=== PATIENT | male | born 1985 | race Caucasian/White ===

== ENCOUNTER 2022-10-31 14:06 | Inpatient (IN) | payer OTHER, MEDICAID, SELFPAY ==
--- NOTE | ~2022-10-31 | CT_ITS ---
EXAMINATION: CT HEAD WITHOUT CONTRAST CLINICAL INFORMATION: Altered mental status. COMPARISON: None. TECHNIQUE: Contiguous axial imaging was performed from the skullbase to vertex without intravenous administration of contrast. This CT examination was performed using dose optimization techniques as appropriate, variously including the following: *Automated exposure control *Adjustment of mA and/or kV according to patient size (this includes techniques or standardized protocols for targeted exams where dose is matched to indication/reason for exam; i.e. extremities or head) *Use of iterative reconstruction technique DLP: 794 mGy-cm. FINDINGS: There is no evidence of acute intracranial hemorrhage or territorial infarction. No abnormal mass effect or midline shift is seen. Resendiz to white matter differentiation is well preserved. No extra-axial fluid collections are identified. The ventricles are normal size. There is no abnormal attenuation within the brain parenchyma. The osseous structures are normal. The mastoid air cells are well aerated. There is trace mucosal thickening dependently in the right maxillary sinus. 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 CT/CT head/brain wo IV con IMPRESSION: No acute intracranial pathology.
[2022-10-31 14:13] VITALS: BP 128/91; PULSE 151; RESP 16; TEMP 36.1; BMI 22.4
--- NOTE | 2022-10-31 14:34 | ED.PSYCH ---
HPI - Psych General Chief Complaint: Psychiatric Symptoms Stated Complaint: SEC 12,DEPRESSED PER EMS Time Seen by Provider: 10/31/22 14:20 Source: patient Mode of arrival: EMS Limitations: no limitations History of Present Illness HPI Narrative: 37-year-old male who presents emergency department on a Section 12 for major depressive disorder, not eating not drinking. The patient states he does have a history intranasal heroin use disorder and has been living in a sober house. States that he recently moved to a new sober house 6 days prior. Since then he has had no appetite and has not been eating or drinking. He was evaluated by [facility] felt that he had major depressive disorder as the cause of his anorexia and he was placed on a Section 12 and sent to the emergency department for a bed search. The patient states he does feel depressed but would not going to details. He denied insomnia. He states that he is not suicidal or homicidal knees never try to injure himself in the past. Review of systems was positive for chills and loss of appetite otherwise was unremarkable. He states that he has not used cocaine since April 2022. He denies any other drug use. Related Data Home Medications Medication Instructions Recorded Confirmed No Known Home Meds 10/31/22 10/31/22 Allergies Allergy/AdvReac Type Severity Reaction Status Date / Time No Known Allergies Allergy Verified 10/31/22 14:47 Review of Systems Review of Systems: Yes all other systems are reviewed and are negative [facility] Past Medical History [facility] Narrative: Past medical history: Major depressive disorder, anxiety, cocaine use disorder. Social history: He has been living in a sober house since April 2022. He states that he last used cocaine April 2022. He denies tobacco and alcohol use. Social History Social History Advance Directives: No Advance Directives Information Provided: Yes Physical Exam Vital Signs: Vital Signs: Last Vital Signs Temp 97.8 F 10/31/22 20:31 Pulse 92 10/31/22 20:31 Resp 18 10/31/22 20:31 BP 123/90 H 10/31/22 20:31 Pulse Ox 98 10/31/22 20:31 O2 Del Method Room Air 10/31/22 20:31 BMI result Body Mass Index 22.4 Awake, alert, male patient, very flat depressed affect, answers all questions appropriately HEENT: Head: Yes normal to inspection, Yes normocephalic and Yes atraumatic Ears: external ears normal General nose exam: Normal external nose present Face and sinus: Yes normal facial exam Mouth: Normal oral and palatal mucosa present Throat: Yes posterior oropharynx normal Eyes: General: appearance normal, both eyes and all related structures Pupils: Equal, round and reactive pupils present Neck: Neck: Yes normal visual inspection, Yes no lymphadenopathy, Yes trachea midline and Yes supple Chest: Chest palpation & inspection: normal inspection of the chest and normal palpation of entire chest wall Resp: Effort & Inspection: normal respiratory effort and able to speak in complete sentences Auscultation: clear to auscultation bilaterally Cardio: Rate: regular rate Rhythm: regular rhythm Heart sounds: S1 normal heart sound present, S2 normal heart sound present and no murmurs GI: Inspection: Yes normal to inspection Palpation (GI): Soft to palpation, nontender and no guarding Auscultation: normal bowel sounds : General: Yes no CVA tenderness Back/Spine/Pelvis: Back: no CVA tenderness Skin: General skin exam: no rashes or lesions noted Neuro: Cranial nerves: Yes CN's II-XII intact bilaterally and Yes Equal, round and reactive pupils present Cognition (Neuro): normal cognition Motor exam (neuro): 5/5 motor strength present throughout Extrem: General: Yes normal to inspection Psych: Appearance: grossly normal Speech and movement: Normal speech and movement present Affect: Indifferent affect present (Flat affect, appears depressed) Attitude: cooperative Thought process: Normal thought process present Thought content: Normal thought content present, suicidality and no homicidality Medications Administered Generic Name Dose Route Start Last Admin Trade Name Freq PRN Reason Stop Dose Admin Dextrose/Sodium Chloride 1,000 mls @ 999 mls/hr 10/31/22 20:00 10/31/22 21:15 D51/2ns IVCONT 999 mls/hr .Q1H1M GABRIEL Administration Dextrose/Sodium Chloride 1,000 mls @ 125 mls/hr 10/31/22 22:00 10/31/22 22:06 D51/2ns IVCONT 125 mls/hr .Q8H GABRIEL Administration Discontinued Medications Generic Name Dose Route Start Last Admin Trade Name Freq PRN Reason Stop Dose Admin Sodium Chloride 1,000 mls @ 999 mls/hr 10/31/22 19:49 10/31/22 20:27 Ns IV 10/31/22 20:49 999 mls/hr .Q1H1M STA Administration Medical Decision Making Medical Decision Making [facility] Narrative: 37-year-old male with a history major depressive disorder, anxiety and cocaine use disorder (has not used cocaine since April 2022) who is living in a sober house and recently moved to a new house 6 days prior. The patient denies suicidal homicide ideation. physical examination was on remarkable except for a flat depressed affect. physical examination was a remarkable. laboratory evaluation was ordered. patient will be kept in the emergency department behavioral health unit until a appropriate disposition can be determined by the care team. 2156: The patient's laboratory evaluation is consistent with severe dehydration as reflected by high sodium of 153 and volume depletion with an elevated BUN of 44. The patient refused to drink any fluid or eat any food while he was in the Behavioral Health Unit. The patient was transferred to the emergency department, an IV was started and he was ordered to get normal saline x1 L and D5 0.5 NS x1 L. Patient continues to refuse oral fluids therefore I ordered D5 0.5 NS at 125 mL/hr. The patient will need to be admitted to the hospitalist service so that we can continue to give him IV fluids until he can be evaluated by Psychiatry to help with his major depressive disorder and anorexia. 2206: I did discuss, over tiger text, the patient's presentation with the covering hospitalist, who will admit the patient for further management. Differential Diagnosis Differential Diagnoses: The differential diagnosis associated with the presentation includes Differential diagnosis includes but is not limited to depression, anxiety, anorexia, electrolyte abnormality, anemia, hypothyroidism. Admission/Observation Consideration of admission/observation: Escalation of care including admission/observation considered Consult Healthcare Provider Management of the patient was discussed with: Hospitalist Lab Data [facility] Lab Attestation statement: I reviewed the patient's lab results. My interpretation patient's laboratory evaluation is as follows: Elevated H&H of 19.759.2-secondary to hemoconcentration. Elevated sodium 153. Elevated BUN 44. Elevated bilirubin 1.3. COVID-19 was negative. Acetaminophen and salicylates negative. ETOH below detectable limits. 10/31/22 17:13 10/31/22 17:13 Labs: Lab Results 10/31/22 10/31/22 10/31/22 Range/Units 14:57 15:28 17:13 WBC 10.9 H (4.8-10.8) X10*3/uL RBC 7.09 H (4.60-5.80) X10*6/uL Hgb 19.7 H (14.0-18.0) g/dl Hct 59.2 H (42.0-52.0) % MCV 83.5 (80.0-98.0) fL MCH 27.8 (27.0-33.0) pg MCHC 33.3 (31.0-36.0) g/dl RDW 11.3 (11.0-16.0) % Plt Count 276 (160-400) X10*3/uL MPV 11.0 (9.4-12.4) fL Immature Gran % (Auto) 0.6 H (0.0-0.4) % Neut % (Auto) 72.6 (45-73) % Lymph % (Auto) 18.8 L (20-40) % [place] % (Auto) 7.1 (2-11) % Eos % (Auto) 0.4 (0-4) % Baso % (Auto) 0.5 (0-2) % Lymph # (Auto) 2.1 (1.2-4.9) X10*3/uL [place] # (Auto) 0.8 (0.1-1.2) X10*3/uL Eos # (Auto) 0.0 (0.0-0.4) X10*3/uL Baso # (Auto) 0.1 (0.0-0.2) X10*3/uL Abs Immat Gran (auto) 0.06 H (0.00-0.03) X10*3/uL Absolute Neuts (auto) 7.9 (2.0-8.3) x10*3/uL Absolute Nucleated RBC 0.000 (0.0-0.012) X10*3/uL Nucleated RBC % (auto) 0.0 (0.0-0.2) /100WBC Sodium (135-145) mmol/L Potassium (3.3-5.1) mmol/L Chloride (96-108) mmol/L Carbon Dioxide (22-29) mmol/L Anion Gap (12-20) BUN (9-16) mg/dL Creatinine (0.5-1.4) mg/dL Estim Creat Clear Calc Estimated GFR Random Glucose (60-115) mg/dL Calcium (8.4-10.2) mg/dL Total Bilirubin (0.0-1.0) mg/dL AST (5-37) U/L ALT (0-40) U/L Alkaline Phosphatase (39-117) U/L Total Protein (6.5-8.0) g/dL Albumin (3.5-5.0) g/dL TSH (0.32-4.0) uIU/mL Salicylates (15-30) mg/dL Urine Opiates Screen Not Detected (Not Detect) Urine Fentanyl Screen Not Detected (Not Detect) Acetaminophen (<30) mcg/mL Ur Barbiturates Screen Not Detected (Not Detect) Ur Phencyclidine Scrn Not Detected (Not Detect) Ur Amphetamines Screen Not Detected (Not Detect) U Benzodiazepines Scrn Not Detected (Not Detect) Urine Cocaine Screen Not Detected (Not Detect) U Marijuana (THC) Screen Not Detected (Not Detect) Ethyl Alcohol mg/dL COVID-19 ([facility]) Negative (Negative) COVID-19 Clin Com See Note 10/31/22 10/31/22 Range/Units 17:13 17:13 WBC (4.8-10.8) X10*3/uL RBC (4.60-5.80) X10*6/uL Hgb (14.0-18.0) g/dl Hct (42.0-52.0) % MCV (80.0-98.0) fL MCH (27.0-33.0) pg MCHC (31.0-36.0) g/dl RDW (11.0-16.0) % Plt Count (160-400) X10*3/uL MPV (9.4-12.4) fL Immature Gran % (Auto) (0.0-0.4) % Neut % (Auto) (45-73) % Lymph % (Auto) (20-40) % [place] % (Auto) (2-11) % Eos % (Auto) (0-4) % Baso % (Auto) (0-2) % Lymph # (Auto) (1.2-4.9) X10*3/uL [place] # (Auto) (0.1-1.2) X10*3/uL Eos # (Auto) (0.0-0.4) X10*3/uL Baso # (Auto) (0.0-0.2) X10*3/uL Abs Immat Gran (auto) (0.00-0.03) X10*3/uL Absolute Neuts (auto) (2.0-8.3) x10*3/uL Absolute Nucleated RBC (0.0-0.012) X10*3/uL Nucleated RBC % (auto) (0.0-0.2) /100WBC Sodium 153 H (135-145) mmol/L Potassium 3.6 (3.3-5.1) mmol/L Chloride 111 H (96-108) mmol/L Carbon Dioxide 25 (22-29) mmol/L Anion Gap 21 H (12-20) BUN 44 H (9-16) mg/dL Creatinine 1.25 (0.5-1.4) mg/dL Estim Creat Clear Calc 86.4 Estimated GFR > 60 Random Glucose 129 H (60-115) mg/dL Calcium 10.5 H (8.4-10.2) mg/dL Total Bilirubin 1.3 H (0.0-1.0) mg/dL AST 22 (5-37) U/L ALT 19 (0-40) U/L Alkaline Phosphatase 84 (39-117) U/L Total Protein 8.9 H (6.5-8.0) g/dL Albumin 4.8 (3.5-5.0) g/dL TSH 0.79 (0.32-4.0) uIU/mL Salicylates < 5.0 L (15-30) mg/dL Urine Opiates Screen (Not Detect) Urine Fentanyl Screen (Not Detect) Acetaminophen < 17 (<30) mcg/mL Ur Barbiturates Screen (Not Detect) Ur Phencyclidine Scrn (Not Detect) Ur Amphetamines Screen (Not Detect) U Benzodiazepines Scrn (Not Detect) Urine Cocaine Screen (Not Detect) U Marijuana (THC) Screen (Not Detect) Ethyl Alcohol < 10 mg/dL COVID-19 ([facility]) (Negative) COVID-19 Clin Com Discharge Plan Discharge Clinical Impression: Depression, Acute hypernatremia, Acute dehydration, Fluid volume depletion, Anorexia Patient Disposition: Admitted As Inpatient Interventions: [place]-Suicide Risk Severity Scale Last Done: 10/31/22 14:16
[2022-10-31 15:24] LABS: Amphetamine Screen Urine Not Detected (Not Detect); Barbiturates, Urine Not Detected (Not Detect); Benzodiazepines Screen Urine Not Detected (Not Detect); Cannabinoid Screen Urine Not Detected (Not Detect); Cocaine Screen Urine Not Detected (Not Detect); Fentanyl, urine Not Detected (Not Detect); Opiate Screen Urine Not Detected (Not Detect); Phencyclidine Screen Urine Not Detected (Not Detect)
[2022-10-31 16:11] LABS: COVID-19 Test Negative (Negative); IDNOW Serial# 9DB6401D
[2022-10-31 17:21] LABS: MANUAL DIFF FLAG NO
[2022-10-31 17:27] LABS: Basophils Absolute Auto 0.1 X10*3/uL (0.0-0.2); Basophils Percent Auto 0.5 % (0-2); Eosinophils Percent Auto 0.4 % (0-4); Hemoglobin 19.7 g/dl (14.0-18.0); Imm Gran Abs Auto 0.06 X10*3/uL (0.00-0.03); Imm Gran Pct Auto 0.6 % (0.0-0.4); Lymphocytes Absolute Auto 2.1 X10*3/uL (1.2-4.9); Lymphocytes Percent Auto 18.8 % (20-40); Mean Corpuscular HGB Conc 33.3 g/dl (31.0-36.0); Mean Corpuscular Hemoglobin 27.8 pg (27.0-33.0); Mean Corpuscular Volume 83.5 fL (80.0-98.0); Monocytes Absolute Auto 0.8 X10*3/uL (0.1-1.2); Monocytes Percent Auto 7.1 % (2-11); Neutrophils Absolute Auto 7.9 x10*3/uL (2.0-8.3); Neutrophils Percent Auto 72.6 % (45-73); Platelet Count 276 X10*3/uL (160-400); Red Blood Count 7.09 X10*6/uL (4.60-5.80); Red Cell Distribution Width 11.3 % (11.0-16.0); White Blood Count 10.9 X10*3/uL (4.8-10.8)
[2022-10-31 17:36] LABS: Hematocrit 59.2 % (42.0-52.0)
[2022-10-31 17:51] LABS: Acetaminophen LAB < 17 mcg/mL (<30); Alanine Aminotransferase 19 U/L (0-40); Albumin Level 4.8 g/dL (3.5-5.0); Alkaline Phosphatase 84 U/L (39-117); Anion Gap 21 (12-20); Aspartate Amino Transferase 22 U/L (5-37); Bilirubin Total 1.3 mg/dL (0.0-1.0); Blood Urea Nitrogen 44 mg/dL (9-16); Calcium 10.5 mg/dL (8.4-10.2); Carbon Dioxide 25 mmol/L (22-29); Chloride 111 mmol/L (96-108); Creatinine Clr Calc Pharmacy 86.4; Estimated Glomerular Filt Rate > 60; Ethanol < 10 mg/dL; Glucose Random 129 mg/dL (60-115); Potassium 3.6 mmol/L (3.3-5.1); Salicylate < 5.0 mg/dL (15-30); Sodium 153 mmol/L (135-145); Total Protein 8.9 g/dL (6.5-8.0)
[2022-10-31 18:07] LABS: TSH reflex Free T4 0.79 uIU/mL (0.32-4.0)
[2022-10-31 19:18] VITALS: BP 103/71; PULSE 128; RESP 16; TEMP 37; O2SAT 93
[2022-10-31] MEDS: 0.9 % Sodium Chloride 1,000 ML 999 ML IV (20:27)
[2022-10-31 20:31] VITALS: BP 123/90; PULSE 92; RESP 18; TEMP 36.6; O2SAT 98
[2022-10-31] MEDS: Dextrose 5 % and 0.45 % NaCl 1,000 ML 999 ML IVCONT (21:15)
[2022-10-31] MEDS: Dextrose 5 % and 0.45 % NaCl 1,000 ML 125 ML IVCONT (22:06)
[2022-10-31 22:12] VITALS: BP 110/79; PULSE 81; RESP 18; TEMP 36.6; O2SAT 99
--- NOTE | 2022-10-31 22:14 | P.HPHOSP_ITS ---
History of Present Illness Date of Service: 10/31/22 Chief Complaint: Depression This is a 37-year-old male with pertinent history of cocaine use disorder who presents from sober home on a Section 12 for not eating and drinking. Patient states he has a history of intranasal heroin use disorder and he last used in April 2022. Over the last 5-6 days, patient states that he has been feeling low and does not have an appetite. Patient was evaluated by [facility] and felt that his mood disorder mainly depression was contributing to his anorexia and he was placed on Section 12 and sent to the ER. Patient denies any complaints. No fever, chills, nausea, vomiting, belly pain. Reports change in interest, energy, appetite, sleep and concentration. No suicidal or homicidal ideations. He denies chest discomfort, palpitations, changes in urinary or bowel habits In the emergency department, sodium was found to be elevated Review of Systems Constitutional: Constitutional: Reports anorexia and Reports lethargy Cardiovascular: Cardiovascular: Reports no additional cardiovascular complaints Respiratory: Respiratory: Reports no additional respiratory complaints Gastrointestinal: Gastrointestinal: Reports no additional gastrointestinal complaints Neurologic: Reports behavioral changes Psychiatric: Psychiatric: Reports behavioral changes, Reports change in mahogany etite, Reports depression and Reports anhedonia PMFSH Medical History Cocaine use disorder Functional capacity: independent ambulation Pertinent family history: Does not know of significant family history in first-degree relatives Social History Advance Directives: No Advance Directives Information Provided: Yes Meds Allergies Allergy/AdvReac Type Severity Reaction Status Date / Time No Known Allergies Allergy Verified 10/31/22 14:47 Active Medications: Current Medications Dextrose/Sodium Chloride (D51/2ns) 1,000 mls @ 125 mls/hr IVCONT .Q8H GABRIEL Last Admin: 10/31/22 22:06 Dose: 125 mls/hr Home Medications Medication Instructions Recorded Confirmed Last Taken Type No Known Home Meds 10/31/22 10/31/22 Unknown History Physical Exam Vital Signs and Narrative: Vital Signs: Last Vital Signs Temp 97.8 F 10/31/22 20:31 Pulse 92 10/31/22 20:31 Resp 18 10/31/22 20:31 BP 123/90 H 10/31/22 20:31 Pulse Ox 98 10/31/22 20:31 O2 Del Method Room Air 10/31/22 20:31 BMI result Body Mass Index 22.4 Middle-aged male lying in bed in no distress Neck supple, no JVD Regular rate and rhythm, S1-S2 heard Regular breath sounds bilaterally, no wheezing or crackles appreciated Abdomen soft nontender, no guarding, no rigidity Patient is awake, alert and oriented to self, place, time and person ; no focal motor deficit Psych: Normal mood No pedal edema Results Labs 10/31/22 17:13 10/31/22 17:13 Labs: Laboratory Results - last 24 hr 10/31/22 10/31/22 10/31/22 14:57 15:28 17:13 MCV 83.5 MCH 27.8 MCHC 33.3 RDW 11.3 Plt Count 276 MPV 11.0 Immature Gran % (Auto) 0.6 H Neut % (Auto) 72.6 Lymph % (Auto) 18.8 L [place] % (Auto) 7.1 Eos % (Auto) 0.4 Baso % (Auto) 0.5 Lymph # (Auto) 2.1 [place] # (Auto) 0.8 Eos # (Auto) 0.0 Baso # (Auto) 0.1 Abs Immat Gran (auto) 0.06 H Absolute Neuts (auto) 7.9 Absolute Nucleated RBC 0.000 Nucleated RBC % (auto) 0.0 Anion Gap Estim Creat Clear Calc Estimated GFR Random Glucose Calcium Total Bilirubin AST ALT Alkaline Phosphatase Total Protein Albumin TSH Salicylates Urine Opiates Screen Not Detected Urine Fentanyl Screen Not Detected Acetaminophen Ur Barbiturates Screen Not Detected Ur Phencyclidine Scrn Not Detected Ur Amphetamines Screen Not Detected U Benzodiazepines Scrn Not Detected Urine Cocaine Screen Not Detected U Marijuana (THC) Screen Not Detected Ethyl Alcohol COVID-19 ([facility]) Negative COVID-19 Clin Com See Note 10/31/22 10/31/22 17:13 17:13 MCV MCH MCHC RDW Plt Count MPV Immature Gran % (Auto) Neut % (Auto) Lymph % (Auto) [place] % (Auto) Eos % (Auto) Baso % (Auto) Lymph # (Auto) [place] # (Auto) Eos # (Auto) Baso # (Auto) Abs Immat Gran (auto) Absolute Neuts (auto) Absolute Nucleated RBC Nucleated RBC % (auto) Anion Gap 21 H Estim Creat Clear Calc 86.4 Estimated GFR > 60 Random Glucose 129 H Calcium 10.5 H Total Bilirubin 1.3 H AST 22 ALT 19 Alkaline Phosphatase 84 Total Protein 8.9 H Albumin 4.8 TSH 0.79 Salicylates < 5.0 L Urine Opiates Screen Urine Fentanyl Screen Acetaminophen < 17 Ur Barbiturates Screen Ur Phencyclidine Scrn Ur Amphetamines Screen U Benzodiazepines Scrn Urine Cocaine Screen U Marijuana (THC) Screen Ethyl Alcohol < 10 COVID-19 ([facility]) COVID-19 Clin Com Assessment and Plan (1) Acute hypernatremia: Status: Acute (2) Acute dehydration: Status: Acute Plan This is a 37-year-old male with pertinent history of cocaine use disorder who presents from sober home on a Section 12 for not eating and drinking. #. Acute hypernatremia due to free water deficit. Resuscitating with isotonic and hypotonic fluids. Monitor sodium #. Relative polycythemia in the setting of intravascular volume depletion #. ?Major depressive disorder contributing to above. Consulting psych and care team #. Cocaine use disorder. Last used in April 2022. UDS negative DVT prophylaxis: Lovenox Full code Regular diet Time Spent With Patient Time: Total time managing care of this patient today ____ minutes. Quality Stroke Does the patient have a stroke diagnosis?: No VTE Prior VTE?: No VTE Risk Level:: Medical - moderate - high VTE Device Contraindication: Treatment Not Indicated VTE Drug Contraindication: N/A - Med Ordered
--- NOTE | 2022-10-31 23:40 | PC.NURSE ---
Report to Tabatha [facility]AND on 3S
[2022-11-01] VITALS (8 sets, daily range): BP systolic 108–130; BP diastolic 68–82; PULSE 68–100; RESP 16–18; TEMP 36–36.7; O2SAT 96–99; BMI 22.4
[2022-11-01 05:46] LABS: MANUAL DIFF FLAG NO
[2022-11-01 05:50] LABS: Basophils Percent Auto 0.5 % (0-2); Eosinophils Absolute Auto 0.1 X10*3/uL (0.0-0.4); Eosinophils Percent Auto 1.4 % (0-4); Hematocrit 46.4 % (42.0-52.0); Hemoglobin 15.7 g/dl (14.0-18.0); Imm Gran Abs Auto 0.02 X10*3/uL (0.00-0.03); Imm Gran Pct Auto 0.2 % (0.0-0.4); Lymphocytes Absolute Auto 2.4 X10*3/uL (1.2-4.9); Mean Corpuscular HGB Conc 33.8 g/dl (31.0-36.0); Mean Corpuscular Hemoglobin 28.5 pg (27.0-33.0); Mean Corpuscular Volume 84.2 fL (80.0-98.0); Mean Platelet Volume 11.1 fL (9.4-12.4); Monocytes Absolute Auto 0.6 X10*3/uL (0.1-1.2); Monocytes Percent Auto 7.1 % (2-11); Neutrophils Absolute Auto 5.3 x10*3/uL (2.0-8.3); Neutrophils Percent Auto 62.8 % (45-73); Platelet Count 197 X10*3/uL (160-400); Red Blood Count 5.51 X10*6/uL (4.60-5.80); Red Cell Distribution Width 11.2 % (11.0-16.0); White Blood Count 8.4 X10*3/uL (4.8-10.8)
[2022-11-01 06:06] LABS: Anion Gap 12 (12-20); Blood Urea Nitrogen 31 mg/dL (9-16); Calcium 9.1 mg/dL (8.4-10.2); Carbon Dioxide 27 mmol/L (22-29); Chloride 110 mmol/L (96-108); Creatinine Clr Calc Pharmacy 125.9; Estimated Glomerular Filt Rate > 60; Glucose Random 145 mg/dL (60-115); Potassium 3.3 mmol/L (3.3-5.1); Sodium 146 mmol/L (135-145)
--- NOTE | 2022-11-01 08:24 | HO.PM.IMPN ---
Subjective Subjective Date of Service: 11/01/22 Interval History: f/u on depression, high sodium depressed but denies SI Physical Exam Vital Signs: Vital Signs: Last Vital Signs Temp 98.1 F 11/01/22 07:30 Pulse 78 11/01/22 07:30 Resp 16 11/01/22 07:30 BP 112/73 11/01/22 07:30 Pulse Ox 98 11/01/22 07:30 O2 Del Method Room Air 11/01/22 07:30 BMI result Body Mass Index 22.4 Const: Other: General: AO X 3, no acute distress Resp: CTA bilateral CVS: S1,S2,RRR GI: +BS, NT, no distention Skin: No rash Neuro: motor grossly intact Psych: appropriate affect, No SI Objective Data Active Medications Acetaminophen (Acetaminophen 325 Mg Tablet) 650 mg PO Q6H PRN PRN Reason: Pain, Mild (Pain Scale 1-3) Enoxaparin Sodium (Enoxaparin Sodium 40 Mg/0.4 Ml Syringe) 40 mg SUBCUT Q24H [facility] Last Admin: 10/31/22 23:01 Dose: Not Given Documented By: LUMA Non-Admin Reason: Patient Refused Dextrose/Sodium Chloride (D51/2ns) 1,000 mls @ 125 mls/hr IVCONT .Q8H [facility] Last Admin: 11/01/22 06:18 Dose: Not Given Documented By: TIFFANIE Non-Admin Reason: IV Running Ondansetron HCl (Ondansetron Hcl 4 Mg/2 Ml Vial) 4 mg IVPUSH Q8H PRN PRN Reason: Nausea and Vomiting Sodium Chloride (0.9 % Sodium Chloride Flush 3 Ml Syringe) 3 ml IVFLUSH QSHIFT [facility] Last Admin: 10/31/22 23:54 Dose: Not Given Documented By: TIFFANIE Non-Admin Reason: IV Running Labs 11/01/22 05:41 11/01/22 05:41 Labs: Laboratory Results - last 24 hr 10/31/22 10/31/22 10/31/22 14:57 15:28 17:13 MCV 83.5 MCH 27.8 MCHC 33.3 RDW 11.3 Plt Count 276 MPV 11.0 Immature Gran % (Auto) 0.6 H Neut % (Auto) 72.6 Lymph % (Auto) 18.8 L [place] % (Auto) 7.1 Eos % (Auto) 0.4 Baso % (Auto) 0.5 Lymph # (Auto) 2.1 [place] # (Auto) 0.8 Eos # (Auto) 0.0 Baso # (Auto) 0.1 Abs Immat Gran (auto) 0.06 H Absolute Neuts (auto) 7.9 Absolute Nucleated RBC 0.000 Nucleated RBC % (auto) 0.0 Anion Gap Estim Creat Clear Calc Estimated GFR Random Glucose Calcium Total Bilirubin AST ALT Alkaline Phosphatase Total Protein Albumin TSH Salicylates Urine Opiates Screen Not Detected Urine Fentanyl Screen Not Detected Acetaminophen Ur Barbiturates Screen Not Detected Ur Phencyclidine Scrn Not Detected Ur Amphetamines Screen Not Detected U Benzodiazepines Scrn Not Detected Urine Cocaine Screen Not Detected U Marijuana (THC) Screen Not Detected Ethyl Alcohol COVID-19 ([facility]) Negative [facility]-[place] Com See Note 10/31/22 10/31/22 11/01/22 17:13 17:13 05:41 MCV 84.2 MCH 28.5 MCHC 33.8 RDW 11.2 Plt Count 197 D MPV 11.1 Immature Gran % (Auto) 0.2 Neut % (Auto) 62.8 Lymph % (Auto) 28.0 [place] % (Auto) 7.1 Eos % (Auto) 1.4 Baso % (Auto) 0.5 Lymph # (Auto) 2.4 [place] # (Auto) 0.6 Eos # (Auto) 0.1 Baso # (Auto) 0.0 Abs Immat Gran (auto) 0.02 Absolute Neuts (auto) 5.3 Absolute Nucleated RBC 0.000 Nucleated RBC % (auto) 0.0 Anion Gap 21 H Estim Creat Clear Calc 86.4 Estimated GFR > 60 Random Glucose 129 H Calcium 10.5 H Total Bilirubin 1.3 H AST 22 ALT 19 Alkaline Phosphatase 84 Total Protein 8.9 H Albumin 4.8 TSH 0.79 Salicylates < 5.0 L Urine Opiates Screen Urine Fentanyl Screen Acetaminophen < 17 Ur Barbiturates Screen Ur Phencyclidine Scrn Ur Amphetamines Screen U Benzodiazepines Scrn Urine Cocaine Screen U Marijuana (THC) Screen Ethyl Alcohol < 10 COVID-19 ([facility]) COVID-19 [employer] Com 11/01/22 05:41 MCV MCH MCHC RDW Plt Count MPV Immature Gran % (Auto) Neut % (Auto) Lymph % (Auto) [place] % (Auto) Eos % (Auto) Baso % (Auto) Lymph # (Auto) [place] # (Auto) Eos # (Auto) Baso # (Auto) Abs Immat Gran (auto) Absolute Neuts (auto) Absolute Nucleated RBC Nucleated RBC % (auto) Anion Gap 12 Estim Creat Clear Calc 125.9 Estimated GFR > 60 Random Glucose 145 H Calcium 9.1 D Total Bilirubin AST ALT Alkaline Phosphatase Total Protein Albumin TSH Salicylates Urine Opiates Screen Urine Fentanyl Screen Acetaminophen Ur Barbiturates Screen Ur Phencyclidine Scrn Ur Amphetamines Screen U Benzodiazepines Scrn Urine Cocaine Screen U Marijuana (THC) Screen Ethyl Alcohol COVID-19 ([facility]) COVID-19 Clin Com Assessment and Plan (1) Depression: Status: Acute (2) Acute hypernatremia: Status: Acute Plan 37-year-old male with pertinent history of cocaine use disorder who presents from sober home on a Section 12 for not eating and drinking. #. Acute hypernatremia due to free water deficit, Na is 146 today after fluid, encourage oral water #. Relative polycythemia in the setting of intravascular volume depletion, resolved #. ?Major depressive disorder contributing to above. Consulting psych and care team pending, medically clear #. Cocaine use disorder. Last used in April 2022. UDS negative DVT prophylaxis: Lovenox Full code Regular diet need for inpatient: hypernatremia, depression SI at risk for self harm Time Spent With Patient Time: Total time managing care of this patient today ____ minutes. Quality Stroke Does the patient have a stroke diagnosis?: No VTE Prior VTE?: No VTE Risk Level:: Medical - moderate - high VTE Device Contraindication: Treatment Not Indicated VTE Drug Contraindication: N/A - Med Ordered
--- NOTE | 2022-11-01 08:30 | P.DS_ITS ---
DS: Providers Provider Date of Service: 11/03/22 Date of admission: 10/31/22 22:13 Primary care physician: Unknown Physician Consults: 10/31/22 22:13 Consult to Care Team Routine Comment: Reason for consultation: MDD Consult to Psychiatry Routine Consulting Provider: Psych Covering Reason for consultation: major depressive disorder DS: Diagnosis Discharge Diagnosis (1) Depression: Status: Acute (2) Acute hypernatremia: Status: Acute DS: Summary Hospital Course Hospital Course: Chief Complaint: Depression This is a 37-year-old male with pertinent history of cocaine use disorder who presents from sober home on a Section 12 for not eating and drinking.? Patient states he has a history of intranasal heroin use disorder and he last used in April 2022.? Over the last 5-6 days, patient states that he has been feeling low and does not have an appetite.? Patient was evaluated by [facility] and felt that his mood disorder mainly depression was contributing to his anorexia and he was placed on Section 12 and sent to the ER.? Patient denies any complaints.? No fever, chills, nausea, vomiting, belly pain.? Reports change in interest, energy, appetite, sleep and concentration.? No suicidal or homicidal ideations.? He denies chest discomfort, palpitations, changes in urinary or bowel habits In the emergency department, sodium was found to be elevated Hospital course: He presented with depression with apathy (not eating or drinking) from a sober home under section 12 and noted to have high sodium of 153 and JAN from not drinking enough water, he was treated with IVF and encouraged to drink plenty of water, sodium level is now 145, and creatinine is normal at 0.76. He continues to refuse to eat or drink or participate in any acivity. He shows sings of catatonia and has been given IV ativan which seems to have improved with him talking more. CT head is normal, ECG is normal. Psychiatry is following him and recommends inpatient Psych treatment. Time Spent with Patient Time attestation: Total time managing care of this patient today ____ minutes. Discharge coordination time: Greater than 30 minutes Quality: Safe Use of Opioids Does Pt have an Active Cancer Diagnosis on the Problem List?: No Quality: Stroke Does the patient have a stroke diagnosis?: No Physical Exam Vital Signs: Vital Signs: Selected Entries 11/03/22 07:25 Temperature 98.0 F Pulse Rate 70 Respiratory Rate 16 Blood Pressure 106/71 Pulse Oximetry 99 Oxygen Delivery Me thod Room Air Const: Other: General: AO X 3, no acute distress Resp: CTA bilateral CVS: S1,S2,RRR GI: +BS, NT, no distention Skin: No rash Neuro: motor grossly intact Psych: flat DS: Data Data Completed and Pending Labs on day of discharge: Laboratory Results - last 24 hr 10/31/22 10/31/22 10/31/22 14:57 15:28 17:13 WBC 10.9 H RBC 7.09 H Hgb 19.7 H Hct 59.2 H MCV 83.5 MCH 27.8 MCHC 33.3 RDW 11.3 Plt Count 276 MPV 11.0 Immature Gran % (Auto) 0.6 H Neut % (Auto) 72.6 Lymph % (Auto) 18.8 L [place] % (Auto) 7.1 Eos % (Auto) 0.4 Baso % (Auto) 0.5 Lymph # (Auto) 2.1 [place] # (Auto) 0.8 Eos # (Auto) 0.0 Baso # (Auto) 0.1 Abs Immat Gran (auto) 0.06 H Absolute Neuts (auto) 7.9 Absolute Nucleated RBC 0.000 Nucleated RBC % (auto) 0.0 Sodium Potassium Chloride Carbon Dioxide Anion Gap BUN Creatinine Estim Creat Clear Calc Estimated GFR Random Glucose Calcium Total Bilirubin AST ALT Alkaline Phosphatase Total Protein Albumin TSH Salicylates Urine Opiates Screen Not Detected Urine Fentanyl Screen Not Detected Acetaminophen Ur Barbiturates Screen Not Detected Ur Phencyclidine Scrn Not Detected Ur Amphetamines Screen Not Detected U Benzodiazepines Scrn Not Detected Urine Cocaine Screen Not Detected U Marijuana (THC) Screen Not Detected Ethyl Alcohol COVID-19 ([facility]) Negative COVID-19 Clin Com See Note 10/31/22 10/31/22 11/01/22 17:13 17:13 05:41 WBC 8.4 RBC 5.51 D Hgb 15.7 D Hct 46.4 D MCV 84.2 MCH 28.5 MCHC 33.8 RDW 11.2 Plt Count 197 D MPV 11.1 Immature Gran % (Auto) 0.2 Neut % (Auto) 62.8 Lymph % (Auto) 28.0 [place] % (Auto) 7.1 Eos % (Auto) 1.4 Baso % (Auto) 0.5 Lymph # (Auto) 2.4 [place] # (Auto) 0.6 Eos # (Auto) 0.1 Baso # (Auto) 0.0 Abs Immat Gran (auto) 0.02 Absolute Neuts (auto) 5.3 Absolute Nucleated RBC 0.000 Nucleated RBC % (auto) 0.0 Sodium 153 H Potassium 3.6 Chloride 111 H Carbon Dioxide 25 Anion Gap 21 H BUN 44 H Creatinine 1.25 Estim Creat Clear Calc 86.4 Estimated GFR > 60 Random Glucose 129 H Calcium 10.5 H Total Bilirubin 1.3 H AST 22 ALT 19 Alkaline Phosphatase 84 Total Protein 8.9 H Albumin 4.8 TSH 0.79 Salicylates < 5.0 L Urine Opiates Screen Urine Fentanyl Screen Acetaminophen < 17 Ur Barbiturates Screen Ur Phencyclidine Scrn Ur Amphetamines Screen U Benzodiazepines Scrn Urine Cocaine Screen U Marijuana (THC) Screen Ethyl Alcohol < 10 COVID-19 ([facility]) COVIDColibrí 11/01/22 05:41 WBC RBC Hgb Hct MCV MCH MCHC RDW Plt Count MPV Immature Gran % (Auto) Neut % (Auto) Lymph % (Auto) [place] % (Auto) Eos % (Auto) Baso % (Auto) Lymph # (Auto) [place] # (Auto) Eos # (Auto) Baso # (Auto) Abs Immat Gran (auto) Absolute Neuts (auto) Absolute Nucleated RBC Nucleated RBC % (auto) Sodium 146 H Potassium 3.3 Chloride 110 H Carbon Dioxide 27 Anion Gap 12 BUN 31 H Creatinine 0.86 Estim Creat Clear Calc 125.9 Estimated GFR > 60 Random Glucose 145 H Calcium 9.1 D Total Bilirubin AST ALT Alkaline Phosphatase Total Protein Albumin TSH Salicylates Urine Opiates Screen Urine Fentanyl Screen Acetaminophen Ur Barbiturates Screen Ur Phencyclidine Scrn Ur Amphetamines Screen U Benzodiazepines Scrn Urine Cocaine Screen U Marijuana (THC) Screen Ethyl Alcohol COVID-19 ([facility]) COVID-Givit Discharge Plan Discharge Anticipated Discharge Date/Time: 11/03/22 08:23 Patient Disposition: Xfer Psychiatric Hosp Discharge Diagnosis: Depression, hypernatremia Referrals: Physician,Unknown J [Primary Care Provider] - 1 Week Discharge Medications: Continued No Known Home Meds Discharge Orders: Discharge Order (Routine); Ordered 11/02/22 Ordered By: Sohail Gravesapah Diet: Advance to usual diet Activity on Discharge: As tolerated Stand Alone Forms: Patient Portal Discharge page Care Plan Goals: Depression treatment Health Concerns: major depression Plan of Treatment: inpatient psychiatric care Assessment: see above
--- NOTE | 2022-11-01 08:48 | MHC.CM.PN ---
PATIENT NOT WAKING TO CASE MANAGEMENT ATTEMPTS. OBSERVER STATES THAT PATIENT HAS BEEN IN AND OUT OF SLEEP. TERRY 11/01 LEFT BEDSIDE. CASE MANAGEMENT NAME WRITTEN ON WHITE BOARD
[2022-11-01] MEDS: 0.9 % Sodium Chloride Flush 3 ML SYRINGE IVFLUSH ×2 (10:18→16:38)
--- NOTE | 2022-11-01 13:02 | PM.PSYCN ---
History of Present Illness Date of Service: 11/01/2022 Chief Complaint: Electrolyte imbalance Reason for Consult: not eating/moving or talking much Requesting physician: Sohail Scott Discussed with referring provider: Yes Sources of Information: patient interviewed, chart reviewed and crisis/core team assessment reviewed HPI Narrative: Mr. Thornton is a 37 year-old male with hx of cocaine in early remission who was assessed by [facility] at request of staff from [facility] where pt has resided since 10/26/2022. Prior to going there, pt was at [facility] from 10/19-10/26. Per [facility] crisis, pt has not showered or had any oral intake since he was admitted to their program. When pt was evaluated by [facility] clinician, pt minimally verbal and only words were I'm fine, I'm tired, I just want to rest. He was sent on sect 12 to [facility] ED. He was found to have hypernatremia (154), BUN 44, Cr 1.25. He received fluids, today BUN 31, Cr 0.86, Na 146. Utox was negative. Pt continues to declined oral food. He is in bed not interacting minimally verbal. Pt declined to answer most questions. He closed his eyes. Then later stated I was asked this questions before. This music writer commented on fact that he also did not provide much information to [facility] clinician nor to [facility]. we discussed concern of pt not having any oral intake and this again causing electrolyte abnormalities and problems with renal function. Pt did not show understanding of this information was mostly staring. Medical Evaluation Reviewed: Yes PENDING SALE TO [facility] Medical History Cocaine use disorder Diagnostics Vital Signs (24Hr): Vital Signs - 24 hr 10/31/22 14:13 10/31/22 19:18 10/31/22 20:31 Temperature 97.0 F 98.6 F 97.8 F Pulse Rate 151 H 128 H 92 Respiratory Rate 16 16 18 Blood Pressure 128/91 H 103/71 123/90 H Pulse Oximetry 93 98 Oxygen Delivery Method Room Air Room Air 10/31/22 22:12 11/01/22 00:00 11/01/22 06:00 Temperature 98 F 96.8 F Pulse Rate 81 100 Respiratory Rate 18 16 16 Blood Pressure 110/79 130/82 Pulse Oximetry 99 98 Oxygen Delivery Method Room Air Room Air 11/01/22 03:58 11/01/22 07:30 11/01/22 11:23 Temperature 97.4 F 98.1 F 97.7 F Pulse Rate 68 78 81 Respiratory Rate 16 16 18 Blood Pressure 114/74 112/73 118/74 Pulse Oximetry 96 98 96 Oxygen Delivery Method Room Air Room Air Room Air BMI result Body Mass Index 22.4 Labs 11/01/22 05:41 11/01/22 05:41 Labs: Laboratory Results - last 48 hr 10/31/22 10/31/22 10/31/22 14:57 15:28 17:13 WBC 10.9 H RBC 7.09 H Hgb 19.7 H Hct 59.2 H MCV 83.5 MCH 27.8 MCHC 33.3 RDW 11.3 Plt Count 276 MPV 11.0 Immature Gran % (Auto) 0.6 H Neut % (Auto) 72.6 Lymph % (Auto) 18.8 L [place] % (Auto) 7.1 Eos % (Auto) 0.4 Baso % (Auto) 0.5 Lymph # (Auto) 2.1 [place] # (Auto) 0.8 Eos # (Auto) 0.0 Baso # (Auto) 0.1 Abs Immat Gran (auto) 0.06 H Absolute Neuts (auto) 7.9 Absolute Nucleated RBC 0.000 Nucleated RBC % (auto) 0.0 Sodium Potassium Chloride Carbon Dioxide Anion Gap BUN Creatinine Estim Creat Clear Calc Estimated GFR Random Glucose Calcium Total Bilirubin AST ALT Alkaline Phosphatase Total Protein Albumin TSH Salicylates Urine Opiates Screen Not Detected Urine Fentanyl Screen Not Detected Acetaminophen Ur Barbiturates Screen Not Detected Ur Phencyclidine Scrn Not Detected Ur Amphetamines Screen Not Detected U Benzodiazepines Scrn Not Detected Urine Cocaine Screen Not Detected U Marijuana (THC) Screen Not Detected Ethyl Alcohol COVID-19 ([facility]) Negative COVID-19 Clin Com See Note 10/31/22 10/31/22 11/01/22 17:13 17:13 05:41 WBC 8.4 RBC 5.51 D Hgb 15.7 D Hct 46.4 D MCV 84.2 MCH 28.5 MCHC 33.8 RDW 11.2 Plt Count 197 D MPV 11.1 Immature Gran % (Auto) 0.2 Neut % (Auto) 62.8 Lymph % (Auto) 28.0 [place] % (Auto) 7.1 Eos % (Auto) 1.4 Baso % (Auto) 0.5 Lymph # (Auto) 2.4 [place] # (Auto) 0.6 Eos # (Auto) 0.1 Baso # (Auto) 0.0 Abs Immat Gran (auto) 0.02 Absolute Neuts (auto) 5.3 Absolute Nucleated RBC 0.000 Nucleated RBC % (auto) 0.0 Sodium 153 H Potassium 3.6 Chloride 111 H Carbon Dioxide 25 Anion Gap 21 H BUN 44 H Creatinine 1.25 Estim Creat Clear Calc 86.4 Estimated GFR > 60 Random Glucose 129 H Calcium 10.5 H Total Bilirubin 1.3 H AST 22 ALT 19 Alkaline Phosphatase 84 Total Protein 8.9 H Albumin 4.8 TSH 0.79 Salicylates < 5.0 L Urine Opiates Screen Urine Fentanyl Screen Acetaminophen < 17 Ur Barbiturates Screen Ur Phencyclidine Scrn Ur Amphetamines Screen U Benzodiazepines Scrn Urine Cocaine Screen U Marijuana (THC) Screen Ethyl Alcohol < 10 COVID-19 ([facility]) COVID-19 Per [facility] 11/01/22 05:41 WBC RBC Hgb Hct MCV MCH MCHC RDW Plt Count MPV Immature Gran % (Auto) Neut % (Auto) Lymph % (Auto) [place] % (Auto) Eos % (Auto) Baso % (Auto) Lymph # (Auto) [place] # (Auto) Eos # (Auto) Baso # (Auto) Abs Immat Gran (auto) Absolute Neuts (auto) Absolute Nucleated RBC Nucleated RBC % (auto) Sodium 146 H Potassium 3.3 Chloride 110 H Carbon Dioxide 27 Anion Gap 12 BUN 31 H Creatinine 0.86 Estim Creat Clear Calc 125.9 Estimated GFR > 60 Random Glucose 145 H Calcium 9.1 D Total Bilirubin AST ALT Alkaline Phosphatase Total Protein Albumin TSH Salicylates Urine Opiates Screen Urine Fentanyl Screen Acetaminophen Ur Barbiturates Screen Ur Phencyclidine Scrn Ur Amphetamines Screen U Benzodiazepines Scrn Urine Cocaine Screen U Marijuana (THC) Screen Ethyl Alcohol COVID-19 ([facility]) COVID-19 Per [facility] Mental Status Exam Mental Status Exam Narrative: Appearance: wearing hospital gown, in NAD Behavior: minimally engaging Speech: minimally spontaneous Psychomotor: retardation noted TP: single word TC: minimally verbal Mood: did not respond Affect: constricted VH/AH: unclear if internally preoccupied Delusions: unable to assess Insight/judgment: impaired x2 Memory/cog: alert, not able to assess orientation as pt does not respond Medications Medications Current Medications Acetaminophen (Acetaminophen 325 Mg Tablet) 650 mg PO Q6H PRN PRN Reason: Pain, Mild (Pain Scale 1-3) Enoxaparin Sodium (Enoxaparin Sodium 40 Mg/0.4 Ml Syringe) 40 mg SUBCUT Q24H [facility] Last Admin: 10/31/22 23:01 Dose: Not Given Dextrose/Sodium Chloride (D51/2ns) 1,000 mls @ 125 mls/hr IVCONT .Q8H [facility] Last Infusion: 11/01/22 09:10 Dose: Infused Ondansetron HCl (Ondansetron Hcl 4 Mg/2 Ml Vial) 4 mg IVPUSH Q8H PRN PRN Reason: Nausea and Vomiting Sodium Chloride (0.9 % Sodium Chloride Flush 3 Ml Syringe) 3 ml IVFLUSH QSHIFT [facility] Last Admin: 11/01/22 10:18 Dose: 3 ml Allergies Allergies Allergy/AdvReac Type Severity Reaction Status Date / Time No Known Allergies Allergy Verified 10/31/22 14:47 Assessment & Plan Assessment & Plan (1) Mood disorder: Status: Acute Code(s): F39 - Unspecified mood [affective] disorder (2) Cocaine use disorder, mild, in early remission: Status: Acute Code(s): F14.11 - Cocaine abuse, in remission Plan Mr. Thornton is a 37 year-old male with hx of cocaine, opioid use in early remission. Pt was transferred to [facility] and since arrival to that facility on 10/26 pt has not talk much, not eating, not showering, in his room. In the ED, utox is neg. found to have hypernatremia, BUN elevation 44, Cr 1.25 in setting of dehydration due to poor oral intake. Labs improved Na 146, BUN 31, 0.86. Pt not talking, eyes close, unclear if underlying psychosis with catatonic features. Pt not showing understanding of consequences if not eating properly. He continues to decline oral intake. PLAN 1. Needs inpatient psych level of care. However, given poor oral intake and need for fluids that may have to be I fluids until mentation improves. 2. Ativan challenge r/o catatonia- given ativan 2mg IV or IM. Total time managing care of this patient today ____ minutes.
[2022-11-01] MEDS: LORazepam 2 MG/ML VIAL IVPUSH (15:04)
[2022-11-01] MEDS: Dextrose 5 % and 0.45 % NaCl 1,000 ML 125 ML IVCONT (18:29)
[2022-11-01] MEDS: Enoxaparin Sodium 40 MG/0.4 ML SYRINGE SUBCUT (22:48)
--- NOTE | 2022-11-02 | ECG_ITS ---
Test Reason : PRE ECT Blood Pressure : / mmHG Vent. Rate : 070 BPM Atrial Rate : 070 BPM P-R Int : 132 ms QRS Dur : 092 ms QT Int : 408 ms P-R-T Axes : 042 061 060 degrees QTc Int : 440 ms Normal sinus rhythm with sinus arrhythmia Normal ECG No previous ECGs available Referred By: Sohail Scott Electronically Signed By:CLARA MOSELEY
[2022-11-02] MEDS: Dextrose 5 % and 0.45 % NaCl 1,000 ML 125 ML IVCONT ×3 (02:45→18:30)
[2022-11-02 04:00] VITALS: BP 109/70; PULSE 73; RESP 18; TEMP 36.7; O2SAT 98
[2022-11-02 07:42] VITALS: BP 111/72; PULSE 71; RESP 18; TEMP 36.7; O2SAT 99
--- NOTE | 2022-11-02 08:39 | HO.PM.IMPN ---
Subjective Subjective Date of Service: 11/02/22 Interval History: f/u on depression, high sodium depressed but denies SI, not eating or drinking on his own Physical Exam Vital Signs: Vital Signs: Last Vital Signs Temp 98.0 F 11/02/22 07:42 Pulse 71 11/02/22 07:42 Resp 18 11/02/22 07:42 BP 111/72 11/02/22 07:42 Pulse Ox 99 11/02/22 07:42 O2 Del Method Room Air 11/02/22 07:42 BMI result Body Mass Index 22.4 Const: Other: General: AO X 3, no acute distress Resp: CTA bilateral CVS: S1,S2,RRR GI: +BS, NT, no distention Skin: No rash Neuro: motor grossly intact Psych: flat , no SI Objective Data Active Medications Acetaminophen (Acetaminophen 325 Mg Tablet) 650 mg PO Q6H PRN PRN Reason: Pain, Mild (Pain Scale 1-3) Enoxaparin Sodium (Enoxaparin Sodium 40 Mg/0.4 Ml Syringe) 40 mg SUBCUT Q24H [facility] Last Admin: 11/01/22 22:48 Dose: 40 mg Documented By: [place] Dextrose/Sodium Chloride (D51/2ns) 1,000 mls @ 125 mls/hr IVCONT .Q8H [facility] Last Admin: 11/02/22 02:45 Dose: 125 mls/hr Documented By: TIFFANIE Ondansetron HCl (Ondansetron Hcl 4 Mg/2 Ml Vial) 4 mg IVPUSH Q8H PRN PRN Reason: Nausea and Vomiting Sodium Chloride (0.9 % Sodium Chloride Flush 3 Ml Syringe) 3 ml IVFLUSH QSHIFT [facility] Last Admin: 11/02/22 07:11 Dose: Not Given Documented By: JUSTIN Non-Admin Reason: IV Running Labs 11/01/22 05:41 11/01/22 05:41 Assessment and Plan (1) Depression: Status: Acute (2) Acute hypernatremia: Status: Acute Plan 37-year-old male with pertinent history of cocaine use disorder who presents from sober home on a Section 12 for not eating and drinking #Major depressive disorder with complete apathy. At this point, he has no acute medical issues and should be considered for Psych admission #. Acute hypernatremia due to free water deficit, resolved with IVF. Is recommended to drink plenty of fluid to avoid recurrence #. Relative polycythemia in the setting of intravascular volume depletion, resolved #. Cocaine use disorder. Last used in April 2022. UDS negative DVT prophylaxis: Lovenox Full code Regular diet need for inpatient: hypernatremia, depression SI at risk for self harm Time Spent With Patient Time: Total time managing care of this patient today ____ minutes. Quality Stroke Does the patient have a stroke diagnosis?: No VTE Prior VTE?: No VTE Risk Level:: Medical - moderate - high VTE Device Contraindication: Treatment Not Indicated VTE Drug Contraindication: N/A - Med Ordered
[2022-11-02 09:32] LABS: Anion Gap 10 (12-20); Blood Urea Nitrogen 24 mg/dL (9-16); Calcium 9.1 mg/dL (8.4-10.2); Carbon Dioxide 28 mmol/L (22-29); Chloride 110 mmol/L (96-108); Creatinine Clr Calc Pharmacy 142.5; Estimated Glomerular Filt Rate > 60; Glucose Random 136 mg/dL (60-115); Potassium 3.3 mmol/L (3.3-5.1); Sodium 145 mmol/L (135-145)
[2022-11-02 11:25] VITALS: BP 106/62; PULSE 69; RESP 20; TEMP 36.7; O2SAT 99
--- NOTE | 2022-11-02 11:28 | PM.PSYCN ---
History of Present Illness Date of Service: 11/02/2022 Chief Complaint: Electrolyte imbalance Requesting physician: Sohail Scott Discussed with referring provider: Yes Sources of Information: patient interviewed, chart reviewed and crisis/core team assessment reviewed HPI Narrative: Interim Hx: pt continues to decline oral intake. He had IV fluids but has declined to eat on his own. Pt presents as mostly mute with minimal spontaneous speech or verbalization. He received ativan 2mg - with minimal improvement last evening but will try again. Pt seen in bed, he had eyes open and staring ceiling but close them when this administrative underwriter asked questions. Review of Systems Review of Systems Yes all other systems are reviewed and are negative Constitutional: Reports anorexia and Reports lethargy Cardiovascular: Reports no additional cardiovascular complaints Respiratory: Reports no additional respiratory complaints Gastrointestinal: Reports no additional gastrointestinal complaints Reports behavioral changes Psychiatric: Reports behavioral changes, Reports change in appetite, Reports depression and Reports anhedonia [facility] Medical History Cocaine use disorder Diagnostics Vital Signs (24Hr): Vital Signs - 24 hr 11/01/22 15:25 11/01/22 19:13 11/01/22 23:27 Temperature 98.1 F 97.8 F 98.0 F Pulse Rate 76 85 75 Respiratory Rate 16 18 18 Blood Pressure 108/68 114/72 Pulse Oximetry 96 99 97 Oxygen Delivery Method Room Air Room Air Room Air 11/02/22 04:00 11/02/22 07:42 11/02/22 11:25 Temperature 98.0 F 98.0 F 98.1 F Pulse Rate 73 71 69 Respiratory Rate 18 18 20 Blood Pressure 109/70 111/72 106/62 Pulse Oximetry 98 99 99 Oxygen Delivery Method Room Air Room Air Room Air BMI result Body Mass Index 22.4 Labs 11/01/22 05:41 11/02/22 09:04 Labs: Laboratory Results - last 48 hr 10/31/22 10/31/22 10/31/22 14:57 15:28 17:13 WBC 10.9 H RBC 7.09 H Hgb 19.7 H Hct 59.2 H MCV 83.5 MCH 27.8 MCHC 33.3 RDW 11.3 Plt Count 276 MPV 11.0 Immature Gran % (Auto) 0.6 H Neut % (Auto) 72.6 Lymph % (Auto) 18.8 L [place] % (Auto) 7.1 Eos % (Auto) 0.4 Baso % (Auto) 0.5 Lymph # (Auto) 2.1 [place] # (Auto) 0.8 Eos # (Auto) 0.0 Baso # (Auto) 0.1 Abs Immat Gran (auto) 0.06 H Absolute Neuts (auto) 7.9 Absolute Nucleated RBC 0.000 Nucleated RBC % (auto) 0.0 Sodium Potassium Chloride Carbon Dioxide Anion Gap BUN Creatinine Estim Creat Clear Calc Estimated GFR Random Glucose Calcium Total Bilirubin AST ALT Alkaline Phosphatase Total Protein Albumin TSH Salicylates Urine Opiates Screen Not Detected Urine Fentanyl Screen Not Detected Acetaminophen Ur Barbiturates Screen Not Detected Ur Phencyclidine Scrn Not Detected Ur Amphetamines Screen Not Detected U Benzodiazepines Scrn Not Detected Urine Cocaine Screen Not Detected U Marijuana (THC) Screen Not Detected Ethyl Alcohol COVID-19 ([facility]) Negative COVID-19 Clin Com See Note 10/31/22 10/31/22 11/01/22 17:13 17:13 05:41 WBC 8.4 RBC 5.51 D Hgb 15.7 D Hct 46.4 D MCV 84.2 MCH 28.5 MCHC 33.8 RDW 11.2 Plt Count 197 D MPV 11.1 Immature Gran % (Auto) 0.2 Neut % (Auto) 62.8 Lymph % (Auto) 28.0 [place] % (Auto) 7.1 Eos % (Auto) 1.4 Baso % (Auto) 0.5 Lymph # (Auto) 2.4 [place] # (Auto) 0.6 Eos # (Auto) 0.1 Baso # (Auto) 0.0 Abs Immat Gran (auto) 0.02 Absolute Neuts (auto) 5.3 Absolute Nucleated RBC 0.000 Nucleated RBC % (auto) 0.0 Sodium 153 H Potassium 3.6 Chloride 111 H Carbon Dioxide 25 Anion Gap 21 H BUN 44 H Creatinine 1.25 Estim Creat Clear Calc 86.4 Estimated GFR > 60 Random Glucose 129 H Calcium 10.5 H Total Bilirubin 1.3 H AST 22 ALT 19 Alkaline Phosphatase 84 Total Protein 8.9 H Albumin 4.8 TSH 0.79 Salicylates < 5.0 L Urine Opiates Screen Urine Fentanyl Screen Acetaminophen < 17 Ur Barbiturates Screen Ur Phencyclidine Scrn Ur Amphetamines Screen U Benzodiazepines Scrn Urine Cocaine Screen U Marijuana (THC) Screen Ethyl Alcohol < 10 COVID-19 ([facility]) COVID-19 [employer] 11/01/22 11/02/22 05:41 09:04 WBC RBC Hgb Hct MCV MCH MCHC RDW Plt Count MPV Immature Gran % (Auto) Neut % (Auto) Lymph % (Auto) [place] % (Auto) Eos % (Auto) Baso % (Auto) Lymph # (Auto) [place] # (Auto) Eos # (Auto) Baso # (Auto) Abs Immat Gran (auto) Absolute Neuts (auto) Absolute Nucleated RBC Nucleated RBC % (auto) Sodium 146 H 145 Potassium 3.3 3.3 Chloride 110 H 110 H Carbon Dioxide 27 28 Anion Gap 12 10 L BUN 31 H 24 H Creatinine 0.86 0.76 Estim Creat Clear Calc 125.9 142.5 Estimated GFR > 60 > 60 Random Glucose 145 H 136 H Calcium 9.1 D 9.1 Total Bilirubin AST ALT Alkaline Phosphatase Total Protein Albumin TSH Salicylates Urine Opiates Screen Urine Fentanyl Screen Acetaminophen Ur Barbiturates Screen Ur Phencyclidine Scrn Ur Amphetamines Screen U Benzodiazepines Scrn Urine Cocaine Screen U Marijuana (THC) Screen Ethyl Alcohol COVID-19 ([facility]) COVID-19 Clin Com Mental Status Exam Mental Status Exam Narrative: Appearance: wearing hospital gown, in NAD Behavior: minimally engaging Speech: minimally spontaneous Psychomotor: retardation noted TP: single word TC: minimally verbal Mood: did not respond Affect: constricted VH/AH: unclear if internally preoccupied Delusions: unable to assess Insight/judgment: impaired x2 Memory/cog: alert, not able to assess orientation as pt does not respond Medications Medications Current Medications Acetaminophen (Acetaminophen 325 Mg Tablet) 650 mg PO Q6H PRN PRN Reason: Pain, Mild (Pain Scale 1-3) Enoxaparin Sodium (Enoxaparin Sodium 40 Mg/0.4 Ml Syringe) 40 mg SUBCUT Q24H [facility] Last Admin: 11/01/22 22:48 Dose: 40 mg Dextrose/Sodium Chloride (D51/2ns) 1,000 mls @ 125 mls/hr IVCONT .Q8H [facility] Last Admin: 11/02/22 11:07 Dose: 125 mls/hr Lorazepam (Lorazepam 2 Mg/Ml Vial) 2 mg IVPUSH TID [facility] Ondansetron HCl (Ondansetron Hcl 4 Mg/2 Ml Vial) 4 mg IVPUSH Q8H PRN PRN Reason: Nausea and Vomiting Sodium Chloride (0.9 % Sodium Chloride Flush 3 Ml Syringe) 3 ml IVFLUSH QSHIFT [facility] Last Admin: 11/02/22 07:11 Dose: Not Given Allergies Allergies Allergy/AdvReac Type Severity Reaction Status Date / Time No Known Allergies Allergy Verified 10/31/22 14:47 Assessment & Plan Assessment & Plan (1) Catatonia: Status: Acute Code(s): F06.1 - Catatonic disorder due to known physiological condition (2) Cocaine use disorder, mild, in early remission: Status: Acute Code(s): F14.11 - Cocaine abuse, in remission (3) Mood disorder: Status: Acute Code(s): F39 - Unspecified mood [affective] disorder Plan 37-year-old male with pertinent history of cocaine use disorder who presents from sober home on a [address] for not eating and drinking 11/01 pt continues to present as gravely disable due to underlying psychiatric symptoms including catatonia, possible underlying psychosis, presentation is beyond mainly depressive disorder. Pt to be transferred to psych unit- will initiate ativan 2mg IV TID. will try to contact family member or emergency contact. Total time managing care of this patient today __20__ minutes.
[2022-11-02] MEDS: LORazepam 2 MG/ML VIAL IVPUSH ×2 (12:06→15:38)
[2022-11-02 15:31] VITALS: BP 110/73; PULSE 74; RESP 16; TEMP 36.1; O2SAT 98
[2022-11-02 19:26] VITALS: BP 114/69; PULSE 70; RESP 18; TEMP 36.4; O2SAT 98
[2022-11-02] MEDS: Enoxaparin Sodium 40 MG/0.4 ML SYRINGE SUBCUT (22:07)
[2022-11-02 23:48] VITALS: BP 99/59; PULSE 70; RESP 18; TEMP 36.4; O2SAT 98
[2022-11-03 04:00] VITALS: BP 120/61; PULSE 65; RESP 18; TEMP 36.6; O2SAT 98
[2022-11-03 07:25] VITALS: BP 106/71; PULSE 70; RESP 16; TEMP 36.7; O2SAT 99
[2022-11-03] MEDS: 0.9 % Sodium Chloride Flush 3 ML SYRINGE IVFLUSH (09:18)
[2022-11-03 11:39] VITALS: BP 108/64; PULSE 72; RESP 16; TEMP 36.4; O2SAT 96
== END 2022-11-03 14:21 | DRG 426 ==
LOC: HO.ED 22:04 → HO.EDOVER 22:26 → HO.S3 22:42
PROVIDERS: Admitting Provider Student in an Organized Health Care Education/Training Program; Emergency Provider Emergency Medicine Emergency Medical Services; Visit Provider Internal Medicine
DX: E87.0 Hyperosmolality and hypernatremia (principal); N17.9 Acute kidney failure, unspecified; F06.1 Catatonic disorder due to known physiological condition; D75.1 Secondary polycythemia; E86.0 Dehydration; F11.11 Opioid abuse, in remission; R63.0 Anorexia; Z68.22 Body mass index [BMI] 22.0-22.9, adult; F14.11 Cocaine abuse, in remission; F32.9 Major depressive disorder, single episode, unspecified; Z20.822 Contact with and (suspected) exposure to COVID-19; Z79.899 Other long term (current) drug therapy
CPT/HCPCS: 36415; 70450; 80048; 80053; 80143; 80179; 80307; 84443; 85025; 87635; 93005; 99285; J1650; J2060; S9485

== ENCOUNTER 2022-11-03 14:55 | Inpatient (IN) | payer OTHER, SELFPAY ==
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
--- NOTE | 2022-11-03 15:49 | PC.ADMIT ---
Augustus is a 37-year-old male admitted from S3 to M3 on a 12b for unspecified psychotic disorder. Pt has a hx of substance use but tox screen was negative. Pt denied SI/HI. Pt was admitted to medical floor after not eating or drinking for several days at his TSS program. Pt was treated for acute hypernatremia and relative polycythemia. Pt received Lovenox 40mg for DVT prophylaxis and Ativan 2mg IVPUSH x2 yesterday for catatonia. Upon arriving to the unit, pt was alert, able to ambulate, and he independently changed his clothes during the skin check. Pt was responsive and maintained eye contact but answered in short responses. Pt refused to participate in admission assessment.
--- NOTE | 2022-11-03 16:31 | PC.NURSE ---
Pt is able to ambulate independently but has remained in bed throughout most of the shift. Per Dr. Fraga, continue with Lovenox order and monitor pt's mobility over the next 24h.
--- NOTE | 2022-11-03 17:06 | PC.NURSE ---
Pt refused Ativan 2mg PO and stated I'm all set, I don't like taking meds.
[2022-11-03 17:28] LABS: Estimated Glomerular Filt Rate > 60
[2022-11-03 18:00] VITALS: BP 116/70; PULSE 74; RESP 18; TEMP 36.5; O2SAT 95
[2022-11-04 06:00] VITALS: BP 116/70; PULSE 60; RESP 18; TEMP 36.6; O2SAT 99
--- NOTE | 2022-11-04 17:03 | PC.NURSE ---
Addendum entered by Celine Patel RN 11/04/22 17:14: Correction: Dr. Fraga was not notified but was in to see PT today so is aware of current condition. Has not taken anything PO since admission to this floor. Original Note: PT refused 5pm Ativan. Spoke very little with this consumer loan underwriter, only responded to questions with one word answers. When asked about Ativan pt stated NO . PT appears visibly dehydrated, lips and tongue appear dry (Dr. Fraga notified via text). Encouraged PO fluids, pt refused. Educated on rationale for Ativan and need to take PO fluids.
--- NOTE | 2022-11-04 17:08 | P.PNPSI_ITS ---
Subjective Subjective Date of Service: 11/04/22 Reason For Visit: unsp phych disorder Interim History: lying in bed. responsive, adequately verbal. no longer grossly catatonic. states he does not wish to take medications. MD encouraged him to take meds and explained why, pt appeared unmoved. reported his mood is not too bad, just tired, today. per staff, denies psych Sx. refusing meds. no PO intake since admission. Mental Status Exam Mental Status Exam Narrative: found supine in bed, apparently awake. more responsive than yesterday, still terse. general PMR, hypomotoric. cooperative. thoughts linear and logical. affect masked. mood not too0 bad, just tired, no SI/HI/AVH expressed. Diagnostics Vital Signs (24Hr): Vital Signs - 24 hr 11/03/22 18:00 11/04/22 06:00 Temperature 97.7 F 97.8 F Pulse Rate 74 60 Respiratory Rate 18 18 Blood Pressure 116/70 116/70 Pulse Oximetry 95 99 Oxygen Delivery Method Room Air Room Air Labs 11/03/22 15:48 Labs: Laboratory Results - last 48 hr 11/03/22 15:48 Creatinine 0.73 Estim Creat Clear Calc TNP Estimated GFR > 60 Medications Medications Current Medications Acetaminophen (Acetaminophen 325 Mg Tablet) 650 mg PO Q6H PRN PRN Reason: Headache/Pain Mild Scale (1-3) Al Hydroxide/Mg Hydroxide (Magnesium Hydrox/Alum Hydrox 30 Ml Oral.Susp) 30 ml PO Q6H PRN PRN Reason: Heartburn/Nausea Enoxaparin Sodium (Enoxaparin Sodium 40 Mg/0.4 Ml Syringe) 40 mg SUBCUT Q24H [facility] Last Admin: 11/04/22 05:21 Dose: Not Given Hydroxyzine HCl (Hydroxyzine Hcl 25 Mg Tablet) 25 mg PO Q6H PRN PRN Reason: Anxiety Lorazepam (Lorazepam 1 Mg Tablet) 2 mg PO QID [facility] Last Admin: 11/04/22 17:00 Dose: Not Given Magnesium Hydroxide (Milk Of Magnesia 30 Ml Oral.Susp) 30 ml PO DAILY PRN PRN Reason: Constipation Olanzapine (Olanzapine 2.5 Mg Tablet) 2.5 mg PO BID [facility] Last Admin: 11/04/22 09:17 Dose: Not Given Trazodone HCl (Trazodone Hcl 50 Mg Tablet) 50 mg PO BEDTIME MRX1 PRN PRN Reason: Insomnia Allergies Allergies Allergy/AdvReac Type Severity Reaction Status Date / Time No Known Allergies Allergy Verified 10/31/22 14:47 Assessment & Plan Assessment & Plan (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 11/04: pt refusing meds and not taking anything PO. nevertheless appears slightly improved from yesterday, more verbal with less latency of response. advised to take meds and fluids. Reason for continued inpatient stay Substantial Risk for: harm to self, inability to function, rapid decompensation and med/psych decompensation Time Spent With Patient Time: Total time managing care of this patient today ____ minutes.
[2022-11-04 20:00] VITALS: BP 118/68; PULSE 63; RESP 16; TEMP 36.7; O2SAT 97
[2022-11-05 08:47] VITALS: BP 112/70; PULSE 88; RESP 16; TEMP 36.8; O2SAT 94
[2022-11-05 13:33] LABS: Anion Gap 12 (12-20); Blood Urea Nitrogen 23 mg/dL (9-16); Calcium 9.1 mg/dL (8.4-10.2); Carbon Dioxide 26 mmol/L (22-29); Chloride 108 mmol/L (96-108); Estimated Glomerular Filt Rate > 60; Glucose Random 97 mg/dL (60-115); Potassium 4.1 mmol/L (3.3-5.1); Sodium 142 mmol/L (135-145)
--- NOTE | 2022-11-05 14:58 | HO.PSYCHPN ---
Subjective Subjective Date of Service: 11/05/22 Reason For Visit: unsp phych disorder Interim History: no change in presentation. not much interested in interacting with MD. i'm OK. per staff, ate and drank overnight. milk juice snacks after 1130. not taking meds. racing thoughts. Mental Status Exam Mental Status Exam Narrative: found supine in bed, apparently awake. more responsive than 11/03, still terse. general PMR, hypomotoric. cooperative. thoughts linear and logical. affect masked. mood I'm OK, no SI/HI/AVH expressed. Diagnostics Vital Signs (24Hr): Vital Signs - 24 hr 11/04/22 20:00 11/05/22 08:47 Temperature 98.1 F 98.2 F Pulse Rate 63 88 Respiratory Rate 16 16 Blood Pressure 118/68 112/70 Pulse Oximetry 97 94 Oxygen Delivery Method Room Air Room Air Labs 11/05/22 12:58 Labs: Laboratory Results - last 48 hr 11/03/22 11/05/22 15:48 12:58 Sodium 142 Potassium 4.1 D Chloride 108 Carbon Dioxide 26 Anion Gap 12 BUN 23 H Creatinine 0.73 0.83 Estim Creat Clear Calc TNP TNP Estimated GFR > 60 > 60 Random Glucose 97 Calcium 9.1 Medications Medications Current Medications Acetaminophen (Acetaminophen 325 Mg Tablet) 650 mg PO Q6H PRN PRN Reason: Headache/Pain Mild Scale (1-3) Al Hydroxide/Mg Hydroxide (Magnesium Hydrox/Alum Hydrox 30 Ml Oral.Susp) 30 ml PO Q6H PRN PRN Reason: Heartburn/Nausea Enoxaparin Sodium (Enoxaparin Sodium 40 Mg/0.4 Ml Syringe) 40 mg SUBCUT Q24H [facility] Last Admin: 11/04/22 23:23 Dose: Not Given Hydroxyzine HCl (Hydroxyzine Hcl 25 Mg Tablet) 25 mg PO Q6H PRN PRN Reason: Anxiety Lorazepam (Lorazepam 1 Mg Tablet) 2 mg PO QID [facility] Last Admin: 11/05/22 08:42 Dose: Not Given Magnesium Hydroxide (Milk Of Magnesia 30 Ml Oral.Susp) 30 ml PO DAILY PRN PRN Reason: Constipation Olanzapine (Olanzapine 2.5 Mg Tablet) 2.5 mg PO BID [facility] Last Admin: 11/05/22 08:42 Dose: Not Given Trazodone HCl (Trazodone Hcl 50 Mg Tablet) 50 mg PO BEDTIME MRX1 PRN PRN Reason: Insomnia Allergies Allergies Allergy/AdvReac Type Severity Reaction Status Date / Time No Known Allergies Allergy Verified 10/31/22 14:47 Assessment & Plan Assessment & Plan (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 11/04: pt refusing meds and not taking anything PO. nevertheless appears slightly improved from yesterday, more verbal with less latency of response. advised to take meds and fluids. 11/05: ate and drank some last night. refusing meds. no longer grossly catatonic. continue current mgmt. Reason for continued inpatient stay Substantial Risk for: inability to function and rapid decompensation Time Spent With Patient Time: Total time managing care of this patient today ____ minutes.
[2022-11-05 18:00] VITALS: BP 95/64; PULSE 57; RESP 18; TEMP 36.9; O2SAT 97
--- NOTE | 2022-11-06 06:34 | PC.NURSE ---
Patient cooperative with vitals, continues to refused all bedtime meds. Fluids encouraged but declined. On bed rest the whole night.
[2022-11-06 09:43] VITALS: BP 100/57; PULSE 53; RESP 16; TEMP 36.1; O2SAT 98
--- NOTE | 2022-11-06 15:04 | PC.NURSE ---
Patient refused AM and 1300 medication. Reports he is doing fine . States he has voided today, unable to recall last BM. Isolative and withdrawn to room. fused breakfast and lunch. Food and fluid encouraged.
--- NOTE | 2022-11-06 15:13 | P.PNPSI_ITS ---
Subjective Subjective Date of Service: 11/06/22 Reason For Visit: unsp phych disorder Subjective Notes: Bowers Warning Interim History: pt found lying in bed, supine, responsive. informed if he were unable to maintain daily PO intake we would be filing for commitment. bowers warning provided. pt voiced his understanding. per staff, no intake ni the past 24H. refusing meds, has not voided. internally preoccupied, thought-blocking. appeared to sleep. Mental Status Exam Mental Status Exam Narrative: found supine in bed, apparently awake. more responsive than 11/03, still terse. general PMR, hypomotoric. cooperative. thoughts linear and logical. affect m asked. mood I'm OK, no SI/HI/AVH expressed. Diagnostics Vital Signs (24Hr): Vital Signs - 24 hr 11/05/22 18:00 11/06/22 09:43 Temperature 98.5 F 96.9 F Pulse Rate 57 53 Respiratory Rate 18 16 Blood Pressure 95/64 100/57 L Pulse Oximetry 97 98 Oxygen Delivery Method Room Air Room Air Labs 11/05/22 12:58 Labs: Laboratory Results - last 48 hr 11/05/22 12:58 Sodium 142 Potassium 4.1 D Chloride 108 Carbon Dioxide 26 Anion Gap 12 BUN 23 H Creatinine 0.83 Estim Creat Clear Calc TNP Estimated GFR > 60 Random Glucose 97 Calcium 9.1 Medications Medications Current Medications Acetaminophen (Acetaminophen 325 Mg Tablet) 650 mg PO Q6H PRN PRN Reason: Headache/Pain Mild Scale (1-3) Al Hydroxide/Mg Hydroxide (Magnesium Hydrox/Alum Hydrox 30 Ml Oral.Susp) 30 ml PO Q6H PRN PRN Reason: Heartburn/Nausea Enoxaparin Sodium (Enoxaparin Sodium 40 Mg/0.4 Ml Syringe) 40 mg SUBCUT Q24H [facility] Last Admin: 11/05/22 22:59 Dose: Not Given Hydroxyzine HCl (Hydroxyzine Hcl 25 Mg Tablet) 25 mg PO Q6H PRN PRN Reason: Anxiety Lorazepam (Lorazepam 1 Mg Tablet) 2 mg PO QID [facility] Last Admin: 11/06/22 14:29 Dose: Not Given Magnesium Hydroxide (Milk Of Magnesia 30 Ml Oral.Susp) 30 ml PO DAILY PRN PRN Reason: Constipation Olanzapine (Olanzapine 2.5 Mg Tablet) 2.5 mg PO BID [facility] Last Admin: 11/06/22 10:06 Dose: Not Given Trazodone HCl (Trazodone Hcl 50 Mg Tablet) 50 mg PO BEDTIME MRX1 PRN PRN Reason: Insomnia Allergies Allergies Allergy/AdvReac Type Severity Reaction Status Date / Time No Known Allergies Allergy Verified 10/31/22 14:47 Assessment & Plan Assessment & Plan (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 11/04: pt refusing meds and not taking anything PO. nevertheless appears slightly improved from yesterday, more verbal with less latency of response. advised to take meds and fluids. 11/05: ate and drank some last night. refusing meds. no longer grossly catatonic. continue current mgmt. 11/06: no PO intake in past 24H. refusing meds. bowers warning, 3-day up weds. Reason for continued inpatient stay Substantial Risk for: harm to self and inability to function Time Spent With Patient Time: Total time managing care of this patient today __25__ minutes.
[2022-11-06 20:30] VITALS: BP 101/56; PULSE 68; RESP 16; TEMP 36.7; O2SAT 96
--- NOTE | 2022-11-07 00:16 | PC.NURSE ---
Augustus up to kitchen at 2300, filled pitcher with ice water and brought back to room.
[2022-11-07 08:24] VITALS: BP 97/61; PULSE 60; RESP 16; TEMP 36.5; O2SAT 96
--- NOTE | 2022-11-07 15:27 | HO.PSYCHPN ---
Subjective Subjective Date of Service: 11/07/22 Reason For Visit: unsp phych disorder Interim History: calm, cooperative. PMR, but responds. states he is not hungry, so he is not eating. reports his mood is not too bad. on being asked if he has a mental illness, he responds, i don't know. denies any safety concerns, despite his behavior. per staff, denies psych Sx. sleeping. refusing food, meds in am. 11 pm last night had some water. Mental Status Exam Mental Status Exam Narrative: found supine in bed, apparently awake. more responsive than 11/03, still terse. general PMR, hypomotoric. cooperative. thoughts linear and logical. affect masked. mood I'm OK, no SI/HI/AVH. Diagnostics Vital Signs (24Hr): Vital Signs - 24 hr 11/06/22 20:30 11/07/22 08:24 Temperature 98.1 F 97.7 F Pulse Rate 68 60 Respiratory Rate 16 16 Blood Pressure 101/56 L 97/61 Pulse Oximetry 96 96 Oxygen Delivery Method Room Air Room Air Labs 11/05/22 12:58 Medications Medications Current Medications Acetaminophen (Acetaminophen 325 Mg Tablet) 650 mg PO Q6H PRN PRN Reason: Headache/Pain Mild Scale (1-3) Al Hydroxide/Mg Hydroxide (Magnesium Hydrox/Alum Hydrox 30 Ml Oral.Susp) 30 ml PO Q6H PRN PRN Reason: Heartburn/Nausea Hydroxyzine HCl (Hydroxyzine Hcl 25 Mg Tablet) 25 mg PO Q6H PRN PRN Reason: Anxiety Lorazepam (Lorazepam 1 Mg Tablet) 2 mg PO QID [facility] Last Admin: 11/07/22 13:15 Dose: Not Given Magnesium Hydroxide (Milk Of Magnesia 30 Ml Oral.Susp) 30 ml PO DAILY PRN PRN Reason: Constipation Olanzapine (Olanzapine 2.5 Mg Tablet) 2.5 mg PO BID [facility] Last Admin: 11/07/22 08:25 Dose: Not Given Trazodone HCl (Trazodone Hcl 50 Mg Tablet) 50 mg PO BEDTIME MRX1 PRN PRN Reason: Insomnia Allergies Allergies Allergy/AdvReac Type Severity Reaction Status Date / Time No Known Allergies Allergy Verified 10/31/22 14:47 Assessment & Plan Assessment & Plan (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 11/04: pt refusing meds and not taking anything PO. nevertheless appears slightly improved from yesterday, more verbal with less latency of response. advised to take meds and fluids. 11/05: ate and drank some last night. refusing meds. no longer grossly catatonic. continue current mgmt. 11/06: no PO intake in past 24H. refusing meds. parnell warning, 3-day up . 11/07: no food, had some water last night. recheck BMP. completed commitment paperwork. refusing meds. Reason for continued inpatient stay Substantial Risk for: harm to self, inability to function and rapid decompensation Time Spent With Patient Time: Total time managing care of this patient today _45___ minutes.
[2022-11-07 18:00] VITALS: BP 112/65; PULSE 66; RESP 16; TEMP 36.3; O2SAT 95
[2022-11-08 08:30] VITALS: BP 106/65; PULSE 55; RESP 18; TEMP 36.4; O2SAT 98
--- NOTE | 2022-11-08 15:44 | P.PNPSI_ITS ---
Subjective Subjective Date of Service: 11/08/22 Reason For Visit: unsp phych disorder Interim History: no change in presentation. PMR, flat, denies Sx. per staff, 12B up today. isolative, withdrawn. no voiding or BMs. yesterday morning's bfast tray was empty, yet pt denies having eaten anything. refusing meds. Mental Status Exam Mental Status Exam Narrative: found supine in bed, apparently awake. more responsive than 11/03, still terse. general PMR, hypomotoric. cooperative. thoughts linear and logical. affect masked. mood fine, no SI/HI/AVH. Diagnostics Vital Signs (24Hr): Vital Signs - 24 hr 11/07/22 18:00 11/08/22 08:30 Temperature 97.4 F 97.6 F Pulse Rate 66 55 Respiratory Rate 16 18 Blood Pressure 112/65 106/65 Pulse Oximetry 95 98 Oxygen Delivery Method Room Air Room Air Labs 11/05/22 12:58 Medications Medications Current Medications Acetaminophen (Acetaminophen 325 Mg Tablet) 650 mg PO Q6H PRN PRN Reason: Headache/Pain Mild Scale (1-3) Al Hydroxide/Mg Hydroxide (Magnesium Hydrox/Alum Hydrox 30 Ml Oral.Susp) 30 ml PO Q6H PRN PRN Reason: Heartburn/Nausea Hydroxyzine HCl (Hydroxyzine Hcl 25 Mg Tablet) 25 mg PO Q6H PRN PRN Reason: Anxiety Lorazepam (Lorazepam 1 Mg Tablet) 2 mg PO QID [facility] Last Admin: 11/08/22 14:49 Dose: Not Given Magnesium Hydroxide (Milk Of Magnesia 30 Ml Oral.Susp) 30 ml PO DAILY PRN PRN Reason: Constipation Olanzapine (Olanzapine 2.5 Mg Tablet) 2.5 mg PO BID [facility] Last Admin: 11/08/22 09:08 Dose: Not Given Trazodone HCl (Trazodone Hcl 50 Mg Tablet) 50 mg PO BEDTIME MRX1 PRN PRN Reason: Insomnia Allergies Allergies Allergy/AdvReac Type Severity Reaction Status Date / Time No Known Allergies Allergy Verified 10/31/22 14:47 Assessment & Plan Assessment & Plan (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 11/04: pt refusing meds and not taking anything PO. nevertheless appears slightly improved from yesterday, more verbal with less latency of response. advised to take meds and fluids. 11/05: ate and drank some last night. refusing meds. no longer grossly catatonic. continue current mgmt. 11/06: no PO intake in past 24H. refusing meds. parnell warning, 3-day up . 11/07: no food, had some water last night. recheck BMP. completed commitment paperwork. refusing meds. 11/08: denies eating or drinking but yesterday's breakfast tray was empty on return. commitment filed. refusing meds. Reason for continued inpatient stay Substantial Risk for: harm to self, inability to function and rapid decomp ensation Time Spent With Patient Time: Total time managing care of this patient today _25___ minutes.
[2022-11-08 15:49] LABS: Anion Gap 11 (12-20); Blood Urea Nitrogen 15 mg/dL (9-16); Calcium 9.7 mg/dL (8.4-10.2); Carbon Dioxide 28 mmol/L (22-29); Chloride 105 mmol/L (96-108); Estimated Glomerular Filt Rate > 60; Glucose Random 95 mg/dL (60-115); Potassium 4.1 mmol/L (3.3-5.1); Sodium 140 mmol/L (135-145)
[2022-11-08 22:20] VITALS: BP 119/75; PULSE 57; TEMP 36.5; O2SAT 96
[2022-11-09 09:26] VITALS: BP 141/94; PULSE 103; RESP 16; TEMP 36.4; O2SAT 95
--- NOTE | 2022-11-09 16:08 | HO.PSYCHPN ---
Subjective Subjective Date of Service: 11/09/22 Reason For Visit: unsp phych disorder Interim History: reports mood not too bad. states he has not eaten because still no appetite. same apple juice containers unopened on bedside table for 3 days. refusing meds. per staff, not eating, refusing meds, not attending to ADLs. Mental Status Exam Mental Status Exam Narrative: found supine in bed, apparently awake. more responsive than 11/03, still terse. general PMR, hypomotoric. cooperative. thoughts linear and logical. affect masked. mood not too bad, no SI/HI/AVH expressed. Diagnostics Vital Signs (24Hr): Vital Signs - 24 hr 11/08/22 22:20 11/09/22 09:26 Temperature 97.7 F 97.6 F Pulse Rate 57 103 H Respiratory Rate 16 Blood Pressure 119/75 141/94 H Pulse Oximetry 96 95 Oxygen Delivery Method Room Air Room Air Labs 11/08/22 15:07 Labs: Laboratory Results - last 48 hr 11/08/22 15:07 Sodium 140 Potassium 4.1 Chloride 105 Carbon Dioxide 28 Anion Gap 11 L BUN 15 Creatinine 0.72 Estim Creat Clear Calc TNP Estimated GFR > 60 Random Glucose 95 Calcium 9.7 D Medications Medications Current Medications Acetaminophen (Acetaminophen 325 Mg Tablet) 650 mg PO Q6H PRN PRN Reason: Headache/Pain Mild Scale (1-3) Al Hydroxide/Mg Hydroxide (Magnesium Hydrox/Alum Hydrox 30 Ml Oral.Susp) 30 ml PO Q6H PRN PRN Reason: Heartburn/Nausea Hydroxyzine HCl (Hydroxyzine Hcl 25 Mg Tablet) 25 mg PO Q6H PRN PRN Reason: Anxiety Magnesium Hydroxide (Milk Of Magnesia 30 Ml Oral.Susp) 30 ml PO DAILY PRN PRN Reason: Constipation Olanzapine (Olanzapine 2.5 Mg Tablet) 2.5 mg PO BID [facility] Last Admin: 11/09/22 08:55 Dose: Not Given Trazodone HCl (Trazodone Hcl 50 Mg Tablet) 50 mg PO BEDTIME MRX1 PRN PRN Reason: Insomnia Allergies Allergies Allergy/AdvReac Type Severity Reaction Status Date / Time No Known Allergies Allergy Verified 10/31/22 14:47 Assessment & Plan Assessment & Plan (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 11/04: pt refusing meds and not taking anything PO. nevertheless appears slightly improved from yesterday, more verbal with less latency of response. advised to take meds and fluids. 11/05: ate and drank some last night. refusing meds. no longer grossly catatonic. continue current mgmt. 11/06: no PO intake in past 24H. refusing meds. parnell warning, 3-day up . 11/07: no food, had some water last night. recheck BMP. completed commitment paperwork. refusing meds. 11/08: denies eating or drinking but yesterday's breakfast tray was empty on return. commitment filed. refusing meds. 11/09: continues without PO intake, not attending to ADLs. refusing meds. hearing scheduled for next . labs from yesterday not indicative of concerning dehydration. Reason for continued inpatient stay Substantial Risk for: harm to self, inability to function and rapid decompensation Time Spent With Patient Time: Total time managing care of this patient today ____ minutes.
[2022-11-09 20:15] VITALS: BP 117/74; PULSE 66; RESP 17; TEMP 36.7; O2SAT 95
[2022-11-10 09:42] VITALS: BP 100/65; PULSE 58; RESP 14; TEMP 36.9; O2SAT 97
--- NOTE | 2022-11-10 16:27 | HO.PSYCHPN ---
Subjective Subjective Date of Service: 11/10/22 Reason For Visit: unsp phych disorder Subjective Notes: Section 7 Interim History: Pt mostly in bed. He denies any concerns. He states he is waiting to be discharged but states he is aware attending has filed. He denies SI/HI. No insight as to how his behavior, mostly in bed, not interacting would be concerning for others or when he came to the hospital. Pt encouraged to get out of bed, to go to some groups or consider medication. Pt declines medication but does not explain rationale. Mental Status Exam Mental Status Exam Narrative: found supine in bed, apparently awake. more responsive than 11/03, still terse. general PMR, hypomotoric. cooperative. thoughts linear and logical. affect masked. mood not too bad, no SI/HI/AVH expressed. Diagnostics Vital Signs (24Hr): Vital Signs - 24 hr 11/09/22 20:15 11/10/22 09:42 Temperature 98.1 F 98.4 F Pulse Rate 66 58 Respiratory Rate 17 14 Blood Pressure 117/74 100/65 Pulse Oximetry 95 97 Oxygen Delivery Method Room Air Room Air Labs 11/08/22 15:07 Medications Medications Current Medications Acetaminophen (Acetaminophen 325 Mg Tablet) 650 mg PO Q6H PRN PRN Reason: Headache/Pain Mild Scale (1-3) Al Hydroxide/Mg Hydroxide (Magnesium Hydrox/Alum Hydrox 30 Ml Oral.Susp) 30 ml PO Q6H PRN PRN Reason: Heartburn/Nausea Hydroxyzine HCl (Hydroxyzine Hcl 25 Mg Tablet) 25 mg PO Q6H PRN PRN Reason: Anxiety Magnesium Hydroxide (Milk Of Magnesia 30 Ml Oral.Susp) 30 ml PO DAILY PRN PRN Reason: Constipation Olanzapine (Olanzapine 2.5 Mg Tablet) 2.5 mg PO BID [facility] Last Admin: 11/10/22 09:17 Dose: Not Given Trazodone HCl (Trazodone Hcl 50 Mg Tablet) 50 mg PO BEDTIME MRX1 PRN PRN Reason: Insomnia Allergies Allergies Allergy/AdvReac Type Severity Reaction Status Date / Time No Known Allergies Allergy Verified 10/31/22 14:47 Assessment & Plan Assessment & Plan (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 11/04: pt refusing meds and not taking anything PO. nevertheless appears slightly improved from yesterday, more verbal with less latency of response. advised to take meds and fluids. 11/05: ate and drank some last night. refusing meds. no longer grossly catatonic. continue current mgmt. 11/06: no PO intake in past 24H. refusing meds. parnell warning, 3-day up . 11/07: no food, had some water last night. recheck BMP. completed commitment paperwork. refusing meds. 11/08: denies eating or drinking but yesterday's breakfast tray was empty on return. commitment filed. refusing meds. 11/09: continues without PO intake, not attending to ADLs. refusing meds. hearing scheduled for next . labs from yesterday not indicative of concerning dehydration. 11/10 continue tx. more talkative, although guarded. No overt delusional content reported. denies SI/HI. Reason for continued inpatient stay Substantial Risk for: inability to function Time Spent With Patient Time: Total time managing care of this patient today ____ minutes.
[2022-11-10 20:00] VITALS: BP 118/63; PULSE 57; RESP 16; TEMP 36.7; O2SAT 95
[2022-11-11 06:00] VITALS: BP 110/63; PULSE 70; RESP 16; TEMP 36.7; O2SAT 96
--- NOTE | 2022-11-11 06:13 | PC.NURSE ---
Patient observed in the kitchen getting 2 puddings and a milk and he took them back to his room and ingested them.
--- NOTE | 2022-11-11 13:10 | PC.NURSE ---
Pt refused scheduled medications this morning. Cooperative with vital signs
--- NOTE | 2022-11-11 14:34 | HO.PSYCHPN ---
Subjective Subjective Date of Service: 11/11/22 Reason For Visit: unsp phych disorder Subjective Notes: Section 7 ( court 11/16/2022) Medical Problems Affecting Mental Status: No Interim History: met with patient. Discussed with Nursing. Chart reviewed. Overall very isolative. As per nursing patient may be eating snacks when nobody is around. 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 Very poor ADLs. Denies eating and drinking anything. Reports not liking medications and does not feel like he needs them. Denies feeling depressed suicidal or experiencing any psychotic symptoms. Medication Compliance: No Side effects from medications: No Attending Groups: No Review of Systems Acute medical concerns: No Review of Systems Review of Systems Yes Unobtainable due to mental status Mental Status Exam Mental Status Exam Narrative: Very poor self-care. found supine in bed, awake, responsive, terse. general PMR. cooperative. thoughts linear and logical. affect masked. mood not too bad, no SI/HI/AVH expressed. Insight and judgment appears limited Diagnostics Vital Signs (24Hr): Vital Signs - 24 hr 11/10/22 20:00 11/11/22 06:00 Temperature 98.1 F 98.1 F Pulse Rate 57 70 Respiratory Rate 16 16 Blood Pressure 118/63 110/63 Pulse Oximetry 95 96 Oxygen Delivery Method Room Air Room Air Labs 11/08/22 15:07 Medications Medications Current Medications Acetaminophen (Acetaminophen 325 Mg Tablet) 650 mg PO Q6H PRN PRN Reason: Headache/Pain Mild Scale (1-3) Al Hydroxide/Mg Hydroxide (Magnesium Hydrox/Alum Hydrox 30 Ml Oral.Susp) 30 ml PO Q6H PRN PRN Reason: Heartburn/Nausea Hydroxyzine HCl (Hydroxyzine Hcl 25 Mg Tablet) 25 mg PO Q6H PRN PRN Reason: Anxiety Magnesium Hydroxide (Milk Of Magnesia 30 Ml Oral.Susp) 30 ml PO DAILY PRN PRN Reason: Constipation Olanzapine (Olanzapine 2.5 Mg Tablet) 2.5 mg PO BID [facility] Last Admin: 11/11/22 09:24 Dose: Not Given Trazodone HCl (Trazodone Hcl 50 Mg Tablet) 50 mg PO BEDTIME MRX1 PRN PRN Reason: Insomnia Allergies Allergies Allergy/AdvReac Type Severity Reaction Status Date / Time No Known Allergies Allergy Verified 10/31/22 14:47 Assessment & Plan Assessment & Plan (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 11/04: pt refusing meds and not taking anything PO. nevertheless appears slightly improved from yesterday, more verbal with less latency of response. advised to take meds and fluids. 11/05: ate and drank some last night. refusing meds. no longer grossly catatonic. continue current mgmt. 11/06: no PO intake in past 24H. refusing meds. parnell warning, 3-day up . 11/07: no food, had some water last night. recheck BMP. completed commitment paperwork. refusing meds. 11/08: denies eating or drinking but yesterday's breakfast tray was empty on return. commitment filed. refusing meds. 11/09: continues without PO intake, not attending to ADLs. refusing meds. hearing scheduled for next . labs from yesterday not indicative of concerning dehydration. 11/10 continue tx. more talkative, although guarded. No overt delusional content reported. denies SI/HI. Reason for continued inpatient stay Substantial Risk for: inability to function Time Spent With Patient Time: Total time managing care of this patient today ____ minutes.
[2022-11-11 20:05] VITALS: RESP 16; TEMP 36.7
[2022-11-12 06:00] VITALS: BP 105/58; PULSE 49; RESP 16; TEMP 36.8; O2SAT 96
[2022-11-12 09:19] VITALS: BP 105/58; PULSE 49; RESP 16; TEMP 36.8; O2SAT 96
--- NOTE | 2022-11-12 10:12 | PC.NURSE ---
Refused scheduled AM medications. Cooperative with vital signs BP 105/58, P 49. Has not been eating or drinking, refused lunch and dinner yesterday, and breakfast this morning. Has not been observed to get out of bed to void. Will continue to monitor.
--- NOTE | 2022-11-12 13:43 | HO.PSYCHPN ---
Subjective Subjective Date of Service: 11/12/22 Reason For Visit: unsp phych disorder Subjective Notes: Section 7 Interim History: met with patient. Discussed with Nursing. Chart reviewed. Overall very isolative. As per nursing unclear if he has eaten- might not have eaten or drank in 3 days. 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 Very poor ADLs. Denies eating and drinking anything I am just not hungry . Denies weakness, dizziness etc.. Reports not liking medications and does not feel like he needs them. Denies feeling depressed suicidal or experiencing any psychotic symptoms. Medication Compliance: No Side effects from medications: No Attending Groups: No Review of Systems Review of Systems Yes Unobtainable due to mental status Mental Status Exam Mental Status Exam Narrative: Very poor self-care. found supine in bed, awake, responsive, terse. general PMR. cooperative. thoughts linear and logical. affect masked. mood not too bad, no SI/HI/AVH expressed. Insight and judgment appears limited Diagnostics Vital Signs (24Hr): Vital Signs - 24 hr 11/11/22 20:05 11/12/22 06:00 11/12/22 09:19 Temperature 98.1 F 98.2 F 98.2 F Pulse Rate 49 L 49 L Respiratory Rate 16 16 16 Blood Pressure 105/58 L 105/58 L Pulse Oximetry 96 96 Oxygen Delivery Method Room Air Room Air Labs 11/08/22 15:07 Medications Medications Current Medications Acetaminophen (Acetaminophen 325 Mg Tablet) 650 mg PO Q6H PRN PRN Reason: Headache/Pain Mild Scale (1-3) Al Hydroxide/Mg Hydroxide (Magnesium Hydrox/Alum Hydrox 30 Ml Oral.Susp) 30 ml PO Q6H PRN PRN Reason: Heartburn/Nausea Hydroxyzine HCl (Hydroxyzine Hcl 25 Mg Tablet) 25 mg PO Q6H PRN PRN Reason: Anxiety Magnesium Hydroxide (Milk Of Magnesia 30 Ml Oral.Susp) 30 ml PO DAILY PRN PRN Reason: Constipation Olanzapine (Olanzapine 2.5 Mg Tablet) 2.5 mg PO BID [facility] Last Admin: 11/12/22 09:20 Dose: Not Given Trazodone HCl (Trazodone Hcl 50 Mg Tablet) 50 mg PO BEDTIME MRX1 PRN PRN Reason: Insomnia Allergies Allergies Allergy/AdvReac Type Severity Reaction Status Date / Time No Known Allergies Allergy Verified 10/31/22 14:47 Assessment & Plan Assessment & Plan (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 11/04: pt refusing meds and not taking anything PO. nevertheless appears slightly improved from yesterday, more verbal with less latency of response. advised to take meds and fluids. 11/05: ate and drank some last night. refusing meds. no longer grossly catatonic. continue current mgmt. 11/06: no PO intake in past 24H. refusing meds. parnell warning, 3-day up . 11/07: no food, had some water last night. recheck BMP. completed commitment paperwork. refusing meds. 11/08: denies eating or drinking but yesterday's breakfast tray was empty on return. commitment filed. refusing meds. 11/09: continues without PO intake, not attending to ADLs. refusing meds. hearing scheduled for next . labs from yesterday not indicative of concerning dehydration. 11/10 continue tx. more talkative, although guarded. No overt delusional content reported. denies SI/HI. 11/12/22: will order CMP for tomorrow morning given uncertainty ref PO intake Reason for continued inpatient stay Substantial Risk for: inability to function Time Spent With Patient Time: Total time managing care of this patient today ____ minutes.
[2022-11-12 19:50] VITALS: BP 109/68; PULSE 56; RESP 18; TEMP 36.8; O2SAT 96
--- NOTE | 2022-11-13 03:31 | PC.NURSE ---
Dangelo Scruggs is noted to be isolating in his room throughout the evening, his affect is flat, mood likely depressed although he denies it. he refused all snacks/food offered, he remained in his bed the entire evening. he refused all offers for medications. patient was informed that he will have lab work in the morning. no behavioral concerns. continue to encourage PO intake, monitor for safety, encourage patient to be out of bed, encourage hygiene, continue Plan of Care
--- NOTE | 2022-11-13 08:54 | HO.PSYCHPN ---
Subjective Subjective Date of Service: 11/13/22 Reason For Visit: unsp phych disorder Subjective Notes: Section 7 Interim History: Pt mostly in bed. Pt reports he had a good weekend.' Pt denies SI/HI. He also denies VH/AH. No overt delusional content noted or reported. Pt has not showered. Pt with limited insight as to why others are concern in terms of his ability to function and care for himself. Medication Compliance: No Review of Systems Review of Systems Yes Unobtainable due to mental status Mental Status Exam Mental Status Exam Narrative: Very poor self-care. found supine in bed, awake, responsive, terse. general PMR. cooperative. thoughts linear and logical. affect masked. mood not too bad, no SI/HI/AVH expressed. Insight and judgment appears limited Diagnostics Vital Signs (24Hr): Vital Signs - 24 hr 11/12/22 09:19 11/12/22 19:50 Temperature 98.2 F 98.2 F Pulse Rate 49 L 56 Respiratory Rate 16 18 Blood Pressure 105/58 L 109/68 Pulse Oximetry 96 96 Oxygen Delivery Method Room Air Room Air Labs 11/13/22 08:00 Labs: Laboratory Results - last 48 hr 11/13/22 08:00 Sodium 140 Potassium 4.8 Chloride 103 Carbon Dioxide 22 Anion Gap 20 BUN 25 H Creatinine 1.07 Estim Creat Clear Calc TNP Estimated GFR > 60 Random Glucose 73 Calcium 10.0 Total Bilirubin 0.9 AST 21 ALT 16 Alkaline Phosphatase 62 Total Protein 7.1 Albumin 4.0 Medications Medications Current Medications Acetaminophen (Acetaminophen 325 Mg Tablet) 650 mg PO Q6H PRN PRN Reason: Headache/Pain Mild Scale (1-3) Al Hydroxide/Mg Hydroxide (Magnesium Hydrox/Alum Hydrox 30 Ml Oral.Susp) 30 ml PO Q6H PRN PRN Reason: Heartburn/Nausea Hydroxyzine HCl (Hydroxyzine Hcl 25 Mg Tablet) 25 mg PO Q6H PRN PRN Reason: Anxiety Magnesium Hydroxide (Milk Of Magnesia 30 Ml Oral.Susp) 30 ml PO DAILY PRN PRN Reason: Constipation Olanzapine (Olanzapine 2.5 Mg Tablet) 2.5 mg PO BID GABRIEL Last Admin: 11/13/22 08:54 Dose: Not Given Trazodone HCl (Trazodone Hcl 50 Mg Tablet) 50 mg PO BEDTIME MRX1 PRN PRN Reason: Insomnia Allergies Allergies Allergy/AdvReac Type Severity Reaction Status Date / Time No Known Allergies Allergy Verified 10/31/22 14:47 Assessment & Plan Assessment & Plan (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 11/04: pt refusing meds and not taking anything PO. nevertheless appears slightly improved from yesterday, more verbal with less latency of response. advised to take meds and fluids. 11/05: ate and drank some last night. refusing meds. no longer grossly catatonic. continue current mgmt. 11/06: no PO intake in past 24H. refusing meds. parnell warning, 3-day up . 11/07: no food, had some water last night. recheck BMP. completed commitment paperwork. refusing meds. 11/08: denies eating or drinking but yesterday's breakfast tray was empty on return. commitment filed. refusing meds. 11/09: continues without PO intake, not attending to ADLs. refusing meds. hearing scheduled for next . labs from yesterday not indicative of concerning dehydration. 11/10 continue tx. more talkative, although guarded. No overt delusional content reported. denies SI/HI. 11/12/22: will order CMP for tomorrow morning given uncertainty ref PO intake 11/13 continue tx. Reason for continued inpatient stay Substantial Risk for: inability to function Time Spent With Patient Time: Total time managing care of this patient today ____ minutes.
[2022-11-13 09:34] VITALS: RESP 18
[2022-11-13 18:00] VITALS: BP 107/64; PULSE 76; RESP 18; TEMP 36.7; O2SAT 95
--- NOTE | 2022-11-13 21:52 | PC.NURSE ---
Augustus is noted to be isolating in his room throughout the evening, he denies pain, anxiety/depression, auditory/visual hallucination and suicidal/homicidal ideation. he is guarded with fair eye contact. patient reports that he had not eaten or had fluids throughout the day however it was reported that he had been observed earlier eating snack, drinking water and he ate his lunch. he did not eat dinner. he states that he is unsure when his last BM was but refused prune juice and Milk of Magnesia. no scheduled HS medications. monitor for safety, continue Plan of Care
[2022-11-14 08:39] VITALS: BP 90/60; PULSE 79; RESP 18; TEMP 36.7; O2SAT 96
--- NOTE | 2022-11-14 11:57 | HO.PSYCHPN ---
Subjective Subjective Date of Service: 11/14/22 Reason For Visit: unsp phych disorder Subjective Notes: Section 7 Interim History: Pt continues mostly in bed. Pt reports he had a good weekend.' Pt denies SI/HI. He also denies VH/AH. No overt delusional content noted or reported. Pt has not showered. Pt with limited insight as to why others are concern in terms of his ability to function and care for himself. No significant change. Medication Compliance: No Review of Systems Review of Systems Yes Unobtainable due to mental status Mental Status Exam Mental Status Exam Narrative: Very poor self-care. found supine in bed, awake, responsive, terse. general PMR. cooperative. thoughts linear and logical. affect masked. mood not too bad, no SI/HI/AVH expressed. Insight and judgment appears limited Diagnostics Vital Signs (24Hr): Vital Signs - 24 hr 11/13/22 18:00 11/14/22 08:39 Temperature 98.1 F 98.1 F Pulse Rate 76 79 Respiratory Rate 18 18 Blood Pressure 107/64 90/60 Pulse Oximetry 95 96 Oxygen Delivery Method Room Air Room Air Labs 11/13/22 08:00 Labs: Laboratory Results - last 48 hr 11/13/22 08:00 Sodium 140 Potassium 4.8 Chloride 103 Carbon Dioxide 22 Anion Gap 20 BUN 25 H Creatinine 1.07 Estim Creat Clear Calc TNP Estimated GFR > 60 Random Glucose 73 Calcium 10.0 Total Bilirubin 0.9 AST 21 ALT 16 Alkaline Phosphatase 62 Total Protein 7.1 Albumin 4.0 Medications Medications Current Medications Acetaminophen (Acetaminophen 325 Mg Tablet) 650 mg PO Q6H PRN PRN Reason: Headache/Pain Mild Scale (1-3) Al Hydroxide/Mg Hydroxide (Magnesium Hydrox/Alum Hydrox 30 Ml Oral.Susp) 30 ml PO Q6H PRN PRN Reason: Heartburn/Nausea Hydroxyzine HCl (Hydroxyzine Hcl 25 Mg Tablet) 25 mg PO Q6H PRN PRN Reason: Anxiety Magnesium Hydroxide (Milk Of Magnesia 30 Ml Oral.Susp) 30 ml PO DAILY PRN PRN Reason: Constipation Olanzapine (Olanzapine 2.5 Mg Tablet) 2.5 mg PO BID GABRIEL Last Admin: 11/14/22 08:49 Dose: Not Given Trazodone HCl (Trazodone Hcl 50 Mg Tablet) 50 mg PO BEDTIME PRN PRN Reason: Insomnia Allergies Allergies Allergy/AdvReac Type Severity Reaction Status Date / Time No Known Allergies Allergy Verified 10/31/22 14:47 Assessment & Plan Assessment & Plan (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 11/04: pt refusing meds and not taking anything PO. nevertheless appears slightly improved from yesterday, more verbal with less latency of response. advised to take meds and fluids. 11/05: ate and drank some last night. refusing meds. no longer grossly catatonic. continue current mgmt. 11/06: no PO intake in past 24H. refusing meds. parnell warning, 3-day up . 11/07: no food, had some water last night. recheck BMP. completed commitment paperwork. refusing meds. 11/08: denies eating or drinking but yesterday's breakfast tray was empty on return. commitment filed. refusing meds. 11/09: continues without PO intake, not attending to ADLs. refusing meds. hearing scheduled for next . labs from yesterday not indicative of concerning dehydration. 11/10 continue tx. more talkative, although guarded. No overt delusional content reported. denies SI/HI. 11/12/22: will order CMP for tomorrow morning given uncertainty ref PO intake 11/13 increase in BUN and Cr due to dehydration 11/14 continue tx. refuses medications but unable to provide explanation as to why not show understanding in terms of effects of decrease oral intake on renal function. Reason for continued inpatient stay Substantial Risk for: inability to function Time Spent With Patient Time: Total time managing care of this patient today ____ minutes.
[2022-11-14 19:16] VITALS: BP 109/62; PULSE 61; RESP 18; TEMP 36.7; O2SAT 97
[2022-11-15 08:00] VITALS: BP 116/71; PULSE 56; RESP 16; TEMP 36.5; O2SAT 97
--- NOTE | 2022-11-15 14:06 | HO.PSYCHPN ---
Subjective Subjective Date of Service: 11/15/22 Reason For Visit: unsp phych disorder Interim History: labs and past 5 days' worth of notes reviewed. pt lying supine in bed, awake and alert. initially says he's not doing too well, then states he is doing fine. reiterates opinion of his depression and need for medication and asks pt to reconsider his choice. per staff, ate lunch yesterday, bit no other food/drink. court tomorrow. Mental Status Exam Mental Status Exam Narrative: Very poor self-care. found supine in bed, awake, responsive, terse. general PMR. cooperative. thoughts linear and logical. affect masked. mood not too good initially, then fine. no SI/HI/AVH expressed. Insight and judgment appears limited Diagnostics Vital Signs (24Hr): Vital Signs - 24 hr 11/14/22 19:16 11/15/22 08:00 Temperature 98.1 F 97.7 F Pulse Rate 61 56 Respiratory Rate 18 16 Blood Pressure 109/62 116/71 Pulse Oximetry 97 97 Oxygen Delivery Method Room Air Room Air Labs 11/13/22 08:00 Medications Medications Current Medications Acetaminophen (Acetaminophen 325 Mg Tablet) 650 mg PO Q6H PRN PRN Reason: Headache/Pain Mild Scale (1-3) Al Hydroxide/Mg Hydroxide (Magnesium Hydrox/Alum Hydrox 30 Ml Oral.Susp) 30 ml PO Q6H PRN PRN Reason: Heartburn/Nausea Hydroxyzine HCl (Hydroxyzine Hcl 25 Mg Tablet) 25 mg PO Q6H PRN PRN Reason: Anxiety Magnesium Hydroxide (Milk Of Magnesia 30 Ml Oral.Susp) 30 ml PO DAILY PRN PRN Reason: Constipation Olanzapine (Olanzapine 2.5 Mg Tablet) 2.5 mg PO BID GABRIEL Last Admin: 11/15/22 08:23 Dose: Not Given Trazodone HCl (Trazodone Hcl 50 Mg Tablet) 50 mg PO BEDTIME PRN PRN Reason: Insomnia Allergies Allergies Allergy/AdvReac Type Severity Reaction Status Date / Time No Known Allergies Allergy Verified 10/31/22 14:47 Assessment & Plan Assessment & Plan (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 11/04: pt refusing meds and not taking anything PO. nevertheless appears slightly improved from yesterday, more verbal with less latency of response. advised to take meds and fluids. 11/05: ate and drank some last night. refusing meds. no longer grossly catatonic. continue current mgmt. 11/06: no PO intake in past 24H. refusing meds. parnell warning, 3-day up . 11/07: no food, had some water last night. recheck BMP. completed commitment paperwork. refusing meds. 11/08: denies eating or drinking but yesterday's breakfast tray was empty on return. commitment filed. refusing meds. 11/09: continues without PO intake, not attending to ADLs. refusing meds. hearing scheduled for next . labs from yesterday not indicative of concerning dehydration. 11/10 continue tx. more talkative, although guarded. No overt delusional content reported. denies SI/HI. 11/11: will order CMP for tomorrow morning given uncertainty ref PO intake 11/13: increase in BUN and Cr due to dehydration 11/14: continue tx. refuses medications but unable to provide explanation as to why not show understanding in terms of effects of decrease oral intake on renal function. 11/15: unchanged from last week. intermittent meals, BUN mildly elevated. court tomorrow. Reason for continued inpatient stay Substantial Risk for: harm to self, inability to function and rapid decompensation Time Spent With Patient Time: Total time managing care of this patient today __25__ minutes.
[2022-11-15 18:00] VITALS: BP 107/61; PULSE 63; TEMP 36.8; O2SAT 95
[2022-11-16 08:00] VITALS: BP 91/54; PULSE 55; RESP 18; TEMP 36.7; O2SAT 97
[2022-11-16 09:38] LABS: Alanine Aminotransferase 15 U/L (0-40); Albumin Level 3.6 g/dL (3.5-5.0); Alkaline Phosphatase 59 U/L (39-117); Anion Gap 15 (12-20); Aspartate Amino Transferase 22 U/L (5-37); Bilirubin Total 0.9 mg/dL (0.0-1.0); Blood Urea Nitrogen 16 mg/dL (9-16); Calcium 9.6 mg/dL (8.4-10.2); Carbon Dioxide 22 mmol/L (22-29); Chloride 106 mmol/L (96-108); Estimated Glomerular Filt Rate > 60; Glucose Random 89 mg/dL (60-115); Potassium 4.9 mmol/L (3.3-5.1); Sodium 138 mmol/L (135-145); Total Protein 6.8 g/dL (6.5-8.0)
--- NOTE | 2022-11-16 15:55 | HO.PSYCHPN ---
Subjective Subjective Date of Service: 11/16/22 Reason For Visit: unsp phych disorder Interim History: no change in presentation. bland responses, vague. thinks maybe he has mental illness. on being asked what that might be he can only answer, i don't know. on being asked what makes him think that he references experiences earlier in his life. on being asked what those experiences are, he replies, ruizn. declines antidepressant. per staff, remains in bed, no PO intake per his report. not attending groups. refusing meals. not attending to ADLs. flat, withdrawn. isolative. hypotensive today. water pitcher was refilled by staff at some point in the past 24H. Mental Status Exam Mental Status Exam Narrative: Very poor self-care. found supine in bed, awake, responsive, terse. general PMR. cooperative. thoughts linear and logical. affect masked. mood ok. no SI/HI/AVH expressed. Insight and judgment appears limited Diagnostics Vital Signs (24Hr): Vital Signs - 24 hr 11/15/22 18:00 11/16/22 08:00 Temperature 98.3 F 98.1 F Pulse Rate 63 55 Respiratory Rate 18 Blood Pressure 107/61 91/54 L Pulse Oximetry 95 97 Oxygen Delivery Method Room Air Room Air Labs 11/16/22 08:11 Labs: Laboratory Results - last 48 hr 11/16/22 08:11 Sodium 138 Potassium 4.9 Chloride 106 Carbon Dioxide 22 Anion Gap 15 BUN 16 Creatinine 0.97 Estim Creat Clear Calc TNP Estimated GFR > 60 Random Glucose 89 Calcium 9.6 Total Bilirubin 0.9 AST 22 ALT 15 Alkaline Phosphatase 59 Total Protein 6.8 Albumin 3.6 Medications Medications Current Medications Acetaminophen (Acetaminophen 325 Mg Tablet) 650 mg PO Q6H PRN PRN Reason: Headache/Pain Mild Scale (1-3) Al Hydroxide/Mg Hydroxide (Magnesium Hydrox/Alum Hydrox 30 Ml Oral.Susp) 30 ml PO Q6H PRN PRN Reason: Heartburn/Nausea Hydroxyzine HCl (Hydroxyzine Hcl 25 Mg Tablet) 25 mg PO Q6H PRN PRN Reason: Anxiety Magnesium Hydroxide (Milk Of Magnesia 30 Ml Oral.Susp) 30 ml PO DAILY PRN PRN Reason: Constipation Olanzapine (Olanzapine 2.5 Mg Tablet) 2.5 mg PO BID GABRIEL Last Admin: 11/16/22 08:22 Dose: Not Given Trazodone HCl (Trazodone Hcl 50 Mg Tablet) 50 mg PO BEDTIME PRN PRN Reason: Insomnia Allergies Allergies Allergy/AdvReac Type Severity Reaction Status Date / Time No Known Allergies Allergy Verified 10/31/22 14:47 Assessment & Plan Assessment & Plan (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 11/04: pt refusing meds and not taking anything PO. nevertheless appears slightly improved from yesterday, more verbal with less latency of response. advised to take meds and fluids. 11/05: ate and drank some last night. refusing meds. no longer grossly catatonic. continue current mgmt. 11/06: no PO intake in past 24H. refusing meds. parnell warning, 3-day up . 11/07: no food, had some water last night. recheck BMP. completed commitment paperwork. refusing meds. 11/08: denies eating or drinking but yesterday's breakfast tray was empty on return. commitment filed. refusing meds. 11/09: continues without PO intake, not attending to ADLs. refusing meds. hearing scheduled for next . labs from yesterday not indicative of concerning dehydration. 11/10 continue tx. more talkative, although guarded. No overt delusional content reported. denies SI/HI. 11/11: will order CMP for tomorrow morning given uncertainty ref PO intake 11/13: increase in BUN and Cr due to dehydration 11/14: continue tx. refuses medications but unable to provide explanation as to why not show understanding in terms of effects of decrease oral intake on renal function. 11/15: unchanged from last week. intermittent meals, BUN mildly elevated. court tomorrow. 11/16: court deferred for BEHZAD. no change in presentation. place on 1:1 for observation of PO intake. lying all day in bed, PMR, with shades drawn, for a darkened room. refusing medications. Reason for continued inpatient stay Substantial Risk for: harm to self Time Spent With Patient Time: Total time managing care of this patient today ____ minutes.
[2022-11-16 19:50] VITALS: BP 107/61; PULSE 86; RESP 17; TEMP 36.4; O2SAT 95
[2022-11-17 08:00] VITALS: BP 102/64; PULSE 58; RESP 16; TEMP 36.7; O2SAT 96
--- NOTE | 2022-11-17 13:23 | HO.PSYCHPN ---
Subjective Subjective Date of Service: 11/17/22 Reason For Visit: unsp phych disorder Interim History: calm, cooperative. observed ambulating on the unit with food tray. informed pt of switch to anti-depressant medication Rx and DC of neuroleptics. MD described reasoning for 1:1. lights have been turned on in pt's room, sitter at bedside. per staff report, pt has had demonstrable PO intake today. no change in behaviors, refused meds and meals yesterday. did not change position at all overnight. Mental Status Exam Mental Status Exam Narrative: Very poor self-care. found supine in bed, awake, responsive, terse. general PMR. cooperative. thoughts linear and logical. affect masked. mood ok. no SI/HI/AVH expressed. Insight and judgment appears limited Diagnostics Vital Signs (24Hr): Vital Signs - 24 hr 11/16/22 19:50 11/17/22 08:00 Temperature 97.5 F 98.1 F Pulse Rate 86 58 Respiratory Rate 17 16 Blood Pressure 107/61 102/64 Pulse Oximetry 95 96 Oxygen Delivery Method Room Air Room Air Labs 11/16/22 08:11 Labs: Laboratory Results - last 48 hr 11/16/22 08:11 Sodium 138 Potassium 4.9 Chloride 106 Carbon Dioxide 22 Anion Gap 15 BUN 16 Creatinine 0.97 Estim Creat Clear Calc TNP Estimated GFR > 60 Random Glucose 89 Calcium 9.6 Total Bilirubin 0.9 AST 22 ALT 15 Alkaline Phosphatase 59 Total Protein 6.8 Albumin 3.6 Medications Medications Current Medications Acetaminophen (Acetaminophen 325 Mg Tablet) 650 mg PO Q6H PRN PRN Reason: Headache/Pain Mild Scale (1-3) Al Hydroxide/Mg Hydroxide (Magnesium Hydrox/Alum Hydrox 30 Ml Oral.Susp) 30 ml PO Q6H PRN PRN Reason: Heartburn/Nausea Hydroxyzine HCl (Hydroxyzine Hcl 25 Mg Tablet) 25 mg PO Q6H PRN PRN Reason: Anxiety Magnesium Hydroxide (Milk Of Magnesia 30 Ml Oral.Susp) 30 ml PO DAILY PRN PRN Reason: Constipation Olanzapine (Olanzapine 2.5 Mg Tablet) 2.5 mg PO BID GABRIEL Last Admin: 11/17/22 08:19 Dose: Not Given Trazodone HCl (Trazodone Hcl 50 Mg Tablet) 50 mg PO BEDTIME PRN PRN Reason: Insomnia Allergies Allergies Allergy/AdvReac Type Severity Reaction Status Date / Time No Known Allergies Allergy Verified 10/31/22 14:47 Assessment & Plan Assessment & Plan (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 11/04: pt refusing meds and not taking anything PO. nevertheless appears slightly improved from yesterday, more verbal with less latency of response. advised to take meds and fluids. 11/05: ate and drank some last night. refusing meds. no longer grossly catatonic. continue current mgmt. 11/06: no PO intake in past 24H. refusing meds. parnell warning, 3-day up . 11/07: no food, had some water last night. recheck BMP. completed commitment paperwork. refusing meds. 11/08: denies eating or drinking but yesterday's breakfast tray was empty on return. commitment filed. refusing meds. 11/09: continues without PO intake, not attending to ADLs. refusing meds. hearing scheduled for next . labs from yesterday not indicative of concerning dehydration. 11/10 continue tx. more talkative, although guarded. No overt delusional content reported. denies SI/HI. 11/11: will order CMP for tomorrow morning given uncertainty ref PO intake 11/13: increase in BUN and Cr due to dehydration 11/14: continue tx. refuses medications but unable to provide explanation as to why not show understanding in terms of effects of decrease oral intake on renal function. 11/15: unchanged from last week. intermittent meals, BUN mildly elevated. court tomorrow. 11/16: court deferred for BEHZAD. no change in presentation. place on 1:1 for observation of PO intake. lying all day in bed, PMR, with shades drawn, for a darkened room. refusing medications. 11/17: DC olanzapine. offer SSRI. eating and drinking this morning, after having been put on 1:1. continue current mgmt. commitment hearing likely next . Reason for continued inpatient stay Substantial Risk for: harm to self, inability to function and rapid decompensation Time Spent With Patient Time: Total time managing care of this patient today _25___ minutes.
[2022-11-17 21:30] VITALS: BP 100/65; PULSE 69; RESP 16; TEMP 36.8; O2SAT 99
[2022-11-18 09:39] VITALS: BP 105/57; PULSE 58; RESP 15; TEMP 36.7; O2SAT 97
--- NOTE | 2022-11-18 16:17 | HO.PSYCHPN ---
Subjective Subjective Date of Service: 11/18/22 Reason For Visit: unsp phych disorder Interim History: pt in darkened room with shades drawn, 1:1 at bedside. looking away from MD, does not respond to MD's attempts to speak with him, does not turn head to acknowledge MD. per staff, on 1:1. refusing meetings with staff. not responding to questions. ate 90% or breakfast, chips, 30 oz water. up more. slept overnight. refusing meds. Mental Status Exam Mental Status Exam Narrative: Very poor self-care. found supine in bed, awake with eyes open, head turned away from MD, not responsive to verbal prompts and questions. general PMR. cooperative. thoughts linear and logical. affect masked. no SI/HI/AVH expressed. Insight and judgment appears limited Diagnostics Vital Signs (24Hr): Vital Signs - 24 hr 11/17/22 21:30 11/18/22 09:39 Temperature 98.3 F 98.0 F Pulse Rate 69 58 Respiratory Rate 16 15 Blood Pressure 100/65 105/57 L Pulse Oximetry 99 97 Oxygen Delivery Method Room Air Room Air Labs 11/16/22 08:11 Medications Medications Current Medications Acetaminophen (Acetaminophen 325 Mg Tablet) 650 mg PO Q6H PRN PRN Reason: Headache/Pain Mild Scale (1-3) Al Hydroxide/Mg Hydroxide (Magnesium Hydrox/Alum Hydrox 30 Ml Oral.Susp) 30 ml PO Q6H PRN PRN Reason: Heartburn/Nausea Hydroxyzine HCl (Hydroxyzine Hcl 25 Mg Tablet) 25 mg PO Q6H PRN PRN Reason: Anxiety Magnesium Hydroxide (Milk Of Magnesia 30 Ml Oral.Susp) 30 ml PO DAILY PRN PRN Reason: Constipation Sertraline HCl (Sertraline Hcl 50 Mg Tablet) 50 mg PO DAILY [facility] Last Admin: 11/18/22 09:44 Dose: Not Given Trazodone HCl (Trazodone Hcl 50 Mg Tablet) 50 mg PO BEDTIME PRN PRN Reason: Insomnia Allergies Allergies Allergy/AdvReac Type Severity Reaction Status Date / Time No Known Allergies Allergy Verified 10/31/22 14:47 Assessment & Plan Assessment & Plan (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 11/04: pt refusing meds and not taking anything PO. nevertheless appears slightly improved from yesterday, more verbal with less latency of response. advised to take meds and fluids. 11/05: ate and drank some last night. refusing meds. no longer grossly catatonic. continue current mgmt. 11/06: no PO intake in past 24H. refusing meds. parnell warning, 3-day up . 11/07: no food, had some water last night. recheck BMP. completed commitment paperwork. refusing meds. 11/08: denies eating or drinking but yesterday's breakfast tray was empty on return. commitment filed. refusing meds. 11/09: continues without PO intake, not attending to ADLs. refusing meds. hearing scheduled for next . labs from yesterday not indicative of concerning dehydration. 11/10 continue tx. more talkative, although guarded. No overt delusional content reported. denies SI/HI. 11/11: will order CMP for tomorrow morning given uncertainty ref PO intake 11/13: increase in BUN and Cr due to dehydration 11/14: continue tx. refuses medications but unable to provide explanation as to why not show understanding in terms of effects of decrease oral intake on renal function. 11/15: unchanged from last week. intermittent meals, BUN mildly elevated. court tomorrow. 11/16: court deferred for BEHZAD. no change in presentation. place on 1:1 for observation of PO intake. lying all day in bed, PMR, with shades drawn, for a darkened room. refusing medications. 11/17: DC olanzapine. offer SSRI. eating and drinking this morning, after having been put on 1:1. continue current mgmt. commitment hearing likely next . 11/18: refusing to look at or speak with MD. clearly ate and drank more yesterday, up and out of room more. nevertheless, spends vast majority of his time lying in bed in the dark. refusing meds. Reason for continued inpatient stay Substantial Risk for: inability to function and rapid decompensation Time Spent With Patient Time: Total time managing care of this patient today ____ minutes.
[2022-11-18 19:45] VITALS: BP 117/70; PULSE 51; RESP 18; TEMP 36.4; O2SAT 97
--- NOTE | 2022-11-18 20:54 | PC.NURSE ---
Augustus Scruggs is noted to be laying in his bed staring at the wall/ceiling he did not respond to this financial writer verbally, nor did he turn his gaze towards this financial writer. he allowed vital signs to be taken however the only interaction he had was to lift his left arm slightly to allow the blood pressure cuff to be applied. will continue to monitor patient for changes in presentation, monitor for safety, continue Plan of Care
[2022-11-19 08:00] VITALS: BP 110/67; PULSE 57; RESP 16; TEMP 36.7; O2SAT 96
--- NOTE | 2022-11-19 14:46 | PC.NURSE ---
Patient isolative to room throughout the shift. Observed to be on back staring at ceiling. Refused to communicate with TW. Did not make eye contact. Patient was on 1:1 for i/o earlier in shift. Spoke several words to sitter. Sat up and ate 100% of breakfast. Refused lunch.
--- NOTE | 2022-11-19 15:02 | HO.PSYCHPN ---
Subjective Subjective Date of Service: 11/19/22 Reason For Visit: unsp phych disorder Interim History: staring straight at ceiling. no responses, no eye blink, no movements. per staff, not participating in 1:1. up at [place] and got food and drink. ate an apple, drank some water. slept perhaps 4 hours, hard to say. Mental Status Exam Mental Status Exam Narrative: Very poor self-care. found supine in bed, awake with eyes open, not responsive to verbal prompts and questions. general PMR, no eye blink. not cooperative. affect masked. no SI/HI/AVH expressed. Insight and judgment appears limited Diagnostics Vital Signs (24Hr): Vital Signs - 24 hr 11/18/22 19:45 11/19/22 08:00 Temperature 97.5 F 98.1 F Pulse Rate 51 57 Respiratory Rate 18 16 Blood Pressure 117/70 110/67 Pulse Oximetry 97 96 Oxygen Delivery Method Room Air Room Air Labs 11/16/22 08:11 Medications Medications Current Medications Acetaminophen (Acetaminophen 325 Mg Tablet) 650 mg PO Q6H PRN PRN Reason: Headache/Pain Mild Scale (1-3) Al Hydroxide/Mg Hydroxide (Magnesium Hydrox/Alum Hydrox 30 Ml Oral.Susp) 30 ml PO Q6H PRN PRN Reason: Heartburn/Nausea Hydroxyzine HCl (Hydroxyzine Hcl 25 Mg Tablet) 25 mg PO Q6H PRN PRN Reason: Anxiety Magnesium Hydroxide (Milk Of Magnesia 30 Ml Oral.Susp) 30 ml PO DAILY PRN PRN Reason: Constipation Sertraline HCl (Sertraline Hcl 50 Mg Tablet) 50 mg PO DAILY [facility] Last Admin: 11/19/22 09:24 Dose: Not Given Trazodone HCl (Trazodone Hcl 50 Mg Tablet) 50 mg PO BEDTIME PRN PRN Reason: Insomnia Allergies Allergies Allergy/AdvReac Type Severity Reaction Status Date / Time No Known Allergies Allergy Verified 10/31/22 14:47 Assessment & Plan Assessment & Plan (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 11/04: pt refusing meds and not taking anything PO. nevertheless appears slightly improved from yesterday, more verbal with less latency of response. advised to take meds and fluids. 11/05: ate and drank some last night. refusing meds. no longer grossly catatonic. continue current mgmt. 11/06: no PO intake in past 24H. refusing meds. parnell warning, 3-day up . 11/07: no food, had some water last night. recheck BMP. completed commitment paperwork. refusing meds. 11/08: denies eating or drinking but yesterday's breakfast tray was empty on return. commitment filed. refusing meds. 11/09: continues without PO intake, not attending to ADLs. refusing meds. hearing scheduled for next . labs from yesterday not indicative of concerning dehydration. 11/10 continue tx. more talkative, although guarded. No overt delusional content reported. denies SI/HI. 11/11: will order CMP for tomorrow morning given uncertainty ref PO intake 11/13: increase in BUN and Cr due to dehydration 11/14: continue tx. refuses medications but unable to provide explanation as to why not show understanding in terms of effects of decrease oral intake on renal function. 11/15: unchanged from last week. intermittent meals, BUN mildly elevated. court tomorrow. 11/16: court deferred for BEHZAD. no change in presentation. place on 1:1 for observation of PO intake. lying all day in bed, PMR, with shades drawn, for a darkened room. refusing medications. 11/17: DC olanzapine. offer SSRI. eating and drinking this morning, after having been put on 1:1. continue current mgmt. commitment hearing likely next . 11/18: refusing to look at or speak with MD. clearly ate and drank more yesterday, up and out of room more. nevertheless, spends vast majority of his time lying in bed in the dark. refusing meds. 11/19: ate more yesterday and last night. DC 1:1. appearing catatonic today, no eye blink staring at ceiling not responding. Reason for continued inpatient stay Substantial Risk for: harm to self and inability to function Time Spent With Patient Time: Total time managing care of this patient today ____ minutes.
[2022-11-19 21:17] VITALS: BP 105/58; PULSE 76; TEMP 36.6; O2SAT 98
--- NOTE | 2022-11-20 10:23 | PC.NURSE ---
Patient refused am vitals and meds. Did not engage with TW in any way.
--- NOTE | 2022-11-20 14:54 | HO.PSYCHPN ---
Subjective Subjective Date of Service: 11/20/22 Reason For Visit: unsp phych disorder Interim History: no change in presentation from yesterday. lying motionless and mute in his bed, supine. per staff, not responding to questions. did raise arm for VS yesterday. ate 100% breakfast, zero lunch, and 25% of dinner. Mental Status Exam Mental Status Exam Narrative: Very poor self-care. found supine in bed, awake with eyes open, not responsive to verbal prompts and questions. general PMR, no eye blink. not cooperative. affect masked. no SI/HI/AVH expressed. Insight and judgment appears limited Diagnostics Vital Signs (24Hr): Vital Signs - 24 hr 11/19/22 21:17 Temperature 97.8 F Pulse Rate 76 Blood Pressure 105/58 L Pulse Oximetry 98 Oxygen Delivery Method Room Air Labs 11/16/22 08:11 Medications Medications Current Medications Acetaminophen (Acetaminophen 325 Mg Tablet) 650 mg PO Q6H PRN PRN Reason: Headache/Pain Mild Scale (1-3) Al Hydroxide/Mg Hydroxide (Magnesium Hydrox/Alum Hydrox 30 Ml Oral.Susp) 30 ml PO Q6H PRN PRN Reason: Heartburn/Nausea Hydroxyzine HCl (Hydroxyzine Hcl 25 Mg Tablet) 25 mg PO Q6H PRN PRN Reason: Anxiety Magnesium Hydroxide (Milk Of Magnesia 30 Ml Oral.Susp) 30 ml PO DAILY PRN PRN Reason: Constipation Sertraline HCl (Sertraline Hcl 50 Mg Tablet) 50 mg PO DAILY [facility] Last Admin: 11/20/22 08:48 Dose: Not Given Trazodone HCl (Trazodone Hcl 50 Mg Tablet) 50 mg PO BEDTIME PRN PRN Reason: Insomnia Allergies Allergies Allergy/AdvReac Type Severity Reaction Status Date / Time No Known Allergies Allergy Verified 10/31/22 14:47 Assessment & Plan Assessment & Plan (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 11/04: pt refusing meds and not taking anything PO. nevertheless appears slightly improved from yesterday, more verbal with less latency of response. advised to take meds and fluids. 11/05: ate and drank some last night. refusing meds. no longer grossly catatonic. continue current mgmt. 11/06: no PO intake in past 24H. refusing meds. parnell warning, 3-day up weds. 11/07: no food, had some water last night. recheck BMP. completed commitment paperwork. refusing meds. 11/08: denies eating or drinking but yesterday's breakfast tray was empty on return. commitment filed. refusing meds. 11/09: continues without PO intake, not attending to ADLs. refusing meds. hearing scheduled for next . labs from yesterday not indicative of concerning dehydration. 11/10 continue tx. more talkative, although guarded. No overt delusional content reported. denies SI/HI. 11/11: will order CMP for tomorrow morning given uncertainty ref PO intake 11/13: increase in BUN and Cr due to dehydration 11/14: continue tx. refuses medications but unable to provide explanation as to why not show understanding in terms of effects of decrease oral intake on renal function. 11/15: unchanged from last week. intermittent meals, BUN mildly elevated. court tomorrow. 11/16: court deferred for BEHZAD. no change in presentation. place on 1:1 for observation of PO intake. lying all day in bed, PMR, with shades drawn, for a darkened room. refusing medications. 11/17: DC olanzapine. offer SSRI. eating and drinking this morning, after having been put on 1:1. continue current mgmt. commitment hearing likely next . 11/18: refusing to look at or speak with MD. clearly ate and drank more yesterday, up and out of room more. nevertheless, spends vast majority of his time lying in bed in the dark. refusing meds. 11/19: ate more yesterday and last night. DC 1:1. appearing catatonic today, no eye blink staring at ceiling not responding. 11/20: moderate PO intake yesterday. appearing more catatonic today. continue to offer meds. Reason for continued inpatient stay Substantial Risk for: harm to self and inability to function Time Spent With Patient Time: Total time managing care of this patient today ____ minutes.
[2022-11-20 18:00] VITALS: RESP 14
--- NOTE | 2022-11-21 12:55 | PC.NURSE ---
0830 received Pt in bed awake but not responding . I asked him if i could take his vitals signs no response. I asked him if he would take am med, no response to marketing copywriter.
--- NOTE | 2022-11-21 15:17 | P.PNPSI_ITS ---
Subjective Subjective Date of Service: 11/21/22 Reason For Visit: unsp phych disorder Interim History: lying supine, mute, staring at ceiling. per staff, not making eye contact, not responding to staff questions. did mutely refuse VS, meds, 1:1. Mental Status Exam Mental Status Exam Narrative: Very poor self-care. found supine in bed, awake with eyes open, not responsive to verbal prompts and questions. general PMR, no eye blink. not cooperative. affect masked. no SI/HI/AVH expressed. Insight and judgment appears limited Diagnostics Vital Signs (24Hr): Vital Signs - 24 hr 11/20/22 18:00 Respiratory Rate 14 Labs 11/16/22 08:11 Medications Medications Current Medications Acetaminophen (Acetaminophen 325 Mg Tablet) 650 mg PO Q6H PRN PRN Reason: Headache/Pain Mild Scale (1-3) Al Hydroxide/Mg Hydroxide (Magnesium Hydrox/Alum Hydrox 30 Ml Oral.Susp) 30 ml PO Q6H PRN PRN Reason: Heartburn/Nausea Hydroxyzine HCl (Hydroxyzine Hcl 25 Mg Tablet) 25 mg PO Q6H PRN PRN Reason: Anxiety Magnesium Hydroxide (Milk Of Magnesia 30 Ml Oral.Susp) 30 ml PO DAILY PRN PRN Reason: Constipation Sertraline HCl (Sertraline Hcl 50 Mg Tablet) 50 mg PO DAILY [facility] Last Admin: 11/21/22 08:37 Dose: Not Given Trazodone HCl (Trazodone Hcl 50 Mg Tablet) 50 mg PO BEDTIME PRN PRN Reason: Insomnia Allergies Allergies Allergy/AdvReac Type Severity Reaction Status Date / Time No Known Allergies Allergy Verified 10/31/22 14:47 Assessment & Plan Assessment & Plan (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 11/04: pt refusing meds and not taking anything PO. nevertheless appears slightly improved from yesterday, more verbal with less latency of response. advised to take meds and fluids. 11/05: ate and drank some last night. refusing meds. no longer grossly john tonic. continue current mgmt. 11/06: no PO intake in past 24H. refusing meds. parnell warning, 3-day up . 11/07: no food, had some water last night. recheck BMP. completed commitment paperwork. refusing meds. 11/08: denies eating or drinking but yesterday's breakfast tray was empty on return. commitment filed. refusing meds. 11/09: continues without PO intake, not attending to ADLs. refusing meds. hearing scheduled for next . labs from yesterday not indicative of concerning dehydration. 11/10 continue tx. more talkative, although guarded. No overt delusional content reported. denies SI/HI. 11/11: will order CMP for tomorrow morning given uncertainty ref PO intake 11/13: increase in BUN and Cr due to dehydration 11/14: continue tx. refuses medications but unable to provide explanation as to why not show understanding in terms of effects of decrease oral intake on renal function. 11/15: unchanged from last week. intermittent meals, BUN mildly elevated. court tomorrow. 11/16: court deferred for BEHZAD. no change in presentation. place on 1:1 for observation of PO intake. lying all day in bed, PMR, with shades drawn, for a darkened room. refusing medications. 11/17: DC olanzapine. offer SSRI. eating and drinking this morning, after having been put on 1:1. continue current mgmt. commitment hearing likely next . 11/18: refusing to look at or speak with MD. clearly ate and drank more yesterday, up and out of room more. nevertheless, spends vast majority of his time lying in bed in the dark. refusing meds. 11/19: ate more yesterday and last night. DC 1:1. appearing catatonic today, no eye blink staring at ceiling not responding. 11/20: moderate PO intake yesterday. appearing more catatonic today. continue to offer meds. 11/21: catatonic. no report on sleep or PO intake as pt is off 1:1. continue to offer meds. Reason for continued inpatient stay Substantial Risk for: harm to self, inability to function and rapid decompensation Time Spent With Patient Time: Total time managing care of this patient today ____ minutes.
[2022-11-21 20:15] VITALS: RESP 18
[2022-11-22 06:00] VITALS: RESP 16
[2022-11-22 12:24] LABS: Anion Gap 11 (12-20); Blood Urea Nitrogen 16 mg/dL (9-16); Calcium 9.9 mg/dL (8.4-10.2); Carbon Dioxide 25 mmol/L (22-29); Chloride 106 mmol/L (96-108); Estimated Glomerular Filt Rate > 60; Glucose Random 93 mg/dL (60-115); Potassium 4.5 mmol/L (3.3-5.1); Sodium 137 mmol/L (135-145)
--- NOTE | 2022-11-22 14:38 | P.PNPSI_ITS ---
Subjective Subjective Date of Service: 11/22/22 Reason For Visit: unsp phych disorder Interim History: no change in presentation. per staff, BEHZAD coming today. occasionally eats some of his meal. not attending groups. doesn't leave room. refusing medications. Mental Status Exam Mental Status Exam Narrative: Very poor self-care. found supine in bed, awake with eyes open, not respo nsive to verbal prompts and questions. general PMR, little eye blink. not cooperative. affect masked. no SI/HI/AVH expressed. Insight and judgment appears limited Diagnostics Vital Signs (24Hr): Vital Signs - 24 hr 11/21/22 20:15 11/22/22 06:00 Respiratory Rate 18 16 Labs 11/22/22 11:55 Labs: Laboratory Results - last 48 hr 11/22/22 11:55 Sodium 137 Potassium 4.5 Chloride 106 Carbon Dioxide 25 Anion Gap 11 L BUN 16 Creatinine 0.86 Estim Creat Clear Calc TNP Estimated GFR > 60 Random Glucose 93 Calcium 9.9 Medications Medications Current Medications Acetaminophen (Acetaminophen 325 Mg Tablet) 650 mg PO Q6H PRN PRN Reason: Headache/Pain Mild Scale (1-3) Al Hydroxide/Mg Hydroxide (Magnesium Hydrox/Alum Hydrox 30 Ml Oral.Susp) 30 ml PO Q6H PRN PRN Reason: Heartburn/Nausea Hydroxyzine HCl (Hydroxyzine Hcl 25 Mg Tablet) 25 mg PO Q6H PRN PRN Reason: Anxiety Magnesium Hydroxide (Milk Of Magnesia 30 Ml Oral.Susp) 30 ml PO DAILY PRN PRN Reason: Constipation Sertraline HCl (Sertraline Hcl 50 Mg Tablet) 50 mg PO DAILY [facility] Last Admin: 11/22/22 09:50 Dose: Not Given Trazodone HCl (Trazodone Hcl 50 Mg Tablet) 50 mg PO BEDTIME PRN PRN Reason: Insomnia Allergies Allergies Allergy/AdvReac Type Severity Reaction Status Date / Time No Known Allergies Allergy Verified 10/31/22 14:47 Assessment & Plan Assessment & Plan (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 11/04: pt refusing meds and not taking anything PO. nevertheless appears slightly improved from yesterday, more verbal with less latency of response. advised to take meds and fluids. 11/05: ate and drank some last night. refusing meds. no longer grossly catatonic. continue current mgmt. 11/06: no PO intake in past 24H. refusing meds. parnell warning, 3-day up . 11/07: no food, had some water last night. recheck BMP. completed commitment paperwork. refusing meds. 11/08: denies eating or drinking but yesterday's breakfast tray was empty on return. commitment filed. refusing meds. 11/09: continues without PO intake, not attending to ADLs. refusing meds. hearing scheduled for next . labs from yesterday not indicative of concerning dehydration. 11/10 continue tx. more talkative, although guarded. No overt delusional content reported. denies SI/HI. 11/11: will order CMP for tomorrow morning given uncertainty ref PO intake 11/13: increase in BUN and Cr due to dehydration 11/14: continue tx. refuses medications but unable to provide explanation as to why not show understanding in terms of effects of decrease oral intake on renal function. 11/15: unchanged from last week. intermittent meals, BUN mildly elevated. court tomorrow. 11/16: court deferred for BEHZAD. no change in presentation. place on 1:1 for observation of PO intake. lying all day in bed, PMR, with shades drawn, for a darkened room. refusing medications. 11/17: DC olanzapine. offer SSRI. eating and drinking this morning, after having been put on 1:1. continue current mgmt. commitment hearing likely next . 11/18: refusing to look at or speak with MD. clearly ate and drank more yester day, up and out of room more. nevertheless, spends vast majority of his time lying in bed in the dark. refusing meds. 11/19: ate more yesterday and last night. DC 1:1. appearing catatonic today, no eye blink staring at ceiling not responding. 11/20: moderate PO intake yesterday. appearing more catatonic today. continue to offer meds. 11/21: catatonic. no report on sleep or PO intake as pt is off 1:1. continue to offer meds. 11/22: catatonic. labs reassuring. court tomorrow. Reason for continued inpatient stay Substantial Risk for: harm to self and inability to function Time Spent With Patient Time: Total time managing care of this patient today __25__ minutes.
[2022-11-22 19:40] VITALS: RESP 18
[2022-11-23 09:10] VITALS: RESP 18
--- NOTE | 2022-11-23 12:34 | HO.PSYCHPN ---
Subjective Subjective Date of Service: 11/23/22 Reason For Visit: unsp phych disorder Interim History: no movement, no responses to prompts for conversation/questions. per staff, poor PO intake. in bed, no responses. Mental Status Exam Mental Status Exam Narrative: Very poor self-care. found supine in bed, eyes closed, not responsive to verbal prompts and questions. general PMR. not cooperative. affect masked. no SI/HI/AVH expressed. Insight and judgment appears limited Diagnostics Vital Signs (24Hr): Vital Signs - 24 hr 11/22/22 19:40 11/23/22 09:10 Respiratory Rate 18 18 Labs 11/22/22 11:55 Labs: Laboratory Results - last 48 hr 11/22/22 11:55 Sodium 137 Potassium 4.5 Chloride 106 Carbon Dioxide 25 Anion Gap 11 L BUN 16 Creatinine 0.86 Estim Creat Clear Calc TNP Estimated GFR > 60 Random Glucose 93 Calcium 9.9 Medications Medications Current Medications Acetaminophen (Acetaminophen 325 Mg Tablet) 650 mg PO Q6H PRN PRN Reason: Headache/Pain Mild Scale (1-3) Al Hydroxide/Mg Hydroxide (Magnesium Hydrox/Alum Hydrox 30 Ml Oral.Susp) 30 ml PO Q6H PRN PRN Reason: Heartburn/Nausea Hydroxyzine HCl (Hydroxyzine Hcl 25 Mg Tablet) 25 mg PO Q6H PRN PRN Reason: Anxiety Magnesium Hydroxide (Milk Of Magnesia 30 Ml Oral.Susp) 30 ml PO DAILY PRN PRN Reason: Constipation Sertraline HCl (Sertraline Hcl 50 Mg Tablet) 50 mg PO DAILY GABRIEL Last Admin: 11/23/22 09:51 Dose: Not Given Trazodone HCl (Trazodone Hcl 50 Mg Tablet) 50 mg PO BEDTIME PRN PRN Reason: Insomnia Allergies Allergies Allergy/AdvReac Type Severity Reaction Status Date / Time No Known Allergies Allergy Verified 10/31/22 14:47 Assessment & Plan Assessment & Plan (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 11/04: pt refusing meds and not taking anything PO. nevertheless appears slightly improved from yesterday, more verbal with less latency of response. advised to take meds and fluids. 11/05: ate and drank some last night. refusing meds. no longer grossly catatonic. continue current mgmt. 11/06: no PO intake in past 24H. refusing meds. parnell warning, 3-day up . 11/07: no food, had some water last night. recheck BMP. completed commitment paperwork. refusing meds. 11/08: denies eating or drinking but yesterday's breakfast tray was empty on return. commitment filed. refusing meds. 11/09: continues without PO intake, not attending to ADLs. refusing meds. hearing scheduled for next . labs from yesterday not indicative of concerning dehydration. 11/10 continue tx. more talkative, although guarded. No overt delusional content reported. denies SI/HI. 11/11: will order CMP for tomorrow morning given uncertainty ref PO intake 11/13: increase in BUN and Cr due to dehydration 11/14: continue tx. refuses medications but unable to provide explanation as to why not show understanding in terms of effects of decrease oral intake on renal function. 11/15: unchanged from last week. intermittent meals, BUN mildly elevated. court tomorrow. 11/16: court deferred for BEHZAD. no change in presentation. place on 1:1 for observation of PO intake. lying all day in bed, PMR, with shades drawn, for a darkened room. refusing medications. 11/17: DC olanzapine. offer SSRI. eating and drinking this morning, after having been put on 1:1. continue current mgmt. commitment hearing likely next . 11/18: refusing to look at or speak with MD. clearly ate and drank more yesterday, up and out of room more. nevertheless, spends vast majority of his time lying in bed in the dark. refusing meds. 11/19: ate more yesterday and last night. DC 1:1. appearing catatonic today, no eye blink staring at ceiling not responding. 11/20: moderate PO intake yesterday. appearing more catatonic today. continue to offer meds. 11/21: catatonic. no report on sleep or PO intake as pt is off 1:1. continue to offer meds. 11/22: catatonic. labs reassuring. court tomorrow. 11/23: catatonic. committed and ordered meds in court. Reason for continued inpatient stay Substantial Risk for: harm to self, inability to function and rapid decompensation Time Spent With Patient Time: Total time managing care of this patient today _140___ minutes.
[2022-11-23 22:20] VITALS: RESP 18
[2022-11-24 06:00] VITALS: RESP 16
--- NOTE | 2022-11-24 11:46 | P.PNPSI_ITS ---
Subjective Subjective Date of Service: 11/24/22 Reason For Visit: unsp phych disorder Interim History: catatonic. lying in bed, no responses. some eye blink is only movement. per staff, same. Mental Status Exam Mental Status Exam Narrative: Very poor self-care. found supine in bed, eyes open, not responsive to verbal prompts and questions. general PMR. not cooperative. affect masked. no SI/HI/AVH expressed. Insight and judgment appears limited Diagnostics Vital Signs (24Hr): Vital Signs - 24 hr 11/23/22 22:20 11/24/22 06:00 Respiratory Rate 18 16 Labs 11/22/22 11:55 Labs: Laboratory Results - last 48 hr 11/22/22 11:55 Sodium 137 Potassium 4.5 Chloride 106 Carbon Dioxide 25 Anion Gap 11 L BUN 16 Creatinine 0.86 Estim Creat Clear Calc TNP Estimated GFR > 60 Random Glucose 93 Calcium 9.9 Medications Medications Current Medications Acetaminophen (Acetaminophen 325 Mg Tablet) 650 mg PO Q6H PRN PRN Reason: Headache/Pain Mild Scale (1-3) Al Hydroxide/Mg Hydroxide (Magnesium Hydrox/Alum Hydrox 30 Ml Oral.Susp) 30 ml PO Q6H PRN PRN Reason: Heartburn/Nausea Hydroxyzine HCl (Hydroxyzine Hcl 25 Mg Tablet) 25 mg PO Q6H PRN PRN Reason: Anxiety Lorazepam (Lorazepam 1 Mg Tablet) 2 mg PO TID GABRIEL Lorazepam (Lorazepam 2 Mg/Ml Vial) 2 mg IM TID PRN PRN Reason: refusal of PO meds, christine jennings Lorazepam (Lorazepam 1 Mg Tablet) 2 mg PO ONCE ONE Stop: 11/24/22 11:45 Magnesium Hydroxide (Milk Of Magnesia 30 Ml Oral.Susp) 30 ml PO DAILY PRN PRN Reason: Constipation Trazodone HCl (Trazodone Hcl 50 Mg Tablet) 50 mg PO BEDTIME PRN PRN Reason: Insomnia Allergies Allergies Allergy/AdvReac Type Severity Reaction Status Date / Time No Known Allergies Allergy Verified 10/31/22 14:47 Assessment & Plan Assessment & Plan (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 11/04: pt refusing meds and not taking anything PO. nevertheless appears slightly improved from yesterday, more verbal with less latency of response. advised to take meds and fluids. 11/05: ate and drank some last night. refusing meds. no longer grossly cat atonic. continue current mgmt. 11/06: no PO intake in past 24H. refusing meds. parnell warning, 3-day up . 11/07: no food, had some water last night. recheck BMP. completed commitment paperwork. refusing meds. 11/08: denies eating or drinking but yesterday's breakfast tray was empty on return. commitment filed. refusing meds. 11/09: continues without PO intake, not attending to ADLs. refusing meds. hearing scheduled for next . labs from yesterday not indicative of concerning dehydration. 11/10 continue tx. more talkative, although guarded. No overt delusional content reported. denies SI/HI. 11/11: will order CMP for tomorrow morning given uncertainty ref PO intake 11/13: increase in BUN and Cr due to dehydration 11/14: continue tx. refuses medications but unable to provide explanation as to why not show understanding in terms of effects of decrease oral intake on renal function. 11/15: unchanged from last week. intermittent meals, BUN mildly elevated. court tomorrow. 11/16: court deferred for BEHZAD. no change in presentation. place on 1:1 for observation of PO intake. lying all day in bed, PMR, with shades drawn, for a darkened room. refusing medications. 11/17: DC olanzapine. offer SSRI. eating and drinking this morning, after having been put on 1:1. continue current mgmt. commitment hearing likely next . 11/18: refusing to look at or speak with MD. clearly ate and drank more yesterday, up and out of room more. nevertheless, spends vast majority of his time lying in bed in the dark. refusing meds. 11/19: ate more yesterday and last night. DC 1:1. appearing catatonic today, no eye blink staring at ceiling not responding. 11/20: moderate PO intake yesterday. appearing more catatonic today. continue to offer meds. 11/21: catatonic. no report on sleep or PO intake as pt is off 1:1. continue to offer meds. 11/22: catatonic. labs reassuring. court tomorrow. 11/23: catatonic. committed and ordered meds in court. 11/24: start ativan 2 mg TID with IM back-up for catatonia. plan to start neuroleptics and anti-depressants once catatonia improved. Reason for continued inpatient stay Substantial Risk for: harm to self and inability to function Time Spent With Patient Time: Total time managing care of this patient today __25__ minutes.
[2022-11-24] MEDS: LORazepam 2 MG/ML VIAL IM ×3 (12:14→22:01)
[2022-11-24 20:00] VITALS: BP 117/76; PULSE 102; RESP 18; TEMP 36.4; O2SAT 99
[2022-11-25 08:00] VITALS: RESP 18
[2022-11-25] MEDS: LORazepam 2 MG/ML VIAL IM (08:51)
--- NOTE | 2022-11-25 11:23 | HO.PSYCHPN ---
Subjective Subjective Date of Service: 11/26/22 Reason For Visit: unsp phych disorder Subjective Notes: Section 7 and Section 8 Medical Problems Affecting Mental Status: No Interim History: Came out of his room last night but is in bed, not moving today. Refused PO Ativan yesterday and did not get IM. Received first dose of IM Ativan this morning about 9 AM. Has not gotten out of bed or eaten anything. Vitals are normal and afebrile Medication Compliance: No Side effects from medications: No Attending Groups: No Review of Systems Acute medical concerns: No Medical Review of Systems: unchanged Mental Status Exam Mental Status Exam Patient Appearance: Disheveled Patient Orientation: Person (mute) Level of Consciousness: Obtunded (unclear if sedated or catatonic behavior. Does not respond to sternal rub) Patient Behavior: Asleep Ability to Follow Directions: Poor Diagnostics Vital Signs (24Hr): Vital Signs - 24 hr 11/24/22 20:00 11/25/22 08:00 Temperature 97.6 F Pulse Rate 102 H Respiratory Rate 18 18 Blood Pressure 117/76 Pulse Oximetry 99 Oxygen Delivery Method Room Air Labs 11/22/22 11:55 Medications Medications Current Medications Acetaminophen (Acetaminophen 325 Mg Tablet) 650 mg PO Q6H PRN PRN Reason: Headache/Pain Mild Scale (1-3) Al Hydroxide/Mg Hydroxide (Magnesium Hydrox/Alum Hydrox 30 Ml Oral.Susp) 30 ml PO Q6H PRN PRN Reason: Heartburn/Nausea Hydroxyzine HCl (Hydroxyzine Hcl 25 Mg Tablet) 25 mg PO Q6H PRN PRN Reason: Anxiety Lorazepam (Lorazepam 1 Mg Tablet) 2 mg PO TID ON LICENSE OF [facility] Last Admin: 11/25/22 09:00 Dose: Not Given Lorazepam (Lorazepam 2 Mg/Ml Vial) 2 mg IM TID PRN PRN Reason: refusal of PO medschristine Last Admin: 11/25/22 08:51 Dose: 2 mg Magnesium Hydroxide (Milk Of Magnesia 30 Ml Oral.Susp) 30 ml PO DAILY PRN PRN Reason: Constipation Trazodone HCl (Trazodone Hcl 50 Mg Tablet) 50 mg PO BEDTIME PRN PRN Reason: Insomnia Allergies Allergies Allergy/AdvReac Type Severity Reaction Status Date / Time No Known Allergies Allergy Verified 10/31/22 14:47 Assessment & Plan Assessment & Plan (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 11/04: pt refusing meds and not taking anything PO. nevertheless appears slightly improved from yesterday, more verbal with less latency of response. advised to take meds and fluids. 11/05: ate and drank some last night. refusing meds. no longer grossly catatonic. continue current mgmt. 11/06: no PO intake in past 24H. refusing meds. parnell warning, 3-day up . 11/07: no food, had some water last night. recheck BMP. completed commitment paperwork. refusing meds. 11/08: denies eating or drinking but yesterday's breakfast tray was empty on return. commitment filed. refusing meds. 11/09: continues without PO intake, not attending to ADLs. refusing meds. hearing scheduled for next . labs from yesterday not indicative of concerning dehydration. 11/10 continue tx. more talkative, although guarded. No overt delusional content reported. denies SI/HI. 11/11: will order CMP for tomorrow morning given uncertainty ref PO intake 11/13: increase in BUN and Cr due to dehydration 11/14: continue tx. refuses medications but unable to provide explanation as to why not show understanding in terms of effects of decrease oral intake on renal function. 11/15: unchanged from last week. intermittent meals, BUN mildly elevated. court tomorrow. 11/16: court deferred for BEHZAD. no change in presentation. place on 1:1 for observation of PO intake. lying all day in bed, PMR, with shades drawn, for a darkened room. refusing medications. 11/17: DC olanzapine. offer SSRI. eating and drinking this morning, after having been put on 1:1. continue current mgmt. commitment hearing likely next . 11/18: refusing to look at or speak with MD. clearly ate and drank more yesterday, up and out of room more. nevertheless, spends vast majority of his time lying in bed in the dark. refusing meds. 11/19: ate more yesterday and last night. DC 1:1. appearing catatonic today, no eye blink staring at ceiling not responding. 11/20: moderate PO intake yesterday. appearing more catatonic today. continue to offer meds. 11/21: catatonic. no report on sleep or PO intake as pt is off 1:1. continue to offer meds. 11/22: catatonic. labs reassuring. court tomorrow. 11/23: catatonic. committed and ordered meds in court. 11/24: start ativan 2 mg TID with IM back-up for catatonia. plan to start neuroleptics and anti-depressants once catatonia improved. 11/25: decrease ativan to 1mg tid as he had no response to 2 mg and might be experiencing sedation from it Reason for continued inpatient stay Substantial Risk for: inability to function Time Spent With Patient Time: Total time managing care of this patient today __20__ minutes.
[2022-11-25 11:26] VITALS: RESP 18; TEMP 37.1
[2022-11-25] MEDS: LORazepam 2 MG/ML VIAL 1 MG IM ×2 (14:43→21:04)
[2022-11-25 19:40] VITALS: BP 103/57; PULSE 66; RESP 18; TEMP 36.4; O2SAT 96
[2022-11-26 08:15] VITALS: RESP 18; TEMP 36.6
[2022-11-26] MEDS: LORazepam 2 MG/ML VIAL 1 MG IM ×3 (08:54→21:59)
--- NOTE | 2022-11-26 08:59 | HO.PSYCHPN ---
Subjective Subjective Date of Service: 11/26/22 Reason For Visit: catatonia Subjective Notes: Section 7 and Section 8 Medical Problems Affecting Mental Status: No Interim History: Sedation improved after decrease from 2 mg to 1 mg Ativan: however, still not responding verbally and remaining in bed. Medication Compliance: No (receiving IM ativan due to refusal of PO) Side effects from medications: No Attending Groups: No Review of Systems Acute medical concerns: No Medical Review of Systems: unchanged Mental Status Exam Mental Status Exam Patient Appearance: Disheveled Level of Consciousness: Alert Patient Behavior: Isolative and Poor Eye Contact Behavior Comments: Lying in bed. Does not respond when addressed. Not following verbal commands Mood Description: Flat Affect Description: Withdrawn Patient Cognition Impaired: No Ability to Follow Directions: Poor Speech Pattern: No Speech Judgement: Poor Diagnostics Vital Signs (24Hr): Vital Signs - 24 hr 11/25/22 11:26 11/25/22 19:40 Temperature 98.7 F 97.5 F Pulse Rate 66 Respiratory Rate 18 18 Blood Pressure 103/57 L Pulse Oximetry 96 Oxygen Delivery Method Room Air Labs 11/22/22 11:55 Medications Medications Current Medications Acetaminophen (Acetaminophen 325 Mg Tablet) 650 mg PO Q6H PRN PRN Reason: Headache/Pain Mild Scale (1-3) Al Hydroxide/Mg Hydroxide (Magnesium Hydrox/Alum Hydrox 30 Ml Oral.Susp) 30 ml PO Q6H PRN PRN Reason: Heartburn/Nausea Hydroxyzine HCl (Hydroxyzine Hcl 25 Mg Tablet) 25 mg PO Q6H PRN PRN Reason: Anxiety Lorazepam (Lorazepam 1 Mg Tablet) 1 mg PO TID [facility] Last Admin: 11/26/22 08:54 Dose: Not Given Lorazepam (Lorazepam 2 Mg/Ml Vial) 1 mg IM TID PRN PRN Reason: if refusing PO Last Admin: 11/26/22 08:54 Dose: 1 mg Magnesium Hydroxide (Milk Of Magnesia 30 Ml Oral.Susp) 30 ml PO DAILY PRN PRN Reason: Constipation Trazodone HCl (Trazodone Hcl 50 Mg Tablet) 50 mg PO BEDTIME PRN PRN Reason: Insomnia Allergies Allergies Allergy/AdvReac Type Severity Reaction Status Date / Time No Known Allergies Allergy Verified 10/31/22 14:47 Assessment & Plan Assessment & Plan (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 11/04: pt refusing meds and not taking anything PO. nevertheless appears slightly improved from yesterday, more verbal with less latency of response. advised to take meds and fluids. 11/05: ate and drank some last night. refusing meds. no longer grossly catatonic. continue current mgmt. 11/06: no PO intake in past 24H. refusing meds. parnell warning, 3-day up . 11/07: no food, had some water last night. recheck BMP. completed commitment paperwork. refusing meds. 11/08: denies eating or drinking but yesterday's breakfast tray was empty on return. commitment filed. refusing meds. 11/09: continues without PO intake, not attending to ADLs. refusing meds. hearing scheduled for next . labs from yesterday not indicative of concerning dehydration. 11/10 continue tx. more talkative, although guarded. No overt delusional content reported. denies SI/HI. 11/11: will order CMP for tomorrow morning given uncertainty ref PO intake 11/13: increase in BUN and Cr due to dehydration 11/14: continue tx. refuses medications but unable to provide explanation as to why not show understanding in terms of effects of decrease oral intake on renal function. 11/15: unchanged from last week. intermittent meals, BUN mildly elevated. court tomorrow. 11/16: court deferred for BEHZAD. no change in presentation. place on 1:1 for observation of PO intake. lying all day in bed, PMR, with shades drawn, for a darkened room. refusing medications. 11/17: DC olanzapine. offer SSRI. eating and drinking this morning, after having been put on 1:1. continue current mgmt. commitment hearing likely next . 11/18: refusing to look at or speak with MD. clearly ate and drank more yesterday, up and out of room more. nevertheless, spends vast majority of his time lying in bed in the dark. refusing meds. 11/19: ate more yesterday and last night. DC 1:1. appearing catatonic today, no eye blink staring at ceiling not responding. 11/20: moderate PO intake yesterday. appearing more catatonic today. continue to offer meds. 11/21: catatonic. no report on sleep or PO intake as pt is off 1:1. continue to offer meds. 11/22: catatonic. labs reassuring. court tomorrow. 11/23: catatonic. committed and ordered meds in court. 11/24: start ativan 2 mg TID with IM back-up for catatonia. plan to start neuroleptics and anti-depressants once catatonia improved. 11/25: decrease ativan to 1mg tid as he had no response to 2 mg and might be experiencing sedation from it 11/26: More alert on lower ativan dose but remains non-verbal and lying in bed Reason for continued inpatient stay Substantial Risk for: inability to function Time Spent With Patient Time: Total time managing care of this patient today ___15_ minutes.
--- NOTE | 2022-11-26 09:45 | PC.NURSE ---
Received Pt in bed, this am. awake and alert , eyes are open, however not responding to expert medical writer. I asked him if he wanted to take med, PO Ativan, no response. Pt was given 1mg Ativan IM per order. Pt tolerated, well. Breakfast meal was not eaten. I left water/ice pitcher filled at bedside with 2 juices and encouraged him to drink, again Pt did not respond to expert medical writer. Respirations 18 unlabored , Temp 97.9, visible skin on face is intact and pink.
--- NOTE | 2022-11-26 14:50 | PC.NURSE ---
Pt did not respond verbally to accepting PO medication Ativan , per court order Ativan 1mg IM it appeared that , Pt tolerated well. Encouraged Dangelo to eat/drink and to take his meds by mouth. Pts eyes are open but he did not respond verbally.
[2022-11-26 20:35] VITALS: BP 115/62; PULSE 78; RESP 18; TEMP 36.3; O2SAT 96
--- NOTE | 2022-11-27 03:59 | PC.NURSE ---
Augustus remained in bed throughout the evening, he continues to have avoident eye contact is will only answer this writers questions with head shakes/nods and shoulder shrug. he declined po medication and received IM Ativan in his left deltoid, monitor for safety, encourage groups, continue Plan of Care
[2022-11-27 08:30] VITALS: BP 105/60; PULSE 63; RESP 18; TEMP 36.6; O2SAT 97
[2022-11-27] MEDS: LORazepam 2 MG/ML VIAL 1 MG IM ×2 (09:09→14:56)
--- NOTE | 2022-11-27 15:10 | PC.NURSE ---
Pt ate 100% of Breakfast but didn't eat lunch. I left juice and a cup of ice at bedside @1510 encouraged Pt to drink, his eyes are open but not responding verbally to this content writer. Ativan given IM @0900 and 1500 IM , offered to give PO Pt did not respond either time but eyes are open.
--- NOTE | 2022-11-27 16:49 | P.PNPSI_ITS ---
Subjective Subjective Date of Service: 11/27/22 Reason For Visit: catatonia Subjective Notes: Section 8 Interim History: Pt in bed, non verbal, eyes close, difficult to wake up. Per nursing, pt mostly in bed, declines oral medications but receiving IM ativan. No change in ability to care for himself. Ativan decrease from 2mg po TID to 1mg po TID- pt continues catatonic and minimally engaging. Medication Compliance: Yes Side effects from medications: No Mental Status Exam Mental Status Exam Patient Appearance: Disheveled Level of Consciousness: Alert Patient Behavior: Isolative and Poor Eye Contact Behavior Comments: Lying in bed. Does not respond when addressed. Not following verbal commands Mood Description: Flat Affect Description: Withdrawn Patient Cognition Impaired: No Ability to Follow Directions: Poor Speech Pattern: No Speech Judgement: Poor Diagnostics Vital Signs (24Hr): Vital Signs - 24 hr 11/26/22 20:35 11/27/22 08:30 Temperature 97.4 F 97.9 F Pulse Rate 78 63 Respiratory Rate 18 18 Blood Pressure 115/62 105/60 Pulse Oximetry 96 97 Oxygen Delivery Method Room Air Room Air Labs 11/22/22 11:55 Medications Medications Current Medications Acetaminophen (Acetaminophen 325 Mg Tablet) 650 mg PO Q6H PRN PRN Reason: Headache/Pain Mild Scale (1-3) Al Hydroxide/Mg Hydroxide (Magnesium Hydrox/Alum Hydrox 30 Ml Oral.Susp) 30 ml PO Q6H PRN PRN Reason: Heartburn/Nausea Hydroxyzine HCl (Hydroxyzine Hcl 25 Mg Tablet) 25 mg PO Q6H PRN PRN Reason: Anxiety Lorazepam (Lorazepam 1 Mg Tablet) 2 mg PO TID GABRIEL Lorazepam (Lorazepam 2 Mg/Ml Vial) 2 mg IM TID PRN PRN Reason: if refusing PO Magnesium Hydroxide (Milk Of Magnesia 30 Ml Oral.Susp) 30 ml PO DAILY PRN PRN Reason: Constipation Trazodone HCl (Trazodone Hcl 50 Mg Tablet) 50 mg PO BEDTIME PRN PRN Reason: Insomnia Allergies Allergies Allergy/AdvReac Type Severity Reaction Status Date / Time No Known Allergies Allergy Verified 10/31/22 14:47 Assessment & Plan Assessment & Plan (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 11/04: pt refusing meds and not taking anything PO. nevertheless appears slightly improved from yesterday, more verbal with less latency of response. advised to take meds and fluids. 11/05: ate and drank some last night. refusing meds. no longer grossly catatonic. continue current mgmt. 11/06: no PO intake in past 24H. refusing meds. parnell warning, 3-day up . 11/07: no food, had some water last night. recheck BMP. completed commitment paperwork. refusing meds. 11/08: denies eating or drinking but yesterday's breakfast tray was empty on return. commitment filed. refusing meds. 11/09: continues without PO intake, not attending to ADLs. refusing meds. hearing scheduled for next . labs from yesterday not indicative of c oncerning dehydration. 11/10 continue tx. more talkative, although guarded. No overt delusional content reported. denies SI/HI. 11/11: will order CMP for tomorrow morning given uncertainty ref PO intake 11/13: increase in BUN and Cr due to dehydration 11/14: continue tx. refuses medications but unable to provide explanation as to why not show understanding in terms of effects of decrease oral intake on renal function. 11/15: unchanged from last week. intermittent meals, BUN mildly elevated. court tomorrow. 11/16: court deferred for BEHZAD. no change in presentation. place on 1:1 for observation of PO intake. lying all day in bed, PMR, with shades drawn, for a darkened room. refusing medications. 11/17: DC olanzapine. offer SSRI. eating and drinking this morning, after having been put on 1:1. continue current mgmt. commitment hearing likely next . 11/18: refusing to look at or speak with MD. clearly ate and drank more yesterday, up and out of room more. nevertheless, spends vast majority of his time lying in bed in the dark. refusing meds. 11/19: ate more yesterday and last night. DC 1:1. appearing catatonic today, no eye blink staring at ceiling not responding. 11/20: moderate PO intake yesterday. appearing more catatonic today. continue to offer meds. 11/21: catatonic. no report on sleep or PO intake as pt is off 1:1. continue to offer meds. 11/22: catatonic. labs reassuring. court tomorrow. 11/23: catatonic. committed and ordered meds in court. 11/24: start ativan 2 mg TID with IM back-up for catatonia. plan to start neuroleptics and anti-depressants once catatonia improved. 11/25: decrease ativan to 1mg tid as he had no response to 2 mg and might be experiencing sedation from it 11/26: More alert on lower ativan dose but remains non-verbal and lying in bed 11/27 increase ativan back to 2mg po TID back up IM. Reason for continued inpatient stay Substantial Risk for: inability to function Time Spent With Patient Time: Total time managing care of this patient today ____ minutes.
[2022-11-27 21:40] VITALS: RESP 16
[2022-11-27] MEDS: LORazepam 2 MG/ML VIAL IM (21:53)
[2022-11-28 08:20] VITALS: BP 106/63; PULSE 63; RESP 18; TEMP 36.6; O2SAT 98
[2022-11-28] MEDS: LORazepam 2 MG/ML VIAL IM ×4 (09:04→21:24)
--- NOTE | 2022-11-28 15:19 | HO.PSYCHPN ---
Subjective Subjective Date of Service: 11/28/22 Reason For Visit: catatonia Interim History: no change in presentation from last week. per staff, refusing PO meds. ativan at 1 mg TID and also at 2 mg TID has not broken the catatonia. ate 100% breakfast yesterday, however. did not have lunch or dinner. all day in bed. Mental Status Exam Mental Status Exam Narrative: Very poor self-care. found supine in bed, eyes open, not responsive to verbal prompts and questions. general PMR. not cooperative. affect masked. no SI/HI/AVH expressed. Insight and judgment appears limited Diagnostics Vital Signs (24Hr): Vital Signs - 24 hr 11/27/22 21:40 11/28/22 08:20 Temperature 97.8 F Pulse Rate 63 Respiratory Rate 16 18 Blood Pressure 106/63 Pulse Oximetry 98 Oxygen Delivery Method Room Air Labs 11/22/22 11:55 Medications Medications Current Medications Acetaminophen (Acetaminophen 325 Mg Tablet) 650 mg PO Q6H PRN PRN Reason: Headache/Pain Mild Scale (1-3) Al Hydroxide/Mg Hydroxide (Magnesium Hydrox/Alum Hydrox 30 Ml Oral.Susp) 30 ml PO Q6H PRN PRN Reason: Heartburn/Nausea Hydroxyzine HCl (Hydroxyzine Hcl 25 Mg Tablet) 25 mg PO Q6H PRN PRN Reason: Anxiety Lorazepam (Lorazepam 1 Mg Tablet) 2 mg PO TID [facility] Last Admin: 11/28/22 14:42 Dose: Not Given Lorazepam (Lorazepam 2 Mg/Ml Vial) 2 mg IM TID PRN PRN Reason: if refusing PO Last Admin: 11/28/22 14:39 Dose: 2 mg Magnesium Hydroxide (Milk Of Magnesia 30 Ml Oral.Susp) 30 ml PO DAILY PRN PRN Reason: Constipation Trazodone HCl (Trazodone Hcl 50 Mg Tablet) 50 mg PO BEDTIME PRN PRN Reason: Insomnia Allergies Allergies Allergy/AdvReac Type Severity Reaction Status Date / Time No Known Allergies Allergy Verified 10/31/22 14:47 Assessment & Plan Assessment & Plan (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 11/04: pt refusing meds and not taking anything PO. nevertheless appears slightly improved from yesterday, more verbal with less latency of response. advised to take meds and fluids. 11/05: ate and drank some last night. refusing meds. no longer grossly catatonic. continue current mgmt. 11/06: no PO intake in past 24H. refusing meds. parnell warning, 3-day up . 11/07: no food, had some water last night. recheck BMP. completed commitment paperwork. refusing meds. 11/08: denies eating or drinking but yesterday's breakfast tray was empty on return. commitment filed. refusing meds. 11/09: continues without PO intake, not attending to ADLs. refusing meds. hearing scheduled for next . labs from yesterday not indicative of concerning dehydration. 11/10 continue tx. more talkative, although guarded. No overt delusional content reported. denies SI/HI. 11/11: will order CMP for tomorrow morning given uncertainty ref PO intake 11/13: increase in BUN and Cr due to dehydration 11/14: continue tx. refuses medications but unable to provide explanation as to why not show understanding in terms of effects of decrease oral intake on renal function. 11/15: unchanged from last week. intermittent meals, BUN mildly elevated. court tomorrow. 11/16: court deferred for BEHZAD. no change in presentation. place on 1:1 for observation of PO intake. lying all day in bed, PMR, with shades drawn, for a darkened room. refusing medications. 11/17: DC olanzapine. offer SSRI. eating and drinking this morning, after having been put on 1:1. continue current mgmt. commitment hearing likely next . 11/18: refusing to look at or speak with MD. clearly ate and drank more yesterday, up and out of room more. nevertheless, spends vast majority of his time lying in bed in the dark. refusing meds. 11/19: ate more yesterday and last night. DC 1:1. appearing catatonic today, no eye blink staring at ceiling not responding. 11/20: moderate PO intake yesterday. appearing more catatonic today. continue to offer meds. 11/21: catatonic. no report on sleep or PO intake as pt is off 1:1. continue to offer meds. 11/22: catatonic. labs reassuring. court tomorrow. 11/23: catatonic. committed and ordered meds in court. 11/24: start ativan 2 mg TID with IM back-up for catatonia. plan to start neuroleptics and anti-depressants once catatonia improved. 11/25: decrease ativan to 1mg tid as he had no response to 2 mg and might be experiencing sedation from it 11/26: More alert on lower ativan dose but remains non-verbal and lying in bed 11/27 increase ativan back to 2mg po TID back up IM. 11/28: T/C gaining IV access to facilitate delivery of ativan; plan to increase to QID dosing. remains catatonic. case d/w nursing administration and medical and health services managerdirector pharmacovigilance. Reason for continued inpatient stay Substantial Risk for: harm to self and inability to function Time Spent With Patient Time: Total time managing care of this patient today __35__ minutes.
[2022-11-28 21:28] VITALS: PULSE 66; RESP 16
[2022-11-29 06:00] VITALS: BP 106/55; PULSE 62; RESP 16; TEMP 36.7; O2SAT 98
[2022-11-29] MEDS: LORazepam 2 MG/ML VIAL IM (08:22)
[2022-11-29] MEDS: LORazepam 2 MG/ML VIAL IVPUSH ×3 (12:59→21:41)
--- NOTE | 2022-11-29 14:46 | P.PNPSI_ITS ---
Subjective Subjective Date of Service: 11/29/22 Reason For Visit: catatonia Interim History: no change in presentation. catatonic. per staff, no bfast or lunch yesterday. however, came out of his room twice hill shift, denied SI. spoke about how hungry he was. Mental Status Exam Mental Status Exam Narrative: Very poor self-care. found supine in bed, eyes open, not responsive to verbal prompts and questions. general PMR. not cooperative. affect masked. no SI/HI/AVH expressed. Insight and judgment appears limited Diagnostics Vital Signs (24Hr): Vital Signs - 24 hr 11/28/22 21:28 11/29/22 06:00 Temperature 98.1 F Pulse Rate 66 62 Respiratory Rate 16 16 Blood Pressure 106/55 L Pulse Oximetry 98 Labs 11/22/22 11:55 Medications Medications Current Medications Acetaminophen (Acetaminophen 325 Mg Tablet) 650 mg PO Q6H PRN PRN Reason: Headache/Pain Mild Scale (1-3) Al Hydroxide/Mg Hydroxide (Magnesium Hydrox/Alum Hydrox 30 Ml Oral.Susp) 30 ml PO Q6H PRN PRN Reason: Heartburn/Nausea Hydroxyzine HCl (Hydroxyzine Hcl 25 Mg Tablet) 25 mg PO Q6H PRN PRN Reason: Anxiety Lorazepam (Lorazepam 2 Mg/Ml Vial) 2 mg IVPUSH QID GABRIEL Last Admin: 11/29/22 12:59 Dose: 2 mg Magnesium Hydroxide (Milk Of Magnesia 30 Ml Oral.Susp) 30 ml PO DAILY PRN PRN Reason: Constipation Trazodone HCl (Trazodone Hcl 50 Mg Tablet) 50 mg PO BEDTIME PRN PRN Reason: Insomnia Allergies Allergies Allergy/AdvReac Type Severity Reaction Status Date / Time No Known Allergies Allergy Verified 10/31/22 14:47 Assessment & Plan Assessment & Plan (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 11/04: pt refusing meds and not taking anything PO. nevertheless appears sligh tly improved from yesterday, more verbal with less latency of response. advised to take meds and fluids. 11/05: ate and drank some last night. refusing meds. no longer grossly catatonic. continue current mgmt. 11/06: no PO intake in past 24H. refusing meds. parnell warning, 3-day up . 11/07: no food, had some water last night. recheck BMP. completed commitment paperwork. refusing meds. 11/08: denies eating or drinking but yesterday's breakfast tray was empty on return. commitment filed. refusing meds. 11/09: continues without PO intake, not attending to ADLs. refusing meds. hearing scheduled for next . labs from yesterday not indicative of concerning dehydration. 11/10 continue tx. more talkative, although guarded. No overt delusional content reported. denies SI/HI. 11/11: will order CMP for tomorrow morning given uncertainty ref PO intake 11/13: increase in BUN and Cr due to dehydration 11/14: continue tx. refuses medications but unable to provide explanation as to wh y not show understanding in terms of effects of decrease oral intake on renal function. 11/15: unchanged from last week. intermittent meals, BUN mildly elevated. court tomorrow. 11/16: court deferred for BEHZAD. no change in presentation. place on 1:1 for observation of PO intake. lying all day in bed, PMR, with shades drawn, for a darkened room. refusing medications. 11/17: DC olanzapine. offer SSRI. eating and drinking this morning, after having been put on 1:1. continue current mgmt. commitment hearing likely next . 11/18: refusing to look at or speak with MD. clearly ate and drank more yesterday, up and out of room more. nevertheless, spends vast majority of his time lying in bed in the dark. refusing meds. 11/19: ate more yesterday and last night. DC 1:1. appearing catatonic today, no eye blink staring at ceiling not responding. 11/20: moderate PO intake yesterday. appearing more catatonic today. continue to offer meds. 11/21: catatonic. no report on sleep or PO intake as pt is off 1:1. continue to offer meds. 11/22: catatonic. labs reassuring. court tomorrow. 11/23: catatonic. committed and ordered meds in court. 11/24: start ativan 2 mg TID with IM back-up for catatonia. plan to start neuroleptics and anti-depressants once catatonia improved. 11/25: decrease ativan to 1mg tid as he had no response to 2 mg and might be experiencing sedation from it 11/26: More alert on lower ativan dose but remains non-verbal and lying in bed 11/27 increase ativan back to 2mg po TID back up IM. 11/28: T/C gaining IV access to facilitate delivery of ativan; plan to increase to QID dosing. remains catatonic. case d/w nursing administration and medical staff directordisplay director. 11/29: gain IV access today, start ativan 2 mg IV QID. was out of bed, eating and speaking yesterday evening. Reason for continued inpatient stay Substantial Risk for: inability to function and rapid decompensation Time Spent With Patient Time: Total time managing care of this patient today _25___ minutes.
[2022-11-29 20:43] VITALS: BP 102/55; PULSE 59; RESP 16; TEMP 36.6; O2SAT 97
--- NOTE | 2022-11-30 10:23 | PC.NURSE ---
When doing am assessment T/W noted a moderate sized inupiat of blood on opts blanket. The blanket was lifted to assess IV site and it was noted that the IV and dressing were removed with dried blood on Yuri and arm. Pt had no further bleeding. Pt was asked if he took IV out and only nodded NO x1. Pt wouldn't respond to any further questions only starred at the ceiling. MD and Clinical Coordinator notified. Pt to be placed on 1:1 for IV supervision. Clinical coordinator to attempt IV placement. Pt refusing po Ativan.
[2022-11-30 10:29] VITALS: BP 101/56; PULSE 74; RESP 16; TEMP 36.7; O2SAT 96
[2022-11-30] MEDS: LORazepam 2 MG/ML VIAL IVPUSH ×4 (11:30→21:59)
--- NOTE | 2022-11-30 16:17 | HO.PSYCHPN ---
Subjective Subjective Date of Service: 11/30/22 Reason For Visit: catatonia Interim History: no change in presentation. per staff, was up at 21:45 in the kitchen asking for food. awake several times overnight. apparently pulled out his IV access. Mental Status Exam Mental Status Exam Narrative: Very poor self-care. found supine in bed, eyes open, not responsive to verbal prompts and questions. general PMR. not cooperative. affect masked. no SI/HI/AVH expressed. Insight and judgment appears limited Diagnostics Vital Signs (24Hr): Vital Signs - 24 hr 11/29/22 20:43 11/30/22 10:29 Temperature 98 F 98.1 F Pulse Rate 59 74 Respiratory Rate 16 16 Blood Pressure 102/55 L 101/56 L Pulse Oximetry 97 96 Oxygen Delivery Method Room Air Room Air Labs 11/22/22 11:55 Medications Medications Current Medications Acetaminophen (Acetaminophen 325 Mg Tablet) 650 mg PO Q6H PRN PRN Reason: Headache/Pain Mild Scale (1-3) Al Hydroxide/Mg Hydroxide (Magnesium Hydrox/Alum Hydrox 30 Ml Oral.Susp) 30 ml PO Q6H PRN PRN Reason: Heartburn/Nausea Hydroxyzine HCl (Hydroxyzine Hcl 25 Mg Tablet) 25 mg PO Q6H PRN PRN Reason: Anxiety Lorazepam (Lorazepam 2 Mg/Ml Vial) 2 mg IVPUSH QID [facility]EL Last Admin: 11/30/22 14:04 Dose: 2 mg Magnesium Hydroxide (Milk Of Magnesia 30 Ml Oral.Susp) 30 ml PO DAILY PRN PRN Reason: Constipation Trazodone HCl (Trazodone Hcl 50 Mg Tablet) 50 mg PO BEDTIME PRN PRN Reason: Insomnia Allergies Allergies Allergy/AdvReac Type Severity Reaction Status Date / Time No Known Allergies Allergy Verified 10/31/22 14:47 Assessment & Plan Assessment & Plan (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 11/04: pt refusing meds and not taking anything PO. nevertheless appears slightly improved from yesterday, more verbal with less latency of response. advised to take meds and fluids. 11/05: ate and drank some last night. refusing meds. no longer grossly catatonic. continue current mgmt. 11/06: no PO intake in past 24H. refusing meds. parnell warning, 3-day up wed. 11/07: no food, had some water last night. recheck BMP. completed commitment paperwork. refusing meds. 11/08: denies eating or drinking but yesterday's breakfast tray was empty on return. commitment filed. refusing meds. 11/09: continues without PO intake, not attending to ADLs. refusing meds. hearing scheduled for next . labs from yesterday not indicative of concerning dehydration. 11/10 continue tx. more talkative, although guarded. No overt delusional content reported. denies SI/HI. 11/11: will order CMP for tomorrow morning given uncertainty ref PO intake 11/13: increase in BUN and Cr due to dehydration 11/14: continue tx. refuses medications but unable to provide explanation as to why not show understanding in terms of effects of decrease oral intake on renal function. 11/15: unchanged from last week. intermittent meals, BUN mildly elevated. court tomorrow. 11/16: court deferred for BEHZAD. no change in presentation. place on 1:1 for observation of PO intake. lying all day in bed, PMR, with shades drawn, for a darkened room. refusing medications. 11/17: DC olanzapine. offer SSRI. eating and drinking this morning, after having been put on 1:1. continue current mgmt. commitment hearing likely next . 11/18: refusing to look at or speak with MD. clearly ate and drank more yesterday, up and out of room more. nevertheless, spends vast majority of his time lying in bed in the dark. refusing meds. 11/19: ate more yesterday and last night. DC 1:1. appearing catatonic today, no eye blink staring at ceiling not responding. 11/20: moderate PO intake yesterday. appearing more catatonic today. continue to offer meds. 11/21: catatonic. no report on sleep or PO intake as pt is off 1:1. continue to offer meds. 11/22: catatonic. labs reassuring. court tomorrow. 11/23: catatonic. committed and ordered meds in court. 11/24: start ativan 2 mg TID with IM back-up for catatonia. plan to start neuroleptics and anti-depressants once catatonia improved. 11/25: decrease ativan to 1mg tid as he had no response to 2 mg and might be experiencing sedation from it 11/26: More alert on lower ativan dose but remains non-verbal and lying in bed 11/27 increase ativan back to 2mg po TID back up IM. 11/28: T/C gaining IV access to facilitate delivery of ativan; plan to increase to QID dosing. remains catatonic. case d/w nursing administration and medical laboratory technical officerdirector on air. 11/29: gain IV access today, start ativan 2 mg IV QID. was out of bed, eating and speaking yesterday evening. 11/30: 1:1 as he removed IV access, apparently. was up in kitchen getting food on evening shift. continue current mgmt. Reason for continued inpatient stay Substantial Risk for: harm to self and inability to function Time Spent With Patient Time: Total time managing care of this patient today __25__ minutes.
[2022-11-30 18:00] VITALS: BP 103/58; PULSE 63
[2022-11-30 22:27] VITALS: BP 105/64; PULSE 70; TEMP 36.4; O2SAT 95
[2022-12-01] MEDS: LORazepam 2 MG/ML VIAL IVPUSH ×4 (08:23→21:13)
[2022-12-01 09:00] VITALS: BP 99/58; PULSE 78; RESP 18; TEMP 36.3; O2SAT 98
[2022-12-01 11:24] VITALS: BP 98/58; PULSE 69
[2022-12-01 14:05] VITALS: BP 101/59; PULSE 68
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
[2022-12-01 21:10] VITALS: BP 108/60; PULSE 68
[2022-12-01 21:30] VITALS: BP 105/59; PULSE 67; RESP 18; TEMP 36.6; O2SAT 94
[2022-12-02 09:45] VITALS: BP 105/57; PULSE 58; RESP 16; TEMP 37; O2SAT 98
[2022-12-02] MEDS: LORazepam 2 MG/ML VIAL IVPUSH ×4 (09:49→21:11)
[2022-12-02 13:15] VITALS: BP 107/61; PULSE 61; RESP 16; O2SAT 96
[2022-12-02] MEDS: Artificial Tears 15 ML DROPS 2 DROP EYE-BOTH (14:19)
--- NOTE | 2022-12-02 14:43 | P.PNPSI_ITS ---
Subjective Subjective Date of Service: 12/03/22 Reason For Visit: catatonia Interim History: No real change in presentation. per staff, 1:1 with IV in. in bed all day shift. Nonverbal although awake. Didn't speak with examiner. Staff report he did go out of his room. Minimal to no PO intake. No tangible change with IV Ativan. Review of Systems Review of Systems Yes Unobtainable due to mental status Mental Status Exam Mental Status Exam Narrative: Very poor self-care. found supine in bed, eyes open, not responsive to verbal prompts and questions. general PMR. not cooperative. affect masked. no SI/HI/AVH expressed. Insight and judgment appears limited Patient Appearance: Disheveled Patient Orientation: Person (mute) Level of Consciousness: Alert Patient Behavior: Isolative and Poor Eye Contact Behavior Comments: Lying in bed. Does not respond when addressed. Not following verbal commands Mood Description: Flat Affect Description: Withdrawn Patient Cognition Impaired: No Ability to Follow Directions: Poor Speech Pattern: No Speech Diagnostics Vital Signs (24Hr): Vital Signs - 24 hr 12/01/22 21:10 12/01/22 21:30 12/02/22 09:45 Temperature 97.9 F 98.6 F Pulse Rate 68 67 58 Respiratory Rate 18 16 Blood Pressure 108/60 105/59 L 105/57 L Pulse Oximetry 94 98 Oxygen Delivery Method Room Air Room Air 12/02/22 13:15 Temperature Pulse Rate 61 Respiratory Rate 16 Blood Pressure 107/61 Pulse Oximetry 96 Oxygen Delivery Method Room Air Labs 11/22/22 11:55 Medications Medications Current Medications Acetaminophen (Acetaminophen 325 Mg Tablet) 650 mg PO Q6H PRN PRN Reason: Headache/Pain Mild Scale (1-3) Al Hydroxide/Mg Hydroxide (Magnesium Hydrox/Alum Hydrox 30 Ml Oral.Susp) 30 ml PO Q6H PRN PRN Reason: Heartburn/Nausea Artificial Tears (Artificial Tears 15 Ml Drops) 2 drop EYE-BOTH Q4H PRN PRN Reason: Dry Eyes Last Admin: 12/02/22 14:19 Dose: 2 drop Hydroxyzine HCl (Hydroxyzine Hcl 25 Mg Tablet) 25 mg PO Q6H PRN PRN Reason: Anxiety Lorazepam (Lorazepam 2 Mg/Ml Vial) 2 mg IVPUSH QID GABRIEL Last Admin: 12/02/22 13:25 Dose: 2 mg Magnesium Hydroxide (Milk Of Magnesia 30 Ml Oral.Susp) 30 ml PO DAILY PRN PRN Reason: Constipation Olanzapine (Olanzapine Odt 10 Mg Tab.Rapdis) 10 mg TRANSLINGU BEDTIME GABRIEL Last Admin: 12/01/22 22:09 Dose: Not Given Olanzapine (Olanzapine 10 Mg Vial) 2.5 mg IM BEDTIME PRN PRN Reason: refusal of PO Trazodone HCl (Trazodone Hcl 50 Mg Tablet) 50 mg PO BEDTIME PRN PRN Reason: Insomnia Allergies Allergies Allergy/AdvReac Type Severity Reaction Status Date / Time No Known Allergies Allergy Verified 10/31/22 14:47 Assessment & Plan Assessment & Plan (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 11/04: pt refusing meds and not taking anything PO. nevertheless appears slightly improved from yesterday, more verbal with less latency of response. advised to take meds and fluids. 11/05: ate and drank some last night. refusing meds. no longer grossly catatonic. continue current mgmt. 11/06: no PO intake in past 24H. refusing meds. parnell warning, 3-day up . 11/07: no food, had some water last night. recheck BMP. completed commitment paperwork. refusing meds. 11/08: denies eating or drinking but yesterday's breakfast tray was empty on return. commitment filed. refusing meds. 11/09: continues without PO intake, not attending to ADLs. refusing meds. hearing scheduled for next . labs from yesterday not indicative of concerning dehydration. 11/10 continue tx. more talkative, although guarded. No overt delusional content reported. denies SI/HI. 11/11: will order CMP for tomorrow morning given uncertainty ref PO intake 11/13: increase in BUN and Cr due to dehydration 11/14: continue tx. refuses medications but unable to provide explanation as to why not show understanding in terms of effects of decrease oral intake on renal function. 11/15: unchanged from last week. intermittent meals, BUN mildly elevated. court tomorrow. 11/16: court deferred for BEHZAD. no change in presentation. place on 1:1 for observation of PO intake. lying all day in bed, PMR, with shades drawn, for a darkened room. refusing medications. 11/17: DC olanzapine. offer SSRI. eating and drinking this morning, after having been put on 1:1. continue current mgmt. commitment hearing likely next . 11/18: refusing to look at or speak with MD. clearly ate and drank more yesterday, up and out of room more. nevertheless, spends vast majority of his time lying in bed in the dark. refusing meds. 11/19: ate more yesterday and last night. DC 1:1. appearing catatonic today, no eye blink staring at ceiling not responding. 11/20: moderate PO intake yesterday. appearing more catatonic today. continue to offer meds. 11/21: catatonic. no report on sleep or PO intake as pt is off 1:1. continue to offer meds. 11/22: catatonic. labs reassuring. court tomorrow. 11/23: catatonic. committed and ordered meds in court. 11/24: start ativan 2 mg TID with IM back-up for catatonia. plan to start neuroleptics and anti-depressants once catatonia improved. 11/25: decrease ativan to 1mg tid as he had no response to 2 mg and might be experiencing sedation from it 11/26: More alert on lower ativan dose but remains non-verbal and lying in bed 11/27 increase ativan back to 2mg po TID back up IM. 11/28: T/C gaining IV access to facilitate delivery of ativan; plan to increase to QID dosing. remains catatonic. case d/w nursing administration and medical receptionistprogram engagement director. 11/29: gain IV access today, start ativan 2 mg IV QID. was out of bed, eating and speaking yesterday evening. 11/30: 1:1 as he removed IV access, apparently. was up in kitchen getting food on evening shift. continue current mgmt. 12/01: up twice in the past 24H, ate some, swore that lights in his room had been turned on. T/C adding valium 2 mg TID IV (per court order, maximum of 8 mg ativan may be given per day) and/or antipsychotic to regimen. case D/W david. 12/02: Check comprehensive metabolic labs in AM. Continue current management. Reason for continued inpatient stay Substantial Risk for: harm to self, inability to function and rapid decompensation Time Spent With Patient Time: Total time managing care of this patient today ____ minutes.
[2022-12-02 16:23] VITALS: BP 108/61; PULSE 67; RESP 18; TEMP 36.6; O2SAT 96
[2022-12-02] MEDS: OLANZapine 10 MG VIAL 2.5 MG IM (21:11)
[2022-12-02 21:18] VITALS: BP 111/58; PULSE 70; RESP 18; TEMP 36.7; O2SAT 94
[2022-12-02 21:50] VITALS: BP 82/52; PULSE 60
[2022-12-03 08:00] VITALS: BP 107/69; PULSE 55; RESP 14; TEMP 36.6; O2SAT 98
[2022-12-03 08:43] LABS: Alanine Aminotransferase 20 U/L (0-40); Albumin Level 3.5 g/dL (3.5-5.0); Alkaline Phosphatase 47 U/L (39-117); Anion Gap 13 (12-20); Aspartate Amino Transferase 25 U/L (5-37); Bilirubin Total 0.5 mg/dL (0.0-1.0); Blood Urea Nitrogen 13 mg/dL (9-16); Calcium 9.3 mg/dL (8.4-10.2); Carbon Dioxide 24 mmol/L (22-29); Chloride 107 mmol/L (96-108); Estimated Glomerular Filt Rate > 60; Glucose Random 103 mg/dL (60-115); Potassium 4.8 mmol/L (3.3-5.1); Sodium 139 mmol/L (135-145); Total Protein 6.4 g/dL (6.5-8.0)
[2022-12-03] MEDS: LORazepam 2 MG/ML VIAL IVPUSH ×4 (08:49→21:47)
--- NOTE | 2022-12-03 10:58 | HO.PSYCHPN ---
Subjective Subjective Date of Service: 12/03/22 Reason For Visit: catatonia Interim History: More responsive today. He had refused his PO Zyprexa last night and received Zyprexa 2.5 mg IM. Today he was up. He was more conversant with 1:1. He ate his breakfast and then he said he is still hungry and asked for more food, even though he didn't eat it. He was seen in his room. He was sitting in bed and said that he feels OK. He was moving around. He was more responsive and communicated, although monosyllabically. Metabolic labs WNL. Review of Systems Review of Systems Yes Unobtainable due to mental status Mental Status Exam Mental Status Exam Narrative: Very poor self-care. found supine in bed, eyes open, not responsive to verbal prompts and questions. general PMR. not cooperative. affect masked. no SI/HI/AVH expressed. Insight and judgment appears limited Patient Appearance: Disheveled Patient Orientation: Person (mute) Level of Consciousness: Alert Patient Behavior: Isolative and Poor Eye Contact Behavior Comments: Lying in bed. Does not respond when addressed. Not following verbal commands Mood Description: Flat Affect Description: Withdrawn Patient Cognition Impaired: No Ability to Follow Directions: Poor Speech Pattern: No Speech Diagnostics Vital Signs (24Hr): Vital Signs - 24 hr 12/02/22 13:15 12/02/22 16:23 12/02/22 21:18 Temperature 97.9 F 98.0 F Pulse Rate 61 67 70 Respiratory Rate 16 18 18 Blood Pressure 107/61 108/61 111/58 L Pulse Oximetry 96 96 94 Oxygen Delivery Method Room Air Room Air Room Air 12/02/22 21:50 12/03/22 08:00 Temperature 97.9 F Pulse Rate 60 55 Respiratory Rate 14 Blood Pressure 82/52 L 107/69 Pulse Oximetry 98 Oxygen Delivery Method Room Air Labs 12/03/22 07:45 Labs: Laboratory Results - last 48 hr 12/03/22 07:45 Sodium 139 Potassium 4.8 Chloride 107 Carbon Dioxide 24 Anion Gap 13 BUN 13 Creatinine 0.73 Estim Creat Clear Calc TNP Estimated GFR > 60 Random Glucose 103 Calcium 9.3 D Total Bilirubin 0.5 AST 25 ALT 20 Alkaline Phosphatase 47 Total Protein 6.4 L Albumin 3.5 Medications Medications Current Medications Acetaminophen (Acetaminophen 325 Mg Tablet) 650 mg PO Q6H PRN PRN Reason: Headache/Pain Mild Scale (1-3) Al Hydroxide/Mg Hydroxide (Magnesium Hydrox/Alum Hydrox 30 Ml Oral.Susp) 30 ml PO Q6H PRN PRN Reason: Heartburn/Nausea Artificial Tears (Artificial Tears 15 Ml Drops) 2 drop EYE-BOTH Q4H PRN PRN Reason: Dry Eyes Last Admin: 12/02/22 14:19 Dose: 2 drop Hydroxyzine HCl (Hydroxyzine Hcl 25 Mg Tablet) 25 mg PO Q6H PRN PRN Reason: Anxiety Lorazepam (Lorazepam 2 Mg/Ml Vial) 2 mg IVPUSH QID GABRIEL Last Admin: 12/03/22 08:49 Dose: 2 mg Magnesium Hydroxide (Milk Of Magnesia 30 Ml Oral.Susp) 30 ml PO DAILY PRN PRN Reason: Constipation Olanzapine (Olanzapine Odt 10 Mg Tab.Rapdis) 10 mg TRANSLINGU BEDTIME [facility] Last Admin: 12/02/22 22:06 Dose: Not Given Olanzapine (Olanzapine 10 Mg Vial) 2.5 mg IM BEDTIME PRN PRN Reason: refusal of PO Last Admin: 12/02/22 21:11 Dose: 2.5 mg Trazodone HCl (Trazodone Hcl 50 Mg Tablet) 50 mg PO BEDTIME PRN PRN Reason: Insomnia Allergies Allergies Allergy/AdvReac Type Severity Reaction Status Date / Time No Known Allergies Allergy Verified 10/31/22 14:47 Assessment & Plan Assessment & Plan (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 11/04: pt refusing meds and not taking anything PO. nevertheless appears slightly improved from yesterday, more verbal with less latency of response. advised to take meds and fluids. 11/05: ate and drank some last night. refusing meds. no longer grossly catatonic. continue current mgmt. 11/06: no PO intake in past 24H. refusing meds. parnell warning, 3-day up . 11/07: no food, had some water last night. recheck BMP. completed commitment paperwork. refusing meds. 11/08: denies eating or drinking but yesterday's breakfast tray was empty on return. commitment filed. refusing meds. 11/09: continues without PO intake, not attending to ADLs. refusing meds. hearing scheduled for next . labs from yesterday not indicative of concerning dehydration. 11/10 continue tx. more talkative, although guarded. No overt delusional content reported. denies SI/HI. 11/11: will order CMP for tomorrow morning given uncertainty ref PO intake 11/13: increase in BUN and Cr due to dehydration 11/14: continue tx. refuses medications but unable to provide explanation as to why not show understanding in terms of effects of decrease oral intake on renal function. 11/15: unchanged from last week. intermittent meals, BUN mildly elevated. court tomorrow. 11/16: court deferred for BEHZAD. no change in presentation. place on 1:1 for observation of PO intake. lying all day in bed, PMR, with shades drawn, for a darkened room. refusing medications. 11/17: DC olanzapine. offer SSRI. eating and drinking this morning, after having been put on 1:1. continue current mgmt. commitment hearing likely next . 11/18: refusing to look at or speak with MD. clearly ate and drank more yesterday, up and out of room more. nevertheless, spends vast majority of his time lying in bed in the dark. refusing meds. 11/19: ate more yesterday and last night. DC 1:1. appearing catatonic today, no eye blink staring at ceiling not responding. 11/20: moderate PO intake yesterday. appearing more catatonic today. continue to offer meds. 11/21: catatonic. no report on sleep or PO intake as pt is off 1:1. continue to offer meds. 11/22: catatonic. labs reassuring. court tomorrow. 11/23: catatonic. committed and ordered meds in court. 11/24: start ativan 2 mg TID with IM back-up for catatonia. plan to start neuroleptics and anti-depressants once catatonia improved. 11/25: decrease ativan to 1mg tid as he had no response to 2 mg and might be experiencing sedation from it 11/26: More alert on lower ativan dose but remains non-verbal and lying in bed 11/27 increase ativan back to 2mg po TID back up IM. 11/28: T/C gaining IV access to facilitate delivery of ativan; plan to increase to QID dosing. remains catatonic. case d/w nursing administration and medical office asstdirector skills. 11/29: gain IV access today, start ativan 2 mg IV QID. was out of bed, eating and speaking yesterday evening. 11/30: 1:1 as he removed IV access, apparently. was up in kitchen getting food on evening shift. continue current mgmt. 12/01: up twice in the past 24H, ate some, swore that lights in his room had been turned on. T/C adding valium 2 mg TID IV (per court order, maximum of 8 mg ativan may be given per day) and/or antipsychotic to regimen. case D/W david. 12/02: Check comprehensive metabolic labs in AM. Continue current management. 12/03: Improved post IM dose of Zyprexa last night. Ate better. More communicative. Continue current plan of care. Reason for continued inpatient stay Substantial Risk for: harm to self, inability to function and rapid decompensation Time Spent With Patient Time: Total time managing care of this patient today ____ minutes.
[2022-12-03 12:20] VITALS: BP 115/62; PULSE 77; RESP 16
[2022-12-03 21:45] VITALS: BP 102/63; PULSE 84; RESP 16; TEMP 36.8; O2SAT 96
[2022-12-03] MEDS: OLANZapine 10 MG VIAL 2.5 MG IM (21:51)
[2022-12-03 22:15] VITALS: BP 98/57; PULSE 83; RESP 14; O2SAT 93
[2022-12-04 09:00] VITALS: BP 103/62; PULSE 64; RESP 18; TEMP 36.5; O2SAT 97
[2022-12-04] MEDS: LORazepam 2 MG/ML VIAL IVPUSH ×4 (10:35→22:07)
--- NOTE | 2022-12-04 14:24 | HO.PSYCHPN ---
Subjective Subjective Date of Service: 12/04/22 Reason For Visit: catatonia Interim History: same presentation days. per staff, sat up for breakfast yesterday and ate it all. some interactions with staff later in the day. ambulating periodically. up and about the unit more. Mental Status Exam Mental Status Exam Narrative: Very poor self-care. found supine in bed, eyes closed, not responsive to verbal prompts and questions. general PMR. not cooperative. affect masked. no SI/HI/AVH expressed. Insight and judgment appears limited Diagnostics Vital Signs (24Hr): Vital Signs - 24 hr 12/03/22 21:45 12/03/22 22:15 12/04/22 09:00 Temperature 98.2 F 97.7 F Pulse Rate 84 83 64 Respiratory Rate 16 14 18 Blood Pressure 102/63 98/57 L 103/62 Pulse Oximetry 96 93 97 Oxygen Delivery Method Room Air Room Air Room Air Labs 12/03/22 07:45 Labs: Laboratory Results - last 48 hr 12/03/22 07:45 Sodium 139 Potassium 4.8 Chloride 107 Carbon Dioxide 24 Anion Gap 13 BUN 13 Creatinine 0.73 Estim Creat Clear Calc TNP Estimated GFR > 60 Random Glucose 103 Calcium 9.3 D Total Bilirubin 0.5 AST 25 ALT 20 Alkaline Phosphatase 47 Total Protein 6.4 L Albumin 3.5 Medications Medications Current Medications Acetaminophen (Acetaminophen 325 Mg Tablet) 650 mg PO Q6H PRN PRN Reason: Headache/Pain Mild Scale (1-3) Al Hydroxide/Mg Hydroxide (Magnesium Hydrox/Alum Hydrox 30 Ml Oral.Susp) 30 ml PO Q6H PRN PRN Reason: Heartburn/Nausea Artificial Tears (Artificial Tears 15 Ml Drops) 2 drop EYE-BOTH Q4H PRN PRN Reason: Dry Eyes Last Admin: 12/02/22 14:19 Dose: 2 drop Hydroxyzine HCl (Hydroxyzine Hcl 25 Mg Tablet) 25 mg PO Q6H PRN PRN Reason: Anxiety Lorazepam (Lorazepam 2 Mg/Ml Vial) 2 mg IVPUSH QID [facility] Magnesium Hydroxide (Milk Of Magnesia 30 Ml Oral.Susp) 30 ml PO DAILY PRN PRN Reason: Constipation Olanzapine (Olanzapine Odt 10 Mg Tab.Rapdis) 10 mg TRANSLINGU BEDTIME [facility] Last Admin: 12/03/22 21:28 Dose: Not Given Olanzapine (Olanzapine 10 Mg Vial) 5 mg IM BEDTIME PRN PRN Reason: refusal of PO Trazodone HCl (Trazodone Hcl 50 Mg Tablet) 50 mg PO BEDTIME PRN PRN Reason: Insomnia Allergies Allergies Allergy/AdvReac Type Severity Reaction Status Date / Time No Known Allergies Allergy Verified 10/31/22 14:47 Assessment & Plan Assessment & Plan (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 11/04: pt refusing meds and not taking anything PO. nevertheless appears slightly improved from yesterday, more verbal with less latency of response. advised to take meds and fluids. 11/05: ate and drank some last night. refusing meds. no longer grossly catatonic. continue current mgmt. 11/06: no PO intake in past 24H. refusing meds. parnell warning, 3-day up . 11/07: no food, had some water last night. recheck BMP. completed commitment paperwork. refusing meds. 11/08: denies eating or drinking but yesterday's breakfast tray was empty on return. commitment filed. refusing meds. 11/09: continues without PO intake, not attending to ADLs. refusing meds. hearing scheduled for next . labs from yesterday not indicative of concerning dehydration. 11/10 continue tx. more talkative, although guarded. No overt delusional content reported. denies SI/HI. 11/11: will order CMP for tomorrow morning given uncertainty ref PO intake 11/13: increase in BUN and Cr due to dehydration 11/14: continue tx. refuses medications but unable to provide explanation as to why not show understanding in terms of effects of decrease oral intake on renal function. 11/15: unchanged from last week. intermittent meals, BUN mildly elevated. court tomorrow. 11/16: court deferred for BEHZAD. no change in presentation. place on 1:1 for observation of PO intake. lying all day in bed, PMR, with shades drawn, for a darkened room. refusing medications. 11/17: DC olanzapine. offer SSRI. eating and drinking this morning, after having been put on 1:1. continue current mgmt. commitment hearing likely next . 11/18: refusing to look at or speak with MD. clearly ate and drank more yesterday, up and out of room more. nevertheless, spends vast majority of his time lying in bed in the dark. refusing meds. 11/19: ate more yesterday and last night. DC 1:1. appearing catatonic today, no eye blink staring at ceiling not responding. 11/20: moderate PO intake yesterday. appearing more catatonic today. continue to offer meds. 11/21: catatonic. no report on sleep or PO intake as pt is off 1:1. continue to offer meds. 11/22: catatonic. labs reassuring. court tomorrow. 11/23: catatonic. committed and ordered meds in court. 11/24: start ativan 2 mg TID with IM back-up for catatonia. plan to start neuroleptics and anti-depressants once catatonia improved. 11/25: decrease ativan to 1mg tid as he had no response to 2 mg and might be experiencing sedation from it 11/26: More alert on lower ativan dose but remains non-verbal and lying in bed 11/27 increase ativan back to 2mg po TID back up IM. 11/28: T/C gaining IV access to facilitate delivery of ativan; plan to increase to QID dosing. remains catatonic. case d/w nursing administration and vice president medical affairsdirector non profit. 11/29: gain IV access today, start ativan 2 mg IV QID. was out of bed, eating and speaking yesterday evening. 11/30: 1:1 as he removed IV access, apparently. was up in kitchen getting food on evening shift. continue current mgmt. 12/01: up twice in the past 24H, ate some, swore that lights in his room had been turned on. T/C adding valium 2 mg TID IV (per court order, maximum of 8 mg ativan may be given per day) and/or antipsychotic to regimen. case D/W david. 12/02: Check comprehensive metabolic labs in AM. Continue current management. 12/03: Improved post IM dose of Zyprexa last night. Ate better. More communicative. Continue current plan of care. 12/04: some improvement over w/e. increase IM zyprexa t HS to 5 mg each. continue current mgmt. Reason for continued inpatient stay Substantial Risk for: harm to self and inability to function Time Spent With Patient Time: Total time managing care of this patient today __25__ minutes.
--- NOTE | 2022-12-04 20:24 | PC.NURSE ---
IV Ativan administered without resistance. Hep lock L hand, line flushed without resistance, no sx of infiltrate, no c/o pain.
[2022-12-04 22:04] VITALS: BP 102/59; PULSE 87; TEMP 37; O2SAT 95
[2022-12-04] MEDS: OLANZapine 10 MG VIAL 5 MG IM (22:08)
[2022-12-05] VITALS (7 sets, daily range): BP systolic 101–119; BP diastolic 55–72; PULSE 73–82; RESP 16–18; TEMP 36.6–36.8; O2SAT 95–97
[2022-12-05] MEDS: LORazepam 2 MG/ML VIAL IVPUSH ×4 (09:20→20:57)
--- NOTE | 2022-12-05 14:36 | PC.NURSE ---
IV port #22 left hand intact, flushed and med given without resistance. Dangelo had his eyes open during 0900 and 1300 dose, however he did not respond to this medical underwriter.
--- NOTE | 2022-12-05 15:22 | HO.PSYCHPN ---
Subjective Subjective Date of Service: 12/05/22 Reason For Visit: catatonia Interim History: no change in presentation. per staff, mostly staring and not responding. was OOB X2 during days yesterday, observed seated on the edge of his bed eating dinner. reza RN reported having a full conversation with him. Mental Status Exam Mental Status Exam Narrative: Very poor self-care. found supine in bed, eyes closed, not responsive to verbal prompts and questions. general PMR. not cooperative. affect masked. no SI/HI/AVH expressed. Insight and judgment appears limited Diagnostics Vital Signs (24Hr): Vital Signs - 24 hr 12/04/22 22:04 12/05/22 09:15 12/05/22 10:00 Temperature 98.6 F 97.9 F 98.0 F Pulse Rate 87 82 73 Respiratory Rate 18 18 Blood Pressure 102/59 L 101/60 108/55 L Pulse Oximetry 95 97 97 Oxygen Delivery Method Room Air Room Air Room Air 12/05/22 13:30 12/05/22 14:00 Temperature 98.1 F 98.3 F Pulse Rate 74 80 Respiratory Rate 18 18 Blood Pressure 115/66 119/72 Pulse Oximetry 97 97 Oxygen Delivery Method Room Air Room Air Labs 12/03/22 07:45 Medications Medications Current Medications Acetaminophen (Acetaminophen 325 Mg Tablet) 650 mg PO Q6H PRN PRN Reason: Headache/Pain Mild Scale (1-3) Al Hydroxide/Mg Hydroxide (Magnesium Hydrox/Alum Hydrox 30 Ml Oral.Susp) 30 ml PO Q6H PRN PRN Reason: Heartburn/Nausea Artificial Tears (Artificial Tears 15 Ml Drops) 2 drop EYE-BOTH Q4H PRN PRN Reason: Dry Eyes Last Admin: 12/02/22 14:19 Dose: 2 drop Hydroxyzine HCl (Hydroxyzine Hcl 25 Mg Tablet) 25 mg PO Q6H PRN PRN Reason: Anxiety Lorazepam (Lorazepam 2 Mg/Ml Vial) 2 mg IVPUSH QID [facility] Last Admin: 12/05/22 13:35 Dose: 2 mg Magnesium Hydroxide (Milk Of Magnesia 30 Ml Oral.Susp) 30 ml PO DAILY PRN PRN Reason: Constipation Olanzapine (Olanzapine Odt 10 Mg Tab.Rapdis) 10 mg TRANSLINGU BEDTIME [facility] Last Admin: 12/04/22 22:09 Dose: Not Given Olanzapine (Olanzapine 10 Mg Vial) 5 mg IM BEDTIME PRN PRN Reason: refusal of PO Last Admin: 12/04/22 22:08 Dose: 5 mg Trazodone HCl (Trazodone Hcl 50 Mg Tablet) 50 mg PO BEDTIME PRN PRN Reason: Insomnia Allergies Allergies Allergy/AdvReac Type Severity Reaction Status Date / Time No Known Allergies Allergy Verified 10/31/22 14:47 Assessment & Plan Assessment & Plan (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 11/04: pt refusing meds and not taking anything PO. nevertheless appears slightly improved from yesterday, more verbal with less latency of response. advised to take meds and fluids. 11/05: ate and drank some last night. refusing meds. no longer grossly catatonic. continue current mgmt. 11/06: no PO intake in past 24H. refusing meds. parnell warning, 3-day up . 11/07: no food, had some water last night. recheck BMP. completed commitment paperwork. refusing meds. 11/08: denies eating or drinking but yesterday's breakfast tray was empty on return. commitment filed. refusing meds. 11/09: continues without PO intake, not attending to ADLs. refusing meds. hearing scheduled for next . labs from yesterday not indicative of concerning dehydration. 11/10 continue tx. more talkative, although guarded. No overt delusional content reported. denies SI/HI. 11/11: will order CMP for tomorrow morning given uncertainty ref PO intake 11/13: increase in BUN and Cr due to dehydration 11/14: continue tx. refuses medications but unable to provide explanation as to why not show understanding in terms of effects of decrease oral intake on renal function. 11/15: unchanged from last week. intermittent meals, BUN mildly elevated. court tomorrow. 11/16: court deferred for BEHZAD. no change in presentation. place on 1:1 for observation of PO intake. lying all day in bed, PMR, with shades drawn, for a darkened room. refusing medications. 11/17: DC olanzapine. offer SSRI. eating and drinking this morning, after having been put on 1:1. continue current mgmt. commitment hearing likely next . 11/18: refusing to look at or speak with MD. clearly ate and drank more yesterday, up and out of room more. nevertheless, spends vast majority of his time lying in bed in the dark. refusing meds. 11/19: ate more yesterday and last night. DC 1:1. appearing catatonic today, no eye blink staring at ceiling not responding. 11/20: moderate PO intake yesterday. appearing more catatonic today. continue to offer meds. 11/21: catatonic. no report on sleep or PO intake as pt is off 1:1. continue to offer meds. 11/22: catatonic. labs reassuring. court tomorrow. 11/23: catatonic. committed and ordered meds in court. 11/24: start ativan 2 mg TID with IM back-up for catatonia. plan to start neuroleptics and anti-depressants once catatonia improved. 11/25: decrease ativan to 1mg tid as he had no response to 2 mg and might be experiencing sedation from it 11/26: More alert on lower ativan dose but remains non-verbal and lying in bed 11/27 increase ativan back to 2mg po TID back up IM. 11/28: T/C gaining IV access to facilitate delivery of ativan; plan to increase to QID dosing. remains catatonic. case d/w nursing administration and medical record librarians teacherdirector payer. 11/29: gain IV access today, start ativan 2 mg IV QID. was out of bed, eating and speaking yesterday evening. 11/30: 1:1 as he removed IV access, apparently. was up in kitchen getting food on evening shift. continue current mgmt. 12/01: up twice in the past 24H, ate some, swore that lights in his room had been turned on. T/C adding valium 2 mg TID IV (per court order, maximum of 8 mg ativan may be given per day) and/or antipsychotic to regimen. case D/W david. 12/02: Check comprehensive metabolic labs in AM. Continue current management. 12/03: Improved post IM dose of Zyprexa last night. Ate better. More communicative. Continue current plan of care. 12/04: some improvement over w/e. increase IM zyprexa t HS to 5 mg each. continue current mgmt. 12/05: continue current mgmt. up several times yesterday, had conversation with reza nurse, observed eating dinner. Reason for continued inpatient stay Substantial Risk for: harm to self, inability to function and rapid decompensation Time Spent With Patient Time: Total time managing care of this patient today ____ minutes.
--- NOTE | 2022-12-06 04:26 | PC.NURSE ---
RN administered IV ativan but did not administer prn IM Zyprexa at the time because it was not due and patient appeared sleepy/lethargic. Patient was non verbal, did not respond to name but appeared to be aware of situation when RN explained he was taking blood pressure and patient held out his arm. Patient also shook his head no when asked if he would take any oral medications. Patient was otherwise staring at the ceiling or appeared to be sleeping.
[2022-12-06 09:21] VITALS: BP 94/55; PULSE 54; RESP 18; TEMP 36.4; O2SAT 97
[2022-12-06] MEDS: LORazepam 2 MG/ML VIAL IVPUSH ×4 (09:23→21:25)
--- NOTE | 2022-12-06 12:41 | HO.PSYCHPN ---
Subjective Subjective Date of Service: 12/06/22 Reason For Visit: catatonia Interim History: no change in presentation; lying in bed eyes open staring at ceiling, not responsive. did not eat breakfast yesterday. in bed, staring. i'm good to staff at one point. not verbal NOC shift. did not receive IM zyprexa last night. Mental Status Exam Mental Status Exam Narrative: Very poor self-care. found supine in bed, eyes open, not responsive to verbal prompts and questions. general PMR. not cooperative. affect masked. no SI/HI/AVH expressed. Insight and judgment appears limited Diagnostics Vital Signs (24Hr): Vital Signs - 24 hr 12/05/22 13:30 12/05/22 14:00 12/05/22 18:00 Temperature 98.1 F 98.3 F Pulse Rate 74 80 75 Respiratory Rate 18 18 Blood Pressure 115/66 119/72 115/57 L Pulse Oximetry 97 97 Oxygen Delivery Method Room Air Room Air 12/05/22 19:35 12/05/22 21:12 12/06/22 09:21 Temperature 98.0 F 97.6 F Pulse Rate 75 76 54 Respiratory Rate 16 18 Blood Pressure 108/55 L 104/55 L 94/55 L Pulse Oximetry 95 97 Oxygen Delivery Method Room Air Room Air Labs 12/03/22 07:45 Medications Medications Current Medications Acetaminophen (Acetaminophen 325 Mg Tablet) 650 mg PO Q6H PRN PRN Reason: Headache/Pain Mild Scale (1-3) Al Hydroxide/Mg Hydroxide (Magnesium Hydrox/Alum Hydrox 30 Ml Oral.Susp) 30 ml PO Q6H PRN PRN Reason: Heartburn/Nausea Artificial Tears (Artificial Tears 15 Ml Drops) 2 drop EYE-BOTH Q4H PRN PRN Reason: Dry Eyes Last Admin: 12/02/22 14:19 Dose: 2 drop Hydroxyzine HCl (Hydroxyzine Hcl 25 Mg Tablet) 25 mg PO Q6H PRN PRN Reason: Anxiety Lorazepam (Lorazepam 2 Mg/Ml Vial) 2 mg IVPUSH QID [facility] Last Admin: 12/06/22 09:23 Dose: 2 mg Magnesium Hydroxide (Milk Of Magnesia 30 Ml Oral.Susp) 30 ml PO DAILY PRN PRN Reason: Constipation Olanzapine (Olanzapine Odt 10 Mg Tab.Rapdis) 10 mg TRANSLINGU BEDTIME [facility] Last Admin: 12/05/22 23:00 Dose: Not Given Olanzapine (Olanzapine 10 Mg Vial) 5 mg IM BEDTIME PRN PRN Reason: refusal of PO Last Admin: 12/04/22 22:08 Dose: 5 mg Trazodone HCl (Trazodone Hcl 50 Mg Tablet) 50 mg PO BEDTIME PRN PRN Reason: Insomnia Allergies Allergies Allergy/AdvReac Type Severity Reaction Status Date / Time No Known Allergies Allergy Verified 10/31/22 14:47 Assessment & Plan Assessment & Plan (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 11/04: pt refusing meds and not taking anything PO. nevertheless appears slightly improved from yesterday, more verbal with less latency of response. advised to take meds and fluids. 11/05: ate and drank some last night. refusing meds. no longer grossly catatonic. continue current mgmt. 11/06: no PO intake in past 24H. refusing meds. parnell warning, 3-day up . 11/07: no food, had some water last night. recheck BMP. completed commitment paperwork. refusing meds. 11/08: denies eating or drinking but yesterday's breakfast tray was empty on return. commitment filed. refusing meds. 11/09: continues without PO intake, not attending to ADLs. refusing meds. hearing scheduled for next . labs from yesterday not indicative of concerning dehydration. 11/10 continue tx. more talkative, although guarded. No overt delusional content reported. denies SI/HI. 11/11: will order CMP for tomorrow morning given uncertainty ref PO intake 11/13: increase in BUN and Cr due to dehydration 11/14: continue tx. refuses medications but unable to provide explanation as to why not show understanding in terms of effects of decrease oral intake on renal function. 11/15: unchanged from last week. intermittent meals, BUN mildly elevated. court tomorrow. 11/16: court deferred for BEHZAD. no change in presentation. place on 1:1 for observation of PO intake. lying all day in bed, PMR, with shades drawn, for a darkened room. refusing medications. 11/17: DC olanzapine. offer SSRI. eating and drinking this morning, after having been put on 1:1. continue current mgmt. commitment hearing likely next . 11/18: refusing to look at or speak with MD. clearly ate and drank more yesterday, up and out of room more. nevertheless, spends vast majority of his time lying in bed in the dark. refusing meds. 11/19: ate more yesterday and last night. DC 1:1. appearing catatonic today, no eye blink staring at ceiling not responding. 11/20: moderate PO intake yesterday. appearing more catatonic today. continue to offer meds. 11/21: catatonic. no report on sleep or PO intake as pt is off 1:1. continue to offer meds. 11/22: catatonic. labs reassuring. court tomorrow. 11/23: catatonic. committed and ordered meds in court. 11/24: start ativan 2 mg TID with IM back-up for catatonia. plan to start neuroleptics and anti-depressants once catatonia improved. 11/25: decrease ativan to 1mg tid as he had no response to 2 mg and might be experiencing sedation from it 11/26: More alert on lower ativan dose but remains non-verbal and lying in bed 11/27 increase ativan back to 2mg po TID back up IM. 11/28: T/C gaining IV access to facilitate delivery of ativan; plan to increase to QID dosing. remains catatonic. case d/w nursing administration and medical device sales consultantdirector of cardiology service line. 11/29: gain IV access today, start ativan 2 mg IV QID. was out of bed, eating and speaking yesterday evening. 11/30: 1:1 as he removed IV access, apparently. was up in kitchen getting food on evening shift. continue current mgmt. 12/01: up twice in the past 24H, ate some, swore that lights in his room had been turned on. T/C adding valium 2 mg TID IV (per court order, maximum of 8 mg ativan may be given per day) and/or antipsychotic to regimen. case D/W david. 12/02: Check comprehensive metabolic labs in AM. Continue current management. 12/03: Improved post IM dose of Zyprexa last night. Ate better. More communicative. Continue current plan of care. 12/04: some improvement over w/e. increase IM zyprexa t HS to 5 mg each. continue current mgmt. 12/05: continue current mgmt. up several times yesterday, had conversation with reza nurse, observed eating dinner. 12/06: less active yesterday. did not receive IM zyprexa last night. continue current mgmt. Reason for continued inpatient stay Substantial Risk for: harm to self, inability to function and rapid decompensation Time Spent With Patient Time: Total time managing care of this patient today ____ minutes.
[2022-12-06 20:35] VITALS: BP 111/61; PULSE 66; RESP 18; TEMP 36.7; O2SAT 95
[2022-12-06] MEDS: OLANZapine 10 MG VIAL 5 MG IM (21:30)
[2022-12-06 21:48] VITALS: BP 109/59; PULSE 62
[2022-12-07] VITALS (8 sets, daily range): BP systolic 100–111; BP diastolic 58–72; PULSE 60–92; RESP 16; TEMP 36.4; O2SAT 93–96
[2022-12-07] MEDS: LORazepam 2 MG/ML VIAL IVPUSH ×4 (09:11→22:54)
--- NOTE | 2022-12-07 13:55 | HO.PSYCHPN ---
Subjective Subjective Date of Service: 12/07/22 Reason For Visit: catatonia Interim History: found seated at his desk eating breakfast. indicated he has a depressed mood and is feeling better because he is out of bed. discussed starting antidepressant, a proposal to which he offered no objection. has no questions, concerns, or complaints. later observed ambulating on the unit. per staff, responded to morning assessment questions yesterday. refused meals, not interacting otherwise yesterday. Mental Status Exam Mental Status Exam Narrative: Very poor self-care. found seated at his desk eating breakfast. general PMR. cooperative. affect masked. mood depressed. no SI/HI/AVH expressed. Insight and judgment appears limited Diagnostics Vital Signs (24Hr): Vital Signs - 24 hr 12/06/22 20:35 12/06/22 21:48 12/07/22 06:00 Temperature 98.0 F Pulse Rate 66 62 60 Respiratory Rate 18 Blood Pressure 111/61 109/59 L 106/66 Pulse Oximetry 95 96 Oxygen Delivery Method Room Air 12/07/22 10:04 12/07/22 12:54 Temperature Pulse Rate 61 Respiratory Rate Blood Pressure 107/63 111/68 Pulse Oximetry 93 Oxygen Delivery Method Room Air Labs 12/03/22 07:45 Medications Medications Current Medications Acetaminophen (Acetaminophen 325 Mg Tablet) 650 mg PO Q6H PRN PRN Reason: Headache/Pain Mild Scale (1-3) Al Hydroxide/Mg Hydroxide (Magnesium Hydrox/Alum Hydrox 30 Ml Oral.Susp) 30 ml PO Q6H PRN PRN Reason: Heartburn/Nausea Artificial Tears (Artificial Tears 15 Ml Drops) 2 drop EYE-BOTH Q4H PRN PRN Reason: Dry Eyes Last Admin: 12/02/22 14:19 Dose: 2 drop Hydroxyzine HCl (Hydroxyzine Hcl 25 Mg Tablet) 25 mg PO Q6H PRN PRN Reason: Anxiety Lorazepam (Lorazepam 2 Mg/Ml Vial) 2 mg IVPUSH QID G[facility] Last Admin: 12/07/22 12:58 Dose: 2 mg Magnesium Hydroxide (Milk Of Magnesia 30 Ml Oral.Susp) 30 ml PO DAILY PRN PRN Reason: Constipation Olanzapine (Olanzapine Odt 10 Mg Tab.Rapdis) 10 mg TRANSLINGU BEDTIME [facility] Last Admin: 12/06/22 22:04 Dose: Not Given Olanzapine (Olanzapine 10 Mg Vial) 5 mg IM BEDTIME PRN PRN Reason: refusal of PO Last Admin: 12/06/22 21:30 Dose: 5 mg Trazodone HCl (Trazodone Hcl 50 Mg Tablet) 50 mg PO BEDTIME PRN PRN Reason: Insomnia Allergies Allergies Allergy/AdvReac Type Severity Reaction Status Date / Time No Known Allergies Allergy Verified 10/31/22 14:47 Assessment & Plan Assessment & Plan (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 11/04: pt refusing meds and not taking anything PO. nevertheless appears slightly improved from yesterday, more verbal with less latency of response. advised to take meds and fluids. 11/05: ate and drank some last night. refusing meds. no longer grossly catatonic. continue current mgmt. 11/06: no PO intake in past 24H. refusing meds. parnell warning, 3-day up . 11/07: no food, had some water last night. recheck BMP. completed commitment paperwork. refusing meds. 11/08: denies eating or drinking but yesterday's breakfast tray was empty on return. commitment filed. refusing meds. 11/09: continues without PO intake, not attending to ADLs. refusing meds. hearing scheduled for next . labs from yesterday not indicative of concerning dehydration. 11/10 continue tx. more talkative, although guarded. No overt delusional content reported. denies SI/HI. 11/11: will order CMP for tomorrow morning given uncertainty ref PO intake 11/13: increase in BUN and Cr due to dehydration 11/14: continue tx. refuses medications but unable to provide explanation as to why not show understanding in terms of effects of decrease oral intake on renal function. 11/15: unchanged from last week. intermittent meals, BUN mildly elevated. court tomorrow. 11/16: court deferred for BEHZAD. no change in presentation. place on 1:1 for observation of PO intake. lying all day in bed, PMR, with shades drawn, for a darkened room. refusing medications. 11/17: DC olanzapine. offer SSRI. eating and drinking this morning, after having been put on 1:1. continue current mgmt. commitment hearing likely next . 11/18: refusing to look at or speak with MD. clearly ate and drank more yesterday, up and out of room more. nevertheless, spends vast majority of his time lying in bed in the dark. refusing meds. 11/19: ate more yesterday and last night. DC 1:1. appearing catatonic today, no eye blink staring at ceiling not responding. 11/20: moderate PO intake yesterday. appearing more catatonic today. continue to offer meds. 11/21: catatonic. no report on sleep or PO intake as pt is off 1:1. continue to offer meds. 11/22: catatonic. labs reassuring. court tomorrow. 11/23: catatonic. committed and ordered meds in court. 11/24: start ativan 2 mg TID with IM back-up for catatonia. plan to start neuroleptics and anti-depressants once catatonia improved. 11/25: decrease ativan to 1mg tid as he had no response to 2 mg and might be experiencing sedation from it 11/26: More alert on lower ativan dose but remains non-verbal and lying in bed 11/27 increase ativan back to 2mg po TID back up IM. 11/28: T/C gaining IV access to facilitate delivery of ativan; plan to increase to QID dosing. remains catatonic. case d/w nursing administration and medical office receptionist assistantmontessori program director. 11/29: gain IV access today, start ativan 2 mg IV QID. was out of bed, eating and speaking yesterday evening. 11/30: 1:1 as he removed IV access, apparently. was up in kitchen getting food on evening shift. continue current mgmt. 12/01: up twice in the past 24H, ate some, swore that lights in his room had been turned on. T/C adding valium 2 mg TID IV (per court order, maximum of 8 mg ativan may be given per day) and/or antipsychotic to regimen. case D/W david. 12/02: Check comprehensive metabolic labs in AM. Continue current management. 12/03: Improved post IM dose of Zyprexa last night. Ate better. More communicative. Continue current plan of care. 12/04: some improvement over w/e. increase IM zyprexa t HS to 5 mg each. continue current mgmt. 12/05: continue current mgmt. up several times yesterday, had conversation with reza nurse, observed eating dinner. 12/06: less active yesterday. did not receive IM zyprexa last night. continue current mgmt. 12/07: received zyprexa IM last night. up for breakfast this morning, exchanged some words with MD for first time in weeks. indicated he has a depressed mood. not opposed to anti-depressant. will start prozac liquid daily. Reason for continued inpatient stay Substantial Risk for: harm to self, inability to function and rapid decompensation Time Spent With Patient Time: Total time managing care of this patient today __25__ minutes.
[2022-12-07] MEDS: OLANZapine 10 MG VIAL 5 MG IM (23:04)
[2022-12-08] VITALS (7 sets, daily range): BP systolic 89–114; BP diastolic 50–63; PULSE 63–74; RESP 14–16; TEMP 36.4–36.7; O2SAT 94–97
[2022-12-08] MEDS: LORazepam 2 MG/ML VIAL IVPUSH ×4 (10:11→23:15)
--- NOTE | 2022-12-08 13:33 | P.PNPSI_ITS ---
Subjective Subjective Date of Service: 12/08/22 Reason For Visit: catatonia Interim History: lying in bed, not responsive. no change in presentation from the usual today. per staff, isolative. extended his arm for VS for the first time. variable ability to engage/respond throughout the day. NOC shift spoke a little. Mental Status Exam Mental Status Exam Narrative: Very poor self-care. found lying in bed motionless. not cooperative. affect masked. mood not assessed. no SI/HI/AVH expressed. Insight and judgment appears limited Diagnostics Vital Signs (24Hr): Vital Signs - 24 hr 12/07/22 14:00 12/07/22 16:03 12/07/22 17:15 Temperature Pulse Rate Respiratory Rate Blood Pressure 108/72 107/60 106/64 Pulse Oximetry 95 Oxygen Delivery Method Room Air 12/07/22 21:44 12/07/22 23:30 12/08/22 06:00 Temperature 97.6 F 98.1 F Pulse Rate 86 92 63 Respiratory Rate 16 16 Blood Pressure 109/58 L 100/58 L 101/62 Pulse Oximetry 95 97 Oxygen Delivery Method Room Air Room Air 12/08/22 10:50 Temperature 97.9 F Pulse Rate 63 Respiratory Rate 16 Blood Pressure 114/59 L Pulse Oximetry 96 Oxygen Delivery Method Room Air Labs 12/03/22 07:45 Medications Medications Current Medications Acetaminophen (Acetaminophen 325 Mg Tablet) 650 mg PO Q6H PRN PRN Reason: Headache/Pain Mild Scale (1-3) Al Hydroxide/Mg Hydroxide (Magnesium Hydrox/Alum Hydrox 30 Ml Oral.Susp) 30 ml PO Q6H PRN PRN Reason: Heartburn/Nausea Artificial Tears (Artificial Tears 15 Ml Drops) 2 drop EYE-BOTH Q4H PRN PRN Reason: Dry Eyes Last Admin: 12/02/22 14:19 Dose: 2 drop Fluoxetine HCl (Fluoxetine Hcl Oral Solution 20 Mg/5 Ml Solution) 20 mg PO DAILY [facility] Last Admin: 12/08/22 09:56 Dose: Not Given Hydroxyzine HCl (Hydroxyzine Hcl 25 Mg Tablet) 25 mg PO Q6H PRN PRN Reason: Anxiety Lorazepam (Lorazepam 2 Mg/Ml Vial) 2 mg IVPUSH QID [facility] Last Admin: 12/08/22 10:11 Dose: 2 mg Magnesium Hydroxide (Milk Of Magnesia 30 Ml Oral.Susp) 30 ml PO DAILY PRN PRN Reason: Constipation Olanzapine (Olanzapine Odt 10 Mg Tab.Rapdis) 10 mg TRANSLINGU BEDTIME [facility] Last Admin: 12/07/22 23:04 Dose: Not Given Olanzapine (Olanzapine 10 Mg Vial) 5 mg IM BEDTIME PRN PRN Reason: refusal of PO Last Admin: 12/07/22 23:04 Dose: 5 mg Trazodone HCl (Trazodone Hcl 50 Mg Tablet) 50 mg PO BEDTIME PRN PRN Reason: Insomnia Allergies Allergies Allergy/AdvReac Type Severity Reaction Status Date / Time No Known Allergies Allergy Verified 10/31/22 14:47 Assessment & Plan Assessment & Plan (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 11/04: pt refusing meds and not taking anything PO. nevertheless appears slightly improved from yesterday, more verbal with less latency of response. advised to take meds and fluids. 11/05: ate and drank some last night. refusing meds. no longer grossly catatonic. continue current mgmt. 11/06: no PO intake in past 24H. refusing meds. parnell warning, 3-day up . 11/07: no food, had some water last night. recheck BMP. completed commitment paperwork. refusing meds. 11/08: denies eating or drinking but yesterday's breakfast tray was empty on return. commitment filed. refusing meds. 11/09: continues without PO intake, not attending to ADLs. refusing meds. hearing scheduled for next . labs from yesterday not indicative of concerning dehydration. 11/10 continue tx. more talkative, although guarded. No overt delusional content reported. denies SI/HI. 11/11: will order CMP for tomorrow morning given uncertainty ref PO intake 11/13: increase in BUN and Cr due to dehydration 11/14: continue tx. refuses medications but unable to provide explanation as to why not show understanding in terms of effects of decrease oral intake on renal function. 11/15: unchanged from last week. intermittent meals, BUN mildly elevated. court tomorrow. 11/16: court deferred for BEHZAD. no change in presentation. place on 1:1 for observation of PO intake. lying all day in bed, PMR, with shades drawn, for a darkened room. refusing medications. 11/17: DC olanzapine. offer SSRI. eating and drinking this morning, after simpson ving been put on 1:1. continue current mgmt. commitment hearing likely next . 11/18: refusing to look at or speak with MD. clearly ate and drank more yesterday, up and out of room more. nevertheless, spends vast majority of his time lying in bed in the dark. refusing meds. 11/19: ate more yesterday and last night. DC 1:1. appearing catatonic today, no eye blink staring at ceiling not responding. 11/20: moderate PO intake yesterday. appearing more catatonic today. continue to offer meds. 11/21: catatonic. no report on sleep or PO intake as pt is off 1:1. continue to offer meds. 11/22: catatonic. labs reassuring. court tomorrow. 11/23: catatonic. committed and ordered meds in court. 11/24: start ativan 2 mg TID with IM back-up for catatonia. plan to start neuroleptics and anti-depressants once catatonia improved. 11/25: decrease ativan to 1mg tid as he had no response to 2 mg and might be experiencing sedation from it 11/26: More alert on lower ativan dose but remains non-verbal and lying in bed 11/27 increase ativan back to 2mg po TID back up IM. 11/28: T/C gaining IV access to facilitate delivery of ativan; plan to increase to QID dosing. remains catatonic. case d/w nursing administration and senior medical transcriptionistdirector of business applications. 11/29: gain IV access today, start ativan 2 mg IV QID. was out of bed, eating and speaking yesterday evening. 11/30: 1:1 as he removed IV access, apparently. was up in kitchen getting food on evening shift. continue current mgmt. 12/01: up twice in the past 24H, ate some, swore that lights in his room had been turned on. T/C adding valium 2 mg TID IV (per court order, maximum of 8 mg ativan may be given per day) and/or antipsychotic to regimen. case D/W david. 12/02: Check comprehensive metabolic labs in AM. Continue current management. 12/03: Improved post IM dose of Zyprexa last night. Ate better. More communicative. Continue current plan of care. 12/04: some improvement over w/e. increase IM zyprexa t HS to 5 mg each. continue current mgmt. 12/05: continue current mgmt. up several times yesterday, had conversation with reza nurse, observed eating dinner. 12/06: less active yesterday. did not receive IM zyprexa last night. continue current mgmt. 12/07: received zyprexa IM last night. up for breakfast this morning, exchanged some words with MD for first time in weeks. indicated he has a depressed mood. not opposed to anti-depressant. will start prozac liquid daily. 12/08: lying in bed, not responsive. several interactions with staff yesterday, limited and often non-verbal. refused PO prozac. continue current mgmt. Reason for continued inpatient stay Substantial Risk for: inability to function and rapid decompensation Time Spent With Patient Time: Total time managing care of this patient today ____ minutes.
[2022-12-08] MEDS: OLANZapine 10 MG VIAL 5 MG IM (22:18)
--- NOTE | 2022-12-08 23:18 | PC.NURSE ---
IV push done my nursing steam fitter supervisor Wendi. Had difficulty logging in to computer system on [employer]. This nurse stood next to her and observed event.
--- NOTE | 2022-12-08 23:24 | PC.NURSE ---
Hep lock placed in right hand.
[2022-12-09] VITALS (8 sets, daily range): BP systolic 81–107; BP diastolic 42–59; PULSE 60–82; RESP 14–16; TEMP 36.2–36.6; O2SAT 93–94
[2022-12-09] MEDS: LORazepam 2 MG/ML VIAL IVPUSH ×4 (08:47→22:14)
--- NOTE | 2022-12-09 11:31 | P.PNPSI_ITS ---
Subjective Subjective Date of Service: 12/09/22 Reason For Visit: catatonia Interim History: The nursing staff reported the patient has been in his room, isolative refusing medications, he has not attend to groups and he has not respond 20 stimuli. His IV line needed to be replaced last night. On interview the patient was despondent, refused to elaborate selectively mute. Mental Status Exam Mental Status Exam Patient Appearance: Inappropriate and Unkempt Patient Orientation: Person Level of Consciousness: Lethargic Patient Behavior: Guarded Mood Description: Withdrawn Affect Description: Blunted Ability to Follow Directions: Good Speech Pattern: Clear Hallucinations: None Delusions: Not Present Thought Process: Illogical Judgement: Fair Diagnostics Vital Signs (24Hr): Vital Signs - 24 hr 12/08/22 13:35 12/08/22 14:30 12/08/22 17:21 Temperature 97.9 F 97.9 F 97.6 F Pulse Rate 74 63 70 Respiratory Rate 16 16 16 Blood Pressure 108/60 114/61 102/58 L Pulse Oximetry 96 95 95 Oxygen Delivery Method Room Air Room Air Room Air 12/08/22 18:18 12/08/22 20:43 12/09/22 09:14 Temperature 97.5 F 98.1 F 97.3 F Pulse Rate 63 65 82 Respiratory Rate 16 14 16 Blood Pressure 112/63 89/50 L 103/57 L Pulse Oximetry 96 94 94 Oxygen Delivery Method Room Air Room Air Room Air Labs 12/03/22 07:45 Medications Medications Current Medications Acetaminophen (Acetaminophen 325 Mg Tablet) 650 mg PO Q6H PRN PRN Reason: Headache/Pain Mild Scale (1-3) Al Hydroxide/Mg Hydroxide (Magnesium Hydrox/Alum Hydrox 30 Ml Oral.Susp) 30 ml PO Q6H PRN PRN Reason: Heartburn/Nausea Artificial Tears (Artificial Tears 15 Ml Drops) 2 drop EYE-BOTH Q4H PRN PRN Reason: Dry Eyes Last Admin: 12/02/22 14:19 Dose: 2 drop Fluoxetine HCl (Fluoxetine Hcl Oral Solution 20 Mg/5 Ml Solution) 20 mg PO DAILY [facility] Last Admin: 12/09/22 08:51 Dose: Not Given Hydroxyzine HCl (Hydroxyzine Hcl 25 Mg Tablet) 25 mg PO Q6H PRN PRN Reason: Anxiety Lorazepam (Lorazepam 2 Mg/Ml Vial) 2 mg IVPUSH QID [facility] Last Admin: 12/09/22 08:47 Dose: 2 mg Magnesium Hydroxide (Milk Of Magnesia 30 Ml Oral.Susp) 30 ml PO DAILY PRN PRN Reason: Constipation Olanzapine (Olanzapine Odt 10 Mg Tab.Rapdis) 10 mg TRANSLINGU BEDTIME [facility] Last Admin: 12/08/22 22:24 Dose: Not Given Olanzapine (Olanzapine 10 Mg Vial) 5 mg IM BEDTIME PRN PRN Reason: refusal of PO Last Admin: 12/08/22 22:18 Dose: 5 mg Trazodone HCl (Trazodone Hcl 50 Mg Tablet) 50 mg PO BEDTIME PRN PRN Reason: Insomnia Allergies Allergies Allergy/AdvReac Type Severity Reaction Status Date / Time No Known Allergies Allergy Verified 10/31/22 14:47 Assessment & Plan Assessment & Plan (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 11/04: pt refusing meds and not taking anything PO. nevertheless appears slightly improved from yesterday, more verbal with less latency of response. advised to take meds and fluids. 11/05: ate and drank some last night. refusing meds. no longer grossly catatonic. continue current mgmt. 11/06: no PO intake in past 24H. refusing meds. parnell warning, 3-day up . 11/07: no food, had some water last night. recheck BMP. completed commitment paperwork. refusing meds. 11/08: denies eating or drinking but yesterday's breakfast tray was empty on return. commitment filed. refusing meds. 11/09: continues without PO intake, not attending to ADLs. refusing meds. hearing scheduled for next . labs from yesterday not indicative of concerning dehydration. 11/10 continue tx. more talkative, although guarded. No overt delusional content reported. denies SI/HI. 11/11: will order CMP for tomorrow morning given uncertainty ref PO intake 11/13: increase in BUN and Cr due to dehydration 11/14: continue tx. refuses medications but unable to provide explanation as to why not show understanding in terms of effects of decrease oral intake on renal function. 11/15: unchanged from last week. intermittent meals, BUN mildly elevated. court tomorrow. 11/16: court deferred for BEHZAD. no change in presentation. place on 1:1 for observation of PO intake. lying all day in bed, PMR, with shades drawn, for a darkened room. refusing medications. 11/17: DC olanzapine. offer SSRI. eating and drinking this morning, after having been put on 1:1. continue current mgmt. commitment hearing likely next . 11/18: refusing to look at or speak with MD. clearly ate and drank more yesterday, up and out of room more. nevertheless, spends vast majority of his time lying in bed in the dark. refusing meds. 11/19: ate more yesterday and last night. DC 1:1. appearing catatonic today, no eye blink staring at ceiling not responding. 11/20: moderate PO intake yesterday. appearing more catatonic today. continue to offer meds. 11/21: catatonic. no report on sleep or PO intake as pt is off 1:1. continue to offer meds. 11/22: catatonic. labs reassuring. court tomorrow. 11/23: catatonic. committed and ordered meds in court. 11/24: start ativan 2 mg TID with IM back-up for catatonia. plan to start neuroleptics and anti-depressants once catatonia improved. 11/25: decrease ativan to 1mg tid as he had no response to 2 mg and might be experiencing sedation from it 11/26: More alert on lower ativan dose but remains non-verbal and lying in bed 11/27 increase ativan back to 2mg po TID back up IM. 11/28: T/C gaining IV access to facilitate delivery of ativan; plan to increase to QID dosing. remains catatonic. case d/w nursing administration and medical lab scientistdirector of corporate marketing. 11/29: gain IV access today, start ativan 2 mg IV QID. was out of bed, eating and speaking yesterday evening. 11/30: 1:1 as he removed IV access, apparently. was up in kitchen getting food on evening shift. continue current mgmt. 12/01: up twice in the past 24H, ate some, swore that lights in his room had been turned on. T/C adding valium 2 mg TID IV (per court order, maximum of 8 mg ativan may be given per day) and/or antipsychotic to regimen. case D/W david. 12/02: Check comprehensive metabolic labs in AM. Continue current management. 12/03: Improved post IM dose of Zyprexa last night. Ate better. More communicative. Continue current plan of care. 12/04: some improvement over w/e. increase IM zyprexa t HS to 5 mg each. continue current mgmt. 12/05: continue current mgmt. up several times yesterday, had conversation with reza nurse, observed eating dinner. 12/06: less active yesterday. did not receive IM zyprexa last night. continue current mgmt. 12/07: received zyprexa IM last night. up for breakfast this morning, exchanged some words with MD for first time in weeks. indicated he has a depressed mood. not opposed to anti-depressant. will start prozac liquid daily. 12/08: lying in bed, not responsive. several interactions with staff yesterday, limited and often non-verbal. refused PO prozac. continue current mgmt. 12/09: still catatonic. Reason for continued inpatient stay Substantial Risk for: inability to function, rapid decompensation and med/psych decompensation Time Spent With Patient Time: Total time managing care of this patient today __20__ minutes.
[2022-12-09] MEDS: OLANZapine 10 MG VIAL 5 MG IM (22:15)
[2022-12-10] MEDS: LORazepam 2 MG/ML VIAL IVPUSH ×4 (08:59→20:59)
[2022-12-10 10:05] VITALS: BP 98/57; PULSE 58; RESP 20; TEMP 36.6; O2SAT 97
--- NOTE | 2022-12-10 10:42 | P.PNPSI_ITS ---
Subjective Subjective Date of Service: 12/10/22 Reason For Visit: catatonia Interim History: The nursing staff reported the patient had been with no changes in his mental status his IV is looking good, permeable on Ativan 2 mg IV push 4 times a day. On interview the patient refused to engage in the conversation. He looks catatonic. Mental Status Exam Mental Status Exam Patient Appearance: Disheveled Patient Orientation: Person Level of Consciousness: Lethargic Patient Behavior: Passive Mood Description: Depressed Affect Description: Blunted Ability to Follow Directions: Poor Speech Pattern: No Speech Judgement: Poor Diagnostics Vital Signs (24Hr): Vital Signs - 24 hr 12/09/22 13:15 12/09/22 13:45 12/09/22 17:15 Temperature Pulse Rate 69 60 66 Respiratory Rate Blood Pressure 97/55 L 100/58 L 101/58 L Pulse Oximetry Oxygen Delivery Method 12/09/22 18:00 12/09/22 23:16 12/09/22 22:00 Temperature 97.8 F 97.2 F Pulse Rate 62 61 67 Respiratory Rate 14 14 Blood Pressure 103/59 L 81/42 L 107/56 L Pulse Oximetry 93 94 Oxygen Delivery Method Room Air Room Air 12/10/22 10:05 Temperature 97.9 F Pulse Rate 58 Respiratory Rate 20 Blood Pressure 98/57 L Pulse Oximetry 97 Oxygen Delivery Method Room Air Labs 12/03/22 07:45 Medications Medications Current Medications Acetaminophen (Acetaminophen 325 Mg Tablet) 650 mg PO Q6H PRN PRN Reason: Headache/Pain Mild Scale (1-3) Al Hydroxide/Mg Hydroxide (Magnesium Hydrox/Alum Hydrox 30 Ml Oral.Susp) 30 ml PO Q6H PRN PRN Reason: Heartburn/Nausea Artificial Tears (Artificial Tears 15 Ml Drops) 2 drop EYE-BOTH Q4H PRN PRN Reason: Dry Eyes Last Admin: 12/02/22 14:19 Dose: 2 drop Fluoxetine HCl (Fluoxetine Hcl Oral Solution 20 Mg/5 Ml Solution) 20 mg PO DAILY [facility] Last Admin: 12/10/22 08:59 Dose: Not Given Hydroxyzine HCl (Hydroxyzine Hcl 25 Mg Tablet) 25 mg PO Q6H PRN PRN Reason: Anxiety Lorazepam (Lorazepam 2 Mg/Ml Vial) 2 mg IVPUSH QID [facility] Last Admin: 12/10/22 08:59 Dose: 2 mg Magnesium Hydroxide (Milk Of Magnesia 30 Ml Oral.Susp) 30 ml PO DAILY PRN PRN Reason: Constipation Olanzapine (Olanzapine Odt 10 Mg Tab.Rapdis) 10 mg TRANSLINGU BEDTIME [facility] Last Admin: 12/09/22 22:15 Dose: Not Given Olanzapine (Olanzapine 10 Mg Vial) 5 mg IM BEDTIME PRN PRN Reason: refusal of PO Last Admin: 12/09/22 22:15 Dose: 5 mg Trazodone HCl (Trazodone Hcl 50 Mg Tablet) 50 mg PO BEDTIME PRN PRN Reason: Insomnia Allergies Allergies Allergy/AdvReac Type Severity Reaction Status Date / Time No Known Allergies Allergy Verified 10/31/22 14:47 Assessment & Plan Assessment & Plan (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 11/04: pt refusing meds and not taking anything PO. nevertheless appears sli ghtly improved from yesterday, more verbal with less latency of response. advised to take meds and fluids. 11/05: ate and drank some last night. refusing meds. no longer grossly catatonic. continue current mgmt. 11/06: no PO intake in past 24H. refusing meds. parnell warning, 3-day up . 11/07: no food, had some water last night. recheck BMP. completed commitment paperwork. refusing meds. 11/08: denies eating or drinking but yesterday's breakfast tray was empty on return. commitment filed. refusing meds. 11/09: continues without PO intake, not attending to ADLs. refusing meds. hea ring scheduled for next . labs from yesterday not indicative of concerning dehydration. 11/10 continue tx. more talkative, although guarded. No overt delusional content reported. denies SI/HI. 11/11: will order CMP for tomorrow morning given uncertainty ref PO intake 11/13: increase in BUN and Cr due to dehydration 11/14: continue tx. refuses medications but unable to provide explanation as to why not show understanding in terms of effects of decrease oral intake on renal function. 11/15: unchanged from last week. intermittent meals, BUN mildly elevated. court tomorrow. 11/16: court deferred for BEHZAD. no change in presentation. place on 1:1 for observation of PO intake. lying all day in bed, PMR, with shades drawn, for a darkened room. refusing medications. 11/17: DC olanzapine. offer SSRI. eating and drinking this morning, after having been put on 1:1. continue current mgmt. commitment hearing likely next . 11/18: refusing to look at or speak with MD. clearly ate and drank more yesterday, up and out of room more. nevertheless, spends vast majority of his time lying in bed in the dark. refusing meds. 11/19: ate more yesterday and last night. DC 1:1. appearing catatonic today, no eye blink staring at ceiling not responding. 11/20: moderate PO intake yesterday. appearing more catatonic today. continue to offer meds. 11/21: catatonic. no report on sleep or PO intake as pt is off 1:1. continue to offer meds. 11/22: catatonic. labs reassuring. court tomorrow. 11/23: catatonic. committed and ordered meds in court. 11/24: start ativan 2 mg TID with IM back-up for catatonia. plan to start neuroleptics and anti-depressants once catatonia improved. 11/25: decrease ativan to 1mg tid as he had no response to 2 mg and might be experiencing sedation from it 11/26: More alert on lower ativan dose but remains non-verbal and lying in bed 11/27 increase ativan back to 2mg po TID back up IM. 11/28: T/C gaining IV access to facilitate delivery of ativan; plan to increase to QID dosing. remains catatonic. case d/w nursing administration and medical office asstdirector biomedical engineering. 11/29: gain IV access today, start ativan 2 mg IV QID. was out of bed, eating and speaking yesterday evening. 11/30: 1:1 as he removed IV access, apparently. was up in kitchen getting food on evening shift. continue current mgmt. 12/01: up twice in the past 24H, ate some, swore that lights in his room had been turned on. T/C adding valium 2 mg TID IV (per court order, maximum of 8 mg ativan may be given per day) and/or antipsychotic to regimen. case D/W david. 12/02: Check comprehensive metabolic labs in AM. Continue current management. 12/03: Improved post IM dose of Zyprexa last night. Ate better. More communicative. Continue current plan of care. 12/04: some improvement over w/e. increase IM zyprexa t HS to 5 mg each. continue current mgmt. 12/05: continue current mgmt. up several times yesterday, had conversation with reza nurse, observed eating dinner. 12/06: less active yesterday. did not receive IM zyprexa last night. continue current mgmt. 12/07: received zyprexa IM last night. up for breakfast this morning, exchanged some words with MD for first time in weeks. indicated he has a depressed mood. not opposed to anti-depressant. will start prozac liquid daily. 12/08: lying in bed, not responsive. several interactions with staff yesterday, limited and often non-verbal. refused PO prozac. continue current mgmt. 12/09: still catatonic. 12/10 still catatonic Reason for continued inpatient stay Substantial Risk for: inability to function, rapid decompensation and med/psych decompensation Time Spent With Patient Time: Total time managing care of this patient today _20___ minutes.
[2022-12-10 13:15] VITALS: BP 98/56; PULSE 81
[2022-12-10 13:50] VITALS: BP 101/60; PULSE 66
[2022-12-10 20:35] VITALS: BP 105/66; PULSE 80; RESP 18; TEMP 36.7; O2SAT 95
[2022-12-10] MEDS: OLANZapine 10 MG VIAL 5 MG IM (20:58)
[2022-12-10 21:20] VITALS: BP 90/52; PULSE 85
[2022-12-11] MEDS: LORazepam 2 MG/ML VIAL IVPUSH ×4 (09:58→23:15)
[2022-12-11 10:39] VITALS: BP 114/74; PULSE 58; RESP 18; TEMP 36.7; O2SAT 97
--- NOTE | 2022-12-11 14:29 | HO.PSYCHPN ---
Subjective Subjective Date of Service: 12/11/22 Reason For Visit: catatonia Subjective Notes: Section 8 Interim History: Patient with intermittent verbalization out of bed at times Medication Compliance: Intermittent Mental Status Exam Mental Status Exam Patient Appearance: Disheveled Patient Orientation: Person Level of Consciousness: Lethargic Patient Behavior: Passive Mood Description: Depressed Affect Description: Blunted Ability to Follow Directions: Poor Speech Pattern: Impoverished and No Speech Abnormal Motor Activity Signs and Symptoms: Psychomotor Retardation Judgement: Poor Diagnostics Vital Signs (24Hr): Vital Signs - 24 hr 12/10/22 20:35 12/10/22 21:20 12/11/22 10:39 Temperature 98.1 F 98.1 F Pulse Rate 80 85 58 Respiratory Rate 18 18 Blood Pressure 105/66 90/52 L 114/74 Pulse Oximetry 95 97 Oxygen Delivery Method Room Air Labs 12/03/22 07:45 Medications Medications Current Medications Acetaminophen (Acetaminophen 325 Mg Tablet) 650 mg PO Q6H PRN PRN Reason: Headache/Pain Mild Scale (1-3) Al Hydroxide/Mg Hydroxide (Magnesium Hydrox/Alum Hydrox 30 Ml Oral.Susp) 30 ml PO Q6H PRN PRN Reason: Heartburn/Nausea Artificial Tears (Artificial Tears 15 Ml Drops) 2 drop EYE-BOTH Q4H PRN PRN Reason: Dry Eyes Last Admin: 12/02/22 14:19 Dose: 2 drop Fluoxetine HCl (Fluoxetine Hcl Oral Solution 20 Mg/5 Ml Solution) 20 mg PO DAILY [facility] Last Admin: 12/10/22 08:59 Dose: Not Given Hydroxyzine HCl (Hydroxyzine Hcl 25 Mg Tablet) 25 mg PO Q6H PRN PRN Reason: Anxiety Lorazepam (Lorazepam 2 Mg/Ml Vial) 2 mg IVPUSH QID [facility] Last Admin: 12/11/22 14:05 Dose: 2 mg Magnesium Hydroxide (Milk Of Magnesia 30 Ml Oral.Susp) 30 ml PO DAILY PRN PRN Reason: Constipation Olanzapine (Olanzapine Odt 10 Mg Tab.Rapdis) 10 mg TRANSLINGU BEDTIME [facility] Last Admin: 12/10/22 21:30 Dose: Not Given Olanzapine (Olanzapine 10 Mg Vial) 5 mg IM BEDTIME PRN PRN Reason: refusal of PO Last Admin: 12/10/22 20:58 Dose: 5 mg Trazodone HCl (Trazodone Hcl 50 Mg Tablet) 50 mg PO BEDTIME PRN PRN Reason: Insomnia Allergies Allergies Allergy/AdvReac Type Severity Reaction Status Date / Time No Known Allergies Allergy Verified 10/31/22 14:47 Assessment & Plan Assessment & Plan (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 11/04: pt refusing meds and not taking anything PO. nevertheless appears slightly improved from yesterday, more verbal with less latency of response. advised to take meds and fluids. 11/05: ate and drank some last night. refusing meds. no longer grossly catatonic. continue current mgmt. 11/06: no PO intake in past 24H. refusing meds. parnell warning, 3-day up . 11/07: no food, had some water last night. recheck BMP. completed commitment paperwork. refusing meds. 11/08: denies eating or drinking but yesterday's breakfast tray was empty on return. commitment filed. refusing meds. 11/09: continues without PO intake, not attending to ADLs. refusing meds. hearing scheduled for next . labs from yesterday not indicative of concerning dehydration. 11/10 continue tx. more talkative, although guarded. No overt delusional content reported. denies SI/HI. 11/11: will order CMP for tomorrow morning given uncertainty ref PO intake 11/13: increase in BUN and Cr due to dehydration 11/14: continue tx. refuses medications but unable to provide explanation as to why not show understanding in terms of effects of decrease oral intake on renal function. 11/15: unchanged from last week. intermittent meals, BUN mildly elevated. court tomorrow. 11/16: court deferred for BEHZAD. no change in presentation. place on 1:1 for observation of PO intake. lying all day in bed, PMR, with shades drawn, for a darkened room. refusing medications. 11/17: DC olanzapine. offer SSRI. eating and drinking this morning, after having been put on 1:1. continue current mgmt. commitment hearing likely next . 11/18: refusing to look at or speak with MD. clearly ate and drank more yesterday, up and out of room more. nevertheless, spends vast majority of his time lying in bed in the dark. refusing meds. 11/19: ate more yesterday and last night. DC 1:1. appearing catatonic today, no eye blink staring at ceiling not responding. 11/20: moderate PO intake yesterday. appearing more catatonic today. continue to offer meds. 11/21: catatonic. no report on sleep or PO intake as pt is off 1:1. continue to offer meds. 11/22: catatonic. labs reassuring. court tomorrow. 11/23: catatonic. committed and ordered meds in court. 11/24: start ativan 2 mg TID with IM back-up for catatonia. plan to start neuroleptics and anti-depressants once catatonia improved. 11/25: decrease ativan to 1mg tid as he had no response to 2 mg and might be experiencing sedation from it 11/26: More alert on lower ativan dose but remains non-verbal and lying in bed 11/27 increase ativan back to 2mg po TID back up IM. 11/28: T/C gaining IV access to facilitate delivery of ativan; plan to increase to QID dosing. remains catatonic. case d/w nursing administration and emergency medical technicianfarm operations technical director. 11/29: gain IV access today, start ativan 2 mg IV QID. was out of bed, eating and speaking yesterday evening. 11/30: 1:1 as he removed IV access, apparently. was up in kitchen getting food on evening shift. continue current mgmt. 12/01: up twice in the past 24H, ate some, swore that lights in his room had been turned on. T/C adding valium 2 mg TID IV (per court order, maximum of 8 mg ativan may be given per day) and/or antipsychotic to regimen. case D/W david. 12/02: Check comprehensive metabolic labs in AM. Continue current management. 12/03: Improved post IM dose of Zyprexa last night. Ate better. More communicative. Continue current plan of care. 12/04: some improvement over w/e. increase IM zyprexa t HS to 5 mg each. continue current mgmt. 12/05: continue current mgmt. up several times yesterday, had conversation with reza nurse, observed eating dinner. 12/06: less active yesterday. did not receive IM zyprexa last night. continue current mgmt. 12/07: received zyprexa IM last night. up for breakfast this morning, exchanged some words with MD for first time in weeks. indicated he has a depressed mood. not opposed to anti-depressant. will start prozac liquid daily. 12/08: lying in bed, not responsive. several interactions with staff yesterday, limited and often non-verbal. refused PO prozac. continue current mgmt. 12/09: still catatonic. 12/10 still catatonic 12/11/22 Patient intermittently responsive often refusing p.o. meds may require ECT Reason for continued inpatient stay Substantial Risk for: inability to function, rapid decompensation and med/psych decompensation Time Spent With Patient Time: Total time managing care of this patient today ____ minutes.
[2022-12-11 22:30] VITALS: BP 114/60; PULSE 66; RESP 16; TEMP 36.3; O2SAT 96
[2022-12-11] MEDS: OLANZapine 10 MG VIAL 5 MG IM (23:15)
[2022-12-11 23:30] VITALS: BP 102/56; PULSE 76
[2022-12-12 09:29] VITALS: BP 103/62; PULSE 73; RESP 14; TEMP 37; O2SAT 96
[2022-12-12] MEDS: LORazepam 2 MG/ML VIAL IVPUSH ×4 (10:42→21:10)
[2022-12-12 21:14] VITALS: BP 99/56; PULSE 55; TEMP 36.1; O2SAT 93
[2022-12-12] MEDS: OLANZapine 10 MG VIAL 5 MG IM (21:36)
--- NOTE | 2022-12-12 23:03 | HO.PSYCHPN ---
Subjective Subjective Date of Service: 12/12/22 Reason For Visit: catatonia Subjective Notes: Section 8 Interim History: The patient is often staring with marked lack of engagement in to surroundings continues to refuse p.o. Prozac Mental Status Exam Mental Status Exam Patient Appearance: Disheveled and Rigid Patient Orientation: Person Level of Consciousness: Lethargic Patient Behavior: Passive Mood Description: Depressed Affect Description: Blunted Ability to Follow Directions: Poor Speech Pattern: Impoverished and No Speech Abnormal Motor Activity Signs and Symptoms: Psychomotor Retardation Judgement: Poor Diagnostics Vital Signs (24Hr): Vital Signs - 24 hr 12/11/22 23:30 12/12/22 09:29 12/12/22 21:14 Temperature 98.6 F 97.0 F Pulse Rate 76 73 55 Respiratory Rate 14 Blood Pressure 102/56 L 103/62 99/56 L Pulse Oximetry 96 93 Oxygen Delivery Method Room Air Room Air Labs 12/03/22 07:45 Medications Medications Current Medications Acetaminophen (Acetaminophen 325 Mg Tablet) 650 mg PO Q6H PRN PRN Reason: Headache/Pain Mild Scale (1-3) Al Hydroxide/Mg Hydroxide (Magnesium Hydrox/Alum Hydrox 30 Ml Oral.Susp) 30 ml PO Q6H PRN PRN Reason: Heartburn/Nausea Artificial Tears (Artificial Tears 15 Ml Drops) 2 drop EYE-BOTH Q4H PRN PRN Reason: Dry Eyes Last Admin: 12/02/22 14:19 Dose: 2 drop Fluoxetine HCl (Fluoxetine Hcl Oral Solution 20 Mg/5 Ml Solution) 20 mg PO DAILY [facility] Last Admin: 12/12/22 17:47 Dose: Not Given Hydroxyzine HCl (Hydroxyzine Hcl 25 Mg Tablet) 25 mg PO Q6H PRN PRN Reason: Anxiety Lorazepam (Lorazepam 2 Mg/Ml Vial) 2 mg IVPUSH QID [facility] Last Admin: 12/12/22 21:10 Dose: 2 mg Magnesium Hydroxide (Milk Of Magnesia 30 Ml Oral.Susp) 30 ml PO DAILY PRN PRN Reason: Constipation Olanzapine (Olanzapine Odt 10 Mg Tab.Rapdis) 10 mg TRANSLINGU BEDTIME [facility] Last Admin: 12/12/22 21:13 Dose: Not Given Olanzapine (Olanzapine 10 Mg Vial) 5 mg IM BEDTIME PRN PRN Reason: refusal of PO Last Admin: 12/12/22 21:36 Dose: 5 mg Trazodone HCl (Trazodone Hcl 50 Mg Tablet) 50 mg PO BEDTIME PRN PRN Reason: Insomnia Allergies Allergies Allergy/AdvReac Type Severity Reaction Status Date / Time No Known Allergies Allergy Verified 10/31/22 14:47 Assessment & Plan Assessment & Plan (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 11/04: pt refusing meds and not taking anything PO. nevertheless appears slightly improved from yesterday, more verbal with less latency of response. advised to take meds and fluids. 11/05: ate and drank some last night. refusing meds. no longer grossly catatonic. continue current mgmt. 11/06: no PO intake in past 24H. refusing meds. parnell warning, 3-day up . 11/07: no food, had some water last night. recheck BMP. completed commitment paperwork. refusing meds. 11/08: denies eating or drinking but yesterday's breakfast tray was empty on return. commitment filed. refusing meds. 11/09: continues without PO intake, not attending to ADLs. refusing meds. hearing scheduled for next . labs from yesterday not indicative of concerning dehydration. 11/10 continue tx. more talkative, although guarded. No overt delusional content reported. denies SI/HI. 11/11: will order CMP for tomorrow morning given uncertainty ref PO intake 11/13: increase in BUN and Cr due to dehydration 11/14: continue tx. refuses medications but unable to provide explanation as to why not show understanding in terms of effects of decrease oral intake on renal function. 11/15: unchanged from last week. intermittent meals, BUN mildly elevated. court tomorrow. 11/16: court deferred for BEHZAD. no change in presentation. place on 1:1 for observation of PO intake. lying all day in bed, PMR, with shades drawn, for a darkened room. refusing medications. 11/17: DC olanzapine. offer SSRI. eating and drinking this morning, after having been put on 1:1. continue current mgmt. commitment hearing likely next . 11/18: refusing to look at or speak with MD. clearly ate and drank more yesterday, up and out of room more. nevertheless, spends vast majority of his time lying in bed in the dark. refusing meds. 11/19: ate more yesterday and last night. DC 1:1. appearing catatonic today, no eye blink staring at ceiling not responding. 11/20: moderate PO intake yesterday. appearing more catatonic today. continue to offer meds. 11/21: catatonic. no report on sleep or PO intake as pt is off 1:1. continue to offer meds. 11/22: catatonic. labs reassuring. court tomorrow. 11/23: catatonic. committed and ordered meds in court. 11/24: start ativan 2 mg TID with IM back-up for catatonia. plan to start neuroleptics and anti-depressants once catatonia improved. 11/25: decrease ativan to 1mg tid as he had no response to 2 mg and might be experiencing sedation from it 11/26: More alert on lower ativan dose but remains non-verbal and lying in bed 11/27 increase ativan back to 2mg po TID back up IM. 11/28: T/C gaining IV access to facilitate delivery of ativan; plan to increase to QID dosing. remains catatonic. case d/w nursing administration and medical stenographerdirector of maternity services. 11/29: gain IV access today, start ativan 2 mg IV QID. was out of bed, eating and speaking yesterday evening. 11/30: 1:1 as he removed IV access, apparently. was up in kitchen getting food on evening shift. continue current mgmt. 12/01: up twice in the past 24H, ate some, swore that lights in his room had been turned on. T/C adding valium 2 mg TID IV (per court order, maximum of 8 mg ativan may be given per day) and/or antipsychotic to regimen. case D/W david. 12/02: Check comprehensive metabolic labs in AM. Continue current management. 12/03: Improved post IM dose of Zyprexa last night. Ate better. More communicative. Continue current plan of care. 12/04: some improvement over w/e. increase IM zyprexa t HS to 5 mg each. continue current mgmt. 12/05: continue current mgmt. up several times yesterday, had conversation with reza nurse, observed eating dinner. 12/06: less active yesterday. did not receive IM zyprexa last night. continue current mgmt. 12/07: received zyprexa IM last night. up for breakfast this morning, exchanged some words with MD for first time in weeks. indicated he has a depressed mood. not opposed to anti-depressant. will start prozac liquid daily. 12/08: lying in bed, not responsive. several interactions with staff yesterday, limited and often non-verbal. refused PO prozac. continue current mgmt. 12/09: still catatonic. 12/10 still catatonic 12/11/22 Patient intermittently responsive often refusing p.o. meds may require ECT 12/12/2022 Patient remains mostly electively mute intermittently catatonic with some periods of verbal discourse Reason for continued inpatient stay Substantial Risk for: inability to function, rapid decompensation and med/psych decompensation Time Spent With Patient Time: Total time managing care of this patient today ____ minutes.
[2022-12-13 09:15] VITALS: BP 100/60; PULSE 57; RESP 18; TEMP 36.4; O2SAT 97
[2022-12-13] MEDS: LORazepam 2 MG/ML VIAL IVPUSH ×4 (09:32→21:12)
[2022-12-13 21:00] VITALS: BP 107/59; PULSE 89; TEMP 36.6; O2SAT 92
[2022-12-13] MEDS: OLANZapine 10 MG VIAL 5 MG IM (21:13)
--- NOTE | 2022-12-13 23:14 | P.PNPSI_ITS ---
Subjective Subjective Date of Service: 12/13/22 Reason For Visit: catatonia Subjective Notes: Section 8 Interim History: Pt somewhat more verbal said he had been tx depression in the past had been on prozac s/o depression no feeling Medication Compliance: Intermittent Attending Groups: No Mental Status Exam Mental Status Exam Patient Appearance: Disheveled and Rigid Patient Orientation: Person Level of Consciousness: Lethargic Patient Behavior: Passive Mood Description: Depressed Affect Description: Blunted Ability to Follow Directions: Poor Speech Pattern: Impoverished and No Speech Abnormal Motor Activity Signs and Symptoms: Psychomotor Retardation Judgement: Poor Diagnostics Vital Signs (24Hr): Vital Signs - 24 hr 12/13/22 09:15 12/13/22 21:00 Temperature 97.5 F 97.9 F Pulse Rate 57 89 Respiratory Rate 18 Blood Pressure 100/60 107/59 L Pulse Oximetry 97 92 Oxygen Delivery Method Room Air Room Air Labs 12/03/22 07:45 Medications Medications Current Medications Acetaminophen (Acetaminophen 325 Mg Tablet) 650 mg PO Q6H PRN PRN Reason: Headache/Pain Mild Scale (1-3) Al Hydroxide/Mg Hydroxide (Magnesium Hydrox/Alum Hydrox 30 Ml Oral.Susp) 30 ml PO Q6H PRN PRN Reason: Heartburn/Nausea Artificial Tears (Artificial Tears 15 Ml Drops) 2 drop EYE-BOTH Q4H PRN PRN Reason: Dry Eyes Last Admin: 12/02/22 14:19 Dose: 2 drop Fluoxetine HCl (Fluoxetine Hcl Oral Solution 20 Mg/5 Ml Solution) 20 mg PO DAILY [facility] Last Admin: 12/13/22 09:46 Dose: Not Given Hydroxyzine HCl (Hydroxyzine Hcl 25 Mg Tablet) 25 mg PO Q6H PRN PRN Reason: Anxiety Lorazepam (Lorazepam 2 Mg/Ml Vial) 2 mg IVPUSH QID [facility] Last Admin: 12/13/22 21:12 Dose: 2 mg Magnesium Hydroxide (Milk Of Magnesia 30 Ml Oral.Susp) 30 ml PO DAILY PRN PRN Reason: Constipation Olanzapine (Olanzapine Odt 10 Mg Tab.Rapdis) 10 mg TRANSLINGU BEDTIME [facility] Last Admin: 12/13/22 20:53 Dose: Not Given Olanzapine (Olanzapine 10 Mg Vial) 5 mg IM BEDTIME PRN PRN Reason: refusal of PO Last Admin: 12/13/22 21:13 Dose: 5 mg Trazodone HCl (Trazodone Hcl 50 Mg Tablet) 50 mg PO BEDTIME PRN PRN Reason: Insomnia Allergies Allergies Allergy/AdvReac Type Severity Reaction Status Date / Time No Known Allergies Allergy Verified 10/31/22 14:47 Assessment & Plan Assessment & Plan (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 11/04: pt refusing meds and not taking anything PO. nevertheless appears slightly improved from yesterday, more verbal with less latency of response. advised to take meds and fluids. 11/05: ate and drank some last night. refusing meds. no longer grossly catatonic. continue current mgmt. 11/06: no PO intake in past 24H. refusing meds. parnell warning, 3-day up . 11/07: no food, had some water last night. recheck BMP. completed commitment paperwork. refusing meds. 11/08: denies eating or drinking but yesterday's breakfast tray was empty on return. commitment filed. refusing meds. 11/09: continues without PO intake, not attending to ADLs. refusing meds. hearing scheduled for next . labs from yesterday not indicative of concerning dehydration. 11/10 continue tx. more talkative, although guarded. No overt delusional content reported. denies SI/HI. 11/11: will order CMP for tomorrow morning given uncertainty ref PO intake 11/13: increase in BUN and Cr due to dehydration 11/14: continue tx. refuses medications but unable to provide explanation as to why not show understanding in terms of effects of decrease oral intake on renal function. 11/15: unchanged from last week. intermittent meals, BUN mildly elevated. court tomorrow. 11/16: court deferred for BEHZAD. no change in presentation. place on 1:1 for observation of PO intake. lying all day in bed, PMR, with shades drawn, for a darkened room. refusing medications. 11/17: DC olanzapine. offer SSRI. eating and drinking this morning, after having been put on 1:1. continue current mgmt. commitment hearing likely next . 11/18: refusing to look at or speak with MD. clearly ate and drank more yesterday, up and out of room more. nevertheless, spends vast majority of his time lying in bed in the dark. refusing meds. 11/19: ate more yesterday and last night. DC 1:1. appearing catatonic today, no eye blink staring at ceiling not responding. 11/20: moderate PO intake yesterday. appearing more catatonic today. continue to offer meds. 11/21: catatonic. no report on sleep or PO intake as pt is off 1:1. continue to offer meds. 11/22: catatonic. labs reassuring. court tomorrow. 11/23: catatonic. committed and ordered meds in court. 11/24: start ativan 2 mg TID with IM back-up for catatonia. plan to start neuroleptics and anti-depressants once catatonia improved. 11/25: decrease ativan to 1mg tid as he had no response to 2 mg and might be expe riencing sedation from it 11/26: More alert on lower ativan dose but remains non-verbal and lying in bed 11/27 increase ativan back to 2mg po TID back up IM. 11/28: T/C gaining IV access to facilitate delivery of ativan; plan to increase to QID dosing. remains catatonic. case d/w nursing administration and regional medical directornon profit director. 11/29: gain IV access today, start ativan 2 mg IV QID. was out of bed, eating and speaking yesterday evening. 11/30: 1:1 as he removed IV access, apparently. was up in kitchen getting food on evening shift. continue current mgmt. 12/01: up twice in the past 24H, ate some, swore that lights in his room had been turned on. T/C adding valium 2 mg TID IV (per court order, maximum of 8 mg ativan may be given per day) and/or antipsychotic to regimen. case D/W david. 12/02: Check comprehensive metabolic labs in AM. Continue current management. 12/03: Improved post IM dose of Zyprexa last night. Ate better. More communicative. Continue current plan of care. 12/04: some improvement over w/e. increase IM zyprexa t HS to 5 mg each. continue current mgmt. 12/05: continue current mgmt. up several times yesterday, had conversation with reza nurse, observed eating dinner. 12/06: less active yesterday. did not receive IM zyprexa last night. continue current mgmt. 12/07: received zyprexa IM last night. up for breakfast this morning, exchanged some words with MD for first time in weeks. indicated he has a depressed mood. not opposed to anti-depressant. will start prozac liquid daily. 12/08: lying in bed, not responsive. several interactions with staff yesterday, limited and often non-verbal. refused PO prozac. continue current mgmt. 12/09: still catatonic. 12/10 still catatonic 12/11/22 Patient intermittently responsive often refusing p.o. meds may require ECT 12/12/2022 Patient remains mostly electively mute intermittently catatonic with some periods of verbal discourse 12/13/22 more verbal hx of recurrent depression still gets iv ativan refuses po meds Reason for continued inpatient stay Substantial Risk for: harm to self, inability to function and med/psych decompensation Time Spent With Patient Time: Total time managing care of this patient today ____ minutes.
[2022-12-14] MEDS: LORazepam 2 MG/ML VIAL IVPUSH ×4 (09:01→21:19)
[2022-12-14 09:23] VITALS: BP 110/60; PULSE 76; RESP 18; TEMP 37.1; O2SAT 95
--- NOTE | 2022-12-14 09:30 | P.PNPSI_ITS ---
Subjective Subjective Date of Service: 12/14/22 Reason For Visit: catatonia Subjective Notes: Section 8 Interim History: Patient continues to be mostly mute lying in bed intermittent for ambulation limited food and fluid intake Continues to refuse p.o. medication for reasons that are not clear Attending Groups: No Mental Status Exam Mental Status Exam Patient Appearance: Disheveled and Rigid Patient Orientation: Person Level of Consciousness: Lethargic Patient Behavior: Passive Mood Description: Depressed Affect Description: Blunted Ability to Follow Directions: Poor Speech Pattern: Impoverished and No Speech Abnormal Motor Activity Signs and Symptoms: Psychomotor Retardation Judgement: Poor Diagnostics Vital Signs (24Hr): Vital Signs - 24 hr 12/13/22 21:00 12/14/22 09:23 Temperature 97.9 F 98.7 F Pulse Rate 89 76 Respiratory Rate 18 Blood Pressure 107/59 L 110/60 Pulse Oximetry 92 95 Oxygen Delivery Method Room Air Room Air Labs 12/03/22 07:45 Medications Medications Current Medications Acetaminophen (Acetaminophen 325 Mg Tablet) 650 mg PO Q6H PRN PRN Reason: Headache/Pain Mild Scale (1-3) Al Hydroxide/Mg Hydroxide (Magnesium Hydrox/Alum Hydrox 30 Ml Oral.Susp) 30 ml PO Q6H PRN PRN Reason: Heartburn/Nausea Artificial Tears (Artificial Tears 15 Ml Drops) 2 drop EYE-BOTH Q4H PRN PRN Reason: Dry Eyes Last Admin: 12/02/22 14:19 Dose: 2 drop Fluoxetine HCl (Fluoxetine Hcl Oral Solution 20 Mg/5 Ml Solution) 20 mg PO DAILY [facility] Last Admin: 12/14/22 09:05 Dose: Not Given Hydroxyzine HCl (Hydroxyzine Hcl 25 Mg Tablet) 25 mg PO Q6H PRN PRN Reason: Anxiety Lorazepam (Lorazepam 2 Mg/Ml Vial) 2 mg IVPUSH QID [facility] Last Admin: 12/14/22 09:01 Dose: 2 mg Magnesium Hydroxide (Milk Of Magnesia 30 Ml Oral.Susp) 30 ml PO DAILY PRN PRN Reason: Constipation Olanzapine (Olanzapine Odt 10 Mg Tab.Rapdis) 10 mg TRANSLINGU BEDTIME [facility] Last Admin: 12/13/22 20:53 Dose: Not Given Olanzapine (Olanzapine 10 Mg Vial) 5 mg IM BEDTIME PRN PRN Reason: refusal of PO Last Admin: 12/13/22 21:13 Dose: 5 mg Trazodone HCl (Trazodone Hcl 50 Mg Tablet) 50 mg PO BEDTIME PRN PRN Reason: Insomnia Allergies Allergies Allergy/AdvReac Type Severity Reaction Status Date / Time No Known Allergies Allergy Verified 10/31/22 14:47 Assessment & Plan Assessment & Plan (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 11/04: pt refusing meds and not taking anything PO. nevertheless appears slightly improved from yesterday, more verbal with less latency of response. advised to take meds and fluids. 11/05: ate and drank some last night. refusing meds. no longer grossly catatonic. continue current mgmt. 11/06: no PO intake in past 24H. refusing meds. parnell warning, 3-day up . 11/07: no food, had some water last night. recheck BMP. completed commitment paperwork. refusing meds. 11/08: denies eating or drinking but yesterday's breakfast tray was empty on return. commitment filed. refusing meds. 11/09: continues without PO intake, not attending to ADLs. refusing meds. hearing scheduled for next . labs from yesterday not indicative of concerning dehydration. 11/10 continue tx. more talkative, although guarded. No overt delusional content reported. denies SI/HI. 11/11: will order CMP for tomorrow morning given uncertainty ref PO intake 11/13: increase in BUN and Cr due to dehydration 11/14: continue tx. refuses medications but unable to provide explanation as to why not show understanding in terms of effects of decrease oral intake on renal function. 11/15: unchanged from last week. intermittent meals, BUN mildly elevated. court tomorrow. 11/16: court deferred for BEHZAD. no change in presentation. place on 1:1 for observation of PO intake. lying all day in bed, PMR, with shades drawn, for a darkened room. refusing medications. 11/17: DC olanzapine. offer SSRI. eating and drinking this morning, after having been put on 1:1. continue current mgmt. commitment hearing likely next . 11/18: refusing to look at or speak with MD. clearly ate and drank more yesterday, up and out of room more. nevertheless, spends vast majority of his time lying in bed in the dark. refusing meds. 11/19: ate more yesterday and last night. DC 1:1. appearing catatonic today, no eye blink staring at ceiling not responding. 11/20: moderate PO intake yesterday. appearing more catatonic today. continue to offer meds. 11/21: catatonic. no report on sleep or PO intake as pt is off 1:1. continue to offer meds. 11/22: catatonic. labs reassuring. court tomorrow. 11/23: catatonic. committed and ordered meds in court. 11/24: start ativan 2 mg TID with IM back-up for catatonia. plan to start neuroleptics and anti-depressants once catatonia improved. 11/25: decrease ativan to 1mg tid as he had no response to 2 mg and might be exp eriencing sedation from it 11/26: More alert on lower ativan dose but remains non-verbal and lying in bed 11/27 increase ativan back to 2mg po TID back up IM. 11/28: T/C gaining IV access to facilitate delivery of ativan; plan to increase to QID dosing. remains catatonic. case d/w nursing administration and esthetician and manager medical spaemergency department director. 11/29: gain IV access today, start ativan 2 mg IV QID. was out of bed, eating and speaking yesterday evening. 11/30: 1:1 as he removed IV access, apparently. was up in kitchen getting food on evening shift. continue current mgmt. 12/01: up twice in the past 24H, ate some, swore that lights in his room had been turned on. T/C adding valium 2 mg TID IV (per court order, maximum of 8 mg ativan may be given per day) and/or antipsychotic to regimen. case D/W david. 12/02: Check comprehensive metabolic labs in AM. Continue current management. 12/03: Improved post IM dose of Zyprexa last night. Ate better. More communicative. Continue current plan of care. 12/04: some improvement over w/e. increase IM zyprexa t HS to 5 mg each. continue current mgmt. 12/05: continue current mgmt. up several times yesterday, had conversation with reza nurse, observed eating dinner. 12/06: less active yesterday. did not receive IM zyprexa last night. continue current mgmt. 12/07: received zyprexa IM last night. up for breakfast this morning, exchanged some words with MD for first time in weeks. indicated he has a depressed mood. not opposed to anti-depressant. will start prozac liquid daily. 12/08: lying in bed, not responsive. several interactions with staff yesterday, limited and often non-verbal. refused PO prozac. continue current mgmt. 12/09: still catatonic. 12/10 still catatonic 12/11/22 Patient intermittently responsive often refusing p.o. meds may require ECT 12/12/2022 Patient remains mostly electively mute intermittently catatonic with some periods of verbal discourse 12/13/22 more verbal hx of recurrent depression still gets iv ativan refuses po meds 12 14 22 Continue Ativan and intravenous is encouraged fluoxetine continue olanzapine 5 mg patient does not appear to be psychotic would encourage ECT Reason for continued inpatient stay Substantial Risk for: harm to self, inability to function and rapid decompensation Time Spent With Patient Time: Total time managing care of this patient today ____ minutes.
[2022-12-14 10:02] VITALS: BP 99/55; PULSE 80
[2022-12-14 18:00] VITALS: BP 107/57; PULSE 64; RESP 16; TEMP 36.8; O2SAT 95
[2022-12-14] MEDS: OLANZapine 10 MG VIAL 5 MG IM (23:11)
[2022-12-15] VITALS (8 sets, daily range): BP systolic 100–113; BP diastolic 56–71; PULSE 60–91; RESP 16–20; TEMP 36.2–36.6; O2SAT 94–98
[2022-12-15] MEDS: LORazepam 2 MG/ML VIAL IVPUSH ×4 (08:46→23:22)
[2022-12-15 10:40] LABS: Alanine Aminotransferase 16 U/L (0-40); Albumin Level 3.6 g/dL (3.5-5.0); Alkaline Phosphatase 55 U/L (39-117); Anion Gap 14 (12-20); Aspartate Amino Transferase 18 U/L (5-37); Bilirubin Total 0.7 mg/dL (0.0-1.0); Blood Urea Nitrogen 11 mg/dL (9-16); Calcium 9.3 mg/dL (8.4-10.2); Carbon Dioxide 23 mmol/L (22-29); Chloride 106 mmol/L (96-108); Estimated Glomerular Filt Rate > 60; Glucose Random 86 mg/dL (60-115); Potassium 4.3 mmol/L (3.3-5.1); Sodium 139 mmol/L (135-145); Total Protein 6.5 g/dL (6.5-8.0)
--- NOTE | 2022-12-15 11:19 | HO.PSYCHPN ---
Subjective Subjective Date of Service: 12/15/22 Reason For Visit: catatonia Interim History: Patient did allow blood work to be drawn continues to not engage intermittent eating and drinking in limited manner spending most of the day in bed continues to refuse p.o. medication Medication Compliance: No Mental Status Exam Mental Status Exam Narrative: Eyes closed off mute Patient Appearance: Disheveled and Rigid Patient Orientation: Person Level of Consciousness: Lethargic Patient Behavior: Passive, Uncooperative and Poor Eye Contact Mood Description: Depressed Affect Description: Blunted Ability to Follow Directions: Poor Speech Pattern: Impoverished and No Speech Hallucinations: None Thought Process: Evasive and Slowed Thinking Abnormal Motor Activity Signs and Symptoms: Psychomotor Retardation Judgement: Poor Judgement and Insight: Poverty of content Diagnostics Vital Signs (24Hr): Vital Signs - 24 hr 12/14/22 18:00 12/15/22 08:40 12/15/22 09:07 Temperature 98.3 F 97.2 F 97.6 F Pulse Rate 64 60 60 Respiratory Rate 16 20 16 Blood Pressure 107/57 L 111/67 100/63 Pulse Oximetry 95 97 97 Oxygen Delivery Method Room Air Room Air Room Air Labs 12/15/22 09:53 Labs: Laboratory Results - last 48 hr 12/15/22 09:53 Sodium 139 Potassium 4.3 Chloride 106 Carbon Dioxide 23 Anion Gap 14 BUN 11 Creatinine 0.74 Estim Creat Clear Calc TNP Estimated GFR > 60 Random Glucose 86 Calcium 9.3 Total Bilirubin 0.7 AST 18 ALT 16 Alkaline Phosphatase 55 Total Protein 6.5 Albumin 3.6 Medications Medications Current Medications Acetaminophen (Acetaminophen 325 Mg Tablet) 650 mg PO Q6H PRN PRN Reason: Headache/Pain Mild Scale (1-3) Al Hydroxide/Mg Hydroxide (Magnesium Hydrox/Alum Hydrox 30 Ml Oral.Susp) 30 ml PO Q6H PRN PRN Reason: Heartburn/Nausea Artificial Tears (Artificial Tears 15 Ml Drops) 2 drop EYE-BOTH Q4H PRN PRN Reason: Dry Eyes Last Admin: 12/02/22 14:19 Dose: 2 drop Fluoxetine HCl (Fluoxetine Hcl Oral Solution 20 Mg/5 Ml Solution) 20 mg PO DAILY [facility] Last Admin: 12/15/22 08:40 Dose: Not Given Hydroxyzine HCl (Hydroxyzine Hcl 25 Mg Tablet) 25 mg PO Q6H PRN PRN Reason: Anxiety Lorazepam (Lorazepam 2 Mg/Ml Vial) 2 mg IVPUSH QID [facility] Last Admin: 12/15/22 08:46 Dose: 2 mg Magnesium Hydroxide (Milk Of Magnesia 30 Ml Oral.Susp) 30 ml PO DAILY PRN PRN Reason: Constipation Olanzapine (Olanzapine Odt 10 Mg Tab.Rapdis) 10 mg TRANSLINGU BEDTIME [facility] Last Admin: 12/14/22 23:11 Dose: Not Given Olanzapine (Olanzapine 10 Mg Vial) 5 mg IM BEDTIME PRN PRN Reason: refusal of PO Last Admin: 12/14/22 23:11 Dose: 5 mg Trazodone HCl (Trazodone Hcl 50 Mg Tablet) 50 mg PO BEDTIME PRN PRN Reason: Insomnia Allergies Allergies Allergy/AdvReac Type Severity Reaction Status Date / Time No Known Allergies Allergy Verified 10/31/22 14:47 Assessment & Plan Assessment & Plan (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 11/04: pt refusing meds and not taking anything PO. nevertheless appears slightly improved from yesterday, more verbal with less latency of response. advised to take meds and fluids. 11/05: ate and drank some last night. refusing meds. no longer grossly catatonic. continue current mgmt. 11/06: no PO intake in past 24H. refusing meds. parnell warning, 3-day up . 11/07: no food, had some water last night. recheck BMP. completed commitment paperwork. refusing meds. 11/08: denies eating or drinking but yesterday's breakfast tray was empty on return. commitment filed. refusing meds. 11/09: continues without PO intake, not attending to ADLs. refusing meds. hearing scheduled for next . labs from yesterday not indicative of concerning dehydration. 11/10 continue tx. more talkative, although guarded. No overt delusional content reported. denies SI/HI. 11/11: will order CMP for tomorrow morning given uncertainty ref PO intake 11/13: increase in BUN and Cr due to dehydration 11/14: continue tx. refuses medications but unable to provide explanation as to why not show understanding in terms of effects of decrease oral intake on renal function. 11/15: unchanged from last week. intermittent meals, BUN mildly elevated. court tomorrow. 11/16: court deferred for BEHZAD. no change in presentation. place on 1:1 for observation of PO intake. lying all day in bed, PMR, with shades drawn, for a darkened room. refusing medications. 11/17: DC olanzapine. offer SSRI. eating and drinking this morning, after having been put on 1:1. continue current mgmt. commitment hearing likely next . 11/18: refusing to look at or speak with MD. clearly ate and drank more yesterday, up and out of room more. nevertheless, spends vast majority of his time lying in bed in the dark. refusing meds. 11/19: ate more yesterday and last night. DC 1:1. appearing catatonic today, no eye blink staring at ceiling not responding. 11/20: moderate PO intake yesterday. appearing more catatonic today. continue to offer meds. 11/21: catatonic. no report on sleep or PO intake as pt is off 1:1. continue to offer meds. 11/22: catatonic. labs reassuring. court tomorrow. 11/23: catatonic. committed and ordered meds in court. 11/24: start ativan 2 mg TID with IM back-up for catatonia. plan to start neuroleptics and anti-depressants once catatonia improved. 11/25: decrease ativan to 1mg tid as he had no response to 2 mg and might be experiencing sedation from it 11/26: More alert on lower ativan dose but remains non-verbal and lying in bed 11/27 increase ativan back to 2mg po TID back up IM. 11/28: T/C gaining IV access to facilitate delivery of ativan; plan to increase to QID dosing. remains catatonic. case d/w nursing administration and medical cash posterdirector of catering. 11/29: gain IV access today, start ativan 2 mg IV QID. was out of bed, eating and speaking yesterday evening. 11/30: 1:1 as he removed IV access, apparently. was up in kitchen getting food on evening shift. continue current mgmt. 12/01: up twice in the past 24H, ate some, swore that lights in his room had been turned on. T/C adding valium 2 mg TID IV (per court order, maximum of 8 mg ativan may be given per day) and/or antipsychotic to regimen. case D/W david. 12/02: Check comprehensive metabolic labs in AM. Continue current management. 12/03: Improved post IM dose of Zyprexa last night. Ate better. More communicative. Continue current plan of care. 12/04: some improvement over w/e. increase IM zyprexa t HS to 5 mg each. continue current mgmt. 12/05: continue current mgmt. up several times yesterday, had conversation with reza nurse, observed eating dinner. 12/06: less active yesterday. did not receive IM zyprexa last night. continue current mgmt. 12/07: received zyprexa IM last night. up for breakfast this morning, exchanged some words with MD for first time in weeks. indicated he has a depressed mood. not opposed to anti-depressant. will start prozac liquid daily. 12/08: lying in bed, not responsive. several interactions with staff yesterday, limited and often non-verbal. refused PO prozac. continue current mgmt. 12/09: still catatonic. 12/10 still catatonic 12/11/22 Patient intermittently responsive often refusing p.o. meds may require ECT 12/12/2022 Patient remains mostly electively mute intermittently catatonic with some periods of verbal discourse 12/13/22 more verbal hx of recurrent depression still gets iv ativan refuses po meds 12 14 22 Continue Ativan and intravenous is encouraged fluoxetine continue olanzapine 5 mg patient does not appear to be psychotic would encourage ECT 12/15/2022 Continue plan of care labs reviewed sodium creatinine within normal limits Informed Consent: does not understand Reason for continued inpatient stay Substantial Risk for: harm to self and inability to function Time Spent With Patient Time: Total time managing care of this patient today ____ minutes.
[2022-12-15] MEDS: OLANZapine 10 MG VIAL 5 MG IM (23:22)
[2022-12-16] VITALS (7 sets, daily range): BP systolic 101–105; BP diastolic 56–61; PULSE 68–78; RESP 16–18; TEMP 36.2–37.1; O2SAT 95–98
[2022-12-16] MEDS: LORazepam 2 MG/ML VIAL IVPUSH ×3 (08:52→16:09)
--- NOTE | 2022-12-16 12:58 | HO.PSYCHPN ---
Subjective Subjective Date of Service: 12/16/22 Reason For Visit: catatonia Subjective Notes: Section 8 Interim History: Patient was seen and discussed in rounds today. Records and plans were reviewed. Laboratory studies were reviewed and within range. He continues to have be in bed a lot. Little response. Refusing a lot of care. He is eating a little better and we will encourage liquids. He continues to be quite depressed. The nurses reported that he made think that the Zyprexa might be interfering with his sleep! I will switch him to a.m. use to see if it makes a difference Review of Systems Review of Systems Yes Unobtainable due to mental status Mental Status Exam Mental Status Exam Narrative: In today's visit he was in bed but unresponsive. Diagnostics Vital Signs (24Hr): Vital Signs - 24 hr 12/15/22 13:08 12/15/22 13:44 12/15/22 16:56 Temperature 97.6 F 97.8 F 97.9 F Pulse Rate 65 62 81 Respiratory Rate 16 18 16 Blood Pressure 100/59 L 101/58 L 112/71 Pulse Oximetry 96 98 96 Oxygen Delivery Method Room Air Room Air Room Air 12/15/22 17:29 12/15/22 22:41 12/15/22 23:34 Temperature 97.5 F 97.4 F Pulse Rate 87 91 81 Respiratory Rate 16 16 Blood Pressure 113/65 100/58 L 103/56 L Pulse Oximetry 96 94 Oxygen Delivery Method Room Air Room Air 12/16/22 08:50 12/16/22 09:20 Temperature 98.1 F Pulse Rate 78 70 Respiratory Rate 18 18 Blood Pressure 105/61 Pulse Oximetry 98 97 Oxygen Delivery Method Room Air Room Air Labs 12/15/22 09:53 Labs: Laboratory Results - last 48 hr 12/15/22 09:53 Sodium 139 Potassium 4.3 Chloride 106 Carbon Dioxide 23 Anion Gap 14 BUN 11 Creatinine 0.74 Estim Creat Clear Calc TNP Estimated GFR > 60 Random Glucose 86 Calcium 9.3 Total Bilirubin 0.7 AST 18 ALT 16 Alkaline Phosphatase 55 Total Protein 6.5 Albumin 3.6 Medications Medications Current Medications Acetaminophen (Acetaminophen 325 Mg Tablet) 650 mg PO Q6H PRN PRN Reason: Headache/Pain Mild Scale (1-3) Al Hydroxide/Mg Hydroxide (Magnesium Hydrox/Alum Hydrox 30 Ml Oral.Susp) 30 ml PO Q6H PRN PRN Reason: Heartburn/Nausea Artificial Tears (Artificial Tears 15 Ml Drops) 2 drop EYE-BOTH Q4H PRN PRN Reason: Dry Eyes Last Admin: 12/02/22 14:19 Dose: 2 drop Fluoxetine HCl (Fluoxetine Hcl Oral Solution 20 Mg/5 Ml Solution) 20 mg PO DAILY [facility] Last Admin: 12/16/22 08:56 Dose: Not Given Hydroxyzine HCl (Hydroxyzine Hcl 25 Mg Tablet) 25 mg PO Q6H PRN PRN Reason: Anxiety Lorazepam (Lorazepam 2 Mg/Ml Vial) 2 mg IVPUSH QID [facility] Last Admin: 12/16/22 08:52 Dose: 2 mg Magnesium Hydroxide (Milk Of Magnesia 30 Ml Oral.Susp) 30 ml PO DAILY PRN PRN Reason: Constipation Olanzapine (Olanzapine Odt 10 Mg Tab.Rapdis) 10 mg TRANSLINGU BEDTIME [facility] Last Admin: 12/15/22 23:22 Dose: Not Given Olanzapine (Olanzapine 10 Mg Vial) 5 mg IM BEDTIME PRN PRN Reason: refusal of PO Last Admin: 12/15/22 23:22 Dose: 5 mg Trazodone HCl (Trazodone Hcl 50 Mg Tablet) 50 mg PO BEDTIME PRN PRN Reason: Insomnia Allergies Allergies Allergy/AdvReac Type Severity Reaction Status Date / Time No Known Allergies Allergy Verified 10/31/22 14:47 Assessment & Plan Assessment & Plan (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 11/04: pt refusing meds and not taking anything PO. nevertheless appears slightly improved from yesterday, more verbal with less latency of response. advised to take meds and fluids. 11/05: ate and drank some last night. refusing meds. no longer grossly catatonic. continue current mgmt. 11/06: no PO intake in past 24H. refusing meds. parnell warning, 3-day up . 11/07: no food, had some water last night. recheck BMP. completed commitment paperwork. refusing meds. 11/08: denies eating or drinking but yesterday's breakfast tray was empty on return. commitment filed. refusing meds. 11/09: continues without PO intake, not attending to ADLs. refusing meds. hearing scheduled for next . labs from yesterday not indicative of concerning dehydration. 11/10 continue tx. more talkative, although guarded. No overt delusional content reported. denies SI/HI. 11/11: will order CMP for tomorrow morning given uncertainty ref PO intake 11/13: increase in BUN and Cr due to dehydration 11/14: continue tx. refuses medications but unable to provide explanation as to why not show understanding in terms of effects of decrease oral intake on renal function. 11/15: unchanged from last week. intermittent meals, BUN mildly elevated. court tomorrow. 11/16: court deferred for BEHZAD. no change in presentation. place on 1:1 for observation of PO intake. lying all day in bed, PMR, with shades drawn, for a darkened room. refusing medications. 11/17: DC olanzapine. offer SSRI. eating and drinking this morning, after having been put on 1:1. continue current mgmt. commitment hearing likely next . 11/18: refusing to look at or speak with MD. clearly ate and drank more yesterday, up and out of room more. nevertheless, spends vast majority of his time lying in bed in the dark. refusing meds. 11/19: ate more yesterday and last night. DC 1:1. appearing catatonic today, no eye blink staring at ceiling not responding. 11/20: moderate PO intake yesterday. appearing more catatonic today. continue to offer meds. 11/21: catatonic. no report on sleep or PO intake as pt is off 1:1. continue to offer meds. 11/22: catatonic. labs reassuring. court tomorrow. 11/23: catatonic. committed and ordered meds in court. 11/24: start ativan 2 mg TID with IM back-up for catatonia. plan to start neuroleptics and anti-depressants once catatonia improved. 11/25: decrease ativan to 1mg tid as he had no response to 2 mg and might be experiencing sedation from it 11/26: More alert on lower ativan dose but remains non-verbal and lying in bed 11/27 increase ativan back to 2mg po TID back up IM. 11/28: T/C gaining IV access to facilitate delivery of ativan; plan to increase to QID dosing. remains catatonic. case d/w nursing administration and medical social workerindustrial engineering director. 11/29: gain IV access today, start ativan 2 mg IV QID. was out of bed, eating and speaking yesterday evening. 11/30: 1:1 as he removed IV access, apparently. was up in kitchen getting food on evening shift. continue current mgmt. 12/01: up twice in the past 24H, ate some, swore that lights in his room had been turned on. T/C adding valium 2 mg TID IV (per court order, maximum of 8 mg ativan may be given per day) and/or antipsychotic to regimen. case D/W david. 12/02: Check comprehensive metabolic labs in AM. Continue current management. 12/03: Improved post IM dose of Zyprexa last night. Ate better. More communicative. Continue current plan of care. 12/04: some improvement over w/e. increase IM zyprexa t HS to 5 mg each. continue current mgmt. 12/05: continue current mgmt. up several times yesterday, had conversation with reza nurse, observed eating dinner. 12/06: less active yesterday. did not receive IM zyprexa last night. continue current mgmt. 12/07: received zyprexa IM last night. up for breakfast this morning, exchanged some words with MD for first time in weeks. indicated he has a depressed mood. not opposed to anti-depressant. will start prozac liquid daily. 12/08: lying in bed, not responsive. several interactions with staff yesterday, limited and often non-verbal. refused PO prozac. continue current mgmt. 12/09: still catatonic. 12/10 still catatonic 12/11/22 Patient intermittently responsive often refusing p.o. meds may require ECT 12/12/2022 Patient remains mostly electively mute intermittently catatonic with some periods of verbal discourse 12/13/22 more verbal hx of recurrent depression still gets iv ativan refuses po meds 12 14 22 Continue Ativan and intravenous is encouraged fluoxetine continue olanzapine 5 mg patient does not appear to be psychotic would encourage ECT 12/15/2022 Continue plan of care labs reviewed sodium creatinine within normal limits 12/16: Continue current regimen and plans. Switch Zyprexa to a.m. use. Reason for continued inpatient stay Substantial Risk for: inability to function and med/psych decompensation Time Spent With Patient Time: Total time managing care of this patient today ____ minutes.
[2022-12-16] MEDS: OLANZapine 10 MG VIAL 5 MG IM (14:44)
--- NOTE | 2022-12-16 14:49 | PC.NURSE ---
pt refused to take zyprexa po was given im per orders
--- NOTE | 2022-12-17 04:03 | PC.NURSE ---
Pt had been laying in bed when TW approached to take vitals prior to administering scheduled IV push ativan. Pt responded to TW entering the room and introducing herself, asking how the pt was doing this evening and trying to make light conversation. Responses were very minimal, mostly 1 word answers, however pt did acknowledge TW and offered his arm to have his blood pressure taken. As pt's blood pressure was being assessed, pt suddenly became agitated and abruptly attempted to remove the blood pressure cuff, stating what the fuck? , TW was unable to understand any more of what the pt had said. TW stopped the blood pressure machine and asked pt if he was ok and what had suddenly upset him, however he did not offer any reason or explanation to TW. Pt stated that he was all set with having his vitals taken and began to remove the blood pressure cuff, and was resistant to any further care or questioning. Provider utility person notified, ativan via IV push held x1 per MD, as pt was resistant to any care, no apparent signs of catatonia noted/observed.
[2022-12-17 08:00] VITALS: BP 102/58; PULSE 70; RESP 18; TEMP 36.6; O2SAT 95
[2022-12-17] MEDS: OLANZapine 10 MG VIAL 5 MG IM ×2 (08:35→21:49)
[2022-12-17] MEDS: LORazepam 2 MG/ML VIAL IVPUSH ×3 (08:35→21:46)
[2022-12-17 09:00] VITALS: BP 106/63; PULSE 70; RESP 18; O2SAT 96
--- NOTE | 2022-12-17 10:39 | HO.PSYCHPN ---
Subjective Subjective Date of Service: 12/17/22 Reason For Visit: catatonia Subjective Notes: Section 8 Interim History: Patient was seen and discussed in rounds today. Records and plans were reviewed. He yesterday he ended up with the Ativan 2 mg less in the evening and this morning he is more alert, eating at his table in his room, more interactive with me and the nurses. It appears that the Zyprexa is helpful. I decreased his Ativan to 2 mg t.i.d. IV push, increase the Zyprexa to 10 mg b.i.d.. No complaints. No side effects. No other changes were made Medication Compliance: Intermittent Review of Systems Review of Systems Yes Unobtainable due to mental status Mental Status Exam Mental Status Exam Narrative: In today's visit he is alert, minimally interactive but comparatively a lot more interactive considering the last day or so more. He denies any side effects. He denies any suicidal ideations.. Cognitively could not be assessed. Judgment could not be assessed. Diagnostics Vital Signs (24Hr): Vital Signs - 24 hr 12/16/22 13:17 12/16/22 13:42 12/16/22 16:08 Temperature 97.2 F 98.8 F Pulse Rate 72 68 68 Respiratory Rate 18 16 16 Blood Pressure 101/56 L 105/59 L 105/58 L Pulse Oximetry 98 95 Oxygen Delivery Method Room Air Room Air Room Air 12/16/22 17:24 12/16/22 22:05 12/17/22 08:00 Temperature 97.9 F Pulse Rate 70 70 Respiratory Rate 16 16 18 Blood Pressure 103/56 L 102/58 L Pulse Oximetry 98 95 Oxygen Delivery Method Room Air Room Air 12/17/22 09:00 Temperature Pulse Rate 70 Respiratory Rate 18 Blood Pressure 106/63 Pulse Oximetry 96 Oxygen Delivery Method Room Air Labs 12/15/22 09:53 Labs: Laboratory Results - last 48 hr 12/15/22 09:53 Sodium 139 Potassium 4.3 Chloride 106 Carbon Dioxide 23 Anion Gap 14 BUN 11 Creatinine 0.74 Estim Creat Clear Calc TNP Estimated GFR > 60 Random Glucose 86 Calcium 9.3 Total Bilirubin 0.7 AST 18 ALT 16 Alkaline Phosphatase 55 Total Protein 6.5 Albumin 3.6 Medications Medications Current Medications Acetaminophen (Acetaminophen 325 Mg Tablet) 650 mg PO Q6H PRN PRN Reason: Headache/Pain Mild Scale (1-3) Al Hydroxide/Mg Hydroxide (Magnesium Hydrox/Alum Hydrox 30 Ml Oral.Susp) 30 ml PO Q6H PRN PRN Reason: Heartburn/Nausea Artificial Tears (Artificial Tears 15 Ml Drops) 2 drop EYE-BOTH Q4H PRN PRN Reason: Dry Eyes Last Admin: 12/02/22 14:19 Dose: 2 drop Fluoxetine HCl (Fluoxetine Hcl Oral Solution 20 Mg/5 Ml Solution) 20 mg PO DAILY [facility] Last Admin: 12/17/22 08:46 Dose: Not Given Hydroxyzine HCl (Hydroxyzine Hcl 25 Mg Tablet) 25 mg PO Q6H PRN PRN Reason: Anxiety Lorazepam (Lorazepam 2 Mg/Ml Vial) 2 mg IVPUSH QID [facility] Last Admin: 12/17/22 08:35 Dose: 2 mg Magnesium Hydroxide (Milk Of Magnesia 30 Ml Oral.Susp) 30 ml PO DAILY PRN PRN Reason: Constipation Olanzapine (Olanzapine Odt 10 Mg Tab.Rapdis) 10 mg TRANSLINGU DAILY [facility] Last Admin: 12/17/22 08:47 Dose: Not Given Olanzapine (Olanzapine 10 Mg Vial) 5 mg IM DAILY PRN PRN Reason: refusal of PO Last Admin: 12/17/22 08:35 Dose: 5 mg Trazodone HCl (Trazodone Hcl 50 Mg Tablet) 50 mg PO BEDTIME PRN PRN Reason: Insomnia Allergies Allergies Allergy/AdvReac Type Severity Reaction Status Date / Time No Known Allergies Allergy Verified 10/31/22 14:47 Assessment & Plan Assessment & Plan (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 11/04: pt refusing meds and not taking anything PO. nevertheless appears slightly improved from yesterday, more verbal with less latency of response. advised to take meds and fluids. 11/05: ate and drank some last night. refusing meds. no longer grossly catatonic. continue current mgmt. 11/06: no PO intake in past 24H. refusing meds. parnell warning, 3-day up . 11/07: no food, had some water last night. recheck BMP. completed commitment paperwork. refusing meds. 11/08: denies eating or drinking but yesterday's breakfast tray was empty on return. commitment filed. refusing meds. 11/09: continues without PO intake, not attending to ADLs. refusing meds. hearing scheduled for next . labs from yesterday not indicative of concerning dehydration. 11/10 continue tx. more talkative, although guarded. No overt delusional content reported. denies SI/HI. 11/11: will order CMP for tomorrow morning given uncertainty ref PO intake 11/13: increase in BUN and Cr due to dehydration 11/14: continue tx. refuses medications but unable to provide explanation as to why not show understanding in terms of effects of decrease oral intake on renal function. 11/15: unchanged from last week. intermittent meals, BUN mildly elevated. court tomorrow. 11/16: court deferred for BEHZAD. no change in presentation. place on 1:1 for observation of PO intake. lying all day in bed, PMR, with shades drawn, for a darkened room. refusing medications. 11/17: DC olanzapine. offer SSRI. eating and drinking this morning, after having been put on 1:1. continue current mgmt. commitment hearing likely next . 11/18: refusing to look at or speak with MD. clearly ate and drank more yesterday, up and out of room more. nevertheless, spends vast majority of his time lying in bed in the dark. refusing meds. 11/19: ate more yesterday and last night. DC 1:1. appearing catatonic today, no eye blink staring at ceiling not responding. 11/20: moderate PO intake yesterday. appearing more catatonic today. continue to offer meds. 11/21: catatonic. no report on sleep or PO intake as pt is off 1:1. continue to offer meds. 11/22: catatonic. labs reassuring. court tomorrow. 11/23: catatonic. committed and ordered meds in court. 11/24: start ativan 2 mg TID with IM back-up for catatonia. plan to start neuroleptics and anti-depressants once catatonia improved. 11/25: decrease ativan to 1mg tid as he had no response to 2 mg and might be experiencing sedation from it 11/26: More alert on lower ativan dose but remains non-verbal and lying in bed 11/27 increase ativan back to 2mg po TID back up IM. 11/28: T/C gaining IV access to facilitate delivery of ativan; plan to increase to QID dosing. remains catatonic. case d/w nursing administration and bio medical techniciandirector of vital statistics. 11/29: gain IV access today, start ativan 2 mg IV QID. was out of bed, eating and speaking yesterday evening. 11/30: 1:1 as he removed IV access, apparently. was up in kitchen getting food on evening shift. continue current mgmt. 12/01: up twice in the past 24H, ate some, swore that lights in his room had been turned on. T/C adding valium 2 mg TID IV (per court order, maximum of 8 mg ativan may be given per day) and/or antipsychotic to regimen. case D/W david. 12/02: Check comprehensive metabolic labs in AM. Continue current management. 12/03: Improved post IM dose of Zyprexa last night. Ate better. More communicative. Continue current plan of care. 12/04: some improvement over w/e. increase IM zyprexa t HS to 5 mg each. continue current mgmt. 12/05: continue current mgmt. up several times yesterday, had conversation with reza nurse, observed eating dinner. 12/06: less active yesterday. did not receive IM zyprexa last night. continue current mgmt. 12/07: received zyprexa IM last night. up for breakfast this morning, exchanged some words with MD for first time in weeks. indicated he has a depressed mood. not opposed to anti-depressant. will start prozac liquid daily. 12/08: lying in bed, not responsive. several interactions with staff yesterday, limited and often non-verbal. refused PO prozac. continue current mgmt. 12/09: still catatonic. 12/10 still catatonic 12/11/22 Patient intermittently responsive often refusing p.o. meds may require ECT 12/12/2022 Patient remains mostly electively mute intermittently catatonic with some periods of verbal discourse 12/13/22 more verbal hx of recurrent depression still gets iv ativan refuses po meds 12 14 22 Continue Ativan and intravenous is encouraged fluoxetine continue olanzapine 5 mg patient does not appear to be psychotic would encourage ECT 12/15/2022 Continue plan of care labs reviewed sodium creatinine within normal limits 12/16: Continue current regimen and plans. Switch Zyprexa to a.m. use. 12/17: Continue current regimen and plans. Decrease Ativan by 2 mg and increase Zyprexa by 10 mg Patient educated on: medication risk/benefits and therapeutic strategies Reason for continued inpatient stay Substantial Risk for: inability to function and med/psych decompensation Time Spent With Patient Time: Total time managing care of this patient today ____ minutes.
[2022-12-17 15:30] VITALS: BP 107/56; PULSE 81; RESP 18; TEMP 37; O2SAT 97
[2022-12-17 21:14] VITALS: BP 102/57; PULSE 84; RESP 16; TEMP 36.8; O2SAT 95
[2022-12-18 08:35] VITALS: BP 119/64; PULSE 79; RESP 16; TEMP 36.8; O2SAT 94
[2022-12-18] MEDS: OLANZapine 10 MG VIAL 5 MG IM ×2 (10:13→23:01)
[2022-12-18] MEDS: LORazepam 2 MG/ML VIAL IVPUSH ×3 (10:15→23:07)
--- NOTE | 2022-12-18 13:10 | P.PNPSI_ITS ---
Subjective Subjective Date of Service: 12/18/22 Reason For Visit: catatonia Interim History: lying in bed in darkened room, eyes closed and motionless, not responding to verbal prompts. per staff, intermittently awake and alert. said he's feeling better. mostly in bed eyes closed or staring at the ceiling. upset at zyprexa dosing increase. awaiting hearing date for ECT. Mental Status Exam Mental Status Exam Narrative: Very poor self-care. found lying in bed motionless. not cooperative. affect masked. mood not assessed. no SI/HI/AVH expressed. Insight and judgment appe ars limited Diagnostics Vital Signs (24Hr): Vital Signs - 24 hr 12/17/22 15:30 12/17/22 21:14 12/18/22 08:35 Temperature 98.6 F 98.3 F 98.3 F Pulse Rate 81 84 79 Respiratory Rate 18 16 16 Blood Pressure 107/56 L 102/57 L 119/64 Pulse Oximetry 97 95 94 Oxygen Delivery Method Room Air Room Air Room Air Labs 12/15/22 09:53 Medications Medications Current Medications Acetaminophen (Acetaminophen 325 Mg Tablet) 650 mg PO Q6H PRN PRN Reason: Headache/Pain Mild Scale (1-3) Al Hydroxide/Mg Hydroxide (Magnesium Hydrox/Alum Hydrox 30 Ml Oral.Susp) 30 ml PO Q6H PRN PRN Reason: Heartburn/Nausea Artificial Tears (Artificial Tears 15 Ml Drops) 2 drop EYE-BOTH Q4H PRN PRN Reason: Dry Eyes Last Admin: 12/02/22 14:19 Dose: 2 drop Fluoxetine HCl (Fluoxetine Hcl Oral Solution 20 Mg/5 Ml Solution) 20 mg PO D AILY [facility] Last Admin: 12/18/22 10:30 Dose: Not Given Hydroxyzine HCl (Hydroxyzine Hcl 25 Mg Tablet) 25 mg PO Q6H PRN PRN Reason: Anxiety Lorazepam (Lorazepam 2 Mg/Ml Vial) 2 mg IVPUSH TID [facility] Last Admin: 12/18/22 10:15 Dose: 2 mg Magnesium Hydroxide (Milk Of Magnesia 30 Ml Oral.Susp) 30 ml PO DAILY PRN PRN Reason: Constipation Olanzapine (Olanzapine Odt 10 Mg Tab.Rapdis) 10 mg TRANSLINGU BID [facility] Last Admin: 12/18/22 10:30 Dose: Not Given Olanzapine (Olanzapine 10 Mg Vial) 5 mg IM BID PRN PRN Reason: refusal of PO Last Admin: 12/18/22 10:13 Dose: 5 mg Trazodone HCl (Trazodone Hcl 50 Mg Tablet) 50 mg PO BEDTIME PRN PRN Reason: Insomnia Allergies Allergies Allergy/AdvReac Type Severity Reaction Status Date / Time No Known Allergies Allergy Verified 10/31/22 14:47 Assessment & Plan Assessment & Plan (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 11/04: pt refusing meds and not taking anything PO. nevertheless appears slightly improved from yesterday, more verbal with less latency of response. advised to take meds and fluids. 11/05: ate and drank some last night. refusing meds. no longer grossly catatonic. continue current mgmt. 11/06: no PO intake in past 24H. refusing meds. parnell warning, 3-day up . 11/07: no food, had some water last night. recheck BMP. completed commitment paperwork. refusing meds. 11/08: denies eating or drinking but yesterday's breakfast tray was empty on return. commitment filed. refusing meds. 11/09: continues without PO intake, not attending to ADLs. refusing meds. hearing scheduled for next . labs from yesterday not indicative of concerning dehydration. 11/10 continue tx. more talkative, although guarded. No overt delusional content reported. denies SI/HI. 11/11: will order CMP for tomorrow morning given uncertainty ref PO intake 11/13: increase in BUN and Cr due to dehydration 11/14: continue tx. refuses medications but unable to provide explanation as to why not show understanding in terms of effects of decrease oral intake on renal function. 11/15: unchanged from last week. intermittent meals, BUN mildly elevated. court tomorrow. 11/16: court deferred for BEHZAD. no change in presentation. place on 1:1 for observation of PO intake. lying all day in bed, PMR, with shades drawn, for a darkened room. refusing medications. 11/17: DC olanzapine. offer SSRI. eating and drinking this morning, after having been put on 1:1. continue current mgmt. commitment hearing likely next . 11/18: refusing to look at or speak with MD. clearly ate and drank more yesterday, up and out of room more. nevertheless, spends vast majority of his time lying in bed in the dark. refusing meds. 11/19: ate more yesterday and last night. DC 1:1. appearing catatonic today, no eye blink staring at ceiling not responding. 11/20: moderate PO intake yesterday. appearing more catatonic today. continue to offer meds. 11/21: catatonic. no report on sleep or PO intake as pt is off 1:1. continue to offer meds. 11/22: catatonic. labs reassuring. court tomorrow. 11/23: catatonic. committed and ordered meds in court. 11/24: start ativan 2 mg TID with IM back-up for catatonia. plan to start neuroleptics and anti-depressants once catatonia improved. 11/25: decrease ativan to 1mg tid as he had no response to 2 mg and might be experiencing sedation from it 11/26: More alert on lower ativan dose but remains non-verbal and lying in bed 11/27 increase ativan back to 2mg po TID back up IM. 11/28: T/C gaining IV access to facilitate delivery of ativan; plan to increase to QID dosing. remains catatonic. case d/w nursing administration and resident medical officerrecycling director. 11/29: gain IV access today, start ativan 2 mg IV QID. was out of bed, eating and speaking yesterday evening. 11/30: 1:1 as he removed IV access, apparently. was up in kitchen getting food on evening shift. continue current mgmt. 12/01: up twice in the past 24H, ate some, swore that lights in his room had been turned on. T/C adding valium 2 mg TID IV (per court order, maximum of 8 mg ativan may be given per day) and/or antipsychotic to regimen. case D/W david. 12/02: Check comprehensive metabolic labs in AM. Continue current management. 12/03: Improved post IM dose of Zyprexa last night. Ate better. More communicative. Continue current plan of care. 12/04: some improvement over w/e. increase IM zyprexa t HS to 5 mg each. continue current mgmt. 12/05: continue current mgmt. up several times yesterday, had conversation with reza nurse, observed eating dinner. 12/06: less active yesterday. did not receive IM zyprexa last night. continue current mgmt. 12/07: received zyprexa IM last night. up for breakfast this morning, exchanged some words with MD for first time in weeks. indicated he has a depressed mood. not opposed to anti-depressant. will start prozac liquid daily. 12/08: lying in bed, not responsive. several interactions with staff yesterday, limited and often non-verbal. refused PO prozac. continue current mgmt. 12/09: still catatonic. 12/10 still catatonic 12/11/22 Patient intermittently responsive often refusing p.o. meds may require ECT 12/12/2022 Patient remains mostly electively mute intermittently catatonic with some periods of verbal discourse 12/13/22 more verbal hx of recurrent depression still gets iv ativan refuses po meds 12 14 22 Continue Ativan and intravenous is encouraged fluoxetine continue olanzapine 5 mg patient does not appear to be psychotic would encourage ECT 12/15/2022 Continue plan of care labs reviewed sodium creatinine within normal limits 12/16: Continue current regimen and plans. Switch Zyprexa to a.m. use. 12/17: Continue current regimen and plans. Decrease Ativan by 2 mg and increase Zyprexa by 10 mg 12/18: continue current regimen. no change in catatonic presentation. Reason for continued inpatient stay Substantial Risk for: inability to function and rapid decompensation Time Spent With Patient Time: Total time managing care of this patient today __25__ minutes.
[2022-12-18 18:00] VITALS: RESP 18
[2022-12-19 08:00] VITALS: BP 101/60; PULSE 60; RESP 16; TEMP 36.2; O2SAT 95
[2022-12-19] MEDS: LORazepam 2 MG/ML VIAL IVPUSH ×4 (08:42→22:37)
[2022-12-19] MEDS: OLANZapine 10 MG VIAL 5 MG IM ×2 (08:44→20:40)
[2022-12-19 09:45] VITALS: BP 104/65; PULSE 62; RESP 16; TEMP 36.7; O2SAT 96
--- NOTE | 2022-12-19 13:42 | HO.PSYCHPN ---
Subjective Subjective Date of Service: 12/19/22 Reason For Visit: catatonia Interim History: lying in bed, covered with blanket. no response to attempts to engage. per staff, appeared to have been in bed all day and NOC yesterday. no response to attempts to engage him. did not appear to have eaten, unclear if sleeping. Mental Status Exam Mental Status Exam Narrative: Very poor self-care. found lying in bed motionless. not cooperative. mood not assessed. no SI/HI/AVH expressed. Insight and judgment appears limited Diagnostics Vital Signs (24Hr): Vital Signs - 24 hr 12/18/22 18:00 12/19/22 08:00 12/19/22 09:45 Temperature 97.1 F 98.1 F Pulse Rate 60 62 Respiratory Rate 18 16 16 Blood Pressure 101/60 104/65 Pulse Oximetry 95 96 Oxygen Delivery Method Room Air Room Air Labs 12/15/22 09:53 Medications Medications Current Medications Acetaminophen (Acetaminophen 325 Mg Tablet) 650 mg PO Q6H PRN PRN Reason: Headache/Pain Mild Scale (1-3) Al Hydroxide/Mg Hydroxide (Magnesium Hydrox/Alum Hydrox 30 Ml Oral.Susp) 30 ml PO Q6H PRN PRN Reason: Heartburn/Nausea Artificial Tears (Artificial Tears 15 Ml Drops) 2 drop EYE-BOTH Q4H PRN PRN Reason: Dry Eyes Last Admin: 12/02/22 14:19 Dose: 2 drop Fluoxetine HCl (Fluoxetine Hcl Oral Solution 20 Mg/5 Ml Solution) 20 mg PO DAILY [facility] Last Admin: 12/19/22 09:50 Dose: Not Given Hydroxyzine HCl (Hydroxyzine Hcl 25 Mg Tablet) 25 mg PO Q6H PRN PRN Reason: Anxiety Magnesium Hydroxide (Milk Of Magnesia 30 Ml Oral.Susp) 30 ml PO DAILY PRN PRN Reason: Constipation Olanzapine (Olanzapine Odt 10 Mg Tab.Rapdis) 10 mg TRANSLINGU BID [facility] Last Admin: 12/19/22 09:50 Dose: Not Given Olanzapine (Olanzapine 10 Mg Vial) 5 mg IM BID PRN PRN Reason: refusal of PO Last Admin: 12/19/22 08:44 Dose: 5 mg Trazodone HCl (Trazodone Hcl 50 Mg Tablet) 50 mg PO BEDTIME PRN PRN Reason: Insomnia Allergies Allergies Allergy/AdvReac Type Severity Reaction Status Date / Time No Known Allergies Allergy Verified 10/31/22 14:47 Assessment & Plan Assessment & Plan (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 11/04: pt refusing meds and not taking anything PO. nevertheless appears slightly improved from yesterday, more verbal with less latency of response. advised to take meds and fluids. 11/05: ate and drank some last night. refusing meds. no longer grossly catatonic. continue current mgmt. 11/06: no PO intake in past 24H. refusing meds. parnell warning, 3-day up . 11/07: no food, had some water last night. recheck BMP. completed commitment paperwork. refusing meds. 11/08: denies eating or drinking but yesterday's breakfast tray was empty on return. commitment filed. refusing meds. 11/09: continues without PO intake, not attending to ADLs. refusing meds. hearing scheduled for next . labs from yesterday not indicative of concerning dehydration. 11/10 continue tx. more talkative, although guarded. No overt delusional content reported. denies SI/HI. 11/11: will order CMP for tomorrow morning given uncertainty ref PO intake 11/13: increase in BUN and Cr due to dehydration 11/14: continue tx. refuses medications but unable to provide explanation as to why not show understanding in terms of effects of decrease oral intake on renal function. 11/15: unchanged from last week. intermittent meals, BUN mildly elevated. court tomorrow. 11/16: court deferred for BEHZAD. no change in presentation. place on 1:1 for observation of PO intake. lying all day in bed, PMR, with shades drawn, for a darkened room. refusing medications. 11/17: DC olanzapine. offer SSRI. eating and drinking this morning, after having been put on 1:1. continue current mgmt. commitment hearing likely next . 11/18: refusing to look at or speak with MD. clearly ate and drank more yesterday, up and out of room more. nevertheless, spends vast majority of his time lying in bed in the dark. refusing meds. 11/19: ate more yesterday and last night. DC 1:1. appearing catatonic today, no eye blink staring at ceiling not responding. 11/20: moderate PO intake yesterday. appearing more catatonic today. continue to offer meds. 11/21: catatonic. no report on sleep or PO intake as pt is off 1:1. continue to offer meds. 11/22: catatonic. labs reassuring. court tomorrow. 11/23: catatonic. committed and ordered meds in court. 11/24: start ativan 2 mg TID with IM back-up for catatonia. plan to start neuroleptics and anti-depressants once catatonia improved. 11/25: decrease ativan to 1mg tid as he had no response to 2 mg and might be experiencing sedation from it 11/26: More alert on lower ativan dose but remains non-verbal and lying in bed 11/27 increase ativan back to 2mg po TID back up IM. 11/28: T/C gaining IV access to facilitate delivery of ativan; plan to increase to QID dosing. remains catatonic. case d/w nursing administration and medical economics consultantonline advertising director. 11/29: gain IV access today, start ativan 2 mg IV QID. was out of bed, eating and speaking yesterday evening. 11/30: 1:1 as he removed IV access, apparently. was up in kitchen getting food on evening shift. continue current mgmt. 12/01: up twice in the past 24H, ate some, swore that lights in his room had been turned on. T/C adding valium 2 mg TID IV (per court order, maximum of 8 mg ativan may be given per day) and/or antipsychotic to regimen. case D/W david. 12/02: Check comprehensive metabolic labs in AM. Continue current management. 12/03: Improved post IM dose of Zyprexa last night. Ate better. More communicative. Continue current plan of care. 12/04: some improvement over w/e. increase IM zyprexa t HS to 5 mg each. continue current mgmt. 12/05: continue current mgmt. up several times yesterday, had conversation with reza nurse, observed eating dinner. 12/06: less active yesterday. did not receive IM zyprexa last night. continue current mgmt. 12/07: received zyprexa IM last night. up for breakfast this morning, exchanged some words with MD for first time in weeks. indicated he has a depressed mood. not opposed to anti-depressant. will start prozac liquid daily. 12/08: lying in bed, not responsive. several interactions with staff yesterday, limited and often non-verbal. refused PO prozac. continue current mgmt. 12/09: still catatonic. 12/10 still catatonic 12/11/22 Patient intermittently responsive often refusing p.o. meds may require ECT 12/12/2022 Patient remains mostly electively mute intermittently catatonic with some periods of verbal discourse 12/13/22 more verbal hx of recurrent depression still gets iv ativan refuses po meds 12 14 22 Continue Ativan and intravenous is encouraged fluoxetine continue olanzapine 5 mg patient does not appear to be psychotic would encourage ECT 12/15/2022 Continue plan of care labs reviewed sodium creatinine within normal limits 12/16: Continue current regimen and plans. Switch Zyprexa to a.m. use. 12/17: Continue current regimen and plans. Decrease Ativan by 2 mg and increase Zyprexa by 10 mg 12/18: continue current regimen. no change in catatonic presentation. 12/19: return ativan to 2 mg QID and zyprexa to 10 mg QHS only. Reason for continued inpatient stay Substantial Risk for: harm to self, inability to function and rapid decompensation Time Spent With Patient Time: Total time managing care of this patient today ____ minutes.
[2022-12-19 14:30] VITALS: BP 103/60; PULSE 64; RESP 16; TEMP 36.4; O2SAT 96
[2022-12-19 20:30] VITALS: BP 111/58; PULSE 88; TEMP 36.7; O2SAT 93
--- NOTE | 2022-12-19 21:24 | PC.NURSE ---
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
[2022-12-20] MEDS: LORazepam 2 MG/ML VIAL IVPUSH ×4 (08:28→21:30)
[2022-12-20 09:19] VITALS: BP 106/63; PULSE 72; RESP 18; TEMP 36.7; O2SAT 96
[2022-12-20 13:34] VITALS: BP 109/62; PULSE 76
--- NOTE | 2022-12-20 13:52 | HO.PSYCHPN ---
Subjective Subjective Date of Service: 12/20/22 Reason For Visit: catatonia Interim History: no change in presentation. lying in bed, eyes closed, not responsive to voice. per staff, staring most of day yesterday. did inform RN last night that tessa was making him restless overnight. Mental Status Exam Mental Status Exam Narrative: Very poor self-care. found lying in bed motionless. not cooperative. mood not assessed. no SI/HI/AVH expressed. Insight and judgment appears limited Diagnostics Vital Signs (24Hr): Vital Signs - 24 hr 12/19/22 14:30 12/19/22 20:30 12/20/22 09:19 Temperature 97.5 F 98.1 F 98.1 F Pulse Rate 64 88 72 Respiratory Rate 16 18 Blood Pressure 103/60 111/58 L 106/63 Pulse Oximetry 96 93 96 Oxygen Delivery Method Room Air Room Air Room Air 12/20/22 13:34 Temperature Pulse Rate 76 Respiratory Rate Blood Pressure 109/62 Pulse Oximetry Oxygen Delivery Method Labs 12/15/22 09:53 Medications Medications Current Medications Acetaminophen (Acetaminophen 325 Mg Tablet) 650 mg PO Q6H PRN PRN Reason: Headache/Pain Mild Scale (1-3) Al Hydroxide/Mg Hydroxide (Magnesium Hydrox/Alum Hydrox 30 Ml Oral.Susp) 30 ml PO Q6H PRN PRN Reason: Heartburn/Nausea Artificial Tears (Artificial Tears 15 Ml Drops) 2 drop EYE-BOTH Q4H PRN PRN Reason: Dry Eyes Last Admin: 12/02/22 14:19 Dose: 2 drop Chlorpromazine HCl (Chlorpromazine Hcl 100 Mg Tablet) 100 mg PO BEDTIME [facility] Fluoxetine HCl (Fluoxetine Hcl Oral Solution 20 Mg/5 Ml Solution) 20 mg PO DAILY [facility] Last Admin: 12/20/22 08:32 Dose: Not Given Hydroxyzine HCl (Hydroxyzine Hcl 25 Mg Tablet) 25 mg PO Q6H PRN PRN Reason: Anxiety Lorazepam (Lorazepam 2 Mg/Ml Vial) 2 mg IVPUSH QID [facility] Last Admin: 12/20/22 13:13 Dose: 2 mg Magnesium Hydroxide (Milk Of Magnesia 30 Ml Oral.Susp) 30 ml PO DAILY PRN PRN Reason: Constipation Trazodone HCl (Trazodone Hcl 50 Mg Tablet) 50 mg PO BEDTIME PRN PRN Reason: Insomnia Allergies Allergies Allergy/AdvReac Type Severity Reaction Status Date / Time No Known Allergies Allergy Verified 10/31/22 14:47 Assessment & Plan Assessment & Plan (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 11/04: pt refusing meds and not taking anything PO. nevertheless appears slightly improved from yesterday, more verbal with less latency of response. advised to take meds and fluids. 11/05: ate and drank some last night. refusing meds. no longer grossly catatonic. continue current mgmt. 11/06: no PO intake in past 24H. refusing meds. parnell warning, 3-day up . 11/07: no food, had some water last night. recheck BMP. completed commitment paperwork. refusing meds. 11/08: denies eating or drinking but yesterday's breakfast tray was empty on return. commitment filed. refusing meds. 11/09: continues without PO intake, not attending to ADLs. refusing meds. hearing scheduled for next . labs from yesterday not indicative of concerning dehydration. 11/10 continue tx. more talkative, although guarded. No overt delusional content reported. denies SI/HI. 11/11: will order CMP for tomorrow morning given uncertainty ref PO intake 11/13: increase in BUN and Cr due to dehydration 11/14: continue tx. refuses medications but unable to provide explanation as to why not show understanding in terms of effects of decrease oral intake on renal function. 11/15: unchanged from last week. intermittent meals, BUN mildly elevated. court tomorrow. 11/16: court deferred for BEHZAD. no change in presentation. place on 1:1 for observation of PO intake. lying all day in bed, PMR, with shades drawn, for a darkened room. refusing medications. 11/17: DC olanzapine. offer SSRI. eating and drinking this morning, after having been put on 1:1. continue current mgmt. commitment hearing likely next . 11/18: refusing to look at or speak with MD. clearly ate and drank more yesterday, up and out of room more. nevertheless, spends vast majority of his time lying in bed in the dark. refusing meds. 11/19: ate more yesterday and last night. DC 1:1. appearing catatonic today, no eye blink staring at ceiling not responding. 11/20: moderate PO intake yesterday. appearing more catatonic today. continue to offer meds. 11/21: catatonic. no report on sleep or PO intake as pt is off 1:1. continue to offer meds. 11/22: catatonic. labs reassuring. court tomorrow. 11/23: catatonic. committed and ordered meds in court. 11/24: start ativan 2 mg TID with IM back-up for catatonia. plan to start neuroleptics and anti-depressants once catatonia improved. 11/25: decrease ativan to 1mg tid as he had no response to 2 mg and might be experiencing sedation from it 11/26: More alert on lower ativan dose but remains non-verbal and lying in bed 11/27 increase ativan back to 2mg po TID back up IM. 11/28: T/C gaining IV access to facilitate delivery of ativan; plan to increase to QID dosing. remains catatonic. case d/w nursing administration and medical staff assistantdirector of customer service. 11/29: gain IV access today, start ativan 2 mg IV QID. was out of bed, eating and speaking yesterday evening. 11/30: 1:1 as he removed IV access, apparently. was up in kitchen getting food on evening shift. continue current mgmt. 12/01: up twice in the past 24H, ate some, swore that lights in his room had been turned on. T/C adding valium 2 mg TID IV (per court order, maximum of 8 mg ativan may be given per day) and/or antipsychotic to regimen. case D/W david. 12/02: Check comprehensive metabolic labs in AM. Continue current management. 12/03: Improved post IM dose of Zyprexa last night. Ate better. More communicative. Continue current plan of care. 12/04: some improvement over w/e. increase IM zyprexa t HS to 5 mg each. continue current mgmt. 12/05: continue current mgmt. up several times yesterday, had conversation with reza hilton, observed eating dinner. 12/06: less active yesterday. did not receive IM zyprexa last night. continue current mgmt. 12/07: received zyprexa IM last night. up for breakfast this morning, exchanged some words with MD for first time in weeks. indicated he has a depressed mood. not opposed to anti-depressant. will start prozac liquid daily. 12/08: lying in bed, not responsive. several interactions with staff yesterday, limited and often non-verbal. refused PO prozac. continue current mgmt. 12/09: still catatonic. 12/10 still catatonic 12/11/22 Patient intermittently responsive often refusing p.o. meds may require ECT 12/12/2022 Patient remains mostly electively mute intermittently catatonic with some periods of verbal discourse 12/13/22 more verbal hx of recurrent depression still gets iv ativan refuses po meds 12 14 22 Continue Ativan and intravenous is encouraged fluoxetine continue olanzapine 5 mg patient does not appear to be psychotic would encourage ECT 12/15/2022 Continue plan of care labs reviewed sodium creatinine within normal limits 12/16: Continue current regimen and plans. Switch Zyprexa to a.m. use. 12/17: Continue current regimen and plans. Decrease Ativan by 2 mg and increase Zyprexa by 10 mg 12/18: continue current regimen. no change in catatonic presentation. 12/19: return ativan to 2 mg QID and zyprexa to 10 mg QHS only. 12/20: due to possibility of akathisia from zyprexa, will try lower potency anti-psychotic, thorazine. DC zyprexa and start thorazine 100 mg PO QHS with 50 mg IM if refuses PO. Reason for continued inpatient stay Substantial Risk for: harm to self, inability to function and rapid decompensation Time Spent With Patient Time: Total time managing care of this patient today __25__ minutes.
[2022-12-20] MEDS: chlorproMAZINE HCl 25 MG/ML AMPUL 50 MG IM (21:42)
[2022-12-20 21:43] VITALS: BP 116/63; PULSE 89; TEMP 36.4; O2SAT 94
[2022-12-21 08:00] VITALS: BP 112/57; PULSE 80; RESP 18; TEMP 36.4; O2SAT 94
[2022-12-21] MEDS: LORazepam 2 MG/ML VIAL IVPUSH ×4 (09:22→20:39)
--- NOTE | 2022-12-21 12:49 | HO.PSYCHPN ---
Subjective Subjective Date of Service: 12/21/22 Reason For Visit: catatonia Interim History: no change in presentation. per staff, did not appear to move or eat during day shift. was apparently more active eves, interacted with RN and ate dinner. was in bed all NOC, appeared to sleep. Mental Status Exam Mental Status Exam Narrative: Very poor self-care. found lying in bed motionless. not cooperative. mood not assessed. no SI/HI/AVH expressed. Insight and judgment appears limited Diagnostics Vital Signs (24Hr): Vital Signs - 24 hr 12/20/22 13:34 12/20/22 21:43 12/21/22 08:00 Temperature 97.6 F 97.6 F Pulse Rate 76 89 80 Respiratory Rate 18 Blood Pressure 109/62 116/63 112/57 L Pulse Oximetry 94 94 Oxygen Delivery Method Room Air Room Air Labs 12/15/22 09:53 Medications Medications Current Medications Acetaminophen (Acetaminophen 325 Mg Tablet) 650 mg PO Q6H PRN PRN Reason: Headache/Pain Mild Scale (1-3) Al Hydroxide/Mg Hydroxide (Magnesium Hydrox/Alum Hydrox 30 Ml Oral.Susp) 30 ml PO Q6H PRN PRN Reason: Heartburn/Nausea Artificial Tears (Artificial Tears 15 Ml Drops) 2 drop EYE-BOTH Q4H PRN PRN Reason: Dry Eyes Last Admin: 12/02/22 14:19 Dose: 2 drop Chlorpromazine HCl (Chlorpromazine Hcl 100 Mg Tablet) 100 mg PO BEDTIME [facility] Last Admin: 12/20/22 21:31 Dose: Not Given Chlorpromazine HCl (Chlorpromazine Hcl 25 Mg/Ml Ampul) 50 mg IM BEDTIME PRN PRN Reason: refusal of PO thorazine Last Admin: 12/20/22 21:42 Dose: 50 mg Fluoxetine HCl (Fluoxetine Hcl Oral Solution 20 Mg/5 Ml Solution) 20 mg PO DAILY [facility] Last Admin: 12/21/22 09:21 Dose: Not Given Hydroxyzine HCl (Hydroxyzine Hcl 25 Mg Tablet) 25 mg PO Q6H PRN PRN Reason: Anxiety Lorazepam (Lorazepam 2 Mg/Ml Vial) 2 mg IVPUSH QID [facility] Last Admin: 12/21/22 09:22 Dose: 2 mg Magnesium Hydroxide (Milk Of Magnesia 30 Ml Oral.Susp) 30 ml PO DAILY PRN PRN Reason: Constipation Trazodone HCl (Trazodone Hcl 50 Mg Tablet) 50 mg PO BEDTIME PRN PRN Reason: Insomnia Allergies Allergies Allergy/AdvReac Type Severity Reaction Status Date / Time No Known Allergies Allergy Verified 10/31/22 14:47 Assessment & Plan Assessment & Plan (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 11/04: pt refusing meds and not taking anything PO. nevertheless appears slightly improved from yesterday, more verbal with less latency of response. advised to take meds and fluids. 11/05: ate and drank some last night. refusing meds. no longer grossly catatonic. continue current mgmt. 11/06: no PO intake in past 24H. refusing meds. parnell warning, 3-day up . 11/07: no food, had some water last night. recheck BMP. completed commitment paperwork. refusing meds. 11/08: denies eating or drinking but yesterday's breakfast tray was empty on return. commitment filed. refusing meds. 11/09: continues without PO intake, not attending to ADLs. refusing meds. hearing scheduled for next . labs from yesterday not indicative of concerning dehydration. 11/10 continue tx. more talkative, although guarded. No overt delusional content reported. denies SI/HI. 11/11: will order CMP for tomorrow morning given uncertainty ref PO intake 11/13: increase in BUN and Cr due to dehydration 11/14: continue tx. refuses medications but unable to provide explanation as to why not show understanding in terms of effects of decrease oral intake on renal function. 11/15: unchanged from last week. intermittent meals, BUN mildly elevated. court tomorrow. 11/16: court deferred for BEHZAD. no change in presentation. place on 1:1 for observation of PO intake. lying all day in bed, PMR, with shades drawn, for a darkened room. refusing medications. 11/17: DC olanzapine. offer SSRI. eating and drinking this morning, after having been put on 1:1. continue current mgmt. commitment hearing likely next . 11/18: refusing to look at or speak with MD. clearly ate and drank more yesterday, up and out of room more. nevertheless, spends vast majority of his time lying in bed in the dark. refusing meds. 11/19: ate more yesterday and last night. DC 1:1. appearing catatonic today, no eye blink staring at ceiling not responding. 11/20: moderate PO intake yesterday. appearing more catatonic today. continue to offer meds. 11/21: catatonic. no report on sleep or PO intake as pt is off 1:1. continue to offer meds. 11/22: catatonic. labs reassuring. court tomorrow. 11/23: catatonic. committed and ordered meds in court. 11/24: start ativan 2 mg TID with IM back-up for catatonia. plan to start neuroleptics and anti-depressants once catatonia improved. 11/25: decrease ativan to 1mg tid as he had no response to 2 mg and might be experiencing sedation from it 11/26: More alert on lower ativan dose but remains non-verbal and lying in bed 11/27 increase ativan back to 2mg po TID back up IM. 11/28: T/C gaining IV access to facilitate delivery of ativan; plan to increase to QID dosing. remains catatonic. case d/w nursing administration and medical videographerwind development director. 11/29: gain IV access today, start ativan 2 mg IV QID. was out of bed, eating and speaking yesterday evening. 11/30: 1:1 as he removed IV access, apparently. was up in kitchen getting food on evening shift. continue current mgmt. 12/01: up twice in the past 24H, ate some, swore that lights in his room had been turned on. T/C adding valium 2 mg TID IV (per court order, maximum of 8 mg ativan may be given per day) and/or antipsychotic to regimen. case D/W david. 12/02: Check comprehensive metabolic labs in AM. Continue current management. 12/03: Improved post IM dose of Zyprexa last night. Ate better. More communicative. Continue current plan of care. 12/04: some improvement over w/e. increase IM zyprexa t HS to 5 mg each. continue current mgmt. 12/05: continue current mgmt. up several times yesterday, had conversation with reza nurse, observed eating dinner. 12/06: less active yesterday. did not receive IM zyprexa last night. continue current mgmt. 12/07: received zyprexa IM last night. up for breakfast this morning, exchanged some words with MD for first time in weeks. indicated he has a depressed mood. not opposed to anti-depressant. will start prozac liquid daily. 12/08: lying in bed, not responsive. several interactions with staff yesterday, limited and often non-verbal. refused PO prozac. continue current mgmt. 12/09: still catatonic. 12/10 still catatonic 12/11/22 Patient intermittently responsive often refusing p.o. meds may require ECT 12/12/2022 Patient remains mostly electively mute intermittently catatonic with some periods of verbal discourse 12/13/22 more verbal hx of recurrent depression still gets iv ativan refuses po meds 12 14 22 Continue Ativan and intravenous is encouraged fluoxetine continue olanzapine 5 mg patient does not appear to be psychotic would encourage ECT 12/15/2022 Continue plan of care labs reviewed sodium creatinine within normal limits 12/16: Continue current regimen and plans. Switch Zyprexa to a.m. use. 12/17: Continue current regimen and plans. Decrease Ativan by 2 mg and increase Zyprexa by 10 mg 12/18: continue current regimen. no change in catatonic presentation. 12/19: return ativan to 2 mg QID and zyprexa to 10 mg QHS only. 12/20: due to possibility of akathisia from zyprexa, will try lower potency anti-psychotic, thorazine. DC zyprexa and start thorazine 100 mg PO QHS with 50 mg IM if refuses PO. 12/21: received thorazine last NOC, IM. ate dinner and spoke with EMERY cobb. generally no improvement, no change in presentation. Reason for continued inpatient stay Substantial Risk for: harm to self, inability to function and rapid decompensation Time Spent With Patient Time: Total time managing care of this patient today ____ minutes.
[2022-12-21 13:31] VITALS: BP 108/58; PULSE 81; RESP 18; O2SAT 95
[2022-12-21 18:00] VITALS: BP 110/68; PULSE 95; RESP 18; TEMP 36.6; O2SAT 97
[2022-12-21] MEDS: chlorproMAZINE HCl 25 MG/ML AMPUL 50 MG IM (20:41)
[2022-12-22 08:50] VITALS: BP 109/62; PULSE 84; RESP 18; TEMP 36.6; O2SAT 97
[2022-12-22] MEDS: LORazepam 2 MG/ML VIAL IVPUSH ×4 (09:05→22:24)
[2022-12-22 09:30] VITALS: BP 112/64; PULSE 82; RESP 18; O2SAT 97
[2022-12-22 12:46] VITALS: BP 109/62; PULSE 94; RESP 18; TEMP 36.6; O2SAT 97
--- NOTE | 2022-12-22 13:38 | P.PNPSI_ITS ---
Subjective Subjective Date of Service: 12/22/22 Reason For Visit: catatonia Interim History: observed stirring today. made some responses. indicated his mood is down, unable to provide a reason for his refusal to take PO thorazine, unable to indicate any preference for or against ECT. per staff, not attending groups. did not eat breakfast. no responses to staff on days. was snacking on eves. irritable 2/2 med change to thorazine. anx/dep 02/20. only slept 1-2 hours overnight. said thorazine injection really hurts. Mental Status Exam Mental Status Exam Narrative: Very poor self-care. malodorous. found lying in bed, some stirring. cooperative. terse, monotone, vague. flat affect. mood down. no SI/HI/AVH expressed. Insight and judgment appears limited Diagnostics Vital Signs (24Hr): Vital Signs - 24 hr 12/21/22 18:00 12/22/22 08:50 12/22/22 09:30 Temperature 97.9 F 97.9 F Pulse Rate 95 84 82 Respiratory Rate 18 18 18 Blood Pressure 110/68 109/62 112/64 Pulse Oximetry 97 97 97 Oxygen Delivery Method Room Air Room Air Room Air 12/22/22 12:46 Temperature 97.9 F Pulse Rate 94 Respiratory Rate 18 Blood Pressure 109/62 Pulse Oximetry 97 Oxygen Delivery Method Room Air Labs 12/15/22 09:53 Medications Medications Current Medications Acetaminophen (Acetaminophen 325 Mg Tablet) 650 mg PO Q6H PRN PRN Reason: Headache/Pain Mild Scale (1-3) Al Hydroxide/Mg Hydroxide (Magnesium Hydrox/Alum Hydrox 30 Ml Oral.Susp) 30 ml PO Q6H PRN PRN Reason: Heartburn/Nausea Artificial Tears (Artificial Tears 15 Ml Drops) 2 drop EYE-BOTH Q4H PRN PRN Reason: Dry Eyes Last Admin: 12/02/22 14:19 Dose: 2 drop Chlorpromazine HCl (Chlorpromazine Hcl 100 Mg Tablet) 100 mg PO BEDTIME [facility] Last Admin: 12/21/22 21:19 Dose: Not Given Chlorpromazine HCl (Chlorpromazine Hcl 25 Mg/Ml Ampul) 50 mg IM BEDTIME PRN PRN Reason: refusal of PO thorazine Last Admin: 12/21/22 20:41 Dose: 50 mg Fluoxetine HCl (Fluoxetine Hcl Oral Solution 20 Mg/5 Ml Solution) 20 mg PO DAILY [facility] Last Admin: 12/22/22 09:08 Dose: Not Given Hydroxyzine HCl (Hydroxyzine Hcl 25 Mg Tablet) 25 mg PO Q6H PRN PRN Reason: Anxiety Lorazepam (Lorazepam 2 Mg/Ml Vial) 2 mg IVPUSH QID [facility] Last Admin: 12/22/22 12:50 Dose: 2 mg Magnesium Hydroxide (Milk Of Magnesia 30 Ml Oral.Susp) 30 ml PO DAILY PRN PRN Reason: Constipation Trazodone HCl (Trazodone Hcl 50 Mg Tablet) 50 mg PO BEDTIME PRN PRN Reason: Insomnia Allergies Allergies Allergy/AdvReac Type Severity Reaction Status Date / Time No Known Allergies Allergy Verified 10/31/22 14:47 Assessment & Plan Assessment & Plan (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 11/04: pt refusing meds and not taking anything PO. nevertheless appears slightly improved from yesterday, more verbal with less latency of response. advised to take meds and fluids. 11/05: ate and drank some last night. refusing meds. no longer grossly catat onic. continue current mgmt. 11/06: no PO intake in past 24H. refusing meds. parnell warning, 3-day up . 11/07: no food, had some water last night. recheck BMP. completed commitment paperwork. refusing meds. 11/08: denies eating or drinking but yesterday's breakfast tray was empty on return. commitment filed. refusing meds. 11/09: continues without PO intake, not attending to ADLs. refusing meds. hearing scheduled for next . labs from yesterday not indicative of concerning dehydration. 11/10 continue tx. more talkative, although guarded. No overt delusional content reported. denies SI/HI. 11/11: will order CMP for tomorrow morning given uncertainty ref PO intake 11/13: increase in BUN and Cr due to dehydration 11/14: continue tx. refuses medications but unable to provide explanation as to why not show understanding in terms of effects of decrease oral intake on renal function. 11/15: unchanged from last week. intermittent meals, BUN mildly elevated. court tomorrow. 11/16: court deferred for BEHZAD. no change in presentation. place on 1:1 for observation of PO intake. lying all day in bed, PMR, with shades drawn, for a darkened room. refusing medications. 11/17: DC olanzapine. offer SSRI. eating and drinking this morning, after having been put on 1:1. continue current mgmt. commitment hearing likely next . 11/18: refusing to look at or speak with MD. clearly ate and drank more yesterday, up and out of room more. nevertheless, spends vast majority of his time lying in bed in the dark. refusing meds. 11/19: ate more yesterday and last night. DC 1:1. appearing catatonic today, no eye blink staring at ceiling not responding. 11/20: moderate PO intake yesterday. appearing more catatonic today. continue to offer meds. 11/21: catatonic. no report on sleep or PO intake as pt is off 1:1. continue to offer meds. 11/22: catatonic. labs reassuring. court tomorrow. 11/23: catatonic. committed and ordered meds in court. 11/24: start ativan 2 mg TID with IM back-up for catatonia. plan to start neuroleptics and anti-depressants once catatonia improved. 11/25: decrease ativan to 1mg tid as he had no response to 2 mg and might be experiencing sedation from it 11/26: More alert on lower ativan dose but remains non-verbal and lying in bed 11/27 increase ativan back to 2mg po TID back up IM. 11/28: T/C gaining IV access to facilitate delivery of ativan; plan to increase to QID dosing. remains catatonic. case d/w nursing administration and medical operations supervisorworkforce development program director. 11/29: gain IV access today, start ativan 2 mg IV QID. was out of bed, eating and speaking yesterday evening. 11/30: 1:1 as he removed IV access, apparently. was up in kitchen getting food on evening shift. continue current mgmt. 12/01: up twice in the past 24H, ate some, swore that lights in his room had been turned on. T/C adding valium 2 mg TID IV (per court order, maximum of 8 mg ativan may be given per day) and/or antipsychotic to regimen. case D/W david. 12/02: Check comprehensive metabolic labs in AM. Continue current management. 12/03: Improved post IM dose of Zyprexa last night. Ate better. More communicative. Continue current plan of care. 12/04: some improvement over w/e. increase IM zyprexa t HS to 5 mg each. continue current mgmt. 12/05: continue current mgmt. up several times yesterday, had conversation with reza nurse, observed eating dinner. 12/06: less active yesterday. did not receive IM zyprexa last night. continue current mgmt. 12/07: received zyprexa IM last night. up for breakfast this morning, exchanged some words with MD for first time in weeks. indicated he has a depressed mood. not opposed to anti-depressant. will start prozac liquid daily. 12/08: lying in bed, not responsive. several interactions with staff yesterday, limited and often non-verbal. refused PO prozac. continue current mgmt. 12/09: still catatonic. 12/10 still catatonic 12/11/22 Patient intermittently responsive often refusing p.o. meds may require ECT 12/12/2022 Patient remains mostly electively mute intermittently catatonic with some sy ods of verbal discourse 12/13/22 more verbal hx of recurrent depression still gets iv ativan refuses po meds 12 14 22 Continue Ativan and intravenous is encouraged fluoxetine continue olanzapine 5 mg patient does not appear to be psychotic would encourage ECT 12/15/2022 Continue plan of care labs reviewed sodium creatinine within normal limits 12/16: Continue current regimen and plans. Switch Zyprexa to a.m. use. 12/17: Continue current regimen and plans. Decrease Ativan by 2 mg and increase Zyprexa by 10 mg 12/18: continue current regimen. no change in catatonic presentation. 12/19: return ativan to 2 mg QID and zyprexa to 10 mg QHS only. 12/20: due to possibility of akathisia from zyprexa, will try lower potency anti- psychotic, thorazine. DC zyprexa and start thorazine 100 mg PO QHS with 50 mg I M if refuses PO. 12/21: received thorazine last NOC, IM. ate dinner and spoke with EMERY cobb. generally no improvement, no change in presentation. 12/22: awake briefly this morning, endorsing depression. vague, unable to state preference for Tx. continue current mgmt. hearing scheduled for next sunday re ECT. Reason for continued inpatient stay Substantial Risk for: harm to self, inability to function and rapid decompensation Time Spent With Patient Time: Total time managing care of this patient today __25__ minutes.
[2022-12-22 17:23] VITALS: BP 109/63; PULSE 75
[2022-12-22 18:14] VITALS: BP 98/55; PULSE 75
[2022-12-22 22:22] VITALS: BP 108/65; PULSE 76; TEMP 36.6; O2SAT 93
[2022-12-22] MEDS: chlorproMAZINE HCl 25 MG/ML AMPUL 50 MG IM (22:24)
[2022-12-23] VITALS (7 sets, daily range): BP systolic 81–114; BP diastolic 52–67; PULSE 62–86; RESP 18; TEMP 36.6–36.7; O2SAT 93–96
[2022-12-23] MEDS: LORazepam 2 MG/ML VIAL IVPUSH ×3 (08:27→22:38)
--- NOTE | 2022-12-23 12:04 | PC.NURSE ---
Pt had peripheral IV removed from left lower forearm r/t . Us Marketing Director attempted 2 IV's without success, new peripheral IV, 20 gauge placed in the left lower forearm by Jeana Callaway RN. Pt tolerated well and clear dsg applied.
--- NOTE | 2022-12-23 15:59 | HO.PSYCHPN ---
Subjective Subjective Date of Service: 12/23/22 Reason For Visit: catatonia Subjective Notes: Section 8 Interim History: PT withdrawn no change mse or behavoir often not eating drinking Medication Compliance: No Review of Systems ? dehydration Mental Status Exam Mental Status Exam Narrative: Very poor self-care. malodorous. lying in bed eyes closed , some stirring. cooperative. terse, monotone, vague. flat affect. mood down. no SI/HI/AVH expressed. Insight and judgment severely impaired Diagnostics Vital Signs (24Hr): Vital Signs - 24 hr 12/22/22 17:23 12/22/22 18:14 12/22/22 22:22 Temperature 97.9 F Pulse Rate 75 75 76 Respiratory Rate Blood Pressure 109/63 98/55 L 108/65 Pulse Oximetry 93 Oxygen Delivery Method Room Air 12/23/22 08:28 Temperature 98.1 F Pulse Rate 78 Respiratory Rate 18 Blood Pressure 103/62 Pulse Oximetry 96 Oxygen Delivery Method Room Air Labs 12/15/22 09:53 Medications Medications Current Medications Acetaminophen (Acetaminophen 325 Mg Tablet) 650 mg PO Q6H PRN PRN Reason: Headache/Pain Mild Scale (1-3) Al Hydroxide/Mg Hydroxide (Magnesium Hydrox/Alum Hydrox 30 Ml Oral.Susp) 30 ml PO Q6H PRN PRN Reason: Heartburn/Nausea Artificial Tears (Artificial Tears 15 Ml Drops) 2 drop EYE-BOTH Q4H PRN PRN Reason: Dry Eyes Last Admin: 12/02/22 14:19 Dose: 2 drop Chlorpromazine HCl (Chlorpromazine Hcl 100 Mg Tablet) 100 mg PO BEDTIME [facility] Last Admin: 12/22/22 22:27 Dose: Not Given Chlorpromazine HCl (Chlorpromazine Hcl 25 Mg/Ml Ampul) 50 mg IM BEDTIME PRN PRN Reason: refusal of PO thorazine Last Admin: 12/22/22 22:24 Dose: 50 mg Fluoxetine HCl (Fluoxetine Hcl Oral Solution 20 Mg/5 Ml Solution) 20 mg PO DAILY [facility] Last Admin: 12/23/22 08:27 Dose: Not Given Hydroxyzine HCl (Hydroxyzine Hcl 25 Mg Tablet) 25 mg PO Q6H PRN PRN Reason: Anxiety Lorazepam (Lorazepam 2 Mg/Ml Vial) 2 mg IVPUSH QID [facility] Last Admin: 12/23/22 13:31 Dose: 2 mg Magnesium Hydroxide (Milk Of Magnesia 30 Ml Oral.Susp) 30 ml PO DAILY PRN PRN Reason: Constipation Trazodone HCl (Trazodone Hcl 50 Mg Tablet) 50 mg PO BEDTIME PRN PRN Reason: Insomnia Allergies Allergies Allergy/AdvReac Type Severity Reaction Status Date / Time No Known Allergies Allergy Verified 10/31/22 14:47 Assessment & Plan Assessment & Plan (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 11/04: pt refusing meds and not taking anything PO. nevertheless appears slightly improved from yesterday, more verbal with less latency of response. advised to take meds and fluids. 11/05: ate and drank some last night. refusing meds. no longer grossly catatonic. continue current mgmt. 11/06: no PO intake in past 24H. refusing meds. parnell warning, 3-day up . 11/07: no food, had some water last night. recheck BMP. completed commitment paperwork. refusing meds. 11/08: denies eating or drinking but yesterday's breakfast tray was empty on return. commitment filed. refusing meds. 11/09: continues without PO intake, not attending to ADLs. refusing meds. hearing scheduled for next . labs from yesterday not indicative of concerning dehydration. 11/10 continue tx. more talkative, although guarded. No overt delusional content reported. denies SI/HI. 11/11: will order CMP for tomorrow morning given uncertainty ref PO intake 11/13: increase in BUN and Cr due to dehydration 11/14: continue tx. refuses medications but unable to provide explanation as to why not show understanding in terms of effects of decrease oral intake on renal function. 11/15: unchanged from last week. intermittent meals, BUN mildly elevated. court tomorrow. 11/16: court deferred for BEHZAD. no change in presentation. place on 1:1 for observation of PO intake. lying all day in bed, PMR, with shades drawn, for a darkened room. refusing medications. 11/17: DC olanzapine. offer SSRI. eating and drinking this morning, after having been put on 1:1. continue current mgmt. commitment hearing likely next . 11/18: refusing to look at or speak with MD. clearly ate and drank more yesterday, up and out of room more. nevertheless, spends vast majority of his time lying in bed in the dark. refusing meds. 11/19: ate more yesterday and last night. DC 1:1. appearing catatonic today, no eye blink staring at ceiling not responding. 11/20: moderate PO intake yesterday. appearing more catatonic today. continue to offer meds. 11/21: catatonic. no report on sleep or PO intake as pt is off 1:1. continue to offer meds. 11/22: catatonic. labs reassuring. court tomorrow. 11/23: catatonic. committed and ordered meds in court. 11/24: start ativan 2 mg TID with IM back-up for catatonia. plan to start neuroleptics and anti-depressants once catatonia improved. 11/25: decrease ativan to 1mg tid as he had no response to 2 mg and might be experiencing sedation from it 11/26: More alert on lower ativan dose but remains non-verbal and lying in bed 11/27 increase ativan back to 2mg po TID back up IM. 11/28: T/C gaining IV access to facilitate delivery of ativan; plan to increase to QID dosing. remains catatonic. case d/w nursing administration and medical care evaluation specialistdirector government. 11/29: gain IV access today, start ativan 2 mg IV QID. was out of bed, eating and speaking yesterday evening. 11/30: 1:1 as he removed IV access, apparently. was up in kitchen getting food on evening shift. continue current mgmt. 12/01: up twice in the past 24H, ate some, swore that lights in his room had been turned on. T/C adding valium 2 mg TID IV (per court order, maximum of 8 mg ativan may be given per day) and/or antipsychotic to regimen. case D/W david. 12/02: Check comprehensive metabolic labs in AM. Continue current management. 12/03: Improved post IM dose of Zyprexa last night. Ate better. More communicative. Continue current plan of care. 12/04: some improvement over w/e. increase IM zyprexa t HS to 5 mg each. continue current mgmt. 12/05: continue current mgmt. up several times yesterday, had conversation with reza hilton, observed eating dinner. 12/06: less active yesterday. did not receive IM zyprexa last night. continue current mgmt. 12/07: received zyprexa IM last night. up for breakfast this morning, exchanged some words with MD for first time in weeks. indicated he has a depressed mood. not opposed to anti-depressant. will start prozac liquid daily. 12/08: lying in bed, not responsive. several interactions with staff yesterday, limited and often non-verbal. refused PO prozac. continue current mgmt. 12/09: still catatonic. 12/10 still catatonic 12/11/22 Patient intermittently responsive often refusing p.o. meds may require ECT 12/12/2022 Patient remains mostly electively mute intermittently catatonic with some periods of verbal discourse 12/13/22 more verbal hx of recurrent depression still gets iv ativan refuses po meds 12 14 22 Continue Ativan and intravenous is encouraged fluoxetine continue olanzapine 5 mg patient does not appear to be psychotic would encourage ECT 12/15/2022 Continue plan of care labs reviewed sodium creatinine within normal limits 12/16: Continue current regimen and plans. Switch Zyprexa to a.m. use. 12/17: Continue current regimen and plans. Decrease Ativan by 2 mg and increase Zyprexa by 10 mg 12/18: continue current regimen. no change in catatonic presentation. 12/19: return ativan to 2 mg QID and zyprexa to 10 mg QHS only. 12/20: due to possibility of akathisia from zyprexa, will try lower potency anti-psychotic, thorazine. DC zyprexa and start thorazine 100 mg PO QHS with 50 mg IM if refuses PO. 12/21: received thorazine last NOC, IM. ate dinner and spoke with RN reza. generally no improvement, no change in presentation. 12/22: awake briefly this morning, endorsing depression. vague, unable to state preference for Tx. continue current mgmt. hearing scheduled for next sunday re ECT. 12/23 ck labs consider iv fluids get med clearance ect Reason for continued inpatient stay Substantial Risk for: harm to self, inability to function, rapid decompensation and med/psych decompensation Time Spent With Patient Time: Total time managing care of this patient today ____ minutes.
--- NOTE | 2022-12-23 19:04 | PC.NURSE ---
Pts BP at 1650 was 81/52 P86. notified and held 1700 Ativan . Md ordered labs and will begin fluid replacement based on lab results. Pt remains catatonic and refuses to answer questions in assessment. Will continue BP/P as ordered
[2022-12-23 22:27] LABS: Alanine Aminotransferase 16 U/L (0-40); Alkaline Phosphatase 68 U/L (39-117); Anion Gap 16 (12-20); Aspartate Amino Transferase 24 U/L (5-37); Bilirubin Total 0.8 mg/dL (0.0-1.0); Blood Urea Nitrogen 11 mg/dL (9-16); Calcium 9.8 mg/dL (8.4-10.2); Carbon Dioxide 23 mmol/L (22-29); Chloride 104 mmol/L (96-108); Estimated Glomerular Filt Rate > 60; Glucose Random 79 mg/dL (60-115); Potassium 4.2 mmol/L (3.3-5.1); Sodium 139 mmol/L (135-145); Total Protein 7.1 g/dL (6.5-8.0)
--- NOTE | 2022-12-23 22:42 | PC.NURSE ---
HAVE BEEN IN DISCUSSION WITH PSYCHIATRIST. TO HOLD im THORAZINE THIS EVENING DESPITE REFUSAL OF ORAL THORAZINE. TOLERATING iv ATIVAN, PATIENT IS AWARE.
[2022-12-24 08:29] VITALS: BP 107/69; PULSE 70; RESP 18; TEMP 37.1; O2SAT 95
[2022-12-24] MEDS: LORazepam 2 MG/ML VIAL IVPUSH ×4 (08:51→22:14)
--- NOTE | 2022-12-24 09:51 | HO.PSYCHPN ---
Subjective Subjective Date of Service: 12/24/22 Reason For Visit: catatonia Subjective Notes: Section 8 Interim History: Patient continues unchanged unremarkable intermittent eating and drinking mostly in bed with eyes closed Review of Systems Continue to monitor for dehydration malnutrition Mental Status Exam Mental Status Exam Narrative: Very poor self-care. malodorous. lying in bed eyes closed , some and brief engagement describes feeling empty. flat affect. mood down. no SI/HI/AVH expressed. Insight and judgment severely impaired Diagnostics Vital Signs (24Hr): Vital Signs - 24 hr 12/23/22 13:30 12/23/22 14:10 12/23/22 16:50 Temperature Pulse Rate 73 70 86 Respiratory Rate Blood Pressure 109/62 102/62 81/52 L Pulse Oximetry Oxygen Delivery Method 12/23/22 19:46 12/23/22 21:54 12/24/22 08:29 Temperature 97.9 F 98.7 F Pulse Rate 72 62 70 Respiratory Rate 18 Blood Pressure 111/60 114/67 107/69 Pulse Oximetry 94 93 95 Oxygen Delivery Method Room Air Room Air Room Air Labs 12/23/22 17:51 Labs: Laboratory Results - last 48 hr 12/23/22 17:51 Sodium 139 Potassium 4.2 Chloride 104 Carbon Dioxide 23 Anion Gap 16 BUN 11 Creatinine 0.77 Estim Creat Clear Calc TNP Estimated GFR > 60 Random Glucose 79 Calcium 9.8 Total Bilirubin 0.8 AST 24 ALT 16 Alkaline Phosphatase 68 Total Protein 7.1 Albumin 4.0 Medications Medications Current Medications Acetaminophen (Acetaminophen 325 Mg Tablet) 650 mg PO Q6H PRN PRN Reason: Headache/Pain Mild Scale (1-3) Al Hydroxide/Mg Hydroxide (Magnesium Hydrox/Alum Hydrox 30 Ml Oral.Susp) 30 ml PO Q6H PRN PRN Reason: Heartburn/Nausea Artificial Tears (Artificial Tears 15 Ml Drops) 2 drop EYE-BOTH Q4H PRN PRN Reason: Dry Eyes Last Admin: 12/02/22 14:19 Dose: 2 drop Chlorpromazine HCl (Chlorpromazine Hcl 100 Mg Tablet) 100 mg PO BEDTIME [facility] Last Admin: 12/23/22 22:38 Dose: Not Given Fluoxetine HCl (Fluoxetine Hcl Oral Solution 20 Mg/5 Ml Solution) 20 mg PO DAILY [facility] Last Admin: 12/23/22 08:27 Dose: Not Given Hydroxyzine HCl (Hydroxyzine Hcl 25 Mg Tablet) 25 mg PO Q6H PRN PRN Reason: Anxiety Lorazepam (Lorazepam 2 Mg/Ml Vial) 2 mg IVPUSH QID [facility] Last Admin: 12/24/22 08:51 Dose: 2 mg Magnesium Hydroxide (Milk Of Magnesia 30 Ml Oral.Susp) 30 ml PO DAILY PRN PRN Reason: Constipation Trazodone HCl (Trazodone Hcl 50 Mg Tablet) 50 mg PO BEDTIME PRN PRN Reason: Insomnia Allergies Allergies Allergy/AdvReac Type Severity Reaction Status Date / Time No Known Allergies Allergy Verified 10/31/22 14:47 Assessment & Plan Assessment & Plan (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 11/04: pt refusing meds and not taking anything PO. nevertheless appears slightly improved from yesterday, more verbal with less latency of response. advised to take meds and fluids. 11/05: ate and drank some last night. refusing meds. no longer grossly catatonic. continue current mgmt. 11/06: no PO intake in past 24H. refusing meds. parnell warning, 3-day up . 11/07: no food, had some water last night. recheck BMP. completed commitment paperwork. refusing meds. 11/08: denies eating or drinking but yesterday's breakfast tray was empty on return. commitment filed. refusing meds. 11/09: continues without PO intake, not attending to ADLs. refusing meds. hearing scheduled for next . labs from yesterday not indicative of concerning dehydration. 11/10 continue tx. more talkative, although guarded. No overt delusional content reported. denies SI/HI. 11/11: will order CMP for tomorrow morning given uncertainty ref PO intake 11/13: increase in BUN and Cr due to dehydration 11/14: continue tx. refuses medications but unable to provide explanation as to why not show understanding in terms of effects of decrease oral intake on renal function. 11/15: unchanged from last week. intermittent meals, BUN mildly elevated. court tomorrow. 11/16: court deferred for BEHZAD. no change in presentation. place on 1:1 for observation of PO intake. lying all day in bed, PMR, with shades drawn, for a darkened room. refusing medications. 11/17: DC olanzapine. offer SSRI. eating and drinking this morning, after having been put on 1:1. continue current mgmt. commitment hearing likely next . 11/18: refusing to look at or speak with MD. clearly ate and drank more yesterday, up and out of room more. nevertheless, spends vast majority of his time lying in bed in the dark. refusing meds. 11/19: ate more yesterday and last night. DC 1:1. appearing catatonic today, no eye blink staring at ceiling not responding. 11/20: moderate PO intake yesterday. appearing more catatonic today. continue to offer meds. 11/21: catatonic. no report on sleep or PO intake as pt is off 1:1. continue to offer meds. 11/22: catatonic. labs reassuring. court tomorrow. 11/23: catatonic. committed and ordered meds in court. 11/24: start ativan 2 mg TID with IM back-up for catatonia. plan to start neuroleptics and anti-depressants once catatonia improved. 11/25: decrease ativan to 1mg tid as he had no response to 2 mg and might be experiencing sedation from it 11/26: More alert on lower ativan dose but remains non-verbal and lying in bed 11/27 increase ativan back to 2mg po TID back up IM. 11/28: T/C gaining IV access to facilitate delivery of ativan; plan to increase to QID dosing. remains catatonic. case d/w nursing administration and medical support assistantdirector data architecture. 11/29: gain IV access today, start ativan 2 mg IV QID. was out of bed, eating and speaking yesterday evening. 11/30: 1:1 as he removed IV access, apparently. was up in kitchen getting food on evening shift. continue current mgmt. 12/01: up twice in the past 24H, ate some, swore that lights in his room had been turned on. T/C adding valium 2 mg TID IV (per court order, maximum of 8 mg ativan may be given per day) and/or antipsychotic to regimen. case D/W david. 12/02: Check comprehensive metabolic labs in AM. Continue current management. 12/03: Improved post IM dose of Zyprexa last night. Ate better. More communicative. Continue current plan of care. 12/04: some improvement over w/e. increase IM zyprexa t HS to 5 mg each. continue current mgmt. 12/05: continue current mgmt. up several times yesterday, had conversation with reza nurse, observed eating dinner. 12/06: less active yesterday. did not receive IM zyprexa last night. continue current mgmt. 12/07: received zyprexa IM last night. up for breakfast this morning, exchanged some words with MD for first time in weeks. indicated he has a depressed mood. not opposed to anti-depressant. will start prozac liquid daily. 12/08: lying in bed, not responsive. several interactions with staff yesterday, limited and often non-verbal. refused PO prozac. continue current mgmt. 12/09: still catatonic. 12/10 still catatonic 12/11/22 Patient intermittently responsive often refusing p.o. meds may require ECT 12/12/2022 Patient remains mostly electively mute intermittently catatonic with some periods of verbal discourse 12/13/22 more verbal hx of recurrent depression still gets iv ativan refuses po meds 12 14 22 Continue Ativan and intravenous is encouraged fluoxetine continue olanzapine 5 mg patient does not appear to be psychotic would encourage ECT 12/15/2022 Continue plan of care labs reviewed sodium creatinine within normal limits 12/16: Continue current regimen and plans. Switch Zyprexa to a.m. use. 12/17: Continue current regimen and plans. Decrease Ativan by 2 mg and increase Zyprexa by 10 mg 12/18: continue current regimen. no change in catatonic presentation. 12/19: return ativan to 2 mg QID and zyprexa to 10 mg QHS only. 12/20: due to possibility of akathisia from zyprexa, will try lower potency anti-psychotic, thorazine. DC zyprexa and start thorazine 100 mg PO QHS with 50 mg IM if refuses PO. 12/21: received thorazine last NOC, IM. ate dinner and spoke with EMERY cobb. generally no improvement, no change in presentation. 12/22: awake briefly this morning, endorsing depression. vague, unable to state preference for Tx. continue current mgmt. hearing scheduled for next sunday re ECT. 12/23 ck labs consider iv fluids get med clearance ect 12/24/2022 Of Thorazine discontinued has not been effective can lower blood pressure and someone already with periods of dehydration strongly would benefit from ECT trial Informed Consent: does not understand Reason for continued inpatient stay Substantial Risk for: inability to function, rapid decompensation and med/psych decompensation Time Spent With Patient Time: Total time managing care of this patient today ____ minutes.
[2022-12-24 12:19] VITALS: BP 102/70; PULSE 64
--- NOTE | 2022-12-24 14:59 | PC.NURSE ---
Pt had been isolative and catatonic throughout the am when he was sitting up eating breakfast when T/W approached him. Pt allowed T/W to change his sheets and changed all clothing when offered. Pt agreed to cutting finger nails with supervision and says he will shower later. Pt says, I'm just here, I got used to laying around when I was in group home. Pt reported that he was required to stay in cell 21 hrs/day with 3-1 hour breaks outside, in a bigger box . Pt verbalizes feeling depressed and says he's tried all the meds in group home, they don't help. Pt reports that the transition from group home to the community has been difficult. Pt offered his po Prozac and refused, cooperative with IV Ativan.. When asked about family support he said, I haven't been in contact with them in awhile. Pt then ate his lunch and said he wanted to lay down.
[2022-12-24 22:08] VITALS: BP 120/68; PULSE 95; TEMP 36.8; O2SAT 94
[2022-12-25 08:00] VITALS: BP 101/51; PULSE 80; RESP 16; TEMP 36.2; O2SAT 96
[2022-12-25] MEDS: LORazepam 2 MG/ML VIAL IVPUSH ×4 (09:15→21:34)
[2022-12-25 09:35] VITALS: BP 101/64; PULSE 74; RESP 16; O2SAT 97
[2022-12-25 14:01] VITALS: BP 110/61; PULSE 67; RESP 16; TEMP 36.1; O2SAT 96
--- NOTE | 2022-12-25 15:43 | HO.PSYCHPN ---
Subjective Subjective Date of Service: 12/25/22 Reason For Visit: catatonia Interim History: observed to be up and about this morning while he was being moved to a different room. indicated depressed mood, stated he prefers no ECT because it doesn't sound fun. per staff, rene Mcgowan. NOC shift last night spoke with RN. he reportedly agreed to cut his fingernails with supervision; whether or not he did so was unclear. reportedly also ate 3 meals yesterday. Mental Status Exam Mental Status Exam Narrative: Very poor self-care. malodorous. walking the farmer to new room. cooperative. terse, monotone, vague. flat affect. mood down. no SI/HI/AVH expressed. Insight and judgment appears limited Diagnostics Vital Signs (24Hr): Vital Signs - 24 hr 12/24/22 22:08 12/25/22 08:00 12/25/22 09:35 Temperature 98.3 F 97.1 F Pulse Rate 95 80 74 Respiratory Rate 16 16 Blood Pressure 120/68 101/51 L 101/64 Pulse Oximetry 94 96 97 Oxygen Delivery Method Room Air Room Air Room Air 12/25/22 14:01 Temperature 97 F Pulse Rate 67 Respiratory Rate 16 Blood Pressure 110/61 Pulse Oximetry 96 Oxygen Delivery Method Room Air Labs 12/23/22 17:51 Labs: Laboratory Results - last 48 hr 12/23/22 17:51 Sodium 139 Potassium 4.2 Chloride 104 Carbon Dioxide 23 Anion Gap 16 BUN 11 Creatinine 0.77 Estim Creat Clear Calc TNP Estimated GFR > 60 Random Glucose 79 Calcium 9.8 Total Bilirubin 0.8 AST 24 ALT 16 Alkaline Phosphatase 68 Total Protein 7.1 Albumin 4.0 Medications Medications Current Medications Acetaminophen (Acetaminophen 325 Mg Tablet) 650 mg PO Q6H PRN PRN Reason: Headache/Pain Mild Scale (1-3) Al Hydroxide/Mg Hydroxide (Magnesium Hydrox/Alum Hydrox 30 Ml Oral.Susp) 30 ml PO Q6H PRN PRN Reason: Heartburn/Nausea Artificial Tears (Artificial Tears 15 Ml Drops) 2 drop EYE-BOTH Q4H PRN PRN Reason: Dry Eyes Last Admin: 12/02/22 14:19 Dose: 2 drop Chlorpromazine HCl (Chlorpromazine Hcl 100 Mg Tablet) 100 mg PO BEDTIME GABRIEL Last Admin: 12/24/22 20:56 Dose: Not Given Fluoxetine HCl (Fluoxetine Hcl Oral Solution 20 Mg/5 Ml Solution) 20 mg PO DAILY [facility] Last Admin: 12/25/22 09:15 Dose: Not Given Hydroxyzine HCl (Hydroxyzine Hcl 25 Mg Tablet) 25 mg PO Q6H PRN PRN Reason: Anxiety Lorazepam (Lorazepam 2 Mg/Ml Vial) 2 mg IVPUSH QID [facility] Last Admin: 12/25/22 13:09 Dose: 2 mg Magnesium Hydroxide (Milk Of Magnesia 30 Ml Oral.Susp) 30 ml PO DAILY PRN PRN Reason: Constipation Trazodone HCl (Trazodone Hcl 50 Mg Tablet) 50 mg PO BEDTIME PRN PRN Reason: Insomnia Allergies Allergies Allergy/AdvReac Type Severity Reaction Status Date / Time No Known Allergies Allergy Verified 10/31/22 14:47 Assessment & Plan Assessment & Plan (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 11/04: pt refusing meds and not taking anything PO. nevertheless appears slightly improved from yesterday, more verbal with less latency of response. advised to take meds and fluids. 11/05: ate and drank some last night. refusing meds. no longer grossly catatonic. continue current mgmt. 11/06: no PO intake in past 24H. refusing meds. parnell warning, 3-day up . 11/07: no food, had some water last night. recheck BMP. completed commitment paperwork. refusing meds. 11/08: denies eating or drinking but yesterday's breakfast tray was empty on return. commitment filed. refusing meds. 11/09: continues without PO intake, not attending to ADLs. refusing meds. hearing scheduled for next . labs from yesterday not indicative of concerning dehydration. 11/10 continue tx. more talkative, although guarded. No overt delusional content reported. denies SI/HI. 11/11: will order CMP for tomorrow morning given uncertainty ref PO intake 11/13: increase in BUN and Cr due to dehydration 11/14: continue tx. refuses medications but unable to provide explanation as to why not show understanding in terms of effects of decrease oral intake on renal function. 11/15: unchanged from last week. intermittent meals, BUN mildly elevated. court tomorrow. 11/16: court deferred for BEHZAD. no change in presentation. place on 1:1 for observation of PO intake. lying all day in bed, PMR, with shades drawn, for a darkened room. refusing medications. 11/17: DC olanzapine. offer SSRI. eating and drinking this morning, after having been put on 1:1. continue current mgmt. commitment hearing likely next . 11/18: refusing to look at or speak with MD. clearly ate and drank more yesterday, up and out of room more. nevertheless, spends vast majority of his time lying in bed in the dark. refusing meds. 11/19: ate more yesterday and last night. DC 1:1. appearing catatonic today, no eye blink staring at ceiling not responding. 11/20: moderate PO intake yesterday. appearing more catatonic today. continue to offer meds. 11/21: catatonic. no report on sleep or PO intake as pt is off 1:1. continue to offer meds. 11/22: catatonic. labs reassuring. court tomorrow. 11/23: catatonic. committed and ordered meds in court. 11/24: start ativan 2 mg TID with IM back-up for catatonia. plan to start neuroleptics and anti-depressants once catatonia improved. 11/25: decrease ativan to 1mg tid as he had no response to 2 mg and might be experiencing sedation from it 11/26: More alert on lower ativan dose but remains non-verbal and lying in bed 11/27 increase ativan back to 2mg po TID back up IM. 11/28: T/C gaining IV access to facilitate delivery of ativan; plan to increase to QID dosing. remains catatonic. case d/w nursing administration and clinical specialist medical deviceequity director. 11/29: gain IV access today, start ativan 2 mg IV QID. was out of bed, eating and speaking yesterday evening. 11/30: 1:1 as he removed IV access, apparently. was up in kitchen getting food on evening shift. continue current mgmt. 12/01: up twice in the past 24H, ate some, swore that lights in his room had been turned on. T/C adding valium 2 mg TID IV (per court order, maximum of 8 mg ativan may be given per day) and/or antipsychotic to regimen. case D/W david. 12/02: Check comprehensive metabolic labs in AM. Continue current management. 12/03: Improved post IM dose of Zyprexa last night. Ate better. More communicative. Continue current plan of care. 12/04: some improvement over w/e. increase IM zyprexa t HS to 5 mg each. continue current mgmt. 12/05: continue current mgmt. up several times yesterday, had conversation with reza hilton, observed eating dinner. 12/06: less active yesterday. did not receive IM zyprexa last night. continue current mgmt. 12/07: received zyprexa IM last night. up for breakfast this morning, exchanged some words with MD for first time in weeks. indicated he has a depressed mood. not opposed to anti-depressant. will start prozac liquid daily. 12/08: lying in bed, not responsive. several interactions with staff yesterday, limited and often non-verbal. refused PO prozac. continue current mgmt. 12/09: still catatonic. 12/10 still catatonic 12/11/22 Patient intermittently responsive often refusing p.o. meds may require ECT 12/12/2022 Patient remains mostly electively mute intermittently catatonic with some periods of verbal discourse 12/13/22 more verbal hx of recurrent depression still gets iv ativan refuses po meds 12 14 22 Continue Ativan and intravenous is encouraged fluoxetine continue olanzapine 5 mg patient does not appear to be psychotic would encourage ECT 12/15/2022 Continue plan of care labs reviewed sodium creatinine within normal limits 12/16: Continue current regimen and plans. Switch Zyprexa to a.m. use. 12/17: Continue current regimen and plans. Decrease Ativan by 2 mg and increase Zyprexa by 10 mg 12/18: continue current regimen. no change in catatonic presentation. 12/19: return ativan to 2 mg QID and zyprexa to 10 mg QHS only. 12/20: due to possibility of akathisia from zyprexa, will try lower potency anti-psychotic, thorazine. DC zyprexa and start thorazine 100 mg PO QHS with 50 mg IM if refuses PO. 12/21: received thorazine last NOC, IM. ate dinner and spoke with EMERY cobb. generally no improvement, no change in presentation. 12/22: awake briefly this morning, endorsing depression. vague, unable to state preference for Tx. continue current mgmt. hearing scheduled for next sunday re ECT. 12/23 ck labs consider iv fluids get med clearance ect 12/24/2022 Of Thorazine discontinued has not been effective can lower blood pressure and someone already with periods of dehydration strongly would benefit from ECT trial 12/25: continue current mgmt. up briefly today to move rooms. ate 3 meals yesterday, reportedly. hearing tomorrow for ECT. Reason for continued inpatient stay Substantial Risk for: harm to self, inability to function and rapid decompensation Time Spent With Patient Time: Total time managing care of this patient today __35__ minutes.
[2022-12-25 20:00] VITALS: RESP 16
--- NOTE | 2022-12-26 | ECG_ITS ---
Test Reason : ect clearence Blood Pressure : / mmHG Vent. Rate : 056 BPM Atrial Rate : 056 BPM P-R Int : 140 ms QRS Dur : 092 ms QT Int : 394 ms P-R-T Axes : 037 063 058 degrees QTc Int : 380 ms Sinus bradycardia with sinus arrhythmia Otherwise normal ECG When compared with ECG of 02-NOV-2022 14:15, QT has shortened Referred By: Wu Fraga Electronically Signed By:CAROLYNN JOHNSON
[2022-12-26 09:00] VITALS: BP 112/63; PULSE 74; RESP 18; TEMP 36.6; O2SAT 96
[2022-12-26] MEDS: LORazepam 2 MG/ML VIAL IVPUSH ×3 (09:10→21:25)
[2022-12-26 09:35] VITALS: BP 104/60; PULSE 62
[2022-12-26 13:25] VITALS: BP 101/62; PULSE 62
--- NOTE | 2022-12-26 15:46 | P.PNPSI_ITS ---
Subjective Subjective Date of Service: 12/26/22 Reason For Visit: catatonia Interim History: staring today, no responses. per staff, isolating. getting IV ativan. refusing PO meds. Mental Status Exam Mental Status Exam Narrative: Very poor self-care. lying in bed staring, not responding to verbal prompts. cooperative. flat affect. no SI/HI/AVH expressed. Insight and judgment appears limited Diagnostics Vital Signs (24Hr): Vital Signs - 24 hr 12/25/22 20:00 12/26/22 09:00 12/26/22 09:35 Temperature 97.9 F Pulse Rate 74 62 Respiratory Rate 16 18 Blood Pressure 112/63 104/60 Pulse Oximetry 96 Oxygen Delivery Method Room Air 12/26/22 13:25 Temperature Pulse Rate 62 Respiratory Rate Blood Pressure 101/62 Pulse Oximetry Oxygen Delivery Method Labs 12/23/22 17:51 Medications Medications Current Medications Acetaminophen (Acetaminophen 325 Mg Tablet) 650 mg PO Q6H PRN PRN Reason: Headache/Pain Mild Scale (1-3) Al Hydroxide/Mg Hydroxide (Magnesium Hydrox/Alum Hydrox 30 Ml Oral.Susp) 30 ml PO Q6H PRN PRN Reason: Heartburn/Nausea Artificial Tears (Artificial Tears 15 Ml Drops) 2 drop EYE-BOTH Q4H PRN PRN Reason: Dry Eyes Last Admin: 12/02/22 14:19 Dose: 2 drop Chlorpromazine HCl (Chlorpromazine Hcl 100 Mg Tablet) 100 mg PO BEDTIME GABRIEL Last Admin: 12/25/22 22:12 Dose: Not Given Fluoxetine HCl (Fluoxetine Hcl Oral Solution 20 Mg/5 Ml Solution) 20 mg PO DAILY [facility] Last Admin: 12/26/22 09:11 Dose: Not Given Hydroxyzine HCl (Hydroxyzine Hcl 25 Mg Tablet) 25 mg PO Q6H PRN PRN Reason: Anxiety Lorazepam (Lorazepam 2 Mg/Ml Vial) 2 mg IVPUSH TID GABRIEL Magnesium Hydroxide (Milk Of Magnesia 30 Ml Oral.Susp) 30 ml PO DAILY PRN PRN Reason: Constipation Trazodone HCl (Trazodone Hcl 50 Mg Tablet) 50 mg PO BEDTIME PRN PRN Reason: Insomnia Allergies Allergies Allergy/AdvReac Type Severity Reaction Status Date / Time No Known Allergies Allergy Verified 10/31/22 14:47 Assessment & Plan Assessment & Plan (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 11/04: pt refusing meds and not taking anything PO. nevertheless appears slightly improved from yesterday, more verbal with less latency of response. advised to take meds and fluids. 11/05: ate and drank some last night. refusing meds. no longer grossly catatonic. continue current mgmt. 11/06: no PO intake in past 24H. refusing meds. parnell warning, 3-day up . 11/07: no food, had some water last night. recheck BMP. completed commitment paperwork. refusing meds. 11/08: denies eating or drinking but yesterday's breakfast tray was empty on return. commitment filed. refusing meds. 11/09: continues without PO intake, not attending to ADLs. refusing meds. hearing scheduled for next . labs from yesterday not indicative of concerning dehydration. 11/10 continue tx. more talkative, although guarded. No overt delusional content reported. denies SI/HI. 11/11: will order CMP for tomorrow morning given uncertainty ref PO intake 11/13: increase in BUN and Cr due to dehydration 11/14: continue tx. refuses medications but unable to provide explanation as to why not show understanding in terms of effects of decrease oral intake on renal function. 11/15: unchanged from last week. intermittent meals, BUN mildly elevated. court tomorrow. 11/16: court deferred for BEHZAD. no change in presentation. place on 1:1 for observation of PO intake. lying all day in bed, PMR, with shades drawn, for a darkened room. refusing medications. 11/17: DC olanzapine. offer SSRI. eating and drinking this morning, after having been put on 1:1. continue current mgmt. commitment hearing likely next . 11/18: refusing to look at or speak with MD. clearly ate and drank more yesterday, up and out of room more. nevertheless, spends vast majority of his time lying in bed in the dark. refusing meds. 11/19: ate more yesterday and last night. DC 1:1. appearing catatonic today, no eye blink staring at ceiling not responding. 11/20: moderate PO intake yesterday. appearing more catatonic today. continue to offer meds. 11/21: catatonic. no report on sleep or PO intake as pt is off 1:1. continue to offer meds. 11/22: catatonic. labs reassuring. court tomorrow. 11/23: catatonic. committed and ordered meds in court. 11/24: start ativan 2 mg TID with IM back-up for catatonia. plan to start neuroleptics and anti-depressants once catatonia improved. 11/25: decrease ativan to 1mg tid as he had no response to 2 mg and might be experiencing sedation from it 11/26: More alert on lower ativan dose but remains non-verbal and lying in bed 11/27 increase ativan back to 2mg po TID back up IM. 11/28: T/C gaining IV access to facilitate delivery of ativan; plan to increase to QID dosing. remains catatonic. case d/w nursing administration and medical dosimetristbroadcast director operations. 11/29: gain IV access today, start ativan 2 mg IV QID. was out of bed, eating and speaking yesterday evening. 11/30: 1:1 as he removed IV access, apparently. was up in kitchen getting food on evening shift. continue current mgmt. 12/01: up twice in the past 24H, ate some, swore that lights in his room had bee n turned on. T/C adding valium 2 mg TID IV (per court order, maximum of 8 mg ativan may be given per day) and/or antipsychotic to regimen. case D/W david. 12/02: Check comprehensive metabolic labs in AM. Continue current management. 12/03: Improved post IM dose of Zyprexa last night. Ate better. More communicative. Continue current plan of care. 12/04: some improvement over w/e. increase IM zyprexa t HS to 5 mg each. continue current mgmt. 12/05: continue current mgmt. up several times yesterday, had conversation with reza nurse, observed eating dinner. 12/06: less active yesterday. did not receive IM zyprexa last night. continue current mgmt. 12/07: received zyprexa IM last night. up for breakfast this morning, exchanged some words with MD for first time in weeks. indicated he has a depressed mood. not opposed to anti-depressant. will start prozac liquid daily. 12/08: lying in bed, not responsive. several interactions with staff yesterday, limited and often non-verbal. refused PO prozac. continue current mgmt. 12/09: still catatonic. 12/10 still catatonic 12/11/22 Patient intermittently responsive often refusing p.o. meds may require ECT 12/12/2022 Patient remains mostly electively mute intermittently catatonic with some periods of verbal discourse 12/13/22 more verbal hx of recurrent depression still gets iv ativan refuses po meds 12 14 22 Continue Ativan and intravenous is encouraged fluoxetine continue olanzapine 5 mg patient does not appear to be psychotic would encourage ECT 12/15/2022 Continue plan of care labs reviewed sodium creatinine within normal limits 12/16: Continue current regimen and plans. Switch Zyprexa to a.m. use. 12/17: Continue current regimen and plans. Decrease Ativan by 2 mg and increase Zyprexa by 10 mg 12/18: continue current regimen. no change in catatonic presentation. 12/19: return ativan to 2 mg QID and zyprexa to 10 mg QHS only. 12/20: due to possibility of akathisia from zyprexa, will try lower potency anti- psychotic, thorazine. DC zyprexa and start thorazine 100 mg PO QHS with 50 mg IM if refuses PO. 12/21: received thorazine last NOC, IM. ate dinner and spoke with EMERY cobb. generally no improvement, no change in presentation. 12/22: awake briefly this morning, endorsing depression. vague, unable to state preference for Tx. continue current mgmt. hearing scheduled for next sunday re ECT. 12/23 ck labs consider iv fluids get med clearance ect 12/24/2022 Of Thorazine discontinued has not been effective can lower blood pressure and someone already with periods of dehydration strongly would benefit from ECT trial 12/25: continue current mgmt. up briefly today to move rooms. ate 3 meals yesterday, reportedly. hearing tomorrow for ECT. 12/26: staring today, no responses. hearing held today, judgment pending. decrease ativan to 2 mg TID in anticipation of ECT. medical clearance and EKG ordered. Reason for continued inpatient stay Substantial Risk for: harm to self, inability to function and rapid decompensation Time Spent With Patient Time: Total time managing care of this patient today __75__ minutes.
--- NOTE | 2022-12-26 18:31 | P.CONHOSP_ITS ---
History of Present Illness Data of Consult Service Date: 12/26/22 Requesting physician: Wu Fraga Primary Care Provider: Unknown Physician HPI Reason for consult: ect evaluation 37 year old male with history of cocaine abuse and depression admitted to psychiatry with consult placed to hospitalist service for ect evaluation. The patient is lying in bed and is not much engaged in interview. He denies any seizure history, cardiovascular disease, or chf. He denies any sob, lightheadedness, palpitations, or chest pain. He is able to ambulate long distances without getting short of breath and can not ascending stairs without any respiratory difficulty. At this time, I do not see any medical contraindications that exist to prevent patient from undergoing ECT treatments [facility] Medical History Cocaine use disorder Social History Household Members: None Housing: Other Housing Other:: TSS Unable to assess alcohol history related to: Refusing to respond Patient Tobacco Use Status: Never used Tobacco Second Hand Smoke Exposure: No Use of substances other than those prescribed or required for medical reasons: No Currently Displaying Signs/Symptoms of Drug Intoxication Withdrawal: No Have you been hit, kicked, punched, or otherwise hurt by someone within the past year? If so, by whom?: No Do you feel safe in your current relationship?: No Current Relationship Is there a partner from a previous relationship who is making you feel unsafe now?: No Are you made to feel afraid or neglected: No Advance Directives: No Advance Directives Information Provided: Yes Advance Directives on File: No Do you have thoughts of harming others: None Do you have a plan to hurt others: No Plan Recently lost weight without trying: Unsure Nutrition Risks: No Nutritional Risk service: No Sexual orientation: Decline to Answer Meds Allergies Allergy/AdvReac Type Severity Reaction Status Date / Time No Known Allergies Allergy Verified 10/31/22 14:47 Active Medications: Current Medications Acetaminophen (Acetaminophen 325 Mg Tablet) 650 mg PO Q6H PRN PRN Reason: Headache/Pain Mild Scale (1-3) Al Hydroxide/Mg Hydroxide (Magnesium Hydrox/Alum Hydrox 30 Ml Oral.Susp) 30 ml PO Q6H PRN PRN Reason: Heartburn/Nausea Artificial Tears (Artificial Tears 15 Ml Drops) 2 drop EYE-BOTH Q4H PRN PRN Reason: Dry Eyes Last Admin: 12/02/22 14:19 Dose: 2 drop Chlorpromazine HCl (Chlorpromazine Hcl 100 Mg Tablet) 100 mg PO BEDTIME GABRIEL Last Admin: 12/25/22 22:12 Dose: Not Given Fluoxetine HCl (Fluoxetine Hcl Oral Solution 20 Mg/5 Ml Solution) 20 mg PO DAILY GABRIEL Last Admin: 12/26/22 09:11 Dose: Not Given Hydroxyzine HCl (Hydroxyzine Hcl 25 Mg Tablet) 25 mg PO Q6H PRN PRN Reason: Anxiety Lorazepam (Lorazepam 2 Mg/Ml Vial) 2 mg IVPUSH TID GABRIEL Magnesium Hydroxide (Milk Of Magnesia 30 Ml Oral.Susp) 30 ml PO DAILY PRN PRN Reason: Constipation Trazodone HCl (Trazodone Hcl 50 Mg Tablet) 50 mg PO BEDTIME PRN PRN Reason: Insomnia Home Medications Medication Instructions Recorded Confirmed Last Taken Type No Known Home Meds 10/31/22 11/04/22 Unknown History Physical Exam Vital Signs and Narrative: Vital Signs: Last Vital Signs Temp 97.9 F 12/26/22 09:00 Pulse 62 12/26/22 13:25 Resp 18 12/26/22 09:00 BP 101/62 12/26/22 13:25 Pulse Ox 96 12/26/22 09:00 O2 Del Method Room Air 12/26/22 09:00 Results Labs 12/23/22 17:51 Assessment and Plan Time Spent With Patient Time: Total time managing care of this patient today ____ minutes.
[2022-12-26 21:20] VITALS: BP 108/72; PULSE 83; RESP 16; TEMP 36.4; O2SAT 94
[2022-12-27] MEDS: LORazepam 2 MG/ML VIAL IM ×3 (11:54→21:13)
[2022-12-27 12:21] VITALS: BP 110/59; PULSE 68; RESP 18; TEMP 36.7; O2SAT 96
--- NOTE | 2022-12-27 15:30 | HO.PSYCHPN ---
Subjective Subjective Date of Service: 12/27/22 Reason For Visit: catatonia Interim History: no change in presentation. staring without blinking today, not responding to verbal prompts. Mental Status Exam Mental Status Exam Narrative: Very poor self-care. lying in bed staring, not responding to verbal prompts. cooperative. flat affect. no SI/HI/AVH expressed. Insight and judgment appears limited Diagnostics Vital Signs (24Hr): Vital Signs - 24 hr 12/26/22 21:20 12/27/22 12:21 Temperature 97.6 F 98.1 F Pulse Rate 83 68 Respiratory Rate 16 18 Blood Pressure 108/72 110/59 L Pulse Oximetry 94 96 Oxygen Delivery Method Room Air Room Air Labs 12/23/22 17:51 Medications Medications Current Medications Acetaminophen (Acetaminophen 325 Mg Tablet) 650 mg PO Q6H PRN PRN Reason: Headache/Pain Mild Scale (1-3) Al Hydroxide/Mg Hydroxide (Magnesium Hydrox/Alum Hydrox 30 Ml Oral.Susp) 30 ml PO Q6H PRN PRN Reason: Heartburn/Nausea Artificial Tears (Artificial Tears 15 Ml Drops) 2 drop EYE-BOTH Q4H PRN PRN Reason: Dry Eyes Last Admin: 12/02/22 14:19 Dose: 2 drop Chlorpromazine HCl (Chlorpromazine Hcl 100 Mg Tablet) 100 mg PO BEDTIME [facility] Last Admin: 12/26/22 21:41 Dose: Not Given Fluoxetine HCl (Fluoxetine Hcl Oral Solution 20 Mg/5 Ml Solution) 20 mg PO DAILY [facility] Last Admin: 12/27/22 11:45 Dose: Not Given Hydroxyzine HCl (Hydroxyzine Hcl 25 Mg Tablet) 25 mg PO Q6H PRN PRN Reason: Anxiety Lorazepam (Lorazepam 2 Mg/Ml Vial) 2 mg IVPUSH TID [facility] Last Admin: 12/27/22 11:45 Dose: Not Given Lorazepam (Lorazepam 1 Mg Tablet) 1 mg PO TID [facility] Lorazepam (Lorazepam 2 Mg/Ml Vial) 2 mg IM TID PRN PRN Reason: refusal of PO Magnesium Hydroxide (Milk Of Magnesia 30 Ml Oral.Susp) 30 ml PO DAILY PRN PRN Reason: Constipation Trazodone HCl (Trazodone Hcl 50 Mg Tablet) 50 mg PO BEDTIME PRN PRN Reason: Insomnia Allergies Allergies Allergy/AdvReac Type Severity Reaction Status Date / Time No Known Allergies Allergy Verified 10/31/22 14:47 Assessment & Plan Assessment & Plan (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 11/04: pt refusing meds and not taking anything PO. nevertheless appears slightly improved from yesterday, more verbal with less latency of response. advised to take meds and fluids. 11/05: ate and drank some last night. refusing meds. no longer grossly catatonic. continue current mgmt. 11/06: no PO intake in past 24H. refusing meds. parnell warning, 3-day up . 11/07: no food, had some water last night. recheck BMP. completed commitment paperwork. refusing meds. 11/08: denies eating or drinking but yesterday's breakfast tray was empty on return. commitment filed. refusing meds. 11/09: continues without PO intake, not attending to ADLs. refusing meds. hearing scheduled for next . labs from yesterday not indicative of concerning dehydration. 11/10 continue tx. more talkative, although guarded. No overt delusional content reported. denies SI/HI. 11/11: will order CMP for tomorrow morning given uncertainty ref PO intake 11/13: increase in BUN and Cr due to dehydration 11/14: continue tx. refuses medications but unable to provide explanation as to why not show understanding in terms of effects of decrease oral intake on renal function. 11/15: unchanged from last week. intermittent meals, BUN mildly elevated. court tomorrow. 11/16: court deferred for BEHZAD. no change in presentation. place on 1:1 for observation of PO intake. lying all day in bed, PMR, with shades drawn, for a darkened room. refusing medications. 11/17: DC olanzapine. offer SSRI. eating and drinking this morning, after having been put on 1:1. continue current mgmt. commitment hearing likely next . 11/18: refusing to look at or speak with MD. clearly ate and drank more yesterday, up and out of room more. nevertheless, spends vast majority of his time lying in bed in the dark. refusing meds. 11/19: ate more yesterday and last night. DC 1:1. appearing catatonic today, no eye blink staring at ceiling not responding. 11/20: moderate PO intake yesterday. appearing more catatonic today. continue to offer meds. 11/21: catatonic. no report on sleep or PO intake as pt is off 1:1. continue to offer meds. 11/22: catatonic. labs reassuring. court tomorrow. 11/23: catatonic. committed and ordered meds in court. 11/24: start ativan 2 mg TID with IM back-up for catatonia. plan to start neuroleptics and anti-depressants once catatonia improved. 11/25: decrease ativan to 1mg tid as he had no response to 2 mg and might be experiencing sedation from it 11/26: More alert on lower ativan dose but remains non-verbal and lying in bed 11/27 increase ativan back to 2mg po TID back up IM. 11/28: T/C gaining IV access to facilitate delivery of ativan; plan to increase to QID dosing. remains catatonic. case d/w nursing administration and bio medical techniciandirector of corporate communications. 11/29: gain IV access today, start ativan 2 mg IV QID. was out of bed, eating and speaking yesterday evening. 11/30: 1:1 as he removed IV access, apparently. was up in kitchen getting food on evening shift. continue current mgmt. 12/01: up twice in the past 24H, ate some, swore that lights in his room had been turned on. T/C adding valium 2 mg TID IV (per court order, maximum of 8 mg ativan may be given per day) and/or antipsychotic to regimen. case D/W david. 12/02: Check comprehensive metabolic labs in AM. Continue current management. 12/03: Improved post IM dose of Zyprexa last night. Ate better. More communicative. Continue current plan of care. 12/04: some improvement over w/e. increase IM zyprexa t HS to 5 mg each. continue current mgmt. 12/05: continue current mgmt. up several times yesterday, had conversation with reza nurse, observed eating dinner. 12/06: less active yesterday. did not receive IM zyprexa last night. continue current mgmt. 12/07: received zyprexa IM last night. up for breakfast this morning, exchanged some words with MD for first time in weeks. indicated he has a depressed mood. not opposed to anti-depressant. will start prozac liquid daily. 12/08: lying in bed, not responsive. several interactions with staff yesterday, limited and often non-verbal. refused PO prozac. continue current mgmt. 12/09: still catatonic. 12/10 still catatonic 12/11/22 Patient intermittently responsive often refusing p.o. meds may require ECT 12/12/2022 Patient remains mostly electively mute intermittently catatonic with some periods of verbal discourse 12/13/22 more verbal hx of recurrent depression still gets iv ativan refuses po meds 12 14 22 Continue Ativan and intravenous is encouraged fluoxetine continue olanzapine 5 mg patient does not appear to be psychotic would encourage ECT 12/15/2022 Continue plan of care labs reviewed sodium creatinine within normal limits 12/16: Continue current regimen and plans. Switch Zyprexa to a.m. use. 12/17: Continue current regimen and plans. Decrease Ativan by 2 mg and increase Zyprexa by 10 mg 12/18: continue current regimen. no change in catatonic presentation. 12/19: return ativan to 2 mg QID and zyprexa to 10 mg QHS only. 12/20: due to possibility of akathisia from zyprexa, will try lower potency anti-psychotic, thorazine. DC zyprexa and start thorazine 100 mg PO QHS with 50 mg IM if refuses PO. 12/21: received thorazine last NOC, IM. ate dinner and spoke with EMERY cobb. generally no improvement, no change in presentation. 12/22: awake briefly this morning, endorsing depression. vague, unable to state preference for Tx. continue current mgmt. hearing scheduled for next sunday re ECT. 12/23 ck labs consider iv fluids get med clearance ect 12/24/2022 Of Thorazine discontinued has not been effective can lower blood pressure and someone already with periods of dehydration strongly would benefit from ECT trial 12/25: continue current mgmt. up briefly today to move rooms. ate 3 meals yesterday, reportedly. hearing tomorrow for ECT. 12/26: staring today, no responses. hearing held today, judgment pending. decrease ativan to 2 mg TID in anticipation of ECT. medical clearance and EKG ordered. 12/26: staring today, no responses. IV access lost, will give IM ativan until IV access regained. awaiting word from court on ECT. Reason for continued inpatient stay Substantial Risk for: inability to function and rapid decompensation Time Spent With Patient Time: Total time managing care of this patient today ____ minutes.
[2022-12-27 21:10] VITALS: BP 109/57; PULSE 73; RESP 14; TEMP 36.6; O2SAT 96
[2022-12-28 08:10] VITALS: BP 100/55; PULSE 60; RESP 18; TEMP 36.6; O2SAT 98
[2022-12-28] MEDS: LORazepam 2 MG/ML VIAL IM ×2 (11:00→17:06)
--- NOTE | 2022-12-28 14:33 | PC.NURSE ---
Pt did not eat anything from Breakfast or lunch tray.
--- NOTE | 2022-12-28 14:58 | P.PNPSI_ITS ---
Subjective Subjective Date of Service: 12/28/22 Reason For Visit: catatonia Interim History: catatonic. not responsive to verbal prompts. informed of ECT approval and ECT procedure described to pt. no response. per staff, no change in presentation. Mental Status Exam Mental Status Exam Narrative: Very poor self-care. lying in bed with sheet pulled over face, not responding to verbal prompts. not cooperative. no SI/HI/AVH expressed. Insight and judgment appears limited Diagnostics Vital Signs (24Hr): Vital Signs - 24 hr 12/27/22 21:10 12/28/22 08:10 Temperature 98 F 97.9 F Pulse Rate 73 60 Respiratory Rate 14 18 Blood Pressure 109/57 L 100/55 L Pulse Oximetry 96 98 Oxygen Delivery Method Room Air Room Air Labs 12/23/22 17:51 Medications Medications Current Medications Acetaminophen (Acetaminophen 325 Mg Tablet) 650 mg PO Q6H PRN PRN Reason: Headache/Pain Mild Scale (1-3) Al Hydroxide/Mg Hydroxide (Magnesium Hydrox/Alum Hydrox 30 Ml Oral.Susp) 30 ml PO Q6H PRN PRN Reason: Heartburn/Nausea Artificial Tears (Artificial Tears 15 Ml Drops) 2 drop EYE-BOTH Q4H PRN PRN Reason: Dry Eyes Last Admin: 12/02/22 14:19 Dose: 2 drop Chlorpromazine HCl (Chlorpromazine Hcl 100 Mg Tablet) 100 mg PO BEDTIME [facility] Last Admin: 12/27/22 21:18 Dose: Not Given Fluoxetine HCl (Fluoxetine Hcl Oral Solution 20 Mg/5 Ml Solution) 20 mg PO DAILY [facility] Last Admin: 12/28/22 11:01 Dose: Not Given Hydroxyzine HCl (Hydroxyzine Hcl 25 Mg Tablet) 25 mg PO Q6H PRN PRN Reason: Anxiety Lorazepam (Lorazepam 2 Mg/Ml Vial) 2 mg IM BID@0900,1700 [facility] Lorazepam (Lorazepam 1 Mg Tablet) 2 mg PO BID@0900,1700 [facility] Magnesium Hydroxide (Milk Of Magnesia 30 Ml Oral.Susp) 30 ml PO DAILY PRN PRN Reason: Constipation Trazodone HCl (Trazodone Hcl 50 Mg Tablet) 50 mg PO BEDTIME PRN PRN Reason: Insomnia Allergies Allergies Allergy/AdvReac Type Severity Reaction Status Date / Time No Known Allergies Allergy Verified 10/31/22 14:47 Assessment & Plan Assessment & Plan (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 11/04: pt refusing meds and not taking anything PO. nevertheless appears slightly improved from yesterday, more verbal with less latency of response. advised to take meds and fluids. 11/05: ate and drank some last night. refusing meds. no longer grossly catatonic. continue current mgmt. 11/06: no PO intake in past 24H. refusing meds. parnell warning, 3-day up . 11/07: no food, had some water last night. recheck BMP. completed commitment paperwork. refusing meds. 11/08: denies eating or drinking but yesterday's breakfast tray was empty on return. commitment filed. refusing meds. 11/09: continues without PO intake, not attending to ADLs. refusing meds. hearing scheduled for next . labs from yesterday not indicative of concerning dehydration. 11/10 continue tx. more talkative, although guarded. No overt delusional content reported. denies SI/HI. 11/11: will order CMP for tomorrow morning given uncertainty ref PO intake 11/13: increase in BUN and Cr due to dehydration 11/14: continue tx. refuses medications but unable to provide explanation as to why not show understanding in terms of effects of decrease oral intake on renal function. 11/15: unchanged from last week. intermittent meals, BUN mildly elevated. court tomorrow. 11/16: court deferred for BEHZAD. no change in presentation. place on 1:1 for observation of PO intake. lying all day in bed, PMR, with shades drawn, for a darkened room. refusing medications. 11/17: DC olanzapine. offer SSRI. eating and drinking this morning, after having been put on 1:1. continue current mgmt. commitment hearing likely next . 11/18: refusing to look at or speak with MD. clearly ate and drank more yesterday, up and out of room more. nevertheless, spends vast majority of his time lying in bed in the dark. refusing meds. 11/19: ate more yesterday and last night. DC 1:1. appearing catatonic today, no eye blink staring at ceiling not responding. 11/20: moderate PO intake yesterday. appearing more catatonic today. continue to offer meds. 11/21: catatonic. no report on sleep or PO intake as pt is off 1:1. continue to offer meds. 11/22: catatonic. labs reassuring. court tomorrow. 11/23: catatonic. committed and ordered meds in court. 11/24: start ativan 2 mg TID with IM back-up for catatonia. plan to start neuroleptics and anti-depressants once catatonia improved. 11/25: decrease ativan to 1mg tid as he had no response to 2 mg and might be experiencing sedation from it 11/26: More alert on lower ativan dose but remains non-verbal and lying in bed 11/27 increase ativan back to 2mg po TID back up IM. 11/28: T/C gaining IV access to facilitate delivery of ativan; plan to increase to QID dosing. remains catatonic. case d/w nursing administration and medical accountantacademic advising director. 11/29: gain IV access today, start ativan 2 mg IV QID. was out of bed, eating and speaking yesterday evening. 11/30: 1:1 as he removed IV access, apparently. was up in kitchen getting food on evening shift. continue current mgmt. 12/01: up twice in the past 24H, ate some, swore that lights in his room had been turned on. T/C adding valium 2 mg TID IV (per court order, maximum of 8 mg ativan may be given per day) and/or antipsychotic to regimen. case D/W david. 12/02: Check comprehensive metabolic labs in AM. Continue current management. 12/03: Improved post IM dose of Zyprexa last night. Ate better. More communicative. Continue current plan of care. 12/04: some improvement over w/e. increase IM zyprexa t HS to 5 mg each. continue current mgmt. 12/05: continue current mgmt. up several times yesterday, had conversation with reza nurse, observed eating dinner. 12/06: less active yesterday. did not receive IM zyprexa last night. continue current mgmt. 12/07: received zyprexa IM last night. up for breakfast this morning, exchanged some words with MD for first time in weeks. indicated he has a depressed mood. not opposed to anti-depressant. will start prozac liquid daily. 12/08: lying in bed, not responsive. several interactions with staff yesterday, limited and often non-verbal. refused PO prozac. continue current mgmt. 12/09: still catatonic. 12/10 still catatonic 12/11/22 Patient intermittently responsive often refusing p.o. meds may require ECT 12/12/2022 Patient remains mostly electively mute intermittently catatonic with some periods of verbal discourse 12/13/22 more verbal hx of recurrent depression still gets iv ativan refuses po meds 12 14 22 Continue Ativan and intravenous is encouraged fluoxetine continue olanzapine 5 mg patient does not appear to be psychotic would encourage ECT 12/15/2022 Continue plan of care labs reviewed sodium creatinine within normal limits 12/16: Continue current regimen and plans. Switch Zyprexa to a.m. use. 12/17: Continue current regimen and plans. Decrease Ativan by 2 mg and increase Zyprexa by 10 mg 12/18: continue current regimen. no change in catatonic presentation. 12/19: return ativan to 2 mg QID and zyprexa to 10 mg QHS only. 12/20: due to possibility of akathisia from zyprexa, will try lower potency anti- psychotic, thorazine. DC zyprexa and start thorazine 100 mg PO QHS with 50 mg IM if refuses PO. 12/21: received thorazine last NOC, IM. ate dinner and spoke with EMERY cobb. generally no improvement, no change in presentation. 12/22: awake briefly this morning, endorsing depression. vague, unable to state preference for Tx. continue current mgmt. hearing scheduled for next sunday re ECT. 12/23 ck labs consider iv fluids get med clearance ect 12/24/2022 Of Thorazine discontinued has not been effective can lower blood pressure and someone already with periods of dehydration strongly would benefit from ECT tri al 12/25: continue current mgmt. up briefly today to move rooms. ate 3 meals yesterday, reportedly. hearing tomorrow for ECT. 12/26: staring today, no responses. hearing held today, judgment pending. decrease ativan to 2 mg TID in anticipation of ECT. medical clearance and EKG ordered. 12/26: staring today, no responses. IV access lost, will give IM ativan until IV access regained. awaiting word from court on ECT. 12/27: medically cleared for ECT, court ordered ECT. start ECT tomorrow. case d/w david in detail. taper ativan to 4 mg today, may need flumazenil tomorrow prior to ECT. continue ativan taper over w/e. Reason for continued inpatient stay Substantial Risk for: harm to self, inability to function and rapid decompensation Time Spent With Patient Time: Total time managing care of this patient today __35__ minutes.
[2022-12-28 19:50] VITALS: BP 110/60; PULSE 70; RESP 18; TEMP 36.8; O2SAT 97
[2022-12-29] VITALS (11 sets, daily range): BP systolic 93–124; BP diastolic 57–78; PULSE 53–83; RESP 15–18; TEMP 36.4–37; O2SAT 95–100; BMI 23.1
--- NOTE | 2022-12-29 09:04 | P.CONAN_ITS ---
[facility] Active Problems Active Problems: All Active Problems (Updated 11/11/22 @ 00:11 by Ez Morales) Catatonia (Acute) Cocaine use disorder, mild, in early remission (Acute) Mood disorder (Acute) Cocaine use disorder (Acute) Depression (Acute) Anorexia (Acute) Past Medical History Medical History Cocaine use disorder Family History Family history of problems with anesthesia: No Surgical History History of Problems with Anesthesia: No Social History Social History Household Members: None Housing: Other Housing Other:: TSS Unable to assess alcohol history related to: Refusing to respond Patient Tobacco Use Status: Never used Tobacco Second Hand Smoke Exposure: No Use of substances other than those prescribed or required for medical reasons: No Currently Displaying Signs/Symptoms of Drug Intoxication Withdrawal: No Have you been hit, kicked, punched, or otherwise hurt by someone within the past year? If so, by whom?: No Do you feel safe in your current relationship?: No Current Relationship Is there a partner from a previous relationship who is making you feel unsafe now?: No Are you made to feel afraid or neglected: No Advance Directives: No Advance Directives Information Provided: Yes Advance Directives on File: No Do you have thoughts of harming others: None Do you have a plan to hurt others: No Plan Recently lost weight without trying: Unsure Nutrition Risks: No Nutritional Risk service: No Sexual orientation: Decline to Answer Meds Allergies Allergy/AdvReac Type Severity Reaction Status Date / Time No Known Allergies Allergy Verified 10/31/22 14:47 Active Medications: Current Medications Acetaminophen (Acetaminophen 325 Mg Tablet) 650 mg PO Q6H PRN PRN Reason: Headache/Pain Mild Scale (1-3) Al Hydroxide/Mg Hydroxide (Magnesium Hydrox/Alum Hydrox 30 Ml Oral.Susp) 30 ml PO Q6H PRN PRN Reason: Heartburn/Nausea Artificial Tears (Artificial Tears 15 Ml Drops) 2 drop EYE-BOTH Q4H PRN PRN Reason: Dry Eyes Last Admin: 12/02/22 14:19 Dose: 2 drop Chlorpromazine HCl (Chlorpromazine Hcl 100 Mg Tablet) 100 mg PO BEDTIME [facility] Last Admin: 12/28/22 22:06 Dose: Not Given Fluoxetine HCl (Fluoxetine Hcl Oral Solution 20 Mg/5 Ml Solution) 20 mg PO DAILY [facility] Last Admin: 12/28/22 11:01 Dose: Not Given Hydroxyzine HCl (Hydroxyzine Hcl 25 Mg Tablet) 25 mg PO Q6H PRN PRN Reason: Anxiety Lorazepam (Lorazepam 2 Mg/Ml Vial) 2 mg IM BID@0900,1700 [facility] Last Admin: 12/28/22 17:06 Dose: 2 mg Lorazepam (Lorazepam 1 Mg Tablet) 2 mg PO BID@0900,1700 [facility] Last Admin: 12/28/22 17:17 Dose: Not Given Magnesium Hydroxide (Milk Of Magnesia 30 Ml Oral.Susp) 30 ml PO DAILY PRN PRN Reason: Constipation Trazodone HCl (Trazodone Hcl 50 Mg Tablet) 50 mg PO BEDTIME PRN PRN Reason: Insomnia Home Medications Medication Instructions Recorded Confirmed Last Taken Type No Known Home Meds 10/31/22 11/04/22 Unknown History Exam Exam Date and Time: December 29, 2022 0904 Height,Weight and Vital Signs: Height 6 ft Weight 77.111 kg Last Vital Signs Temp 97.6 F 12/29/22 08:25 Pulse 53 12/29/22 08:25 Resp 18 12/29/22 08:25 BP 106/63 12/29/22 08:25 Pulse Ox 98 12/29/22 08:25 O2 Del Method Room Air 12/29/22 08:25 Pertinent Lab Results Pertinent Lab Results: Laboratory Tests 11/03/22 11/05/22 11/08/22 15:48 12:58 15:07 Sodium 142 140 Potassium 4.1 D 4.1 Chloride 108 105 Carbon Dioxide 26 28 Anion Gap 12 11 L BUN 23 H 15 Creatinine 0.73 0.83 0.72 Estim Creat Clear Calc TNP TNP TNP Estimated GFR > 60 > 60 > 60 Random Glucose 97 95 Calcium 9.1 9.7 D Total Bilirubin AST ALT Alkaline Phosphatase Total Protein Albumin 11/13/22 11/16/22 11/22/22 08:00 08:11 11:55 Sodium 140 138 137 Potassium 4.8 4.9 4.5 Chloride 103 106 106 Carbon Dioxide 22 22 25 Anion Gap 20 15 11 L BUN 25 H 16 16 Creatinine 1.07 0.97 0.86 Estim Creat Clear Calc TNP TNP TNP Estimated GFR > 60 > 60 > 60 Random Glucose 73 89 93 Calcium 10.0 9.6 9.9 Total Bilirubin 0.9 0.9 AST 21 22 ALT 16 15 Alkaline Phosphatase 62 59 Total Protein 7.1 6.8 Albumin 4.0 3.6 12/03/22 12/15/22 12/23/22 07:45 09:53 17:51 Sodium 139 139 139 Potassium 4.8 4.3 4.2 Chloride 107 106 104 Carbon Dioxide 24 23 23 Anion Gap 13 14 16 BUN 13 11 11 Creatinine 0.73 0.74 0.77 Estim Creat Clear Calc TNP TNP TNP Estimated GFR > 60 > 60 > 60 Random Glucose 103 86 79 Calcium 9.3 D 9.3 9.8 Total Bilirubin 0.5 0.7 0.8 AST 25 18 24 ALT 20 16 16 Alkaline Phosphatase 47 55 68 Total Protein 6.4 L 6.5 7.1 Albumin 3.5 3.6 4.0 Airway Mallampati Class: II TM Dist: >3cm Neck ROM: Full Assessment and Plan Assessment Anesthesia Assessment: Anesthesia Plan Discussed and Chart Reviewed Final Anesthetic Review Family History of Problems with Anesthesia: No History of Problems with Anesthesia: No NPO: Yes ASA Class: III Final Preanesthetic Review: No Changes in Pt Med Stat, Meds/Allgs Chart Reviewed, Consent Obtained/Reviewed and Anes Risks/Benef Reviewed Patient Risk: Intermediate Procedure Risk: Intermediate Anesthetic Plan Anesthetic Plan: GA Disposition: Standard PACU
--- NOTE | 2022-12-29 10:13 | MHC.SHP ---
Pre-Procedural Eval Section A Date of Service: 12/29/22 The patient is an INPATIENT: Yes Changes since office visit: No Cold of Flu in the past 2 weeks, No New Medical Problems, No Changes in Medication and No Patient answered all questions The History & Physical has been completed within 30 days and I have reviewed it.: Yes Section B Chief Complaint: catatonia Details of Present Illness: Admitted for depression, psychosis and catatonia. ECT ordered since he has failed to Ativan IVP Relevant Family History (Specify if Yes): No Relevant Social History: None Present Medications: see Short Stay Collaborative assessment Medical History: No relevant PMH History of Previous Operations: No relevant previous surgery Allergies: Allergies Allergy/AdvReac Type Severity Reaction Status Date / Time No Known Allergies Allergy Verified 10/31/22 14:47 Review of Systems Sugical H&P ROS: Negative: Constitution, Cardiovascular, Respiratory, Neurological, Psychiatric, Hem-Onc, Allergic/Immunologic, Gastrointestinal, Genitourinary, Musculoskeletal, Integumentary, Endocrine and Eyes/Ears/Nose/Throat Exam Surgical H&P Exam: Normal: HEENT, Normal: Heart, Normal: Lungs, Normal: Extremities, Normal: Abdomen, Normal: Skin and Normal: Neurological Plan Diagnosis/Plan: Unchanged I have reviewed the history and physical and performed a pertinent physical examination on my patient. No changes have occurred unless specified. Time Spent With Patient Time: Total time managing care of this patient today _20___ minutes.
--- NOTE | 2022-12-29 10:33 | HO.ECTPROC ---
ECT Procedure Note Diagnosis/Treatment Date of Service: 12/29/22 Diagnosis: Catatonia Current Treatment Number: 1 Treatment: Series Interval Clinical Notes: The patient denies prior ECT, catatonic with minimal responses but he agreed to do the procedure. Inpatient, he has not responded to IVP Ativan. Time: Total time managing care of this patient today __30__ minutes. ECT Settings Device: THYMATRON DGx Electrode Placement: Bitemporal Program/Pulse Width: 0.50 Energy Percent: 100 Seizure Duration By EEG (in seconds): 32 By Motor Observation (in seconds): 32 Medications Administration General Anesthetic: Etomidate (16) Muscle Relaxant: Succinylcholine (100) Ancillary Medications Anti-emetics: Zofran - Pre ECT Miscillaneous Medications: Propofol Airway Management Airway Management: LMA Treatment Recommendations No Changes Recommended: No change Pt Tolerated Procedure w/o Issue: Yes
[2022-12-29] MEDS: FLUoxetine HCl Oral Solution 20 MG/5 ML SOLUTION PO (12:08)
[2022-12-29] MEDS: Acetaminophen 325 MG TABLET 650 MG PO (12:15)
[2022-12-29] MEDS: LORazepam 1 MG TABLET 2 MG PO (12:16)
[2022-12-29] MEDS: Throat Lozenge, Medicated LOZENGE 1 LOZENGE MUCOUS MEM (12:23)
--- NOTE | 2022-12-29 12:29 | PC.NURSE ---
Received Pt from PACU , nurse stated he tolerated ECT well. Pt is alert and oriented to person, and task . He was unaware what Hospital he was in. Pt back to [facility] via wheelchair. He does complain of a mild headache which he rated 4/10 Tylenol given.. VSS Pt took Po medications,without a problem. Pt requests to take shower when able.
--- NOTE | 2022-12-29 13:20 | P.PNPSI_ITS ---
Subjective Subjective Date of Service: 12/29/22 Reason For Visit: catatonia Interim History: ECT #1 completed today. far more relatable, verbal today. per staff, did not take meals, did not speak, had IM meds yesterday. Mental Status Exam Mental Status Exam Narrative: Very poor self-care. lying in bed but awake and responding to verbal prompts. cooperative. no SI/HI/AVH expressed. Insight and judgment appears limited, but clearly improved after ECT #1. Diagnostics Vital Signs (24Hr): Vital Signs - 24 hr 12/28/22 19:50 12/29/22 08:11 12/29/22 08:25 Temperature 98.2 F 97.9 F 97.6 F Pulse Rate 70 58 53 Respiratory Rate 18 18 18 Blood Pressure 110/60 93/57 L 106/63 Pulse Oximetry 97 98 Oxygen Delivery Method Room Air Room Air Oxygen Flow Rate 12/29/22 08:00 12/29/22 10:44 12/29/22 10:49 Temperature 97.9 F 98.1 F Pulse Rate 58 58 73 Respiratory Rate 18 15 16 Blood Pressure 93/57 L 115/70 124/78 Pulse Oximetry 95 98 100 Oxygen Delivery Method Room Air Nasal Cannula with ETCO2 Nasal Cannula with ETCO2 Oxygen Flow Rate 2 2 12/29/22 10:55 12/29/22 10:59 12/29/22 11:13 Temperature 98.1 F Pulse Rate 64 67 68 Respiratory Rate 17 18 17 Blood Pressure 116/73 115/73 115/73 Pulse Oximetry 96 96 96 Oxygen Delivery Method Room Air Room Air Room Air Oxygen Flow Rate 12/29/22 12:05 Temperature 98.1 F Pulse Rate 83 Respiratory Rate Blood Pressure 118/71 Pulse Oximetry Oxygen Delivery Method Oxygen Flow Rate BMI result Body Mass Index 23.1 Labs 12/23/22 17:51 Medications Medications Current Medications Acetaminophen (Acetaminophen 325 Mg Tablet) 650 mg PO Q6H PRN PRN Reason: Headache/Pain Mild Scale (1-3) Last Admin: 12/29/22 12:15 Dose: 650 mg Acetaminophen (Acetaminophen 325 Mg Tablet) 650 mg PO ONCE PRN PRN Reason: Pain, Mild (Pain Scale 1-3) Al Hydroxide/Mg Hydroxide (Magnesium Hydrox/Alum Hydrox 30 Ml Oral.Susp) 30 ml PO Q6H PRN PRN Reason: Heartburn/Nausea Artificial Tears (Artificial Tears 15 Ml Drops) 2 drop EYE-BOTH Q4H PRN PRN Reason: Dry Eyes Last Admin: 12/02/22 14:19 Dose: 2 drop Benzocaine (Throat Lozenge, Medicated Lozenge) 1 lozenge MUCOUS MEM Q2H PRN PRN Reason: Sore Throat Last Admin: 12/29/22 12:23 Dose: 1 lozenge Chlorpromazine HCl (Chlorpromazine Hcl 100 Mg Tablet) 100 mg PO BEDTIME [facility] Last Admin: 12/28/22 22:06 Dose: Not Given Fluoxetine HCl (Fluoxetine Hcl Oral Solution 20 Mg/5 Ml Solution) 20 mg PO DAILY [facility] Last Admin: 12/29/22 12:08 Dose: 20 mg Hydroxyzine HCl (Hydroxyzine Hcl 25 Mg Tablet) 25 mg PO Q6H PRN PRN Reason: Anxiety Lorazepam (Lorazepam 2 Mg/Ml Vial) 2 mg IM BID@0900,1700 [facility] Last Admin: 12/29/22 12:20 Dose: Not Given Lorazepam (Lorazepam 1 Mg Tablet) 2 mg PO BID@0900,1700 [facility] Last Admin: 12/29/22 12:18 Dose: Not Given Magnesium Hydroxide (Milk Of Magnesia 30 Ml Oral.Susp) 30 ml PO DAILY PRN PRN Reason: Constipation Ondansetron HCl (Ondansetron Hcl 4 Mg/2 Ml Vial) 4 mg IVPUSH ONCE PRN PRN Reason: Nausea and Vomiting Trazodone HCl (Trazodone Hcl 50 Mg Tablet) 50 mg PO BEDTIME PRN PRN Reason: Insomnia Allergies Allergies Allergy/AdvReac Type Severity Reaction Status Date / Time No Known Allergies Allergy Verified 10/31/22 14:47 Assessment & Plan Assessment & Plan (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 11/04: pt refusing meds and not taking anything PO. nevertheless appears sl ightly improved from yesterday, more verbal with less latency of response. advised to take meds and fluids. 11/05: ate and drank some last night. refusing meds. no longer grossly catatonic. continue current mgmt. 11/06: no PO intake in past 24H. refusing meds. parnell warning, 3-day up wed. 11/07: no food, had some water last night. recheck BMP. completed commitment paperwork. refusing meds. 11/08: denies eating or drinking but yesterday's breakfast tray was empty on return. commitment filed. refusing meds. 11/09: continues without PO intake, not attending to ADLs. refusing meds. he aring scheduled for next . labs from yesterday not indicative of concerning dehydration. 11/10 continue tx. more talkative, although guarded. No overt delusional content reported. denies SI/HI. 11/11: will order CMP for tomorrow morning given uncertainty ref PO intake 11/13: increase in BUN and Cr due to dehydration 11/14: continue tx. refuses medications but unable to provide explanation as to why not show understanding in terms of effects of decrease oral intake on renal function. 11/15: unchanged from last week. intermittent meals, BUN mildly elevated. court tomorrow. 11/16: court deferred for BEHZAD. no change in presentation. place on 1:1 for observation of PO intake. lying all day in bed, PMR, with shades drawn, for a darkened room. refusing medications. 11/17: DC olanzapine. offer SSRI. eating and drinking this morning, after having been put on 1:1. continue current mgmt. commitment hearing likely next . 11/18: refusing to look at or speak with MD. clearly ate and drank more yesterday, up and out of room more. nevertheless, spends vast majority of his time lying in bed in the dark. refusing meds. 11/19: ate more yesterday and last night. DC 1:1. appearing catatonic today, no eye blink staring at ceiling not responding. 11/20: moderate PO intake yesterday. appearing more catatonic today. continue to offer meds. 11/21: catatonic. no report on sleep or PO intake as pt is off 1:1. continue to offer meds. 11/22: catatonic. labs reassuring. court tomorrow. 11/23: catatonic. committed and ordered meds in court. 11/24: start ativan 2 mg TID with IM back-up for catatonia. plan to start neuroleptics and anti-depressants once catatonia improved. 11/25: decrease ativan to 1mg tid as he had no response to 2 mg and might be experiencing sedation from it 11/26: More alert on lower ativan dose but remains non-verbal and lying in bed 11/27 increase ativan back to 2mg po TID back up IM. 11/28: T/C gaining IV access to facilitate delivery of ativan; plan to increase to QID dosing. remains catatonic. case d/w nursing administration and medical staffing coordinatormedical director occupational health. 11/29: gain IV access today, start ativan 2 mg IV QID. was out of bed, eating and speaking yesterday evening. 11/30: 1:1 as he removed IV access, apparently. was up in kitchen getting food on evening shift. continue current mgmt. 12/01: up twice in the past 24H, ate some, swore that lights in his room had been turned on. T/C adding valium 2 mg TID IV (per court order, maximum of 8 mg ativan may be given per day) and/or antipsychotic to regimen. case D/W davdi. 12/02: Check comprehensive metabolic labs in AM. Continue current management. 12/03: Improved post IM dose of Zyprexa last night. Ate better. More communicative. Continue current plan of care. 12/04: some improvement over w/e. increase IM zyprexa t HS to 5 mg each. continue current mgmt. 12/05: continue current mgmt. up several times yesterday, had conversation with reza nurse, observed eating dinner. 12/06: less active yesterday. did not receive IM zyprexa last night. continue current mgmt. 12/07: received zyprexa IM last night. up for breakfast this morning, exchanged some words with MD for first time in weeks. indicated he has a depressed mood. not opposed to anti-depressant. will start prozac liquid daily. 12/08: lying in bed, not responsive. several interactions with staff yesterday, limited and often non-verbal. refused PO prozac. continue current mgmt. 12/09: still catatonic. 12/10 still catatonic 12/11/22 Patient intermittently responsive often refusing p.o. meds may require ECT 12/12/2022 Patient remains mostly electively mute intermittently catatonic with some periods of verbal discourse 12/13/22 more verbal hx of recurrent depression still gets iv ativan refuses po meds 12 14 22 Continue Ativan and intravenous is encouraged fluoxetine continue olanzapine 5 mg patient does not appear to be psychotic would encourage ECT 12/15/2022 Continue plan of care labs reviewed sodium creatinine within normal limits 12/16: Continue current regimen and plans. Switch Zyprexa to a.m. use. 12/17: Continue current regimen and plans. Decrease Ativan by 2 mg and increase Zyprexa by 10 mg 12/18: continue current regimen. no change in catatonic presentation. 12/19: return ativan to 2 mg QID and zyprexa to 10 mg QHS only. 12/20: due to possibility of akathisia from zyprexa, will try lower potency anti- psychotic, thorazine. DC zyprexa and start thorazine 100 mg PO QHS with 50 mg IM if refuses PO. 12/21: received thorazine last NOC, IM. ate dinner and spoke with EMERY cobb. generally no improvement, no change in presentation. 12/22: awake briefly this morning, endorsing depression. vague, unable to state preference for Tx. continue current mgmt. hearing scheduled for next sunday re ECT. 12/23 ck labs consider iv fluids get med clearance ect 12/24/2022 Of Thorazine discontinued has not been effective can lower blood pressure and someone already with periods of dehydration strongly would benefit from ECT trial 12/25: continue current mgmt. up briefly today to move rooms. ate 3 meals yesterday, reportedly. hearing tomorrow for ECT. 12/26: staring today, no responses. hearing held today, judgment pending. decrease ativan to 2 mg TID in anticipation of ECT. medical clearance and EKG ordered. 12/26: staring today, no responses. IV access lost, will give IM ativan until IV access regained. awaiting word from court on ECT. 12/27: medically cleared for ECT, court ordered ECT. start ECT tomorrow. case d/w david in detail. taper ativan to 4 mg today, may need flumazenil tomorrow prior to ECT. continue ativan taper over w/e. 12/29: ECT #1 completed, clear improvement in mental status and insight. continue ativan taper. ECT #2 on sunday. Reason for continued inpatient stay Substantial Risk for: inability to function and rapid decompensation Time Spent With Patient Time: Total time managing care of this patient today __25__ minutes.
[2022-12-29] MEDS: LORazepam 2 MG/ML VIAL 1 MG IM (17:01)
[2022-12-30 09:36] VITALS: BP 101/59; PULSE 87; RESP 16; TEMP 37.2; O2SAT 94
--- NOTE | 2022-12-30 09:51 | PC.NURSE ---
pt reports I won't take the pills, they normally just give me shot .
[2022-12-30] MEDS: LORazepam 2 MG/ML VIAL 1 MG IM ×3 (10:12→22:45)
--- NOTE | 2022-12-30 12:23 | P.PNPSI_ITS ---
Subjective Subjective Date of Service: 12/30/22 Reason For Visit: catatonia Interim History: awake, interactive. terse. CHINO encouraged pt to take meds PO, explained reason for ativan. discussed ECT briefly. pt remains depressed with PMR. per staff, took meds PO at noon. then refused meds after, got IMs of ativan last night and this morning. yesterday reza was staring and unresponsive again. Mental Status Exam Mental Status Exam Narrative: Very poor self-care. lying in bed but awake and responding to verbal prompts. cooperative. no SI/HI/AVH expressed. Insight and judgment appears limited. Diagnostics Vital Signs (24Hr): Vital Signs - 24 hr 12/29/22 14:32 12/29/22 22:10 12/30/22 09:36 Temperature 98.6 F 98.9 F Pulse Rate 76 87 Respiratory Rate 18 16 16 Blood Pressure 112/65 101/59 L Pulse Oximetry 96 94 Oxygen Delivery Method Room Air Room Air BMI result Body Mass Index 23.1 Labs 12/23/22 17:51 Medications Medications Current Medications Acetaminophen (Acetaminophen 325 Mg Tablet) 650 mg PO Q6H PRN PRN Reason: Headache/Pain Mild Scale (1-3) Last Admin: 12/29/22 12:15 Dose: 650 mg Acetaminophen (Acetaminophen 325 Mg Tablet) 650 mg PO ONCE PRN PRN Reason: Pain, Mild (Pain Scale 1-3) Al Hydroxide/Mg Hydroxide (Magnesium Hydrox/Alum Hydrox 30 Ml Oral.Susp) 30 ml PO Q6H PRN PRN Reason: Heartburn/Nausea Artificial Tears (Artificial Tears 15 Ml Drops) 2 drop EYE-BOTH Q4H PRN PRN Reason: Dry Eyes Last Admin: 12/02/22 14:19 Dose: 2 drop Benzocaine (Throat Lozenge, Medicated Lozenge) 1 lozenge MUCOUS MEM Q2H PRN PRN Reason: Sore Throat Last Admin: 12/29/22 12:23 Dose: 1 lozenge Chlorpromazine HCl (Chlorpromazine Hcl 25 Mg Tablet) 25 mg PO BEDTIME [facility] Last Admin: 12/29/22 22:11 Dose: Not Given Fluoxetine HCl (Fluoxetine Hcl 20 Mg Capsule) 20 mg PO DAILY [facility] Last Admin: 12/30/22 09:59 Dose: Not Given Hydroxyzine HCl (Hydroxyzine Hcl 25 Mg Tablet) 25 mg PO Q6H PRN PRN Reason: Anxiety Lorazepam (Lorazepam 1 Mg Tablet) 1 mg PO TID [facility] Stop: 12/30/22 21:01 Last Admin: 12/30/22 10:16 Dose: Not Given Lorazepam (Lorazepam 1 Mg Tablet) 1 mg PO BID@0900,1700 [facility] Stop: 12/31/22 17:01 Lorazepam (Lorazepam 0.5 Mg Tablet) 0.5 mg PO BID [facility] Stop: 01/02/23 09:01 Lorazepam (Lorazepam 2 Mg/Ml Vial) 1 mg IM BID PRN PRN Reason: refusal of PO dosing Last Admin: 12/30/22 10:12 Dose: 1 mg Magnesium Hydroxide (Milk Of Magnesia 30 Ml Oral.Susp) 30 ml PO DAILY PRN PRN Reason: Constipation Ondansetron HCl (Ondansetron Hcl 4 Mg/2 Ml Vial) 4 mg IVPUSH ONCE PRN PRN Reason: Nausea and Vomiting Trazodone HCl (Trazodone Hcl 50 Mg Tablet) 50 mg PO BEDTIME PRN PRN Reason: Insomnia Allergies Allergies Allergy/AdvReac Type Severity Reaction Status Date / Time No Known Allergies Allergy Verified 10/31/22 14:47 Assessment & Plan Assessment & Plan (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 11/04: pt refusing meds and not taking anything PO. nevertheless appears slightly improved from yesterday, more verbal with less latency of response. advised to take meds and fluids. 11/05: ate and drank some last night. refusing meds. no longer grossly catatonic. continue current mgmt. 11/06: no PO intake in past 24H. refusing meds. parnell warning, 3-day up . 11/07: no food, had some water last night. recheck BMP. completed commitment paperwork. refusing meds. 11/08: denies eating or drinking but yesterday's breakfast tray was empty on return. commitment filed. refusing meds. 11/09: continues without PO intake, not attending to ADLs. refusing meds. hearing scheduled for next . labs from yesterday not indicative of concerning dehydration. 11/10 continue tx. more talkative, although guarded. No overt delusional content reported. denies SI/HI. 11/11: will order CMP for tomorrow morning given uncertainty ref PO intake 11/13: increase in BUN and Cr due to dehydration 11/14: continue tx. refuses medications but unable to provide explanation as to why not show understanding in terms of effects of decrease oral intake on renal function. 11/15: unchanged from last week. intermittent meals, BUN mildly elevated. court tomorrow. 11/16: court deferred for BEHZAD. no change in presentation. place on 1:1 for obse rvation of PO intake. lying all day in bed, PMR, with shades drawn, for a darkened room. refusing medications. 11/17: DC olanzapine. offer SSRI. eating and drinking this morning, after having been put on 1:1. continue current mgmt. commitment hearing likely next . 11/18: refusing to look at or speak with MD. clearly ate and drank more yesterday, up and out of room more. nevertheless, spends vast majority of his time lying in bed in the dark. refusing meds. 11/19: ate more yesterday and last night. DC 1:1. appearing catatonic today, no eye blink staring at ceiling not responding. 11/20: moderate PO intake yesterday. appearing more catatonic today. continue to offer meds. 11/21: catatonic. no report on sleep or PO intake as pt is off 1:1. continue to offer meds. 11/22: catatonic. labs reassuring. court tomorrow. 11/23: catatonic. committed and ordered meds in court. 11/24: start ativan 2 mg TID with IM back-up for catatonia. plan to start neuroleptics and anti-depressants once catatonia improved. 11/25: decrease ativan to 1mg tid as he had no response to 2 mg and might be experiencing sedation from it 11/26: More alert on lower ativan dose but remains non-verbal and lying in bed 11/27 increase ativan back to 2mg po TID back up IM. 11/28: T/C gaining IV access to facilitate delivery of ativan; plan to increase to QID dosing. remains catatonic. case d/w nursing administration and medical stenographeroccupational therapy co director. 11/29: gain IV access today, start ativan 2 mg IV QID. was out of bed, eating and speaking yesterday evening. 11/30: 1:1 as he removed IV access, apparently. was up in kitchen getting food on evening shift. continue current mgmt. 12/01: up twice in the past 24H, ate some, swore that lights in his room had been turned on. T/C adding valium 2 mg TID IV (per court order, maximum of 8 mg ativan may be given per day) and/or antipsychotic to regimen. case D/W david. 12/02: Check comprehensive metabolic labs in AM. Continue current management. 12/03: Improved post IM dose of Zyprexa last night. Ate better. More communicative. Continue current plan of care. 12/04: some improvement over w/e. increase IM zyprexa t HS to 5 mg each. continue current mgmt. 12/05: continue current mgmt. up several times yesterday, had conversation with reza hilton, observed eating dinner. 12/06: less active yesterday. did not receive IM zyprexa last night. continue current mgmt. 12/07: received zyprexa IM last night. up for breakfast this morning, exchanged some words with MD for first time in weeks. indicated he has a depressed mood. not opposed to anti-depressant. will start prozac liquid daily. 12/08: lying in bed, not responsive. several interactions with staff yesterday, limited and often non-verbal. refused PO prozac. continue current mgmt. 12/09: still catatonic. 12/10 still catatonic 12/11/22 Patient intermittently responsive often refusing p.o. meds may require ECT 12/12/2022 Patient remains mostly electively mute intermittently catatonic with some periods of verbal discourse 12/13/22 more verbal hx of recurrent depression still gets iv ativan refuses po meds 12 14 22 Continue Ativan and intravenous is encouraged fluoxetine continue olanzapine 5 mg patient does not appear to be psychotic would encourage ECT 12/15/2022 Continue plan of care labs reviewed sodium creatinine within normal limits 12/16: Continue current regimen and plans. Switch Zyprexa to a.m. use. 12/17: Continue current regimen and plans. Decrease Ativan by 2 mg and increase Zyprexa by 10 mg 12/18: continue current regimen. no change in catatonic presentation. 12/19: return ativan to 2 mg QID and zyprexa to 10 mg QHS only. 12/20: due to possibility of akathisia from zyprexa, will try lower potency anti- psychotic, thorazine. DC zyprexa and start thorazine 100 mg PO QHS with 50 mg IM if refuses PO. 12/21: received thorazine last NOC, IM. ate dinner and spoke with EMERY cobb. generally no improvement, no change in presentation. 12/22: awake briefly this morning, endorsing depression. vague, unable to state preference for Tx. continue current mgmt. hearing scheduled for next sunday re ECT. 12/23 ck labs consider iv fluids get med clearance ect 12/24/2022 Of Thorazine discontinued has not been effective can lower blood pressure and someone already with periods of dehydration strongly would benefit from ECT trial 12/25: continue current mgmt. up briefly today to move rooms. ate 3 meals yesterday, reportedly. hearing tomorrow for ECT. 12/26: staring today, no responses. hearing held today, judgment pending. decrease ativan to 2 mg TID in anticipation of ECT. medical clearance and EKG ordered. 12/26: staring today, no responses. IV access lost, will give IM ativan until IV access regained. awaiting word from court on ECT. 12/27: medically cleared for ECT, court ordered ECT. start ECT tomorrow. case d/w david in detail. taper ativan to 4 mg today, may need flumazenil tomorrow prior to ECT. continue ativan taper over w/e. 12/29: ECT #1 completed, clear improvement in mental status and insight. continue ativan taper. ECT #2 on sunday. 12/30: took PO meds yesterday morning after ECT, refusing since. continue current mgmt. Reason for continued inpatient stay Substantial Risk for: inability to function and rapid decompensation Time Spent With Patient Time: Total time managing care of this patient today __25__ minutes.
[2022-12-30 22:25] VITALS: BP 112/69; PULSE 62; RESP 16; TEMP 36.1; O2SAT 94
[2022-12-31 08:08] VITALS: BP 102/62; PULSE 73; RESP 16; TEMP 36.9; O2SAT 94
[2022-12-31] MEDS: LORazepam 2 MG/ML VIAL 1 MG IM ×2 (08:29→17:19)
--- NOTE | 2022-12-31 08:32 | PC.NURSE ---
pt refused scheduled 9am Ativan 1mg PO and requested IM instead. Scheduled 9am Prozac also refused I don't like to take pills . 1mg Ativan IM administered per [place] order.
--- NOTE | 2022-12-31 12:57 | P.PNPSI_ITS ---
Subjective Subjective Date of Service: 12/31/22 Reason For Visit: catatonia Interim History: awake, conversant. educated re ativan taper, encouraged to take meds PO. no questions re ECT. per staff, did not eat anything yesterday. more verbal eves. denies all psych Sx. unclear how much he is sleeping. refusing PO meds, getting IMs only. Mental Status Exam Mental Status Exam Narrative: Very poor self-care. lying in bed but awake and responding to verbal prompts. cooperative. no SI/HI/AVH expressed. Insight and judgment appears limited. Diagnostics Vital Signs (24Hr): Vital Signs - 24 hr 12/30/22 22:25 12/31/22 08:08 Temperature 96.9 F 98.4 F Pulse Rate 62 73 Respiratory Rate 16 16 Blood Pressure 112/69 102/62 Pulse Oximetry 94 94 Oxygen Delivery Method Room Air Room Air BMI result Body Mass Index 23.1 Labs 12/23/22 17:51 Medications Medications Current Medications Acetaminophen (Acetaminophen 325 Mg Tablet) 650 mg PO Q6H PRN PRN Reason: Headache/Pain Mild Scale (1-3) Last Admin: 12/29/22 12:15 Dose: 650 mg Acetaminophen (Acetaminophen 325 Mg Tablet) 650 mg PO ONCE PRN PRN Reason: Pain, Mild (Pain Scale 1-3) Al Hydroxide/Mg Hydroxide (Magnesium Hydrox/Alum Hydrox 30 Ml Oral.Susp) 30 ml PO Q6H PRN PRN Reason: Heartburn/Nausea Artificial Tears (Artificial Tears 15 Ml Drops) 2 drop EYE-BOTH Q4H PRN PRN Reason: Dry Eyes Last Admin: 12/02/22 14:19 Dose: 2 drop Benzocaine (Throat Lozenge, Medicated Lozenge) 1 lozenge MUCOUS MEM Q2H PRN PRN Reason: Sore Throat Last Admin: 12/29/22 12:23 Dose: 1 lozenge Fluoxetine HCl (Fluoxetine Hcl 20 Mg Capsule) 20 mg PO DAILY [facility] Last Admin: 12/31/22 08:32 Dose: Not Given Hydroxyzine HCl (Hydroxyzine Hcl 25 Mg Tablet) 25 mg PO Q6H PRN PRN Reason: Anxiety Lorazepam (Lorazepam 1 Mg Tablet) 1 mg PO BID@0900,1700 [facility] Stop: 12/31/22 17:01 Last Admin: 12/31/22 08:36 Dose: Not Given Lorazepam (Lorazepam 0.5 Mg Tablet) 0.5 mg PO BID [facility] Stop: 01/02/23 09:01 Lorazepam (Lorazepam 2 Mg/Ml Vial) 1 mg IM TID PRN PRN Reason: refusal of PO dosing Last Admin: 12/31/22 08:29 Dose: 1 mg Magnesium Hydroxide (Milk Of Magnesia 30 Ml Oral.Susp) 30 ml PO DAILY PRN PRN Reason: Constipation Ondansetron HCl (Ondansetron Hcl 4 Mg/2 Ml Vial) 4 mg IVPUSH ONCE PRN PRN Reason: Nausea and Vomiting Trazodone HCl (Trazodone Hcl 50 Mg Tablet) 50 mg PO BEDTIME PRN PRN Reason: Insomnia Allergies Allergies Allergy/AdvReac Type Severity Reaction Status Date / Time No Known Allergies Allergy Verified 10/31/22 14:47 Assessment & Plan Assessment & Plan (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 11/04: pt refusing meds and not taking anything PO. nevertheless appears slightly improved from yesterday, more verbal with less latency of response. advised to take meds and fluids. 11/05: ate and drank some last night. refusing meds. no longer grossly catatonic. continue current mgmt. 11/06: no PO intake in past 24H. refusing meds. parnell warning, 3-day up . 11/07: no food, had some water last night. recheck BMP. completed commitment paperwork. refusing meds. 11/08: denies eating or drinking but yesterday's breakfast tray was empty on return. commitment filed. refusing meds. 11/09: continues without PO intake, not attending to ADLs. refusing meds. hearing scheduled for next . labs from yesterday not indicative of concerning dehydration. 11/10 continue tx. more talkative, although guarded. No overt delusional content reported. denies SI/HI. 11/11: will order CMP for tomorrow morning given uncertainty ref PO intake 11/13: increase in BUN and Cr due to dehydration 11/14: continue tx. refuses medications but unable to provide explanation as to why not show understanding in terms of effects of decrease oral intake on renal function. 11/15: unchanged from last week. intermittent meals, BUN mildly elevated. court tomorrow. 11/16: court deferred for BEHZAD. no change in presentation. place on 1:1 for o bservation of PO intake. lying all day in bed, PMR, with shades drawn, for a darkened room. refusing medications. 11/17: DC olanzapine. offer SSRI. eating and drinking this morning, after having been put on 1:1. continue current mgmt. commitment hearing likely next . 11/18: refusing to look at or speak with MD. clearly ate and drank more yesterday, up and out of room more. nevertheless, spends vast majority of his time lying in bed in the dark. refusing meds. 11/19: ate more yesterday and last night. DC 1:1. appearing catatonic today, no eye blink staring at ceiling not responding. 11/20: moderate PO intake yesterday. appearing more catatonic today. continue to offer meds. 11/21: catatonic. no report on sleep or PO intake as pt is off 1:1. continue to offer meds. 11/22: catatonic. labs reassuring. court tomorrow. 11/23: catatonic. committed and ordered meds in court. 11/24: start ativan 2 mg TID with IM back-up for catatonia. plan to start neuroleptics and anti-depressants once catatonia improved. 11/25: decrease ativan to 1mg tid as he had no response to 2 mg and might be experiencing sedation from it 11/26: More alert on lower ativan dose but remains non-verbal and lying in bed 11/27 increase ativan back to 2mg po TID back up IM. 11/28: T/C gaining IV access to facilitate delivery of ativan; plan to increase to QID dosing. remains catatonic. case d/w nursing administration and medical dermatologistdirector of food and nutrition. 11/29: gain IV access today, start ativan 2 mg IV QID. was out of bed, eating and speaking yesterday evening. 11/30: 1:1 as he removed IV access, apparently. was up in kitchen getting food on evening shift. continue current mgmt. 12/01: up twice in the past 24H, ate some, swore that lights in his room had been turned on. T/C adding valium 2 mg TID IV (per court order, maximum of 8 mg ativan may be given per day) and/or antipsychotic to regimen. case D/W david. 12/02: Check comprehensive metabolic labs in AM. Continue current management. 12/03: Improved post IM dose of Zyprexa last night. Ate better. More communicative. Continue current plan of care. 12/04: some improvement over w/e. increase IM zyprexa t HS to 5 mg each. con kapil current mgmt. 12/05: continue current mgmt. up several times yesterday, had conversation with reza nurse, observed eating dinner. 12/06: less active yesterday. did not receive IM zyprexa last night. continue current mgmt. 12/07: received zyprexa IM last night. up for breakfast this morning, exchanged some words with MD for first time in weeks. indicated he has a depressed mood. not opposed to anti-depressant. will start prozac liquid daily. 12/08: lying in bed, not responsive. several interactions with staff yesterday, limited and often non-verbal. refused PO prozac. continue current mgmt. 12/09: still catatonic. 12/10 still catatonic 12/11/22 Patient intermittently responsive often refusing p.o. meds may require ECT 12/12/2022 Patient remains mostly electively mute intermittently catatonic with some periods of verbal discourse 12/13/22 more verbal hx of recurrent depression still gets iv ativan refuses po meds 12 14 22 Continue Ativan and intravenous is encouraged fluoxetine continue olanzapine 5 mg patient does not appear to be psychotic would encourage ECT 12/15/2022 Continue plan of care labs reviewed sodium creatinine within normal limits 12/16: Continue current regimen and plans. Switch Zyprexa to a.m. use. 12/17: Continue current regimen and plans. Decrease Ativan by 2 mg and increase Zyprexa by 10 mg 12/18: continue current regimen. no change in catatonic presentation. 12/19: return ativan to 2 mg QID and zyprexa to 10 mg QHS only. 12/20: due to possibility of akathisia from zyprexa, will try lower potency anti- psychotic, thorazine. DC zyprexa and start thorazine 100 mg PO QHS with 50 mg IM if refuses PO. 12/21: received thorazine last NOC, IM. ate dinner and spoke with EMERY cobb. generally no improvement, no change in presentation. 12/22: awake briefly this morning, endorsing depression. vague, unable to state preference for Tx. continue current mgmt. hearing scheduled for next sunday re ECT. 12/23 ck labs consider iv fluids get med clearance ect 12/24/2022 Of Thorazine discontinued has not been effective can lower blood pressure and someone already with periods of dehydration strongly would benefit from ECT trial 12/25: continue current mgmt. up briefly today to move rooms. ate 3 meals yesterday, reportedly. hearing tomorrow for ECT. 12/26: staring today, no responses. hearing held today, judgment pending. decrease ativan to 2 mg TID in anticipation of ECT. medical clearance and EKG ordered. 12/26: staring today, no responses. IV access lost, will give IM ativan until IV access regained. awaiting word from court on ECT. 12/27: medically cleared for ECT, court ordered ECT. start ECT tomorrow. case d/w david in detail. taper ativan to 4 mg today, may need flumazenil tomorrow prior to ECT. continue ativan taper over w/e. 12/29: ECT #1 completed, clear improvement in mental status and insight. continue ativan taper. ECT #2 on sunday. 12/30: took PO meds yesterday morning after ECT, refusing since. continue current mgmt. 12/31: continue ativan taper. awake and verbal today. not eating or taking meds PO. ECT #2 tomorrow. Reason for continued inpatient stay Substantial Risk for: harm to self, inability to function and rapid decompensation Time Spent With Patient Time: Total time managing care of this patient today ____ minutes.
[2022-12-31 20:05] VITALS: BP 122/60; PULSE 76; RESP 14; TEMP 36.6; O2SAT 93
[2023-01-01] VITALS (10 sets, daily range): BP systolic 92–140; BP diastolic 56–90; PULSE 55–77; RESP 14–18; TEMP 36.4–37.1; O2SAT 95–99
--- NOTE | 2023-01-01 06:58 | P.CONAN_ITS ---
[facility] Active Problems Active Problems: All Active Problems (Updated 11/11/22 @ 00:11 by Ez Morales) Catatonia (Acute) Cocaine use disorder, mild, in early remission (Acute) Mood disorder (Acute) Cocaine use disorder (Acute) Depression (Acute) Anorexia (Acute) Past Medical History Medical History Cocaine use disorder Family History Family history of problems with anesthesia: No Surgical History History of Problems with Anesthesia: No Social History Social History Household Members: None Housing: Other Housing Other:: TSS Unable to assess alcohol history related to: Refusing to respond Patient Tobacco Use Status: Never used Tobacco Second Hand Smoke Exposure: No Use of substances other than those prescribed or required for medical reasons: No Currently Displaying Signs/Symptoms of Drug Intoxication Withdrawal: No Have you been hit, kicked, punched, or otherwise hurt by someone within the past year? If so, by whom?: No Do you feel safe in your current relationship?: No Current Relationship Is there a partner from a previous relationship who is making you feel unsafe now?: No Are you made to feel afraid or neglected: No Advance Directives: No Advance Directives Information Provided: Yes Advance Directives on File: No Do you have thoughts of harming others: None Do you have a plan to hurt others: No Plan Recently lost weight without trying: Unsure Nutrition Risks: No Nutritional Risk service: No Sexual orientation: Decline to Answer Meds Allergies Allergy/AdvReac Type Severity Reaction Status Date / Time No Known Allergies Allergy Verified 10/31/22 14:47 Active Medications: Current Medications Acetaminophen (Acetaminophen 325 Mg Tablet) 650 mg PO Q6H PRN PRN Reason: Headache/Pain Mild Scale (1-3) Last Admin: 12/29/22 12:15 Dose: 650 mg Acetaminophen (Acetaminophen 325 Mg Tablet) 650 mg PO ONCE PRN PRN Reason: Pain, Mild (Pain Scale 1-3) Al Hydroxide/Mg Hydroxide (Magnesium Hydrox/Alum Hydrox 30 Ml Oral.Susp) 30 ml PO Q6H PRN PRN Reason: Heartburn/Nausea Artificial Tears (Artificial Tears 15 Ml Drops) 2 drop EYE-BOTH Q4H PRN PRN Reason: Dry Eyes Last Admin: 12/02/22 14:19 Dose: 2 drop Benzocaine (Throat Lozenge, Medicated Lozenge) 1 lozenge MUCOUS MEM Q2H PRN PRN Reason: Sore Throat Last Admin: 12/29/22 12:23 Dose: 1 lozenge Fluoxetine HCl (Fluoxetine Hcl 20 Mg Capsule) 20 mg PO DAILY [facility] Last Admin: 12/31/22 08:32 Dose: Not Given Hydroxyzine HCl (Hydroxyzine Hcl 25 Mg Tablet) 25 mg PO Q6H PRN PRN Reason: Anxiety Lorazepam (Lorazepam 0.5 Mg Tablet) 0.5 mg PO BID [facility] Stop: 01/02/23 09:01 Lorazepam (Lorazepam 2 Mg/Ml Vial) 1 mg IM BID@0900,1700 PRN PRN Reason: refusal of PO dosing Last Admin: 12/31/22 17:19 Dose: 1 mg Magnesium Hydroxide (Milk Of Magnesia 30 Ml Oral.Susp) 30 ml PO DAILY PRN PRN Reason: Constipation Ondansetron HCl (Ondansetron Hcl 4 Mg/2 Ml Vial) 4 mg IVPUSH ONCE PRN PRN Reason: Nausea and Vomiting Trazodone HCl (Trazodone Hcl 50 Mg Tablet) 50 mg PO BEDTIME PRN PRN Reason: Insomnia Home Medications Medication Instructions Recorded Confirmed Last Taken Type No Known Home Meds 10/31/22 11/04/22 Unknown History Exam Exam Date and Time: January 01, 2023 0658 Height,Weight and Vital Signs: Height 6 ft Weight 77.111 kg Last Vital Signs Temp 97.7 F 01/01/23 06:36 Pulse 55 01/01/23 06:36 Resp 16 01/01/23 06:36 BP 113/70 01/01/23 06:36 Pulse Ox 99 01/01/23 06:36 O2 Del Method Room Air 01/01/23 06:36 O2 Flow Rate 2 12/29/22 10:49 Pertinent Lab Results Pertinent Lab Results: Laboratory Tests 11/03/22 11/05/22 11/08/22 15:48 12:58 15:07 Sodium 142 140 Potassium 4.1 D 4.1 Chloride 108 105 Carbon Dioxide 26 28 Anion Gap 12 11 L BUN 23 H 15 Creatinine 0.73 0.83 0.72 Estim Creat Clear Calc TNP TNP TNP Estimated GFR > 60 > 60 > 60 Random Glucose 97 95 Calcium 9.1 9.7 D Total Bilirubin AST ALT Alkaline Phosphatase Total Protein Albumin 11/13/22 11/16/22 11/22/22 08:00 08:11 11:55 Sodium 140 138 137 Potassium 4.8 4.9 4.5 Chloride 103 106 106 Carbon Dioxide 22 22 25 Anion Gap 20 15 11 L BUN 25 H 16 16 Creatinine 1.07 0.97 0.86 Estim Creat Clear Calc TNP TNP TNP Estimated GFR > 60 > 60 > 60 Random Glucose 73 89 93 Calcium 10.0 9.6 9.9 Total Bilirubin 0.9 0.9 AST 21 22 ALT 16 15 Alkaline Phosphatase 62 59 Total Protein 7.1 6.8 Albumin 4.0 3.6 12/03/22 12/15/22 12/23/22 07:45 09:53 17:51 Sodium 139 139 139 Potassium 4.8 4.3 4.2 Chloride 107 106 104 Carbon Dioxide 24 23 23 Anion Gap 13 14 16 BUN 13 11 11 Creatinine 0.73 0.74 0.77 Estim Creat Clear Calc TNP TNP TNP Estimated GFR > 60 > 60 > 60 Random Glucose 103 86 79 Calcium 9.3 D 9.3 9.8 Total Bilirubin 0.5 0.7 0.8 AST 25 18 24 ALT 20 16 16 Alkaline Phosphatase 47 55 68 Total Protein 6.4 L 6.5 7.1 Albumin 3.5 3.6 4.0 Airway Mallampati Class: II TM Dist: >3cm Neck ROM: Full Heart: rrr Lungs: cta Assessment and Plan Assessment Anesthesia Assessment: Anesthesia Plan Discussed and Chart Reviewed Final Anesthetic Review Family History of Problems with Anesthesia: No History of Problems with Anesthesia: No NPO: Yes ASA Class: III Final Preanesthetic Review: No Changes in Pt Med Stat, Meds/Allgs Chart Reviewed and Consent Obtained/Reviewed Patient Risk: Intermediate Procedure Risk: Intermediate Anesthetic Plan Anesthetic Plan: GA Disposition: Standard PACU
--- NOTE | 2023-01-01 10:02 | PC.NURSE ---
Per IR, if having difficulty with IV placement, call IR at [phone] for ultrasound guided placement.
--- NOTE | 2023-01-01 11:35 | PC.NURSE ---
This RN placed a #22G angio to the R AC using ultrasound. Pt ray procedure well.
--- NOTE | 2023-01-01 12:24 | HO.PSYCHPN ---
Subjective Subjective Date of Service: 01/01/23 Reason For Visit: catatonia Interim History: seen in his room, awake and alert. brief conversation about returning to do ECT once an IV is inserted. pt says OK to most things MD says, unconvincingly. per staff, isolative, poor PO intake. refusing PO ativan. refusing 1:1. safe. Mental Status Exam Mental Status Exam Narrative: Very poor self-care. lying in bed but awake and responding to verbal prompts. cooperative. no SI/HI/AVH expressed. Insight and judgment appears limited. Diagnostics Vital Signs (24Hr): Vital Signs - 24 hr 12/31/22 20:05 01/01/23 05:46 01/01/23 05:46 Temperature 98 F 97.6 F 97.6 F Pulse Rate 76 70 70 Respiratory Rate 14 14 14 Blood Pressure 122/60 103/56 L 103/56 L Pulse Oximetry 93 98 98 Oxygen Delivery Method Room Air Room Air 01/01/23 06:36 01/01/23 08:47 Temperature 97.7 F 97.9 F Pulse Rate 55 55 Respiratory Rate 16 14 Blood Pressure 113/70 92/57 L Pulse Oximetry 99 98 Oxygen Delivery Method Room Air Room Air BMI result Body Mass Index 23.1 Labs 12/23/22 17:51 Medications Medications Current Medications Acetaminophen (Acetaminophen 325 Mg Tablet) 650 mg PO Q6H PRN PRN Reason: Headache/Pain Mild Scale (1-3) Last Admin: 12/29/22 12:15 Dose: 650 mg Acetaminophen (Acetaminophen 325 Mg Tablet) 650 mg PO ONCE PRN PRN Reason: Pain, Mild (Pain Scale 1-3) Al Hydroxide/Mg Hydroxide (Magnesium Hydrox/Alum Hydrox 30 Ml Oral.Susp) 30 ml PO Q6H PRN PRN Reason: Heartburn/Nausea Artificial Tears (Artificial Tears 15 Ml Drops) 2 drop EYE-BOTH Q4H PRN PRN Reason: Dry Eyes Last Admin: 12/02/22 14:19 Dose: 2 drop Benzocaine (Throat Lozenge, Medicated Lozenge) 1 lozenge MUCOUS MEM Q2H PRN PRN Reason: Sore Throat Last Admin: 12/29/22 12:23 Dose: 1 lozenge Fluoxetine HCl (Fluoxetine Hcl 20 Mg Capsule) 20 mg PO DAILY GABRIEL Last Admin: 01/01/23 10:08 Dose: Not Given Hydroxyzine HCl (Hydroxyzine Hcl 25 Mg Tablet) 25 mg PO Q6H PRN PRN Reason: Anxiety Lactated Ringer's (Lr) 1,000 mls @ 50 mls/hr IVCONT .Q20H GABRIEL Lorazepam (Lorazepam 0.5 Mg Tablet) 0.5 mg PO BID GABRIEL Stop: 01/02/23 09:01 Last Admin: 01/01/23 11:08 Dose: Not Given Lorazepam (Lorazepam 2 Mg/Ml Vial) 1 mg IM BID@0900,1700 PRN PRN Reason: refusal of PO dosing Last Admin: 12/31/22 17:19 Dose: 1 mg Magnesium Hydroxide (Milk Of Magnesia 30 Ml Oral.Susp) 30 ml PO DAILY PRN PRN Reason: Constipation Ondansetron HCl (Ondansetron Hcl 4 Mg/2 Ml Vial) 4 mg IVPUSH ONCE PRN PRN Reason: Nausea and Vomiting Trazodone HCl (Trazodone Hcl 50 Mg Tablet) 50 mg PO BEDTIME PRN PRN Reason: Insomnia Allergies Allergies Allergy/AdvReac Type Severity Reaction Status Date / Time No Known Allergies Allergy Verified 10/31/22 14:47 Assessment & Plan Assessment & Plan (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 11/04: pt refusing meds and not taking anything PO. nevertheless appears slightly improved from yesterday, more verbal with less latency of response. advised to take meds and fluids. 11/05: ate and drank some last night. refusing meds. no longer grossly catatonic. continue current mgmt. 11/06: no PO intake in past 24H. refusing meds. parnell warning, 3-day up . 11/07: no food, had some water last night. recheck BMP. completed commitment paperwork. refusing meds. 11/08: denies eating or drinking but yesterday's breakfast tray was empty on return. commitment filed. refusing meds. 11/09: continues without PO intake, not attending to ADLs. refusing meds. hearing scheduled for next . labs from yesterday not indicative of concerning dehydration. 11/10 continue tx. more talkative, although guarded. No overt delusional content reported. denies SI/HI. 11/11: will order CMP for tomorrow morning given uncertainty ref PO intake 11/13: increase in BUN and Cr due to dehydration 11/14: continue tx. refuses medications but unable to provide explanation as to why not show understanding in terms of effects of decrease oral intake on renal function. 11/15: unchanged from last week. intermittent meals, BUN mildly elevated. court tomorrow. 11/16: court deferred for BEHZAD. no change in presentation. place on 1:1 for observation of PO intake. lying all day in bed, PMR, with shades drawn, for a darkened room. refusing medications. 11/17: DC olanzapine. offer SSRI. eating and drinking this morning, after having been put on 1:1. continue current mgmt. commitment hearing likely next . 11/18: refusing to look at or speak with MD. clearly ate and drank more yesterday, up and out of room more. nevertheless, spends vast majority of his time lying in bed in the dark. refusing meds. 11/19: ate more yesterday and last night. DC 1:1. appearing catatonic today, no eye blink staring at ceiling not responding. 11/20: moderate PO intake yesterday. appearing more catatonic today. continue to offer meds. 11/21: catatonic. no report on sleep or PO intake as pt is off 1:1. continue to offer meds. 11/22: catatonic. labs reassuring. court tomorrow. 11/23: catatonic. committed and ordered meds in court. 11/24: start ativan 2 mg TID with IM back-up for catatonia. plan to start neuroleptics and anti-depressants once catatonia improved. 11/25: decrease ativan to 1mg tid as he had no response to 2 mg and might be experiencing sedation from it 11/26: More alert on lower ativan dose but remains non-verbal and lying in bed 11/27 increase ativan back to 2mg po TID back up IM. 11/28: T/C gaining IV access to facilitate delivery of ativan; plan to increase to QID dosing. remains catatonic. case d/w nursing administration and medical psychotherapistclassification and treatment director. 11/29: gain IV access today, start ativan 2 mg IV QID. was out of bed, eating and speaking yesterday evening. 11/30: 1:1 as he removed IV access, apparently. was up in kitchen getting food on evening shift. continue current mgmt. 12/01: up twice in the past 24H, ate some, swore that lights in his room had been turned on. T/C adding valium 2 mg TID IV (per court order, maximum of 8 mg ativan may be given per day) and/or antipsychotic to regimen. case D/W david. 12/02: Check comprehensive metabolic labs in AM. Continue current management. 12/03: Improved post IM dose of Zyprexa last night. Ate better. More communicative. Continue current plan of care. 12/04: some improvement over w/e. increase IM zyprexa t HS to 5 mg each. continue current mgmt. 12/05: continue current mgmt. up several times yesterday, had conversation with reza nurse, observed eating dinner. 12/06: less active yesterday. did not receive IM zyprexa last night. continue current mgmt. 12/07: received zyprexa IM last night. up for breakfast this morning, exchanged some words with MD for first time in weeks. indicated he has a depressed mood. not opposed to anti-depressant. will start prozac liquid daily. 12/08: lying in bed, not responsive. several interactions with staff yesterday, limited and often non-verbal. refused PO prozac. continue current mgmt. 12/09: still catatonic. 12/10 still catatonic 12/11/22 Patient intermittently responsive often refusing p.o. meds may require ECT 12/12/2022 Patient remains mostly electively mute intermittently catatonic with some periods of verbal discourse 12/13/22 more verbal hx of recurrent depression still gets iv ativan refuses po meds 12 14 22 Continue Ativan and intravenous is encouraged fluoxetine continue olanzapine 5 mg patient does not appear to be psychotic would encourage ECT 12/15/2022 Continue plan of care labs reviewed sodium creatinine within normal limits 12/16: Continue current regimen and plans. Switch Zyprexa to a.m. use. 12/17: Continue current regimen and plans. Decrease Ativan by 2 mg and increase Zyprexa by 10 mg 12/18: continue current regimen. no change in catatonic presentation. 12/19: return ativan to 2 mg QID and zyprexa to 10 mg QHS only. 12/20: due to possibility of akathisia from zyprexa, will try lower potency anti-psychotic, thorazine. DC zyprexa and start thorazine 100 mg PO QHS with 50 mg IM if refuses PO. 12/21: received thorazine last NOC, IM. ate dinner and spoke with EMERY cobb. generally no improvement, no change in presentation. 12/22: awake briefly this morning, endorsing depression. vague, unable to state preference for Tx. continue current mgmt. hearing scheduled for next sunday re ECT. 12/23 ck labs consider iv fluids get med clearance ect 12/24/2022 Of Thorazine discontinued has not been effective can lower blood pressure and someone already with periods of dehydration strongly would benefit from ECT trial 12/25: continue current mgmt. up briefly today to move rooms. ate 3 meals yesterday, reportedly. hearing tomorrow for ECT. 12/26: staring today, no responses. hearing held today, judgment pending. decrease ativan to 2 mg TID in anticipation of ECT. medical clearance and EKG ordered. 12/26: staring today, no responses. IV access lost, will give IM ativan until IV access regained. awaiting word from court on ECT. 12/27: medically cleared for ECT, court ordered ECT. start ECT tomorrow. case d/w david in detail. taper ativan to 4 mg today, may need flumazenil tomorrow prior to ECT. continue ativan taper over w/e. 12/29: ECT #1 completed, clear improvement in mental status and insight. continue ativan taper. ECT #2 on sunday. 12/30: took PO meds yesterday morning after ECT, refusing since. continue current mgmt. 8/20: continue ativan taper. awake and verbal today. not eating or taking meds PO. ECT #2 tomorrow. 01/01: missed morning ECT due to inability to gain IV access. U/S guided IV inserted, will go for anoon ECT. PMR, inert, lying in bed; awake, however, and able to exchange a few words. Reason for continued inpatient stay Substantial Risk for: harm to self, inability to function and rapid decompensation Time Spent With Patient Time: Total time managing care of this patient today _25___ minutes.
--- NOTE | 2023-01-01 13:57 | MHC.SHP ---
Pre-Procedural Eval Section A Date of Service: 01/01/23 The patient is an INPATIENT: Yes Changes since office visit: No Cold of Flu in the past 2 weeks, No New Medical Problems, No Changes in Medication and No Patient answered all questions The History & Physical has been completed within 30 days and I have reviewed it.: Yes Section B Chief Complaint: catatonia Allergies: Allergies Allergy/AdvReac Type Severity Reaction Status Date / Time No Known Allergies Allergy Verified 10/31/22 14:47 Plan I have reviewed the history and physical and performed a pertinent physical examination on my patient. No changes have occurred unless specified. Time Spent With Patient Time: Total time managing care of this patient today ____ minutes.
--- NOTE | 2023-01-01 14:12 | HO.ECTPROC ---
ECT Procedure Note Diagnosis/Treatment Date of Service: 01/01/23 Diagnosis: Catatonia Previous ECT Date: 12/29/22 Current Treatment Number: 2 Treatment: Series Interval Clinical Notes: The patient reports mild headache after the first ECT. Today, he was slightly more awake, with some affect, he was not blunted as last week. We had a very difficult time to access an IV so finally, we could get an access in the afternoon. I am ordering a PICC line for easier IV access for this week. Time: Total time managing care of this patient today __30__ minutes. ECT Settings Device: THYMATRON DGx Electrode Placement: Bitemporal Program/Pulse Width: 0.50 Energy Percent: 100 Seizure Duration By EEG (in seconds): 28 By Motor Observation (in seconds): 0 Medications Administration General Anesthetic: Etomidate (16) Muscle Relaxant: Succinylcholine (100) Ancillary Medications Analgesics: Torodol - Pre ECT Anti-emetics: Zofran - Pre ECT Airway Management Airway Management: Bag Mask Ventilation Treatment Recommendations No Changes Recommended: No change Pt Tolerated Procedure w/o Issue: Yes
--- NOTE | 2023-01-01 14:18 | HO.ANESPROP2 ---
[facility] Active Problems Active Problems: All Active Problems (Updated 11/11/22 @ 00:11 by Ez Morales) Catatonia (Acute) Cocaine use disorder, mild, in early remission (Acute) Mood disorder (Acute) Cocaine use disorder (Acute) Depression (Acute) Anorexia (Acute) Past Medical History Medical History Cocaine use disorder Family History Family history of problems with anesthesia: No Surgical History History of Problems with Anesthesia: No Social History Social History Household Members: None Housing: Other Housing Other:: TSS Unable to assess alcohol history related to: Refusing to respond Patient Tobacco Use Status: Never used Tobacco Second Hand Smoke Exposure: No Use of substances other than those prescribed or required for medical reasons: No Currently Displaying Signs/Symptoms of Drug Intoxication Withdrawal: No Have you been hit, kicked, punched, or otherwise hurt by someone within the past year? If so, by whom?: No Do you feel safe in your current relationship?: No Current Relationship Is there a partner from a previous relationship who is making you feel unsafe now?: No Are you made to feel afraid or neglected: No Advance Directives: No Advance Directives Information Provided: Yes Advance Directives on File: No Do you have thoughts of harming others: None Do you have a plan to hurt others: No Plan Recently lost weight without trying: Unsure Nutrition Risks: No Nutritional Risk service: No Sexual orientation: Decline to Answer Meds Allergies Allergy/AdvReac Type Severity Reaction Status Date / Time No Known Allergies Allergy Verified 10/31/22 14:47 Active Medications: Current Medications Acetaminophen (Acetaminophen 325 Mg Tablet) 650 mg PO Q6H PRN PRN Reason: Headache/Pain Mild Scale (1-3) Last Admin: 12/29/22 12:15 Dose: 650 mg Acetaminophen (Acetaminophen 325 Mg Tablet) 650 mg PO ONCE PRN PRN Reason: Pain, Mild (Pain Scale 1-3) Al Hydroxide/Mg Hydroxide (Magnesium Hydrox/Alum Hydrox 30 Ml Oral.Susp) 30 ml PO Q6H PRN PRN Reason: Heartburn/Nausea Artificial Tears (Artificial Tears 15 Ml Drops) 2 drop EYE-BOTH Q4H PRN PRN Reason: Dry Eyes Last Admin: 12/02/22 14:19 Dose: 2 drop Benzocaine (Throat Lozenge, Medicated Lozenge) 1 lozenge MUCOUS MEM Q2H PRN PRN Reason: Sore Throat Last Admin: 12/29/22 12:23 Dose: 1 lozenge Fluoxetine HCl (Fluoxetine Hcl 20 Mg Capsule) 20 mg PO DAILY GABRIEL Last Admin: 01/01/23 10:08 Dose: Not Given Hydroxyzine HCl (Hydroxyzine Hcl 25 Mg Tablet) 25 mg PO Q6H PRN PRN Reason: Anxiety Lactated Ringer's (Lr) 1,000 mls @ 50 mls/hr IVCONT .Q20H GABRIEL Lorazepam (Lorazepam 0.5 Mg Tablet) 0.5 mg PO BID GABRIEL Stop: 01/02/23 09:01 Last Admin: 01/01/23 11:08 Dose: Not Given Lorazepam (Lorazepam 2 Mg/Ml Vial) 1 mg IM BID@0900,1700 PRN PRN Reason: refusal of PO dosing Last Admin: 12/31/22 17:19 Dose: 1 mg Magnesium Hydroxide (Milk Of Magnesia 30 Ml Oral.Susp) 30 ml PO DAILY PRN PRN Reason: Constipation Ondansetron HCl (Ondansetron Hcl 4 Mg/2 Ml Vial) 4 mg IVPUSH ONCE PRN PRN Reason: Nausea and Vomiting Trazodone HCl (Trazodone Hcl 50 Mg Tablet) 50 mg PO BEDTIME PRN PRN Reason: Insomnia Home Medications Medication Instructions Recorded Confirmed Last Taken Type No Known Home Meds 10/31/22 11/04/22 Unknown History Exam Exam Date and Time: January 01, 2023 1418 Height,Weight and Vital Signs: Height 6 ft Weight 77.111 kg Last Vital Signs Temp 97.9 F 01/01/23 08:47 Pulse 55 01/01/23 08:47 Resp 14 01/01/23 08:47 BP 92/57 L 01/01/23 08:47 Pulse Ox 98 01/01/23 08:47 O2 Del Method Room Air 01/01/23 08:47 O2 Flow Rate 2 12/29/22 10:49 Pertinent Lab Results Pertinent Lab Results: Laboratory Tests 11/03/22 11/05/22 11/08/22 15:48 12:58 15:07 Sodium 142 140 Potassium 4.1 D 4.1 Chloride 108 105 Carbon Dioxide 26 28 Anion Gap 12 11 L BUN 23 H 15 Creatinine 0.73 0.83 0.72 Estim Creat Clear Calc TNP TNP TNP Estimated GFR > 60 > 60 > 60 Random Glucose 97 95 Calcium 9.1 9.7 D Total Bilirubin AST ALT Alkaline Phosphatase Total Protein Albumin 11/13/22 11/16/22 11/22/22 08:00 08:11 11:55 Sodium 140 138 137 Potassium 4.8 4.9 4.5 Chloride 103 106 106 Carbon Dioxide 22 22 25 Anion Gap 20 15 11 L BUN 25 H 16 16 Creatinine 1.07 0.97 0.86 Estim Creat Clear Calc TNP TNP TNP Estimated GFR > 60 > 60 > 60 Random Glucose 73 89 93 Calcium 10.0 9.6 9.9 Total Bilirubin 0.9 0.9 AST 21 22 ALT 16 15 Alkaline Phosphatase 62 59 Total Protein 7.1 6.8 Albumin 4.0 3.6 12/03/22 12/15/22 12/23/22 07:45 09:53 17:51 Sodium 139 139 139 Potassium 4.8 4.3 4.2 Chloride 107 106 104 Carbon Dioxide 24 23 23 Anion Gap 13 14 16 BUN 13 11 11 Creatinine 0.73 0.74 0.77 Estim Creat Clear Calc TNP TNP TNP Estimated GFR > 60 > 60 > 60 Random Glucose 103 86 79 Calcium 9.3 D 9.3 9.8 Total Bilirubin 0.5 0.7 0.8 AST 25 18 24 ALT 20 16 16 Alkaline Phosphatase 47 55 68 Total Protein 6.4 L 6.5 7.1 Albumin 3.5 3.6 4.0 Airway Mallampati Class: III TM Dist: >3cm Neck ROM: Full Heart: RRR Lungs: CTA Assessment and Plan Assessment Anesthesia Assessment: Anesthesia Plan Discussed and Chart Reviewed Final Anesthetic Review Family History of Problems with Anesthesia: No History of Problems with Anesthesia: No NPO: Yes ASA Class: II Final Preanesthetic Review: Meds/Allgs Chart Reviewed, Consent Obtained/Reviewed and Anes Risks/Benef Reviewed Patient Risk: Low Procedure Risk: Intermediate Anesthetic Plan Anesthetic Plan: GA Disposition: Standard PACU
[2023-01-02 08:00] VITALS: BP 104/60; PULSE 79; RESP 18; TEMP 36.8; O2SAT 95
--- NOTE | 2023-01-02 09:26 | HO.PSYCHPN ---
Subjective Subjective Date of Service: 01/02/23 Reason For Visit: catatonia Subjective Notes: Section 7 and Section 8 Interim History: The nursing staff reported the patient had been on his bed most of the time but he had been more talkative after the ECT. In the afternoon he was approachable and slightly more reactive with environment. On interview the patient denies new symptoms still he looks dysphoric but with a brighter affect. He denies side effects with the last ECT. He is aware that we are going to have a another session tomorrow. I ordered a midline line for IV access. Today, he had a shower after several weeks that he was unable to take care of himself. Mental Status Exam Mental Status Exam Patient Appearance: Appropriate Patient Orientation: Person and Situation Level of Consciousness: Awake Patient Behavior: Passive Mood Description: Depressed Affect Description: Blunted Ability to Follow Directions: Fair Speech Pattern: Clear and Spontaneous Speech Hallucinations: None Delusions: Not Present Thought Content: positive for [place] and positive for Poverty of Content Judgement: Poor Diagnostics Vital Signs (24Hr): Vital Signs - 24 hr 01/01/23 14:15 01/01/23 14:20 01/01/23 14:25 Temperature 98.7 F Pulse Rate 77 61 60 Respiratory Rate 18 17 17 Blood Pressure 139/90 H 125/78 135/81 Pulse Oximetry 97 97 97 Oxygen Delivery Method Nasal Cannula with ETCO2 Nasal Cannula with ETCO2 Nasal Cannula with ETCO2 Oxygen Flow Rate 2 2 2 01/01/23 14:30 01/01/23 14:44 01/01/23 15:23 Temperature 98.7 F 98 F Pulse Rate 65 68 75 Respiratory Rate 14 16 Blood Pressure 129/76 124/83 140/82 H Pulse Oximetry 97 98 95 Oxygen Delivery Method Room Air Room Air Oxygen Flow Rate 01/01/23 18:00 Temperature 97.8 F Pulse Rate 57 Respiratory Rate Blood Pressure 115/63 Pulse Oximetry 96 Oxygen Delivery Method Room Air Oxygen Flow Rate BMI result Body Mass Index 23.1 Labs 12/23/22 17:51 Medications Medications Current Medications Acetaminophen (Acetaminophen 325 Mg Tablet) 650 mg PO Q6H PRN PRN Reason: Headache/Pain Mild Scale (1-3) Last Admin: 12/29/22 12:15 Dose: 650 mg Acetaminophen (Acetaminophen 325 Mg Tablet) 650 mg PO ONCE PRN PRN Reason: Pain, Mild (Pain Scale 1-3) Al Hydroxide/Mg Hydroxide (Magnesium Hydrox/Alum Hydrox 30 Ml Oral.Susp) 30 ml PO Q6H PRN PRN Reason: Heartburn/Nausea Artificial Tears (Artificial Tears 15 Ml Drops) 2 drop EYE-BOTH Q4H PRN PRN Reason: Dry Eyes Last Admin: 12/02/22 14:19 Dose: 2 drop Benzocaine (Throat Lozenge, Medicated Lozenge) 1 lozenge MUCOUS MEM Q2H PRN PRN Reason: Sore Throat Last Admin: 12/29/22 12:23 Dose: 1 lozenge Fluoxetine HCl (Fluoxetine Hcl 20 Mg Capsule) 20 mg PO DAILY GABRIEL Last Admin: 01/01/23 10:08 Dose: Not Given Hydroxyzine HCl (Hydroxyzine Hcl 25 Mg Tablet) 25 mg PO Q6H PRN PRN Reason: Anxiety Magnesium Hydroxide (Milk Of Magnesia 30 Ml Oral.Susp) 30 ml PO DAILY PRN PRN Reason: Constipation Ondansetron HCl (Ondansetron Hcl 4 Mg/2 Ml Vial) 4 mg IVPUSH ONCE PRN PRN Reason: Nausea and Vomiting Trazodone HCl (Trazodone Hcl 50 Mg Tablet) 50 mg PO BEDTIME PRN PRN Reason: Insomnia Allergies Allergies Allergy/AdvReac Type Severity Reaction Status Date / Time No Known Allergies Allergy Verified 10/31/22 14:47 Assessment & Plan Assessment & Plan (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 11/04: pt refusing meds and not taking anything PO. nevertheless appears slightly improved from yesterday, more verbal with less latency of response. advised to take meds and fluids. 11/05: ate and drank some last night. refusing meds. no longer grossly catatonic. continue current mgmt. 11/06: no PO intake in past 24H. refusing meds. parnell warning, 3-day up . 11/07: no food, had some water last night. recheck BMP. completed commitment paperwork. refusing meds. 11/08: denies eating or drinking but yesterday's breakfast tray was empty on return. commitment filed. refusing meds. 11/09: continues without PO intake, not attending to ADLs. refusing meds. hearing scheduled for next . labs from yesterday not indicative of concerning dehydration. 11/10 continue tx. more talkative, although guarded. No overt delusional content reported. denies SI/HI. 11/11: will order CMP for tomorrow morning given uncertainty ref PO intake 11/13: increase in BUN and Cr due to dehydration 11/14: continue tx. refuses medications but unable to provide explanation as to why not show understanding in terms of effects of decrease oral intake on renal function. 11/15: unchanged from last week. intermittent meals, BUN mildly elevated. court tomorrow. 11/16: court deferred for BEHZAD. no change in presentation. place on 1:1 for observation of PO intake. lying all day in bed, PMR, with shades drawn, for a darkened room. refusing medications. 11/17: DC olanzapine. offer SSRI. eating and drinking this morning, after having been put on 1:1. continue current mgmt. commitment hearing likely next . 11/18: refusing to look at or speak with MD. clearly ate and drank more yesterday, up and out of room more. nevertheless, spends vast majority of his time lying in bed in the dark. refusing meds. 11/19: ate more yesterday and last night. DC 1:1. appearing catatonic today, no eye blink staring at ceiling not responding. 11/20: moderate PO intake yesterday. appearing more catatonic today. continue to offer meds. 11/21: catatonic. no report on sleep or PO intake as pt is off 1:1. continue to offer meds. 11/22: catatonic. labs reassuring. court tomorrow. 11/23: catatonic. committed and ordered meds in court. 11/24: start ativan 2 mg TID with IM back-up for catatonia. plan to start neuroleptics and anti-depressants once catatonia improved. 11/25: decrease ativan to 1mg tid as he had no response to 2 mg and might be experiencing sedation from it 11/26: More alert on lower ativan dose but remains non-verbal and lying in bed 11/27 increase ativan back to 2mg po TID back up IM. 11/28: T/C gaining IV access to facilitate delivery of ativan; plan to increase to QID dosing. remains catatonic. case d/w nursing administration and medical staff services managerdirector records management. 11/29: gain IV access today, start ativan 2 mg IV QID. was out of bed, eating and speaking yesterday evening. 11/30: 1:1 as he removed IV access, apparently. was up in kitchen getting food on evening shift. continue current mgmt. 12/01: up twice in the past 24H, ate some, swore that lights in his room had been turned on. T/C adding valium 2 mg TID IV (per court order, maximum of 8 mg ativan may be given per day) and/or antipsychotic to regimen. case D/W david. 12/02: Check comprehensive metabolic labs in AM. Continue current management. 12/03: Improved post IM dose of Zyprexa last night. Ate better. More communicative. Continue current plan of care. 12/04: some improvement over w/e. increase IM zyprexa t HS to 5 mg each. continue current mgmt. 12/05: continue current mgmt. up several times yesterday, had conversation with reza nurse, observed eating dinner. 12/06: less active yesterday. did not receive IM zyprexa last night. continue current mgmt. 12/07: received zyprexa IM last night. up for breakfast this morning, exchanged some words with MD for first time in weeks. indicated he has a depressed mood. not opposed to anti-depressant. will start prozac liquid daily. 12/08: lying in bed, not responsive. several interactions with staff yesterday, limited and often non-verbal. refused PO prozac. continue current mgmt. 12/09: still catatonic. 12/10 still catatonic 12/11/22 Patient intermittently responsive often refusing p.o. meds may require ECT 12/12/2022 Patient remains mostly electively mute intermittently catatonic with some periods of verbal discourse 12/13/22 more verbal hx of recurrent depression still gets iv ativan refuses po meds 12 14 22 Continue Ativan and intravenous is encouraged fluoxetine continue olanzapine 5 mg patient does not appear to be psychotic would encourage ECT 12/15/2022 Continue plan of care labs reviewed sodium creatinine within normal limits 12/16: Continue current regimen and plans. Switch Zyprexa to a.m. use. 12/17: Continue current regimen and plans. Decrease Ativan by 2 mg and increase Zyprexa by 10 mg 12/18: continue current regimen. no change in catatonic presentation. 12/19: return ativan to 2 mg QID and zyprexa to 10 mg QHS only. 12/20: due to possibility of akathisia from zyprexa, will try lower potency anti-psychotic, thorazine. DC zyprexa and start thorazine 100 mg PO QHS with 50 mg IM if refuses PO. 12/21: received thorazine last NOC, IM. ate dinner and spoke with EMERY cobb. generally no improvement, no change in presentation. 12/22: awake briefly this morning, endorsing depression. vague, unable to state preference for Tx. continue current mgmt. hearing scheduled for next sunday re ECT. 12/23 ck labs consider iv fluids get med clearance ect 12/24/2022 Of Thorazine discontinued has not been effective can lower blood pressure and someone already with periods of dehydration strongly would benefit from ECT trial 12/25: continue current mgmt. up briefly today to move rooms. ate 3 meals yesterday, reportedly. hearing tomorrow for ECT. 12/26: staring today, no responses. hearing held today, judgment pending. decrease ativan to 2 mg TID in anticipation of ECT. medical clearance and EKG ordered. 12/26: staring today, no responses. IV access lost, will give IM ativan until IV access regained. awaiting word from court on ECT. 12/27: medically cleared for ECT, court ordered ECT. start ECT tomorrow. case d/w david in detail. taper ativan to 4 mg today, may need flumazenil tomorrow prior to ECT. continue ativan taper over w/e. 12/29: ECT #1 completed, clear improvement in mental status and insight. continue ativan taper. ECT #2 on sunday. 12/30: took PO meds yesterday morning after ECT, refusing since. continue current mgmt. 12/31: continue ativan taper. awake and verbal today. not eating or taking meds PO. ECT #2 tomorrow. 01/01: missed morning ECT due to inability to gain IV access. U/S guided IV inserted, will go for anoon ECT. PMR, inert, lying in bed; awake, however, and able to exchange a few words. 01/02 yesterday he had a he has ECT in the evening. Slight improvement. We added a midline IV access sings we could not get an IV access on the previous ECT easily. ECT tomorrow AM Reason for continued inpatient stay Substantial Risk for: inability to function, rapid decompensation and med/psych decompensation Time Spent With Patient Time: Total time managing care of this patient today __20__ minutes.
--- NOTE | 2023-01-02 11:00 | HO.MIDLINE ---
Midline Insertion MIDLINE INSERTION Diagnosis: Depression Indication: ECT Pertinent Labs: N/A Technique: Using sterile technique including cap and mask, glove and drape, the right arm was prepped and draped in the usual sterile fashion of full barrier technique with G. Using ultrasound guidance, right brachial vein access was obtained on first attempt. #20G x 8cm non PASV ST midline was positioned. The procedure was performed in S272. Ultrasound was used to document vein patency and for needle entry. A formal ultrasound picture was recorded. Vascular Provider Relations Specialist has released the line for use and it is currently dressed with a StatLock, Tegaderm, and CHG disc. Verification has been performed for blood return and line patency. Arm Circumference: 28cm Equipment: Power [place] ST midline catheter Catheter Type: #20G/8cm ST Lot #: [id number]
--- NOTE | 2023-01-02 11:12 | HO.MIDLINE ---
Midline Insertion MIDLINE INSERTION Diagnosis: Depression Indication: IV needed for ECT Pertinent Labs: N/A Technique: Using sterile technique including cap and mask, glove and drape, the right arm was prepped and draped in the usual sterile fashion of full barrier technique with G. Using ultrasound guidance, right brachial vein access was obtained on first attempt. A 20G X 8 CM non-PASV ST Midline was positioned. The procedure was performed in S272. Ultrasound was used to document vein patency and for needle entry. A formal ultrasound picture was recorded. Vascular Intelligence Manager has released the line for use and it is currently dressed with a StatLock, Tegaderm, and CHG disc. Verification has been performed for blood return and line patency. Arm Circumference: 28 cm Equipment: PowerGlide ST Midline Catheter Catheter Type: #20G/;8cm ST Lot #: [id number]
--- NOTE | 2023-01-02 13:24 | PC.NURSE ---
1100 Pt returned to floor, tolerated procedure well. Right brachial midline and dressing intact.
[2023-01-02] MEDS: 0.9 % Sodium Chloride Flush 10 ML SYRINGE 5 ML IVFLUSH (14:20)
--- NOTE | 2023-01-02 14:23 | PC.NURSE ---
Right Brachial midline flushed per protocol, 5cc Sterile NS, Pt tolerated well .
[2023-01-02 14:41] VITALS: BP 110/65; PULSE 67; RESP 16; TEMP 36.8; O2SAT 97
[2023-01-02] MEDS: 0.9 % Sodium Chloride Flush 10 ML SYRINGE IVFLUSH ×2 (15:36→22:15)
[2023-01-02 21:59] VITALS: BP 112/68; PULSE 73; TEMP 36.8; O2SAT 97
[2023-01-03] VITALS (10 sets, daily range): BP systolic 97–128; BP diastolic 46–68; PULSE 56–85; RESP 14–20; TEMP 36.2–36.9; O2SAT 95–99
--- NOTE | 2023-01-03 06:35 | PC.NURSE ---
midline-unable to flush. nursing food preparation supervisor notified and was unable to do so. patient escorted to PACU and report given.
--- NOTE | 2023-01-03 07:58 | MHC.SHP ---
Pre-Procedural Eval Section A Date of Service: 01/03/23 The patient is an INPATIENT: Yes Changes since office visit: No Cold of Flu in the past 2 weeks, No New Medical Problems, No Changes in Medication and No Patient answered all questions The History & Physical has been completed within 30 days and I have reviewed it.: Yes Section B Chief Complaint: catatonia Allergies: Allergies Allergy/AdvReac Type Severity Reaction Status Date / Time No Known Allergies Allergy Verified 10/31/22 14:47 Plan I have reviewed the history and physical and performed a pertinent physical examination on my patient. No changes have occurred unless specified. Time Spent With Patient Time: Total time managing care of this patient today ____ minutes.
--- NOTE | 2023-01-03 08:03 | P.CONAN_ITS ---
[facility] Active Problems Active Problems: All Active Problems (Updated 11/11/22 @ 00:11 by Ez Morales) Catatonia (Acute) Cocaine use disorder, mild, in early remission (Acute) Mood disorder (Acute) Cocaine use disorder (Acute) Depression (Acute) Anorexia (Acute) Past Medical History Medical History Cocaine use disorder Family History Family history of problems with anesthesia: No Surgical History History of Problems with Anesthesia: No Social History Social History Household Members: None Housing: Other Housing Other:: TSS Unable to assess alcohol history related to: Refusing to respond Patient Tobacco Use Status: Never used Tobacco Second Hand Smoke Exposure: No Use of substances other than those prescribed or required for medical reasons: No Currently Displaying Signs/Symptoms of Drug Intoxication Withdrawal: No Have you been hit, kicked, punched, or otherwise hurt by someone within the past year? If so, by whom?: No Do you feel safe in your current relationship?: No Current Relationship Is there a partner from a previous relationship who is making you feel unsafe now?: No Are you made to feel afraid or neglected: No Advance Directives: No Advance Directives Information Provided: Yes Advance Directives on File: No Do you have thoughts of harming others: None Do you have a plan to hurt others: No Plan Recently lost weight without trying: Unsure Nutrition Risks: No Nutritional Risk service: No Sexual orientation: Decline to Answer Meds Allergies Allergy/AdvReac Type Severity Reaction Status Date / Time No Known Allergies Allergy Verified 10/31/22 14:47 Active Medications: Current Medications Acetaminophen (Acetaminophen 325 Mg Tablet) 650 mg PO Q6H PRN PRN Reason: Headache/Pain Mild Scale (1-3) Last Admin: 12/29/22 12:15 Dose: 650 mg Acetaminophen (Acetaminophen 325 Mg Tablet) 650 mg PO ONCE PRN PRN Reason: Pain, Mild (Pain Scale 1-3) Al Hydroxide/Mg Hydroxide (Magnesium Hydrox/Alum Hydrox 30 Ml Oral.Susp) 30 ml PO Q6H PRN PRN Reason: Heartburn/Nausea Artificial Tears (Artificial Tears 15 Ml Drops) 2 drop EYE-BOTH Q4H PRN PRN Reason: Dry Eyes Last Admin: 12/02/22 14:19 Dose: 2 drop Benzocaine (Throat Lozenge, Medicated Lozenge) 1 lozenge MUCOUS MEM Q2H PRN PRN Reason: Sore Throat Last Admin: 12/29/22 12:23 Dose: 1 lozenge Fluoxetine HCl (Fluoxetine Hcl 20 Mg Capsule) 20 mg PO DAILY [facility] Last Admin: 01/02/23 11:03 Dose: Not Given Hydroxyzine HCl (Hydroxyzine Hcl 25 Mg Tablet) 25 mg PO Q6H PRN PRN Reason: Anxiety Lactated Ringer's (Lr) 1,000 mls @ 50 mls/hr IVCONT .Q20H [facility] Magnesium Hydroxide (Milk Of Magnesia 30 Ml Oral.Susp) 30 ml PO DAILY PRN PRN Reason: Constipation Ondansetron HCl (Ondansetron Hcl 4 Mg/2 Ml Vial) 4 mg IVPUSH ONCE PRN PRN Reason: Nausea and Vomiting Sodium Chloride (0.9 % Sodium Chloride Flush 10 Ml Syringe) 10 ml IVFLUSH Q8H [facility] Last Admin: 01/02/23 22:15 Dose: 10 ml Trazodone HCl (Trazodone Hcl 50 Mg Tablet) 50 mg PO BEDTIME PRN PRN Reason: Insomnia Home Medications Medication Instructions Recorded Confirmed Last Taken Type No Known Home Meds 10/31/22 11/04/22 Unknown History Exam Exam Date and Time: January 03, 2023 0803 Height,Weight and Vital Signs: Height 6 ft Weight 77.111 kg Last Vital Signs Temp 97.2 F 01/03/23 06:56 Pulse 64 01/03/23 06:56 Resp 16 01/03/23 06:56 BP 107/68 01/03/23 06:56 Pulse Ox 98 01/03/23 06:56 O2 Del Method Room Air 01/03/23 06:56 O2 Flow Rate 2 01/01/23 14:25 Pertinent Lab Results Pertinent Lab Results: Laboratory Tests 11/03/22 11/05/22 11/08/22 15:48 12:58 15:07 Sodium 142 140 Potassium 4.1 D 4.1 Chloride 108 105 Carbon Dioxide 26 28 Anion Gap 12 11 L BUN 23 H 15 Creatinine 0.73 0.83 0.72 Estim Creat Clear Calc TNP TNP TNP Estimated GFR > 60 > 60 > 60 Random Glucose 97 95 Calcium 9.1 9.7 D Total Bilirubin AST ALT Alkaline Phosphatase Total Protein Albumin 11/13/22 11/16/22 11/22/22 08:00 08:11 11:55 Sodium 140 138 137 Potassium 4.8 4.9 4.5 Chloride 103 106 106 Carbon Dioxide 22 22 25 Anion Gap 20 15 11 L BUN 25 H 16 16 Creatinine 1.07 0.97 0.86 Estim Creat Clear Calc TNP TNP TNP Estimated GFR > 60 > 60 > 60 Random Glucose 73 89 93 Calcium 10.0 9.6 9.9 Total Bilirubin 0.9 0.9 AST 21 22 ALT 16 15 Alkaline Phosphatase 62 59 Total Protein 7.1 6.8 Albumin 4.0 3.6 12/03/22 12/15/22 12/23/22 07:45 09:53 17:51 Sodium 139 139 139 Potassium 4.8 4.3 4.2 Chloride 107 106 104 Carbon Dioxide 24 23 23 Anion Gap 13 14 16 BUN 13 11 11 Creatinine 0.73 0.74 0.77 Estim Creat Clear Calc TNP TNP TNP Estimated GFR > 60 > 60 > 60 Random Glucose 103 86 79 Calcium 9.3 D 9.3 9.8 Total Bilirubin 0.5 0.7 0.8 AST 25 18 24 ALT 20 16 16 Alkaline Phosphatase 47 55 68 Total Protein 6.4 L 6.5 7.1 Albumin 3.5 3.6 4.0 Airway Mallampati Class: II TM Dist: >3cm Neck ROM: Full Heart: rrr Lungs: cta Assessment and Plan Assessment Anesthesia Assessment: Anesthesia Plan Discussed and Chart Reviewed Final Anesthetic Review Family History of Problems with Anesthesia: No History of Problems with Anesthesia: No NPO: Yes ASA Class: III Final Preanesthetic Review: No Changes in Pt Med Stat, Meds/Allgs Chart Reviewed and Consent Obtained/Reviewed Patient Risk: Intermediate Procedure Risk: Intermediate Anesthetic Plan Anesthetic Plan: GA Disposition: Standard PACU
--- NOTE | 2023-01-03 08:15 | HO.ECTPROC ---
ECT Procedure Note Diagnosis/Treatment Date of Service: 01/03/23 Diagnosis: Catatonia Previous ECT Date: 01/01/23 Current Treatment Number: 3 Treatment: Series Interval Clinical Notes: The patient reported improvement, he is more awake, alert and responsive. His affect is brighter. Yesterday, he had a shower after several weeks. He complained of headaches after the last procedure. Time: Total time managing care of this patient today __30__ minutes. ECT Settings Device: THYMATRON DGx Electrode Placement: Bitemporal Program/Pulse Width: 0.50 Energy Percent: 100 Seizure Duration By EEG (in seconds): 33 By Motor Observation (in seconds): 32 Medications Administration General Anesthetic: Etomidate (16) Muscle Relaxant: Succinylcholine (100) Ancillary Medications Analgesics: Torodol - Pre ECT Anti-emetics: Zofran - Pre ECT Cardiovascular Medications: Glycopyrrolate Miscillaneous Medications: Propofol Airway Management Airway Management: Bag Mask Ventilation Treatment Recommendations No Changes Recommended: No change Pt Tolerated Procedure w/o Issue: Yes
--- NOTE | 2023-01-03 11:43 | HO.PSYCHPN ---
Subjective Subjective Date of Service: 01/03/23 Reason For Visit: catatonia Interim History: found lying in bed awake. more verbal than previous. states he is not hungry or thirsty, still. no complaints or requests. just back from ECT this morning, c/o KWON, states he received tylenol. per staff, in bed most of day yesterday. had midline placed. attempted shower yesterday. not taking PO meds. more responsive that prior. Mental Status Exam Mental Status Exam Narrative: Very poor self-care. lying in bed but awake and responding to verbal prompts. cooperative. no SI/HI/AVH expressed. Insight and judgment appears limited. Diagnostics Vital Signs (24Hr): Vital Signs - 24 hr 01/02/23 14:41 01/02/23 21:59 01/03/23 06:20 Temperature 98.2 F 98.3 F 97.8 F Pulse Rate 67 73 56 Respiratory Rate 16 14 Blood Pressure 110/65 112/68 97/56 L Pulse Oximetry 97 97 Oxygen Delivery Method Room Air Room Air Oxygen Flow Rate 01/03/23 06:56 01/03/23 08:25 01/03/23 08:30 Temperature 97.2 F 98.2 F Pulse Rate 64 85 74 Respiratory Rate 16 14 20 Blood Pressure 107/68 128/49 L 116/66 Pulse Oximetry 98 95 96 Oxygen Delivery Method Room Air Nasal Cannula with ETCO2 Nasal Cannula with ETCO2 Oxygen Flow Rate 2 2 01/03/23 08:35 01/03/23 08:40 01/03/23 08:58 Temperature 98.0 F Pulse Rate 71 73 71 Respiratory Rate 19 17 18 Blood Pressure 110/65 111/46 L 102/59 L Pulse Oximetry 99 97 97 Oxygen Delivery Method Nasal Cannula with ETCO2 Room Air Room Air Oxygen Flow Rate 2 01/03/23 09:09 01/03/23 09:35 Temperature 98.4 F 98.4 F Pulse Rate 60 60 Respiratory Rate 20 18 Blood Pressure 110/64 110/64 Pulse Oximetry 96 96 Oxygen Delivery Method Room Air Oxygen Flow Rate BMI result Body Mass Index 23.1 Labs 12/23/22 17:51 Medications Medications Current Medications Acetaminophen (Acetaminophen 325 Mg Tablet) 650 mg PO Q6H PRN PRN Reason: Headache/Pain Mild Scale (1-3) Last Admin: 12/29/22 12:15 Dose: 650 mg Acetaminophen (Acetaminophen 325 Mg Tablet) 650 mg PO ONCE PRN PRN Reason: Pain, Mild (Pain Scale 1-3) Al Hydroxide/Mg Hydroxide (Magnesium Hydrox/Alum Hydrox 30 Ml Oral.Susp) 30 ml PO Q6H PRN PRN Reason: Heartburn/Nausea Artificial Tears (Artificial Tears 15 Ml Drops) 2 drop EYE-BOTH Q4H PRN PRN Reason: Dry Eyes Last Admin: 12/02/22 14:19 Dose: 2 drop Benzocaine (Throat Lozenge, Medicated Lozenge) 1 lozenge MUCOUS MEM Q2H PRN PRN Reason: Sore Throat Last Admin: 12/29/22 12:23 Dose: 1 lozenge Fluoxetine HCl (Fluoxetine Hcl 20 Mg Capsule) 20 mg PO DAILY [facility] Last Admin: 01/03/23 09:10 Dose: Not Given Hydroxyzine HCl (Hydroxyzine Hcl 25 Mg Tablet) 25 mg PO Q6H PRN PRN Reason: Anxiety Magnesium Hydroxide (Milk Of Magnesia 30 Ml Oral.Susp) 30 ml PO DAILY PRN PRN Reason: Constipation Ondansetron HCl (Ondansetron Hcl 4 Mg/2 Ml Vial) 4 mg IVPUSH ONCE PRN PRN Reason: Nausea and Vomiting Sodium Chloride (0.9 % Sodium Chloride Flush 10 Ml Syringe) 10 ml IVFLUSH Q8H [facility] Last Admin: 01/03/23 09:11 Dose: Not Given Trazodone HCl (Trazodone Hcl 50 Mg Tablet) 50 mg PO BEDTIME PRN PRN Reason: Insomnia Allergies Allergies Allergy/AdvReac Type Severity Reaction Status Date / Time No Known Allergies Allergy Verified 10/31/22 14:47 Assessment & Plan Assessment & Plan (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 11/04: pt refusing meds and not taking anything PO. nevertheless appears slightly improved from yesterday, more verbal with less latency of response. advised to take meds and fluids. 11/05: ate and drank some last night. refusing meds. no longer grossly catatonic. continue current mgmt. 11/06: no PO intake in past 24H. refusing meds. parnell warning, 3-day up . 11/07: no food, had some water last night. recheck BMP. completed commitment paperwork. refusing meds. 11/08: denies eating or drinking but yesterday's breakfast tray was empty on return. commitment filed. refusing meds. 11/09: continues without PO intake, not attending to ADLs. refusing meds. hearing scheduled for next . labs from yesterday not indicative of concerning dehydration. 11/10 continue tx. more talkative, although guarded. No overt delusional content reported. denies SI/HI. 11/11: will order CMP for tomorrow morning given uncertainty ref PO intake 11/13: increase in BUN and Cr due to dehydration 11/14: continue tx. refuses medications but unable to provide explanation as to why not show understanding in terms of effects of decrease oral intake on renal function. 11/15: unchanged from last week. intermittent meals, BUN mildly elevated. court tomorrow. 11/16: court deferred for BEHZAD. no change in presentation. place on 1:1 for observation of PO intake. lying all day in bed, PMR, with shades drawn, for a darkened room. refusing medications. 11/17: DC olanzapine. offer SSRI. eating and drinking this morning, after having been put on 1:1. continue current mgmt. commitment hearing likely next . 11/18: refusing to look at or speak with MD. clearly ate and drank more yesterday, up and out of room more. nevertheless, spends vast majority of his time lying in bed in the dark. refusing meds. 11/19: ate more yesterday and last night. DC 1:1. appearing catatonic today, no eye blink staring at ceiling not responding. 11/20: moderate PO intake yesterday. appearing more catatonic today. continue to offer meds. 11/21: catatonic. no report on sleep or PO intake as pt is off 1:1. continue to offer meds. 11/22: catatonic. labs reassuring. court tomorrow. 11/23: catatonic. committed and ordered meds in court. 11/24: start ativan 2 mg TID with IM back-up for catatonia. plan to start neuroleptics and anti-depressants once catatonia improved. 11/25: decrease ativan to 1mg tid as he had no response to 2 mg and might be experiencing sedation from it 11/26: More alert on lower ativan dose but remains non-verbal and lying in bed 11/27 increase ativan back to 2mg po TID back up IM. 11/28: T/C gaining IV access to facilitate delivery of ativan; plan to increase to QID dosing. remains catatonic. case d/w nursing administration and medical device assemblerspecial education director. 11/29: gain IV access today, start ativan 2 mg IV QID. was out of bed, eating and speaking yesterday evening. 11/30: 1:1 as he removed IV access, apparently. was up in kitchen getting food on evening shift. continue current mgmt. 12/01: up twice in the past 24H, ate some, swore that lights in his room had been turned on. T/C adding valium 2 mg TID IV (per court order, maximum of 8 mg ativan may be given per day) and/or antipsychotic to regimen. case D/W david. 12/02: Check comprehensive metabolic labs in AM. Continue current management. 12/03: Improved post IM dose of Zyprexa last night. Ate better. More communicative. Continue current plan of care. 12/04: some improvement over w/e. increase IM zyprexa t HS to 5 mg each. continue current mgmt. 12/05: continue current mgmt. up several times yesterday, had conversation with reza nurse, observed eating dinner. 12/06: less active yesterday. did not receive IM zyprexa last night. continue current mgmt. 12/07: received zyprexa IM last night. up for breakfast this morning, exchanged some words with MD for first time in weeks. indicated he has a depressed mood. not opposed to anti-depressant. will start prozac liquid daily. 12/08: lying in bed, not responsive. several interactions with staff yesterday, limited and often non-verbal. refused PO prozac. continue current mgmt. 7/29: still catatonic. 12/10 still catatonic 12/11/22 Patient intermittently responsive often refusing p.o. meds may require ECT 12/12/2022 Patient remains mostly electively mute intermittently catatonic with some periods of verbal discourse 12/13/22 more verbal hx of recurrent depression still gets iv ativan refuses po meds 12 14 22 Continue Ativan and intravenous is encouraged fluoxetine continue olanzapine 5 mg patient does not appear to be psychotic would encourage ECT 12/15/2022 Continue plan of care labs reviewed sodium creatinine within normal limits 12/16: Continue current regimen and plans. Switch Zyprexa to a.m. use. 12/17: Continue current regimen and plans. Decrease Ativan by 2 mg and increase Zyprexa by 10 mg 12/18: continue current regimen. no change in catatonic presentation. 12/19: return ativan to 2 mg QID and zyprexa to 10 mg QHS only. 12/20: due to possibility of akathisia from zyprexa, will try lower potency anti-psychotic, thorazine. DC zyprexa and start thorazine 100 mg PO QHS with 50 mg IM if refuses PO. 12/21: received thorazine last NOC, IM. ate dinner and spoke with EMERY cobb. generally no improvement, no change in presentation. 12/22: awake briefly this morning, endorsing depression. vague, unable to state preference for Tx. continue current mgmt. hearing scheduled for next sunday re ECT. 12/23 ck labs consider iv fluids get med clearance ect 12/24/2022 Of Thorazine discontinued has not been effective can lower blood pressure and someone already with periods of dehydration strongly would benefit from ECT trial 12/25: continue current mgmt. up briefly today to move rooms. ate 3 meals yesterday, reportedly. hearing tomorrow for ECT. 12/26: staring today, no responses. hearing held today, judgment pending. decrease ativan to 2 mg TID in anticipation of ECT. medical clearance and EKG ordered. 12/26: staring today, no responses. IV access lost, will give IM ativan until IV access regained. awaiting word from court on ECT. 12/27: medically cleared for ECT, court ordered ECT. start ECT tomorrow. case d/w david in detail. taper ativan to 4 mg today, may need flumazenil tomorrow prior to ECT. continue ativan taper over w/. 12/29: ECT #1 completed, clear improvement in mental status and insight. continue ativan taper. ECT #2 on sunday. 12/30: took PO meds yesterday morning after ECT, refusing since. continue current mgmt. 12/31: continue ativan taper. awake and verbal today. not eating or taking meds PO. ECT #2 tomorrow. 01/01: missed morning ECT due to inability to gain IV access. U/S guided IV inserted, will go for anoon ECT. PMR, inert, lying in bed; awake, however, and able to exchange a few words. 01/02 yesterday he had a he has ECT in the evening. Slight improvement. We added a midline IV access sings we could not get an IV access on the previous ECT easily. ECT tomorrow AM. 01/03: ECT #3 completed this morning. remains more alert and responsive than prior, yet still very poor PO intake and refusing PO meds. continue current mgmt. Reason for continued inpatient stay Substantial Risk for: inability to function and rapid decompensation Time Spent With Patient Time: Total time managing care of this patient today ____ minutes.
[2023-01-03] MEDS: 0.9 % Sodium Chloride Flush 10 ML SYRINGE IVFLUSH ×2 (17:04→22:58)
[2023-01-04 07:00] VITALS: BMI 21.2
[2023-01-04] MEDS: 0.9 % Sodium Chloride Flush 10 ML SYRINGE IVFLUSH ×3 (08:26→22:57)
[2023-01-04 09:16] VITALS: BP 99/57; PULSE 64; RESP 18; TEMP 36.8; O2SAT 97
--- NOTE | 2023-01-04 13:09 | P.PNPSI_ITS ---
Subjective Subjective Date of Service: 01/04/23 Reason For Visit: catatonia Interim History: awake, interactive. reports poor appetite, poor fluid intake. mood OK. per staff, +anx/dep, racing thoughts. safe, withdrawn. refusing meds. poor sleep. Mental Status Exam Mental Status Exam Narrative: Very poor self-care. lying in bed but awake and responding to verbal prompts. cooperative. mood OK. no SI/HI/AVH expressed. Insight and judgment appears limited. Diagnostics Vital Signs (24Hr): Vital Signs - 24 hr 01/03/23 20:21 01/04/23 09:16 Temperature 97.2 F 98.2 F Pulse Rate 72 64 Respiratory Rate 18 Blood Pressure 101/59 L 99/57 L Pulse Oximetry 95 97 Oxygen Delivery Method Room Air Room Air BMI result Body Mass Index 21.2 Labs 12/23/22 17:51 Medications Medications Current Medications Acetaminophen (Acetaminophen 325 Mg Tablet) 650 mg PO Q6H PRN PRN Reason: Headache/Pain Mild Scale (1-3) Last Admin: 12/29/22 12:15 Dose: 650 mg Acetaminophen (Acetaminophen 325 Mg Tablet) 650 mg PO ONCE PRN PRN Reason: Pain, Mild (Pain Scale 1-3) Al Hydroxide/Mg Hydroxide (Magnesium Hydrox/Alum Hydrox 30 Ml Oral.Susp) 30 ml PO Q6H PRN PRN Reason: Heartburn/Nausea Artificial Tears (Artificial Tears 15 Ml Drops) 2 drop EYE-BOTH Q4H PRN PRN Reason: Dry Eyes Last Admin: 12/02/22 14:19 Dose: 2 drop Benzocaine (Throat Lozenge, Medicated Lozenge) 1 lozenge MUCOUS MEM Q2H PRN PRN Reason: Sore Throat Last Admin: 12/29/22 12:23 Dose: 1 lozenge Fluoxetine HCl (Fluoxetine Hcl 20 Mg Capsule) 20 mg PO DAILY [facility] Last Admin: 01/04/23 08:27 Dose: Not Given Hydroxyzine HCl (Hydroxyzine Hcl 25 Mg Tablet) 25 mg PO Q6H PRN PRN Reason: Anxiety Magnesium Hydroxide (Milk Of Magnesia 30 Ml Oral.Susp) 30 ml PO DAILY PRN PRN Reason: Constipation Ondansetron HCl (Ondansetron Hcl 4 Mg/2 Ml Vial) 4 mg IVPUSH ONCE PRN PRN Reason: Nausea and Vomiting Sodium Chloride (0.9 % Sodium Chloride Flush 10 Ml Syringe) 10 ml IVFLUSH Q8H [facility] Last Admin: 01/04/23 08:26 Dose: 10 ml Trazodone HCl (Trazodone Hcl 50 Mg Tablet) 50 mg PO BEDTIME PRN PRN Reason: Insomnia Allergies Allergies Allergy/AdvReac Type Severity Reaction Status Date / Time No Known Allergies Allergy Verified 10/31/22 14:47 Assessment & Plan Assessment & Plan (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 11/04: pt refusing meds and not taking anything PO. nevertheless appears slightly improved from yesterday, more verbal with less latency of response. advised to take meds and fluids. 11/05: ate and drank some last night. refusing meds. no longer grossly catatonic. continue current mgmt. 11/06: no PO intake in past 24H. refusing meds. parnell warning, 3-day up . 11/07: no food, had some water last night. recheck BMP. completed commitment paperwork. refusing meds. 11/08: denies eating or drinking but yesterday's breakfast tray was empty on return. commitment filed. refusing meds. 11/09: continues without PO intake, not attending to ADLs. refusing meds. hearing scheduled for next . labs from yesterday not indicative of concerning dehydration. 11/10 continue tx. more talkative, although guarded. No overt delusional content reported. denies SI/HI. 11/11: will order CMP for tomorrow morning given uncertainty ref PO intake 11/13: increase in BUN and Cr due to dehydration 11/14: continue tx. refuses medications but unable to provide explanation as to why not show understanding in terms of effects of decrease oral intake on renal function. 11/15: unchanged from last week. intermittent meals, BUN mildly elevated. court tomorrow. 11/16: court deferred for BEHZAD. no change in presentation. place on 1:1 for observation of PO intake. lying all day in bed, PMR, with shades drawn, for a darkened room. refusing medications. 11/17: DC olanzapine. offer SSRI. eating and drinking this morning, after having been put on 1:1. continue current mgmt. commitment hearing likely next . 11/18: refusing to look at or speak with MD. clearly ate and drank more yesterday, up and out of room more. nevertheless, spends vast majority of his time lying in bed in the dark. refusing meds. 11/19: ate more yesterday and last night. DC 1:1. appearing catatonic today, no eye blink staring at ceiling not responding. 11/20: moderate PO intake yesterday. appearing more catatonic today. continue to offer meds. 11/21: catatonic. no report on sleep or PO intake as pt is off 1:1. continue to offer meds. 11/22: catatonic. labs reassuring. court tomorrow. 11/23: catatonic. committed and ordered meds in court. 11/24: start ativan 2 mg TID with IM back-up for catatonia. plan to start neuroleptics and anti-depressants once catatonia improved. 11/25: decrease ativan to 1mg tid as he had no response to 2 mg and might be experiencing sedation from it 11/26: More alert on lower ativan dose but remains non-verbal and lying in bed 11/27 increase ativan back to 2mg po TID back up IM. 11/28: T/C gaining IV access to facilitate delivery of ativan; plan to increase to QID dosing. remains catatonic. case d/w nursing administration and outside medical sales representativewaterfront director. 11/29: gain IV access today, start ativan 2 mg IV QID. was out of bed, eating and speaking yesterday evening. 11/30: 1:1 as he removed IV access, apparently. was up in kitchen getting food on evening shift. continue current mgmt. 12/01: up twice in the past 24H, ate some, swore that lights in his room had been turned on. T/C adding valium 2 mg TID IV (per court order, maximum of 8 mg ativan may be given per day) and/or antipsychotic to regimen. case D/W david. 12/02: Check comprehensive metabolic labs in AM. Continue current management. 12/03: Improved post IM dose of Zyprexa last night. Ate better. More communicative. Continue current plan of care. 12/04: some improvement over w/e. increase IM zyprexa t HS to 5 mg each. continue current mgmt. 12/05: continue current mgmt. up several times yesterday, had conversation with reza hilton, observed eating dinner. 12/06: less active yesterday. did not receive IM zyprexa last night. continue current mgmt. 12/07: received zyprexa IM last night. up for breakfast this morning, exchanged some words with MD for first time in weeks. indicated he has a depressed mood. not opposed to anti-depressant. will start prozac liquid daily. 12/08: lying in bed, not responsive. several interactions with staff yesterday, limited and often non-verbal. refused PO prozac. continue current mgmt. 12/09: still catatonic. 12/10 still catatonic 12/11/22 Patient intermittently responsive often refusing p.o. meds may require ECT 12/12/2022 Patient remains mostly electively mute intermittently catatonic with some periods of verbal discourse 12/13/22 more verbal hx of recurrent depression still gets iv ativan refuses po meds 12 14 22 Continue Ativan and intravenous is encouraged fluoxetine continue olanzapine 5 mg patient does not appear to be psychotic would encourage ECT 12/15/2022 Continue plan of care labs reviewed sodium creatinine within normal limits 12/16: Continue current regimen and plans. Switch Zyprexa to a.m. use. 12/17: Continue current regimen and plans. Decrease Ativan by 2 mg and increase Zyprexa by 10 mg 12/18: continue current regimen. no change in catatonic presentation. 12/19: return ativan to 2 mg QID and zyprexa to 10 mg QHS only. 12/20: due to possibility of akathisia from zyprexa, will try lower potency anti- psychotic, thorazine. DC zyprexa and start thorazine 100 mg PO QHS with 50 mg IM if refuses PO. 12/21: received thorazine last NOC, IM. ate dinner and spoke with EMERY cobb. generally no improvement, no change in presentation. 12/22: awake briefly this morning, endorsing depression. vague, unable to state preference for Tx. continue current mgmt. hearing scheduled for next sunday re ECT. 12/23 ck labs consider iv fluids get med clearance ect 12/24/2022 Of Thorazine discontinued has not been effective can lower blood pressure and someone already with periods of dehydration strongly would benefit from ECT trial 12/25: continue current mgmt. up briefly today to move rooms. ate 3 meals yesterday, reportedly. hearing tomorrow for ECT. 12/26: staring today, no responses. hearing held today, judgment pending. decrease ativan to 2 mg TID in anticipation of ECT. medical clearance and EKG ordered. 12/26: staring today, no responses. IV access lost, will give IM ativan until IV access regained. awaiting word from court on ECT. 12/27: medically cleared for ECT, court ordered ECT. start ECT tomorrow. case d/w david in detail. taper ativan to 4 mg today, may need flumazenil tomorrow prior to ECT. continue ativan taper over w/e. 12/29: ECT #1 completed, clear improvement in mental status and insight. continue ativan taper. ECT #2 on sunday. 12/30: took PO meds yesterday morning after ECT, refusing since. continue current mgmt. 12/31: continue ativan taper. awake and verbal today. not eating or taking meds PO. ECT #2 tomorrow. 01/01: missed morning ECT due to inability to gain IV access. U/S guided IV inserted, will go for anoon ECT. PMR, inert, lying in bed; awake, however, and able to exchange a few words. 01/02 yesterday he had a he has ECT in the evening. Slight improvement. We added a midline IV access sings we could not get an IV access on the previous ECT easily. ECT tomorrow AM. 01/03: ECT #3 completed this morning. remains more alert and responsive than prior, yet still very poor PO intake and refusing PO meds. continue current mgmt. 01/04: remains alert and interactive. still PMR, poor appetite. ECT scheduled for tomorrow. Reason for continued inpatient stay Substantial Risk for: inability to function and rapid decompensation Time Spent With Patient Time: Total time managing care of this patient today ____ minutes.
[2023-01-04 20:00] VITALS: BP 109/57; PULSE 56; RESP 16; TEMP 36.6; O2SAT 97
[2023-01-05] VITALS (9 sets, daily range): BP systolic 94–114; BP diastolic 54–77; PULSE 56–91; RESP 13–20; TEMP 36.3–37.2; O2SAT 93–100
--- NOTE | 2023-01-05 07:03 | P.CONAN_ITS ---
[facility] Active Problems Active Problems: All Active Problems (Updated 11/11/22 @ 00:11 by Ez Morales) Catatonia (Acute) Cocaine use disorder, mild, in early remission (Acute) Mood disorder (Acute) Cocaine use disorder (Acute) Depression (Acute) Anorexia (Acute) Past Medical History Medical History Cocaine use disorder Family History Family history of problems with anesthesia: No Surgical History History of Problems with Anesthesia: No Social History Social History Household Members: None Housing: Other Housing Other:: TSS Unable to assess alcohol history related to: Refusing to respond Patient Tobacco Use Status: Never used Tobacco Second Hand Smoke Exposure: No Use of substances other than those prescribed or required for medical reasons: No Currently Displaying Signs/Symptoms of Drug Intoxication Withdrawal: No Have you been hit, kicked, punched, or otherwise hurt by someone within the past year? If so, by whom?: No Do you feel safe in your current relationship?: No Current Relationship Is there a partner from a previous relationship who is making you feel unsafe now?: No Are you made to feel afraid or neglected: No Advance Directives: No Advance Directives Information Provided: Yes Advance Directives on File: No Do you have thoughts of harming others: None Do you have a plan to hurt others: No Plan Recently lost weight without trying: Unsure Nutrition Risks: No Nutritional Risk service: No Sexual orientation: Decline to Answer Meds Allergies Allergy/AdvReac Type Severity Reaction Status Date / Time No Known Allergies Allergy Verified 10/31/22 14:47 Active Medications: Current Medications Acetaminophen (Acetaminophen 325 Mg Tablet) 650 mg PO Q6H PRN PRN Reason: Headache/Pain Mild Scale (1-3) Last Admin: 12/29/22 12:15 Dose: 650 mg Acetaminophen (Acetaminophen 325 Mg Tablet) 650 mg PO ONCE PRN PRN Reason: Pain, Mild (Pain Scale 1-3) Al Hydroxide/Mg Hydroxide (Magnesium Hydrox/Alum Hydrox 30 Ml Oral.Susp) 30 ml PO Q6H PRN PRN Reason: Heartburn/Nausea Artificial Tears (Artificial Tears 15 Ml Drops) 2 drop EYE-BOTH Q4H PRN PRN Reason: Dry Eyes Last Admin: 12/02/22 14:19 Dose: 2 drop Benzocaine (Throat Lozenge, Medicated Lozenge) 1 lozenge MUCOUS MEM Q2H PRN PRN Reason: Sore Throat Last Admin: 12/29/22 12:23 Dose: 1 lozenge Fluoxetine HCl (Fluoxetine Hcl 20 Mg Capsule) 20 mg PO DAILY [facility] Last Admin: 01/04/23 08:27 Dose: Not Given Hydroxyzine HCl (Hydroxyzine Hcl 25 Mg Tablet) 25 mg PO Q6H PRN PRN Reason: Anxiety Lactated Ringer's (Lr) 1,000 mls @ 50 mls/hr IVCONT .Q20H [facility] Magnesium Hydroxide (Milk Of Magnesia 30 Ml Oral.Susp) 30 ml PO DAILY PRN PRN Reason: Constipation Ondansetron HCl (Ondansetron Hcl 4 Mg/2 Ml Vial) 4 mg IVPUSH ONCE PRN PRN Reason: Nausea and Vomiting Sodium Chloride (0.9 % Sodium Chloride Flush 10 Ml Syringe) 10 ml IVFLUSH Q8H [facility] Last Admin: 01/04/23 22:57 Dose: 10 ml Trazodone HCl (Trazodone Hcl 50 Mg Tablet) 50 mg PO BEDTIME PRN PRN Reason: Insomnia Home Medications Medication Instructions Recorded Confirmed Last Taken Type No Known Home Meds 10/31/22 11/04/22 Unknown History Exam Exam Date and Time: January 05, 2023 0703 Height,Weight and Vital Signs: Height 6 ft Weight 70.76 kg Last Vital Signs Temp 98.1 F 01/05/23 06:21 Pulse 73 01/05/23 06:21 Resp 16 01/05/23 06:21 BP 109/77 01/05/23 06:21 Pulse Ox 98 01/05/23 06:21 O2 Del Method Room Air 01/05/23 06:21 O2 Flow Rate 2 01/03/23 08:35 Pertinent Lab Results Pertinent Lab Results: Laboratory Tests 11/03/22 11/05/22 11/08/22 15:48 12:58 15:07 Sodium 142 140 Potassium 4.1 D 4.1 Chloride 108 105 Carbon Dioxide 26 28 Anion Gap 12 11 L BUN 23 H 15 Creatinine 0.73 0.83 0.72 Estim Creat Clear Calc TNP TNP TNP Estimated GFR > 60 > 60 > 60 Random Glucose 97 95 Calcium 9.1 9.7 D Total Bilirubin AST ALT Alkaline Phosphatase Total Protein Albumin 11/13/22 11/16/22 11/22/22 08:00 08:11 11:55 Sodium 140 138 137 Potassium 4.8 4.9 4.5 Chloride 103 106 106 Carbon Dioxide 22 22 25 Anion Gap 20 15 11 L BUN 25 H 16 16 Creatinine 1.07 0.97 0.86 Estim Creat Clear Calc TNP TNP TNP Estimated GFR > 60 > 60 > 60 Random Glucose 73 89 93 Calcium 10.0 9.6 9.9 Total Bilirubin 0.9 0.9 AST 21 22 ALT 16 15 Alkaline Phosphatase 62 59 Total Protein 7.1 6.8 Albumin 4.0 3.6 12/03/22 12/15/22 12/23/22 07:45 09:53 17:51 Sodium 139 139 139 Potassium 4.8 4.3 4.2 Chloride 107 106 104 Carbon Dioxide 24 23 23 Anion Gap 13 14 16 BUN 13 11 11 Creatinine 0.73 0.74 0.77 Estim Creat Clear Calc TNP TNP TNP Estimated GFR > 60 > 60 > 60 Random Glucose 103 86 79 Calcium 9.3 D 9.3 9.8 Total Bilirubin 0.5 0.7 0.8 AST 25 18 24 ALT 20 16 16 Alkaline Phosphatase 47 55 68 Total Protein 6.4 L 6.5 7.1 Albumin 3.5 3.6 4.0 Airway Mallampati Class: II TM Dist: >3cm Neck ROM: Full Heart: rrr Lungs: cta Assessment and Plan Assessment Anesthesia Assessment: Anesthesia Plan Discussed and Chart Reviewed Final Anesthetic Review Family History of Problems with Anesthesia: No History of Problems with Anesthesia: No ASA Class: III Final Preanesthetic Review: No Changes in Pt Med Stat, Meds/Allgs Chart Reviewed and Consent Obtained/Reviewed Patient Risk: Intermediate Procedure Risk: Intermediate Anesthetic Plan Anesthetic Plan: GA Disposition: Standard PACU
--- NOTE | 2023-01-05 07:05 | MHC.SHP ---
Pre-Procedural Eval Section A Date of Service: 01/05/23 The patient is an INPATIENT: Yes Changes since office visit: No Cold of Flu in the past 2 weeks, No New Medical Problems, No Changes in Medication and No Patient answered all questions The History & Physical has been completed within 30 days and I have reviewed it.: Yes Section B Chief Complaint: catatonia Allergies: Allergies Allergy/AdvReac Type Severity Reaction Status Date / Time No Known Allergies Allergy Verified 10/31/22 14:47 Plan I have reviewed the history and physical and performed a pertinent physical examination on my patient. No changes have occurred unless specified. Time Spent With Patient Time: Total time managing care of this patient today ____ minutes.
--- NOTE | 2023-01-05 07:40 | HO.ECTPROC ---
ECT Procedure Note Diagnosis/Treatment Date of Service: 01/05/23 Diagnosis: Catatonia Previous ECT Date: 01/03/23 Current Treatment Number: 4 Treatment: Series Interval Clinical Notes: The patient is more awake, alert and responsive. He admitted mild headaches after the last procedure, overall, remark improvement since we started ECT. Time: Total time managing care of this patient today __30__ minutes. ECT Settings Device: THYMATRON DGx Electrode Placement: Bitemporal Program/Pulse Width: 0.50 Energy Percent: 100 Seizure Duration By EEG (in seconds): 47 By Motor Observation (in seconds): 41 Medications Administration General Anesthetic: Etomidate (16) Muscle Relaxant: Succinylcholine (100) Ancillary Medications Analgesics: Torodol - Pre ECT Anti-emetics: Zofran - Pre ECT Cardiovascular Medications: Esmolol and Glycopyrrolate Airway Management Airway Management: Bag Mask Ventilation Treatment Recommendations No Changes Recommended: No change Pt Tolerated Procedure w/o Issue: Yes
[2023-01-05] MEDS: 0.9 % Sodium Chloride Flush 10 ML SYRINGE IVFLUSH ×3 (09:17→22:59)
--- NOTE | 2023-01-05 12:25 | HO.PSYCHPN ---
Subjective Subjective Date of Service: 01/05/23 Reason For Visit: catatonia Interim History: awake and interactive late morning. still no appetitive behaviors. per staff, no appetite. poor sleep. not attending groups. safe. anxious. thinking about his family. appeared to have slept better last night. ECT today. Mental Status Exam Mental Status Exam Narrative: Very poor self-care. lying in bed but awake and responding to verbal prompts. cooperative. mood OK. no SI/HI/AVH expressed. Insight and judgment appears limited. Diagnostics Vital Signs (24Hr): Vital Signs - 24 hr 01/04/23 20:00 01/05/23 06:03 01/05/23 06:21 Temperature 98 F 97.4 F 98.1 F Pulse Rate 56 56 73 Respiratory Rate 16 16 16 Blood Pressure 109/57 L 108/60 109/77 Pulse Oximetry 97 97 98 Oxygen Delivery Method Room Air Room Air Oxygen Flow Rate 01/05/23 08:06 01/05/23 08:11 01/05/23 08:16 Temperature 99 F Pulse Rate 81 75 79 Respiratory Rate 13 19 18 Blood Pressure 110/61 111/72 104/61 Pulse Oximetry 98 95 93 Oxygen Delivery Method Nasal Cannula with ETCO2 Nasal Cannula with ETCO2 Room Air Oxygen Flow Rate 2 2 01/05/23 08:21 01/05/23 08:36 01/05/23 09:10 Temperature 98.6 F 98.4 F Pulse Rate 72 84 72 Respiratory Rate 19 20 16 Blood Pressure 104/61 106/62 94/54 L Pulse Oximetry 93 100 98 Oxygen Delivery Method Room Air Room Air Oxygen Flow Rate BMI result Body Mass Index 21.2 Labs 12/23/22 17:51 Medications Medications Current Medications Acetaminophen (Acetaminophen 325 Mg Tablet) 650 mg PO Q6H PRN PRN Reason: Headache/Pain Mild Scale (1-3) Last Admin: 12/29/22 12:15 Dose: 650 mg Acetaminophen (Acetaminophen 325 Mg Tablet) 650 mg PO ONCE PRN PRN Reason: Pain, Mild (Pain Scale 1-3) Al Hydroxide/Mg Hydroxide (Magnesium Hydrox/Alum Hydrox 30 Ml Oral.Susp) 30 ml PO Q6H PRN PRN Reason: Heartburn/Nausea Artificial Tears (Artificial Tears 15 Ml Drops) 2 drop EYE-BOTH Q4H PRN PRN Reason: Dry Eyes Last Admin: 12/02/22 14:19 Dose: 2 drop Benzocaine (Throat Lozenge, Medicated Lozenge) 1 lozenge MUCOUS MEM Q2H PRN PRN Reason: Sore Throat Last Admin: 12/29/22 12:23 Dose: 1 lozenge Fluoxetine HCl (Fluoxetine Hcl 20 Mg Capsule) 20 mg PO DAILY [facility] Last Admin: 01/05/23 09:05 Dose: Not Given Hydroxyzine HCl (Hydroxyzine Hcl 25 Mg Tablet) 25 mg PO Q6H PRN PRN Reason: Anxiety Magnesium Hydroxide (Milk Of Magnesia 30 Ml Oral.Susp) 30 ml PO DAILY PRN PRN Reason: Constipation Ondansetron HCl (Ondansetron Hcl 4 Mg/2 Ml Vial) 4 mg IVPUSH ONCE PRN PRN Reason: Nausea and Vomiting Sodium Chloride (0.9 % Sodium Chloride Flush 10 Ml Syringe) 10 ml IVFLUSH Q8H [facility] Last Admin: 01/05/23 09:17 Dose: 10 ml Trazodone HCl (Trazodone Hcl 50 Mg Tablet) 50 mg PO BEDTIME PRN PRN Reason: Insomnia Allergies Allergies Allergy/AdvReac Type Severity Reaction Status Date / Time No Known Allergies Allergy Verified 10/31/22 14:47 Assessment & Plan Assessment & Plan (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 11/04: pt refusing meds and not taking anything PO. nevertheless appears slightly improved from yesterday, more verbal with less latency of response. advised to take meds and fluids. 11/05: ate and drank some last night. refusing meds. no longer grossly catatonic. continue current mgmt. 11/06: no PO intake in past 24H. refusing meds. parnell warning, 3-day up . 11/07: no food, had some water last night. recheck BMP. completed commitment paperwork. refusing meds. 11/08: denies eating or drinking but yesterday's breakfast tray was empty on return. commitment filed. refusing meds. 11/09: continues without PO intake, not attending to ADLs. refusing meds. hearing scheduled for next . labs from yesterday not indicative of concerning dehydration. 11/10 continue tx. more talkative, although guarded. No overt delusional content reported. denies SI/HI. 11/11: will order CMP for tomorrow morning given uncertainty ref PO intake 11/13: increase in BUN and Cr due to dehydration 11/14: continue tx. refuses medications but unable to provide explanation as to why not show understanding in terms of effects of decrease oral intake on renal function. 11/15: unchanged from last week. intermittent meals, BUN mildly elevated. court tomorrow. 11/16: court deferred for BEHZAD. no change in presentation. place on 1:1 for observation of PO intake. lying all day in bed, PMR, with shades drawn, for a darkened room. refusing medications. 11/17: DC olanzapine. offer SSRI. eating and drinking this morning, after having been put on 1:1. continue current mgmt. commitment hearing likely next . 11/18: refusing to look at or speak with MD. clearly ate and drank more yesterday, up and out of room more. nevertheless, spends vast majority of his time lying in bed in the dark. refusing meds. 11/19: ate more yesterday and last night. DC 1:1. appearing catatonic today, no eye blink staring at ceiling not responding. 11/20: moderate PO intake yesterday. appearing more catatonic today. continue to offer meds. 11/21: catatonic. no report on sleep or PO intake as pt is off 1:1. continue to offer meds. 11/22: catatonic. labs reassuring. court tomorrow. 11/23: catatonic. committed and ordered meds in court. 11/24: start ativan 2 mg TID with IM back-up for catatonia. plan to start neuroleptics and anti-depressants once catatonia improved. 11/25: decrease ativan to 1mg tid as he had no response to 2 mg and might be experiencing sedation from it 11/26: More alert on lower ativan dose but remains non-verbal and lying in bed 11/27 increase ativan back to 2mg po TID back up IM. 11/28: T/C gaining IV access to facilitate delivery of ativan; plan to increase to QID dosing. remains catatonic. case d/w nursing administration and family practice medical doct[facility]. 11/29: gain IV access today, start ativan 2 mg IV QID. was out of bed, eating and speaking yesterday evening. 11/30: 1:1 as he removed IV access, apparently. was up in kitchen getting food on evening shift. continue current mgmt. 12/01: up twice in the past 24H, ate some, swore that lights in his room had been turned on. T/C adding valium 2 mg TID IV (per court order, maximum of 8 mg ativan may be given per day) and/or antipsychotic to regimen. case D/W david. 12/02: Check comprehensive metabolic labs in AM. Continue current management. 12/03: Improved post IM dose of Zyprexa last night. Ate better. More communicative. Continue current plan of care. 12/04: some improvement over w/e. increase IM zyprexa t HS to 5 mg each. continue current mgmt. 12/05: continue current mgmt. up several times yesterday, had conversation with reza nurse, observed eating dinner. 12/06: less active yesterday. did not receive IM zyprexa last night. continue current mgmt. 12/07: received zyprexa IM last night. up for breakfast this morning, exchanged some words with MD for first time in weeks. indicated he has a depressed mood. not opposed to anti-depressant. will start prozac liquid daily. 12/08: lying in bed, not responsive. several interactions with staff yesterday, limited and often non-verbal. refused PO prozac. continue current mgmt. 12/09: still catatonic. 12/10 still catatonic 12/11/22 Patient intermittently responsive often refusing p.o. meds may require ECT 12/12/2022 Patient remains mostly electively mute intermittently catatonic with some periods of verbal discourse 12/13/22 more verbal hx of recurrent depression still gets iv ativan refuses po meds 12 14 22 Continue Ativan and intravenous is encouraged fluoxetine continue olanzapine 5 mg patient does not appear to be psychotic would encourage ECT 12/15/2022 Continue plan of care labs reviewed sodium creatinine within normal limits 12/16: Continue current regimen and plans. Switch Zyprexa to a.m. use. 12/17: Continue current regimen and plans. Decrease Ativan by 2 mg and increase Zyprexa by 10 mg 12/18: continue current regimen. no change in catatonic presentation. 12/19: return ativan to 2 mg QID and zyprexa to 10 mg QHS only. 12/20: due to possibility of akathisia from zyprexa, will try lower potency anti-psychotic, thorazine. DC zyprexa and start thorazine 100 mg PO QHS with 50 mg IM if refuses PO. 12/21: received thorazine last NOC, IM. ate dinner and spoke with EMERY cobb. generally no improvement, no change in presentation. 12/22: awake briefly this morning, endorsing depression. vague, unable to state preference for Tx. continue current mgmt. hearing scheduled for next sunday re ECT. 12/23 ck labs consider iv fluids get med clearance ect 12/24/2022 Of Thorazine discontinued has not been effective can lower blood pressure and someone already with periods of dehydration strongly would benefit from ECT trial 12/25: continue current mgmt. up briefly today to move rooms. ate 3 meals yesterday, reportedly. hearing tomorrow for ECT. 12/26: staring today, no responses. hearing held today, judgment pending. decrease ativan to 2 mg TID in anticipation of ECT. medical clearance and EKG ordered. 12/26: staring today, no responses. IV access lost, will give IM ativan until IV access regained. awaiting word from court on ECT. 12/27: medically cleared for ECT, court ordered ECT. start ECT tomorrow. case d/w david in detail. taper ativan to 4 mg today, may need flumazenil tomorrow prior to ECT. continue ativan taper over w/e. 12/29: ECT #1 completed, clear improvement in mental status and insight. continue ativan taper. ECT #2 on sunday. 12/30: took PO meds yesterday morning after ECT, refusing since. continue current mgmt. 12/31: continue ativan taper. awake and verbal today. not eating or taking meds PO. ECT #2 tomorrow. 01/01: missed morning ECT due to inability to gain IV access. U/S guided IV inserted, will go for anoon ECT. PMR, inert, lying in bed; awake, however, and able to exchange a few words. 01/02 yesterday he had a he has ECT in the evening. Slight improvement. We added a midline IV access sings we could not get an IV access on the previous ECT easily. ECT tomorrow AM. 01/03: ECT #3 completed this morning. remains more alert and responsive than prior, yet still very poor PO intake and refusing PO meds. continue current mgmt. 01/04: remains alert and interactive. still PMR, poor appetite. ECT scheduled for tomorrow. 01/05: ECT #4 completed, continues more alert and engageable than prior to start of ECT. still not doing ADLs, not eating/drinking adequately. ECT #5 on sunday. Reason for continued inpatient stay Substantial Risk for: harm to self, inability to function and rapid decompensation Time Spent With Patient Time: Total time managing care of this patient today ____ minutes.
[2023-01-05] MEDS: Acetaminophen 325 MG TABLET 650 MG PO (19:46)
[2023-01-06] MEDS: 0.9 % Sodium Chloride Flush 10 ML SYRINGE IVFLUSH ×2 (06:56→14:33)
[2023-01-06] MEDS: FLUoxetine HCl 20 MG CAPSULE PO (08:08)
[2023-01-06 08:35] VITALS: BP 131/79; PULSE 76; RESP 20; TEMP 36.9; O2SAT 98
--- NOTE | 2023-01-06 10:44 | P.PNPSI_ITS ---
Subjective Subjective Date of Service: 01/06/23 Reason For Visit: catatonia Interim History: Doing well per staff. Showered, trimmed his gallegos. He is awake and interactive this morning. Says he is doing better. Some short term memory loss reported. Says he slept. Isolative mostly. Safe on the unit. Aanxious. appeared to have slept better last night. Review of Systems Review of Systems Yes Unobtainable due to mental status Mental Status Exam Mental Status Exam Narrative: Very poor self-care. lying in bed but awake and responding to verbal prompts. cooperative. mood OK. no SI/HI/AVH expressed. Insight and judgment mahogany ears limited. Patient Appearance: Appropriate Patient Orientation: Person and Situation Level of Consciousness: Awake Patient Behavior: Passive Behavior Comments: Lying in bed. Does not respond when addressed. Not following verbal commands Mood Description: Depressed Affect Description: Blunted Patient Cognition Impaired: No Ability to Follow Directions: Fair Speech Pattern: Clear and Spontaneous Speech Diagnostics Vital Signs (24Hr): Vital Signs - 24 hr 01/05/23 20:00 01/06/23 08:35 Temperature 98 F 98.4 F Pulse Rate 91 76 Respiratory Rate 18 20 Blood Pressure 114/73 131/79 Pulse Oximetry 99 98 Oxygen Delivery Method Room Air Room Air BMI result Body Mass Index 21.2 Labs 12/23/22 17:51 Medications Medications Current Medications Acetaminophen (Acetaminophen 325 Mg Tablet) 650 mg PO Q6H PRN PRN Reason: Headache/Pain Mild Scale (1-3) Last Admin: 01/05/23 19:46 Dose: 650 mg Acetaminophen (Acetaminophen 325 Mg Tablet) 650 mg PO ONCE PRN PRN Reason: Pain, Mild (Pain Scale 1-3) Al Hydroxide/Mg Hydroxide (Magnesium Hydrox/Alum Hydrox 30 Ml Oral.Susp) 30 ml PO Q6H PRN PRN Reason: Heartburn/Nausea Artificial Tears (Artificial Tears 15 Ml Drops) 2 drop EYE-BOTH Q4H PRN PRN Reason: Dry Eyes Last Admin: 12/02/22 14:19 Dose: 2 drop Benzocaine (Throat Lozenge, Medicated Lozenge) 1 lozenge MUCOUS MEM Q2H PRN PRN Reason: Sore Throat Last Admin: 12/29/22 12:23 Dose: 1 lozenge Fluoxetine HCl (Fluoxetine Hcl 20 Mg Capsule) 20 mg PO DAILY GABRIEL Last Admin: 01/06/23 08:08 Dose: 20 mg Hydroxyzine HCl (Hydroxyzine Hcl 25 Mg Tablet) 25 mg PO Q6H PRN PRN Reason: Anxiety Magnesium Hydroxide (Milk Of Magnesia 30 Ml Oral.Susp) 30 ml PO DAILY PRN PRN Reason: Constipation Ondansetron HCl (Ondansetron Hcl 4 Mg/2 Ml Vial) 4 mg IVPUSH ONCE PRN PRN Reason: Nausea and Vomiting Sodium Chloride (0.9 % Sodium Chloride Flush 10 Ml Syringe) 10 ml IVFLUSH Q8H [facility] Last Admin: 01/06/23 06:56 Dose: 10 ml Trazodone HCl (Trazodone Hcl 50 Mg Tablet) 50 mg PO BEDTIME PRN PRN Reason: Insomnia Allergies Allergies Allergy/AdvReac Type Severity Reaction Status Date / Time No Known Allergies Allergy Verified 10/31/22 14:47 Assessment & Plan Assessment & Plan (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 11/04: pt refusing meds and not taking anything PO. nevertheless appears slightly improved from yesterday, more verbal with less latency of response. advised to take meds and fluids. 11/05: ate and drank some last night. refusing meds. no longer grossly catato ol. continue current mgmt. 11/06: no PO intake in past 24H. refusing meds. parnell warning, 3-day up . 11/07: no food, had some water last night. recheck BMP. completed commitment paperwork. refusing meds. 11/08: denies eating or drinking but yesterday's breakfast tray was empty on return. commitment filed. refusing meds. 11/09: continues without PO intake, not attending to ADLs. refusing meds. hearing scheduled for next . labs from yesterday not indicative of concerning dehydration. 11/10 continue tx. more talkative, although guarded. No overt delusional content reported. denies SI/HI. 11/11: will order CMP for tomorrow morning given uncertainty ref PO intake 11/13: increase in BUN and Cr due to dehydration 11/14: continue tx. refuses medications but unable to provide explanation as to why not show understanding in terms of effects of decrease oral intake on renal function. 11/15: unchanged from last week. intermittent meals, BUN mildly elevated. court tomorrow. 11/16: court deferred for BEHZAD. no change in presentation. place on 1:1 for observation of PO intake. lying all day in bed, PMR, with shades drawn, for a darkened room. refusing medications. 11/17: DC olanzapine. offer SSRI. eating and drinking this morning, after having been put on 1:1. continue current mgmt. commitment hearing likely next . 11/18: refusing to look at or speak with MD. clearly ate and drank more yesterday, up and out of room more. nevertheless, spends vast majority of his time lying in bed in the dark. refusing meds. 11/19: ate more yesterday and last night. DC 1:1. appearing catatonic today, no eye blink staring at ceiling not responding. 11/20: moderate PO intake yesterday. appearing more catatonic today. continue to offer meds. 11/21: catatonic. no report on sleep or PO intake as pt is off 1:1. continue to offer meds. 11/22: catatonic. labs reassuring. court tomorrow. 11/23: catatonic. committed and ordered meds in court. 11/24: start ativan 2 mg TID with IM back-up for catatonia. plan to start neuroleptics and anti-depressants once catatonia improved. 11/25: decrease ativan to 1mg tid as he had no response to 2 mg and might be experiencing sedation from it 11/26: More alert on lower ativan dose but remains non-verbal and lying in bed 11/27 increase ativan back to 2mg po TID back up IM. 11/28: T/C gaining IV access to facilitate delivery of ativan; plan to increase to QID dosing. remains catatonic. case d/w nursing administration and medical secretarysenior director marketing. 11/29: gain IV access today, start ativan 2 mg IV QID. was out of bed, eating and speaking yesterday evening. 11/30: 1:1 as he removed IV access, apparently. was up in kitchen getting food on evening shift. continue current mgmt. 12/01: up twice in the past 24H, ate some, swore that lights in his room had been turned on. T/C adding valium 2 mg TID IV (per court order, maximum of 8 mg ativan may be given per day) and/or antipsychotic to regimen. case D/W david. 12/02: Check comprehensive metabolic labs in AM. Continue current management. 12/03: Improved post IM dose of Zyprexa last night. Ate better. More communicative. Continue current plan of care. 12/04: some improvement over w/e. increase IM zyprexa t HS to 5 mg each. continue current mgmt. 12/05: continue current mgmt. up several times yesterday, had conversation with reza nurse, observed eating dinner. 12/06: less active yesterday. did not receive IM zyprexa last night. continue current mgmt. 12/07: received zyprexa IM last night. up for breakfast this morning, exchanged some words with MD for first time in weeks. indicated he has a depressed mood. not opposed to anti-depressant. will start prozac liquid daily. 12/08: lying in bed, not responsive. several interactions with staff yesterday, limited and often non-verbal. refused PO prozac. continue current mgmt. 12/09: still catatonic. 12/10 still catatonic 12/11/22 Patient intermittently responsive often refusing p.o. meds may require ECT 12/12/2022 Patient remains mostly electively mute intermittently catatonic with some perio ds of verbal discourse 12/13/22 more verbal hx of recurrent depression still gets iv ativan refuses po meds 12 14 22 Continue Ativan and intravenous is encouraged fluoxetine continue olanzapine 5 mg patient does not appear to be psychotic would encourage ECT 12/15/2022 Continue plan of care labs reviewed sodium creatinine within normal limits 12/16: Continue current regimen and plans. Switch Zyprexa to a.m. use. 12/17: Continue current regimen and plans. Decrease Ativan by 2 mg and increase Zyprexa by 10 mg 12/18: continue current regimen. no change in catatonic presentation. 12/19: return ativan to 2 mg QID and zyprexa to 10 mg QHS only. 12/20: due to possibility of akathisia from zyprexa, will try lower potency anti- psychotic, thorazine. DC zyprexa and start thorazine 100 mg PO QHS with 50 mg IM if refuses PO. 12/21: received thorazine last NOC, IM. ate dinner and spoke with EMERY cobb. generally no improvement, no change in presentation. 12/22: awake briefly this morning, endorsing depression. vague, unable to state preference for Tx. continue current mgmt. hearing scheduled for next sunday re ECT. 12/23 ck labs consider iv fluids get med clearance ect 12/24/2022 Of Thorazine discontinued has not been effective can lower blood pressure and someone already with periods of dehydration strongly would benefit from ECT trial 12/25: continue current mgmt. up briefly today to move rooms. ate 3 meals yesterday, reportedly. hearing tomorrow for ECT. 12/26: staring today, no responses. hearing held today, judgment pending. decrease ativan to 2 mg TID in anticipation of ECT. medical clearance and EKG ordered. 12/26: staring today, no responses. IV access lost, will give IM ativan until IV access regained. awaiting word from court on ECT. 12/27: medically cleared for ECT, court ordered ECT. start ECT tomorrow. case d/w david in detail. taper ativan to 4 mg today, may need flumazenil tomorrow prior to ECT. continue ativan taper over w/e. 12/29: ECT #1 completed, clear improvement in mental status and insight. continue ativan taper. ECT #2 on sunday. 12/30: took PO meds yesterday morning after ECT, refusing since. continue current mgmt. 12/31: continue ativan taper. awake and verbal today. not eating or taking meds PO. ECT #2 tomorrow. 01/01: missed morning ECT due to inability to gain IV access. U/S guided IV inserted, will go for anoon ECT. PMR, inert, lying in bed; awake, however, and able to exchange a few words. 01/02 yesterday he had a he has ECT in the evening. Slight improvement. We added a midline IV access sings we could not get an IV access on the previous ECT easily. ECT tomorrow AM. 01/03: ECT #3 completed this morning. remains more alert and responsive than prior, yet still very poor PO intake and refusing PO meds. continue current mgmt. 01/04: remains alert and interactive. still PMR, poor appetite. ECT scheduled for tomorrow. 01/05: ECT #4 completed, continues more alert and engageable than prior to start of ECT. still not doing ADLs, not eating/drinking adequately. ECT #5 on sunday. 01/06: ECT #6 Sunday. Improved (known to this medical technical writer from interaction over a month ago.). Continue current treatment plan. Reason for continued inpatient stay Substantial Risk for: harm to self, inability to function and rapid decompensation Time Spent With Patient Time: Total time managing care of this patient today ____ minutes.
[2023-01-06] MEDS: hydrOXYzine HCL 25 MG TABLET PO (15:53)
[2023-01-06 19:50] VITALS: BP 107/55; PULSE 73; RESP 16; TEMP 36.6; O2SAT 96
[2023-01-07] MEDS: 0.9 % Sodium Chloride Flush 10 ML SYRINGE IVFLUSH ×4 (00:19→22:41)
[2023-01-07] MEDS: FLUoxetine HCl 20 MG CAPSULE PO (08:08)
[2023-01-07 08:37] VITALS: BP 120/76; PULSE 75; RESP 20; TEMP 36.3; O2SAT 98
--- NOTE | 2023-01-07 11:08 | P.PNPSI_ITS ---
Subjective Subjective Date of Service: 01/07/23 Reason For Visit: catatonia Interim History: Doing well per staff. Showered yesterday. He is awake and interactive this morning. Says he is doing better. Some short term memory loss reported. Says he slept. More visible. Safe on the unit. ECT #5 tomorrow. Review of Systems Review of Systems Yes Unobtainable due to mental status Mental Status Exam Mental Status Exam Narrative: Very poor self-care. lying in bed but awake and responding to verbal prompts. cooperative. mood OK. no SI/HI/AVH expressed. Insight and judgment appears limited. Patient Appearance: Appropriate Patient Orientation: Person and Situation Level of Consciousness: Awake Patient Behavior: Passive Behavior Comments: Lying in bed. Does not respond when addressed. Not following verbal commands Mood Description: Depressed Affect Description: Blunted Patient Cognition Impaired: No Ability to Follow Directions: Fair Speech Pattern: Clear and Spontaneous Speech Diagnostics Vital Signs (24Hr): Vital Signs - 24 hr 01/06/23 19:50 01/07/23 08:37 Temperature 98 F 97.3 F Pulse Rate 73 75 Respiratory Rate 16 20 Blood Pressure 107/55 L 120/76 Pulse Oximetry 96 98 Oxygen Delivery Method Room Air Room Air BMI result Body Mass Index 21.2 Labs 12/23/22 17:51 Medications Medications Current Medications Acetaminophen (Acetaminophen 325 Mg Tablet) 650 mg PO Q6H PRN PRN Reason: Headache/Pain Mild Scale (1-3) Last Admin: 01/05/23 19:46 Dose: 650 mg Acetaminophen (Acetaminophen 325 Mg Tablet) 650 mg PO ONCE PRN PRN Reason: Pain, Mild (Pain Scale 1-3) Al Hydroxide/Mg Hydroxide (Magnesium Hydrox/Alum Hydrox 30 Ml Oral.Susp) 30 ml PO Q6H PRN PRN Reason: Heartburn/Nausea Artificial Tears (Artificial Tears 15 Ml Drops) 2 drop EYE-BOTH Q4H PRN PRN Reason: Dry Eyes Last Admin: 12/02/22 14:19 Dose: 2 drop Benzocaine (Throat Lozenge, Medicated Lozenge) 1 lozenge MUCOUS MEM Q2H PRN PRN Reason: Sore Throat Last Admin: 12/29/22 12:23 Dose: 1 lozenge Fluoxetine HCl (Fluoxetine Hcl 20 Mg Capsule) 20 mg PO DAILY GABRIEL Last Admin: 01/07/23 08:08 Dose: 20 mg Hydroxyzine HCl (Hydroxyzine Hcl 25 Mg Tablet) 25 mg PO Q6H PRN PRN Reason: Anxiety Last Admin: 01/06/23 15:53 Dose: 25 mg Magnesium Hydroxide (Milk Of Magnesia 30 Ml Oral.Susp) 30 ml PO DAILY PRN PRN Reason: Constipation Ondansetron HCl (Ondansetron Hcl 4 Mg/2 Ml Vial) 4 mg IVPUSH ONCE PRN PRN Reason: Nausea and Vomiting Sodium Chloride (0.9 % Sodium Chloride Flush 10 Ml Syringe) 10 ml IVFLUSH Q8H GABRIEL Last Admin: 01/07/23 06:53 Dose: 10 ml Trazodone HCl (Trazodone Hcl 50 Mg Tablet) 50 mg PO BEDTIME PRN PRN Reason: Insomnia Allergies Allergies Allergy/AdvReac Type Severity Reaction Status Date / Time No Known Allergies Allergy Verified 10/31/22 14:47 Assessment & Plan Assessment & Plan (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 11/04: pt refusing meds and not taking anything PO. nevertheless appears slightly improved from yesterday, more verbal with less latency of response. advised to take meds and fluids. 11/05: ate and drank some last night. refusing meds. no longer grossly catatonic. continue current mgmt. 11/06: no PO intake in past 24H. refusing meds. parnell warning, 3-day up . 11/07: no food, had some water last night. recheck BMP. completed commitment paperwork. refusing meds. 11/08: denies eating or drinking but yesterday's breakfast tray was empty on return. commitment filed. refusing meds. 11/09: continues without PO intake, not attending to ADLs. refusing meds. hearing scheduled for next . labs from yesterday not indicative of concerning dehydration. 11/10 continue tx. more talkative, although guarded. No overt delusional content reported. denies SI/HI. 11/11: will order CMP for tomorrow morning given uncertainty ref PO intake 11/13: increase in BUN and Cr due to dehydration 11/14: continue tx. refuses medications but unable to provide explanation as to why not show understanding in terms of effects of decrease oral intake on renal function. 11/15: unchanged from last week. intermittent meals, BUN mildly elevated. court tomorrow. 11/16: court deferred for BEHZAD. no change in presentation. place on 1:1 for observation of PO intake. lying all day in bed, PMR, with shades drawn, for a darkened room. refusing medications. 11/17: DC olanzapine. offer SSRI. eating and drinking this morning, after having been put on 1:1. continue current mgmt. commitment hearing likely next . 11/18: refusing to look at or speak with MD. clearly ate and drank more yesterday, up and out of room more. nevertheless, spends vast majority of his time lying in bed in the dark. refusing meds. 11/19: ate more yesterday and last night. DC 1:1. appearing catatonic today, no eye blink staring at ceiling not responding. 11/20: moderate PO intake yesterday. appearing more catatonic today. continue to offer meds. 11/21: catatonic. no report on sleep or PO intake as pt is off 1:1. continue to offer meds. 11/22: catatonic. labs reassuring. court tomorrow. 11/23: catatonic. committed and ordered meds in court. 11/24: start ativan 2 mg TID with IM back-up for catatonia. plan to start neuroleptics and anti-depressants once catatonia improved. 11/25: decrease ativan to 1mg tid as he had no response to 2 mg and might be experiencing sedation from it 11/26: More alert on lower ativan dose but remains non-verbal and lying in bed 11/27 increase ativan back to 2mg po TID back up IM. 11/28: T/C gaining IV access to facilitate delivery of ativan; plan to increase to QID dosing. remains catatonic. case d/w nursing administration and medical affairs specialistmedia services director. 11/29: gain IV access today, start ativan 2 mg IV QID. was out of bed, eating and speaking yesterday evening. 11/30: 1:1 as he removed IV access, apparently. was up in kitchen getting food on evening shift. continue current mgmt. 12/01: up twice in the past 24H, ate some, swore that lights in his room had been turned on. T/C adding valium 2 mg TID IV (per court order, maximum of 8 mg ativan may be given per day) and/or antipsychotic to regimen. case D/W david. 12/02: Check comprehensive metabolic labs in AM. Continue current management. 12/03: Improved post IM dose of Zyprexa last night. Ate better. More communicative. Continue current plan of care. 12/04: some improvement over w/e. increase IM zyprexa t HS to 5 mg each. continue current mgmt. 12/05: continue current mgmt. up several times yesterday, had conversation with reza nurse, observed eating dinner. 12/06: less active yesterday. did not receive IM zyprexa last night. continue current mgmt. 12/07: received zyprexa IM last night. up for breakfast this morning, exchanged some words with MD for first time in weeks. indicated he has a depressed mood. not opposed to anti-depressant. will start prozac liquid daily. 12/08: lying in bed, not responsive. several interactions with staff yesterday, limited and often non-verbal. refused PO prozac. continue current mgmt. 12/09: still catatonic. 12/10 still catatonic 12/11/22 Patient intermittently responsive often refusing p.o. meds may require ECT 12/12/2022 Patient remains mostly electively mute intermittently catatonic with some periods of verbal discourse 12/13/22 more verbal hx of recurrent depression still gets iv ativan refuses po meds 12 14 22 Continue Ativan and intravenous is encouraged fluoxetine continue olanzapine 5 mg patient does not appear to be psychotic would encourage ECT 12/15/2022 Continue plan of care labs reviewed sodium creatinine within normal limits 12/16: Continue current regimen and plans. Switch Zyprexa to a.m. use. 12/17: Continue current regimen and plans. Decrease Ativan by 2 mg and increase Zyprexa by 10 mg 12/18: continue current regimen. no change in catatonic presentation. 12/19: return ativan to 2 mg QID and zyprexa to 10 mg QHS only. 12/20: due to possibility of akathisia from zyprexa, will try lower potency anti- psychotic, thorazine. DC zyprexa and start thorazine 100 mg PO QHS with 50 mg IM if refuses PO. 12/21: received thorazine last NOC, IM. ate dinner and spoke with EMERY cobb. generally no improvement, no change in presentation. 12/22: awake briefly this morning, endorsing depression. vague, unable to state preference for Tx. continue current mgmt. hearing scheduled for next sunday re ECT. 12/23 ck labs consider iv fluids get med clearance ect 12/24/2022 Of Thorazine discontinued has not been effective can lower blood pressure and someone already with periods of dehydration strongly would benefit from ECT trial 12/25: continue current mgmt. up briefly today to move rooms. ate 3 meals yesterday, reportedly. hearing tomorrow for ECT. 12/26: staring today, no responses. hearing held today, judgment pending. decrease ativan to 2 mg TID in anticipation of ECT. medical clearance and EKG ordered. 12/26: staring today, no responses. IV access lost, will give IM ativan until IV access regained. awaiting word from court on ECT. 12/27: medically cleared for ECT, court ordered ECT. start ECT tomorrow. case d/w david in detail. taper ativan to 4 mg today, may need flumazenil tomorrow prior to ECT. continue ativan taper over w/e. 12/29: ECT #1 completed, clear improvement in mental status and insight. continue ativan taper. ECT #2 on sunday. 12/30: took PO meds yesterday morning after ECT, refusing since. continue current mgmt. 12/31: continue ativan taper. awake and verbal today. not eating or taking meds PO. ECT #2 tomorrow. 01/01: missed morning ECT due to inability to gain IV access. U/S guided IV inserted, will go for anoon ECT. PMR, inert, lying in bed; awake, however, and able to exchange a few words. 01/02 yesterday he had a he has ECT in the evening. Slight improvement. We added a midline IV access sings we could not get an IV access on the previous ECT easily. ECT tomorrow AM. 01/03: ECT #3 completed this morning. remains more alert and responsive than prior, yet still very poor PO intake and refusing PO meds. continue current mgmt. 01/04: remains alert and interactive. still PMR, poor appetite. ECT scheduled for tomorrow. 01/05: ECT #4 completed, continues more alert and engageable than prior to start of ECT. still not doing ADLs, not eating/drinking adequately. ECT #5 on sunday. 01/06: ECT #5 Sunday. Improved (known to this underwriter mortgage loan from interaction over a month ago.). Continue current treatment plan. 01/07: Continue current management. Reason for continued inpatient stay Substantial Risk for: inability to function and rapid decompensation Time Spent With Patient Time: Total time managing care of this patient today ____ minutes.
--- NOTE | 2023-01-07 15:06 | PC.NURSE ---
Patient was visible this shift eating meals with peers and watching TV with short naps throughout the day. Pt reporting, I have gaps in time I don't remember. Pt stated to TW , I was really out of it huh? you know I was with God, I really was. Pt then said, you know theres really never been someone in hell. I had to play to a game with God to stay out of hell for something I did when I was 10 y/o. I couldn't shave my gallegos or move, that's why I was stuck, I don't want to got to hell. Pt said theres a lot more I'll tell you some time, but not right now. Pt was calm throughout the conversation with animated affect.
[2023-01-07 20:30] VITALS: BP 132/82; PULSE 90; TEMP 37; O2SAT 96
[2023-01-08] VITALS (9 sets, daily range): BP systolic 98–126; BP diastolic 52–82; PULSE 72–83; RESP 12–18; TEMP 36.2–37.6; O2SAT 94–100; BMI 21.2
[2023-01-08] MEDS: 0.9 % Sodium Chloride Flush 10 ML SYRINGE IVFLUSH ×3 (06:08→23:00)
[2023-01-08] MEDS: Lactated Ringers 1,000 ML 50 ML IVCONT (07:30)
--- NOTE | 2023-01-08 07:31 | MHC.SHP ---
Pre-Procedural Eval Section A Date of Service: 01/08/23 The patient is an INPATIENT: Yes Changes since office visit: Yes Changes in Medication and Yes Patient answered all questions; No Cold of Flu in the past 2 weeks and No New Medical Problems The History & Physical has been completed within 30 days and I have reviewed it.: Yes Section B Chief Complaint: catatonia Allergies: Allergies Allergy/AdvReac Type Severity Reaction Status Date / Time No Known Allergies Allergy Verified 10/31/22 14:47 Plan I have reviewed the history and physical and performed a pertinent physical examination on my patient. No changes have occurred unless specified. Time Spent With Patient Time: Total time managing care of this patient today ____ minutes.
--- NOTE | 2023-01-08 07:31 | HO.ANESPROP2 ---
[facility] Active Problems Active Problems: All Active Problems (Updated 11/11/22 @ 00:11 by Background Niaelodia) Catatonia (Acute) Cocaine use disorder, mild, in early remission (Acute) Mood disorder (Acute) Cocaine use disorder (Acute) Depression (Acute) Anorexia (Acute) Past Medical History Medical History Cocaine use disorder Family History Family history of problems with anesthesia: No Surgical History History of Problems with Anesthesia: No Social History Social History Household Members: None Housing: Other Housing Other:: TSS Unable to assess alcohol history related to: Refusing to respond Patient Tobacco Use Status: Never used Tobacco Second Hand Smoke Exposure: No Use of substances other than those prescribed or required for medical reasons: No Currently Displaying Signs/Symptoms of Drug Intoxication Withdrawal: No Have you been hit, kicked, punched, or otherwise hurt by someone within the past year? If so, by whom?: No Do you feel safe in your current relationship?: No Current Relationship Is there a partner from a previous relationship who is making you feel unsafe now?: No Are you made to feel afraid or neglected: No Are you DNR?: No Advance Directives: No Advance Directives Information Provided: Yes Advance Directives on File: No Do you have thoughts of harming others: None Do you have a plan to hurt others: No Plan Recently lost weight without trying: Unsure Nutrition Risks: No Nutritional Risk service: No Sexual orientation: Decline to Answer Meds Allergies Allergy/AdvReac Type Severity Reaction Status Date / Time No Known Allergies Allergy Verified 10/31/22 14:47 Active Medications: Current Medications Acetaminophen (Acetaminophen 325 Mg Tablet) 650 mg PO Q6H PRN PRN Reason: Headache/Pain Mild Scale (1-3) Last Admin: 01/05/23 19:46 Dose: 650 mg Acetaminophen (Acetaminophen 325 Mg Tablet) 650 mg PO ONCE PRN PRN Reason: Pain, Mild (Pain Scale 1-3) Al Hydroxide/Mg Hydroxide (Magnesium Hydrox/Alum Hydrox 30 Ml Oral.Susp) 30 ml PO Q6H PRN PRN Reason: Heartburn/Nausea Artificial Tears (Artificial Tears 15 Ml Drops) 2 drop EYE-BOTH Q4H PRN PRN Reason: Dry Eyes Last Admin: 12/02/22 14:19 Dose: 2 drop Benzocaine (Throat Lozenge, Medicated Lozenge) 1 lozenge MUCOUS MEM Q2H PRN PRN Reason: Sore Throat Last Admin: 12/29/22 12:23 Dose: 1 lozenge Fluoxetine HCl (Fluoxetine Hcl 20 Mg Capsule) 20 mg PO DAILY [facility] Last Admin: 01/07/23 08:08 Dose: 20 mg Hydroxyzine HCl (Hydroxyzine Hcl 25 Mg Tablet) 25 mg PO Q6H PRN PRN Reason: Anxiety Last Admin: 01/06/23 15:53 Dose: 25 mg Lactated Ringer's (Lr) 1,000 mls @ 50 mls/hr IVCONT .Q20H [facility] Magnesium Hydroxide (Milk Of Magnesia 30 Ml Oral.Susp) 30 ml PO DAILY PRN PRN Reason: Constipation Ondansetron HCl (Ondansetron Hcl 4 Mg/2 Ml Vial) 4 mg IVPUSH ONCE PRN PRN Reason: Nausea and Vomiting Sodium Chloride (0.9 % Sodium Chloride Flush 10 Ml Syringe) 10 ml IVFLUSH Q8H [facility] Last Admin: 01/08/23 06:08 Dose: 10 ml Trazodone HCl (Trazodone Hcl 50 Mg Tablet) 50 mg PO BEDTIME PRN PRN Reason: Insomnia Home Medications Medication Instructions Recorded Confirmed Last Taken Type No Known Home Meds 10/31/22 11/04/22 Unknown History Exam Exam Date and Time: January 08, 2023 0731 Height,Weight and Vital Signs: Height 6 ft Weight 70.76 kg Last Vital Signs Temp 98.5 F 01/08/23 06:31 Pulse 80 01/08/23 06:31 Resp 12 01/08/23 06:31 BP 122/82 01/08/23 06:31 Pulse Ox 100 01/08/23 06:31 O2 Del Method Room Air 01/08/23 06:31 O2 Flow Rate 2 01/05/23 08:11 Pertinent Lab Results Pertinent Lab Results: Laboratory Tests 11/03/22 11/05/22 11/08/22 15:48 12:58 15:07 Sodium 142 140 Potassium 4.1 D 4.1 Chloride 108 105 Carbon Dioxide 26 28 Anion Gap 12 11 L BUN 23 H 15 Creatinine 0.73 0.83 0.72 Estim Creat Clear Calc TNP TNP TNP Estimated GFR > 60 > 60 > 60 Random Glucose 97 95 Calcium 9.1 9.7 D Total Bilirubin AST ALT Alkaline Phosphatase Total Protein Albumin 11/13/22 11/16/22 11/22/22 08:00 08:11 11:55 Sodium 140 138 137 Potassium 4.8 4.9 4.5 Chloride 103 106 106 Carbon Dioxide 22 22 25 Anion Gap 20 15 11 L BUN 25 H 16 16 Creatinine 1.07 0.97 0.86 Estim Creat Clear Calc TNP TNP TNP Estimated GFR > 60 > 60 > 60 Random Glucose 73 89 93 Calcium 10.0 9.6 9.9 Total Bilirubin 0.9 0.9 AST 21 22 ALT 16 15 Alkaline Phosphatase 62 59 Total Protein 7.1 6.8 Albumin 4.0 3.6 12/03/22 12/15/22 12/23/22 07:45 09:53 17:51 Sodium 139 139 139 Potassium 4.8 4.3 4.2 Chloride 107 106 104 Carbon Dioxide 24 23 23 Anion Gap 13 14 16 BUN 13 11 11 Creatinine 0.73 0.74 0.77 Estim Creat Clear Calc TNP TNP TNP Estimated GFR > 60 > 60 > 60 Random Glucose 103 86 79 Calcium 9.3 D 9.3 9.8 Total Bilirubin 0.5 0.7 0.8 AST 25 18 24 ALT 20 16 16 Alkaline Phosphatase 47 55 68 Total Protein 6.4 L 6.5 7.1 Albumin 3.5 3.6 4.0 Airway Mallampati Class: II TM Dist: >3cm Neck ROM: Full Heart: rrr Lungs: cta Assessment and Plan Assessment Anesthesia Assessment: Anesthesia Plan Discussed and Chart Reviewed Final Anesthetic Review Family History of Problems with Anesthesia: No History of Problems with Anesthesia: No NPO: Yes ASA Class: III Final Preanesthetic Review: No Changes in Pt Med Stat, Meds/Allgs Chart Reviewed and Consent Obtained/Reviewed Patient Risk: Intermediate Procedure Risk: Intermediate Anesthetic Plan Anesthetic Plan: GA Disposition: Standard PACU
--- NOTE | 2023-01-08 07:32 | HO.ECTPROC ---
ECT Procedure Note Diagnosis/Treatment Date of Service: 01/08/23 Diagnosis: Catatonia Previous ECT Date: 01/03/23 Current Treatment Number: 5 Treatment: Series Interval Clinical Notes: The patient is more awake, alert much corona range of affect Time: Total time managing care of this patient today ____ minutes. ECT Settings Device: THYMATRON DGx Electrode Placement: Bitemporal Program/Pulse Width: 0.50 Energy Percent: 100 Seizure Duration By EEG (in seconds): 38 Medications Administration General Anesthetic: Etomidate (16) Muscle Relaxant: Succinylcholine (100) Ancillary Medications Analgesics: Torodol - Pre ECT Anti-emetics: Zofran - Pre ECT Cardiovascular Medications: Glycopyrrolate (Given post for bradycardia did not elicit a tachycardia) Airway Management Airway Management: Bag Mask Ventilation Treatment Recommendations No Changes Recommended: No change Pt Tolerated Procedure w/o Issue: Yes
[2023-01-08] MEDS: FLUoxetine HCl 20 MG CAPSULE PO (08:48)
--- NOTE | 2023-01-08 12:52 | HO.PSYCHPN ---
Subjective Subjective Date of Service: 01/08/23 Reason For Visit: catatonia Interim History: awake lying in bed. gallegos trimmed. mood and appetite improved. per staff, pacing, friendly. watching TV. speaking with staff. reporting 6/10 depression. sleeping and eating - ate 3 meals yesterday. not attending groups. Mental Status Exam Mental Status Exam Narrative: improving self-care. lying in bed but awake and responding to verbal prompts. cooperative. mood better. no SI/HI/AVH expressed. Insight and judgment appears limited. Diagnostics Vital Signs (24Hr): Vital Signs - 24 hr 01/07/23 20:30 01/08/23 06:07 01/08/23 06:31 Temperature 98.6 F 98.1 F 98.5 F Pulse Rate 90 77 80 Respiratory Rate 12 Blood Pressure 132/82 125/80 122/82 Pulse Oximetry 96 100 100 Oxygen Delivery Method Room Air Room Air Oxygen Flow Rate 01/08/23 07:49 01/08/23 07:54 01/08/23 07:59 Temperature 99.3 F Pulse Rate 78 83 80 Respiratory Rate 16 16 16 Blood Pressure 126/70 98/73 101/60 Pulse Oximetry 94 97 97 Oxygen Delivery Method Nasal Cannula Nasal Cannula Nasal Cannula Oxygen Flow Rate 2 2 2 01/08/23 08:04 01/08/23 08:19 01/08/23 08:47 Temperature 99.6 F 97.2 F Pulse Rate 80 77 72 Respiratory Rate 16 16 18 Blood Pressure 103/65 113/69 110/76 Pulse Oximetry 97 98 96 Oxygen Delivery Method Nasal Cannula Room Air Oxygen Flow Rate 2 BMI result Body Mass Index 21.2 Labs 12/23/22 17:51 Medications Medications Current Medications Acetaminophen (Acetaminophen 325 Mg Tablet) 650 mg PO Q6H PRN PRN Reason: Headache/Pain Mild Scale (1-3) Last Admin: 01/05/23 19:46 Dose: 650 mg Acetaminophen (Acetaminophen 325 Mg Tablet) 650 mg PO ONCE PRN PRN Reason: Pain, Mild (Pain Scale 1-3) Al Hydroxide/Mg Hydroxide (Magnesium Hydrox/Alum Hydrox 30 Ml Oral.Susp) 30 ml PO Q6H PRN PRN Reason: Heartburn/Nausea Artificial Tears (Artificial Tears 15 Ml Drops) 2 drop EYE-BOTH Q4H PRN PRN Reason: Dry Eyes Last Admin: 12/02/22 14:19 Dose: 2 drop Benzocaine (Throat Lozenge, Medicated Lozenge) 1 lozenge MUCOUS MEM Q2H PRN PRN Reason: Sore Throat Last Admin: 12/29/22 12:23 Dose: 1 lozenge Fluoxetine HCl (Fluoxetine Hcl 20 Mg Capsule) 20 mg PO DAILY [facility] Last Admin: 01/08/23 08:48 Dose: 20 mg Hydroxyzine HCl (Hydroxyzine Hcl 25 Mg Tablet) 25 mg PO Q6H PRN PRN Reason: Anxiety Last Admin: 01/06/23 15:53 Dose: 25 mg Magnesium Hydroxide (Milk Of Magnesia 30 Ml Oral.Susp) 30 ml PO DAILY PRN PRN Reason: Constipation Ondansetron HCl (Ondansetron Hcl 4 Mg/2 Ml Vial) 4 mg IVPUSH ONCE PRN PRN Reason: Nausea and Vomiting Sodium Chloride (0.9 % Sodium Chloride Flush 10 Ml Syringe) 10 ml IVFLUSH Q8H [facility] Last Admin: 01/08/23 06:08 Dose: 10 ml Trazodone HCl (Trazodone Hcl 50 Mg Tablet) 50 mg PO BEDTIME PRN PRN Reason: Insomnia Allergies Allergies Allergy/AdvReac Type Severity Reaction Status Date / Time No Known Allergies Allergy Verified 10/31/22 14:47 Assessment & Plan Assessment & Plan (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 11/04: pt refusing meds and not taking anything PO. nevertheless appears slightly improved from yesterday, more verbal with less latency of response. advised to take meds and fluids. 11/05: ate and drank some last night. refusing meds. no longer grossly catatonic. continue current mgmt. 11/06: no PO intake in past 24H. refusing meds. parnell warning, 3-day up wed. 11/07: no food, had some water last night. recheck BMP. completed commitment paperwork. refusing meds. 11/08: denies eating or drinking but yesterday's breakfast tray was empty on return. commitment filed. refusing meds. 11/09: continues without PO intake, not attending to ADLs. refusing meds. hearing scheduled for next . labs from yesterday not indicative of concerning dehydration. 11/10 continue tx. more talkative, although guarded. No overt delusional content reported. denies SI/HI. 11/11: will order CMP for tomorrow morning given uncertainty ref PO intake 11/13: increase in BUN and Cr due to dehydration 11/14: continue tx. refuses medications but unable to provide explanation as to why not show understanding in terms of effects of decrease oral intake on renal function. 11/15: unchanged from last week. intermittent meals, BUN mildly elevated. court tomorrow. 11/16: court deferred for BEHZAD. no change in presentation. place on 1:1 for observation of PO intake. lying all day in bed, PMR, with shades drawn, for a darkened room. refusing medications. 11/17: DC olanzapine. offer SSRI. eating and drinking this morning, after having been put on 1:1. continue current mgmt. commitment hearing likely next . 11/18: refusing to look at or speak with MD. clearly ate and drank more yesterday, up and out of room more. nevertheless, spends vast majority of his time lying in bed in the dark. refusing meds. 11/19: ate more yesterday and last night. DC 1:1. appearing catatonic today, no eye blink staring at ceiling not responding. 11/20: moderate PO intake yesterday. appearing more catatonic today. continue to offer meds. 11/21: catatonic. no report on sleep or PO intake as pt is off 1:1. continue to offer meds. 11/22: catatonic. labs reassuring. court tomorrow. 11/23: catatonic. committed and ordered meds in court. 11/24: start ativan 2 mg TID with IM back-up for catatonia. plan to start neuroleptics and anti-depressants once catatonia improved. 11/25: decrease ativan to 1mg tid as he had no response to 2 mg and might be experiencing sedation from it 11/26: More alert on lower ativan dose but remains non-verbal and lying in bed 11/27 increase ativan back to 2mg po TID back up IM. 11/28: T/C gaining IV access to facilitate delivery of ativan; plan to increase to QID dosing. remains catatonic. case d/w nursing administration and senior medical transcriptionistunderwriting director. 11/29: gain IV access today, start ativan 2 mg IV QID. was out of bed, eating and speaking yesterday evening. 11/30: 1:1 as he removed IV access, apparently. was up in kitchen getting food on evening shift. continue current mgmt. 12/01: up twice in the past 24H, ate some, swore that lights in his room had been turned on. T/C adding valium 2 mg TID IV (per court order, maximum of 8 mg ativan may be given per day) and/or antipsychotic to regimen. case D/W david. 12/02: Check comprehensive metabolic labs in AM. Continue current management. 12/03: Improved post IM dose of Zyprexa last night. Ate better. More communicative. Continue current plan of care. 12/04: some improvement over w/e. increase IM zyprexa t HS to 5 mg each. continue current mgmt. 12/05: continue current mgmt. up several times yesterday, had conversation with reza nurse, observed eating dinner. 12/06: less active yesterday. did not receive IM zyprexa last night. continue current mgmt. 12/07: received zyprexa IM last night. up for breakfast this morning, exchanged some words with MD for first time in weeks. indicated he has a depressed mood. not opposed to anti-depressant. will start prozac liquid daily. 12/08: lying in bed, not responsive. several interactions with staff yesterday, limited and often non-verbal. refused PO prozac. continue current mgmt. 12/09: still catatonic. 12/10 still catatonic 12/11/22 Patient intermittently responsive often refusing p.o. meds may require ECT 12/12/2022 Patient remains mostly electively mute intermittently catatonic with some periods of verbal discourse 12/13/22 more verbal hx of recurrent depression still gets iv ativan refuses po meds 8 23 Continue Ativan and intravenous is encouraged fluoxetine continue olanzapine 5 mg patient does not appear to be psychotic would encourage ECT 12/15/2022 Continue plan of care labs reviewed sodium creatinine within normal limits 12/16: Continue current regimen and plans. Switch Zyprexa to a.m. use. 12/17: Continue current regimen and plans. Decrease Ativan by 2 mg and increase Zyprexa by 10 mg 12/18: continue current regimen. no change in catatonic presentation. 12/19: return ativan to 2 mg QID and zyprexa to 10 mg QHS only. 12/20: due to possibility of akathisia from zyprexa, will try lower potency anti-psychotic, thorazine. DC zyprexa and start thorazine 100 mg PO QHS with 50 mg IM if refuses PO. 12/21: received thorazine last NOC, IM. ate dinner and spoke with EMERY cobb. generally no improvement, no change in presentation. 12/22: awake briefly this morning, endorsing depression. vague, unable to state preference for Tx. continue current mgmt. hearing scheduled for next sunday re ECT. 12/23 ck labs consider iv fluids get med clearance ect 12/24/2022 Of Thorazine discontinued has not been effective can lower blood pressure and someone already with periods of dehydration strongly would benefit from ECT trial 12/25: continue current mgmt. up briefly today to move rooms. ate 3 meals yesterday, reportedly. hearing tomorrow for ECT. 12/26: staring today, no responses. hearing held today, judgment pending. decrease ativan to 2 mg TID in anticipation of ECT. medical clearance and EKG ordered. 12/26: staring today, no responses. IV access lost, will give IM ativan until IV access regained. awaiting word from court on ECT. 12/27: medically cleared for ECT, court ordered ECT. start ECT tomorrow. case d/w david in detail. taper ativan to 4 mg today, may need flumazenil tomorrow prior to ECT. continue ativan taper over w/e. 12/29: ECT #1 completed, clear improvement in mental status and insight. continue ativan taper. ECT #2 on sunday. 12/30: took PO meds yesterday morning after ECT, refusing since. continue current mgmt. 12/31: continue ativan taper. awake and verbal today. not eating or taking meds PO. ECT #2 tomorrow. 01/01: missed morning ECT due to inability to gain IV access. U/S guided IV inserted, will go for anoon ECT. PMR, inert, lying in bed; awake, however, and able to exchange a few words. 01/02 yesterday he had a he has ECT in the evening. Slight improvement. We added a midline IV access sings we could not get an IV access on the previous ECT easily. ECT tomorrow AM. 01/03: ECT #3 completed this morning. remains more alert and responsive than prior, yet still very poor PO intake and refusing PO meds. continue current mgmt. 01/04: remains alert and interactive. still PMR, poor appetite. ECT scheduled for tomorrow. 01/05: ECT #4 completed, continues more alert and engageable than prior to start of ECT. still not doing ADLs, not eating/drinking adequately. ECT #5 on sunday. 01/06: ECT #5 Sunday. Improved (known to this card writer hand from interaction over a month ago.). Continue current treatment plan. 01/07: Continue current management. 01/08: s/p ECT #5. improvements continue. trimmed gallegos, ate 3 meals yesterday, taking PO meds. ECT #6 . Reason for continued inpatient stay Substantial Risk for: inability to function and rapid decompensation Time Spent With Patient Time: Total time managing care of this patient today ____ minutes.
[2023-01-09 08:00] VITALS: BP 132/79; PULSE 76; RESP 18; TEMP 36.7; O2SAT 99
[2023-01-09] MEDS: 0.9 % Sodium Chloride Flush 10 ML SYRINGE IVFLUSH ×3 (08:20→22:58)
[2023-01-09] MEDS: FLUoxetine HCl 20 MG CAPSULE PO (08:20)
--- NOTE | 2023-01-09 12:12 | P.PNPSI_ITS ---
Subjective Subjective Date of Service: 01/09/23 Reason For Visit: catatonia Interim History: in bed, awake, interactive. gains remain, eating better, better hygiene, taking meds PO. next ECT tomorrow. per staff, pleasant, low anxiety. brighter, more interactive. denies psych Sx. eating better. concerned ECT is erasing [his] mind completely. attended a group. minimal interactions. slept about 6 hours. per NUHA greer, pt told her while he was catatonic he was hearing the voic e of god telling him not to eat or he would go to hell. Mental Status Exam Mental Status Exam Narrative: improving self-care. lying in bed but awake and responding to verbal prompts. cooperative. mood OK. no SI/HI/AVH expressed. Insight and judgment appears limited. Diagnostics Vital Signs (24Hr): Vital Signs - 24 hr 01/08/23 18:00 01/09/23 08:00 Temperature 98.2 F 98.1 F Pulse Rate 77 76 Respiratory Rate 18 18 Blood Pressure 105/52 L 132/79 Pulse Oximetry 96 99 Oxygen Delivery Method Room Air Room Air BMI result Body Mass Index 21.2 Labs 12/23/22 17:51 Medications Medications Current Medications Acetaminophen (Acetaminophen 325 Mg Tablet) 650 mg PO Q6H PRN PRN Reason: Headache/Pain Mild Scale (1-3) Last Admin: 01/05/23 19:46 Dose: 650 mg Acetaminophen (Acetaminophen 325 Mg Tablet) 650 mg PO ONCE PRN PRN Reason: Pain, Mild (Pain Scale 1-3) Al Hydroxide/Mg Hydroxide (Magnesium Hydrox/Alum Hydrox 30 Ml Oral.Susp) 30 ml PO Q6H PRN PRN Reason: Heartburn/Nausea Artificial Tears (Artificial Tears 15 Ml Drops) 2 drop EYE-BOTH Q4H PRN PRN Reason: Dry Eyes Last Admin: 12/02/22 14:19 Dose: 2 drop Benzocaine (Throat Lozenge, Medicated Lozenge) 1 lozenge MUCOUS MEM Q2H PRN PRN Reason: Sore Throat Last Admin: 12/29/22 12:23 Dose: 1 lozenge Fluoxetine HCl (Fluoxetine Hcl 20 Mg Capsule) 20 mg PO DAILY [facility]EL Last Admin: 01/09/23 08:20 Dose: 20 mg Hydroxyzine HCl (Hydroxyzine Hcl 25 Mg Tablet) 25 mg PO Q6H PRN PRN Reason: Anxiety Last Admin: 01/06/23 15:53 Dose: 25 mg Magnesium Hydroxide (Milk Of Magnesia 30 Ml Oral.Susp) 30 ml PO DAILY PRN PRN Reason: Constipation Ondansetron HCl (Ondansetron Hcl 4 Mg/2 Ml Vial) 4 mg IVPUSH ONCE PRN PRN Reason: Nausea and Vomiting Sodium Chloride (0.9 % Sodium Chloride Flush 10 Ml Syringe) 10 ml IVFLUSH Q8H [facility] Last Admin: 01/09/23 08:20 Dose: 10 ml Trazodone HCl (Trazodone Hcl 50 Mg Tablet) 50 mg PO BEDTIME PRN PRN Reason: Insomnia Allergies Allergies Allergy/AdvReac Type Severity Reaction Status Date / Time No Known Allergies Allergy Verified 10/31/22 14:47 Assessment & Plan Assessment & Plan (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 11/04: pt refusing meds and not taking anything PO. nevertheless appears slightly improved from yesterday, more verbal with less latency of response. advised to take meds and fluids. 11/05: ate and drank some last night. refusing meds. no longer grossly catatonic. continue current mgmt. 11/06: no PO intake in past 24H. refusing meds. parnell warning, 3-day up . 11/07: no food, had some water last night. recheck BMP. completed commitment paperwork. refusing meds. 11/08: denies eating or drinking but yesterday's breakfast tray was empty on return. commitment filed. refusing meds. 11/09: continues without PO intake, not attending to ADLs. refusing meds. hearing scheduled for next . labs from yesterday not indicative of concerning dehydration. 11/10 continue tx. more talkative, although guarded. No overt delusional content reported. denies SI/HI. 11/11: will order CMP for tomorrow morning given uncertainty ref PO intake 11/13: increase in BUN and Cr due to dehydration 11/14: continue tx. refuses medications but unable to provide explanation as to why not show understanding in terms of effects of decrease oral intake on renal function. 11/15: unchanged from last week. intermittent meals, BUN mildly elevated. court tomorrow. 11/16: court deferred for BEHZAD. no change in presentation. place on 1:1 for observation of PO intake. lying all day in bed, PMR, with shades drawn, for a darkened room. refusing medications. 11/17: DC olanzapine. offer SSRI. eating and drinking this morning, after having been put on 1:1. continue current mgmt. commitment hearing likely next . 11/18: refusing to look at or speak with MD. clearly ate and drank more yesterday, up and out of room more. nevertheless, spends vast majority of his time lying in bed in the dark. refusing meds. 11/19: ate more yesterday and last night. DC 1:1. appearing catatonic today, no eye blink staring at ceiling not responding. 11/20: moderate PO intake yesterday. appearing more catatonic today. continue to offer meds. 11/21: catatonic. no report on sleep or PO intake as pt is off 1:1. continue to offer meds. 11/22: catatonic. labs reassuring. court tomorrow. 11/23: catatonic. committed and ordered meds in court. 11/24: start ativan 2 mg TID with IM back-up for catatonia. plan to start neuro leptics and anti-depressants once catatonia improved. 11/25: decrease ativan to 1mg tid as he had no response to 2 mg and might be experiencing sedation from it 11/26: More alert on lower ativan dose but remains non-verbal and lying in bed 11/27 increase ativan back to 2mg po TID back up IM. 11/28: T/C gaining IV access to facilitate delivery of ativan; plan to increase to QID dosing. remains catatonic. case d/w nursing administration and medical claims specialistdirector of undergraduate admissions. 11/29: gain IV access today, start ativan 2 mg IV QID. was out of bed, eating and speaking yesterday evening. 11/30: 1:1 as he removed IV access, apparently. was up in kitchen getting food on evening shift. continue current mgmt. 12/01: up twice in the past 24H, ate some, swore that lights in his room had been turned on. T/C adding valium 2 mg TID IV (per court order, maximum of 8 mg ativan may be given per day) and/or antipsychotic to regimen. case D/W david. 12/02: Check comprehensive metabolic labs in AM. Continue current management. 12/03: Improved post IM dose of Zyprexa last night. Ate better. More commun icative. Continue current plan of care. 12/04: some improvement over w/e. increase IM zyprexa t HS to 5 mg each. continue current mgmt. 12/05: continue current mgmt. up several times yesterday, had conversation with reza nurse, observed eating dinner. 12/06: less active yesterday. did not receive IM zyprexa last night. continue current mgmt. 12/07: received zyprexa IM last night. up for breakfast this morning, exchanged some words with MD for first time in weeks. indicated he has a depressed mood. not opposed to anti-depressant. will start prozac liquid daily. 12/08: lying in bed, not responsive. several interactions with staff yesterday, limited and often non-verbal. refused PO prozac. continue current mgmt. 12/09: still catatonic. 12/10 still catatonic 12/11/22 Patient intermittently responsive often refusing p.o. meds may require ECT 12/12/2022 Patient remains mostly electively mute intermittently catatonic with some periods of verbal discourse 12/13/22 more verbal hx of recurrent depression still gets iv ativan refuses po meds 12 14 22 Continue Ativan and intravenous is encouraged fluoxetine continue olanzapine 5 mg patient does not appear to be psychotic would encourage ECT 12/15/2022 Continue plan of care labs reviewed sodium creatinine within normal limits 12/16: Continue current regimen and plans. Switch Zyprexa to a.m. use. 12/17: Continue current regimen and plans. Decrease Ativan by 2 mg and increase Zyprexa by 10 mg 12/18: continue current regimen. no change in catatonic presentation. 12/19: return ativan to 2 mg QID and zyprexa to 10 mg QHS only. 12/20: due to possibility of akathisia from zyprexa, will try lower potency anti- psychotic, thorazine. DC zyprexa and start thorazine 100 mg PO QHS with 50 mg IM if refuses PO. 12/21: received thorazine last NOC, IM. ate dinner and spoke with EMERY cobb. generally no improvement, no change in presentation. 12/22: awake briefly this morning, endorsing depression. vague, unable to state preference for Tx. continue current mgmt. hearing scheduled for next sunday re ECT. 12/23 ck labs consider iv fluids get med clearance ect 12/24/2022 Of Thorazine discontinued has not been effective can lower blood pressure and someone already with periods of dehydration strongly would benefit from ECT trial 12/25: continue current mgmt. up briefly today to move rooms. ate 3 meals yesterday, reportedly. hearing tomorrow for ECT. 12/26: staring today, no responses. hearing held today, judgment pending. decrease ativan to 2 mg TID in anticipation of ECT. medical clearance and EKG ordered. 12/26: staring today, no responses. IV access lost, will give IM ativan until IV access regained. awaiting word from court on ECT. 12/27: medically cleared for ECT, court ordered ECT. start ECT tomorrow. case d/w david in detail. taper ativan to 4 mg today, may need flumazenil tomorrow prior to ECT. continue ativan taper over w/e. 12/29: ECT #1 completed, clear improvement in mental status and insight. continue ativan taper. ECT #2 on sunday. 12/30: took PO meds yesterday morning after ECT, refusing since. continue current mgmt. 12/31: continue ativan taper. awake and verbal today. not eating or taking meds PO. ECT #2 tomorrow. 01/01: missed morning ECT due to inability to gain IV access. U/S guided IV inserted, will go for anoon ECT. PMR, inert, lying in bed; awake, however, and able to exchange a few words. 8/22 yesterday he had a he has ECT in the evening. Slight improvement. We added a midline IV access sings we could not get an IV access on the previous ECT easily. ECT tomorrow AM. 01/03: ECT #3 completed this morning. remains more alert and responsive than prior, yet still very poor PO intake and refusing PO meds. continue current mgmt. 01/04: remains alert and interactive. still PMR, poor appetite. ECT scheduled for tomorrow. 01/05: ECT #4 completed, continues more alert and engageable than prior to start of ECT. still not doing ADLs, not eating/drinking adequately. ECT #5 on sunday. 01/06: ECT #5 Sunday. Improved (known to this property underwriter from interaction over a month ago.). Continue current treatment plan. 01/07: Continue current management. 01/08: s/p ECT #5. improvements continue. trimmed gallegos, ate 3 meals yesterday, taking PO meds. ECT #6 . 01/09: informed SW that while catatonic had been hearing the voice of god telling him not to eat or he would go to hell. clinical presentation as per yesterday. ECT #6 tomorrow. concerned ECT is erasing [his] mind. Reason for continued inpatient stay Substantial Risk for: harm to self, inability to function and rapid decompensation Time Spent With Patient Time: Total time managing care of this patient today __25__ minutes.
[2023-01-09 20:00] VITALS: BP 140/76; PULSE 100; RESP 18; TEMP 36.8; O2SAT 97
[2023-01-10] VITALS (9 sets, daily range): BP systolic 97–139; BP diastolic 56–97; PULSE 67–95; RESP 14–18; TEMP 36.6–37.1; O2SAT 93–99; BMI 27.1
--- NOTE | 2023-01-10 07:00 | P.CONAN_ITS ---
[facility] Active Problems Active Problems: All Active Problems (Updated 11/11/22 @ 00:11 by Ez Morales) Catatonia (Acute) Cocaine use disorder, mild, in early remission (Acute) Mood disorder (Acute) Cocaine use disorder (Acute) Depression (Acute) Anorexia (Acute) Past Medical History Medical History Cocaine use disorder Family History Family history of problems with anesthesia: No Surgical History History of Problems with Anesthesia: No Social History Social History Household Members: None Housing: Other Housing Other:: TSS Unable to assess alcohol history related to: Refusing to respond Patient Tobacco Use Status: Never used Tobacco Second Hand Smoke Exposure: No Use of substances other than those prescribed or required for medical reasons: No Currently Displaying Signs/Symptoms of Drug Intoxication Withdrawal: No Have you been hit, kicked, punched, or otherwise hurt by someone within the past year? If so, by whom?: No Do you feel safe in your current relationship?: No Current Relationship Is there a partner from a previous relationship who is making you feel unsafe now?: No Are you made to feel afraid or neglected: No Are you DNR?: No Advance Directives: No Advance Directives Information Provided: Yes Advance Directives on File: No Do you have thoughts of harming others: None Do you have a plan to hurt others: No Plan Recently lost weight without trying: No Nutrition Risks: No Nutritional Risk Poor oral hygiene: No service: No Sexual orientation: Decline to Answer Meds Allergies Allergy/AdvReac Type Severity Reaction Status Date / Time No Known Allergies Allergy Verified 10/31/22 14:47 Active Medications: Current Medications Acetaminophen (Acetaminophen 325 Mg Tablet) 650 mg PO Q6H PRN PRN Reason: Headache/Pain Mild Scale (1-3) Last Admin: 01/05/23 19:46 Dose: 650 mg Acetaminophen (Acetaminophen 325 Mg Tablet) 650 mg PO ONCE PRN PRN Reason: Pain, Mild (Pain Scale 1-3) Al Hydroxide/Mg Hydroxide (Magnesium Hydrox/Alum Hydrox 30 Ml Oral.Susp) 30 ml PO Q6H PRN PRN Reason: Heartburn/Nausea Artificial Tears (Artificial Tears 15 Ml Drops) 2 drop EYE-BOTH Q4H PRN PRN Reason: Dry Eyes Last Admin: 12/02/22 14:19 Dose: 2 drop Benzocaine (Throat Lozenge, Medicated Lozenge) 1 lozenge MUCOUS MEM Q2H PRN PRN Reason: Sore Throat Last Admin: 12/29/22 12:23 Dose: 1 lozenge Fluoxetine HCl (Fluoxetine Hcl 20 Mg Capsule) 20 mg PO DAILY [facility] Last Admin: 01/09/23 08:20 Dose: 20 mg Hydroxyzine HCl (Hydroxyzine Hcl 25 Mg Tablet) 25 mg PO Q6H PRN PRN Reason: Anxiety Last Admin: 01/06/23 15:53 Dose: 25 mg Magnesium Hydroxide (Milk Of Magnesia 30 Ml Oral.Susp) 30 ml PO DAILY PRN PRN Reason: Constipation Ondansetron HCl (Ondansetron Hcl 4 Mg/2 Ml Vial) 4 mg IVPUSH ONCE PRN PRN Reason: Nausea and Vomiting Sodium Chloride (0.9 % Sodium Chloride Flush 10 Ml Syringe) 10 ml IVFLUSH Q8H [facility] Last Admin: 01/09/23 22:58 Dose: 10 ml Trazodone HCl (Trazodone Hcl 50 Mg Tablet) 50 mg PO BEDTIME PRN PRN Reason: Insomnia Home Medications Medication Instructions Recorded Confirmed Last Taken Type No Known Home Meds 10/31/22 11/04/22 Unknown History Exam Exam Date and Time: January 10, 2023 0700 Height,Weight and Vital Signs: Height 6 ft Weight 90.718 kg Last Vital Signs Temp 98.0 F 01/10/23 06:35 Pulse 92 01/10/23 06:35 Resp 18 01/10/23 06:35 BP 125/79 01/10/23 06:35 Pulse Ox 99 01/10/23 06:35 O2 Del Method Room Air 01/10/23 06:35 O2 Flow Rate 2 01/08/23 08:04 Pertinent Lab Results Pertinent Lab Results: Laboratory Tests 11/03/22 11/05/22 11/08/22 15:48 12:58 15:07 Sodium 142 140 Potassium 4.1 D 4.1 Chloride 108 105 Carbon Dioxide 26 28 Anion Gap 12 11 L BUN 23 H 15 Creatinine 0.73 0.83 0.72 Estim Creat Clear Calc TNP TNP TNP Estimated GFR > 60 > 60 > 60 Random Glucose 97 95 Calcium 9.1 9.7 D Total Bilirubin AST ALT Alkaline Phosphatase Total Protein Albumin 11/13/22 11/16/22 11/22/22 08:00 08:11 11:55 Sodium 140 138 137 Potassium 4.8 4.9 4.5 Chloride 103 106 106 Carbon Dioxide 22 22 25 Anion Gap 20 15 11 L BUN 25 H 16 16 Creatinine 1.07 0.97 0.86 Estim Creat Clear Calc TNP TNP TNP Estimated GFR > 60 > 60 > 60 Random Glucose 73 89 93 Calcium 10.0 9.6 9.9 Total Bilirubin 0.9 0.9 AST 21 22 ALT 16 15 Alkaline Phosphatase 62 59 Total Protein 7.1 6.8 Albumin 4.0 3.6 12/03/22 12/15/22 12/23/22 07:45 09:53 17:51 Sodium 139 139 139 Potassium 4.8 4.3 4.2 Chloride 107 106 104 Carbon Dioxide 24 23 23 Anion Gap 13 14 16 BUN 13 11 11 Creatinine 0.73 0.74 0.77 Estim Creat Clear Calc TNP TNP TNP Estimated GFR > 60 > 60 > 60 Random Glucose 103 86 79 Calcium 9.3 D 9.3 9.8 Total Bilirubin 0.5 0.7 0.8 AST 25 18 24 ALT 20 16 16 Alkaline Phosphatase 47 55 68 Total Protein 6.4 L 6.5 7.1 Albumin 3.5 3.6 4.0 Airway Mallampati Class: II TM Dist: >3cm Neck ROM: Full Heart: rrr Lungs: cta Assessment and Plan Assessment Anesthesia Assessment: Anesthesia Plan Discussed and Chart Reviewed Final Anesthetic Review Family History of Problems with Anesthesia: No History of Problems with Anesthesia: No NPO: Yes ASA Class: III Final Preanesthetic Review: No Changes in Pt Med Stat, Meds/Allgs Chart Reviewed and Consent Obtained/Reviewed Patient Risk: Intermediate Procedure Risk: Intermediate Anesthetic Plan Anesthetic Plan: GA Disposition: Standard PACU
--- NOTE | 2023-01-10 07:44 | MHC.SHP ---
Pre-Procedural Eval Section A Date of Service: 01/10/23 The patient is an INPATIENT: Yes Changes since office visit: Yes Changes in Medication and Yes Patient answered all questions; No Cold of Flu in the past 2 weeks and No New Medical Problems The History & Physical has been completed within 30 days and I have reviewed it.: Yes Section B Chief Complaint: catatonia Allergies: Allergies Allergy/AdvReac Type Severity Reaction Status Date / Time No Known Allergies Allergy Verified 10/31/22 14:47 Plan I have reviewed the history and physical and performed a pertinent physical examination on my patient. No changes have occurred unless specified. Time Spent With Patient Time: Total time managing care of this patient today ____ minutes.
--- NOTE | 2023-01-10 07:44 | HO.ECTPROC ---
ECT Procedure Note Diagnosis/Treatment Date of Service: 01/10/23 Diagnosis: Catatonia Previous ECT Date: 01/08/23 Current Treatment Number: 6 Treatment: Series Interval Clinical Notes: The patient is more awake, alert much corona range of affect Time: Total time managing care of this patient today ____ minutes. ECT Settings Device: THYMATRON DGx Electrode Placement: Bitemporal Program/Pulse Width: 0.50 Energy Percent: 100 Seizure Duration By EEG (in seconds): 29 Medications Administration General Anesthetic: Etomidate (16) Muscle Relaxant: Succinylcholine (100) Ancillary Medications Analgesics: Torodol - Pre ECT Anti-emetics: Zofran - Pre ECT Miscillaneous Medications: Propofol (30) Airway Management Airway Management: Bag Mask Ventilation Treatment Recommendations No Changes Recommended: No change Notes: did not need glyco try and dec etomidate Pt Tolerated Procedure w/o Issue: Yes
[2023-01-10] MEDS: FLUoxetine HCl 20 MG CAPSULE PO (08:58)
[2023-01-10] MEDS: 0.9 % Sodium Chloride Flush 10 ML SYRINGE IVFLUSH ×3 (09:01→22:15)
--- NOTE | 2023-01-10 14:10 | HO.PSYCHPN ---
Subjective Subjective Date of Service: 01/10/23 Reason For Visit: catatonia Interim History: calm, cooperative. more visible, ambulatory, OOB. discusses his recently having the voice of god in his head telling him not to eat or he would be sent to hell. he states it has recently left his head. seems skeptical that it is an aspect of mental illness. informed of diagnosis and need to restart anti-psychotic medication. per staff, visible, more social. no SI/HI/AVH. eves anxiety and depression down. good appetite. watching TV. appears to be sleeping. last NOC had CAH to not shower. Mental Status Exam Mental Status Exam Narrative: improving self-care. up and about the unit, engaging in more programming and social activities. cooperative. speech soft, decr amount, flattened prosody. thoughts linear and logical. delusion about voice of god. affect constricted and hypo-intense. no SI/HI/AVH expressed. Insight and judgment appears limited. Diagnostics Vital Signs (24Hr): Vital Signs - 24 hr 01/09/23 20:00 01/10/23 06:09 01/10/23 06:35 Temperature 98.3 F 98.6 F 98.0 F Pulse Rate 100 91 92 Respiratory Rate 18 16 18 Blood Pressure 140/76 H 139/73 125/79 Pulse Oximetry 97 98 99 Oxygen Delivery Method Room Air Room Air Oxygen Flow Rate 01/10/23 07:46 01/10/23 07:51 01/10/23 07:56 Temperature 98.4 F Pulse Rate 89 67 85 Respiratory Rate 14 18 18 Blood Pressure 138/69 138/64 97/56 L Pulse Oximetry 93 94 94 Oxygen Delivery Method Nasal Cannula Room Air Oxygen Flow Rate 2 01/10/23 08:01 01/10/23 08:16 01/10/23 08:35 Temperature 98.4 F 97.9 F Pulse Rate 95 90 88 Respiratory Rate 18 18 18 Blood Pressure 104/63 119/71 118/74 Pulse Oximetry 96 94 95 Oxygen Delivery Method Room Air Oxygen Flow Rate BMI result Body Mass Index 27.1 Labs 12/23/22 17:51 Medications Medications Current Medications Acetaminophen (Acetaminophen 325 Mg Tablet) 650 mg PO Q6H PRN PRN Reason: Headache/Pain Mild Scale (1-3) Last Admin: 01/05/23 19:46 Dose: 650 mg Acetaminophen (Acetaminophen 325 Mg Tablet) 650 mg PO ONCE PRN PRN Reason: Pain, Mild (Pain Scale 1-3) Al Hydroxide/Mg Hydroxide (Magnesium Hydrox/Alum Hydrox 30 Ml Oral.Susp) 30 ml PO Q6H PRN PRN Reason: Heartburn/Nausea Artificial Tears (Artificial Tears 15 Ml Drops) 2 drop EYE-BOTH Q4H PRN PRN Reason: Dry Eyes Last Admin: 12/02/22 14:19 Dose: 2 drop Benzocaine (Throat Lozenge, Medicated Lozenge) 1 lozenge MUCOUS MEM Q2H PRN PRN Reason: Sore Throat Last Admin: 12/29/22 12:23 Dose: 1 lozenge Fluoxetine HCl (Fluoxetine Hcl 20 Mg Capsule) 20 mg PO DAILY [facility] Last Admin: 01/10/23 08:58 Dose: 20 mg Hydroxyzine HCl (Hydroxyzine Hcl 25 Mg Tablet) 25 mg PO Q6H PRN PRN Reason: Anxiety Last Admin: 01/06/23 15:53 Dose: 25 mg Magnesium Hydroxide (Milk Of Magnesia 30 Ml Oral.Susp) 30 ml PO DAILY PRN PRN Reason: Constipation Ondansetron HCl (Ondansetron Hcl 4 Mg/2 Ml Vial) 4 mg IVPUSH ONCE PRN PRN Reason: Nausea and Vomiting Sodium Chloride (0.9 % Sodium Chloride Flush 10 Ml Syringe) 10 ml IVFLUSH Q8H [facility] Last Admin: 01/10/23 09:01 Dose: 10 ml Trazodone HCl (Trazodone Hcl 50 Mg Tablet) 50 mg PO BEDTIME PRN PRN Reason: Insomnia Allergies Allergies Allergy/AdvReac Type Severity Reaction Status Date / Time No Known Allergies Allergy Verified 10/31/22 14:47 Assessment & Plan Assessment & Plan (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 11/04: pt refusing meds and not taking anything PO. nevertheless appears slightly improved from yesterday, more verbal with less latency of response. advised to take meds and fluids. 11/05: ate and drank some last night. refusing meds. no longer grossly catatonic. continue current mgmt. 11/06: no PO intake in past 24H. refusing meds. parnell warning, 3-day up wed. 11/07: no food, had some water last night. recheck BMP. completed commitment paperwork. refusing meds. 11/08: denies eating or drinking but yesterday's breakfast tray was empty on return. commitment filed. refusing meds. 11/09: continues without PO intake, not attending to ADLs. refusing meds. hearing scheduled for next . labs from yesterday not indicative of concerning dehydration. 11/10 continue tx. more talkative, although guarded. No overt delusional content reported. denies SI/HI. 11/11: will order CMP for tomorrow morning given uncertainty ref PO intake 11/13: increase in BUN and Cr due to dehydration 11/14: continue tx. refuses medications but unable to provide explanation as to why not show understanding in terms of effects of decrease oral intake on renal function. 11/15: unchanged from last week. intermittent meals, BUN mildly elevated. court tomorrow. 11/16: court deferred for BEHZAD. no change in presentation. place on 1:1 for observation of PO intake. lying all day in bed, PMR, with shades drawn, for a darkened room. refusing medications. 11/17: DC olanzapine. offer SSRI. eating and drinking this morning, after having been put on 1:1. continue current mgmt. commitment hearing likely next . 11/18: refusing to look at or speak with MD. clearly ate and drank more yesterday, up and out of room more. nevertheless, spends vast majority of his time lying in bed in the dark. refusing meds. 11/19: ate more yesterday and last night. DC 1:1. appearing catatonic today, no eye blink staring at ceiling not responding. 11/20: moderate PO intake yesterday. appearing more catatonic today. continue to offer meds. 11/21: catatonic. no report on sleep or PO intake as pt is off 1:1. continue to offer meds. 11/22: catatonic. labs reassuring. court tomorrow. 11/23: catatonic. committed and ordered meds in court. 11/24: start ativan 2 mg TID with IM back-up for catatonia. plan to start neuroleptics and anti-depressants once catatonia improved. 11/25: decrease ativan to 1mg tid as he had no response to 2 mg and might be experiencing sedation from it 11/26: More alert on lower ativan dose but remains non-verbal and lying in bed 11/27 increase ativan back to 2mg po TID back up IM. 11/28: T/C gaining IV access to facilitate delivery of ativan; plan to increase to QID dosing. remains catatonic. case d/w nursing administration and medical billing and coding specialistdirector [place] [employer]. 11/29: gain IV access today, start ativan 2 mg IV QID. was out of bed, eating and speaking yesterday evening. 11/30: 1:1 as he removed IV access, apparently. was up in kitchen getting food on evening shift. continue current mgmt. 12/01: up twice in the past 24H, ate some, swore that lights in his room had been turned on. T/C adding valium 2 mg TID IV (per court order, maximum of 8 mg ativan may be given per day) and/or antipsychotic to regimen. case D/W david. 12/02: Check comprehensive metabolic labs in AM. Continue current management. 12/03: Improved post IM dose of Zyprexa last night. Ate better. More communicative. Continue current plan of care. 12/04: some improvement over w/e. increase IM zyprexa t HS to 5 mg each. continue current mgmt. 12/05: continue current mgmt. up several times yesterday, had conversation with reza nurse, observed eating dinner. 12/06: less active yesterday. did not receive IM zyprexa last night. continue current mgmt. 12/07: received zyprexa IM last night. up for breakfast this morning, exchanged some words with MD for first time in weeks. indicated he has a depressed mood. not opposed to anti-depressant. will start prozac liquid daily. 12/08: lying in bed, not responsive. several interactions with staff yesterday, limited and often non-verbal. refused PO prozac. continue current mgmt. 12/09: still catatonic. 12/10 still catatonic 12/11/22 Patient intermittently responsive often refusing p.o. meds may require ECT 12/12/2022 Patient remains mostly electively mute intermittently catatonic with some periods of verbal discourse 12/13/22 more verbal hx of recurrent depression still gets iv ativan refuses po meds 12 14 22 Continue Ativan and intravenous is encouraged fluoxetine continue olanzapine 5 mg patient does not appear to be psychotic would encourage ECT 12/15/2022 Continue plan of care labs reviewed sodium creatinine within normal limits 12/16: Continue current regimen and plans. Switch Zyprexa to a.m. use. 12/17: Continue current regimen and plans. Decrease Ativan by 2 mg and increase Zyprexa by 10 mg 12/18: continue current regimen. no change in catatonic presentation. 12/19: return ativan to 2 mg QID and zyprexa to 10 mg QHS only. 12/20: due to possibility of akathisia from zyprexa, will try lower potency anti-psychotic, thorazine. DC zyprexa and start thorazine 100 mg PO QHS with 50 mg IM if refuses PO. 12/21: received thorazine last NOC, IM. ate dinner and spoke with EMERY cobb. generally no improvement, no change in presentation. 12/22: awake briefly this morning, endorsing depression. vague, unable to state preference for Tx. continue current mgmt. hearing scheduled for next sunday re ECT. 12/23 ck labs consider iv fluids get med clearance ect 12/24/2022 Of Thorazine discontinued has not been effective can lower blood pressure and someone already with periods of dehydration strongly would benefit from ECT trial 12/25: continue current mgmt. up briefly today to move rooms. ate 3 meals yesterday, reportedly. hearing tomorrow for ECT. 12/26: staring today, no responses. hearing held today, judgment pending. decrease ativan to 2 mg TID in anticipation of ECT. medical clearance and EKG ordered. 12/26: staring today, no responses. IV access lost, will give IM ativan until IV access regained. awaiting word from court on ECT. 8/16: medically cleared for ECT, court ordered ECT. start ECT tomorrow. case d/w david in detail. taper ativan to 4 mg today, may need flumazenil tomorrow prior to ECT. continue ativan taper over /e. 12/29: ECT #1 completed, clear improvement in mental status and insight. continue ativan taper. ECT #2 on sunday. 12/30: took PO meds yesterday morning after ECT, refusing since. continue current mgmt. 12/31: continue ativan taper. awake and verbal today. not eating or taking meds PO. ECT #2 tomorrow. 01/01: missed morning ECT due to inability to gain IV access. U/S guided IV inserted, will go for anoon ECT. PMR, inert, lying in bed; awake, however, and able to exchange a few words. 01/02 yesterday he had a he has ECT in the evening. Slight improvement. We added a midline IV access sings we could not get an IV access on the previous ECT easily. ECT tomorrow AM. 01/03: ECT #3 completed this morning. remains more alert and responsive than prior, yet still very poor PO intake and refusing PO meds. continue current mgmt. 01/04: remains alert and interactive. still PMR, poor appetite. ECT scheduled for tomorrow. 01/05: ECT #4 completed, continues more alert and engageable than prior to start of ECT. still not doing ADLs, not eating/drinking adequately. ECT #5 on sunday. 01/06: ECT #5 Sunday. Improved (known to this functional tester typewriters from interaction over a month ago.). Continue current treatment plan. 01/07: Continue current management. 01/08: s/p ECT #5. improvements continue. trimmed gallegos, ate 3 meals yesterday, taking PO meds. ECT #6 . 01/09: informed SW that while catatonic had been hearing the voice of god telling him not to eat or he would go to hell. clinical presentation as per yesterday. ECT #6 tomorrow. concerned ECT is erasing [his] mind. 01/10: notably more social and visible in the milieu today. start zyprexa 5 at bedtime and increase prozac from 20 mg daily to 40 mg daily as of tomorrow. ECT #6 completed. Patient educated on: diagnosis, medication risk/benefits and ECT Reason for continued inpatient stay Substantial Risk for: inability to function and rapid decompensation Time Spent With Patient Time: Total time managing care of this patient today __25__ minutes.
[2023-01-10] MEDS: OLANZapine 5 MG TABLET PO (22:15)
[2023-01-11] MEDS: 0.9 % Sodium Chloride Flush 10 ML SYRINGE IVFLUSH ×3 (06:39→23:05)
[2023-01-11 07:00] VITALS: BMI 22.7
[2023-01-11 08:48] VITALS: BP 139/76; PULSE 124; RESP 18; TEMP 36.7; O2SAT 97
[2023-01-11] MEDS: FLUoxetine HCl 20 MG CAPSULE 40 MG PO (08:49)
--- NOTE | 2023-01-11 12:35 | HO.PSYCHPN ---
Subjective Subjective Date of Service: 01/11/23 Reason For Visit: catatonia Interim History: calm, cooperative, in bed resting. no complaints or requests. informed of plan to move to unilateral ECT. states he continues with improved mood and better appetite. per staff, better anxiety and depression. social. attending groups. eating well. slept [id number]. Mental Status Exam Mental Status Exam Narrative: improving self-care. up and about the unit, engaging in more programming and social activities. cooperative. speech soft, decr amount, flattened prosody. thoughts linear and logical. delusion about voice of god. affect constricted and hypo-intense. no SI/HI/AVH expressed. Insight and judgment appears limited. Diagnostics Vital Signs (24Hr): Vital Signs - 24 hr 01/10/23 22:19 01/11/23 08:48 Temperature 98.7 F 98.0 F Pulse Rate 80 124 H Respiratory Rate 18 Blood Pressure 135/97 H 139/76 Pulse Oximetry 97 97 Oxygen Delivery Method Room Air Room Air BMI result Body Mass Index 22.7 Labs 12/23/22 17:51 Medications Medications Current Medications Acetaminophen (Acetaminophen 325 Mg Tablet) 650 mg PO Q6H PRN PRN Reason: Headache/Pain Mild Scale (1-3) Last Admin: 01/05/23 19:46 Dose: 650 mg Acetaminophen (Acetaminophen 325 Mg Tablet) 650 mg PO ONCE PRN PRN Reason: Pain, Mild (Pain Scale 1-3) Al Hydroxide/Mg Hydroxide (Magnesium Hydrox/Alum Hydrox 30 Ml Oral.Susp) 30 ml PO Q6H PRN PRN Reason: Heartburn/Nausea Artificial Tears (Artificial Tears 15 Ml Drops) 2 drop EYE-BOTH Q4H PRN PRN Reason: Dry Eyes Last Admin: 12/02/22 14:19 Dose: 2 drop Benzocaine (Throat Lozenge, Medicated Lozenge) 1 lozenge MUCOUS MEM Q2H PRN PRN Reason: Sore Throat Last Admin: 12/29/22 12:23 Dose: 1 lozenge Fluoxetine HCl (Fluoxetine Hcl 20 Mg Capsule) 40 mg PO DAILY [facility] Last Admin: 01/11/23 08:49 Dose: 40 mg Hydroxyzine HCl (Hydroxyzine Hcl 25 Mg Tablet) 25 mg PO Q6H PRN PRN Reason: Anxiety Last Admin: 01/06/23 15:53 Dose: 25 mg Magnesium Hydroxide (Milk Of Magnesia 30 Ml Oral.Susp) 30 ml PO DAILY PRN PRN Reason: Constipation Olanzapine (Olanzapine 5 Mg Tablet) 5 mg PO BEDTIME [facility] Last Admin: 01/10/23 22:15 Dose: 5 mg Ondansetron HCl (Ondansetron Hcl 4 Mg/2 Ml Vial) 4 mg IVPUSH ONCE PRN PRN Reason: Nausea and Vomiting Sodium Chloride (0.9 % Sodium Chloride Flush 10 Ml Syringe) 10 ml IVFLUSH Q8H [facility] Last Admin: 01/11/23 06:39 Dose: 10 ml Trazodone HCl (Trazodone Hcl 50 Mg Tablet) 50 mg PO BEDTIME PRN PRN Reason: Insomnia Allergies Allergies Allergy/AdvReac Type Severity Reaction Status Date / Time No Known Allergies Allergy Verified 10/31/22 14:47 Assessment & Plan Assessment & Plan (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 11/04: pt refusing meds and not taking anything PO. nevertheless appears slightly improved from yesterday, more verbal with less latency of response. advised to take meds and fluids. 11/05: ate and drank some last night. refusing meds. no longer grossly catatonic. continue current mgmt. 11/06: no PO intake in past 24H. refusing meds. parnell warning, 3-day up . 11/07: no food, had some water last night. recheck BMP. completed commitment paperwork. refusing meds. 11/08: denies eating or drinking but yesterday's breakfast tray was empty on return. commitment filed. refusing meds. 11/09: continues without PO intake, not attending to ADLs. refusing meds. hearing scheduled for next . labs from yesterday not indicative of concerning dehydration. 11/10 continue tx. more talkative, although guarded. No overt delusional content reported. denies SI/HI. 11/11: will order CMP for tomorrow morning given uncertainty ref PO intake 11/13: increase in BUN and Cr due to dehydration 11/14: continue tx. refuses medications but unable to provide explanation as to why not show understanding in terms of effects of decrease oral intake on renal function. 11/15: unchanged from last week. intermittent meals, BUN mildly elevated. court tomorrow. 11/16: court deferred for BEHZAD. no change in presentation. place on 1:1 for observation of PO intake. lying all day in bed, PMR, with shades drawn, for a darkened room. refusing medications. 11/17: DC olanzapine. offer SSRI. eating and drinking this morning, after having been put on 1:1. continue current mgmt. commitment hearing likely next . 11/18: refusing to look at or speak with MD. clearly ate and drank more yesterday, up and out of room more. nevertheless, spends vast majority of his time lying in bed in the dark. refusing meds. 11/19: ate more yesterday and last night. DC 1:1. appearing catatonic today, no eye blink staring at ceiling not responding. 11/20: moderate PO intake yesterday. appearing more catatonic today. continue to offer meds. 11/21: catatonic. no report on sleep or PO intake as pt is off 1:1. continue to offer meds. 11/22: catatonic. labs reassuring. court tomorrow. 11/23: catatonic. committed and ordered meds in court. 11/24: start ativan 2 mg TID with IM back-up for catatonia. plan to start neuroleptics and anti-depressants once catatonia improved. 11/25: decrease ativan to 1mg tid as he had no response to 2 mg and might be experiencing sedation from it 11/26: More alert on lower ativan dose but remains non-verbal and lying in bed 11/27 increase ativan back to 2mg po TID back up IM. 11/28: T/C gaining IV access to facilitate delivery of ativan; plan to increase to QID dosing. remains catatonic. case d/w nursing administration and medical leadbusiness services director. 11/29: gain IV access today, start ativan 2 mg IV QID. was out of bed, eating and speaking yesterday evening. 11/30: 1:1 as he removed IV access, apparently. was up in kitchen getting food on evening shift. continue current mgmt. 12/01: up twice in the past 24H, ate some, swore that lights in his room had been turned on. T/C adding valium 2 mg TID IV (per court order, maximum of 8 mg ativan may be given per day) and/or antipsychotic to regimen. case D/W david. 12/02: Check comprehensive metabolic labs in AM. Continue current management. 12/03: Improved post IM dose of Zyprexa last night. Ate better. More communicative. Continue current plan of care. 12/04: some improvement over w/e. increase IM zyprexa t HS to 5 mg each. continue current mgmt. 12/05: continue current mgmt. up several times yesterday, had conversation with reza nurse, observed eating dinner. 12/06: less active yesterday. did not receive IM zyprexa last night. continue current mgmt. 12/07: received zyprexa IM last night. up for breakfast this morning, exchanged some words with MD for first time in weeks. indicated he has a depressed mood. not opposed to anti-depressant. will start prozac liquid daily. 12/08: lying in bed, not responsive. several interactions with staff yesterday, limited and often non-verbal. refused PO prozac. continue current mgmt. 12/09: still catatonic. 12/10 still catatonic 12/11/22 Patient intermittently responsive often refusing p.o. meds may require ECT 12/12/2022 Patient remains mostly electively mute intermittently catatonic with some periods of verbal discourse 12/13/22 more verbal hx of recurrent depression still gets iv ativan refuses po meds 12 14 22 Continue Ativan and intravenous is encouraged fluoxetine continue olanzapine 5 mg patient does not appear to be psychotic would encourage ECT 12/15/2022 Continue plan of care labs reviewed sodium creatinine within normal limits 12/16: Continue current regimen and plans. Switch Zyprexa to a.m. use. 12/17: Continue current regimen and plans. Decrease Ativan by 2 mg and increase Zyprexa by 10 mg 12/18: continue current regimen. no change in catatonic presentation. 12/19: return ativan to 2 mg QID and zyprexa to 10 mg QHS only. 12/20: due to possibility of akathisia from zyprexa, will try lower potency anti-psychotic, thorazine. DC zyprexa and start thorazine 100 mg PO QHS with 50 mg IM if refuses PO. 12/21: received thorazine last NOC, IM. ate dinner and spoke with EMERY cobb. generally no improvement, no change in presentation. 12/22: awake briefly this morning, endorsing depression. vague, unable to state preference for Tx. continue current mgmt. hearing scheduled for next sunday re ECT. 12/23 ck labs consider iv fluids get med clearance ect 12/24/2022 Of Thorazine discontinued has not been effective can lower blood pressure and someone already with periods of dehydration strongly would benefit from ECT trial 12/25: continue current mgmt. up briefly today to move rooms. ate 3 meals yesterday, reportedly. hearing tomorrow for ECT. 12/26: staring today, no responses. hearing held today, judgment pending. decrease ativan to 2 mg TID in anticipation of ECT. medical clearance and EKG ordered. 12/26: staring today, no responses. IV access lost, will give IM ativan until IV access regained. awaiting word from court on ECT. 12/27: medically cleared for ECT, court ordered ECT. start ECT tomorrow. case d/w david in detail. taper ativan to 4 mg today, may need flumazenil tomorrow prior to ECT. continue ativan taper over w/e. 12/29: ECT #1 completed, clear improvement in mental status and insight. continue ativan taper. ECT #2 on sunday. 12/30: took PO meds yesterday morning after ECT, refusing since. continue current mgmt. 12/31: continue ativan taper. awake and verbal today. not eating or taking meds PO. ECT #2 tomorrow. 01/01: missed morning ECT due to inability to gain IV access. U/S guided IV inserted, will go for anoon ECT. PMR, inert, lying in bed; awake, however, and able to exchange a few words. 8/22 yesterday he had a he has ECT in the evening. Slight improvement. We added a midline IV access sings we could not get an IV access on the previous ECT easily. ECT tomorrow AM. 01/03: ECT #3 completed this morning. remains more alert and responsive than prior, yet still very poor PO intake and refusing PO meds. continue current mgmt. 01/04: remains alert and interactive. still PMR, poor appetite. ECT scheduled for tomorrow. 01/05: ECT #4 completed, continues more alert and engageable than prior to start of ECT. still not doing ADLs, not eating/drinking adequately. ECT #5 on sunday. 01/06: ECT #5 Sunday. Improved (known to this commercial lines underwriter from interaction over a month ago.). Continue current treatment plan. 01/07: Continue current management. 01/08: s/p ECT #5. improvements continue. trimmed gallegos, ate 3 meals yesterday, taking PO meds. ECT #6 . 01/09: informed SW that while catatonic had been hearing the voice of god telling him not to eat or he would go to hell. clinical presentation as per yesterday. ECT #6 tomorrow. concerned ECT is erasing [his] mind. 01/10: notably more social and visible in the milieu today. start zyprexa 5 at bedtime and increase prozac from 20 mg daily to 40 mg daily as of tomorrow. ECT #6 completed. 01/11: stably improved presentation. ECT #7 tomorrow. continue current mgmt. Reason for continued inpatient stay Substantial Risk for: inability to function and rapid decompensation Time Spent With Patient Time: Total time managing care of this patient today ____ minutes.
[2023-01-11 19:55] VITALS: BP 124/65; PULSE 99; RESP 16; TEMP 36.9; O2SAT 98
[2023-01-11] MEDS: OLANZapine 5 MG TABLET PO (20:33)
[2023-01-12] VITALS (8 sets, daily range): BP systolic 115–140; BP diastolic 70–93; PULSE 72–99; RESP 16–18; TEMP 36.1–37.2; O2SAT 94–100; BMI 22.7
--- NOTE | 2023-01-12 07:45 | MHC.SHP ---
Pre-Procedural Eval Section A Date of Service: 01/12/23 The patient is an INPATIENT: Yes Changes since office visit: Yes Changes in Medication and Yes Patient answered all questions; No Cold of Flu in the past 2 weeks and No New Medical Problems The History & Physical has been completed within 30 days and I have reviewed it.: Yes Section B Chief Complaint: catatonia Allergies: Allergies Allergy/AdvReac Type Severity Reaction Status Date / Time No Known Allergies Allergy Verified 10/31/22 14:47 Plan I have reviewed the history and physical and performed a pertinent physical examination on my patient. No changes have occurred unless specified. Time Spent With Patient Time: Total time managing care of this patient today ____ minutes.
--- NOTE | 2023-01-12 07:46 | HO.ECTPROC ---
ECT Procedure Note Diagnosis/Treatment Date of Service: 01/12/23 Diagnosis: Catatonia Previous ECT Date: 01/10/23 Current Treatment Number: 7 Treatment: Series Interval Clinical Notes: The patient is more awake, alert much corona range of affect CHANGE TO rul Time: Total time managing care of this patient today ____ minutes. ECT Settings Device: THYMATRON DGx Electrode Placement: Right Unilateral Program/Pulse Width: 0.50 Energy Percent: 100 Seizure Duration By EEG (in seconds): 42 Medications Administration General Anesthetic: Etomidate (12) Muscle Relaxant: Succinylcholine (100) Ancillary Medications Analgesics: Torodol - Pre ECT Anti-emetics: Zofran - Pre ECT Cardiovascular Medications: Glycopyrrolate (0.2) Miscillaneous Medications: Midazolam (2) Airway Management Airway Management: Bag Mask Ventilation Treatment Recommendations No Changes Recommended: No change Notes: Time they lowered to 12 mg change from bitemporal to right unilateral Pt Tolerated Procedure w/o Issue: Yes
--- NOTE | 2023-01-12 07:49 | HO.ANESPROP2 ---
HPI - Anesthesia Eval Consult details Narrative: 37 yo male patient for ECT PMFSH Active Problems Active Problems: All Active Problems (Updated 11/11/22 @ 00:11 by Ez Morales) Catatonia (Acute) Cocaine use disorder, mild, in early remission (Acute) Mood disorder (Acute) Cocaine use disorder (Acute) Depression (Acute) Anorexia (Acute) Past Medical History Medical History Cocaine use disorder Family History Family history of problems with anesthesia: No Surgical History History of Problems with Anesthesia: No Social History Social History Household Members: None Housing: Other Housing Other:: TSS Unable to assess alcohol history related to: Refusing to respond Patient Tobacco Use Status: Never used Tobacco Second Hand Smoke Exposure: No Use of substances other than those prescribed or required for medical reasons: No Currently Displaying Signs/Symptoms of Drug Intoxication Withdrawal: No Have you been hit, kicked, punched, or otherwise hurt by someone within the past year? If so, by whom?: No Do you feel safe in your current relationship?: No Current Relationship Is there a partner from a previous relationship who is making you feel unsafe now?: No Are you made to feel afraid or neglected: No Are you DNR?: No Advance Directives: No Advance Directives Information Provided: Yes Advance Directives on File: No Do you have thoughts of harming others: None Do you have a plan to hurt others: No Plan Recently lost weight without trying: No Nutrition Risks: No Nutritional Risk Poor oral hygiene: No service: No Sexual orientation: Decline to Answer Meds Allergies Allergy/AdvReac Type Severity Reaction Status Date / Time No Known Allergies Allergy Verified 10/31/22 14:47 Active Medications: Current Medications Acetaminophen (Acetaminophen 325 Mg Tablet) 650 mg PO Q6H PRN PRN Reason: Headache/Pain Mild Scale (1-3) Last Admin: 01/05/23 19:46 Dose: 650 mg Acetaminophen (Acetaminophen 325 Mg Tablet) 650 mg PO ONCE PRN PRN Reason: Pain, Mild (Pain Scale 1-3) Al Hydroxide/Mg Hydroxide (Magnesium Hydrox/Alum Hydrox 30 Ml Oral.Susp) 30 ml PO Q6H PRN PRN Reason: Heartburn/Nausea Artificial Tears (Artificial Tears 15 Ml Drops) 2 drop EYE-BOTH Q4H PRN PRN Reason: Dry Eyes Last Admin: 12/02/22 14:19 Dose: 2 drop Benzocaine (Throat Lozenge, Medicated Lozenge) 1 lozenge MUCOUS MEM Q2H PRN PRN Reason: Sore Throat Last Admin: 12/29/22 12:23 Dose: 1 lozenge Fluoxetine HCl (Fluoxetine Hcl 20 Mg Capsule) 40 mg PO DAILY [facility] Last Admin: 01/11/23 08:49 Dose: 40 mg Hydroxyzine HCl (Hydroxyzine Hcl 25 Mg Tablet) 25 mg PO Q6H PRN PRN Reason: Anxiety Last Admin: 01/06/23 15:53 Dose: 25 mg Magnesium Hydroxide (Milk Of Magnesia 30 Ml Oral.Susp) 30 ml PO DAILY PRN PRN Reason: Constipation Olanzapine (Olanzapine 5 Mg Tablet) 5 mg PO BEDTIME [facility] Last Admin: 01/11/23 20:33 Dose: 5 mg Ondansetron HCl (Ondansetron Hcl 4 Mg/2 Ml Vial) 4 mg IVPUSH ONCE PRN PRN Reason: Nausea and Vomiting Sodium Chloride (0.9 % Sodium Chloride Flush 10 Ml Syringe) 10 ml IVFLUSH Q8H [facility] Last Admin: 01/11/23 23:05 Dose: 10 ml Trazodone HCl (Trazodone Hcl 50 Mg Tablet) 50 mg PO BEDTIME PRN PRN Reason: Insomnia Home Medications Medication Instructions Recorded Confirmed Last Taken Type No Known Home Meds 10/31/22 11/04/22 Unknown History Exam Exam Date and Time: January 12, 2023 0749 Height,Weight and Vital Signs: Height 6 ft Weight 75.82 kg Last Vital Signs Temp 97 F 01/12/23 07:04 Pulse 77 01/12/23 07:04 Resp 18 01/12/23 07:04 BP 126/78 01/12/23 07:04 Pulse Ox 99 01/12/23 07:04 O2 Del Method Room Air 01/12/23 07:04 O2 Flow Rate 2 01/10/23 07:46 Pertinent Lab Results Pertinent Lab Results: Laboratory Tests 11/03/22 11/05/22 11/08/22 15:48 12:58 15:07 Sodium 142 140 Potassium 4.1 D 4.1 Chloride 108 105 Carbon Dioxide 26 28 Anion Gap 12 11 L BUN 23 H 15 Creatinine 0.73 0.83 0.72 Estim Creat Clear Calc TNP TNP TNP Estimated GFR > 60 > 60 > 60 Random Glucose 97 95 Calcium 9.1 9.7 D Total Bilirubin AST ALT Alkaline Phosphatase Total Protein Albumin 11/13/22 11/16/22 11/22/22 08:00 08:11 11:55 Sodium 140 138 137 Potassium 4.8 4.9 4.5 Chloride 103 106 106 Carbon Dioxide 22 22 25 Anion Gap 20 15 11 L BUN 25 H 16 16 Creatinine 1.07 0.97 0.86 Estim Creat Clear Calc TNP TNP TNP Estimated GFR > 60 > 60 > 60 Random Glucose 73 89 93 Calcium 10.0 9.6 9.9 Total Bilirubin 0.9 0.9 AST 21 22 ALT 16 15 Alkaline Phosphatase 62 59 Total Protein 7.1 6.8 Albumin 4.0 3.6 12/03/22 12/15/22 12/23/22 07:45 09:53 17:51 Sodium 139 139 139 Potassium 4.8 4.3 4.2 Chloride 107 106 104 Carbon Dioxide 24 23 23 Anion Gap 13 14 16 BUN 13 11 11 Creatinine 0.73 0.74 0.77 Estim Creat Clear Calc TNP TNP TNP Estimated GFR > 60 > 60 > 60 Random Glucose 103 86 79 Calcium 9.3 D 9.3 9.8 Total Bilirubin 0.5 0.7 0.8 AST 25 18 24 ALT 20 16 16 Alkaline Phosphatase 47 55 68 Total Protein 6.4 L 6.5 7.1 Albumin 3.5 3.6 4.0 Airway Mallampati Class: II TM Dist: >3cm Neck ROM: Full Loose/Missing/Broken Teeth: No Heart: RRR Lungs: CTAB Assessment and Plan Assessment Anesthesia Assessment: Anesthesia Plan Discussed and Chart Reviewed Final Anesthetic Review Family History of Problems with Anesthesia: No History of Problems with Anesthesia: No NPO: Yes ASA Class: III Final Preanesthetic Review: No Changes in Pt Med Stat, Meds/Allgs Chart Reviewed, Consent Obtained/Reviewed and Anes Risks/Benef Reviewed Patient Risk: Intermediate Procedure Risk: Intermediate Assessment/Block/Sedation in SS: Assess/Block/Sedation- Anesthetic Plan Anesthetic Plan: GA Disposition: Standard PACU
[2023-01-12] MEDS: FLUoxetine HCl 20 MG CAPSULE 40 MG PO (09:48)
--- NOTE | 2023-01-12 12:20 | HO.PSYCHPN ---
Subjective Subjective Date of Service: 01/12/23 Reason For Visit: catatonia Interim History: lying in bed, awake. stable presentation. denies issues with ECT this morning. planning to call his sister today. per staff, denies anx/dep. no AH. visible, social. attending groups. sleeping, good ADLs. med-compliant. midline non-patent this morning at ECT. Mental Status Exam Mental Status Exam Narrative: improving self-care. up and about the unit, engaging in more programming and social activities. cooperative. speech soft, decr amount, flattened prosody. thoughts linear and logical. affect constricted and hypo-intense. no SI/HI/AVH expressed. Insight and judgment appears limited. Diagnostics Vital Signs (24Hr): Vital Signs - 24 hr 01/11/23 19:55 01/12/23 06:02 01/12/23 07:04 Temperature 98.5 F 97.9 F 97 F Pulse Rate 99 91 77 Respiratory Rate 16 16 18 Blood Pressure 124/65 130/78 126/78 Pulse Oximetry 98 99 Oxygen Delivery Method Room Air Room Air Oxygen Flow Rate 01/12/23 08:30 01/12/23 08:35 01/12/23 08:40 Temperature 98.9 F Pulse Rate 99 90 88 Respiratory Rate 16 16 16 Blood Pressure 140/93 H 139/89 131/74 Pulse Oximetry 94 95 96 Oxygen Delivery Method Nasal Cannula with ETCO2 Nasal Cannula with ETCO2 Nasal Cannula with ETCO2 Oxygen Flow Rate 3 3 3 01/12/23 08:45 01/12/23 09:00 01/12/23 10:14 Temperature 98.2 F 97.7 F Pulse Rate 94 72 92 Respiratory Rate 16 16 18 Blood Pressure 115/70 120/82 126/78 Pulse Oximetry 95 96 100 Oxygen Delivery Method Room Air Room Air Oxygen Flow Rate BMI result Body Mass Index 22.7 Labs 12/23/22 17:51 Medications Medications Current Medications Acetaminophen (Acetaminophen 325 Mg Tablet) 650 mg PO Q6H PRN PRN Reason: Headache/Pain Mild Scale (1-3) Last Admin: 01/05/23 19:46 Dose: 650 mg Acetaminophen (Acetaminophen 325 Mg Tablet) 650 mg PO ONCE PRN PRN Reason: Pain, Mild (Pain Scale 1-3) Al Hydroxide/Mg Hydroxide (Magnesium Hydrox/Alum Hydrox 30 Ml Oral.Susp) 30 ml PO Q6H PRN PRN Reason: Heartburn/Nausea Artificial Tears (Artificial Tears 15 Ml Drops) 2 drop EYE-BOTH Q4H PRN PRN Reason: Dry Eyes Last Admin: 12/02/22 14:19 Dose: 2 drop Benzocaine (Throat Lozenge, Medicated Lozenge) 1 lozenge MUCOUS MEM Q2H PRN PRN Reason: Sore Throat Last Admin: 12/29/22 12:23 Dose: 1 lozenge Fluoxetine HCl (Fluoxetine Hcl 20 Mg Capsule) 40 mg PO DAILY [facility] Last Admin: 01/12/23 09:48 Dose: 40 mg Hydroxyzine HCl (Hydroxyzine Hcl 25 Mg Tablet) 25 mg PO Q6H PRN PRN Reason: Anxiety Last Admin: 01/06/23 15:53 Dose: 25 mg Lactated Ringer's (Lr) 1,000 mls @ 50 mls/hr IVCONT .Q20H [facility] Magnesium Hydroxide (Milk Of Magnesia 30 Ml Oral.Susp) 30 ml PO DAILY PRN PRN Reason: Constipation Olanzapine (Olanzapine 5 Mg Tablet) 5 mg PO BEDTIME [facility] Last Admin: 01/11/23 20:33 Dose: 5 mg Ondansetron HCl (Ondansetron Hcl 4 Mg/2 Ml Vial) 4 mg IVPUSH ONCE PRN PRN Reason: Nausea and Vomiting Sodium Chloride (0.9 % Sodium Chloride Flush 10 Ml Syringe) 10 ml IVFLUSH Q8H [facility] Last Admin: 01/12/23 09:47 Dose: Not Given Trazodone HCl (Trazodone Hcl 50 Mg Tablet) 50 mg PO BEDTIME PRN PRN Reason: Insomnia Allergies Allergies Allergy/AdvReac Type Severity Reaction Status Date / Time No Known Allergies Allergy Verified 10/31/22 14:47 Assessment & Plan Assessment & Plan (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 11/04: pt refusing meds and not taking anything PO. nevertheless appears slightly improved from yesterday, more verbal with less latency of response. advised to take meds and fluids. 11/05: ate and drank some last night. refusing meds. no longer grossly catatonic. continue current mgmt. 11/06: no PO intake in past 24H. refusing meds. parnell warning, 3-day up wed. 11/07: no food, had some water last night. recheck BMP. completed commitment paperwork. refusing meds. 11/08: denies eating or drinking but yesterday's breakfast tray was empty on return. commitment filed. refusing meds. 11/09: continues without PO intake, not attending to ADLs. refusing meds. hearing scheduled for next . labs from yesterday not indicative of concerning dehydration. 11/10 continue tx. more talkative, although guarded. No overt delusional content reported. denies SI/HI. 11/11: will order CMP for tomorrow morning given uncertainty ref PO intake 11/13: increase in BUN and Cr due to dehydration 11/14: continue tx. refuses medications but unable to provide explanation as to why not show understanding in terms of effects of decrease oral intake on renal function. 11/15: unchanged from last week. intermittent meals, BUN mildly elevated. court tomorrow. 11/16: court deferred for BEHZAD. no change in presentation. place on 1:1 for observation of PO intake. lying all day in bed, PMR, with shades drawn, for a darkened room. refusing medications. 11/17: DC olanzapine. offer SSRI. eating and drinking this morning, after having been put on 1:1. continue current mgmt. commitment hearing likely next . 11/18: refusing to look at or speak with MD. clearly ate and drank more yesterday, up and out of room more. nevertheless, spends vast majority of his time lying in bed in the dark. refusing meds. 11/19: ate more yesterday and last night. DC 1:1. appearing catatonic today, no eye blink staring at ceiling not responding. 11/20: moderate PO intake yesterday. appearing more catatonic today. continue to offer meds. 11/21: catatonic. no report on sleep or PO intake as pt is off 1:1. continue to offer meds. 11/22: catatonic. labs reassuring. court tomorrow. 11/23: catatonic. committed and ordered meds in court. 11/24: start ativan 2 mg TID with IM back-up for catatonia. plan to start neuroleptics and anti-depressants once catatonia improved. 11/25: decrease ativan to 1mg tid as he had no response to 2 mg and might be experiencing sedation from it 11/26: More alert on lower ativan dose but remains non-verbal and lying in bed 11/27 increase ativan back to 2mg po TID back up IM. 11/28: T/C gaining IV access to facilitate delivery of ativan; plan to increase to QID dosing. remains catatonic. case d/w nursing administration and medical artisttreasury director. 11/29: gain IV access today, start ativan 2 mg IV QID. was out of bed, eating and speaking yesterday evening. 11/30: 1:1 as he removed IV access, apparently. was up in kitchen getting food on evening shift. continue current mgmt. 12/01: up twice in the past 24H, ate some, swore that lights in his room had been turned on. T/C adding valium 2 mg TID IV (per court order, maximum of 8 mg ativan may be given per day) and/or antipsychotic to regimen. case D/W david. 12/02: Check comprehensive metabolic labs in AM. Continue current management. 12/03: Improved post IM dose of Zyprexa last night. Ate better. More communicative. Continue current plan of care. 12/04: some improvement over w/e. increase IM zyprexa t HS to 5 mg each. continue current mgmt. 12/05: continue current mgmt. up several times yesterday, had conversation with reza nurse, observed eating dinner. 12/06: less active yesterday. did not receive IM zyprexa last night. continue current mgmt. 12/07: received zyprexa IM last night. up for breakfast this morning, exchanged some words with MD for first time in weeks. indicated he has a depressed mood. not opposed to anti-depressant. will start prozac liquid daily. 12/08: lying in bed, not responsive. several interactions with staff yesterday, limited and often non-verbal. refused PO prozac. continue current mgmt. 12/09: still catatonic. 12/10 still catatonic 12/11/22 Patient intermittently responsive often refusing p.o. meds may require ECT 12/12/2022 Patient remains mostly electively mute intermittently catatonic with some periods of verbal discourse 12/13/22 more verbal hx of recurrent depression still gets iv ativan refuses po meds 12 14 22 Continue Ativan and intravenous is encouraged fluoxetine continue olanzapine 5 mg patient does not appear to be psychotic would encourage ECT 12/15/2022 Continue plan of care labs reviewed sodium creatinine within normal limits 12/16: Continue current regimen and plans. Switch Zyprexa to a.m. use. 12/17: Continue current regimen and plans. Decrease Ativan by 2 mg and increase Zyprexa by 10 mg 12/18: continue current regimen. no change in catatonic presentation. 12/19: return ativan to 2 mg QID and zyprexa to 10 mg QHS only. 12/20: due to possibility of akathisia from zyprexa, will try lower potency anti-psychotic, thorazine. DC zyprexa and start thorazine 100 mg PO QHS with 50 mg IM if refuses PO. 12/21: received thorazine last NOC, IM. ate dinner and spoke with EMERY cobb. generally no improvement, no change in presentation. 12/22: awake briefly this morning, endorsing depression. vague, unable to state preference for Tx. continue current mgmt. hearing scheduled for next sunday re ECT. 12/23 ck labs consider iv fluids get med clearance ect 12/24/2022 Of Thorazine discontinued has not been effective can lower blood pressure and someone already with periods of dehydration strongly would benefit from ECT trial 12/25: continue current mgmt. up briefly today to move rooms. ate 3 meals yesterday, reportedly. hearing tomorrow for ECT. 12/26: staring today, no responses. hearing held today, judgment pending. decrease ativan to 2 mg TID in anticipation of ECT. medical clearance and EKG ordered. 12/26: staring today, no responses. IV access lost, will give IM ativan until IV access regained. awaiting word from court on ECT. 12/27: medically cleared for ECT, court ordered ECT. start ECT tomorrow. case d/w david in detail. taper ativan to 4 mg today, may need flumazenil tomorrow prior to ECT. continue ativan taper over w/e. 12/29: ECT #1 completed, clear improvement in mental status and insight. continue ativan taper. ECT #2 on sunday. 12/30: took PO meds yesterday morning after ECT, refusing since. continue current mgmt. 12/31: continue ativan taper. awake and verbal today. not eating or taking meds PO. ECT #2 tomorrow. 01/01: missed morning ECT due to inability to gain IV access. U/S guided IV inserted, will go for anoon ECT. PMR, inert, lying in bed; awake, however, and able to exchange a few words. 01/02 yesterday he had a he has ECT in the evening. Slight improvement. We added a midline IV access sings we could not get an IV access on the previous ECT easily. ECT tomorrow AM. 01/03: ECT #3 completed this morning. remains more alert and responsive than prior, yet still very poor PO intake and refusing PO meds. continue current mgmt. 01/04: remains alert and interactive. still PMR, poor appetite. ECT scheduled for tomorrow. 01/05: ECT #4 completed, continues more alert and engageable than prior to start of ECT. still not doing ADLs, not eating/drinking adequately. ECT #5 on sunday. 01/06: ECT #5 Sunday. Improved (known to this technical writer from interaction over a month ago.). Continue current treatment plan. 01/07: Continue current management. 01/08: s/p ECT #5. improvements continue. trimmed gallegos, ate 3 meals yesterday, taking PO meds. ECT #6 . 01/09: informed SW that while catatonic had been hearing the voice of god telling him not to eat or he would go to hell. clinical presentation as per yesterday. ECT #6 tomorrow. concerned ECT is erasing [his] mind. 01/10: notably more social and visible in the milieu today. start zyprexa 5 at bedtime and increase prozac from 20 mg daily to 40 mg daily as of tomorrow. ECT #6 completed. 01/11: stably improved presentation. ECT #7 tomorrow. continue current mgmt. 01/12: ECT #7 completed without complication. stable gains. continue current mgmt. Reason for continued inpatient stay Substantial Risk for: inability to function and rapid decompensation Time Spent With Patient Time: Total time managing care of this patient today ____ minutes.
--- NOTE | 2023-01-12 14:35 | PC.NURSE ---
per ECT nurse report, midline is not flushing. Md notified and new line will be put in by radiology.
[2023-01-12] MEDS: OLANZapine 5 MG TABLET PO (22:43)
[2023-01-13 08:00] VITALS: BP 154/76; PULSE 97; RESP 18; TEMP 36.2; O2SAT 98
[2023-01-13] MEDS: FLUoxetine HCl 20 MG CAPSULE 40 MG PO (08:54)
--- NOTE | 2023-01-13 10:33 | P.PNPSI_ITS ---
Subjective Subjective Date of Service: 01/13/23 Reason For Visit: catatonia Subjective Notes: Section 8 Interim History: Patient was seen and discussed in rounds today. Records and plans were reviewed. He has been showing signs of improvement. He is medication c ompliant, visible and more social. He is going through the ECT treatments, #7. No complaints. No changes were made. His medication port is not flushing and I spoke with the hospitalist who is going to order heparin flush. Medication Compliance: Yes Side effects from medications: No Attending Groups: Intermittent Review of Systems Review of Systems Yes all other systems are reviewed and are negative Mental Status Exam Mental Status Exam Narrative: In today's visit he is alert, oriented and pleasant. Soft-spoken speech. Moderate eye contact. Affect is subdued and constricted. No acute signs of psychosis. No AVH. No SI. Cognitively thought processes are goal directed and linear. Judgment is marginal intact Diagnostics Vital Signs (24Hr): Vital Signs - 24 hr 01/13/23 08:00 Temperature 97.2 F Pulse Rate 97 Respiratory Rate 18 Blood Pressure 154/76 H Pulse Oximetry 98 Oxygen Delivery Method Room Air BMI result Body Mass Index 22.7 Labs 12/23/22 17:51 Medications Medications Current Medications Acetaminophen (Acetaminophen 325 Mg Tablet) 650 mg PO Q6H PRN PRN Reason: Headache/Pain Mild Scale (1-3) Last Admin: 01/05/23 19:46 Dose: 650 mg Acetaminophen (Acetaminophen 325 Mg Tablet) 650 mg PO ONCE PRN PRN Reason: Pain, Mild (Pain Scale 1-3) Al Hydroxide/Mg Hydroxide (Magnesium Hydrox/Alum Hydrox 30 Ml Oral.Susp) 30 ml PO Q6H PRN PRN Reason: Heartburn/Nausea Artificial Tears (Artificial Tears 15 Ml Drops) 2 drop EYE-BOTH Q4H PRN PRN Reason: Dry Eyes Last Admin: 12/02/22 14:19 Dose: 2 drop Benzocaine (Throat Lozenge, Medicated Lozenge) 1 lozenge MUCOUS MEM Q2H PRN PRN Reason: Sore Throat Last Admin: 12/29/22 12:23 Dose: 1 lozenge Fluoxetine HCl (Fluoxetine Hcl 20 Mg Capsule) 40 mg PO DAILY GABRIEL Last Admin: 01/13/23 08:54 Dose: 40 mg Hydroxyzine HCl (Hydroxyzine Hcl 25 Mg Tablet) 25 mg PO Q6H PRN PRN Reason: Anxiety Last Admin: 01/06/23 15:53 Dose: 25 mg Lactated Ringer's (Lr) 1,000 mls @ 50 mls/hr IVCONT .Q20H [facility] Last Admin: 01/13/23 08:02 Dose: Not Given Magnesium Hydroxide (Milk Of Magnesia 30 Ml Oral.Susp) 30 ml PO DAILY PRN PRN Reason: Constipation Olanzapine (Olanzapine 5 Mg Tablet) 5 mg PO BEDTIME [facility] Last Admin: 01/12/23 22:43 Dose: 5 mg Ondansetron HCl (Ondansetron Hcl 4 Mg/2 Ml Vial) 4 mg IVPUSH ONCE PRN PRN Reason: Nausea and Vomiting Sodium Chloride (0.9 % Sodium Chloride Flush 10 Ml Syringe) 10 ml IVFLUSH Q8H [facility] Last Admin: 01/13/23 08:02 Dose: Not Given Trazodone HCl (Trazodone Hcl 50 Mg Tablet) 50 mg PO BEDTIME PRN PRN Reason: Insomnia Allergies Allergies Allergy/AdvReac Type Severity Reaction Status Date / Time No Known Allergies Allergy Verified 10/31/22 14:47 Assessment & Plan Assessment & Plan (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 11/04: pt refusing meds and not taking anything PO. nevertheless appears slightly improved from yesterday, more verbal with less latency of response. advised to take meds and fluids. 11/05: ate and drank some last night. refusing meds. no longer grossly catatonic. continue current mgmt. 11/06: no PO intake in past 24H. refusing meds. parnell warning, 3-day up wed. 11/07: no food, had some water last night. recheck BMP. completed commitment paperwork. refusing meds. 11/08: denies eating or drinking but yesterday's breakfast tray was empty on return. commitment filed. refusing meds. 11/09: continues without PO intake, not attending to ADLs. refusing meds. hearing scheduled for next . labs from yesterday not indicative of concerning dehydration. 11/10 continue tx. more talkative, although guarded. No overt delusional content reported. denies SI/HI. 11/11: will order CMP for tomorrow morning given uncertainty ref PO intake 11/13: increase in BUN and Cr due to dehydration 11/14: continue tx. refuses medications but unable to provide explanation as to why not show understanding in terms of effects of decrease oral intake on renal function. 11/15: unchanged from last week. intermittent meals, BUN mildly elevated. court tomorrow. 11/16: court deferred for BEHZAD. no change in presentation. place on 1:1 for observation of PO intake. lying all day in bed, PMR, with shades drawn, for a darkened room. refusing medications. 11/17: DC olanzapine. offer SSRI. eating and drinking this morning, after having been put on 1:1. continue current mgmt. commitment hearing likely next . 11/18: refusing to look at or speak with MD. clearly ate and drank more yesterday, up and out of room more. nevertheless, spends vast majority of his time lying in bed in the dark. refusing meds. 11/19: ate more yesterday and last night. DC 1:1. appearing catatonic today, no eye blink staring at ceiling not responding. 11/20: moderate PO intake yesterday. appearing more catatonic today. continue to offer meds. 11/21: catatonic. no report on sleep or PO intake as pt is off 1:1. continue to offer meds. 11/22: catatonic. labs reassuring. court tomorrow. 11/23: catatonic. committed and ordered meds in court. 11/24: start ativan 2 mg TID with IM back-up for catatonia. plan to start neuroleptics and anti-depressants once catatonia improved. 11/25: decrease ativan to 1mg tid as he had no response to 2 mg and might be experiencing sedation from it 11/26: More alert on lower ativan dose but remains non-verbal and lying in bed 11/27 increase ativan back to 2mg po TID back up IM. 11/28: T/C gaining IV access to facilitate delivery of ativan; plan to increase to QID dosing. remains catatonic. case d/w nursing administration and medical receptionist assistantactive directory specialist. 11/29: gain IV access today, start ativan 2 mg IV QID. was out of bed, eating and speaking yesterday evening. 11/30: 1:1 as he removed IV access, apparently. was up in kitchen getting food on evening shift. continue current mgmt. 12/01: up twice in the past 24H, ate some, swore that lights in his room had been turned on. T/C adding valium 2 mg TID IV (per court order, maximum of 8 mg ativan may be given per day) and/or antipsychotic to regimen. case D/W ac agus. 12/02: Check comprehensive metabolic labs in AM. Continue current management. 12/03: Improved post IM dose of Zyprexa last night. Ate better. More communicative. Continue current plan of care. 12/04: some improvement over w/e. increase IM zyprexa t HS to 5 mg each. continue current mgmt. 12/05: continue current mgmt. up several times yesterday, had conversation with reza nurse, observed eating dinner. 12/06: less active yesterday. did not receive IM zyprexa last night. continue current mgmt. 12/07: received zyprexa IM last night. up for breakfast this morning, exchanged some words with MD for first time in weeks. indicated he has a depressed mood. not opposed to anti-depressant. will start prozac liquid daily. 12/08: lying in bed, not responsive. several interactions with staff yesterday, limited and often non-verbal. refused PO prozac. continue current mgmt. 12/09: still catatonic. 12/10 still catatonic 12/11/22 Patient intermittently responsive often refusing p.o. meds may require ECT 12/12/2022 Patient remains mostly electively mute intermittently catatonic with some periods of verbal discourse 12/13/22 more verbal hx of recurrent depression still gets iv ativan refuses po meds 12 14 22 Continue Ativan and intravenous is encouraged fluoxetine continue olanzapine 5 mg patient does not appear to be psychotic would encourage ECT 12/15/2022 Continue plan of care labs reviewed sodium creatinine within normal limits 12/16: Continue current regimen and plans. Switch Zyprexa to a.m. use. 12/17: Continue current regimen and plans. Decrease Ativan by 2 mg and increase Zyprexa by 10 mg 12/18: continue current regimen. no change in catatonic presentation. 12/19: return ativan to 2 mg QID and zyprexa to 10 mg QHS only. 12/20: due to possibility of akathisia from zyprexa, will try lower potency anti- psychotic, thorazine. DC zyprexa and start thorazine 100 mg PO QHS with 50 mg IM if refuses PO. 12/21: received thorazine last NOC, IM. ate dinner and spoke with EMERY cobb. generally no improvement, no change in presentation. 12/22: awake briefly this morning, endorsing depression. vague, unable to state preference for Tx. continue current mgmt. hearing scheduled for next sunday re ECT. 12/23 ck labs consider iv fluids get med clearance ect 12/24/2022 Of Thorazine discontinued has not been effective can lower blood pressure and someone already with periods of dehydration strongly would benefit from ECT trial 12/25: continue current mgmt. up briefly today to move rooms. ate 3 meals yesterday, reportedly. hearing tomorrow for ECT. 12/26: staring today, no responses. hearing held today, judgment pending. decrease ativan to 2 mg TID in anticipation of ECT. medical clearance and EKG ordered. 12/26: staring today, no responses. IV access lost, will give IM ativan until IV access regained. awaiting word from court on ECT. 12/27: medically cleared for ECT, court ordered ECT. start ECT tomorrow. case d/w david in detail. taper ativan to 4 mg today, may need flumazenil tomorrow prior to ECT. continue ativan taper over w/e. 12/29: ECT #1 completed, clear improvement in mental status and insight. continue ativan taper. ECT #2 on sunday. 12/30: took PO meds yesterday morning after ECT, refusing since. continue current mgmt. 12/31: continue ativan taper. awake and verbal today. not eating or taking meds PO. ECT #2 tomorrow. 01/01: missed morning ECT due to inability to gain IV access. U/S guided IV inserted, will go for anoon ECT. PMR, inert, lying in bed; awake, however, and able to exchange a few words. 01/02 yesterday he had a he has ECT in the evening. Slight improvement. We added a midline IV access sings we could not get an IV access on the previous ECT easily. ECT tomorrow AM. 01/03: ECT #3 completed this morning. remains more alert and responsive than prior, yet still very poor PO intake and refusing PO meds. continue current mgmt. 01/04: remains alert and interactive. still PMR, poor appetite. ECT scheduled for tomorrow. 01/05: ECT #4 completed, continues more alert and engageable than prior to start of ECT. still not doing ADLs, not eating/drinking adequately. ECT #5 on sunday. 01/06: ECT #5 Sunday. Improved (known to this credit underwriter from interaction over a month ago.). Continue current treatment plan. 01/07: Continue current management. 01/08: s/p ECT #5. improvements continue. trimmed gallegos, ate 3 meals yesterday, taking PO meds. ECT #6 . 01/09: informed SW that while catatonic had been hearing the voice of god telling him not to eat or he would go to hell. clinical presentation as per . ECT #6 tomorrow. concerned ECT is erasing [his] mind. 01/10: notably more social and visible in the milieu today. start zyprexa 5 at bedtime and increase prozac from 20 mg daily to 40 mg daily as of tomorrow. ECT #6 completed. 01/11: stably improved presentation. ECT #7 tomorrow. continue current mgmt. 01/12: ECT #7 completed without complication. stable gains. continue current mgmt. 01/13: Continue current regimen and plans Reason for continued inpatient stay Substantial Risk for: med/psych decompensation Time Spent With Patient Time: Total time managing care of this patient today ____ minutes.
[2023-01-13] MEDS: 0.9 % Sodium Chloride Flush 10 ML SYRINGE IVFLUSH ×2 (14:48→23:43)
--- NOTE | 2023-01-13 15:02 | PC.NURSE ---
Patient Midline attempted to be flushed with Saline per hospitalist, flushed without difficulty but would not give blood return. Patient declined discomfort stated it felt the same as before. Line remained positional and required patient to have arm elevated to shoulder height. Provider aware
[2023-01-13] MEDS: Heparin Sodium,Porcine Flush 50 UNITS/5 ML SYRINGE IVFLUSH (15:06)
[2023-01-13 21:18] VITALS: BP 130/77; PULSE 109; RESP 18; TEMP 36.6; O2SAT 95
[2023-01-13] MEDS: OLANZapine 5 MG TABLET PO (21:29)
[2023-01-14 08:00] VITALS: BP 125/79; PULSE 90; RESP 18; TEMP 37; O2SAT 97
[2023-01-14] MEDS: 0.9 % Sodium Chloride Flush 10 ML SYRINGE IVFLUSH ×3 (08:35→22:52)
[2023-01-14] MEDS: FLUoxetine HCl 20 MG CAPSULE 40 MG PO (08:35)
--- NOTE | 2023-01-14 08:50 | P.PNPSI_ITS ---
Subjective Subjective Date of Service: 01/14/23 Reason For Visit: catatonia Subjective Notes: Section 8 Interim History: Patient was seen and discussed in rounds today. Records and plans were reviewed. He continues to be stable and is doing better. He is continuing with ECT treatments. He is pleasant and social. No auditory hallucinations. Attending some groups. Med line was flushed with heparin yesterday. No SI. No changes were made today Medication Compliance: Yes Side effects from medications: No Attending Groups: Yes Review of Systems Review of Systems Yes all other systems are reviewed and are negative Mental Status Exam Mental Status Exam Narrative: In today's visit he is alert, oriented and pleasant. Soft-spoken speech. Moderate eye contact. Affect is subdued and constricted. No acute signs of psychosis. No AVH. No SI. Cognitively thought processes are goal directed and linear. Judgment is marginal intact Diagnostics Vital Signs (24Hr): Vital Signs - 24 hr 01/13/23 21:18 Temperature 97.8 F Pulse Rate 109 H Respiratory Rate 18 Blood Pressure 130/77 Pulse Oximetry 95 Oxygen Delivery Method Room Air BMI result Body Mass Index 22.7 Labs 12/23/22 17:51 Medications Medications Current Medications Acetaminophen (Acetaminophen 325 Mg Tablet) 650 mg PO Q6H PRN PRN Reason: Headache/Pain Mild Scale (1-3) Last Admin: 01/05/23 19:46 Dose: 650 mg Acetaminophen (Acetaminophen 325 Mg Tablet) 650 mg PO ONCE PRN PRN Reason: Pain, Mild (Pain Scale 1-3) Al Hydroxide/Mg Hydroxide (Magnesium Hydrox/Alum Hydrox 30 Ml Oral.Susp) 30 ml PO Q6H PRN PRN Reason: Heartburn/Nausea Artificial Tears (Artificial Tears 15 Ml Drops) 2 drop EYE-BOTH Q4H PRN PRN Reason: Dry Eyes Last Admin: 12/02/22 14:19 Dose: 2 drop Benzocaine (Throat Lozenge, Medicated Lozenge) 1 lozenge MUCOUS MEM Q2H PRN PRN Reason: Sore Throat Last Admin: 12/29/22 12:23 Dose: 1 lozenge Fluoxetine HCl (Fluoxetine Hcl 20 Mg Capsule) 40 mg PO DAILY GABRIEL Last Admin: 01/14/23 08:35 Dose: 40 mg Heparin Sodium (Porcine) (Heparin Sodium,Porcine Flush 50 Units/5 Ml Syringe) 50 units IVFLUSH DAILY PRN PRN Reason: occlusion Hydroxyzine HCl (Hydroxyzine Hcl 25 Mg Tablet) 25 mg PO Q6H PRN PRN Reason: Anxiety Last Admin: 01/06/23 15:53 Dose: 25 mg Magnesium Hydroxide (Milk Of Magnesia 30 Ml Oral.Susp) 30 ml PO DAILY PRN PRN Reason: Constipation Olanzapine (Olanzapine 5 Mg Tablet) 5 mg PO BEDTIME [facility] Last Admin: 01/13/23 21:29 Dose: 5 mg Ondansetron HCl (Ondansetron Hcl 4 Mg/2 Ml Vial) 4 mg IVPUSH ONCE PRN PRN Reason: Nausea and Vomiting Sodium Chloride (0.9 % Sodium Chloride Flush 10 Ml Syringe) 10 ml IVFLUSH Q8H [facility] Last Admin: 01/14/23 08:35 Dose: 10 ml Trazodone HCl (Trazodone Hcl 50 Mg Tablet) 50 mg PO BEDTIME PRN PRN Reason: Insomnia Allergies Allergies Allergy/AdvReac Type Severity Reaction Status Date / Time No Known Allergies Allergy Verified 10/31/22 14:47 Assessment & Plan Assessment & Plan (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 11/04: pt refusing meds and not taking anything PO. nevertheless appears slightly improved from yesterday, more verbal with less latency of response. advised to take meds and fluids. 11/05: ate and drank some last night. refusing meds. no longer grossly catatonic. continue current mgmt. 11/06: no PO intake in past 24H. refusing meds. parnell warning, 3-day up . 11/07: no food, had some water last night. recheck BMP. completed commitment paperwork. refusing meds. 11/08: denies eating or drinking but yesterday's breakfast tray was empty on return. commitment filed. refusing meds. 11/09: continues without PO intake, not attending to ADLs. refusing meds. hearing scheduled for next . labs from yesterday not indicative of concerning dehydration. 11/10 continue tx. more talkative, although guarded. No overt delusional content reported. denies SI/HI. 11/11: will order CMP for tomorrow morning given uncertainty ref PO intake 11/13: increase in BUN and Cr due to dehydration 11/14: continue tx. refuses medications but unable to provide explanation as to why not show understanding in terms of effects of decrease oral intake on renal function. 11/15: unchanged from last week. intermittent meals, BUN mildly elevated. court tomorrow. 11/16: court deferred for BEHZAD. no change in presentation. place on 1:1 for observation of PO intake. lying all day in bed, PMR, with shades drawn, for a darkened room. refusing medications. 11/17: DC olanzapine. offer SSRI. eating and drinking this morning, after having been put on 1:1. continue current mgmt. commitment hearing likely next . 11/18: refusing to look at or speak with MD. clearly ate and drank more yesterday, up and out of room more. nevertheless, spends vast majority of his time lying in bed in the dark. refusing meds. 11/19: ate more yesterday and last night. DC 1:1. appearing catatonic today, no eye blink staring at ceiling not responding. 11/20: moderate PO intake yesterday. appearing more catatonic today. continue to offer meds. 11/21: catatonic. no report on sleep or PO intake as pt is off 1:1. continue to offer meds. 11/22: catatonic. labs reassuring. court tomorrow. 11/23: catatonic. committed and ordered meds in court. 11/24: start ativan 2 mg TID with IM back-up for catatonia. plan to start neuroleptics and anti-depressants once catatonia improved. 11/25: decrease ativan to 1mg tid as he had no response to 2 mg and might be experiencing sedation from it 11/26: More alert on lower ativan dose but remains non-verbal and lying in bed 11/27 increase ativan back to 2mg po TID back up IM. 11/28: T/C gaining IV access to facilitate delivery of ativan; plan to increase to QID dosing. remains catatonic. case d/w nursing administration and anesthesiology medical doctorgroundwater programs director. 11/29: gain IV access today, start ativan 2 mg IV QID. was out of bed, eating and speaking yesterday evening. 11/30: 1:1 as he removed IV access, apparently. was up in kitchen getting food on evening shift. continue current mgmt. 12/01: up twice in the past 24H, ate some, swore that lights in his room had been turned on. T/C adding valium 2 mg TID IV (per court order, maximum of 8 mg ativan may be given per day) and/or antipsychotic to regimen. case D/W david. 12/02: Check comprehensive metabolic labs in AM. Continue current management. 12/03: Improved post IM dose of Zyprexa last night. Ate better. More communicative. Continue current plan of care. 12/04: some improvement over w/e. increase IM zyprexa t HS to 5 mg each. continue current mgmt. 12/05: continue current mgmt. up several times yesterday, had conversation with reza nurse, observed eating dinner. 12/06: less active yesterday. did not receive IM zyprexa last night. continue current mgmt. 12/07: received zyprexa IM last night. up for breakfast this morning, exchanged some words with MD for first time in weeks. indicated he has a depressed mood. not opposed to anti-depressant. will start prozac liquid daily. 12/08: lying in bed, not responsive. several interactions with staff yesterday, limited and often non-verbal. refused PO prozac. continue current mgmt. 12/09: still catatonic. 12/10 still catatonic 12/11/22 Patient intermittently responsive often refusing p.o. meds may require ECT 12/12/2022 Patient remains mostly electively mute intermittently catatonic with some periods of verbal discourse 12/13/22 more verbal hx of recurrent depression still gets iv ativan refuses po meds 12 14 22 Continue Ativan and intravenous is encouraged fluoxetine continue olanzapine 5 mg patient does not appear to be psychotic would encourage ECT 12/15/2022 Continue plan of care labs reviewed sodium creatinine within normal limits 12/16: Continue current regimen and plans. Switch Zyprexa to a.m. use. 12/17: Continue current regimen and plans. Decrease Ativan by 2 mg and increase Zyprexa by 10 mg 12/18: continue current regimen. no change in catatonic presentation. 12/19: return ativan to 2 mg QID and zyprexa to 10 mg QHS only. 12/20: due to possibility of akathisia from zyprexa, will try lower potency anti-psychotic, thorazine. DC zyprexa and start thorazine 100 mg PO QHS with 50 mg IM if refuses PO. 12/21: received thorazine last NOC, IM. ate dinner and spoke with EMERY cobb. generally no improvement, no change in presentation. 12/22: awake briefly this morning, endorsing depression. vague, unable to state preference for Tx. continue current mgmt. hearing scheduled for next sunday re ECT. 12/23 ck labs consider iv fluids get med clearance ect 12/24/2022 Of Thorazine discontinued has not been effective can lower blood pressure and someone already with periods of dehydration strongly would benefit from ECT trial 12/25: continue current mgmt. up briefly today to move rooms. ate 3 meals yesterday, reportedly. hearing tomorrow for ECT. 12/26: staring today, no responses. hearing held today, judgment pending. decrease ativan to 2 mg TID in anticipation of ECT. medical clearance and EKG o rdered. 12/26: staring today, no responses. IV access lost, will give IM ativan until IV access regained. awaiting word from court on ECT. 12/27: medically cleared for ECT, court ordered ECT. start ECT tomorrow. case d/w david in detail. taper ativan to 4 mg today, may need flumazenil tomorr ow prior to ECT. continue ativan taper over w/e. 12/29: ECT #1 completed, clear improvement in mental status and insight. continue ativan taper. ECT #2 on sunday. 12/30: took PO meds yesterday morning after ECT, refusing since. continue current mgmt. 12/31: continue ativan taper. awake and verbal today. not eating or taking meds PO. ECT #2 tomorrow. 01/01: missed morning ECT due to inability to gain IV access. U/S guided IV inserted, will go for anoon ECT. PMR, inert, lying in bed; awake, however, and able to exchange a few words. 01/02 yesterday he had a he has ECT in the evening. Slight improvement. We added a midline IV access sings we could not get an IV access on the previous ECT easily. ECT tomorrow AM. 01/03: ECT #3 completed this morning. remains more alert and responsive than prior, yet still very poor PO intake and refusing PO meds. continue current mgmt. 01/04: remains alert and interactive. still PMR, poor appetite. ECT scheduled for tomorrow. 01/05: ECT #4 completed, continues more alert and engageable than prior to start of ECT. still not doing ADLs, not eating/drinking adequately. ECT #5 on sunday. 01/06: ECT #5 Sunday. Improved (known to this video games storywriter from interaction over a month ago.). Continue current treatment plan. 01/07: Continue current management. 01/08: s/p ECT #5. improvements continue. trimmed gallegos, ate 3 meals yesterday, taking PO meds. ECT #6 . 01/09: informed SW that while catatonic had been hearing the voice of god telling him not to eat or he would go to hell. clinical presentation as per yesterday. ECT #6 tomorrow. concerned ECT is erasing [his] mind. 01/10: notably more social and visible in the milieu today. start zyprexa 5 at bedtime and increase prozac from 20 mg daily to 40 mg daily as of tomorrow. ECT #6 completed. 01/11: stably improved presentation. ECT #7 tomorrow. continue current mgmt. 01/12: ECT #7 completed without complication. stable gains. continue current mgmt. 01/13: Continue current regimen and plans 01/14: Continue current plans and regimen Patient educated on: therapeutic strategies Reason for continued inpatient stay Substantial Risk for: rapid decompensation Time Spent With Patient Time: Total time managing care of this patient today ____ minutes.
[2023-01-14] MEDS: Nicotine Polacrilex Lozenge 2 MG LOZENGE BUCCAL (16:13)
[2023-01-14 22:30] VITALS: BP 111/55; PULSE 98; RESP 16; TEMP 36.6; O2SAT 96
[2023-01-14] MEDS: OLANZapine 5 MG TABLET PO (22:47)
[2023-01-15 08:23] VITALS: BP 114/62; PULSE 95; RESP 18; TEMP 36.3; O2SAT 97
[2023-01-15] MEDS: FLUoxetine HCl 20 MG CAPSULE 40 MG PO (09:05)
[2023-01-15] MEDS: Nicotine 7 MG PATCH.TD24 TRANSDERMA (09:05)
[2023-01-15] MEDS: 0.9 % Sodium Chloride Flush 10 ML SYRINGE IVFLUSH ×3 (09:10→22:21)
--- NOTE | 2023-01-15 10:22 | HO.PSYCHPN ---
Subjective Subjective Date of Service: 01/15/23 Reason For Visit: catatonia Subjective Notes: Section 8 Interim History: Patient was seen and discussed in rounds today. Records and plans were reviewed. He has been doing well but continues to be isolative with some social interactions. Last night he requested some nicotine replacement meds which I have ordered. Eating and sleeping adequately. No complaints. No changes were made today Medication Compliance: Yes Side effects from medications: No Attending Groups: Yes Review of Systems Review of Systems Yes all other systems are reviewed and are negative Mental Status Exam Mental Status Exam Narrative: In today's visit he is alert, oriented and pleasant. Soft-spoken speech. Moderate eye contact. Affect is subdued and constricted. No acute signs of psychosis. No AVH. No SI. Cognitively thought processes are goal directed and linear. Judgment is marginal intact Diagnostics Vital Signs (24Hr): Vital Signs - 24 hr 01/14/23 22:30 01/15/23 08:23 Temperature 97.9 F 97.3 F Pulse Rate 98 95 Respiratory Rate 16 18 Blood Pressure 111/55 L 114/62 Pulse Oximetry 96 97 Oxygen Delivery Method Room Air Room Air BMI result Body Mass Index 22.7 Labs 12/23/22 17:51 Medications Medications Current Medications Acetaminophen (Acetaminophen 325 Mg Tablet) 650 mg PO Q6H PRN PRN Reason: Headache/Pain Mild Scale (1-3) Last Admin: 01/05/23 19:46 Dose: 650 mg Acetaminophen (Acetaminophen 325 Mg Tablet) 650 mg PO ONCE PRN PRN Reason: Pain, Mild (Pain Scale 1-3) Al Hydroxide/Mg Hydroxide (Magnesium Hydrox/Alum Hydrox 30 Ml Oral.Susp) 30 ml PO Q6H PRN PRN Reason: Heartburn/Nausea Artificial Tears (Artificial Tears 15 Ml Drops) 2 drop EYE-BOTH Q4H PRN PRN Reason: Dry Eyes Last Admin: 12/02/22 14:19 Dose: 2 drop Benzocaine (Throat Lozenge, Medicated Lozenge) 1 lozenge MUCOUS MEM Q2H PRN PRN Reason: Sore Throat Last Admin: 12/29/22 12:23 Dose: 1 lozenge Fluoxetine HCl (Fluoxetine Hcl 20 Mg Capsule) 40 mg PO DAILY GABRIEL Last Admin: 01/15/23 09:05 Dose: 40 mg Heparin Sodium (Porcine) (Heparin Sodium,Porcine Flush 50 Units/5 Ml Syringe) 50 units IVFLUSH DAILY PRN PRN Reason: occlusion Hydroxyzine HCl (Hydroxyzine Hcl 25 Mg Tablet) 25 mg PO Q6H PRN PRN Reason: Anxiety Last Admin: 01/06/23 15:53 Dose: 25 mg Magnesium Hydroxide (Milk Of Magnesia 30 Ml Oral.Susp) 30 ml PO DAILY PRN PRN Reason: Constipation Nicotine (Nicotine 7 Mg Patch.Td24) 7 mg TRANSDERMA DAILY [facility] Last Admin: 01/15/23 09:05 Dose: 7 mg Nicotine Polacrilex (Nicotine Polacrilex Lozenge 2 Mg Lozenge) 2 mg BUCCAL Q2H PRN PRN Reason: nicotine withdrawal Last Admin: 01/14/23 16:13 Dose: 2 mg Olanzapine (Olanzapine 5 Mg Tablet) 5 mg PO BEDTIME [facility] Last Admin: 01/14/23 22:47 Dose: 5 mg Ondansetron HCl (Ondansetron Hcl 4 Mg/2 Ml Vial) 4 mg IVPUSH ONCE PRN PRN Reason: Nausea and Vomiting Sodium Chloride (0.9 % Sodium Chloride Flush 10 Ml Syringe) 10 ml IVFLUSH Q8H [facility] Last Admin: 01/15/23 09:10 Dose: 10 ml Trazodone HCl (Trazodone Hcl 50 Mg Tablet) 50 mg PO BEDTIME PRN PRN Reason: Insomnia Allergies Allergies Allergy/AdvReac Type Severity Reaction Status Date / Time No Known Allergies Allergy Verified 10/31/22 14:47 Assessment & Plan Assessment & Plan (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 11/04: pt refusing meds and not taking anything PO. nevertheless appears slightly improved from yesterday, more verbal with less latency of response. advised to take meds and fluids. 11/05: ate and drank some last night. refusing meds. no longer grossly catatonic. continue current mgmt. 11/06: no PO intake in past 24H. refusing meds. parnell warning, 3-day up . 11/07: no food, had some water last night. recheck BMP. completed commitment paperwork. refusing meds. 11/08: denies eating or drinking but yesterday's breakfast tray was empty on return. commitment filed. refusing meds. 11/09: continues without PO intake, not attending to ADLs. refusing meds. hearing scheduled for next . labs from yesterday not indicative of concerning dehydration. 11/10 continue tx. more talkative, although guarded. No overt delusional content reported. denies SI/HI. 11/11: will order CMP for tomorrow morning given uncertainty ref PO intake 11/13: increase in BUN and Cr due to dehydration 11/14: continue tx. refuses medications but unable to provide explanation as to why not show understanding in terms of effects of decrease oral intake on renal function. 11/15: unchanged from last week. intermittent meals, BUN mildly elevated. court tomorrow. 11/16: court deferred for BEHZAD. no change in presentation. place on 1:1 for observation of PO intake. lying all day in bed, PMR, with shades drawn, for a darkened room. refusing medications. 11/17: DC olanzapine. offer SSRI. eating and drinking this morning, after having been put on 1:1. continue current mgmt. commitment hearing likely next . 11/18: refusing to look at or speak with MD. clearly ate and drank more yesterday, up and out of room more. nevertheless, spends vast majority of his time lying in bed in the dark. refusing meds. 11/19: ate more yesterday and last night. DC 1:1. appearing catatonic today, no eye blink staring at ceiling not responding. 11/20: moderate PO intake yesterday. appearing more catatonic today. continue to offer meds. 11/21: catatonic. no report on sleep or PO intake as pt is off 1:1. continue to offer meds. 11/22: catatonic. labs reassuring. court tomorrow. 11/23: catatonic. committed and ordered meds in court. 11/24: start ativan 2 mg TID with IM back-up for catatonia. plan to start neuroleptics and anti-depressants once catatonia improved. 11/25: decrease ativan to 1mg tid as he had no response to 2 mg and might be experiencing sedation from it 11/26: More alert on lower ativan dose but remains non-verbal and lying in bed 11/27 increase ativan back to 2mg po TID back up IM. 11/28: T/C gaining IV access to facilitate delivery of ativan; plan to increase to QID dosing. remains catatonic. case d/w nursing administration and medical unit secretaryplacement director. 11/29: gain IV access today, start ativan 2 mg IV QID. was out of bed, eating and speaking yesterday evening. 11/30: 1:1 as he removed IV access, apparently. was up in kitchen getting food on evening shift. continue current mgmt. 12/01: up twice in the past 24H, ate some, swore that lights in his room had been turned on. T/C adding valium 2 mg TID IV (per court order, maximum of 8 mg ativan may be given per day) and/or antipsychotic to regimen. case D/W david. 12/02: Check comprehensive metabolic labs in AM. Continue current management. 12/03: Improved post IM dose of Zyprexa last night. Ate better. More communicative. Continue current plan of care. 12/04: some improvement over w/e. increase IM zyprexa t HS to 5 mg each. continue current mgmt. 12/05: continue current mgmt. up several times yesterday, had conversation with reza nurse, observed eating dinner. 12/06: less active yesterday. did not receive IM zyprexa last night. continue current mgmt. 12/07: received zyprexa IM last night. up for breakfast this morning, exchanged some words with MD for first time in weeks. indicated he has a depressed mood. not opposed to anti-depressant. will start prozac liquid daily. 12/08: lying in bed, not responsive. several interactions with staff yesterday, limited and often non-verbal. refused PO prozac. continue current mgmt. 12/09: still catatonic. 12/10 still catatonic 12/11/22 Patient intermittently responsive often refusing p.o. meds may require ECT 12/12/2022 Patient remains mostly electively mute intermittently catatonic with some periods of verbal discourse 12/13/22 more verbal hx of recurrent depression still gets iv ativan refuses po meds 12 14 22 Continue Ativan and intravenous is encouraged fluoxetine continue olanzapine 5 mg patient does not appear to be psychotic would encourage ECT 12/15/2022 Continue plan of care labs reviewed sodium creatinine within normal limits 12/16: Continue current regimen and plans. Switch Zyprexa to a.m. use. 12/17: Continue current regimen and plans. Decrease Ativan by 2 mg and increase Zyprexa by 10 mg 12/18: continue current regimen. no change in catatonic presentation. 12/19: return ativan to 2 mg QID and zyprexa to 10 mg QHS only. 12/20: due to possibility of akathisia from zyprexa, will try lower potency anti-psychotic, thorazine. DC zyprexa and start thorazine 100 mg PO QHS with 50 mg IM if refuses PO. 12/21: received thorazine last NOC, IM. ate dinner and spoke with EMERY cobb. generally no improvement, no change in presentation. 12/22: awake briefly this morning, endorsing depression. vague, unable to state preference for Tx. continue current mgmt. hearing scheduled for next sunday re ECT. 12/23 ck labs consider iv fluids get med clearance ect 12/24/2022 Of Thorazine discontinued has not been effective can lower blood pressure and someone already with periods of dehydration strongly would benefit from ECT trial 12/25: continue current mgmt. up briefly today to move rooms. ate 3 meals yesterday, reportedly. hearing tomorrow for ECT. 12/26: staring today, no responses. hearing held today, judgment pending. decrease ativan to 2 mg TID in anticipation of ECT. medical clearance and EKG ordered. 12/26: staring today, no responses. IV access lost, will give IM ativan until IV access regained. awaiting word from court on ECT. 12/27: medically cleared for ECT, court ordered ECT. start ECT tomorrow. case d/w david in detail. taper ativan to 4 mg today, may need flumazenil tomorrow prior to ECT. continue ativan taper over w/e. 12/29: ECT #1 completed, clear improvement in mental status and insight. continue ativan taper. ECT #2 on sunday. 12/30: took PO meds yesterday morning after ECT, refusing since. continue current mgmt. 12/31: continue ativan taper. awake and verbal today. not eating or taking meds PO. ECT #2 tomorrow. 01/01: missed morning ECT due to inability to gain IV access. U/S guided IV inserted, will go for anoon ECT. PMR, inert, lying in bed; awake, however, and able to exchange a few words. 01/02 yesterday he had a he has ECT in the evening. Slight improvement. We added a midline IV access sings we could not get an IV access on the previous ECT easily. ECT tomorrow AM. 01/03: ECT #3 completed this morning. remains more alert and responsive than prior, yet still very poor PO intake and refusing PO meds. continue current mgmt. 01/04: remains alert and interactive. still PMR, poor appetite. ECT scheduled for tomorrow. 01/05: ECT #4 completed, continues more alert and engageable than prior to start of ECT. still not doing ADLs, not eating/drinking adequately. ECT #5 on sunday. 01/06: ECT #5 Sunday. Improved (known to this public relations writer from interaction over a month ago.). Continue current treatment plan. 01/07: Continue current management. 01/08: s/p ECT #5. improvements continue. trimmed gallegos, ate 3 meals yesterday, taking PO meds. ECT #6 . 01/09: informed SW that while catatonic had been hearing the voice of god telling him not to eat or he would go to hell. clinical presentation as per yesterday. ECT #6 tomorrow. concerned ECT is erasing [his] mind. 01/10: notably more social and visible in the milieu today. start zyprexa 5 at bedtime and increase prozac from 20 mg daily to 40 mg daily as of tomorrow. ECT #6 completed. 01/11: stably improved presentation. ECT #7 tomorrow. continue current mgmt. 01/12: ECT #7 completed without complication. stable gains. continue current mgmt. 9/2: Continue current regimen and plans 01/14: Continue current plans and regimen 01/15: Continue current regimen and plans Reason for continued inpatient stay Substantial Risk for: rapid decompensation Time Spent With Patient Time: Total time managing care of this patient today ____ minutes.
[2023-01-15] MEDS: hydrOXYzine HCL 25 MG TABLET PO (10:46)
--- NOTE | 2023-01-15 13:51 | PC.NURSE ---
Patients mid-line was flushed with 10ml's saline per order, flushed without difficulty but, no blood return, MD aware. Patient declines discomfort states, it feels normal, I can taste it. Line to be changes 01/16/23.
[2023-01-15] MEDS: OLANZapine 5 MG TABLET PO (22:20)
[2023-01-15 22:26] VITALS: BP 133/89; PULSE 93; TEMP 36.6; O2SAT 96
[2023-01-16] MEDS: Nicotine 7 MG PATCH.TD24 TRANSDERMA (08:16)
[2023-01-16] MEDS: FLUoxetine HCl 20 MG CAPSULE 40 MG PO (08:17)
[2023-01-16] MEDS: 0.9 % Sodium Chloride Flush 10 ML SYRINGE IVFLUSH ×3 (08:43→22:52)
[2023-01-16 08:50] VITALS: BP 136/74; PULSE 92; RESP 20; TEMP 37.2; O2SAT 96
--- NOTE | 2023-01-16 14:06 | P.PNPSI_ITS ---
Subjective Subjective Date of Service: 01/16/23 Reason For Visit: catatonia Interim History: up and about the unit, pleasant. met with MD in interview room for the first time today. discussing discharge plans, number of ECT sessions left to do. per staff, pleasant, attending groups, eating well, sleeping well. anxious eves, depression OK. feeling a lot of energy. midline to be changed today in anticipation of ECT tomorrow. Mental Status Exam Mental Status Exam Narrative: improving self-care. up and about the unit, engaging in more programming and social activities. cooperative. speech soft, nml amount, flattened prosody. thoughts linear and logical. affect constricted and hypo-intense. mood good. no SI/HI/AVH expressed. Insight and judgment appears limited. Diagnostics Vital Signs (24Hr): Vital Signs - 24 hr 01/15/23 22:26 01/16/23 08:50 Temperature 97.9 F 99.0 F Pulse Rate 93 92 Respiratory Rate 20 Blood Pressure 133/89 136/74 Pulse Oximetry 96 96 Oxygen Delivery Method Room Air Room Air BMI result Body Mass Index 22.7 Labs 12/23/22 17:51 Medications Medications Current Medications Acetaminophen (Acetaminophen 325 Mg Tablet) 650 mg PO Q6H PRN PRN Reason: Headache/Pain Mild Scale (1-3) Last Admin: 01/05/23 19:46 Dose: 650 mg Acetaminophen (Acetaminophen 325 Mg Tablet) 650 mg PO ONCE PRN PRN Reason: Pain, Mild (Pain Scale 1-3) Al Hydroxide/Mg Hydroxide (Magnesium Hydrox/Alum Hydrox 30 Ml Oral.Susp) 30 ml PO Q6H PRN PRN Reason: Heartburn/Nausea Artificial Tears (Artificial Tears 15 Ml Drops) 2 drop EYE-BOTH Q4H PRN PRN Reason: Dry Eyes Last Admin: 12/02/22 14:19 Dose: 2 drop Benzocaine (Throat Lozenge, Medicated Lozenge) 1 lozenge MUCOUS MEM Q2H PRN PRN Reason: Sore Throat Last Admin: 12/29/22 12:23 Dose: 1 lozenge Fluoxetine HCl (Fluoxetine Hcl 20 Mg Capsule) 40 mg PO DAILY [facility] Last Admin: 01/16/23 08:17 Dose: 40 mg Heparin Sodium (Porcine) (Heparin Sodium,Porcine Flush 50 Units/5 Ml Syringe) 50 units IVFLUSH DAILY PRN PRN Reason: occlusion Hydroxyzine HCl (Hydroxyzine Hcl 25 Mg Tablet) 25 mg PO Q6H PRN PRN Reason: Anxiety Last Admin: 01/15/23 10:46 Dose: 25 mg Magnesium Hydroxide (Milk Of Magnesia 30 Ml Oral.Susp) 30 ml PO DAILY PRN PRN Reason: Constipation Nicotine (Nicotine 7 Mg Patch.Td24) 7 mg TRANSDERMA DAILY [facility] Last Admin: 01/16/23 08:16 Dose: 7 mg Nicotine Polacrilex (Nicotine Polacrilex Lozenge 2 Mg Lozenge) 2 mg BUCCAL Q2H PRN PRN Reason: nicotine withdrawal Last Admin: 01/14/23 16:13 Dose: 2 mg Olanzapine (Olanzapine 5 Mg Tablet) 5 mg PO BEDTIME [facility] Last Admin: 01/15/23 22:20 Dose: 5 mg Ondansetron HCl (Ondansetron Hcl 4 Mg/2 Ml Vial) 4 mg IVPUSH ONCE PRN PRN Reason: Nausea and Vomiting Sodium Chloride (0.9 % Sodium Chloride Flush 10 Ml Syringe) 10 ml IVFLUSH Q8H [facility] Last Admin: 01/16/23 08:43 Dose: 10 ml Trazodone HCl (Trazodone Hcl 50 Mg Tablet) 50 mg PO BEDTIME PRN PRN Reason: Insomnia Allergies Allergies Allergy/AdvReac Type Severity Reaction Status Date / Time No Known Allergies Allergy Verified 10/31/22 14:47 Assessment & Plan Assessment & Plan (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 11/04: pt refusing meds and not taking anything PO. nevertheless appears slightly improved from yesterday, more verbal with less latency of response. advised to take meds and fluids. 11/05: ate and drank some last night. refusing meds. no longer grossly catat onic. continue current mgmt. 11/06: no PO intake in past 24H. refusing meds. parnell warning, 3-day up . 6/27: no food, had some water last night. recheck BMP. completed commitment paperwork. refusing meds. 11/08: denies eating or drinking but yesterday's breakfast tray was empty on return. commitment filed. refusing meds. 11/09: continues without PO intake, not attending to ADLs. refusing meds. hearing scheduled for next . labs from yesterday not indicative of concerning dehydration. 11/10 continue tx. more talkative, although guarded. No overt delusional content reported. denies SI/HI. 11/11: will order CMP for tomorrow morning given uncertainty ref PO intake 11/13: increase in BUN and Cr due to dehydration 11/14: continue tx. refuses medications but unable to provide explanation as to why not show understanding in terms of effects of decrease oral intake on renal function. 11/15: unchanged from last week. intermittent meals, BUN mildly elevated. court tomorrow. 11/16: court deferred for BEHZAD. no change in presentation. place on 1:1 for observation of PO intake. lying all day in bed, PMR, with shades drawn, for a darkened room. refusing medications. 11/17: DC olanzapine. offer SSRI. eating and drinking this morning, after having been put on 1:1. continue current mgmt. commitment hearing likely next . 11/18: refusing to look at or speak with MD. clearly ate and drank more yesterday, up and out of room more. nevertheless, spends vast majority of his time lying in bed in the dark. refusing meds. 11/19: ate more yesterday and last night. DC 1:1. appearing catatonic today, no eye blink staring at ceiling not responding. 11/20: moderate PO intake yesterday. appearing more catatonic today. continue to offer meds. 11/21: catatonic. no report on sleep or PO intake as pt is off 1:1. continue to offer meds. 11/22: catatonic. labs reassuring. court tomorrow. 11/23: catatonic. committed and ordered meds in court. 11/24: start ativan 2 mg TID with IM back-up for catatonia. plan to start neuroleptics and anti-depressants once catatonia improved. 11/25: decrease ativan to 1mg tid as he had no response to 2 mg and might be experiencing sedation from it 11/26: More alert on lower ativan dose but remains non-verbal and lying in bed 11/27 increase ativan back to 2mg po TID back up IM. 11/28: T/C gaining IV access to facilitate delivery of ativan; plan to increase to QID dosing. remains catatonic. case d/w nursing administration and medical examinerdirector of industrial relations. 11/29: gain IV access today, start ativan 2 mg IV QID. was out of bed, eating and speaking yesterday evening. 11/30: 1:1 as he removed IV access, apparently. was up in kitchen getting food on evening shift. continue current mgmt. 12/01: up twice in the past 24H, ate some, swore that lights in his room had been turned on. T/C adding valium 2 mg TID IV (per court order, maximum of 8 mg ativan may be given per day) and/or antipsychotic to regimen. case D/W david. 12/02: Check comprehensive metabolic labs in AM. Continue current management. 12/03: Improved post IM dose of Zyprexa last night. Ate better. More communicative. Continue current plan of care. 12/04: some improvement over w/e. increase IM zyprexa t HS to 5 mg each. continue current mgmt. 12/05: continue current mgmt. up several times yesterday, had conversation with reza nurse, observed eating dinner. 12/06: less active yesterday. did not receive IM zyprexa last night. continue current mgmt. 12/07: received zyprexa IM last night. up for breakfast this morning, exchanged some words with MD for first time in weeks. indicated he has a depressed mood. not opposed to anti-depressant. will start prozac liquid daily. 12/08: lying in bed, not responsive. several interactions with staff yesterday, limited and often non-verbal. refused PO prozac. continue current mgmt. 12/09: still catatonic. 12/10 still catatonic 12/11/22 Patient intermittently responsive often refusing p.o. meds may require ECT 12/12/2022 Patient remains mostly electively mute intermittently catatonic with some sy ods of verbal discourse 12/13/22 more verbal hx of recurrent depression still gets iv ativan refuses po meds 12 14 22 Continue Ativan and intravenous is encouraged fluoxetine continue olanzapine 5 mg patient does not appear to be psychotic would encourage ECT 12/15/2022 Continue plan of care labs reviewed sodium creatinine within normal limits 12/16: Continue current regimen and plans. Switch Zyprexa to a.m. use. 12/17: Continue current regimen and plans. Decrease Ativan by 2 mg and increase Zyprexa by 10 mg 12/18: continue current regimen. no change in catatonic presentation. 12/19: return ativan to 2 mg QID and zyprexa to 10 mg QHS only. 12/20: due to possibility of akathisia from zyprexa, will try lower potency anti- psychotic, thorazine. DC zyprexa and start thorazine 100 mg PO QHS with 50 mg I M if refuses PO. 12/21: received thorazine last NOC, IM. ate dinner and spoke with EMERY cobb. generally no improvement, no change in presentation. 12/22: awake briefly this morning, endorsing depression. vague, unable to state preference for Tx. continue current mgmt. hearing scheduled for next sunday re ECT. 12/23 ck labs consider iv fluids get med clearance ect 12/24/2022 Of Thorazine discontinued has not been effective can lower blood pressure and someone already with periods of dehydration strongly would benefit from ECT trial 12/25: continue current mgmt. up briefly today to move rooms. ate 3 meals yesterday, reportedly. hearing tomorrow for ECT. 12/26: staring today, no responses. hearing held today, judgment pending. decrease ativan to 2 mg TID in anticipation of ECT. medical clearance and EKG ordered. 12/26: staring today, no responses. IV access lost, will give IM ativan until IV access regained. awaiting word from court on ECT. 12/27: medically cleared for ECT, court ordered ECT. start ECT tomorrow. case d/w david in detail. taper ativan to 4 mg today, may need flumazenil tomorrow prior to ECT. continue ativan taper over w/e. 12/29: ECT #1 completed, clear improvement in mental status and insight. continue ativan taper. ECT #2 on sunday. 12/30: took PO meds yesterday morning after ECT, refusing since. continue current mgmt. 12/31: continue ativan taper. awake and verbal today. not eating or taking meds PO. ECT #2 tomorrow. 01/01: missed morning ECT due to inability to gain IV access. U/S guided IV inserted, will go for anoon ECT. PMR, inert, lying in bed; awake, however, and able to exchange a few words. 01/02 yesterday he had a he has ECT in the evening. Slight improvement. We added a midline IV access sings we could not get an IV access on the previous ECT easily. ECT tomorrow AM. 01/03: ECT #3 completed this morning. remains more alert and responsive than prior, yet still very poor PO intake and refusing PO meds. continue current mgmt. 01/04: remains alert and interactive. still PMR, poor appetite. ECT scheduled for tomorrow. 01/05: ECT #4 completed, continues more alert and engageable than prior to start of ECT. still not doing ADLs, not eating/drinking adequately. ECT #5 on sunday. 01/06: ECT #5 Sunday. Improved (known to this ad writer from interaction over a month ago.). Continue current treatment plan. 01/07: Continue current management. 01/08: s/p ECT #5. improvements continue. trimmed gallegos, ate 3 meals y , taking PO meds. ECT #6 . 01/09: informed SW that while catatonic had been hearing the voice of god telling him not to eat or he would go to hell. clinical presentation as per yesterday. ECT #6 tomorrow. concerned ECT is erasing [his] mind. 01/10: notably more social and visible in the milieu today. start zyprexa 5 at bedtime and increase prozac from 20 mg daily to 40 mg daily as of tomorrow. ECT #6 completed. 01/11: stably improved presentation. ECT #7 tomorrow. continue current mgmt. 01/12: ECT #7 completed without complication. stable gains. continue current mgmt. 01/13: Continue current regimen and plans 01/14: Continue current plans and regimen 01/15: Continue current regimen and plans 01/16: day by day marginal improvements. more ambulatory and social, now making discharge plans with SW. ECT #8 tomorrow. Reason for continued inpatient stay Substantial Risk for: inability to function and rapid decompensation Time Spent With Patient Time: Total time managing care of this patient today __25__ minutes.
[2023-01-16] MEDS: hydrOXYzine HCL 25 MG TABLET PO (18:34)
--- NOTE | 2023-01-16 18:36 | PC.NURSE ---
Patient was scheduled to have mid-line changed when T/W was informed by the ifusion team and manager of organizational development Michelle Cueto that it was only required every 4 weeks. Dressing was changed by Ehsan Wing RN without difficulty
[2023-01-16 19:40] VITALS: BP 129/83; PULSE 109; RESP 18; TEMP 36.9; O2SAT 97
[2023-01-16] MEDS: traZODone HCL 50 MG TABLET PO (20:46)
[2023-01-16] MEDS: OLANZapine 5 MG TABLET PO (20:46)
--- NOTE | 2023-01-16 22:52 | PC.ADMIT ---
Delaney is admitted form [facility] for Schizoaffective d/o. He signed a conditional voluntary hospitalization and signed a 3 day notice a hospitalist consultation has been generated on 01/16/23 at 2300. he is irritable with flight of ideas, delusions and grandiosity. he is oriented but confirms auditory and visual hallucinations. he states that he is in a poly-amorous relationship with multiple people one of which he describes as his daughter/ and states that he is having trouble with her because she is thinks she knows better then anyone. he states that doesn't take any medication however he is prescribed medications and per the crisis report he has been taking them. the states that his family is here with him during the admission he states that he can hear them and see them. he questioned this RN stating I supposed that me telling you that is gonna make me stay here longer. He stated multiple times that he wants to be section 35'd for nicotine. I smoke 40 cigarettes a day and want to be 35'd to help me quit smoking. patient was yelling about ECT and how it's barbaric and that [he] can't believe that we do that here. that is cruel and should never be done. you put people to sleep with a chemical so that they wont know how you much you are frying their brains hospitalist consult called in. patient is a known diabetic. his admission blood sugar was 261. all admission documents completed, treatment plan initiated
[2023-01-17] VITALS (11 sets, daily range): BP systolic 118–137; BP diastolic 73–97; PULSE 73–118; RESP 15–18; TEMP 36.1–36.9; O2SAT 96–100; BMI 23.7
[2023-01-17] MEDS: 0.9 % Sodium Chloride Flush 10 ML SYRINGE IVFLUSH (08:29)
[2023-01-17] MEDS: Nicotine 7 MG PATCH.TD24 TRANSDERMA (10:14)
[2023-01-17] MEDS: FLUoxetine HCl 20 MG CAPSULE 40 MG PO (10:15)
--- NOTE | 2023-01-17 13:05 | P.CONAN_ITS ---
HPI - Anesthesia Eval Consult details Narrative: [facility] Active Problems Active Problems: All Active Problems (Updated 11/11/22 @ 00:11 by Background Andrew) Catatonia (Acute) Cocaine use disorder, mild, in early remission (Acute) Mood disorder (Acute) Cocaine use disorder (Acute) Depression (Acute) Anorexia (Acute) Past Medical History Medical History Cocaine use disorder Family History Family history of problems with anesthesia: No Surgical History History of Problems with Anesthesia: No Social History Social History Household Members: None Housing: Other Housing Other:: TSS Unable to assess alcohol history related to: Refusing to respond Patient Tobacco Use Status: Never used Tobacco Second Hand Smoke Exposure: No Use of substances other than those prescribed or required for medical reasons: No Currently Displaying Signs/Symptoms of Drug Intoxication Withdrawal: No Have you been hit, kicked, punched, or otherwise hurt by someone within the past year? If so, by whom?: No Do you feel safe in your current relationship?: No Current Relationship Is there a partner from a previous relationship who is making you feel unsafe now?: No Are you made to feel afraid or neglected: No Are you DNR?: No Advance Directives: No Advance Directives Information Provided: Yes Advance Directives on File: No Do you have thoughts of harming others: None Do you have a plan to hurt others: No Plan Recently lost weight without trying: No Nutrition Risks: No Nutritional Risk Poor oral hygiene: No service: No Sexual orientation: Decline to Answer Meds Allergies Allergy/AdvReac Type Severity Reaction Status Date / Time No Known Allergies Allergy Verified 10/31/22 14:47 Active Medications: Current Medications Acetaminophen (Acetaminophen 325 Mg Tablet) 650 mg PO Q6H PRN PRN Reason: Headache/Pain Mild Scale (1-3) Last Admin: 01/05/23 19:46 Dose: 650 mg Acetaminophen (Acetaminophen 325 Mg Tablet) 650 mg PO ONCE PRN PRN Reason: Pain, Mild (Pain Scale 1-3) Al Hydroxide/Mg Hydroxide (Magnesium Hydrox/Alum Hydrox 30 Ml Oral.Susp) 30 ml PO Q6H PRN PRN Reason: Heartburn/Nausea Artificial Tears (Artificial Tears 15 Ml Drops) 2 drop EYE-BOTH Q4H PRN PRN Reason: Dry Eyes Last Admin: 12/02/22 14:19 Dose: 2 drop Benzocaine (Throat Lozenge, Medicated Lozenge) 1 lozenge MUCOUS MEM Q2H PRN PRN Reason: Sore Throat Last Admin: 12/29/22 12:23 Dose: 1 lozenge Fluoxetine HCl (Fluoxetine Hcl 20 Mg Capsule) 40 mg PO DAILY [facility] Last Admin: 01/17/23 10:15 Dose: 40 mg Heparin Sodium (Porcine) (Heparin Sodium,Porcine Flush 50 Units/5 Ml Syringe) 50 units IVFLUSH DAILY PRN PRN Reason: occlusion Hydroxyzine HCl (Hydroxyzine Hcl 25 Mg Tablet) 25 mg PO Q6H PRN PRN Reason: Anxiety Last Admin: 01/16/23 18:34 Dose: 25 mg Magnesium Hydroxide (Milk Of Magnesia 30 Ml Oral.Susp) 30 ml PO DAILY PRN PRN Reason: Constipation Nicotine (Nicotine 7 Mg Patch.Td24) 7 mg TRANSDERMA DAILY [facility] Last Admin: 01/17/23 10:14 Dose: 7 mg Nicotine Polacrilex (Nicotine Polacrilex Lozenge 2 Mg Lozenge) 2 mg BUCCAL Q2H PRN PRN Reason: nicotine withdrawal Last Admin: 01/14/23 16:13 Dose: 2 mg Olanzapine (Olanzapine 5 Mg Tablet) 5 mg PO BEDTIME [facility] Last Admin: 01/16/23 20:46 Dose: 5 mg Ondansetron HCl (Ondansetron Hcl 4 Mg/2 Ml Vial) 4 mg IVPUSH ONCE PRN PRN Reason: Nausea and Vomiting Sodium Chloride (0.9 % Sodium Chloride Flush 10 Ml Syringe) 10 ml IVFLUSH Q8H [facility] Last Admin: 01/17/23 08:29 Dose: 10 ml Trazodone HCl (Trazodone Hcl 50 Mg Tablet) 50 mg PO BEDTIME PRN PRN Reason: Insomnia Last Admin: 01/16/23 20:46 Dose: 50 mg Home Medications Medication Instructions Recorded Confirmed Last Taken Type No Known Home Meds 10/31/22 11/04/22 Unknown History Exam Exam Date and Time: January 17, 2023 1305 Height,Weight and Vital Signs: Height 6 ft Weight 79.379 kg Last Vital Signs Temp 98.2 F 01/17/23 12:37 Pulse 77 01/17/23 12:37 Resp 18 01/17/23 12:37 BP 119/77 01/17/23 12:37 Pulse Ox 98 01/17/23 12:37 O2 Del Method Room Air 01/17/23 12:37 O2 Flow Rate 3 01/12/23 08:40 Pertinent Lab Results Pertinent Lab Results: Laboratory Tests 11/03/22 11/05/22 11/08/22 15:48 12:58 15:07 Sodium 142 140 Potassium 4.1 D 4.1 Chloride 108 105 Carbon Dioxide 26 28 Anion Gap 12 11 L BUN 23 H 15 Creatinine 0.73 0.83 0.72 Estim Creat Clear Calc TNP TNP TNP Estimated GFR > 60 > 60 > 60 Random Glucose 97 95 Calcium 9.1 9.7 D Total Bilirubin AST ALT Alkaline Phosphatase Total Protein Albumin 11/13/22 11/16/22 11/22/22 08:00 08:11 11:55 Sodium 140 138 137 Potassium 4.8 4.9 4.5 Chloride 103 106 106 Carbon Dioxide 22 22 25 Anion Gap 20 15 11 L BUN 25 H 16 16 Creatinine 1.07 0.97 0.86 Estim Creat Clear Calc TNP TNP TNP Estimated GFR > 60 > 60 > 60 Random Glucose 73 89 93 Calcium 10.0 9.6 9.9 Total Bilirubin 0.9 0.9 AST 21 22 ALT 16 15 Alkaline Phosphatase 62 59 Total Protein 7.1 6.8 Albumin 4.0 3.6 12/03/22 12/15/22 12/23/22 07:45 09:53 17:51 Sodium 139 139 139 Potassium 4.8 4.3 4.2 Chloride 107 106 104 Carbon Dioxide 24 23 23 Anion Gap 13 14 16 BUN 13 11 11 Creatinine 0.73 0.74 0.77 Estim Creat Clear Calc TNP TNP TNP Estimated GFR > 60 > 60 > 60 Random Glucose 103 86 79 Calcium 9.3 D 9.3 9.8 Total Bilirubin 0.5 0.7 0.8 AST 25 18 24 ALT 20 16 16 Alkaline Phosphatase 47 55 68 Total Protein 6.4 L 6.5 7.1 Albumin 3.5 3.6 4.0 Airway Mallampati Class: II TM Dist: >3cm Neck ROM: Full Heart: rrr Lungs: cta Assessment and Plan Assessment Anesthesia Assessment: Anesthesia Plan Discussed and Chart Reviewed Final Anesthetic Review Family History of Problems with Anesthesia: No History of Problems with Anesthesia: No NPO: Yes ASA Class: III Final Preanesthetic Review: No Changes in Pt Med Stat, Meds/Allgs Chart Reviewed, Consent Obtained/Reviewed and Anes Risks/Benef Reviewed Patient Risk: Low Procedure Risk: Low Anesthetic Plan Anesthetic Plan: GA Disposition: Standard PACU
--- NOTE | 2023-01-17 13:06 | MHC.SHP ---
Pre-Procedural Eval Section A Date of Service: 01/17/23 The patient is an INPATIENT: Yes Changes since office visit: No Cold of Flu in the past 2 weeks, No New Medical Problems, No Changes in Medication and No Patient answered all questions The History & Physical has been completed within 30 days and I have reviewed it.: Yes Section B Chief Complaint: catatonia Allergies: Allergies Allergy/AdvReac Type Severity Reaction Status Date / Time No Known Allergies Allergy Verified 10/31/22 14:47 Plan I have reviewed the history and physical and performed a pertinent physical examination on my patient. No changes have occurred unless specified. Time Spent With Patient Time: Total time managing care of this patient today ____ minutes.
--- NOTE | 2023-01-17 13:22 | HO.ECTPROC ---
ECT Procedure Note Diagnosis/Treatment Date of Service: 01/17/23 Diagnosis: Catatonia Previous ECT Date: 01/12/23 Current Treatment Number: 8 Treatment: Series Interval Clinical Notes: The patient is awake, alert, with a bright and full affect. Denies major side effects with previous ECT. He has a midline access but he was not sedated with the first dose of Etomidate 16 mg and a new IV access was done at bedside. The patient had a new IV access and he was sedated easily. Right unilateral 0.5 at 100% with a good seizure 44s. Woke up without any problems. Time: Total time managing care of this patient today __45__ minutes. ECT Settings Device: THYMATRON DGx Electrode Placement: Right Unilateral Program/Pulse Width: 0.50 Energy Percent: 100 Seizure Duration By EEG (in seconds): 44 By Motor Observation (in seconds): 0 Medications Administration General Anesthetic: Etomidate (16 mg to midline access, later another 16 mg with good sedation) Muscle Relaxant: Succinylcholine (100 mg) Ancillary Medications Analgesics: Torodol - Pre ECT Anti-emetics: Zofran - Pre ECT Cardiovascular Medications: Glycopyrrolate (0.2) Airway Management Airway Management: Bag Mask Ventilation Treatment Recommendations No Changes Recommended: No change Pt Tolerated Procedure w/o Issue: Yes
--- NOTE | 2023-01-17 13:56 | HO.PSYCHPN ---
Subjective Subjective Date of Service: 01/17/23 Reason For Visit: catatonia Interim History: continues more active, less stiff, more fluid social interactions. some irritation at having been dropped from ECT schedule this morning, informed he has been added for later in the day. reports a little bit of anxiety. per staff, depression 3, anxiety 5. attended skills group. playing table games later. showered. Mental Status Exam Mental Status Exam Narrative: improving self-care. up and about the unit, engaging in more programming and social activities. cooperative. speech soft, nml amount, flattened prosody. thoughts linear and logical. affect constricted and hypo-intense. mood a little bit of anxiety. no SI/HI/AVH expressed. Insight and judgment improved. Diagnostics Vital Signs (24Hr): Vital Signs - 24 hr 01/16/23 19:40 01/17/23 05:39 01/17/23 08:30 Temperature 98.4 F 97.2 F 97.9 F Pulse Rate 109 H 84 76 Respiratory Rate 18 18 16 Blood Pressure 129/83 118/73 132/80 Pulse Oximetry 97 96 96 Oxygen Delivery Method Room Air Room Air Room Air Oxygen Flow Rate 01/17/23 11:45 01/17/23 12:37 01/17/23 13:55 Temperature 97.5 F 98.2 F 97.6 F Pulse Rate 73 77 77 Respiratory Rate 16 18 17 Blood Pressure 122/79 119/77 137/86 Pulse Oximetry 98 98 98 Oxygen Delivery Method Room Air Nasal Cannula with ETCO2 Oxygen Flow Rate 2 BMI result Body Mass Index 23.7 Labs 12/23/22 17:51 Medications Medications Current Medications Acetaminophen (Acetaminophen 325 Mg Tablet) 650 mg PO Q6H PRN PRN Reason: Headache/Pain Mild Scale (1-3) Last Admin: 01/05/23 19:46 Dose: 650 mg Acetaminophen (Acetaminophen 325 Mg Tablet) 650 mg PO ONCE PRN PRN Reason: Pain, Mild (Pain Scale 1-3) Al Hydroxide/Mg Hydroxide (Magnesium Hydrox/Alum Hydrox 30 Ml Oral.Susp) 30 ml PO Q6H PRN PRN Reason: Heartburn/Nausea Artificial Tears (Artificial Tears 15 Ml Drops) 2 drop EYE-BOTH Q4H PRN PRN Reason: Dry Eyes Last Admin: 12/02/22 14:19 Dose: 2 drop Benzocaine (Throat Lozenge, Medicated Lozenge) 1 lozenge MUCOUS MEM Q2H PRN PRN Reason: Sore Throat Last Admin: 12/29/22 12:23 Dose: 1 lozenge Fluoxetine HCl (Fluoxetine Hcl 20 Mg Capsule) 40 mg PO DAILY [facility] Last Admin: 01/17/23 10:15 Dose: 40 mg Heparin Sodium (Porcine) (Heparin Sodium,Porcine Flush 50 Units/5 Ml Syringe) 50 units IVFLUSH DAILY PRN PRN Reason: occlusion Hydroxyzine HCl (Hydroxyzine Hcl 25 Mg Tablet) 25 mg PO Q6H PRN PRN Reason: Anxiety Last Admin: 01/16/23 18:34 Dose: 25 mg Magnesium Hydroxide (Milk Of Magnesia 30 Ml Oral.Susp) 30 ml PO DAILY PRN PRN Reason: Constipation Nicotine (Nicotine 7 Mg Patch.Td24) 7 mg TRANSDERMA DAILY [facility] Last Admin: 01/17/23 10:14 Dose: 7 mg Nicotine Polacrilex (Nicotine Polacrilex Lozenge 2 Mg Lozenge) 2 mg BUCCAL Q2H PRN PRN Reason: nicotine withdrawal Last Admin: 01/14/23 16:13 Dose: 2 mg Olanzapine (Olanzapine 5 Mg Tablet) 5 mg PO BEDTIME [facility] Last Admin: 01/16/23 20:46 Dose: 5 mg Ondansetron HCl (Ondansetron Hcl 4 Mg/2 Ml Vial) 4 mg IVPUSH ONCE PRN PRN Reason: Nausea and Vomiting Sodium Chloride (0.9 % Sodium Chloride Flush 10 Ml Syringe) 10 ml IVFLUSH Q8H [facility] Last Admin: 01/17/23 08:29 Dose: 10 ml Trazodone HCl (Trazodone Hcl 50 Mg Tablet) 50 mg PO BEDTIME PRN PRN Reason: Insomnia Last Admin: 01/16/23 20:46 Dose: 50 mg Allergies Allergies Allergy/AdvReac Type Severity Reaction Status Date / Time No Known Allergies Allergy Verified 10/31/22 14:47 Assessment & Plan Assessment & Plan (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 11/04: pt refusing meds and not taking anything PO. nevertheless appears slightly improved from yesterday, more verbal with less latency of response. advised to take meds and fluids. 11/05: ate and drank some last night. refusing meds. no longer grossly catatonic. continue current mgmt. 11/06: no PO intake in past 24H. refusing meds. parnell warning, 3-day up . 11/07: no food, had some water last night. recheck BMP. completed commitment paperwork. refusing meds. 11/08: denies eating or drinking but yesterday's breakfast tray was empty on return. commitment filed. refusing meds. 11/09: continues without PO intake, not attending to ADLs. refusing meds. hearing scheduled for next . labs from yesterday not indicative of concerning dehydration. 11/10 continue tx. more talkative, although guarded. No overt delusional content reported. denies SI/HI. 11/11: will order CMP for tomorrow morning given uncertainty ref PO intake 11/13: increase in BUN and Cr due to dehydration 11/14: continue tx. refuses medications but unable to provide explanation as to why not show understanding in terms of effects of decrease oral intake on renal function. 11/15: unchanged from last week. intermittent meals, BUN mildly elevated. court tomorrow. 11/16: court deferred for BEHZAD. no change in presentation. place on 1:1 for observation of PO intake. lying all day in bed, PMR, with shades drawn, for a darkened room. refusing medications. 11/17: DC olanzapine. offer SSRI. eating and drinking this morning, after having been put on 1:1. continue current mgmt. commitment hearing likely next . 11/18: refusing to look at or speak with MD. clearly ate and drank more yesterday, up and out of room more. nevertheless, spends vast majority of his time lying in bed in the dark. refusing meds. 11/19: ate more yesterday and last night. DC 1:1. appearing catatonic today, no eye blink staring at ceiling not responding. 11/20: moderate PO intake yesterday. appearing more catatonic today. continue to offer meds. 11/21: catatonic. no report on sleep or PO intake as pt is off 1:1. continue to offer meds. 11/22: catatonic. labs reassuring. court tomorrow. 11/23: catatonic. committed and ordered meds in court. 11/24: start ativan 2 mg TID with IM back-up for catatonia. plan to start neuroleptics and anti-depressants once catatonia improved. 11/25: decrease ativan to 1mg tid as he had no response to 2 mg and might be experiencing sedation from it 11/26: More alert on lower ativan dose but remains non-verbal and lying in bed 11/27 increase ativan back to 2mg po TID back up IM. 11/28: T/C gaining IV access to facilitate delivery of ativan; plan to increase to QID dosing. remains catatonic. case d/w nursing administration and medical specialistdirector of elementary education. 11/29: gain IV access today, start ativan 2 mg IV QID. was out of bed, eating and speaking yesterday evening. 11/30: 1:1 as he removed IV access, apparently. was up in kitchen getting food on evening shift. continue current mgmt. 12/01: up twice in the past 24H, ate some, swore that lights in his room had been turned on. T/C adding valium 2 mg TID IV (per court order, maximum of 8 mg ativan may be given per day) and/or antipsychotic to regimen. case D/W david. 12/02: Check comprehensive metabolic labs in AM. Continue current management. 12/03: Improved post IM dose of Zyprexa last night. Ate better. More communicative. Continue current plan of care. 12/04: some improvement over w/e. increase IM zyprexa t HS to 5 mg each. continue current mgmt. 12/05: continue current mgmt. up several times yesterday, had conversation with reza hilton, observed eating dinner. 12/06: less active yesterday. did not receive IM zyprexa last night. continue current mgmt. 12/07: received zyprexa IM last night. up for breakfast this morning, exchanged some words with MD for first time in weeks. indicated he has a depressed mood. not opposed to anti-depressant. will start prozac liquid daily. 12/08: lying in bed, not responsive. several interactions with staff yesterday, limited and often non-verbal. refused PO prozac. continue current mgmt. 12/09: still catatonic. 12/10 still catatonic 12/11/22 Patient intermittently responsive often refusing p.o. meds may require ECT 12/12/2022 Patient remains mostly electively mute intermittently catatonic with some periods of verbal discourse 12/13/22 more verbal hx of recurrent depression still gets iv ativan refuses po meds 12 14 22 Continue Ativan and intravenous is encouraged fluoxetine continue olanzapine 5 mg patient does not appear to be psychotic would encourage ECT 12/15/2022 Continue plan of care labs reviewed sodium creatinine within normal limits 12/16: Continue current regimen and plans. Switch Zyprexa to a.m. use. 12/17: Continue current regimen and plans. Decrease Ativan by 2 mg and increase Zyprexa by 10 mg 12/18: continue current regimen. no change in catatonic presentation. 12/19: return ativan to 2 mg QID and zyprexa to 10 mg QHS only. 12/20: due to possibility of akathisia from zyprexa, will try lower potency anti-psychotic, thorazine. DC zyprexa and start thorazine 100 mg PO QHS with 50 mg IM if refuses PO. 12/21: received thorazine last NOC, IM. ate dinner and spoke with EMERY cobb. generally no improvement, no change in presentation. 12/22: awake briefly this morning, endorsing depression. vague, unable to state preference for Tx. continue current mgmt. hearing scheduled for next sunday re ECT. 12/23 ck labs consider iv fluids get med clearance ect 12/24/2022 Of Thorazine discontinued has not been effective can lower blood pressure and someone already with periods of dehydration strongly would benefit from ECT trial 12/25: continue current mgmt. up briefly today to move rooms. ate 3 meals yesterday, reportedly. hearing tomorrow for ECT. 12/26: staring today, no responses. hearing held today, judgment pending. decrease ativan to 2 mg TID in anticipation of ECT. medical clearance and EKG ordered. 12/26: staring today, no responses. IV access lost, will give IM ativan until IV access regained. awaiting word from court on ECT. 12/27: medically cleared for ECT, court ordered ECT. start ECT tomorrow. case d/w david in detail. taper ativan to 4 mg today, may need flumazenil tomorrow prior to ECT. continue ativan taper over w/e. 12/29: ECT #1 completed, clear improvement in mental status and insight. continue ativan taper. ECT #2 on sunday. 12/30: took PO meds yesterday morning after ECT, refusing since. continue current mgmt. 12/31: continue ativan taper. awake and verbal today. not eating or taking meds PO. ECT #2 tomorrow. 01/01: missed morning ECT due to inability to gain IV access. U/S guided IV inserted, will go for anoon ECT. PMR, inert, lying in bed; awake, however, and able to exchange a few words. 01/02 yesterday he had a he has ECT in the evening. Slight improvement. We added a midline IV access sings we could not get an IV access on the previous ECT easily. ECT tomorrow AM. 01/03: ECT #3 completed this morning. remains more alert and responsive than prior, yet still very poor PO intake and refusing PO meds. continue current mgmt. 01/04: remains alert and interactive. still PMR, poor appetite. ECT scheduled for tomorrow. 01/05: ECT #4 completed, continues more alert and engageable than prior to start of ECT. still not doing ADLs, not eating/drinking adequately. ECT #5 on sunday. 01/06: ECT #5 Sunday. Improved (known to this teletypewriter operator from interaction over a month ago.). Continue current treatment plan. 01/07: Continue current management. 01/08: s/p ECT #5. improvements continue. trimmed gallegos, ate 3 meals yesterday, taking PO meds. ECT #6 . 01/09: informed SW that while catatonic had been hearing the voice of god telling him not to eat or he would go to hell. clinical presentation as per yesterday. ECT #6 tomorrow. concerned ECT is erasing [his] mind. 01/10: notably more social and visible in the milieu today. start zyprexa 5 at bedtime and increase prozac from 20 mg daily to 40 mg daily as of tomorrow. ECT #6 completed. 01/11: stably improved presentation. ECT #7 tomorrow. continue current mgmt. 01/12: ECT #7 completed without complication. stable gains. continue current mgmt. 01/13: Continue current regimen and plans 01/14: Continue current plans and regimen 01/15: Continue current regimen and plans 01/16: day by day marginal improvements. more ambulatory and social, now making discharge plans with . ECT #8 tomorrow. 01/17: for ECT #8 today. daily recovery continues. Reason for continued inpatient stay Substantial Risk for: rapid decompensation Time Spent With Patient Time: Total time managing care of this patient today __25__ minutes.
--- NOTE | 2023-01-17 15:16 | PC.NURSE ---
Patient Alert and Ox4, upon return from ECT. Per Pacu nurse, right midline had problem flushing and He will need another Midline placement. Midline was removed by PACU nurse without issues. Dr Camilo aware of issues with Midline. Order for new midline received and acknowledge by this song writer. Per Radiology, Midline to be placed 01/18/23 at 0900. No other issues noted. Patient is stable with no complaints voiced.
[2023-01-17] MEDS: OLANZapine 5 MG TABLET PO (20:17)
[2023-01-17] MEDS: Acetaminophen 325 MG TABLET 650 MG PO (20:17)
[2023-01-18] MEDS: Acetaminophen 325 MG TABLET 650 MG PO ×3 (01:56→17:50)
[2023-01-18 07:00] VITALS: BMI 24.7
[2023-01-18 08:00] VITALS: BP 127/70; PULSE 83; RESP 16; TEMP 36.4; O2SAT 95
[2023-01-18] MEDS: FLUoxetine HCl 20 MG CAPSULE 40 MG PO (08:20)
[2023-01-18] MEDS: Nicotine 7 MG PATCH.TD24 TRANSDERMA (08:21)
--- NOTE | 2023-01-18 10:28 | HO.MIDLINE_ITS ---
Midline Insertion MIDLINE INSERTION Diagnosis: DEPRESSION Indication: ECT TREATMENT Pertinent Labs: REVIEWED Technique: Using sterile technique including cap and mask, glove and drape, the RIGHT arm was prepped and draped in the usual sterile fashion of full barrier technique with CHG. Using ultrasound guidance, RIGHT BRACHIAL vein access was obtained on second attempt. [id number] NON-PASV MIDLINE was positioned. The procedure was performed in RM. 272. Ultrasound was used to document vein patency and for needle entry. A formal ultrasound picture was recorded. Vascular Special Education Case Manager has released the line for use and it is currently dressed with a StatLock, Tegaderm, and CHG disc. Verification has been performed for blood return and line patency. Arm Circumference: 33cm Equipment: POWERGLIDE ST MIDLINE CATHETER Catheter Type: [id number] NON-PASV MIDLINE Lot #: [id number]
--- NOTE | 2023-01-18 13:44 | P.PNPSI_ITS ---
Subjective Subjective Date of Service: 01/18/23 Reason For Visit: catatonia Interim History: wearing button-down shirt today, up and about the unit. discuss completion of ECT plans, pt indicates he would like to remain in the hospital through the completion of 12 treatments. hoping for his sister to be able to pick him up. per staff, pleasant. denies SI/HI/AVH. anx 5. no depression. Mental Status Exam Mental Status Exam Narrative: improving self-care, dressed in street clothes. up and about the unit, engaging in more programming and social activities. cooperative. speech soft, nml amount, flattened prosody. thoughts linear and logical. affect constricted and hypo-intense. mood a little bit of anxiety. no SI/HI/AVH expressed. Insight and judgment improved. Diagnostics Vital Signs (24Hr): Vital Signs - 24 hr 01/17/23 13:55 01/17/23 14:00 01/17/23 14:05 Temperature 97.6 F Pulse Rate 77 76 77 Respiratory Rate 17 15 15 Blood Pressure 137/86 128/89 129/88 Pulse Oximetry 98 99 100 Oxygen Delivery Method Nasal Cannula with ETCO2 Nasal Cannula with ETCO2 Nasal Cannula with ETCO2 Oxygen Flow Rate 2 2 2 01/17/23 14:10 01/17/23 14:25 01/17/23 14:55 Temperature 97.0 F 97.8 F Pulse Rate 79 86 91 Respiratory Rate 15 16 16 Blood Pressure 127/89 128/84 132/83 Pulse Oximetry 100 98 96 Oxygen Delivery Method Nasal Cannula with ETCO2 Room Air Room Air Oxygen Flow Rate 2 01/17/23 14:55 01/17/23 18:00 01/18/23 08:00 Temperature 97.8 F 98.4 F 97.5 F Pulse Rate 91 118 H 83 Respiratory Rate 16 16 16 Blood Pressure 132/83 135/97 H 127/70 Pulse Oximetry 96 98 95 Oxygen Delivery Method Room Air Room Air Oxygen Flow Rate BMI result Body Mass Index 24.7 Labs 12/23/22 17:51 Medications Medications Current Medications Acetaminophen (Acetaminophen 325 Mg Tablet) 650 mg PO Q6H PRN PRN Reason: Headache/Pain Mild Scale (1-3) Last Admin: 01/18/23 07:47 Dose: 650 mg Al Hydroxide/Mg Hydroxide (Magnesium Hydrox/Alum Hydrox 30 Ml Oral.Susp) 30 ml PO Q6H PRN PRN Reason: Heartburn/Nausea Artificial Tears (Artificial Tears 15 Ml Drops) 2 drop EYE-BOTH Q4H PRN PRN Reason: Dry Eyes Last Admin: 12/02/22 14:19 Dose: 2 drop Benzocaine (Throat Lozenge, Medicated Lozenge) 1 lozenge MUCOUS MEM Q2H PRN PRN Reason: Sore Throat Last Admin: 12/29/22 12:23 Dose: 1 lozenge Fluoxetine HCl (Fluoxetine Hcl 20 Mg Capsule) 40 mg PO DAILY [facility] Last Admin: 01/18/23 08:20 Dose: 40 mg Heparin Sodium (Porcine) (Heparin Sodium,Porcine Flush 50 Units/5 Ml Syringe) 50 units IVFLUSH DAILY PRN PRN Reason: occlusion Hydroxyzine HCl (Hydroxyzine Hcl 25 Mg Tablet) 25 mg PO Q6H PRN PRN Reason: Anxiety Last Admin: 01/16/23 18:34 Dose: 25 mg Magnesium Hydroxide (Milk Of Magnesia 30 Ml Oral.Susp) 30 ml PO DAILY PRN PRN Reason: Constipation Nicotine (Nicotine 7 Mg Patch.Td24) 7 mg TRANSDERMA DAILY [facility] Last Admin: 01/18/23 08:21 Dose: 7 mg Nicotine Polacrilex (Nicotine Polacrilex Lozenge 2 Mg Lozenge) 2 mg BUCCAL Q2H PRN PRN Reason: nicotine withdrawal Last Admin: 01/14/23 16:13 Dose: 2 mg Olanzapine (Olanzapine 5 Mg Tablet) 5 mg PO BEDTIME [facility] Last Admin: 01/17/23 20:17 Dose: 5 mg Ondansetron HCl (Ondansetron Hcl 4 Mg/2 Ml Vial) 4 mg IVPUSH ONCE PRN PRN Reason: Nausea and Vomiting Sodium Chloride (0.9 % Sodium Chloride Flush 10 Ml Syringe) 10 ml IVFLUSH Q8H [facility] Last Admin: 01/18/23 01:45 Dose: Not Given Trazodone HCl (Trazodone Hcl 50 Mg Tablet) 50 mg PO BEDTIME PRN PRN Reason: Insomnia Last Admin: 01/16/23 20:46 Dose: 50 mg Allergies Allergies Allergy/AdvReac Type Severity Reaction Status Date / Time No Known Allergies Allergy Verified 10/31/22 14:47 Assessment & Plan Assessment & Plan (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 11/04: pt refusing meds and not taking anything PO. nevertheless appears slightly improved from yesterday, more verbal with less latency of response. advised to take meds and fluids. 11/05: ate and drank some last night. refusing meds. no longer grossly catatonic. continue current mgmt. 11/06: no PO intake in past 24H. refusing meds. parnell warning, 3-day up . 11/07: no food, had some water last night. recheck BMP. completed commitment paperwork. refusing meds. 11/08: denies eating or drinking but yesterday's breakfast tray was empty on return. commitment filed. refusing meds. 11/09: continues without PO intake, not attending to ADLs. refusing meds. hearing scheduled for next . labs from yesterday not indicative of concerning dehydration. 11/10 continue tx. more talkative, although guarded. No overt delusional content reported. denies SI/HI. 11/11: will order CMP for tomorrow morning given uncertainty ref PO intake 11/13: increase in BUN and Cr due to dehydration 11/14: continue tx. refuses medications but unable to provide explanation as to why not show understanding in terms of effects of decrease oral intake on renal function. 11/15: unchanged from last week. intermittent meals, BUN mildly elevated. court tomorrow. 11/16: court deferred for BEHZAD. no change in presentation. place on 1:1 for observation of PO intake. lying all day in bed, PMR, with shades drawn, for a darkened room. refusing medications. 11/17: DC olanzapine. offer SSRI. eating and drinking this morning, after having been put on 1:1. continue current mgmt. commitment hearing likely next . 11/18: refusing to look at or speak with MD. clearly ate and drank more yesterday, up and out of room more. nevertheless, spends vast majority of his time lying in bed in the dark. refusing meds. 11/19: ate more yesterday and last night. DC 1:1. appearing catatonic today, no eye blink staring at ceiling not responding. 11/20: moderate PO intake yesterday. appearing more catatonic today. continue to offer meds. 11/21: catatonic. no report on sleep or PO intake as pt is off 1:1. continue to offer meds. 11/22: catatonic. labs reassuring. court tomorrow. 11/23: catatonic. committed and ordered meds in court. 11/24: start ativan 2 mg TID with IM back-up for catatonia. plan to start neuroleptics and anti-depressants once catatonia improved. 11/25: decrease ativan to 1mg tid as he had no response to 2 mg and might be experiencing sedation from it 11/26: More alert on lower ativan dose but remains non-verbal and lying in bed 11/27 increase ativan back to 2mg po TID back up IM. 11/28: T/C gaining IV access to facilitate delivery of ativan; plan to increase to QID dosing. remains catatonic. case d/w nursing administration and senior medical transcriptionisthealth director. 11/29: gain IV access today, start ativan 2 mg IV QID. was out of bed, eating and speaking yesterday evening. 11/30: 1:1 as he removed IV access, apparently. was up in kitchen getting food on evening shift. continue current mgmt. 12/01: up twice in the past 24H, ate some, swore that lights in his room had been turned on. T/C adding valium 2 mg TID IV (per court order, maximum of 8 mg ativan may be given per day) and/or antipsychotic to regimen. case D/W david. 12/02: Check comprehensive metabolic labs in AM. Continue current management. 12/03: Improved post IM dose of Zyprexa last night. Ate better. More communicative. Continue current plan of care. 12/04: some improvement over w/e. increase IM zyprexa t HS to 5 mg each. continue current mgmt. 12/05: continue current mgmt. up several times yesterday, had conversation with eves nurse, observed eating dinner. 12/06: less active yesterday. did not receive IM zyprexa last night. continue current mgmt. 12/07: received zyprexa IM last night. up for breakfast this morning, exchanged some words with MD for first time in weeks. indicated he has a depressed mood. not opposed to anti-depressant. will start prozac liquid daily. 12/08: lying in bed, not responsive. several interactions with staff yesterday, limited and often non-verbal. refused PO prozac. continue current mgmt. 12/09: still catatonic. 12/10 still catatonic 12/11/22 Patient intermittently responsive often refusing p.o. meds may require ECT 12/12/2022 Patient remains mostly electively mute intermittently catatonic with some periods of verbal discourse 12/13/22 more verbal hx of recurrent depression still gets iv ativan refuses po meds 12 14 22 Continue Ativan and intravenous is encouraged fluoxetine continue olanzapine 5 mg patient does not appear to be psychotic would encourage ECT 12/15/2022 Continue plan of care labs reviewed sodium creatinine within normal limits 12/16: Continue current regimen and plans. Switch Zyprexa to a.m. use. 12/17: Continue current regimen and plans. Decrease Ativan by 2 mg and increase Zyprexa by 10 mg 12/18: continue current regimen. no change in catatonic presentation. 12/19: return ativan to 2 mg QID and zyprexa to 10 mg QHS only. 12/20: due to possibility of akathisia from zyprexa, will try lower potency anti- psychotic, thorazine. DC zyprexa and start thorazine 100 mg PO QHS with 50 mg IM if refuses PO. 12/21: received thorazine last NOC, IM. ate dinner and spoke with EMERY cobb. generally no improvement, no change in presentation. 12/22: awake briefly this morning, endorsing depression. vague, unable to state preference for Tx. continue current mgmt. hearing scheduled for next sunday re ECT. 12/23 ck labs consider iv fluids get med clearance ect 12/24/2022 Of Thorazine discontinued has not been effective can lower blood pressure and someone already with periods of dehydration strongly would benefit from ECT trial 12/25: continue current mgmt. up briefly today to move rooms. ate 3 meals yesterday, reportedly. hearing tomorrow for ECT. 12/26: staring today, no responses. hearing held today, judgment pending. decrease ativan to 2 mg TID in anticipation of ECT. medical clearance and EKG ordered. 12/26: staring today, no responses. IV access lost, will give IM ativan until IV access regained. awaiting word from court on ECT. 12/27: medically cleared for ECT, court ordered ECT. start ECT tomorrow. case d/w david in detail. taper ativan to 4 mg today, may need flumazenil tomorrow prior to ECT. continue ativan taper over w/e. 12/29: ECT #1 completed, clear improvement in mental status and insight. continue ativan taper. ECT #2 on sunday. 12/30: took PO meds yesterday morning after ECT, refusing since. continue current mgmt. 12/31: continue ativan taper. awake and verbal today. not eating or taking meds PO. ECT #2 tomorrow. 01/01: missed morning ECT due to inability to gain IV access. U/S guided IV inserted, will go for anoon ECT. PMR, inert, lying in bed; awake, however, and able to exchange a few words. 01/02 yesterday he had a he has ECT in the evening. Slight improvement. We added a midline IV access sings we could not get an IV access on the previous ECT easily. ECT tomorrow AM. 01/03: ECT #3 completed this morning. remains more alert and responsive than prior, yet still very poor PO intake and refusing PO meds. continue current mgmt. 01/04: remains alert and interactive. still PMR, poor appetite. ECT scheduled for tomorrow. 01/05: ECT #4 completed, continues more alert and engageable than prior to start of ECT. still not doing ADLs, not eating/drinking adequately. ECT #5 on sunday. 01/06: ECT #5 Sunday. Improved (known to this engineering technical writer from interaction over a month ago.). Continue current treatment plan. 01/07: Continue current management. 01/08: s/p ECT #5. improvements continue. trimmed gallegos, ate 3 meals yesterday, taking PO meds. ECT #6 . 01/09: informed SW that while catatonic had been hearing the voice of god telling him not to eat or he would go to hell. clinical presentation as per yesterday. ECT #6 tomorrow. concerned ECT is erasing [his] mind. 01/10: notably more social and visible in the milieu today. start zyprexa 5 at bedtime and increase prozac from 20 mg daily to 40 mg daily as of tomorrow. ECT #6 completed. 01/11: stably improved presentation. ECT #7 tomorrow. continue current mgmt. 01/12: ECT #7 completed without complication. stable gains. continue current mgmt. 01/13: Continue current regimen and plans 01/14: Continue current plans and regimen 01/15: Continue current regimen and plans 01/16: day by day marginal improvements. more ambulatory and social, now making discharge plans with SW. ECT #8 tomorrow. 01/17: for ECT #8 today. daily recovery continues. 01/18: for ECT #9 tomorrow. improving daily, today wearing street clothes for the first time this hospitalization. Reason for continued inpatient stay Substantial Risk for: inability to function and rapid decompensation Time Spent With Patient Time: Total time managing care of this patient today _25___ minutes.
[2023-01-18] MEDS: 0.9 % Sodium Chloride Flush 10 ML SYRINGE IVFLUSH ×2 (15:45→23:23)
--- NOTE | 2023-01-18 16:15 | PC.NURSE ---
Patient returned from radiology with midline placed in right arm. Midline flushed with some difficulty. R arm needed to be elevated up straight and mild pressure to upper bicep muscle applied while line flushed with N/S. Patient tolerated flush well and no s/s of infection observed. Dressing is clean, dry, and intact.
[2023-01-18] MEDS: hydrOXYzine HCL 25 MG TABLET PO (17:49)
[2023-01-18 17:55] VITALS: BP 140/77; PULSE 97
[2023-01-18 18:00] VITALS: BP 127/78; PULSE 91; RESP 18; TEMP 36.6; O2SAT 97
[2023-01-18] MEDS: OLANZapine 5 MG TABLET PO (21:18)
[2023-01-19] VITALS (8 sets, daily range): BP systolic 114–159; BP diastolic 55–81; PULSE 89–112; RESP 13–18; TEMP 36.3–37.3; O2SAT 92–99
[2023-01-19] MEDS: 0.9 % Sodium Chloride Flush 10 ML SYRINGE IVFLUSH ×2 (07:55→22:59)
[2023-01-19] MEDS: Nicotine 7 MG PATCH.TD24 TRANSDERMA (08:58)
--- NOTE | 2023-01-19 13:08 | HO.ANESPROP2 ---
[facility] Active Problems Active Problems: All Active Problems (Updated 11/11/22 @ 00:11 by Ez Morales) Catatonia (Acute) Cocaine use disorder, mild, in early remission (Acute) Mood disorder (Acute) Cocaine use disorder (Acute) Depression (Acute) Anorexia (Acute) Past Medical History Medical History Cocaine use disorder Family History Family history of problems with anesthesia: No Surgical History History of Problems with Anesthesia: No Social History Social History Household Members: None Housing: Other Housing Other:: TSS Unable to assess alcohol history related to: Refusing to respond Patient Tobacco Use Status: Never used Tobacco Second Hand Smoke Exposure: No Use of substances other than those prescribed or required for medical reasons: No Currently Displaying Signs/Symptoms of Drug Intoxication Withdrawal: No Have you been hit, kicked, punched, or otherwise hurt by someone within the past year? If so, by whom?: No Do you feel safe in your current relationship?: No Current Relationship Is there a partner from a previous relationship who is making you feel unsafe now?: No Are you made to feel afraid or neglected: No Are you DNR?: No Advance Directives: No Advance Directives Information Provided: Yes Advance Directives on File: No Do you have thoughts of harming others: None Do you have a plan to hurt others: No Plan Recently lost weight without trying: No Nutrition Risks: No Nutritional Risk Poor oral hygiene: No service: No Sexual orientation: Decline to Answer Meds Allergies Allergy/AdvReac Type Severity Reaction Status Date / Time No Known Allergies Allergy Verified 10/31/22 14:47 Active Medications: Current Medications Acetaminophen (Acetaminophen 325 Mg Tablet) 650 mg PO Q6H PRN PRN Reason: Headache/Pain Mild Scale (1-3) Last Admin: 01/18/23 17:50 Dose: 650 mg Al Hydroxide/Mg Hydroxide (Magnesium Hydrox/Alum Hydrox 30 Ml Oral.Susp) 30 ml PO Q6H PRN PRN Reason: Heartburn/Nausea Artificial Tears (Artificial Tears 15 Ml Drops) 2 drop EYE-BOTH Q4H PRN PRN Reason: Dry Eyes Last Admin: 12/02/22 14:19 Dose: 2 drop Benzocaine (Throat Lozenge, Medicated Lozenge) 1 lozenge MUCOUS MEM Q2H PRN PRN Reason: Sore Throat Last Admin: 12/29/22 12:23 Dose: 1 lozenge Fluoxetine HCl (Fluoxetine Hcl 20 Mg Capsule) 40 mg PO DAILY [facility] Last Admin: 01/18/23 08:20 Dose: 40 mg Heparin Sodium (Porcine) (Heparin Sodium,Porcine Flush 50 Units/5 Ml Syringe) 50 units IVFLUSH DAILY PRN PRN Reason: occlusion Hydroxyzine HCl (Hydroxyzine Hcl 25 Mg Tablet) 25 mg PO Q6H PRN PRN Reason: Anxiety Last Admin: 01/18/23 17:49 Dose: 25 mg Magnesium Hydroxide (Milk Of Magnesia 30 Ml Oral.Susp) 30 ml PO DAILY PRN PRN Reason: Constipation Nicotine (Nicotine 7 Mg Patch.Td24) 7 mg TRANSDERMA DAILY [facility] Last Admin: 01/19/23 08:58 Dose: 7 mg Nicotine Polacrilex (Nicotine Polacrilex Lozenge 2 Mg Lozenge) 2 mg BUCCAL Q2H PRN PRN Reason: nicotine withdrawal Last Admin: 01/14/23 16:13 Dose: 2 mg Olanzapine (Olanzapine 5 Mg Tablet) 5 mg PO BEDTIME [facility] Last Admin: 01/18/23 21:18 Dose: 5 mg Ondansetron HCl (Ondansetron Hcl 4 Mg/2 Ml Vial) 4 mg IVPUSH ONCE PRN PRN Reason: Nausea and Vomiting Sodium Chloride (0.9 % Sodium Chloride Flush 10 Ml Syringe) 10 ml IVFLUSH Q8H [facility] Last Admin: 01/19/23 07:55 Dose: 10 ml Trazodone HCl (Trazodone Hcl 50 Mg Tablet) 50 mg PO BEDTIME PRN PRN Reason: Insomnia Last Admin: 01/16/23 20:46 Dose: 50 mg Home Medications Medication Instructions Recorded Confirmed Last Taken Type No Known Home Meds 10/31/22 11/04/22 Unknown History Exam Exam Date and Time: January 19, 2023 1308 Height,Weight and Vital Signs: Height 6 ft Weight 82.6 kg Last Vital Signs Temp 97.4 F 01/19/23 13:04 Pulse 89 01/19/23 13:04 Resp 14 01/19/23 13:04 BP 123/81 01/19/23 13:04 Pulse Ox 97 01/19/23 13:04 O2 Del Method Room Air 01/19/23 13:04 O2 Flow Rate 2 01/17/23 14:10 Pertinent Lab Results Pertinent Lab Results: Laboratory Tests 11/03/22 11/05/22 11/08/22 15:48 12:58 15:07 Sodium 142 140 Potassium 4.1 D 4.1 Chloride 108 105 Carbon Dioxide 26 28 Anion Gap 12 11 L BUN 23 H 15 Creatinine 0.73 0.83 0.72 Estim Creat Clear Calc TNP TNP TNP Estimated GFR > 60 > 60 > 60 Random Glucose 97 95 Calcium 9.1 9.7 D Total Bilirubin AST ALT Alkaline Phosphatase Total Protein Albumin 11/13/22 11/16/22 11/22/22 08:00 08:11 11:55 Sodium 140 138 137 Potassium 4.8 4.9 4.5 Chloride 103 106 106 Carbon Dioxide 22 22 25 Anion Gap 20 15 11 L BUN 25 H 16 16 Creatinine 1.07 0.97 0.86 Estim Creat Clear Calc TNP TNP TNP Estimated GFR > 60 > 60 > 60 Random Glucose 73 89 93 Calcium 10.0 9.6 9.9 Total Bilirubin 0.9 0.9 AST 21 22 ALT 16 15 Alkaline Phosphatase 62 59 Total Protein 7.1 6.8 Albumin 4.0 3.6 12/03/22 12/15/22 12/23/22 07:45 09:53 17:51 Sodium 139 139 139 Potassium 4.8 4.3 4.2 Chloride 107 106 104 Carbon Dioxide 24 23 23 Anion Gap 13 14 16 BUN 13 11 11 Creatinine 0.73 0.74 0.77 Estim Creat Clear Calc TNP TNP TNP Estimated GFR > 60 > 60 > 60 Random Glucose 103 86 79 Calcium 9.3 D 9.3 9.8 Total Bilirubin 0.5 0.7 0.8 AST 25 18 24 ALT 20 16 16 Alkaline Phosphatase 47 55 68 Total Protein 6.4 L 6.5 7.1 Albumin 3.5 3.6 4.0 Airway Mallampati Class: II TM Dist: >3cm Neck ROM: Full Heart: rrr Lungs: cta Assessment and Plan Assessment Anesthesia Assessment: Anesthesia Plan Discussed and Chart Reviewed Final Anesthetic Review Family History of Problems with Anesthesia: No History of Problems with Anesthesia: No NPO: Yes ASA Class: III Final Preanesthetic Review: No Changes in Pt Med Stat, Meds/Allgs Chart Reviewed and Consent Obtained/Reviewed Patient Risk: Intermediate Procedure Risk: Intermediate Anesthetic Plan Anesthetic Plan: GA Disposition: Standard PACU
--- NOTE | 2023-01-19 13:47 | MHC.SHP ---
Pre-Procedural Eval Section A Date of Service: 01/19/23 The patient is an INPATIENT: No Changes since office visit: Yes Cold of Flu in the past 2 weeks, Yes New Medical Problems, Yes Changes in Medication and Yes Patient answered all questions The History & Physical has been completed within 30 days and I have reviewed it.: Yes Section B Chief Complaint: catatonia Allergies: Allergies Allergy/AdvReac Type Severity Reaction Status Date / Time No Known Allergies Allergy Verified 10/31/22 14:47 Plan I have reviewed the history and physical and performed a pertinent physical examination on my patient. No changes have occurred unless specified. Time Spent With Patient Time: Total time managing care of this patient today ____ minutes.
--- NOTE | 2023-01-19 14:04 | HO.PSYCHPN ---
Subjective Subjective Date of Service: 01/19/23 Reason For Visit: catatonia Interim History: calm, cooperative, visible and active in milieu. awaiting ECT this morning. denies AH. reports eating and sleeping well. per staff, moderate anx. denies SI/HI. KWON yesterday. Mental Status Exam Mental Status Exam Narrative: improving self-care, dressed in street clothes. up and about the unit, engaging in more programming and social activities. cooperative. speech soft, nml amount, flattened prosody. thoughts linear and logical. affect constricted and hypo-intense. mood OK. denies AH. no SI/HI/VH expressed. Insight and judgment improved. Diagnostics Vital Signs (24Hr): Vital Signs - 24 hr 01/18/23 17:55 01/18/23 18:00 01/19/23 08:30 Temperature 97.8 F 98.2 F Pulse Rate 97 91 112 H Respiratory Rate 18 18 Blood Pressure 140/77 H 127/78 118/73 Pulse Oximetry 97 95 Oxygen Delivery Method Room Air Room Air 01/19/23 13:04 Temperature 97.4 F Pulse Rate 89 Respiratory Rate 14 Blood Pressure 123/81 Pulse Oximetry 97 Oxygen Delivery Method Room Air BMI result Body Mass Index 24.7 Labs 12/23/22 17:51 Medications Medications Current Medications Acetaminophen (Acetaminophen 325 Mg Tablet) 650 mg PO Q6H PRN PRN Reason: Headache/Pain Mild Scale (1-3) Last Admin: 01/18/23 17:50 Dose: 650 mg Al Hydroxide/Mg Hydroxide (Magnesium Hydrox/Alum Hydrox 30 Ml Oral.Susp) 30 ml PO Q6H PRN PRN Reason: Heartburn/Nausea Artificial Tears (Artificial Tears 15 Ml Drops) 2 drop EYE-BOTH Q4H PRN PRN Reason: Dry Eyes Last Admin: 12/02/22 14:19 Dose: 2 drop Benzocaine (Throat Lozenge, Medicated Lozenge) 1 lozenge MUCOUS MEM Q2H PRN PRN Reason: Sore Throat Last Admin: 12/29/22 12:23 Dose: 1 lozenge Fluoxetine HCl (Fluoxetine Hcl 20 Mg Capsule) 40 mg PO DAILY GABRIEL Last Admin: 01/18/23 08:20 Dose: 40 mg Heparin Sodium (Porcine) (Heparin Sodium,Porcine Flush 50 Units/5 Ml Syringe) 50 units IVFLUSH DAILY PRN PRN Reason: occlusion Hydroxyzine HCl (Hydroxyzine Hcl 25 Mg Tablet) 25 mg PO Q6H PRN PRN Reason: Anxiety Last Admin: 01/18/23 17:49 Dose: 25 mg Lactated Ringer's (Lr) 1,000 mls @ 50 mls/hr IVCONT .Q20H [facility] Magnesium Hydroxide (Milk Of Magnesia 30 Ml Oral.Susp) 30 ml PO DAILY PRN PRN Reason: Constipation Nicotine (Nicotine 7 Mg Patch.Td24) 7 mg TRANSDERMA DAILY [facility] Last Admin: 01/19/23 08:58 Dose: 7 mg Nicotine Polacrilex (Nicotine Polacrilex Lozenge 2 Mg Lozenge) 2 mg BUCCAL Q2H PRN PRN Reason: nicotine withdrawal Last Admin: 01/14/23 16:13 Dose: 2 mg Olanzapine (Olanzapine 5 Mg Tablet) 5 mg PO BEDTIME [facility] Last Admin: 01/18/23 21:18 Dose: 5 mg Ondansetron HCl (Ondansetron Hcl 4 Mg/2 Ml Vial) 4 mg IVPUSH ONCE PRN PRN Reason: Nausea and Vomiting Sodium Chloride (0.9 % Sodium Chloride Flush 10 Ml Syringe) 10 ml IVFLUSH Q8H [facility] Last Admin: 01/19/23 07:55 Dose: 10 ml Trazodone HCl (Trazodone Hcl 50 Mg Tablet) 50 mg PO BEDTIME PRN PRN Reason: Insomnia Last Admin: 01/16/23 20:46 Dose: 50 mg Allergies Allergies Allergy/AdvReac Type Severity Reaction Status Date / Time No Known Allergies Allergy Verified 10/31/22 14:47 Assessment & Plan Assessment & Plan (1) Catatonia: Status: Acute Code(s): F06.1 - Catatonic disorder due to known physiological condition (2) Cocaine use disorder: Status: Acute Code(s): F14.10 - Cocaine abuse, uncomplicated (3) Depression: Qualifiers: Depression Type: major depressive disorder Major depression recurrence: unspecified whether recurrent Active/Remission status: currently active Major depression episode severity: severe Psychotic features: with psychotic features Qualified Code(s): F32.3 - Major depressive disorder, single episode, severe with psychotic features Status: Acute Code(s): F32.A - Depression, unspecified Plan 11/03: 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 11/04: pt refusing meds and not taking anything PO. nevertheless appears slightly improved from yesterday, more verbal with less latency of response. advised to take meds and fluids. 11/05: ate and drank some last night. refusing meds. no longer grossly catatonic. continue current mgmt. 11/06: no PO intake in past 24H. refusing meds. parnell warning, 3-day up wed. 11/07: no food, had some water last night. recheck BMP. completed commitment paperwork. refusing meds. 11/08: denies eating or drinking but yesterday's breakfast tray was empty on return. commitment filed. refusing meds. 11/09: continues without PO intake, not attending to ADLs. refusing meds. hearing scheduled for next . labs from yesterday not indicative of concerning dehydration. 11/10 continue tx. more talkative, although guarded. No overt delusional content reported. denies SI/HI. 11/11: will order CMP for tomorrow morning given uncertainty ref PO intake 11/13: increase in BUN and Cr due to dehydration 11/14: continue tx. refuses medications but unable to provide explanation as to why not show understanding in terms of effects of decrease oral intake on renal function. 11/15: unchanged from last week. intermittent meals, BUN mildly elevated. court tomorrow. 11/16: court deferred for BEHZAD. no change in presentation. place on 1:1 for observation of PO intake. lying all day in bed, PMR, with shades drawn, for a darkened room. refusing medications. 11/17: DC olanzapine. offer SSRI. eating and drinking this morning, after having been put on 1:1. continue current mgmt. commitment hearing likely next . 11/18: refusing to look at or speak with MD. clearly ate and drank more yesterday, up and out of room more. nevertheless, spends vast majority of his time lying in bed in the dark. refusing meds. 11/19: ate more yesterday and last night. DC 1:1. appearing catatonic today, no eye blink staring at ceiling not responding. 11/20: moderate PO intake yesterday. appearing more catatonic today. continue to offer meds. 11/21: catatonic. no report on sleep or PO intake as pt is off 1:1. continue to offer meds. 11/22: catatonic. labs reassuring. court tomorrow. 11/23: catatonic. committed and ordered meds in court. 11/24: start ativan 2 mg TID with IM back-up for catatonia. plan to start neuroleptics and anti-depressants once catatonia improved. 11/25: decrease ativan to 1mg tid as he had no response to 2 mg and might be experiencing sedation from it 11/26: More alert on lower ativan dose but remains non-verbal and lying in bed 11/27 increase ativan back to 2mg po TID back up IM. 11/28: T/C gaining IV access to facilitate delivery of ativan; plan to increase to QID dosing. remains catatonic. 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 11/29: gain IV access today, start ativan 2 mg IV QID. was out of bed, eating and speaking yesterday evening. 11/30: 1:1 as he removed IV access, apparently. was up in kitchen getting food on evening shift. continue current mgmt. 12/01: up twice in the past 24H, ate some, swore that lights in his room had been turned on. T/C adding valium 2 mg TID IV (per court order, maximum of 8 mg ativan may be given per day) and/or antipsychotic to regimen. case D/W david. 12/02: Check comprehensive metabolic labs in AM. Continue current management. 12/03: Improved post IM dose of Zyprexa last night. Ate better. More communicative. Continue current plan of care. 12/04: some improvement over w/e. increase IM zyprexa t HS to 5 mg each. continue current mgmt. 12/05: continue current mgmt. up several times yesterday, had conversation with reza hilton, observed eating dinner. 12/06: less active yesterday. did not receive IM zyprexa last night. continue current mgmt. 12/07: received zyprexa IM last night. up for breakfast this morning, exchanged some words with MD for first time in weeks. indicated he has a depressed mood. not opposed to anti-depressant. will start prozac liquid daily. 12/08: lying in bed, not responsive. several interactions with staff yesterday, limited and often non-verbal. refused PO prozac. continue current mgmt. 12/09: still catatonic. 12/10 still catatonic 12/11/22 Patient intermittently responsive often refusing p.o. meds may require ECT 12/12/2022 Patient remains mostly electively mute intermittently catatonic with some periods of verbal discourse 12/13/22 more verbal hx of recurrent depression still gets iv ativan refuses po meds 12 14 22 Continue Ativan and intravenous is encouraged fluoxetine continue olanzapine 5 mg patient does not appear to be psychotic would encourage ECT 12/15/2022 Continue plan of care labs reviewed sodium creatinine within normal limits 12/16: Continue current regimen and plans. Switch Zyprexa to a.m. use. 12/17: Continue current regimen and plans. Decrease Ativan by 2 mg and increase Zyprexa by 10 mg 12/18: continue current regimen. no change in catatonic presentation. 12/19: return ativan to 2 mg QID and zyprexa to 10 mg QHS only. 12/20: due to possibility of akathisia from zyprexa, will try lower potency anti-psychotic, thorazine. DC zyprexa and start thorazine 100 mg PO QHS with 50 mg IM if refuses PO. 12/21: received thorazine last NOC, IM. ate dinner and spoke with EMERY cobb. generally no improvement, no change in presentation. 12/22: awake briefly this morning, endorsing depression. vague, unable to state preference for Tx. continue current mgmt. hearing scheduled for next sunday re ECT. 12/23 ck labs consider iv fluids get med clearance ect 12/24/2022 Of Thorazine discontinued has not been effective can lower blood pressure and someone already with periods of dehydration strongly would benefit from ECT trial 12/25: continue current mgmt. up briefly today to move rooms. ate 3 meals yesterday, reportedly. hearing tomorrow for ECT. 12/26: staring today, no responses. hearing held today, judgment pending. decrease ativan to 2 mg TID in anticipation of ECT. medical clearance and EKG ordered. 12/26: staring today, no responses. IV access lost, will give IM ativan until IV access regained. awaiting word from court on ECT. 12/27: medically cleared for ECT, court ordered ECT. start ECT tomorrow. case d/w david in detail. taper ativan to 4 mg today, may need flumazenil tomorrow prior to ECT. continue ativan taper over w/e. 12/29: ECT #1 completed, clear improvement in mental status and insight. continue ativan taper. ECT #2 on sunday. 12/30: took PO meds yesterday morning after ECT, refusing since. continue current mgmt. 12/31: continue ativan taper. awake and verbal today. not eating or taking meds PO. ECT #2 tomorrow. 01/01: missed morning ECT due to inability to gain IV access. U/S guided IV inserted, will go for anoon ECT. PMR, inert, lying in bed; awake, however, and able to exchange a few words. 01/02 yesterday he had a he has ECT in the evening. Slight improvement. We added a midline IV access sings we could not get an IV access on the previous ECT easily. ECT tomorrow AM. 01/03: ECT #3 completed this morning. remains more alert and responsive than prior, yet still very poor PO intake and refusing PO meds. continue current mgmt. 01/04: remains alert and interactive. still PMR, poor appetite. ECT scheduled for tomorrow. 01/05: ECT #4 completed, continues more alert and engageable than prior to start of ECT. still not doing ADLs, not eating/drinking adequately. ECT #5 on sunday. 01/06: ECT #5 Sunday. 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 Continue current treatment plan. 01/07: Continue current management. 01/08: s/p ECT #5. improvements continue. trimmed gallegos, ate 3 meals yesterday, taking PO meds. ECT #6 . 01/09: informed SW that while catatonic had been hearing the voice of god telling him not to eat or he would go to hell. clinical presentation as per yesterday. ECT #6 tomorrow. concerned ECT is erasing [his] mind. 01/10: notably more social and visible in the milieu today. start zyprexa 5 at bedtime and increase prozac from 20 mg daily to 40 mg daily as of tomorrow. ECT #6 completed. 01/11: stably improved presentation. ECT #7 tomorrow. continue current mgmt. 01/12: ECT #7 completed without complication. stable gains. continue current mgmt. 01/13: Continue current regimen and plans 01/14: Continue current plans and regimen 01/15: Continue current regimen and plans 01/16: day by day marginal improvements. more ambulatory and social, now making discharge plans with . ECT #8 tomorrow. 01/17: for ECT #8 today. daily recovery continues. 01/18: for ECT #9 tomorrow. improving daily, today wearing street clothes for the first time this hospitalization. 01/19: ECT #9 today. planning to complete series of 12 as of next sunday, discharge to [facility] shortly thereafter. Reason for continued inpatient stay Substantial Risk for: inability to function and rapid decompensation Time Spent With Patient Time: Total time managing care of this patient today ____ minutes.
--- NOTE | 2023-01-19 14:04 | HO.ECTPROC ---
ECT Procedure Note Diagnosis/Treatment Date of Service: 01/19/23 Diagnosis: Catatonia Previous ECT Date: 01/17/23 Current Treatment Number: 9 Interval Clinical Notes: The patient has showed full range of affect, no side effects with previous ECT. Reports feeling much better. Time: Total time managing care of this patient today __30__ minutes. ECT Settings Device: THYMATRON DGx Electrode Placement: Right Unilateral Program/Pulse Width: 0.50 Energy Percent: 100 Medications Administration General Anesthetic: Etomidate (16) Muscle Relaxant: Succinylcholine (100) Ancillary Medications Analgesics: Torodol - Pre ECT Anti-emetics: Zofran - Pre ECT Airway Management Airway Management: Bag Mask Ventilation Treatment Recommendations No Changes Recommended: No change Pt Tolerated Procedure w/o Issue: Yes
[2023-01-19] MEDS: FLUoxetine HCl 20 MG CAPSULE 40 MG PO (15:18)
[2023-01-19] MEDS: OLANZapine 5 MG TABLET PO (20:49)
[2023-01-20] MEDS: 0.9 % Sodium Chloride Flush 10 ML SYRINGE IVFLUSH ×3 (06:57→22:58)
[2023-01-20] MEDS: Nicotine 7 MG PATCH.TD24 TRANSDERMA (08:04)
[2023-01-20] MEDS: FLUoxetine HCl 20 MG CAPSULE 40 MG PO (08:05)
[2023-01-20 08:07] VITALS: BP 132/70; PULSE 100; RESP 18; TEMP 36.7; O2SAT 97
--- NOTE | 2023-01-20 15:31 | HO.PSYCHPN ---
Subjective Subjective Date of Service: 01/20/23 Reason For Visit: catatonia Subjective Notes: [place] Order and Section 8 Interim History: met with patient. Discussed with Nursing. Has significantly improved with ECT. Now attending groups. With physician underwriter reports that ECT has been helpful. no hallucinations, decreased depression, socializing more. Denied any side effects from ECT. Sleep okay. Medication Compliance: Yes Side effects from medications: No Attending Groups: Yes Review of Systems Acute medical concerns: No Review of Systems Review of Systems Unremarkable Mental Status Exam Mental Status Exam Narrative: pleasant. Engaged. Casually dressed. Fair self-care. Engaging socially. Unremarkable speech. Affect is restricted. Reports feeling less depressed. No SI. No HI. No psychosis. Insight and judgment fair Diagnostics Vital Signs (24Hr): Vital Signs - 24 hr 01/19/23 19:45 01/20/23 08:07 Temperature 98.2 F 98.1 F Pulse Rate 109 H 100 Respiratory Rate 16 18 Blood Pressure 159/55 H 132/70 Pulse Oximetry 99 97 Oxygen Delivery Method Room Air Room Air BMI result Body Mass Index 24.7 Labs 12/23/22 17:51 Medications Medications Current Medications Acetaminophen (Acetaminophen 325 Mg Tablet) 650 mg PO Q6H PRN PRN Reason: Headache/Pain Mild Scale (1-3) Last Admin: 01/18/23 17:50 Dose: 650 mg Al Hydroxide/Mg Hydroxide (Magnesium Hydrox/Alum Hydrox 30 Ml Oral.Susp) 30 ml PO Q6H PRN PRN Reason: Heartburn/Nausea Artificial Tears (Artificial Tears 15 Ml Drops) 2 drop EYE-BOTH Q4H PRN PRN Reason: Dry Eyes Last Admin: 12/02/22 14:19 Dose: 2 drop Benzocaine (Throat Lozenge, Medicated Lozenge) 1 lozenge MUCOUS MEM Q2H PRN PRN Reason: Sore Throat Last Admin: 12/29/22 12:23 Dose: 1 lozenge Fluoxetine HCl (Fluoxetine Hcl 20 Mg Capsule) 40 mg PO DAILY GABRIEL Last Admin: 01/20/23 08:05 Dose: 40 mg Heparin Sodium (Porcine) (Heparin Sodium,Porcine Flush 50 Units/5 Ml Syringe) 50 units IVFLUSH DAILY PRN PRN Reason: occlusion Hydroxyzine HCl (Hydroxyzine Hcl 25 Mg Tablet) 25 mg PO Q6H PRN PRN Reason: Anxiety Last Admin: 01/18/23 17:49 Dose: 25 mg Magnesium Hydroxide (Milk Of Magnesia 30 Ml Oral.Susp) 30 ml PO DAILY PRN PRN Reason: Constipation Nicotine (Nicotine 7 Mg Patch.Td24) 7 mg TRANSDERMA DAILY [facility] Last Admin: 01/20/23 08:04 Dose: 7 mg Nicotine Polacrilex (Nicotine Polacrilex Lozenge 2 Mg Lozenge) 2 mg BUCCAL Q2H PRN PRN Reason: nicotine withdrawal Last Admin: 01/14/23 16:13 Dose: 2 mg Olanzapine (Olanzapine 5 Mg Tablet) 5 mg PO BEDTIME [facility] Last Admin: 01/19/23 20:49 Dose: 5 mg Ondansetron HCl (Ondansetron Hcl 4 Mg/2 Ml Vial) 4 mg IVPUSH ONCE PRN PRN Reason: Nausea and Vomiting Sodium Chloride (0.9 % Sodium Chloride Flush 10 Ml Syringe) 10 ml IVFLUSH Q8H [facility] Last Admin: 01/20/23 14:31 Dose: 10 ml Trazodone HCl (Trazodone Hcl 50 Mg Tablet) 50 mg PO BEDTIME PRN PRN Reason: Insomnia Last Admin: 01/16/23 20:46 Dose: 50 mg Allergies Allergies Allergy/AdvReac Type Severity Reaction Status Date / Time No Known Allergies Allergy Verified 10/31/22 14:47 Assessment & Plan Assessment & Plan (1) Catatonia: Status: Acute Code(s): F06.1 - Catatonic disorder due to known physiological condition (2) Cocaine use disorder: Status: Acute Code(s): F14.10 - Cocaine abuse, uncomplicated (3) Depression: Qualifiers: Active/Remission status: currently active Depression Type: major depressive disorder Major depression episode severity: severe Major depression recurrence: unspecified whether recurrent Psychotic features: with psychotic features Qualified Code(s): F32.3 - Major depressive disorder, single episode, severe with psychotic features Status: Acute Code(s): F32.A - Depression, unspecified Plan 11/03: 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 11/04: pt refusing meds and not taking anything PO. nevertheless appears slightly improved from yesterday, more verbal with less latency of response. advised to take meds and fluids. 11/05: ate and drank some last night. refusing meds. no longer grossly catatonic. continue current mgmt. 11/06: no PO intake in past 24H. refusing meds. parnell warning, 3-day up wed. 11/07: no food, had some water last night. recheck BMP. completed commitment paperwork. refusing meds. 11/08: denies eating or drinking but yesterday's breakfast tray was empty on return. commitment filed. refusing meds. 11/09: continues without PO intake, not attending to ADLs. refusing meds. hearing scheduled for next . labs from yesterday not indicative of concerning dehydration. 11/10 continue tx. more talkative, although guarded. No overt delusional content reported. denies SI/HI. 11/11: will order CMP for tomorrow morning given uncertainty ref PO intake 11/13: increase in BUN and Cr due to dehydration 11/14: continue tx. refuses medications but unable to provide explanation as to why not show understanding in terms of effects of decrease oral intake on renal function. 11/15: unchanged from last week. intermittent meals, BUN mildly elevated. court tomorrow. 11/16: court deferred for BEHZAD. no change in presentation. place on 1:1 for observation of PO intake. lying all day in bed, PMR, with shades drawn, for a darkened room. refusing medications. 11/17: DC olanzapine. offer SSRI. eating and drinking this morning, after having been put on 1:1. continue current mgmt. commitment hearing likely next . 11/18: refusing to look at or speak with MD. clearly ate and drank more yesterday, up and out of room more. nevertheless, spends vast majority of his time lying in bed in the dark. refusing meds. 11/19: ate more yesterday and last night. DC 1:1. appearing catatonic today, no eye blink staring at ceiling not responding. 11/20: moderate PO intake yesterday. appearing more catatonic today. continue to offer meds. 11/21: catatonic. no report on sleep or PO intake as pt is off 1:1. continue to offer meds. 11/22: catatonic. labs reassuring. court tomorrow. 11/23: catatonic. committed and ordered meds in court. 11/24: start ativan 2 mg TID with IM back-up for catatonia. plan to start neuroleptics and anti-depressants once catatonia improved. 11/25: decrease ativan to 1mg tid as he had no response to 2 mg and might be experiencing sedation from it 11/26: More alert on lower ativan dose but remains non-verbal and lying in bed 11/27 increase ativan back to 2mg po TID back up IM. 11/28: T/C gaining IV access to facilitate delivery of ativan; plan to increase to QID dosing. remains catatonic. case d/w nursing administration and medical registrardirector of corporate marketing. 11/29: gain IV access today, start ativan 2 mg IV QID. was out of bed, eating and speaking yesterday evening. 11/30: 1:1 as he removed IV access, apparently. was up in kitchen getting food on evening shift. continue current mgmt. 12/01: up twice in the past 24H, ate some, swore that lights in his room had been turned on. T/C adding valium 2 mg TID IV (per court order, maximum of 8 mg ativan may be given per day) and/or antipsychotic to regimen. case D/W david. 12/02: Check comprehensive metabolic labs in AM. Continue current management. 12/03: Improved post IM dose of Zyprexa last night. Ate better. More communicative. Continue current plan of care. 12/04: some improvement over w/e. increase IM zyprexa t HS to 5 mg each. continue current mgmt. 12/05: continue current mgmt. up several times yesterday, had conversation with reza nurse, observed eating dinner. 12/06: less active yesterday. did not receive IM zyprexa last night. continue current mgmt. 12/07: received zyprexa IM last night. up for breakfast this morning, exchanged some words with MD for first time in weeks. indicated he has a depressed mood. not opposed to anti-depressant. will start prozac liquid daily. 12/08: lying in bed, not responsive. several interactions with staff yesterday, limited and often non-verbal. refused PO prozac. continue current mgmt. 12/09: still catatonic. 12/10 still catatonic 12/11/22 Patient intermittently responsive often refusing p.o. meds may require ECT 12/12/2022 Patient remains mostly electively mute intermittently catatonic with some periods of verbal discourse 12/13/22 more verbal hx of recurrent depression still gets iv ativan refuses po meds 12 14 22 Continue Ativan and intravenous is encouraged fluoxetine continue olanzapine 5 mg patient does not appear to be psychotic would encourage ECT 12/15/2022 Continue plan of care labs reviewed sodium creatinine within normal limits 12/16: Continue current regimen and plans. Switch Zyprexa to a.m. use. 12/17: Continue current regimen and plans. Decrease Ativan by 2 mg and increase Zyprexa by 10 mg 12/18: continue current regimen. no change in catatonic presentation. 12/19: return ativan to 2 mg QID and zyprexa to 10 mg QHS only. 12/20: due to possibility of akathisia from zyprexa, will try lower potency anti-psychotic, thorazine. DC zyprexa and start thorazine 100 mg PO QHS with 50 mg IM if refuses PO. 12/21: received thorazine last NOC, IM. ate dinner and spoke with EMERY cobb. generally no improvement, no change in presentation. 12/22: awake briefly this morning, endorsing depression. vague, unable to state preference for Tx. continue current mgmt. hearing scheduled for next sunday re ECT. 12/23 ck labs consider iv fluids get med clearance ect 12/24/2022 Of Thorazine discontinued has not been effective can lower blood pressure and someone already with periods of dehydration strongly would benefit from ECT trial 12/25: continue current mgmt. up briefly today to move rooms. ate 3 meals yesterday, reportedly. hearing tomorrow for ECT. 12/26: staring today, no responses. hearing held today, judgment pending. decrease ativan to 2 mg TID in anticipation of ECT. medical clearance and EKG ordered. 12/26: staring today, no responses. IV access lost, will give IM ativan until IV access regained. awaiting word from court on ECT. 12/27: medically cleared for ECT, court ordered ECT. start ECT tomorrow. case d/w david in detail. taper ativan to 4 mg today, may need flumazenil tomorrow prior to ECT. continue ativan taper over w/e. 12/29: ECT #1 completed, clear improvement in mental status and insight. continue ativan taper. ECT #2 on sunday. 12/30: took PO meds yesterday morning after ECT, refusing since. continue current mgmt. 12/31: continue ativan taper. awake and verbal today. not eating or taking meds PO. ECT #2 tomorrow. 01/01: missed morning ECT due to inability to gain IV access. U/S guided IV inserted, will go for anoon ECT. PMR, inert, lying in bed; awake, however, and able to exchange a few words. 01/02 yesterday he had a he has ECT in the evening. Slight improvement. We added a midline IV access sings we could not get an IV access on the previous ECT easily. ECT tomorrow AM. 01/03: ECT #3 completed this morning. remains more alert and responsive than prior, yet still very poor PO intake and refusing PO meds. continue current mgmt. 01/04: remains alert and interactive. still PMR, poor appetite. ECT scheduled for tomorrow. 01/05: ECT #4 completed, continues more alert and engageable than prior to start of ECT. still not doing ADLs, not eating/drinking adequately. ECT #5 on sunday. 01/06: ECT #5 Sunday. Improved (known to this physician underwriter from interaction over a month ago.). Continue current treatment plan. 01/07: Continue current management. 01/08: s/p ECT #5. improvements continue. trimmed gallegos, ate 3 meals yesterday, taking PO meds. ECT #6 . 01/09: informed SW that while catatonic had been hearing the voice of god telling him not to eat or he would go to hell. clinical presentation as per yesterday. ECT #6 tomorrow. concerned ECT is erasing [his] mind. 01/10: notably more social and visible in the milieu today. start zyprexa 5 at bedtime and increase prozac from 20 mg daily to 40 mg daily as of tomorrow. ECT #6 completed. 01/11: stably improved presentation. ECT #7 tomorrow. continue current mgmt. 9/1: ECT #7 completed without complication. stable gains. continue current mgmt. 01/13: Continue current regimen and plans 01/14: Continue current plans and regimen 01/15: Continue current regimen and plans 01/16: day by day marginal improvements. more ambulatory and social, now making discharge plans with . ECT #8 tomorrow. 01/17: for ECT #8 today. daily recovery continues. 01/18: for ECT #9 tomorrow. improving daily, today wearing street clothes for the first time this hospitalization. 01/19: ECT #9 today. planning to complete series of 12 as of next sunday, discharge to [facility] shortly thereafter. 01/20/2023: No changes Reason for continued inpatient stay Substantial Risk for: rapid decompensation Time Spent With Patient Time: Total time managing care of this patient today ____ minutes.
[2023-01-20 19:45] VITALS: BP 139/67; PULSE 104; RESP 16; TEMP 36.7; O2SAT 99
[2023-01-20] MEDS: OLANZapine 5 MG TABLET PO (20:06)
[2023-01-21] MEDS: 0.9 % Sodium Chloride Flush 10 ML SYRINGE IVFLUSH ×3 (06:59→22:41)
[2023-01-21] MEDS: Nicotine 7 MG PATCH.TD24 TRANSDERMA (07:55)
[2023-01-21] MEDS: FLUoxetine HCl 20 MG CAPSULE 40 MG PO (07:55)
[2023-01-21 08:18] VITALS: BP 130/79; PULSE 99; RESP 18; TEMP 36.5; O2SAT 98
--- NOTE | 2023-01-21 15:55 | P.PNPSI_ITS ---
Subjective Subjective Date of Service: 01/21/23 Reason For Visit: catatonia Interim History: Overall no significant changes since yesterday and reports feeling that things continue to improve i.e. less depressed, socializing more and no hallucinations. Denied any side effects from current treatment plan. Sleep energy and appetite okay. Medication Compliance: Yes Side effects from medications: No Attending Groups: Yes Review of Systems Acute medical concerns: No Review of Systems Review of Systems Unremarkable Mental Status Exam Mental Status Exam Narrative: pleasant. Engaged. Casually dressed. Fair self-care. Engaging socially. Unremarkable speech. Affect is restricted. Reports feeling less depressed. No SI. No HI. No psychosis. Insight and judgment fair Diagnostics Vital Signs (24Hr): Vital Signs - 24 hr 01/20/23 19:45 01/21/23 08:18 Temperature 98.1 F 97.7 F Pulse Rate 104 H 99 Respiratory Rate 16 18 Blood Pressure 139/67 130/79 Pulse Oximetry 99 98 Oxygen Delivery Method Room Air Room Air BMI result Body Mass Index 24.7 Labs 12/23/22 17:51 Medications Medications Current Medications Acetaminophen (Acetaminophen 325 Mg Tablet) 650 mg PO Q6H PRN PRN Reason: Headache/Pain Mild Scale (1-3) Last Admin: 01/18/23 17:50 Dose: 650 mg Al Hydroxide/Mg Hydroxide (Magnesium Hydrox/Alum Hydrox 30 Ml Oral.Susp) 30 ml PO Q6H PRN PRN Reason: Heartburn/Nausea Artificial Tears (Artificial Tears 15 Ml Drops) 2 drop EYE-BOTH Q4H PRN PRN Reason: Dry Eyes Last Admin: 12/02/22 14:19 Dose: 2 drop Benzocaine (Throat Lozenge, Medicated Lozenge) 1 lozenge MUCOUS MEM Q2H PRN PRN Reason: Sore Throat Last Admin: 12/29/22 12:23 Dose: 1 lozenge Fluoxetine HCl (Fluoxetine Hcl 20 Mg Capsule) 40 mg PO DAILY [facility] Last Admin: 01/21/23 07:55 Dose: 40 mg Heparin Sodium (Porcine) (Heparin Sodium,Porcine Flush 50 Units/5 Ml Syringe) 50 units IVFLUSH DAILY PRN PRN Reason: occlusion Hydroxyzine HCl (Hydroxyzine Hcl 25 Mg Tablet) 25 mg PO Q6H PRN PRN Reason: Anxiety Last Admin: 01/18/23 17:49 Dose: 25 mg Magnesium Hydroxide (Milk Of Magnesia 30 Ml Oral.Susp) 30 ml PO DAILY PRN PRN Reason: Constipation Nicotine (Nicotine 7 Mg Patch.Td24) 7 mg TRANSDERMA DAILY [facility] Last Admin: 01/21/23 07:55 Dose: 7 mg Nicotine Polacrilex (Nicotine Polacrilex Lozenge 2 Mg Lozenge) 2 mg BUCCAL Q2H PRN PRN Reason: nicotine withdrawal Last Admin: 01/14/23 16:13 Dose: 2 mg Olanzapine (Olanzapine 5 Mg Tablet) 5 mg PO BEDTIME [facility] Last Admin: 01/20/23 20:06 Dose: 5 mg Ondansetron HCl (Ondansetron Hcl 4 Mg/2 Ml Vial) 4 mg IVPUSH ONCE PRN PRN Reason: Nausea and Vomiting Sodium Chloride (0.9 % Sodium Chloride Flush 10 Ml Syringe) 10 ml IVFLUSH Q8H [facility] Last Admin: 01/21/23 14:50 Dose: 10 ml Trazodone HCl (Trazodone Hcl 50 Mg Tablet) 50 mg PO BEDTIME PRN PRN Reason: Insomnia Last Admin: 01/16/23 20:46 Dose: 50 mg Allergies Allergies Allergy/AdvReac Type Severity Reaction Status Date / Time No Known Allergies Allergy Verified 10/31/22 14:47 Assessment & Plan Assessment & Plan (1) Catatonia: Status: Acute Code(s): F06.1 - Catatonic disorder due to known physiological condition (2) Cocaine use disorder: Status: Acute Code(s): F14.10 - Cocaine abuse, uncomplicated (3) Depression: Qualifiers: Active/Remission status: currently active Depression Type: major depressive disorder Major depression episode severity: severe Major depression recurrence: unspecified whether recurrent Psychotic features: with psychotic features Qualified Code(s): F32.3 - Major depressive disorder, single episode, severe with psychotic features Status: Acute Code(s): F32.A - Depression, unspecified Plan 11/03: 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 11/04: pt refusing meds and not taking anything PO. nevertheless appears slightly improved from yesterday, more verbal with less latency of response. advised to take meds and fluids. 11/05: ate and drank some last night. refusing meds. no longer grossly catatonic. continue current mgmt. 11/06: no PO intake in past 24H. refusing meds. parnell warning, 3-day up . 11/07: no food, had some water last night. recheck BMP. completed commitment paperwork. refusing meds. 11/08: denies eating or drinking but yesterday's breakfast tray was empty on return. commitment filed. refusing meds. 11/09: continues without PO intake, not attending to ADLs. refusing meds. hearing scheduled for next . labs from yesterday not indicative of concerning dehydration. 11/10 continue tx. more talkative, although guarded. No overt delusional content reported. denies SI/HI. 11/11: will order CMP for tomorrow morning given uncertainty ref PO intake 11/13: increase in BUN and Cr due to dehydration 11/14: continue tx. refuses medications but unable to provide explanation as to why not show understanding in terms of effects of decrease oral intake on renal function. 11/15: unchanged from last week. intermittent meals, BUN mildly elevated. court tomorrow. 11/16: court deferred for BEHZAD. no change in presentation. place on 1:1 for observation of PO intake. lying all day in bed, PMR, with shades drawn, for a darkened room. refusing medications. 11/17: DC olanzapine. offer SSRI. eating and drinking this morning, after having been put on 1:1. continue current mgmt. commitment hearing likely next . 11/18: refusing to look at or speak with MD. clearly ate and drank more yesterday, up and out of room more. nevertheless, spends vast majority of his time lying in bed in the dark. refusing meds. 11/19: ate more yesterday and last night. DC 1:1. appearing catatonic today, no eye blink staring at ceiling not responding. 11/20: moderate PO intake yesterday. appearing more catatonic today. continue to offer meds. 11/21: catatonic. no report on sleep or PO intake as pt is off 1:1. continue to offer meds. 11/22: catatonic. labs reassuring. court tomorrow. 11/23: catatonic. committed and ordered meds in court. 11/24: start ativan 2 mg TID with IM back-up for catatonia. plan to start neuroleptics and anti-depressants once catatonia improved. 11/25: decrease ativan to 1mg tid as he had no response to 2 mg and might be experiencing sedation from it 11/26: More alert on lower ativan dose but remains non-verbal and lying in bed 11/27 increase ativan back to 2mg po TID back up IM. 11/28: T/C gaining IV access to facilitate delivery of ativan; plan to increase to QID dosing. remains catatonic. case d/w nursing administration and medical collections representativedirector learning and development. 11/29: gain IV access today, start ativan 2 mg IV QID. was out of bed, eating and speaking yesterday evening. 11/30: 1:1 as he removed IV access, apparently. was up in kitchen getting food on evening shift. continue current mgmt. 12/01: up twice in the past 24H, ate some, swore that lights in his room had been turned on. T/C adding valium 2 mg TID IV (per court order, maximum of 8 mg ativan may be given per day) and/or antipsychotic to regimen. case D/W david. 12/02: Check comprehensive metabolic labs in AM. Continue current management. 12/03: Improved post IM dose of Zyprexa last night. Ate better. More communicative. Continue current plan of care. 12/04: some improvement over w/e. increase IM zyprexa t HS to 5 mg each. continue current mgmt. 12/05: continue current mgmt. up several times yesterday, had conversation with reza nurse, observed eating dinner. 12/06: less active yesterday. did not receive IM zyprexa last night. continue current mgmt. 12/07: received zyprexa IM last night. up for breakfast this morning, exchanged some words with MD for first time in weeks. indicated he has a depressed mood. not opposed to anti-depressant. will start prozac liquid daily. 12/08: lying in bed, not responsive. several interactions with staff yesterday, limited and often non-verbal. refused PO prozac. continue current mgmt. 12/09: still catatonic. 12/10 still catatonic 12/11/22 Patient intermittently responsive often refusing p.o. meds may require ECT 12/12/2022 Patient remains mostly electively mute intermittently catatonic with some periods of verbal discourse 12/13/22 more verbal hx of recurrent depression still gets iv ativan refuses po meds 12 14 22 Continue Ativan and intravenous is encouraged fluoxetine continue olanzapine 5 mg patient does not appear to be psychotic would encourage ECT 12/15/2022 Continue plan of care labs reviewed sodium creatinine within normal limits 12/16: Continue current regimen and plans. Switch Zyprexa to a.m. use. 12/17: Continue current regimen and plans. Decrease Ativan by 2 mg and increase Zyprexa by 10 mg 12/18: continue current regimen. no change in catatonic presentation. 12/19: return ativan to 2 mg QID and zyprexa to 10 mg QHS only. 12/20: due to possibility of akathisia from zyprexa, will try lower potency anti- psychotic, thorazine. DC zyprexa and start thorazine 100 mg PO QHS with 50 mg IM if refuses PO. 12/21: received thorazine last NOC, IM. ate dinner and spoke with EMERY cobb. generally no improvement, no change in presentation. 12/22: awake briefly this morning, endorsing depression. vague, unable to state preference for Tx. continue current mgmt. hearing scheduled for next sunday re ECT. 12/23 ck labs consider iv fluids get med clearance ect 12/24/2022 Of Thorazine discontinued has not been effective can lower blood pressure and someone already with periods of dehydration strongly would benefit from ECT trial 12/25: continue current mgmt. up briefly today to move rooms. ate 3 meals yesterday, reportedly. hearing tomorrow for ECT. 12/26: staring today, no responses. hearing held today, judgment pending. decrease ativan to 2 mg TID in anticipation of ECT. medical clearance and EKG ordered. 12/26: staring today, no responses. IV access lost, will give IM ativan until IV access regained. awaiting word from court on ECT. 12/27: medically cleared for ECT, court ordered ECT. start ECT tomorrow. case d/w david in detail. taper ativan to 4 mg today, may need flumazenil tomorrow prior to ECT. continue ativan taper over w/e. 12/29: ECT #1 completed, clear improvement in mental status and insight. continue ativan taper. ECT #2 on sunday. 12/30: took PO meds yesterday morning after ECT, refusing since. continue current mgmt. 12/31: continue ativan taper. awake and verbal today. not eating or taking meds PO. ECT #2 tomorrow. 01/01: missed morning ECT due to inability to gain IV access. U/S guided IV inserted, will go for anoon ECT. PMR, inert, lying in bed; awake, however, and able to exchange a few words. 01/02 yesterday he had a he has ECT in the evening. Slight improvement. We added a midline IV access sings we could not get an IV access on the previous ECT easily. ECT tomorrow AM. 01/03: ECT #3 completed this morning. remains more alert and responsive than prior, yet still very poor PO intake and refusing PO meds. continue current mgmt. 01/04: remains alert and interactive. still PMR, poor appetite. ECT scheduled for tomorrow. 01/05: ECT #4 completed, continues more alert and engageable than prior to start of ECT. still not doing ADLs, not eating/drinking adequately. ECT #5 on sunday. 01/06: ECT #5 Sunday. Improved (known to this typewriters functional tester from interaction over a month ago.). Continue current treatment plan. 01/07: Continue current management. 01/08: s/p ECT #5. improvements continue. trimmed gallegos, ate 3 meals yesterday, taking PO meds. ECT #6 . 01/09: informed SW that while catatonic had been hearing the voice of god telling him not to eat or he would go to hell. clinical presentation as per yesterday. ECT #6 tomorrow. concerned ECT is erasing [his] mind. 01/10: notably more social and visible in the milieu today. start zyprexa 5 at bedtime and increase prozac from 20 mg daily to 40 mg daily as of tomorrow. ECT #6 completed. 01/11: stably improved presentation. ECT #7 tomorrow. continue current mgmt. 01/12: ECT #7 completed without complication. stable gains. continue current mgmt. 01/13: Continue current regimen and plans 01/14: Continue current plans and regimen 01/15: Continue current regimen and plans 01/16: day by day marginal improvements. more ambulatory and social, now making discharge plans with . ECT #8 tomorrow. 01/17: for ECT #8 today. daily recovery continues. 01/18: for ECT #9 tomorrow. improving daily, today wearing street clothes for the first time this hospitalization. 01/19: ECT #9 today. planning to complete series of 12 as of next sunday, discharge to [facility] shortly thereafter. 01/21/2023: No changes, With ECT 10. Scheduled for tomorrow Reason for continued inpatient stay Substantial Risk for: rapid decompensation Time Spent With Patient Time: Total time managing care of this patient today ____ minutes.
[2023-01-21] MEDS: OLANZapine 5 MG TABLET PO (21:49)
[2023-01-21 21:55] VITALS: BP 127/79; PULSE 77; TEMP 36.6; O2SAT 100
[2023-01-22] VITALS (10 sets, daily range): BP systolic 112–133; BP diastolic 70–88; PULSE 84–106; RESP 14–18; TEMP 36.2–36.8; O2SAT 93–99
--- NOTE | 2023-01-22 06:50 | HO.ANESPROP2 ---
[facility] Active Problems Active Problems: All Active Problems (Updated 01/19/23 @ 14:07 by Wu Fraga) Catatonia (Acute) Cocaine use disorder, mild, in early remission (Acute) Mood disorder (Acute) Cocaine use disorder (Acute) Depression (Acute) Anorexia (Acute) Past Medical History Medical History Cocaine use disorder Family History Family history of problems with anesthesia: No Surgical History History of Problems with Anesthesia: No Social History Social History Household Members: None Housing: Other Housing Other:: TSS Unable to assess alcohol history related to: Refusing to respond Patient Tobacco Use Status: Never used Tobacco Second Hand Smoke Exposure: No Use of substances other than those prescribed or required for medical reasons: No Currently Displaying Signs/Symptoms of Drug Intoxication Withdrawal: No Have you been hit, kicked, punched, or otherwise hurt by someone within the past year? If so, by whom?: No Do you feel safe in your current relationship?: No Current Relationship Is there a partner from a previous relationship who is making you feel unsafe now?: No Are you made to feel afraid or neglected: No Are you DNR?: No Advance Directives: No Advance Directives Information Provided: Yes Advance Directives on File: No Do you have thoughts of harming others: None Do you have a plan to hurt others: No Plan Recently lost weight without trying: No Nutrition Risks: No Nutritional Risk Poor oral hygiene: No service: No Sexual orientation: Decline to Answer Meds Allergies Allergy/AdvReac Type Severity Reaction Status Date / Time No Known Allergies Allergy Verified 10/31/22 14:47 Active Medications: Current Medications Acetaminophen (Acetaminophen 325 Mg Tablet) 650 mg PO Q6H PRN PRN Reason: Headache/Pain Mild Scale (1-3) Last Admin: 01/18/23 17:50 Dose: 650 mg Al Hydroxide/Mg Hydroxide (Magnesium Hydrox/Alum Hydrox 30 Ml Oral.Susp) 30 ml PO Q6H PRN PRN Reason: Heartburn/Nausea Artificial Tears (Artificial Tears 15 Ml Drops) 2 drop EYE-BOTH Q4H PRN PRN Reason: Dry Eyes Last Admin: 12/02/22 14:19 Dose: 2 drop Benzocaine (Throat Lozenge, Medicated Lozenge) 1 lozenge MUCOUS MEM Q2H PRN PRN Reason: Sore Throat Last Admin: 12/29/22 12:23 Dose: 1 lozenge Fluoxetine HCl (Fluoxetine Hcl 20 Mg Capsule) 40 mg PO DAILY [facility] Last Admin: 01/21/23 07:55 Dose: 40 mg Heparin Sodium (Porcine) (Heparin Sodium,Porcine Flush 50 Units/5 Ml Syringe) 50 units IVFLUSH DAILY PRN PRN Reason: occlusion Hydroxyzine HCl (Hydroxyzine Hcl 25 Mg Tablet) 25 mg PO Q6H PRN PRN Reason: Anxiety Last Admin: 01/18/23 17:49 Dose: 25 mg Magnesium Hydroxide (Milk Of Magnesia 30 Ml Oral.Susp) 30 ml PO DAILY PRN PRN Reason: Constipation Nicotine (Nicotine 7 Mg Patch.Td24) 7 mg TRANSDERMA DAILY [facility] Last Admin: 01/21/23 07:55 Dose: 7 mg Nicotine Polacrilex (Nicotine Polacrilex Lozenge 2 Mg Lozenge) 2 mg BUCCAL Q2H PRN PRN Reason: nicotine withdrawal Last Admin: 01/14/23 16:13 Dose: 2 mg Olanzapine (Olanzapine 5 Mg Tablet) 5 mg PO BEDTIME [facility] Last Admin: 01/21/23 21:49 Dose: 5 mg Ondansetron HCl (Ondansetron Hcl 4 Mg/2 Ml Vial) 4 mg IVPUSH ONCE PRN PRN Reason: Nausea and Vomiting Sodium Chloride (0.9 % Sodium Chloride Flush 10 Ml Syringe) 10 ml IVFLUSH Q8H [facility] Last Admin: 01/22/23 06:21 Dose: Not Given Trazodone HCl (Trazodone Hcl 50 Mg Tablet) 50 mg PO BEDTIME PRN PRN Reason: Insomnia Last Admin: 01/16/23 20:46 Dose: 50 mg Home Medications Medication Instructions Recorded Confirmed Last Taken Type No Known Home Meds 10/31/22 11/04/22 Unknown History Exam Exam Date and Time: January 22, 2023 0650 Height,Weight and Vital Signs: Height 6 ft Weight 82.6 kg Last Vital Signs Temp 98.2 F 01/22/23 06:26 Pulse 91 01/22/23 06:26 Resp 16 01/22/23 06:26 BP 130/87 01/22/23 06:26 Pulse Ox 98 01/22/23 06:26 O2 Del Method Room Air 01/22/23 06:26 O2 Flow Rate 2 01/19/23 14:25 Pertinent Lab Results Pertinent Lab Results: Laboratory Tests 11/03/22 11/05/22 11/08/22 15:48 12:58 15:07 Sodium 142 140 Potassium 4.1 D 4.1 Chloride 108 105 Carbon Dioxide 26 28 Anion Gap 12 11 L BUN 23 H 15 Creatinine 0.73 0.83 0.72 Estim Creat Clear Calc TNP TNP TNP Estimated GFR > 60 > 60 > 60 Random Glucose 97 95 Calcium 9.1 9.7 D Total Bilirubin AST ALT Alkaline Phosphatase Total Protein Albumin 11/13/22 11/16/22 11/22/22 08:00 08:11 11:55 Sodium 140 138 137 Potassium 4.8 4.9 4.5 Chloride 103 106 106 Carbon Dioxide 22 22 25 Anion Gap 20 15 11 L BUN 25 H 16 16 Creatinine 1.07 0.97 0.86 Estim Creat Clear Calc TNP TNP TNP Estimated GFR > 60 > 60 > 60 Random Glucose 73 89 93 Calcium 10.0 9.6 9.9 Total Bilirubin 0.9 0.9 AST 21 22 ALT 16 15 Alkaline Phosphatase 62 59 Total Protein 7.1 6.8 Albumin 4.0 3.6 12/03/22 12/15/22 12/23/22 07:45 09:53 17:51 Sodium 139 139 139 Potassium 4.8 4.3 4.2 Chloride 107 106 104 Carbon Dioxide 24 23 23 Anion Gap 13 14 16 BUN 13 11 11 Creatinine 0.73 0.74 0.77 Estim Creat Clear Calc TNP TNP TNP Estimated GFR > 60 > 60 > 60 Random Glucose 103 86 79 Calcium 9.3 D 9.3 9.8 Total Bilirubin 0.5 0.7 0.8 AST 25 18 24 ALT 20 16 16 Alkaline Phosphatase 47 55 68 Total Protein 6.4 L 6.5 7.1 Albumin 3.5 3.6 4.0 Airway Mallampati Class: II TM Dist: >3cm Neck ROM: Full Heart: rrr Lungs: cta Assessment and Plan Assessment Anesthesia Assessment: Anesthesia Plan Discussed and Chart Reviewed Final Anesthetic Review Family History of Problems with Anesthesia: No History of Problems with Anesthesia: No NPO: Yes ASA Class: III Final Preanesthetic Review: No Changes in Pt Med Stat, Meds/Allgs Chart Reviewed and Consent Obtained/Reviewed Patient Risk: Intermediate Procedure Risk: Intermediate Anesthetic Plan Anesthetic Plan: GA Disposition: Standard PACU
--- NOTE | 2023-01-22 07:05 | MHC.SHP ---
Pre-Procedural Eval Section A Date of Service: 01/22/23 The patient is an INPATIENT: Yes Changes since office visit: No Cold of Flu in the past 2 weeks, No New Medical Problems, No Changes in Medication and No Patient answered all questions The History & Physical has been completed within 30 days and I have reviewed it.: Yes Section B Chief Complaint: catatonia Allergies: Allergies Allergy/AdvReac Type Severity Reaction Status Date / Time No Known Allergies Allergy Verified 10/31/22 14:47 Plan I have reviewed the history and physical and performed a pertinent physical examination on my patient. No changes have occurred unless specified. Time Spent With Patient Time: Total time managing care of this patient today ____ minutes.
--- NOTE | 2023-01-22 07:20 | HO.ECTPROC ---
ECT Procedure Note Diagnosis/Treatment Date of Service: 01/22/23 Diagnosis: Catatonia Previous ECT Date: 01/19/23 Current Treatment Number: 10 Treatment: Series Interval Clinical Notes: The patient's catatonia has improved remarkably, he reported some mild confusion and restlesness. Last ECT, he needed Midazolam and Propofol when he woke up. Now much better, no side effects Time: Total time managing care of this patient today __30__ minutes. ECT Settings Device: THYMATRON DGx Electrode Placement: Right Unilateral Program/Pulse Width: 0.50 Energy Percent: 100 Seizure Duration By EEG (in seconds): 36 By Motor Observation (in seconds): 0 Medications Administration General Anesthetic: Etomidate (14) Muscle Relaxant: Succinylcholine (100) Ancillary Medications Analgesics: Torodol - Pre ECT (30) Anti-emetics: Zofran - Pre ECT (4) Miscillaneous Medications: Propofol and Midazolam Airway Management Airway Management: Bag Mask Ventilation Treatment Recommendations No Changes Recommended: No change Pt Tolerated Procedure w/o Issue: Yes
[2023-01-22] MEDS: Nicotine 7 MG PATCH.TD24 TRANSDERMA (08:38)
[2023-01-22] MEDS: FLUoxetine HCl 20 MG CAPSULE 40 MG PO (08:38)
--- NOTE | 2023-01-22 14:00 | HO.PSYCHPN ---
Subjective Subjective Date of Service: 01/22/23 Reason For Visit: catatonia Interim History: reports everything is fine. no changes, no news. per staff, low anxiety. denies depression. social. playing cards. slept well overnight. ECT this morning. Mental Status Exam Mental Status Exam Narrative: improving self-care, dressed in street clothes. up and about the unit, engaging in more programming and social activities. cooperative. speech soft, nml amount, flattened prosody. thoughts linear and logical. affect constricted and hypo-intense. no SI/HI/AVH expressed. Insight and judgment improved. Diagnostics Vital Signs (24Hr): Vital Signs - 24 hr 01/21/23 21:55 01/22/23 05:48 01/22/23 06:26 Temperature 97.8 F 97.7 F 98.2 F Pulse Rate 77 84 91 Respiratory Rate 14 16 Blood Pressure 127/79 117/73 130/87 Pulse Oximetry 100 98 98 Oxygen Delivery Method Room Air Room Air Oxygen Flow Rate 01/22/23 07:25 01/22/23 07:30 01/22/23 07:35 Temperature 98.2 F Pulse Rate 106 H 106 H 97 Respiratory Rate 15 16 17 Blood Pressure 133/88 115/85 112/82 Pulse Oximetry 93 98 94 Oxygen Delivery Method Nasal Cannula with ETCO2 Nasal Cannula with ETCO2 Nasal Cannula with ETCO2 Oxygen Flow Rate 2 2 2 01/22/23 07:40 01/22/23 07:55 01/22/23 08:12 Temperature 98.0 F Pulse Rate 104 H 91 99 Respiratory Rate 17 17 17 Blood Pressure 119/74 113/75 113/70 Pulse Oximetry 95 98 99 Oxygen Delivery Method Nasal Cannula with ETCO2 Nasal Cannula with ETCO2 Room Air Oxygen Flow Rate 2 2 01/22/23 09:36 Temperature 97.1 F Pulse Rate 85 Respiratory Rate 18 Blood Pressure 133/84 Pulse Oximetry 98 Oxygen Delivery Method Oxygen Flow Rate BMI result Body Mass Index 24.7 Labs 12/23/22 17:51 Medications Medications Current Medications Acetaminophen (Acetaminophen 325 Mg Tablet) 650 mg PO Q6H PRN PRN Reason: Headache/Pain Mild Scale (1-3) Last Admin: 01/18/23 17:50 Dose: 650 mg Al Hydroxide/Mg Hydroxide (Magnesium Hydrox/Alum Hydrox 30 Ml Oral.Susp) 30 ml PO Q6H PRN PRN Reason: Heartburn/Nausea Artificial Tears (Artificial Tears 15 Ml Drops) 2 drop EYE-BOTH Q4H PRN PRN Reason: Dry Eyes Last Admin: 12/02/22 14:19 Dose: 2 drop Benzocaine (Throat Lozenge, Medicated Lozenge) 1 lozenge MUCOUS MEM Q2H PRN PRN Reason: Sore Throat Last Admin: 12/29/22 12:23 Dose: 1 lozenge Fluoxetine HCl (Fluoxetine Hcl 20 Mg Capsule) 40 mg PO DAILY [facility] Last Admin: 01/22/23 08:38 Dose: 40 mg Heparin Sodium (Porcine) (Heparin Sodium,Porcine Flush 50 Units/5 Ml Syringe) 50 units IVFLUSH DAILY PRN PRN Reason: occlusion Hydroxyzine HCl (Hydroxyzine Hcl 25 Mg Tablet) 25 mg PO Q6H PRN PRN Reason: Anxiety Last Admin: 01/18/23 17:49 Dose: 25 mg Magnesium Hydroxide (Milk Of Magnesia 30 Ml Oral.Susp) 30 ml PO DAILY PRN PRN Reason: Constipation Nicotine (Nicotine 7 Mg Patch.Td24) 7 mg TRANSDERMA DAILY [facility] Last Admin: 01/22/23 08:38 Dose: 7 mg Nicotine Polacrilex (Nicotine Polacrilex Lozenge 2 Mg Lozenge) 2 mg BUCCAL Q2H PRN PRN Reason: nicotine withdrawal Last Admin: 01/14/23 16:13 Dose: 2 mg Olanzapine (Olanzapine 5 Mg Tablet) 5 mg PO BEDTIME [facility] Last Admin: 01/21/23 21:49 Dose: 5 mg Ondansetron HCl (Ondansetron Hcl 4 Mg/2 Ml Vial) 4 mg IVPUSH ONCE PRN PRN Reason: Nausea and Vomiting Sodium Chloride (0.9 % Sodium Chloride Flush 10 Ml Syringe) 10 ml IVFLUSH Q8H [facility] Last Admin: 01/22/23 06:21 Dose: Not Given Trazodone HCl (Trazodone Hcl 50 Mg Tablet) 50 mg PO BEDTIME PRN PRN Reason: Insomnia Last Admin: 01/16/23 20:46 Dose: 50 mg Allergies Allergies Allergy/AdvReac Type Severity Reaction Status Date / Time No Known Allergies Allergy Verified 10/31/22 14:47 Assessment & Plan Assessment & Plan (1) Catatonia: Status: Acute Code(s): F06.1 - Catatonic disorder due to known physiological condition (2) Cocaine use disorder: Status: Acute Code(s): F14.10 - Cocaine abuse, uncomplicated (3) Depression: Qualifiers: Active/Remission status: currently active Depression Type: major depressive disorder Major depression episode severity: severe Major depression recurrence: unspecified whether recurrent Psychotic features: with psychotic features Qualified Code(s): F32.3 - Major depressive disorder, single episode, severe with psychotic features Status: Acute Code(s): F32.A - Depression, unspecified Plan 11/03: 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 11/04: pt refusing meds and not taking anything PO. nevertheless appears slightly improved from yesterday, more verbal with less latency of response. advised to take meds and fluids. 11/05: ate and drank some last night. refusing meds. no longer grossly catatonic. continue current mgmt. 11/06: no PO intake in past 24H. refusing meds. parnell warning, 3-day up . 11/07: no food, had some water last night. recheck BMP. completed commitment paperwork. refusing meds. 11/08: denies eating or drinking but yesterday's breakfast tray was empty on return. commitment filed. refusing meds. 11/09: continues without PO intake, not attending to ADLs. refusing meds. hearing scheduled for next . labs from yesterday not indicative of concerning dehydration. 11/10 continue tx. more talkative, although guarded. No overt delusional content reported. denies SI/HI. 11/11: will order CMP for tomorrow morning given uncertainty ref PO intake 11/13: increase in BUN and Cr due to dehydration 11/14: continue tx. refuses medications but unable to provide explanation as to why not show understanding in terms of effects of decrease oral intake on renal function. 11/15: unchanged from last week. intermittent meals, BUN mildly elevated. court tomorrow. 11/16: court deferred for BEHZAD. no change in presentation. place on 1:1 for observation of PO intake. lying all day in bed, PMR, with shades drawn, for a darkened room. refusing medications. 11/17: DC olanzapine. offer SSRI. eating and drinking this morning, after having been put on 1:1. continue current mgmt. commitment hearing likely next . 11/18: refusing to look at or speak with MD. clearly ate and drank more yesterday, up and out of room more. nevertheless, spends vast majority of his time lying in bed in the dark. refusing meds. 11/19: ate more yesterday and last night. DC 1:1. appearing catatonic today, no eye blink staring at ceiling not responding. 11/20: moderate PO intake yesterday. appearing more catatonic today. continue to offer meds. 11/21: catatonic. no report on sleep or PO intake as pt is off 1:1. continue to offer meds. 11/22: catatonic. labs reassuring. court tomorrow. 11/23: catatonic. committed and ordered meds in court. 11/24: start ativan 2 mg TID with IM back-up for catatonia. plan to start neuroleptics and anti-depressants once catatonia improved. 11/25: decrease ativan to 1mg tid as he had no response to 2 mg and might be experiencing sedation from it 11/26: More alert on lower ativan dose but remains non-verbal and lying in bed 11/27 increase ativan back to 2mg po TID back up IM. 11/28: T/C gaining IV access to facilitate delivery of ativan; plan to increase to QID dosing. remains catatonic. case d/w nursing administration and medical microbiologistdirector of counseling. 11/29: gain IV access today, start ativan 2 mg IV QID. was out of bed, eating and speaking yesterday evening. 11/30: 1:1 as he removed IV access, apparently. was up in kitchen getting food on evening shift. continue current mgmt. 12/01: up twice in the past 24H, ate some, swore that lights in his room had been turned on. T/C adding valium 2 mg TID IV (per court order, maximum of 8 mg ativan may be given per day) and/or antipsychotic to regimen. case D/W david. 12/02: Check comprehensive metabolic labs in AM. Continue current management. 12/03: Improved post IM dose of Zyprexa last night. Ate better. More communicative. Continue current plan of care. 12/04: some improvement over w/e. increase IM zyprexa t HS to 5 mg each. continue current mgmt. 12/05: continue current mgmt. up several times yesterday, had conversation with reza nurse, observed eating dinner. 12/06: less active yesterday. did not receive IM zyprexa last night. continue current mgmt. 12/07: received zyprexa IM last night. up for breakfast this morning, exchanged some words with MD for first time in weeks. indicated he has a depressed mood. not opposed to anti-depressant. will start prozac liquid daily. 12/08: lying in bed, not responsive. several interactions with staff yesterday, limited and often non-verbal. refused PO prozac. continue current mgmt. 12/09: still catatonic. 12/10 still catatonic 12/11/22 Patient intermittently responsive often refusing p.o. meds may require ECT 12/12/2022 Patient remains mostly electively mute intermittently catatonic with some periods of verbal discourse 12/13/22 more verbal hx of recurrent depression still gets iv ativan refuses po meds 12 14 22 Continue Ativan and intravenous is encouraged fluoxetine continue olanzapine 5 mg patient does not appear to be psychotic would encourage ECT 12/15/2022 Continue plan of care labs reviewed sodium creatinine within normal limits 12/16: Continue current regimen and plans. Switch Zyprexa to a.m. use. 12/17: Continue current regimen and plans. Decrease Ativan by 2 mg and increase Zyprexa by 10 mg 12/18: continue current regimen. no change in catatonic presentation. 12/19: return ativan to 2 mg QID and zyprexa to 10 mg QHS only. 12/20: due to possibility of akathisia from zyprexa, will try lower potency anti-psychotic, thorazine. DC zyprexa and start thorazine 100 mg PO QHS with 50 mg IM if refuses PO. 12/21: received thorazine last NOC, IM. ate dinner and spoke with EMERY cobb. generally no improvement, no change in presentation. 12/22: awake briefly this morning, endorsing depression. vague, unable to state preference for Tx. continue current mgmt. hearing scheduled for next sunday re ECT. 12/23 ck labs consider iv fluids get med clearance ect 12/24/2022 Of Thorazine discontinued has not been effective can lower blood pressure and someone already with periods of dehydration strongly would benefit from ECT trial 12/25: continue current mgmt. up briefly today to move rooms. ate 3 meals yesterday, reportedly. hearing tomorrow for ECT. 12/26: staring today, no responses. hearing held today, judgment pending. decrease ativan to 2 mg TID in anticipation of ECT. medical clearance and EKG ordered. 12/26: staring today, no responses. IV access lost, will give IM ativan until IV access regained. awaiting word from court on ECT. 12/27: medically cleared for ECT, court ordered ECT. start ECT tomorrow. case d/w david in detail. taper ativan to 4 mg today, may need flumazenil tomorrow prior to ECT. continue ativan taper over w/e. 12/29: ECT #1 completed, clear improvement in mental status and insight. continue ativan taper. ECT #2 on sunday. 12/30: took PO meds yesterday morning after ECT, refusing since. continue current mgmt. 12/31: continue ativan taper. awake and verbal today. not eating or taking meds PO. ECT #2 tomorrow. 01/01: missed morning ECT due to inability to gain IV access. U/S guided IV inserted, will go for anoon ECT. PMR, inert, lying in bed; awake, however, and able to exchange a few words. 01/02 yesterday he had a he has ECT in the evening. Slight improvement. We added a midline IV access sings we could not get an IV access on the previous ECT easily. ECT tomorrow AM. 01/03: ECT #3 completed this morning. remains more alert and responsive than prior, yet still very poor PO intake and refusing PO meds. continue current mgmt. 01/04: remains alert and interactive. still PMR, poor appetite. ECT scheduled for tomorrow. 01/05: ECT #4 completed, continues more alert and engageable than prior to start of ECT. still not doing ADLs, not eating/drinking adequately. ECT #5 on sunday. 01/06: ECT #5 Sunday. Improved (known to this process description writer from interaction over a month ago.). Continue current treatment plan. 01/07: Continue current management. 01/08: s/p ECT #5. improvements continue. trimmed gallegos, ate 3 meals yesterday, taking PO meds. ECT #6 . 01/09: informed SW that while catatonic had been hearing the voice of god telling him not to eat or he would go to hell. clinical presentation as per yesterday. ECT #6 tomorrow. concerned ECT is erasing [his] mind. 01/10: notably more social and visible in the milieu today. start zyprexa 5 at bedtime and increase prozac from 20 mg daily to 40 mg daily as of tomorrow. ECT #6 completed. 01/11: stably improved presentation. ECT #7 tomorrow. continue current mgmt. 01/12: ECT #7 completed without complication. stable gains. continue current mgmt. 01/13: Continue current regimen and plans 01/14: Continue current plans and regimen 01/15: Continue current regimen and plans 01/16: day by day marginal improvements. more ambulatory and social, now making discharge plans with SW. ECT #8 tomorrow. 01/17: for ECT #8 today. daily recovery continues. 01/18: for ECT #9 tomorrow. improving daily, today wearing street clothes for the first time this hospitalization. 01/19: ECT #9 today. planning to complete series of 12 as of next sunday, discharge to [facility] shortly thereafter. 01/21/2023: No changes, With ECT 10. Scheduled for tomorrow 01/22: completed ECT 10. no change in presentation. finish course through 12, then DC home to [facility]. Reason for continued inpatient stay Substantial Risk for: inability to function and rapid decompensation Time Spent With Patient Time: Total time managing care of this patient today ____ minutes.
[2023-01-22] MEDS: 0.9 % Sodium Chloride Flush 10 ML SYRINGE IVFLUSH ×2 (15:35→23:09)
[2023-01-22] MEDS: OLANZapine 5 MG TABLET PO (20:24)
[2023-01-23] MEDS: 0.9 % Sodium Chloride Flush 10 ML SYRINGE IVFLUSH ×3 (06:55→23:53)
[2023-01-23 08:30] VITALS: BP 119/68; PULSE 104; RESP 16; TEMP 36.2; O2SAT 97
[2023-01-23] MEDS: FLUoxetine HCl 20 MG CAPSULE 40 MG PO (08:47)
[2023-01-23] MEDS: Nicotine 7 MG PATCH.TD24 TRANSDERMA (08:48)
--- NOTE | 2023-01-23 13:30 | HO.PSYCHPN ---
Subjective Subjective Date of Service: 01/23/23 Reason For Visit: catatonia Interim History: no change in presentation. reports he is feeling well, no questions or concerns. ECT #11 tomorrow. per staff, pleasant. denies anx/dep. social. attending groups. TV. appears to be sleeping well. Mental Status Exam Mental Status Exam Narrative: improving self-care, dressed in street clothes. up and about the unit, engaging in more programming and social activities. cooperative. speech soft, nml amount, flattened prosody. thoughts linear and logical. affect constricted and hypo-intense. no SI/HI/AVH expressed. Insight and judgment improved. Diagnostics Vital Signs (24Hr): Vital Signs - 24 hr 01/22/23 19:50 01/23/23 08:30 Temperature 98 F 97.2 F Pulse Rate 104 H 104 H Respiratory Rate 18 16 Blood Pressure 128/74 119/68 Pulse Oximetry 97 97 Oxygen Delivery Method Room Air Room Air BMI result Body Mass Index 24.7 Labs 12/23/22 17:51 Medications Medications Current Medications Acetaminophen (Acetaminophen 325 Mg Tablet) 650 mg PO Q6H PRN PRN Reason: Headache/Pain Mild Scale (1-3) Last Admin: 01/18/23 17:50 Dose: 650 mg Al Hydroxide/Mg Hydroxide (Magnesium Hydrox/Alum Hydrox 30 Ml Oral.Susp) 30 ml PO Q6H PRN PRN Reason: Heartburn/Nausea Artificial Tears (Artificial Tears 15 Ml Drops) 2 drop EYE-BOTH Q4H PRN PRN Reason: Dry Eyes Last Admin: 12/02/22 14:19 Dose: 2 drop Benzocaine (Throat Lozenge, Medicated Lozenge) 1 lozenge MUCOUS MEM Q2H PRN PRN Reason: Sore Throat Last Admin: 12/29/22 12:23 Dose: 1 lozenge Fluoxetine HCl (Fluoxetine Hcl 20 Mg Capsule) 40 mg PO DAILY [facility] Last Admin: 01/23/23 08:47 Dose: 40 mg Heparin Sodium (Porcine) (Heparin Sodium,Porcine Flush 50 Units/5 Ml Syringe) 50 units IVFLUSH DAILY PRN PRN Reason: occlusion Hydroxyzine HCl (Hydroxyzine Hcl 25 Mg Tablet) 25 mg PO Q6H PRN PRN Reason: Anxiety Last Admin: 01/18/23 17:49 Dose: 25 mg Magnesium Hydroxide (Milk Of Magnesia 30 Ml Oral.Susp) 30 ml PO DAILY PRN PRN Reason: Constipation Nicotine (Nicotine 7 Mg Patch.Td24) 7 mg TRANSDERMA DAILY [facility] Last Admin: 01/23/23 08:48 Dose: 7 mg Nicotine Polacrilex (Nicotine Polacrilex Lozenge 2 Mg Lozenge) 2 mg BUCCAL Q2H PRN PRN Reason: nicotine withdrawal Last Admin: 01/14/23 16:13 Dose: 2 mg Olanzapine (Olanzapine 5 Mg Tablet) 5 mg PO BEDTIME [facility] Last Admin: 01/22/23 20:24 Dose: 5 mg Ondansetron HCl (Ondansetron Hcl 4 Mg/2 Ml Vial) 4 mg IVPUSH ONCE PRN PRN Reason: Nausea and Vomiting Sodium Chloride (0.9 % Sodium Chloride Flush 10 Ml Syringe) 10 ml IVFLUSH Q8H [facility] Last Admin: 01/23/23 06:55 Dose: 10 ml Trazodone HCl (Trazodone Hcl 50 Mg Tablet) 50 mg PO BEDTIME PRN PRN Reason: Insomnia Last Admin: 01/16/23 20:46 Dose: 50 mg Allergies Allergies Allergy/AdvReac Type Severity Reaction Status Date / Time No Known Allergies Allergy Verified 10/31/22 14:47 Assessment & Plan Assessment & Plan (1) Catatonia: Status: Acute Code(s): F06.1 - Catatonic disorder due to known physiological condition (2) Cocaine use disorder: Status: Acute Code(s): F14.10 - Cocaine abuse, uncomplicated (3) Depression: Qualifiers: Active/Remission status: currently active Depression Type: major depressive disorder Major depression episode severity: severe Major depression recurrence: unspecified whether recurrent Psychotic features: with psychotic features Qualified Code(s): F32.3 - Major depressive disorder, single episode, severe with psychotic features Status: Acute Code(s): F32.A - Depression, unspecified Plan 11/03: 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 11/04: pt refusing meds and not taking anything PO. nevertheless appears slightly improved from yesterday, more verbal with less latency of response. advised to take meds and fluids. 11/05: ate and drank some last night. refusing meds. no longer grossly catatonic. continue current mgmt. 11/06: no PO intake in past 24H. refusing meds. parnell warning, 3-day up . 11/07: no food, had some water last night. recheck BMP. completed commitment paperwork. refusing meds. 11/08: denies eating or drinking but yesterday's breakfast tray was empty on return. commitment filed. refusing meds. 11/09: continues without PO intake, not attending to ADLs. refusing meds. hearing scheduled for next . labs from yesterday not indicative of concerning dehydration. 11/10 continue tx. more talkative, although guarded. No overt delusional content reported. denies SI/HI. 11/11: will order CMP for tomorrow morning given uncertainty ref PO intake 11/13: increase in BUN and Cr due to dehydration 11/14: continue tx. refuses medications but unable to provide explanation as to why not show understanding in terms of effects of decrease oral intake on renal function. 11/15: unchanged from last week. intermittent meals, BUN mildly elevated. court tomorrow. 11/16: court deferred for BEHZAD. no change in presentation. place on 1:1 for observation of PO intake. lying all day in bed, PMR, with shades drawn, for a darkened room. refusing medications. 11/17: DC olanzapine. offer SSRI. eating and drinking this morning, after having been put on 1:1. continue current mgmt. commitment hearing likely next . 11/18: refusing to look at or speak with MD. clearly ate and drank more yesterday, up and out of room more. nevertheless, spends vast majority of his time lying in bed in the dark. refusing meds. 11/19: ate more yesterday and last night. DC 1:1. appearing catatonic today, no eye blink staring at ceiling not responding. 11/20: moderate PO intake yesterday. appearing more catatonic today. continue to offer meds. 11/21: catatonic. no report on sleep or PO intake as pt is off 1:1. continue to offer meds. 11/22: catatonic. labs reassuring. court tomorrow. 11/23: catatonic. committed and ordered meds in court. 11/24: start ativan 2 mg TID with IM back-up for catatonia. plan to start neuroleptics and anti-depressants once catatonia improved. 11/25: decrease ativan to 1mg tid as he had no response to 2 mg and might be experiencing sedation from it 11/26: More alert on lower ativan dose but remains non-verbal and lying in bed 11/27 increase ativan back to 2mg po TID back up IM. 11/28: T/C gaining IV access to facilitate delivery of ativan; plan to increase to QID dosing. remains catatonic. case d/w nursing administration and medical screenerdirector digital catalogue. 11/29: gain IV access today, start ativan 2 mg IV QID. was out of bed, eating and speaking yesterday evening. 11/30: 1:1 as he removed IV access, apparently. was up in kitchen getting food on evening shift. continue current mgmt. 12/01: up twice in the past 24H, ate some, swore that lights in his room had been turned on. T/C adding valium 2 mg TID IV (per court order, maximum of 8 mg ativan may be given per day) and/or antipsychotic to regimen. case D/W david. 12/02: Check comprehensive metabolic labs in AM. Continue current management. 12/03: Improved post IM dose of Zyprexa last night. Ate better. More communicative. Continue current plan of care. 12/04: some improvement over w/e. increase IM zyprexa t HS to 5 mg each. continue current mgmt. 12/05: continue current mgmt. up several times yesterday, had conversation with reza nurse, observed eating dinner. 12/06: less active yesterday. did not receive IM zyprexa last night. continue current mgmt. 12/07: received zyprexa IM last night. up for breakfast this morning, exchanged some words with MD for first time in weeks. indicated he has a depressed mood. not opposed to anti-depressant. will start prozac liquid daily. 12/08: lying in bed, not responsive. several interactions with staff yesterday, limited and often non-verbal. refused PO prozac. continue current mgmt. 12/09: still catatonic. 12/10 still catatonic 12/11/22 Patient intermittently responsive often refusing p.o. meds may require ECT 12/12/2022 Patient remains mostly electively mute intermittently catatonic with some periods of verbal discourse 12/13/22 more verbal hx of recurrent depression still gets iv ativan refuses po meds 12 14 22 Continue Ativan and intravenous is encouraged fluoxetine continue olanzapine 5 mg patient does not appear to be psychotic would encourage ECT 12/15/2022 Continue plan of care labs reviewed sodium creatinine within normal limits 12/16: Continue current regimen and plans. Switch Zyprexa to a.m. use. 12/17: Continue current regimen and plans. Decrease Ativan by 2 mg and increase Zyprexa by 10 mg 12/18: continue current regimen. no change in catatonic presentation. 12/19: return ativan to 2 mg QID and zyprexa to 10 mg QHS only. 12/20: due to possibility of akathisia from zyprexa, will try lower potency anti-psychotic, thorazine. DC zyprexa and start thorazine 100 mg PO QHS with 50 mg IM if refuses PO. 12/21: received thorazine last NOC, IM. ate dinner and spoke with EMERY cobb. generally no improvement, no change in presentation. 12/22: awake briefly this morning, endorsing depression. vague, unable to state preference for Tx. continue current mgmt. hearing scheduled for next sunday re ECT. 12/23 ck labs consider iv fluids get med clearance ect 12/24/2022 Of Thorazine discontinued has not been effective can lower blood pressure and someone already with periods of dehydration strongly would benefit from ECT trial 12/25: continue current mgmt. up briefly today to move rooms. ate 3 meals yesterday, reportedly. hearing tomorrow for ECT. 12/26: staring today, no responses. hearing held today, judgment pending. decrease ativan to 2 mg TID in anticipation of ECT. medical clearance and EKG ordered. 12/26: staring today, no responses. IV access lost, will give IM ativan until IV access regained. awaiting word from court on ECT. 12/27: medically cleared for ECT, court ordered ECT. start ECT tomorrow. case d/w david in detail. taper ativan to 4 mg today, may need flumazenil tomorrow prior to ECT. continue ativan taper over w/e. 12/29: ECT #1 completed, clear improvement in mental status and insight. continue ativan taper. ECT #2 on sunday. 12/30: took PO meds yesterday morning after ECT, refusing since. continue current mgmt. 12/31: continue ativan taper. awake and verbal today. not eating or taking meds PO. ECT #2 tomorrow. 01/01: missed morning ECT due to inability to gain IV access. U/S guided IV inserted, will go for anoon ECT. PMR, inert, lying in bed; awake, however, and able to exchange a few words. 01/02 yesterday he had a he has ECT in the evening. Slight improvement. We added a midline IV access sings we could not get an IV access on the previous ECT easily. ECT tomorrow AM. 01/03: ECT #3 completed this morning. remains more alert and responsive than prior, yet still very poor PO intake and refusing PO meds. continue current mgmt. 01/04: remains alert and interactive. still PMR, poor appetite. ECT scheduled for tomorrow. 01/05: ECT #4 completed, continues more alert and engageable than prior to start of ECT. still not doing ADLs, not eating/drinking adequately. ECT #5 on sunday. 01/06: ECT #5 Sunday. Improved (known to this functional tester typewriters from interaction over a month ago.). Continue current treatment plan. 01/07: Continue current management. 01/08: s/p ECT #5. improvements continue. trimmed gallegos, ate 3 meals yesterday, taking PO meds. ECT #6 . 01/09: informed SW that while catatonic had been hearing the voice of god telling him not to eat or he would go to hell. clinical presentation as per yesterday. ECT #6 tomorrow. concerned ECT is erasing [his] mind. 01/10: notably more social and visible in the milieu today. start zyprexa 5 at bedtime and increase prozac from 20 mg daily to 40 mg daily as of tomorrow. ECT #6 completed. 01/11: stably improved presentation. ECT #7 tomorrow. continue current mgmt. 01/12: ECT #7 completed without complication. stable gains. continue current mgmt. 01/13: Continue current regimen and plans 01/14: Continue current plans and regimen 01/15: Continue current regimen and plans 01/16: day by day marginal improvements. more ambulatory and social, now making discharge plans with . ECT #8 tomorrow. 01/17: for ECT #8 today. daily recovery continues. 01/18: for ECT #9 tomorrow. improving daily, today wearing street clothes for the first time this hospitalization. 01/19: ECT #9 today. planning to complete series of 12 as of next sunday, discharge to [facility] shortly thereafter. 01/21/2023: No changes, With ECT 10. Scheduled for tomorrow 01/22: completed ECT 10. no change in presentation. finish course through , then DC home to [place]. 02/01: stable. ECT #11 tomorrow. Reason for continued inpatient stay Substantial Risk for: rapid decompensation Time Spent With Patient Time: Total time managing care of this patient today _25___ minutes.
[2023-01-23] MEDS: OLANZapine 5 MG TABLET PO (20:07)
[2023-01-23 20:11] VITALS: BP 145/66; PULSE 114; RESP 18; TEMP 36.9; O2SAT 95
[2023-01-23] MEDS: Heparin Sodium,Porcine Flush 50 UNITS/5 ML SYRINGE IVFLUSH (23:53)
[2023-01-24] VITALS (9 sets, daily range): BP systolic 106–146; BP diastolic 63–97; PULSE 8–101; RESP 16–18; TEMP 36.4–37.3; O2SAT 93–99
--- NOTE | 2023-01-24 00:09 | PC.NURSE ---
At 2315 attempted to flush right midline with normal saline. This nurse could not get a return and flush did not advance. Aby Silva attempted same procedure and received the same result. Called Daylin Lino (nursing cytotechnologist supervisor) for assistance. Was able to flush line with heparin. Attempted to flush afterwards, and it was very hard to get the saline through. Daylin then changed the dressing around the site and reattempted to flush. At this time was not able to flush with the normal saline. ECT staff will be notified in the am prior to procedure by this nurse.
--- NOTE | 2023-01-24 06:55 | P.CONAN_ITS ---
[facility] Active Problems Active Problems: All Active Problems (Updated 01/19/23 @ 14:07 by Wu Fraga) Catatonia (Acute) Cocaine use disorder, mild, in early remission (Acute) Mood disorder (Acute) Cocaine use disorder (Acute) Depression (Acute) Anorexia (Acute) Past Medical History Medical History Cocaine use disorder Family History Family history of problems with anesthesia: No Surgical History History of Problems with Anesthesia: No Social History Social History Household Members: None Housing: Other Housing Other:: TSS Unable to assess alcohol history related to: Refusing to respond Patient Tobacco Use Status: Never used Tobacco Second Hand Smoke Exposure: No Use of substances other than those prescribed or required for medical reasons: No Currently Displaying Signs/Symptoms of Drug Intoxication Withdrawal: No Have you been hit, kicked, punched, or otherwise hurt by someone within the past year? If so, by whom?: No Do you feel safe in your current relationship?: No Current Relationship Is there a partner from a previous relationship who is making you feel unsafe now?: No Are you made to feel afraid or neglected: No Are you DNR?: No Advance Directives: No Advance Directives Information Provided: Yes Advance Directives on File: No Do you have thoughts of harming others: None Do you have a plan to hurt others: No Plan Recently lost weight without trying: No Nutrition Risks: No Nutritional Risk Poor oral hygiene: No service: No Sexual orientation: Decline to Answer Meds Allergies Allergy/AdvReac Type Severity Reaction Status Date / Time No Known Allergies Allergy Verified 10/31/22 14:47 Active Medications: Current Medications Acetaminophen (Acetaminophen 325 Mg Tablet) 650 mg PO Q6H PRN PRN Reason: Headache/Pain Mild Scale (1-3) Last Admin: 01/18/23 17:50 Dose: 650 mg Al Hydroxide/Mg Hydroxide (Magnesium Hydrox/Alum Hydrox 30 Ml Oral.Susp) 30 ml PO Q6H PRN PRN Reason: Heartburn/Nausea Artificial Tears (Artificial Tears 15 Ml Drops) 2 drop EYE-BOTH Q4H PRN PRN Reason: Dry Eyes Last Admin: 12/02/22 14:19 Dose: 2 drop Benzocaine (Throat Lozenge, Medicated Lozenge) 1 lozenge MUCOUS MEM Q2H PRN PRN Reason: Sore Throat Last Admin: 12/29/22 12:23 Dose: 1 lozenge Fluoxetine HCl (Fluoxetine Hcl 20 Mg Capsule) 40 mg PO DAILY [facility] Last Admin: 01/23/23 08:47 Dose: 40 mg Heparin Sodium (Porcine) (Heparin Sodium,Porcine Flush 50 Units/5 Ml Syringe) 50 units IVFLUSH DAILY PRN PRN Reason: occlusion Last Admin: 01/23/23 23:53 Dose: 50 units Hydroxyzine HCl (Hydroxyzine Hcl 25 Mg Tablet) 25 mg PO Q6H PRN PRN Reason: Anxiety Last Admin: 01/18/23 17:49 Dose: 25 mg Magnesium Hydroxide (Milk Of Magnesia 30 Ml Oral.Susp) 30 ml PO DAILY PRN PRN Reason: Constipation Nicotine (Nicotine 7 Mg Patch.Td24) 7 mg TRANSDERMA DAILY [facility] Last Admin: 01/23/23 08:48 Dose: 7 mg Nicotine Polacrilex (Nicotine Polacrilex Lozenge 2 Mg Lozenge) 2 mg BUCCAL Q2H PRN PRN Reason: nicotine withdrawal Last Admin: 01/14/23 16:13 Dose: 2 mg Olanzapine (Olanzapine 5 Mg Tablet) 5 mg PO BEDTIME [facility] Last Admin: 01/23/23 20:07 Dose: 5 mg Ondansetron HCl (Ondansetron Hcl 4 Mg/2 Ml Vial) 4 mg IVPUSH ONCE PRN PRN Reason: Nausea and Vomiting Sodium Chloride (0.9 % Sodium Chloride Flush 10 Ml Syringe) 10 ml IVFLUSH Q8H [facility] Last Admin: 01/23/23 23:53 Dose: 10 ml Trazodone HCl (Trazodone Hcl 50 Mg Tablet) 50 mg PO BEDTIME PRN PRN Reason: Insomnia Last Admin: 01/16/23 20:46 Dose: 50 mg Home Medications Medication Instructions Recorded Confirmed Last Taken Type No Known Home Meds 10/31/22 11/04/22 Unknown History Exam Exam Date and Time: January 24, 2023 0655 Height,Weight and Vital Signs: Height 6 ft Weight 82.6 kg Last Vital Signs Temp 99.1 F 01/24/23 06:53 Pulse 89 01/24/23 06:53 Resp 16 01/24/23 06:53 BP 142/91 H 01/24/23 06:53 Pulse Ox 99 01/24/23 06:53 O2 Del Method Room Air 01/24/23 06:53 O2 Flow Rate 2 01/22/23 07:55 Pertinent Lab Results Pertinent Lab Results: Laboratory Tests 11/03/22 11/05/22 11/08/22 15:48 12:58 15:07 Sodium 142 140 Potassium 4.1 D 4.1 Chloride 108 105 Carbon Dioxide 26 28 Anion Gap 12 11 L BUN 23 H 15 Creatinine 0.73 0.83 0.72 Estim Creat Clear Calc TNP TNP TNP Estimated GFR > 60 > 60 > 60 Random Glucose 97 95 Calcium 9.1 9.7 D Total Bilirubin AST ALT Alkaline Phosphatase Total Protein Albumin 11/13/22 11/16/22 11/22/22 08:00 08:11 11:55 Sodium 140 138 137 Potassium 4.8 4.9 4.5 Chloride 103 106 106 Carbon Dioxide 22 22 25 Anion Gap 20 15 11 L BUN 25 H 16 16 Creatinine 1.07 0.97 0.86 Estim Creat Clear Calc TNP TNP TNP Estimated GFR > 60 > 60 > 60 Random Glucose 73 89 93 Calcium 10.0 9.6 9.9 Total Bilirubin 0.9 0.9 AST 21 22 ALT 16 15 Alkaline Phosphatase 62 59 Total Protein 7.1 6.8 Albumin 4.0 3.6 12/03/22 12/15/22 12/23/22 07:45 09:53 17:51 Sodium 139 139 139 Potassium 4.8 4.3 4.2 Chloride 107 106 104 Carbon Dioxide 24 23 23 Anion Gap 13 14 16 BUN 13 11 11 Creatinine 0.73 0.74 0.77 Estim Creat Clear Calc TNP TNP TNP Estimated GFR > 60 > 60 > 60 Random Glucose 103 86 79 Calcium 9.3 D 9.3 9.8 Total Bilirubin 0.5 0.7 0.8 AST 25 18 24 ALT 20 16 16 Alkaline Phosphatase 47 55 68 Total Protein 6.4 L 6.5 7.1 Albumin 3.5 3.6 4.0 Airway Mallampati Class: II TM Dist: >3cm Neck ROM: Full Heart: rrr Lungs: cta Assessment and Plan Assessment Anesthesia Assessment: Anesthesia Plan Discussed and Chart Reviewed Final Anesthetic Review Family History of Problems with Anesthesia: No History of Problems with Anesthesia: No NPO: Yes ASA Class: III Final Preanesthetic Review: No Changes in Pt Med Stat, Meds/Allgs Chart Reviewed and Consent Obtained/Reviewed Patient Risk: Intermediate Procedure Risk: Intermediate Anesthetic Plan Anesthetic Plan: GA Disposition: Standard PACU
--- NOTE | 2023-01-24 07:56 | MHC.SHP ---
Pre-Procedural Eval Section A Date of Service: 01/24/23 The patient is an INPATIENT: Yes Changes since office visit: Yes Patient answered all questions; No Cold of Flu in the past 2 weeks, No New Medical Problems and No Changes in Medication The History & Physical has been completed within 30 days and I have reviewed it.: Yes Section B Chief Complaint: catatonia Allergies: Allergies Allergy/AdvReac Type Severity Reaction Status Date / Time No Known Allergies Allergy Verified 10/31/22 14:47 Plan I have reviewed the history and physical and performed a pertinent physical examination on my patient. No changes have occurred unless specified. Time Spent With Patient Time: Total time managing care of this patient today ____ minutes.
--- NOTE | 2023-01-24 07:57 | HO.ECTPROC ---
ECT Procedure Note Diagnosis/Treatment Date of Service: 01/24/23 Diagnosis: Catatonia Previous ECT Date: 01/22/23 Current Treatment Number: 11 Treatment: Series Interval Clinical Notes: Pt much improved no c/o side effects no hallucinations mood stable Time: Total time managing care of this patient today ____ minutes. ECT Settings Device: THYMATRON DGx Electrode Placement: Right Unilateral Program/Pulse Width: 0.50 Energy Percent: 100 Seizure Duration By EEG (in seconds): 37 By Motor Observation (in seconds): 0 Medications Administration General Anesthetic: Etomidate (16) Muscle Relaxant: Succinylcholine (100) Ancillary Medications Analgesics: Torodol - Pre ECT (30) Anti-emetics: Zofran - Pre ECT (4) Miscillaneous Medications: Midazolam Airway Management Airway Management: Bag Mask Ventilation Treatment Recommendations No Changes Recommended: No change Pt Tolerated Procedure w/o Issue: Yes
[2023-01-24] MEDS: Nicotine 7 MG PATCH.TD24 TRANSDERMA (09:43)
[2023-01-24] MEDS: FLUoxetine HCl 20 MG CAPSULE 40 MG PO (09:44)
--- NOTE | 2023-01-24 12:13 | HO.PSYCHPN ---
Subjective Subjective Date of Service: 01/24/23 Reason For Visit: catatonia Interim History: calm, cooperative, no change in presentation. ECT went well today. no longer has KWON or cognitive complaints. planning to DC to intermediate. per staff, mood normal. denies SI/HI/AVH. eating and sleeping well. Mental Status Exam Mental Status Exam Narrative: adequate self-care, dressed in street clothes. up and about the unit, engaging in programming and social activities. cooperative. speech soft, nml amount, flattened prosody. thoughts linear and logical. affect constricted and hypo-intense. no SI/HI/AVH expressed. Insight and judgment fair. Diagnostics Vital Signs (24Hr): Vital Signs - 24 hr 01/23/23 20:11 01/24/23 05:50 01/24/23 06:53 Temperature 98.4 F 97.5 F 99.1 F Pulse Rate 114 H 99 89 Respiratory Rate 18 16 16 Blood Pressure 145/66 H 132/70 142/91 H Pulse Oximetry 95 96 99 Oxygen Delivery Method Room Air Room Air Oxygen Flow Rate 01/24/23 07:59 01/24/23 08:04 01/24/23 08:09 Temperature 98.7 F Pulse Rate 101 H 83 94 Respiratory Rate 16 18 18 Blood Pressure 146/97 H 116/63 106/67 Pulse Oximetry 93 93 96 Oxygen Delivery Method Nasal Cannula Oxygen Flow Rate 3 01/24/23 08:14 01/24/23 08:30 01/24/23 10:29 Temperature 97.8 F 99.0 F Pulse Rate 98 99 8 L Respiratory Rate 18 18 16 Blood Pressure 106/67 116/76 126/76 Pulse Oximetry 96 94 99 Oxygen Delivery Method Room Air Room Air Oxygen Flow Rate BMI result Body Mass Index 24.7 Labs 12/23/22 17:51 Medications Medications Current Medications Acetaminophen (Acetaminophen 325 Mg Tablet) 650 mg PO Q6H PRN PRN Reason: Headache/Pain Mild Scale (1-3) Last Admin: 01/18/23 17:50 Dose: 650 mg Al Hydroxide/Mg Hydroxide (Magnesium Hydrox/Alum Hydrox 30 Ml Oral.Susp) 30 ml PO Q6H PRN PRN Reason: Heartburn/Nausea Artificial Tears (Artificial Tears 15 Ml Drops) 2 drop EYE-BOTH Q4H PRN PRN Reason: Dry Eyes Last Admin: 12/02/22 14:19 Dose: 2 drop Benzocaine (Throat Lozenge, Medicated Lozenge) 1 lozenge MUCOUS MEM Q2H PRN PRN Reason: Sore Throat Last Admin: 12/29/22 12:23 Dose: 1 lozenge Fluoxetine HCl (Fluoxetine Hcl 20 Mg Capsule) 40 mg PO DAILY [facility] Last Admin: 01/24/23 09:44 Dose: 40 mg Heparin Sodium (Porcine) (Heparin Sodium,Porcine Flush 50 Units/5 Ml Syringe) 50 units IVFLUSH DAILY PRN PRN Reason: occlusion Last Admin: 01/23/23 23:53 Dose: 50 units Hydroxyzine HCl (Hydroxyzine Hcl 25 Mg Tablet) 25 mg PO Q6H PRN PRN Reason: Anxiety Last Admin: 01/18/23 17:49 Dose: 25 mg Magnesium Hydroxide (Milk Of Magnesia 30 Ml Oral.Susp) 30 ml PO DAILY PRN PRN Reason: Constipation Nicotine (Nicotine 7 Mg Patch.Td24) 7 mg TRANSDERMA DAILY [facility] Last Admin: 01/24/23 09:43 Dose: 7 mg Nicotine Polacrilex (Nicotine Polacrilex Lozenge 2 Mg Lozenge) 2 mg BUCCAL Q2H PRN PRN Reason: nicotine withdrawal Last Admin: 01/14/23 16:13 Dose: 2 mg Olanzapine (Olanzapine 5 Mg Tablet) 5 mg PO BEDTIME [facility] Last Admin: 01/23/23 20:07 Dose: 5 mg Ondansetron HCl (Ondansetron Hcl 4 Mg/2 Ml Vial) 4 mg IVPUSH ONCE PRN PRN Reason: Nausea and Vomiting Sodium Chloride (0.9 % Sodium Chloride Flush 10 Ml Syringe) 10 ml IVFLUSH Q8H [facility] Last Admin: 01/24/23 09:14 Dose: Not Given Trazodone HCl (Trazodone Hcl 50 Mg Tablet) 50 mg PO BEDTIME PRN PRN Reason: Insomnia Last Admin: 01/16/23 20:46 Dose: 50 mg Allergies Allergies Allergy/AdvReac Type Severity Reaction Status Date / Time No Known Allergies Allergy Verified 10/31/22 14:47 Assessment & Plan Assessment & Plan (1) Catatonia: Status: Acute Code(s): F06.1 - Catatonic disorder due to known physiological condition (2) Cocaine use disorder: Status: Acute Code(s): F14.10 - Cocaine abuse, uncomplicated (3) Depression: Qualifiers: Active/Remission status: currently active Depression Type: major depressive disorder Major depression episode severity: severe Major depression recurrence: unspecified whether recurrent Psychotic features: with psychotic features Qualified Code(s): F32.3 - Major depressive disorder, single episode, severe with psychotic features Status: Acute Code(s): F32.A - Depression, unspecified Plan 11/03: 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 11/04: pt refusing meds and not taking anything PO. nevertheless appears slightly improved from yesterday, more verbal with less latency of response. advised to take meds and fluids. 11/05: ate and drank some last night. refusing meds. no longer grossly catatonic. continue current mgmt. 11/06: no PO intake in past 24H. refusing meds. parnell warning, 3-day up . 11/07: no food, had some water last night. recheck BMP. completed commitment paperwork. refusing meds. 11/08: denies eating or drinking but yesterday's breakfast tray was empty on return. commitment filed. refusing meds. 11/09: continues without PO intake, not attending to ADLs. refusing meds. hearing scheduled for next . labs from yesterday not indicative of concerning dehydration. 11/10 continue tx. more talkative, although guarded. No overt delusional content reported. denies SI/HI. 11/11: will order CMP for tomorrow morning given uncertainty ref PO intake 11/13: increase in BUN and Cr due to dehydration 11/14: continue tx. refuses medications but unable to provide explanation as to why not show understanding in terms of effects of decrease oral intake on renal function. 11/15: unchanged from last week. intermittent meals, BUN mildly elevated. court tomorrow. 11/16: court deferred for BEHZAD. no change in presentation. place on 1:1 for observation of PO intake. lying all day in bed, PMR, with shades drawn, for a darkened room. refusing medications. 11/17: DC olanzapine. offer SSRI. eating and drinking this morning, after having been put on 1:1. continue current mgmt. commitment hearing likely next . 11/18: refusing to look at or speak with MD. clearly ate and drank more yesterday, up and out of room more. nevertheless, spends vast majority of his time lying in bed in the dark. refusing meds. 11/19: ate more yesterday and last night. DC 1:1. appearing catatonic today, no eye blink staring at ceiling not responding. 11/20: moderate PO intake yesterday. appearing more catatonic today. continue to offer meds. 11/21: catatonic. no report on sleep or PO intake as pt is off 1:1. continue to offer meds. 11/22: catatonic. labs reassuring. court tomorrow. 11/23: catatonic. committed and ordered meds in court. 11/24: start ativan 2 mg TID with IM back-up for catatonia. plan to start neuroleptics and anti-depressants once catatonia improved. 11/25: decrease ativan to 1mg tid as he had no response to 2 mg and might be experiencing sedation from it 11/26: More alert on lower ativan dose but remains non-verbal and lying in bed 11/27 increase ativan back to 2mg po TID back up IM. 11/28: T/C gaining IV access to facilitate delivery of ativan; plan to increase to QID dosing. remains catatonic. case d/w nursing administration and medical records supervisordivisional human resources director. 11/29: gain IV access today, start ativan 2 mg IV QID. was out of bed, eating and speaking yesterday evening. 11/30: 1:1 as he removed IV access, apparently. was up in kitchen getting food on evening shift. continue current mgmt. 12/01: up twice in the past 24H, ate some, swore that lights in his room had been turned on. T/C adding valium 2 mg TID IV (per court order, maximum of 8 mg ativan may be given per day) and/or antipsychotic to regimen. case D/W david. 12/02: Check comprehensive metabolic labs in AM. Continue current management. 12/03: Improved post IM dose of Zyprexa last night. Ate better. More communicative. Continue current plan of care. 12/04: some improvement over w/e. increase IM zyprexa t HS to 5 mg each. continue current mgmt. 12/05: continue current mgmt. up several times yesterday, had conversation with reza nurse, observed eating dinner. 12/06: less active yesterday. did not receive IM zyprexa last night. continue current mgmt. 12/07: received zyprexa IM last night. up for breakfast this morning, exchanged some words with MD for first time in weeks. indicated he has a depressed mood. not opposed to anti-depressant. will start prozac liquid daily. 12/08: lying in bed, not responsive. several interactions with staff yesterday, limited and often non-verbal. refused PO prozac. continue current mgmt. 12/09: still catatonic. 12/10 still catatonic 12/11/22 Patient intermittently responsive often refusing p.o. meds may require ECT 12/12/2022 Patient remains mostly electively mute intermittently catatonic with some periods of verbal discourse 12/13/22 more verbal hx of recurrent depression still gets iv ativan refuses po meds 12 14 22 Continue Ativan and intravenous is encouraged fluoxetine continue olanzapine 5 mg patient does not appear to be psychotic would encourage ECT 12/15/2022 Continue plan of care labs reviewed sodium creatinine within normal limits 12/16: Continue current regimen and plans. Switch Zyprexa to a.m. use. 12/17: Continue current regimen and plans. Decrease Ativan by 2 mg and increase Zyprexa by 10 mg 12/18: continue current regimen. no change in catatonic presentation. 12/19: return ativan to 2 mg QID and zyprexa to 10 mg QHS only. 12/20: due to possibility of akathisia from zyprexa, will try lower potency anti-psychotic, thorazine. DC zyprexa and start thorazine 100 mg PO QHS with 50 mg IM if refuses PO. 12/21: received thorazine last NOC, IM. ate dinner and spoke with RN reza. generally no improvement, no change in presentation. 12/22: awake briefly this morning, endorsing depression. vague, unable to state preference for Tx. continue current mgmt. hearing scheduled for next sunday re ECT. 12/23 ck labs consider iv fluids get med clearance ect 12/24/2022 Of Thorazine discontinued has not been effective can lower blood pressure and someone already with periods of dehydration strongly would benefit from ECT trial 12/25: continue current mgmt. up briefly today to move rooms. ate 3 meals yesterday, reportedly. hearing tomorrow for ECT. 12/26: staring today, no responses. hearing held today, judgment pending. decrease ativan to 2 mg TID in anticipation of ECT. medical clearance and EKG ordered. 12/26: staring today, no responses. IV access lost, will give IM ativan until IV access regained. awaiting word from court on ECT. 12/27: medically cleared for ECT, court ordered ECT. start ECT tomorrow. case d/w david in detail. taper ativan to 4 mg today, may need flumazenil tomorrow prior to ECT. continue ativan taper over w/e. 12/29: ECT #1 completed, clear improvement in mental status and insight. continue ativan taper. ECT #2 on sunday. 12/30: took PO meds yesterday morning after ECT, refusing since. continue current mgmt. 12/31: continue ativan taper. awake and verbal today. not eating or taking meds PO. ECT #2 tomorrow. 01/01: missed morning ECT due to inability to gain IV access. U/S guided IV inserted, will go for anoon ECT. PMR, inert, lying in bed; awake, however, and able to exchange a few words. 01/02 yesterday he had a he has ECT in the evening. Slight improvement. We added a midline IV access sings we could not get an IV access on the previous ECT easily. ECT tomorrow AM. 01/03: ECT #3 completed this morning. remains more alert and responsive than prior, yet still very poor PO intake and refusing PO meds. continue current mgmt. 01/04: remains alert and interactive. still PMR, poor appetite. ECT scheduled for tomorrow. 01/05: ECT #4 completed, continues more alert and engageable than prior to start of ECT. still not doing ADLs, not eating/drinking adequately. ECT #5 on sunday. 01/06: ECT #5 Sunday. Improved (known to this web content writer from interaction over a month ago.). Continue current treatment plan. 01/07: Continue current management. 01/08: s/p ECT #5. improvements continue. trimmed gallegos, ate 3 meals yesterday, taking PO meds. ECT #6 . 01/09: informed SW that while catatonic had been hearing the voice of god telling him not to eat or he would go to hell. clinical presentation as per yesterday. ECT #6 tomorrow. concerned ECT is erasing [his] mind. 01/10: notably more social and visible in the milieu today. start zyprexa 5 at bedtime and increase prozac from 20 mg daily to 40 mg daily as of tomorrow. ECT #6 completed. 01/11: stably improved presentation. ECT #7 tomorrow. continue current mgmt. 01/12: ECT #7 completed without complication. stable gains. continue current mgmt. 01/13: Continue current regimen and plans 01/14: Continue current plans and regimen 01/15: Continue current regimen and plans 01/16: day by day marginal improvements. more ambulatory and social, now making discharge plans with SW. ECT #8 tomorrow. 01/17: for ECT #8 today. daily recovery continues. 01/18: for ECT #9 tomorrow. improving daily, today wearing street clothes for the first time this hospitalization. 01/19: ECT #9 today. planning to complete series of 12 as of next sunday, discharge to [facility] shortly thereafter. 01/21/2023: No changes, With ECT 10. Scheduled for tomorrow 01/22: completed ECT 10. no change in presentation. finish course through 12, then DC home to [place]. 01/23: stable. ECT #11 tomorrow. 01/24: ECT #11 completed without incident. no side effects from ECT. mood improved. planning to DC to intermediate. Reason for continued inpatient stay Substantial Risk for: inability to function and rapid decompensation Time Spent With Patient Time: Total time managing care of this patient today __25__ minutes.
[2023-01-24] MEDS: 0.9 % Sodium Chloride Flush 10 ML SYRINGE IVFLUSH (15:38)
[2023-01-24] MEDS: OLANZapine 5 MG TABLET PO (20:51)
--- NOTE | 2023-01-24 23:28 | PC.NURSE ---
Attempted to flush right midline on [place]. Normal Saline flush would not advance on attempt. Tried to use Heparin flush, would not advance. Asked [facility] Superintendent (Shireen) to try, would not advance for her. Will notify in am.
[2023-01-25 07:00] VITALS: BMI 24.7
[2023-01-25 08:01] VITALS: BP 132/84; PULSE 96; RESP 17; TEMP 36.8; O2SAT 96
[2023-01-25] MEDS: FLUoxetine HCl 20 MG CAPSULE 40 MG PO (08:15)
[2023-01-25] MEDS: Nicotine 7 MG PATCH.TD24 TRANSDERMA (08:15)
[2023-01-25] MEDS: 0.9 % Sodium Chloride Flush 10 ML SYRINGE IVFLUSH ×3 (08:16→20:05)
--- NOTE | 2023-01-25 12:30 | HO.PSYCHPN ---
Subjective Subjective Date of Service: 01/25/23 Reason For Visit: catatonia Interim History: calm, cooperative, pleasant. planning to [place] sunday, as no transport from family is forthcoming over the weekend. final ECT tomorrow. c/o poor sleep last 2 nights, doesn't know why. no other questions, concerns, or complaints. per staff, social, attending groups, safe. eating. anxiety 3. no depression. appears to have slept well overnight. Mental Status Exam Mental Status Exam Narrative: adequate self-care, dressed in street clothes. up and about the unit, engaging in programming and social activities. cooperative. speech soft, nml amount, flattened prosody. thoughts linear and logical. affect constricted and hypo-intense. no SI/HI/AVH expressed. Insight and judgment fair. Diagnostics Vital Signs (24Hr): Vital Signs - 24 hr 01/24/23 18:00 01/25/23 08:01 Temperature 98 F 98.2 F Pulse Rate 88 96 Respiratory Rate 16 17 Blood Pressure 121/85 132/84 Pulse Oximetry 99 96 Oxygen Delivery Method Room Air Room Air BMI result Body Mass Index 24.7 Labs 12/23/22 17:51 Medications Medications Current Medications Acetaminophen (Acetaminophen 325 Mg Tablet) 650 mg PO Q6H PRN PRN Reason: Headache/Pain Mild Scale (1-3) Last Admin: 01/18/23 17:50 Dose: 650 mg Al Hydroxide/Mg Hydroxide (Magnesium Hydrox/Alum Hydrox 30 Ml Oral.Susp) 30 ml PO Q6H PRN PRN Reason: Heartburn/Nausea Artificial Tears (Artificial Tears 15 Ml Drops) 2 drop EYE-BOTH Q4H PRN PRN Reason: Dry Eyes Last Admin: 12/02/22 14:19 Dose: 2 drop Benzocaine (Throat Lozenge, Medicated Lozenge) 1 lozenge MUCOUS MEM Q2H PRN PRN Reason: Sore Throat Last Admin: 12/29/22 12:23 Dose: 1 lozenge Fluoxetine HCl (Fluoxetine Hcl 20 Mg Capsule) 40 mg PO DAILY GAB[facility]EL Last Admin: 01/25/23 08:15 Dose: 40 mg Heparin Sodium (Porcine) (Heparin Sodium,Porcine Flush 50 Units/5 Ml Syringe) 50 units IVFLUSH DAILY PRN PRN Reason: occlusion Last Admin: 01/23/23 23:53 Dose: 50 units Hydroxyzine HCl (Hydroxyzine Hcl 25 Mg Tablet) 25 mg PO Q6H PRN PRN Reason: Anxiety Last Admin: 01/18/23 17:49 Dose: 25 mg Magnesium Hydroxide (Milk Of Magnesia 30 Ml Oral.Susp) 30 ml PO DAILY PRN PRN Reason: Constipation Nicotine (Nicotine 7 Mg Patch.Td24) 7 mg TRANSDERMA DAILY [facility] Last Admin: 01/25/23 08:15 Dose: 7 mg Nicotine Polacrilex (Nicotine Polacrilex Lozenge 2 Mg Lozenge) 2 mg BUCCAL Q2H PRN PRN Reason: nicotine withdrawal Last Admin: 01/14/23 16:13 Dose: 2 mg Olanzapine (Olanzapine 5 Mg Tablet) 5 mg PO BEDTIME [facility]EL Last Admin: 01/24/23 20:51 Dose: 5 mg Ondansetron HCl (Ondansetron Hcl 4 Mg/2 Ml Vial) 4 mg IVPUSH ONCE PRN PRN Reason: Nausea and Vomiting Sodium Chloride (0.9 % Sodium Chloride Flush 10 Ml Syringe) 10 ml IVFLUSH Q8H [facility] Last Admin: 01/25/23 08:16 Dose: 10 ml Trazodone HCl (Trazodone Hcl 50 Mg Tablet) 50 mg PO BEDTIME PRN PRN Reason: Insomnia Last Admin: 01/16/23 20:46 Dose: 50 mg Allergies Allergies Allergy/AdvReac Type Severity Reaction Status Date / Time No Known Allergies Allergy Verified 10/31/22 14:47 Assessment & Plan Assessment & Plan (1) Catatonia: Status: Acute Code(s): F06.1 - Catatonic disorder due to known physiological condition (2) Cocaine use disorder: Status: Acute Code(s): F14.10 - Cocaine abuse, uncomplicated (3) Depression: Qualifiers: Active/Remission status: currently active Depression Type: major depressive disorder Major depression episode severity: severe Major depression recurrence: unspecified whether recurrent Psychotic features: with psychotic features Qualified Code(s): F32.3 - Major depressive disorder, single episode, severe with psychotic features Status: Acute Code(s): F32.A - Depression, unspecified Plan 11/03: 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 11/04: pt refusing meds and not taking anything PO. nevertheless appears slightly improved from yesterday, more verbal with less latency of response. advised to take meds and fluids. 11/05: ate and drank some last night. refusing meds. no longer grossly catatonic. continue current mgmt. 11/06: no PO intake in past 24H. refusing meds. parnell warning, 3-day up wed. 11/07: no food, had some water last night. recheck BMP. completed commitment paperwork. refusing meds. 11/08: denies eating or drinking but yesterday's breakfast tray was empty on return. commitment filed. refusing meds. 11/09: continues without PO intake, not attending to ADLs. refusing meds. hearing scheduled for next . labs from yesterday not indicative of concerning dehydration. 11/10 continue tx. more talkative, although guarded. No overt delusional content reported. denies SI/HI. 11/11: will order CMP for tomorrow morning given uncertainty ref PO intake 11/13: increase in BUN and Cr due to dehydration 11/14: continue tx. refuses medications but unable to provide explanation as to why not show understanding in terms of effects of decrease oral intake on renal function. 11/15: unchanged from last week. intermittent meals, BUN mildly elevated. court tomorrow. 11/16: court deferred for BEHZAD. no change in presentation. place on 1:1 for observation of PO intake. lying all day in bed, PMR, with shades drawn, for a darkened room. refusing medications. 11/17: DC olanzapine. offer SSRI. eating and drinking this morning, after having been put on 1:1. continue current mgmt. commitment hearing likely next . 11/18: refusing to look at or speak with MD. clearly ate and drank more yesterday, up and out of room more. nevertheless, spends vast majority of his time lying in bed in the dark. refusing meds. 11/19: ate more yesterday and last night. DC 1:1. appearing catatonic today, no eye blink staring at ceiling not responding. 11/20: moderate PO intake yesterday. appearing more catatonic today. continue to offer meds. 11/21: catatonic. no report on sleep or PO intake as pt is off 1:1. continue to offer meds. 11/22: catatonic. labs reassuring. court tomorrow. 11/23: catatonic. committed and ordered meds in court. 11/24: start ativan 2 mg TID with IM back-up for catatonia. plan to start neuroleptics and anti-depressants once catatonia improved. 11/25: decrease ativan to 1mg tid as he had no response to 2 mg and might be experiencing sedation from it 11/26: More alert on lower ativan dose but remains non-verbal and lying in bed 11/27 increase ativan back to 2mg po TID back up IM. 11/28: T/C gaining IV access to facilitate delivery of ativan; plan to increase to QID dosing. remains catatonic. case d/w nursing administration and medical care managerdirector of veterans affairs. 11/29: gain IV access today, start ativan 2 mg IV QID. was out of bed, eating and speaking yesterday evening. 11/30: 1:1 as he removed IV access, apparently. was up in kitchen getting food on evening shift. continue current mgmt. 12/01: up twice in the past 24H, ate some, swore that lights in his room had been turned on. T/C adding valium 2 mg TID IV (per court order, maximum of 8 mg ativan may be given per day) and/or antipsychotic to regimen. case D/W david. 12/02: Check comprehensive metabolic labs in AM. Continue current management. 12/03: Improved post IM dose of Zyprexa last night. Ate better. More communicative. Continue current plan of care. 12/04: some improvement over w/e. increase IM zyprexa t HS to 5 mg each. continue current mgmt. 12/05: continue current mgmt. up several times yesterday, had conversation with reza nurse, observed eating dinner. 12/06: less active yesterday. did not receive IM zyprexa last night. continue current mgmt. 12/07: received zyprexa IM last night. up for breakfast this morning, exchanged some words with MD for first time in weeks. indicated he has a depressed mood. not opposed to anti-depressant. will start prozac liquid daily. 12/08: lying in bed, not responsive. several interactions with staff yesterday, limited and often non-verbal. refused PO prozac. continue current mgmt. 12/09: still catatonic. 12/10 still catatonic 12/11/22 Patient intermittently responsive often refusing p.o. meds may require ECT 12/12/2022 Patient remains mostly electively mute intermittently catatonic with some periods of verbal discourse 12/13/22 more verbal hx of recurrent depression still gets iv ativan refuses po meds 12 14 22 Continue Ativan and intravenous is encouraged fluoxetine continue olanzapine 5 mg patient does not appear to be psychotic would encourage ECT 12/15/2022 Continue plan of care labs reviewed sodium creatinine within normal limits 12/16: Continue current regimen and plans. Switch Zyprexa to a.m. use. 12/17: Continue current regimen and plans. Decrease Ativan by 2 mg and increase Zyprexa by 10 mg 12/18: continue current regimen. no change in catatonic presentation. 12/19: return ativan to 2 mg QID and zyprexa to 10 mg QHS only. 12/20: due to possibility of akathisia from zyprexa, will try lower potency anti-psychotic, thorazine. DC zyprexa and start thorazine 100 mg PO QHS with 50 mg IM if refuses PO. 12/21: received thorazine last NOC, IM. ate dinner and spoke with EMERY cobb. generally no improvement, no change in presentation. 12/22: awake briefly this morning, endorsing depression. vague, unable to state preference for Tx. continue current mgmt. hearing scheduled for next sunday re ECT. 12/23 ck labs consider iv fluids get med clearance ect 12/24/2022 Of Thorazine discontinued has not been effective can lower blood pressure and someone already with periods of dehydration strongly would benefit from ECT trial 12/25: continue current mgmt. up briefly today to move rooms. ate 3 meals yesterday, reportedly. hearing tomorrow for ECT. 12/26: staring today, no responses. hearing held today, judgment pending. decrease ativan to 2 mg TID in anticipation of ECT. medical clearance and EKG ordered. 12/26: staring today, no responses. IV access lost, will give IM ativan until IV access regained. awaiting word from court on ECT. 12/27: medically cleared for ECT, court ordered ECT. start ECT tomorrow. case d/w david in detail. taper ativan to 4 mg today, may need flumazenil tomorrow prior to ECT. continue ativan taper over w/e. 12/29: ECT #1 completed, clear improvement in mental status and insight. continue ativan taper. ECT #2 on sunday. 12/30: took PO meds yesterday morning after ECT, refusing since. continue current mgmt. 12/31: continue ativan taper. awake and verbal today. not eating or taking meds PO. ECT #2 tomorrow. 01/01: missed morning ECT due to inability to gain IV access. U/S guided IV inserted, will go for anoon ECT. PMR, inert, lying in bed; awake, however, and able to exchange a few words. 01/02 yesterday he had a he has ECT in the evening. Slight improvement. We added a midline IV access sings we could not get an IV access on the previous ECT easily. ECT tomorrow AM. 01/03: ECT #3 completed this morning. remains more alert and responsive than prior, yet still very poor PO intake and refusing PO meds. continue current mgmt. 01/04: remains alert and interactive. still PMR, poor appetite. ECT scheduled for tomorrow. 01/05: ECT #4 completed, continues more alert and engageable than prior to start of ECT. still not doing ADLs, not eating/drinking adequately. ECT #5 on sunday. 01/06: ECT #5 Sunday. Improved (known to this typewriter operator automatic from interaction over a month ago.). Continue current treatment plan. 01/07: Continue current management. 01/08: s/p ECT #5. improvements continue. trimmed gallegos, ate 3 meals yesterday, taking PO meds. ECT #6 . 01/09: informed SW that while catatonic had been hearing the voice of god telling him not to eat or he would go to hell. clinical presentation as per yesterday. ECT #6 tomorrow. concerned ECT is erasing [his] mind. 01/10: notably more social and visible in the milieu today. start zyprexa 5 at bedtime and increase prozac from 20 mg daily to 40 mg daily as of tomorrow. ECT #6 completed. 01/11: stably improved presentation. ECT #7 tomorrow. continue current mgmt. 01/12: ECT #7 completed without complication. stable gains. continue current mgmt. 01/13: Continue current regimen and plans 01/14: Continue current plans and regimen 01/15: Continue current regimen and plans 01/16: day by day marginal improvements. more ambulatory and social, now making discharge plans with . ECT #8 tomorrow. 01/17: for ECT #8 today. daily recovery continues. 01/18: for ECT #9 tomorrow. improving daily, today wearing street clothes for the first time this hospitalization. 01/19: ECT #9 today. planning to complete series of 12 as of next sunday, discharge to [facility] shortly thereafter. 01/21/2023: No changes, With ECT 10. Scheduled for tomorrow 01/22: completed ECT 10. no change in presentation. finish course through 12, then DC home to [place]. 01/23: stable. ECT #11 tomorrow. 01/24: ECT #11 completed without incident. no side effects from ECT. mood improved. planning to DC to [facility]. 01/25: final ECT, #12, tomorrow. stable, improved. DC to [facility] in [place] on sunday. aftercare in [facility]. Reason for continued inpatient stay Substantial Risk for: rapid decompensation Time Spent With Patient Time: Total time managing care of this patient today __25__ minutes.
[2023-01-25 20:20] VITALS: BP 121/78; PULSE 88; RESP 18; TEMP 36.6; O2SAT 95
[2023-01-25] MEDS: traZODone HCL 50 MG TABLET PO (20:22)
[2023-01-25] MEDS: OLANZapine 5 MG TABLET PO (20:22)
[2023-01-26] VITALS (10 sets, daily range): BP systolic 116–141; BP diastolic 62–89; PULSE 83–113; RESP 16–19; TEMP 36.4–37.2; O2SAT 92–99
--- NOTE | 2023-01-26 01:42 | PC.NURSE ---
Pt has midline in right arm. Midline flushed well. Small amount of blood in area of needle insertion. After flushing at 2020 pt denied pain. Approximately one hour after, pt c/o pain in the area. Reassessed area and there were no signs/sx of infiltration or infection. Pt then reported discomfort was not that bad .
[2023-01-26] MEDS: Nicotine 7 MG PATCH.TD24 TRANSDERMA (08:18)
[2023-01-26] MEDS: 0.9 % Sodium Chloride Flush 10 ML SYRINGE IVFLUSH (08:19)
--- NOTE | 2023-01-26 12:56 | P.CONAN_ITS ---
[facility] Active Problems Active Problems: All Active Problems (Updated 01/19/23 @ 14:07 by Wu Fraga) Catatonia (Acute) Cocaine use disorder, mild, in early remission (Acute) Mood disorder (Acute) Cocaine use disorder (Acute) Depression (Acute) Anorexia (Acute) Past Medical History Medical History Cocaine use disorder Family History Family history of problems with anesthesia: No Surgical History History of Problems with Anesthesia: No Social History Social History Household Members: None Housing: Other Housing Other:: TSS Unable to assess alcohol history related to: Refusing to respond Patient Tobacco Use Status: Never used Tobacco Second Hand Smoke Exposure: No Use of substances other than those prescribed or required for medical reasons: No Currently Displaying Signs/Symptoms of Drug Intoxication Withdrawal: No Have you been hit, kicked, punched, or otherwise hurt by someone within the past year? If so, by whom?: No Do you feel safe in your current relationship?: No Current Relationship Is there a partner from a previous relationship who is making you feel unsafe now?: No Are you made to feel afraid or neglected: No Are you DNR?: No Advance Directives: No Advance Directives Information Provided: Yes Advance Directives on File: No Do you have thoughts of harming others: None Do you have a plan to hurt others: No Plan Recently lost weight without trying: No Nutrition Risks: No Nutritional Risk Poor oral hygiene: No service: No Sexual orientation: Decline to Answer Meds Allergies Allergy/AdvReac Type Severity Reaction Status Date / Time No Known Allergies Allergy Verified 10/31/22 14:47 Active Medications: Current Medications Acetaminophen (Acetaminophen 325 Mg Tablet) 650 mg PO Q6H PRN PRN Reason: Headache/Pain Mild Scale (1-3) Last Admin: 01/18/23 17:50 Dose: 650 mg Al Hydroxide/Mg Hydroxide (Magnesium Hydrox/Alum Hydrox 30 Ml Oral.Susp) 30 ml PO Q6H PRN PRN Reason: Heartburn/Nausea Artificial Tears (Artificial Tears 15 Ml Drops) 2 drop EYE-BOTH Q4H PRN PRN Reason: Dry Eyes Last Admin: 12/02/22 14:19 Dose: 2 drop Benzocaine (Throat Lozenge, Medicated Lozenge) 1 lozenge MUCOUS MEM Q2H PRN PRN Reason: Sore Throat Last Admin: 12/29/22 12:23 Dose: 1 lozenge Fluoxetine HCl (Fluoxetine Hcl 20 Mg Capsule) 40 mg PO DAILY [facility] Last Admin: 01/25/23 08:15 Dose: 40 mg Heparin Sodium (Porcine) (Heparin Sodium,Porcine Flush 50 Units/5 Ml Syringe) 50 units IVFLUSH DAILY PRN PRN Reason: occlusion Last Admin: 01/23/23 23:53 Dose: 50 units Hydroxyzine HCl (Hydroxyzine Hcl 25 Mg Tablet) 25 mg PO Q6H PRN PRN Reason: Anxiety Last Admin: 01/18/23 17:49 Dose: 25 mg Magnesium Hydroxide (Milk Of Magnesia 30 Ml Oral.Susp) 30 ml PO DAILY PRN PRN Reason: Constipation Nicotine (Nicotine 7 Mg Patch.Td24) 7 mg TRANSDERMA DAILY [facility] Last Admin: 01/26/23 08:18 Dose: 7 mg Nicotine Polacrilex (Nicotine Polacrilex Lozenge 2 Mg Lozenge) 2 mg BUCCAL Q2H PRN PRN Reason: nicotine withdrawal Last Admin: 01/14/23 16:13 Dose: 2 mg Olanzapine (Olanzapine 5 Mg Tablet) 5 mg PO BEDTIME [facility] Last Admin: 01/25/23 20:22 Dose: 5 mg Ondansetron HCl (Ondansetron Hcl 4 Mg/2 Ml Vial) 4 mg IVPUSH ONCE PRN PRN Reason: Nausea and Vomiting Sodium Chloride (0.9 % Sodium Chloride Flush 10 Ml Syringe) 10 ml IVFLUSH Q8H [facility] Last Admin: 01/26/23 08:19 Dose: 10 ml Trazodone HCl (Trazodone Hcl 50 Mg Tablet) 50 mg PO BEDTIME PRN PRN Reason: Insomnia Last Admin: 01/25/23 20:22 Dose: 50 mg Home Medications Medication Instructions Recorded Confirmed Last Taken Type No Known Home Meds 10/31/22 11/04/22 Unknown History Exam Exam Date and Time: January 26, 2023 125 Height,Weight and Vital Signs: Height 6 ft Weight 82.645 kg Last Vital Signs Temp 98.5 F 01/26/23 12:36 Pulse 87 01/26/23 12:36 Resp 16 01/26/23 12:36 BP 129/83 01/26/23 12:36 Pulse Ox 97 01/26/23 12:36 O2 Del Method Room Air 01/26/23 12:36 O2 Flow Rate 3 01/24/23 07:59 Pertinent Lab Results Pertinent Lab Results: Laboratory Tests 11/03/22 11/05/22 11/08/22 15:48 12:58 15:07 Sodium 142 140 Potassium 4.1 D 4.1 Chloride 108 105 Carbon Dioxide 26 28 Anion Gap 12 11 L BUN 23 H 15 Creatinine 0.73 0.83 0.72 Estim Creat Clear Calc TNP TNP TNP Estimated GFR > 60 > 60 > 60 Random Glucose 97 95 Calcium 9.1 9.7 D Total Bilirubin AST ALT Alkaline Phosphatase Total Protein Albumin 11/13/22 11/16/22 11/22/22 08:00 08:11 11:55 Sodium 140 138 137 Potassium 4.8 4.9 4.5 Chloride 103 106 106 Carbon Dioxide 22 22 25 Anion Gap 20 15 11 L BUN 25 H 16 16 Creatinine 1.07 0.97 0.86 Estim Creat Clear Calc TNP TNP TNP Estimated GFR > 60 > 60 > 60 Random Glucose 73 89 93 Calcium 10.0 9.6 9.9 Total Bilirubin 0.9 0.9 AST 21 22 ALT 16 15 Alkaline Phosphatase 62 59 Total Protein 7.1 6.8 Albumin 4.0 3.6 12/03/22 12/15/22 12/23/22 07:45 09:53 17:51 Sodium 139 139 139 Potassium 4.8 4.3 4.2 Chloride 107 106 104 Carbon Dioxide 24 23 23 Anion Gap 13 14 16 BUN 13 11 11 Creatinine 0.73 0.74 0.77 Estim Creat Clear Calc TNP TNP TNP Estimated GFR > 60 > 60 > 60 Random Glucose 103 86 79 Calcium 9.3 D 9.3 9.8 Total Bilirubin 0.5 0.7 0.8 AST 25 18 24 ALT 20 16 16 Alkaline Phosphatase 47 55 68 Total Protein 6.4 L 6.5 7.1 Albumin 3.5 3.6 4.0 Airway Mallampati Class: II TM Dist: >3cm Neck ROM: Full Heart: rrr Lungs: cta Assessment and Plan Assessment Anesthesia Assessment: Anesthesia Plan Discussed and Chart Reviewed Final Anesthetic Review Family History of Problems with Anesthesia: No History of Problems with Anesthesia: No NPO: Yes ASA Class: III Final Preanesthetic Review: No Changes in Pt Med Stat, Meds/Allgs Chart Reviewed and Consent Obtained/Reviewed Patient Risk: Intermediate Procedure Risk: Intermediate Anesthetic Plan Anesthetic Plan: MAC: Disposition: Standard PACU
--- NOTE | 2023-01-26 13:02 | P.PNPSI_ITS ---
Subjective Subjective Date of Service: 01/26/23 Reason For Visit: catatonia Subjective Notes: Section 8 Interim History: Pt lying in bed. He woke up. No very talkative but did sit up to meet with this ticket writer. Pt denies physical pain. No SI/HI. No overt psychosis. When asked about sleep, as nursing reports he tells them he does not sleep, he reports I don't know. He was waiting for ECT Mental Status Exam Mental Status Exam Narrative: Mental Status Exam Narrative: Appearance: Casually dressed Behavior: Cooperative appropriate psychomotor: Within normal limits Speech: Normal volume and prosody Thought proccess logical and goal-directed Thought content: Future oriented no self-harming thoughts some concerns about the future Mood: Some anxiety Affect: Appropriate to mood somewhat constricted SI:denies HI:denies VH/AH:none Delusions: None Insight/judgment: Improved insight and judgment Memory/cog: Intact Diagnostics Vital Signs (24Hr): Vital Signs - 24 hr 01/25/23 20:20 01/26/23 08:20 01/26/23 12:36 Temperature 97.9 F 98.2 F 98.5 F Pulse Rate 88 95 87 Respiratory Rate 18 18 16 Blood Pressure 121/78 117/73 129/83 Pulse Oximetry 95 96 97 Oxygen Delivery Method Room Air Room Air Room Air BMI result Body Mass Index 24.7 Labs 12/23/22 17:51 Medications Medications Current Medications Acetaminophen (Acetaminophen 325 Mg Tablet) 650 mg PO Q6H PRN PRN Reason: Headache/Pain Mild Scale (1-3) Last Admin: 01/18/23 17:50 Dose: 650 mg Al Hydroxide/Mg Hydroxide (Magnesium Hydrox/Alum Hydrox 30 Ml Oral.Susp) 30 ml PO Q6H PRN PRN Reason: Heartburn/Nausea Artificial Tears (Artificial Tears 15 Ml Drops) 2 drop EYE-BOTH Q4H PRN PRN Reason: Dry Eyes Last Admin: 12/02/22 14:19 Dose: 2 drop Benzocaine (Throat Lozenge, Medicated Lozenge) 1 lozenge MUCOUS MEM Q2H PRN PRN Reason: Sore Throat Last Admin: 12/29/22 12:23 Dose: 1 lozenge Fluoxetine HCl (Fluoxetine Hcl 20 Mg Capsule) 40 mg PO DAILY GABRIEL Last Admin: 01/25/23 08:15 Dose: 40 mg Heparin Sodium (Porcine) (Heparin Sodium,Porcine Flush 50 Units/5 Ml Syringe) 50 units IVFLUSH DAILY PRN PRN Reason: occlusion Last Admin: 01/23/23 23:53 Dose: 50 units Hydroxyzine HCl (Hydroxyzine Hcl 25 Mg Tablet) 25 mg PO Q6H PRN PRN Reason: Anxiety Last Admin: 01/18/23 17:49 Dose: 25 mg Lactated Ringer's (Lr) 1,000 mls @ 50 mls/hr IVCONT .Q20H [facility] Magnesium Hydroxide (Milk Of Magnesia 30 Ml Oral.Susp) 30 ml PO DAILY PRN PRN Reason: Constipation Nicotine (Nicotine 7 Mg Patch.Td24) 7 mg TRANSDERMA DAILY [facility] Last Admin: 01/26/23 08:18 Dose: 7 mg Nicotine Polacrilex (Nicotine Polacrilex Lozenge 2 Mg Lozenge) 2 mg BUCCAL Q2H PRN PRN Reason: nicotine withdrawal Last Admin: 01/14/23 16:13 Dose: 2 mg Olanzapine (Olanzapine 5 Mg Tablet) 5 mg PO BEDTIME GABRIEL Last Admin: 01/25/23 20:22 Dose: 5 mg Ondansetron HCl (Ondansetron Hcl 4 Mg/2 Ml Vial) 4 mg IVPUSH ONCE PRN PRN Reason: Nausea and Vomiting Sodium Chloride (0.9 % Sodium Chloride Flush 10 Ml Syringe) 10 ml IVFLUSH Q8H [facility] Last Admin: 01/26/23 08:19 Dose: 10 ml Trazodone HCl (Trazodone Hcl 50 Mg Tablet) 50 mg PO BEDTIME PRN PRN Reason: Insomnia Last Admin: 01/25/23 20:22 Dose: 50 mg Allergies Allergies Allergy/AdvReac Type Severity Reaction Status Date / Time No Known Allergies Allergy Verified 10/31/22 14:47 Assessment & Plan Assessment & Plan (1) Catatonia: Status: Acute Code(s): F06.1 - Catatonic disorder due to known physiological condition (2) Cocaine use disorder: Status: Acute Code(s): F14.10 - Cocaine abuse, uncomplicated (3) Depression: Qualifiers: Active/Remission status: currently active Depression Type: major depressive disorder Major depression episode severity: severe Major depression recurrence: unspecified whether recurrent Psychotic features: with psychotic features Qualified Code(s): F32.3 - Major depressive disorder, single episode, severe with psychotic features Status: Acute Code(s): F32.A - Depression, unspecified Plan 11/03: 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 11/04: pt refusing meds and not taking anything PO. nevertheless appears slightly improved from yesterday, more verbal with less latency of response. advised to take meds and fluids. 11/05: ate and drank some last night. refusing meds. no longer grossly catatonic. continue current mgmt. 11/06: no PO intake in past 24H. refusing meds. parnell warning, 3-day up . 11/07: no food, had some water last night. recheck BMP. completed commitment paperwork. refusing meds. 11/08: denies eating or drinking but yesterday's breakfast tray was empty on return. commitment filed. refusing meds. 11/09: continues without PO intake, not attending to ADLs. refusing meds. hearing scheduled for next . labs from yesterday not indicative of concerning dehydration. 11/10 continue tx. more talkative, although guarded. No overt delusional content reported. denies SI/HI. 11/11: will order CMP for tomorrow morning given uncertainty ref PO intake 11/13: increase in BUN and Cr due to dehydration 11/14: continue tx. refuses medications but unable to provide explanation as to why not show understanding in terms of effects of decrease oral intake on renal function. 11/15: unchanged from last week. intermittent meals, BUN mildly elevated. court tomorrow. 11/16: court deferred for BEHZAD. no change in presentation. place on 1:1 for observation of PO intake. lying all day in bed, PMR, with shades drawn, for a darkened room. refusing medications. 11/17: DC olanzapine. offer SSRI. eating and drinking this morning, after having been put on 1:1. continue current mgmt. commitment hearing likely next . 11/18: refusing to look at or speak with MD. clearly ate and drank more yesterday, up and out of room more. nevertheless, spends vast majority of his time lying in bed in the dark. refusing meds. 11/19: ate more yesterday and last night. DC 1:1. appearing catatonic today, no eye blink staring at ceiling not responding. 11/20: moderate PO intake yesterday. appearing more catatonic today. continue to offer meds. 11/21: catatonic. no report on sleep or PO intake as pt is off 1:1. continue to offer meds. 11/22: catatonic. labs reassuring. court tomorrow. 11/23: catatonic. committed and ordered meds in court. 11/24: start ativan 2 mg TID with IM back-up for catatonia. plan to start neuroleptics and anti-depressants once catatonia improved. 11/25: decrease ativan to 1mg tid as he had no response to 2 mg and might be experiencing sedation from it 11/26: More alert on lower ativan dose but remains non-verbal and lying in bed 11/27 increase ativan back to 2mg po TID back up IM. 11/28: T/C gaining IV access to facilitate delivery of ativan; plan to increase to QID dosing. remains catatonic. case d/w nursing administration and medical billing managerchild development director. 11/29: gain IV access today, start ativan 2 mg IV QID. was out of bed, eating and speaking yesterday evening. 11/30: 1:1 as he removed IV access, apparently. was up in kitchen getting food on evening shift. continue current mgmt. 12/01: up twice in the past 24H, ate some, swore that lights in his room had been turned on. T/C adding valium 2 mg TID IV (per court order, maximum of 8 mg ativan may be given per day) and/or antipsychotic to regimen. case D/W david. 12/02: Check comprehensive metabolic labs in AM. Continue current management. 12/03: Improved post IM dose of Zyprexa last night. Ate better. More communicative. Continue current plan of care. 12/04: some improvement over w/e. increase IM zyprexa t HS to 5 mg each. continue current mgmt. 12/05: continue current mgmt. up several times yesterday, had conversation with reza nurse, observed eating dinner. 12/06: less active yesterday. did not receive IM zyprexa last night. continue current mgmt. 12/07: received zyprexa IM last night. up for breakfast this morning, exchanged some words with MD for first time in weeks. indicated he has a depressed mood. not opposed to anti-depressant. will start prozac liquid daily. 12/08: lying in bed, not responsive. several interactions with staff yesterday, limited and often non-verbal. refused PO prozac. continue current mgmt. 12/09: still catatonic. 12/10 still catatonic 12/11/22 Patient intermittently responsive often refusing p.o. meds may require ECT 12/12/2022 Patient remains mostly electively mute intermittently catatonic with some periods of verbal discourse 12/13/22 more verbal hx of recurrent depression still gets iv ativan refuses po meds 12 14 22 Continue Ativan and intravenous is encouraged fluoxetine continue olanzapine 5 mg patient does not appear to be psychotic would encourage ECT 12/15/2022 Continue plan of care labs reviewed sodium creatinine within normal limits 12/16: Continue current regimen and plans. Switch Zyprexa to a.m. use. 12/17: Continue current regimen and plans. Decrease Ativan by 2 mg and increase Zyprexa by 10 mg 12/18: continue current regimen. no change in catatonic presentation. 12/19: return ativan to 2 mg QID and zyprexa to 10 mg QHS only. 12/20: due to possibility of akathisia from zyprexa, will try lower potency anti- psychotic, thorazine. DC zyprexa and start thorazine 100 mg PO QHS with 50 mg IM if refuses PO. 12/21: received thorazine last NOC, IM. ate dinner and spoke with EMERY cobb. generally no improvement, no change in presentation. 12/22: awake briefly this morning, endorsing depression. vague, unable to state preference for Tx. continue current mgmt. hearing scheduled for next sunday re ECT. 12/23 ck labs consider iv fluids get med clearance ect 12/24/2022 Of Thorazine discontinued has not been effective can lower blood pressure and someone already with periods of dehydration strongly would benefit from ECT trial 12/25: continue current mgmt. up briefly today to move rooms. ate 3 meals yesterday, reportedly. hearing tomorrow for ECT. 12/26: staring today, no responses. hearing held today, judgment pending. decrease ativan to 2 mg TID in anticipation of ECT. medical clearance and EKG ordered. 12/26: staring today, no responses. IV access lost, will give IM ativan until IV access regained. awaiting word from court on ECT. 12/27: medically cleared for ECT, court ordered ECT. start ECT tomorrow. case d/w david in detail. taper ativan to 4 mg today, may need flumazenil tomorrow prior to ECT. continue ativan taper over w/e. 12/29: ECT #1 completed, clear improvement in mental status and insight. continue ativan taper. ECT #2 on sunday. 12/30: took PO meds yesterday morning after ECT, refusing since. continue current mgmt. 12/31: continue ativan taper. awake and verbal today. not eating or taking meds PO. ECT #2 tomorrow. 01/01: missed morning ECT due to inability to gain IV access. U/S guided IV inserted, will go for anoon ECT. PMR, inert, lying in bed; awake, however, and able to exchange a few words. 01/02 yesterday he had a he has ECT in the evening. Slight improvement. We added a midline IV access sings we could not get an IV access on the previous ECT easily. ECT tomorrow AM. 01/03: ECT #3 completed this morning. remains more alert and responsive than prior, yet still very poor PO intake and refusing PO meds. continue current mgmt. 01/04: remains alert and interactive. still PMR, poor appetite. ECT scheduled for tomorrow. 01/05: ECT #4 completed, continues more alert and engageable than prior to start of ECT. still not doing ADLs, not eating/drinking adequately. ECT #5 on sunday. 01/06: ECT #5 Sunday. Improved (known to this ticket writer from interaction over a month ago.). Continue current treatment plan. 01/07: Continue current management. 01/08: s/p ECT #5. improvements continue. trimmed gallegos, ate 3 meals yesterday, taking PO meds. ECT #6 . 01/09: informed SW that while catatonic had been hearing the voice of god telling him not to eat or he would go to hell. clinical presentation as per yesterday. ECT #6 tomorrow. concerned ECT is erasing [his] mind. 01/10: notably more social and visible in the milieu today. start zyprexa 5 at bedtime and increase prozac from 20 mg daily to 40 mg daily as of tomorrow. ECT #6 completed. 01/11: stably improved presentation. ECT #7 tomorrow. continue current mgmt. 01/12: ECT #7 completed without complication. stable gains. continue current mgmt. 01/13: Continue current regimen and plans 01/14: Continue current plans and regimen 01/15: Continue current regimen and plans 01/16: day by day marginal improvements. more ambulatory and social, now making discharge plans with . ECT #8 tomorrow. 01/17: for ECT #8 today. daily recovery continues. 01/18: for ECT #9 tomorrow. improving daily, today wearing street clothes for the first time this hospitalization. 01/19: ECT #9 today. planning to complete series of 12 as of next sunday, discharge to [facility] shortly thereafter. 01/21/2023: No changes, With ECT 10. Scheduled for tomorrow 01/22: completed ECT 10. no change in presentation. finish course through , then DC home to [place]. 01/23: stable. ECT #11 tomorrow. 01/24: ECT #11 completed without incident. no side effects from ECT. mood improved. planning to DC to [facility]. 01/25: final ECT, #12, tomorrow. stable, improved. DC to [facility] in [place] on sunday. aftercare in [facility]. 01/26 continue tx. Reason for continued inpatient stay Substantial Risk for: inability to function Time Spent With Patient Time: Total time managing care of this patient today ____ minutes.
--- NOTE | 2023-01-26 13:41 | MHC.SHP ---
Pre-Procedural Eval Section A Date of Service: 01/26/23 The patient is an INPATIENT: Yes Changes since office visit: Yes Patient answered all questions; No Cold of Flu in the past 2 weeks, No New Medical Problems and No Changes in Medication The History & Physical has been completed within 30 days and I have reviewed it.: Yes Section B Chief Complaint: catatonia Allergies: Allergies Allergy/AdvReac Type Severity Reaction Status Date / Time No Known Allergies Allergy Verified 10/31/22 14:47 Plan I have reviewed the history and physical and performed a pertinent physical examination on my patient. No changes have occurred unless specified. Time Spent With Patient Time: Total time managing care of this patient today ____ minutes.
--- NOTE | 2023-01-26 14:02 | HO.ECTPROC ---
ECT Procedure Note Diagnosis/Treatment Date of Service: 01/26/23 Diagnosis: Catatonia Previous ECT Date: 01/22/23 Current Treatment Number: 12 Treatment: Series Interval Clinical Notes: Pt much improved no c/o side effects no hallucinations mood stable Time: Total time managing care of this patient today ____ minutes. ECT Settings Device: THYMATRON DGx Electrode Placement: Right Unilateral Program/Pulse Width: 0.50 Energy Percent: 100 Seizure Duration By EEG (in seconds): 37 By Motor Observation (in seconds): 0 Medications Administration General Anesthetic: Etomidate (16) Muscle Relaxant: Succinylcholine (100) Ancillary Medications Analgesics: Torodol - Pre ECT (30) Anti-emetics: Zofran - Pre ECT (4) Miscillaneous Medications: Midazolam Airway Management Airway Management: Bag Mask Ventilation Treatment Recommendations No Changes Recommended: No change Notes: This was the last scheduled ECT patient is scheduled for potential discharge Pt Tolerated Procedure w/o Issue: Yes
[2023-01-26] MEDS: FLUoxetine HCl 20 MG CAPSULE 40 MG PO (18:50)
[2023-01-26] MEDS: OLANZapine 5 MG TABLET PO (21:34)
[2023-01-26] MEDS: traZODone HCL 50 MG TABLET PO ×2 (21:34→22:30)
--- NOTE | 2023-01-26 23:57 | HO.PSYCHPN ---
Subjective Subjective Date of Service: 01/26/23 Reason For Visit: catatonia Interim History: The patient has significantly stabilized some anxiety about the future he is more willing to be engaged with his family no current psychotic process tolerated 12 ECT today scheduled for discharge in 3 days if stable Medication Compliance: Yes Mental Status Exam Mental Status Exam Narrative: Mental Status Exam Narrative: Appearance: Casually dressed Behavior: Cooperative appropriate psychomotor: Within normal limits Speech: Normal volume and prosody Thought proccess logical and goal-directed Thought content: Future oriented no self-harming thoughts some concerns about the future Mood: Some anxiety Affect: Appropriate to mood somewhat constricted SI:denies HI:denies VH/AH:none Delusions: None Insight/judgment: Improved insight and judgment Memory/cog: Intact Diagnostics Vital Signs (24Hr): Vital Signs - 24 hr 01/26/23 08:20 01/26/23 12:36 01/26/23 13:58 Temperature 98.2 F 98.5 F 98.4 F Pulse Rate 95 87 110 H Respiratory Rate 18 16 16 Blood Pressure 117/73 129/83 127/89 Pulse Oximetry 96 97 96 Oxygen Delivery Method Room Air Room Air Room Air Oxygen Flow Rate 01/26/23 14:03 01/26/23 14:08 01/26/23 14:13 Temperature Pulse Rate 103 H 97 99 Respiratory Rate 16 16 17 Blood Pressure 116/62 117/69 122/64 Pulse Oximetry 98 92 96 Oxygen Delivery Method Room Air Room Air Nasal Cannula with ETCO2 Oxygen Flow Rate 2 01/26/23 14:28 01/26/23 14:43 01/26/23 14:45 Temperature 98.5 F 99.0 F Pulse Rate 99 96 83 Respiratory Rate 17 18 16 Blood Pressure 120/73 123/80 123/76 Pulse Oximetry 95 95 99 Oxygen Delivery Method Room Air Room Air Oxygen Flow Rate 01/26/23 21:15 Temperature 97.5 F Pulse Rate 113 H Respiratory Rate 19 Blood Pressure 141/81 H Pulse Oximetry 96 Oxygen Delivery Method Room Air Oxygen Flow Rate BMI result Body Mass Index 24.7 Labs 12/23/22 17:51 Medications Medications Current Medications Acetaminophen (Acetaminophen 325 Mg Tablet) 650 mg PO Q6H PRN PRN Reason: Headache/Pain Mild Scale (1-3) Last Admin: 01/18/23 17:50 Dose: 650 mg Al Hydroxide/Mg Hydroxide (Magnesium Hydrox/Alum Hydrox 30 Ml Oral.Susp) 30 ml PO Q6H PRN PRN Reason: Heartburn/Nausea Artificial Tears (Artificial Tears 15 Ml Drops) 2 drop EYE-BOTH Q4H PRN PRN Reason: Dry Eyes Last Admin: 12/02/22 14:19 Dose: 2 drop Benzocaine (Throat Lozenge, Medicated Lozenge) 1 lozenge MUCOUS MEM Q2H PRN PRN Reason: Sore Throat Last Admin: 12/29/22 12:23 Dose: 1 lozenge Fluoxetine HCl (Fluoxetine Hcl 20 Mg Capsule) 40 mg PO DAILY [facility] Last Admin: 01/26/23 18:50 Dose: 40 mg Heparin Sodium (Porcine) (Heparin Sodium,Porcine Flush 50 Units/5 Ml Syringe) 50 units IVFLUSH DAILY PRN PRN Reason: occlusion Last Admin: 01/23/23 23:53 Dose: 50 units Hydroxyzine HCl (Hydroxyzine Hcl 25 Mg Tablet) 25 mg PO Q6H PRN PRN Reason: Anxiety Last Admin: 01/18/23 17:49 Dose: 25 mg Magnesium Hydroxide (Milk Of Magnesia 30 Ml Oral.Susp) 30 ml PO DAILY PRN PRN Reason: Constipation Nicotine (Nicotine 7 Mg Patch.Td24) 7 mg TRANSDERMA DAILY [facility] Last Admin: 01/26/23 08:18 Dose: 7 mg Nicotine Polacrilex (Nicotine Polacrilex Lozenge 2 Mg Lozenge) 2 mg BUCCAL Q2H PRN PRN Reason: nicotine withdrawal Last Admin: 01/14/23 16:13 Dose: 2 mg Olanzapine (Olanzapine 5 Mg Tablet) 5 mg PO BEDTIME [facility] Last Admin: 01/26/23 21:34 Dose: 5 mg Ondansetron HCl (Ondansetron Hcl 4 Mg/2 Ml Vial) 4 mg IVPUSH ONCE PRN PRN Reason: Nausea and Vomiting Sodium Chloride (0.9 % Sodium Chloride Flush 10 Ml Syringe) 10 ml IVFLUSH Q8H [facility] Last Admin: 01/26/23 21:31 Dose: Not Given Trazodone HCl (Trazodone Hcl 50 Mg Tablet) 50 mg PO BEDTIME PRN PRN Reason: Insomnia Last Admin: 01/26/23 22:30 Dose: 50 mg Allergies Allergies Allergy/AdvReac Type Severity Reaction Status Date / Time No Known Allergies Allergy Verified 10/31/22 14:47 Assessment & Plan Assessment & Plan (1) Catatonia: Status: Acute Code(s): F06.1 - Catatonic disorder due to known physiological condition (2) Cocaine use disorder: Status: Acute Code(s): F14.10 - Cocaine abuse, uncomplicated (3) Depression: Qualifiers: Active/Remission status: currently active Depression Type: major depressive disorder Major depression episode severity: severe Major depression recurrence: unspecified whether recurrent Psychotic features: with psychotic features Qualified Code(s): F32.3 - Major depressive disorder, single episode, severe with psychotic features Status: Acute Code(s): F32.A - Depression, unspecified Plan 11/03: 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 11/04: pt refusing meds and not taking anything PO. nevertheless appears slightly improved from yesterday, more verbal with less latency of response. advised to take meds and fluids. 11/05: ate and drank some last night. refusing meds. no longer grossly catatonic. continue current mgmt. 11/06: no PO intake in past 24H. refusing meds. parnell warning, 3-day up . 11/07: no food, had some water last night. recheck BMP. completed commitment paperwork. refusing meds. 11/08: denies eating or drinking but yesterday's breakfast tray was empty on return. commitment filed. refusing meds. 11/09: continues without PO intake, not attending to ADLs. refusing meds. hearing scheduled for next . labs from yesterday not indicative of concerning dehydration. 11/10 continue tx. more talkative, although guarded. No overt delusional content reported. denies SI/HI. 11/11: will order CMP for tomorrow morning given uncertainty ref PO intake 11/13: increase in BUN and Cr due to dehydration 11/14: continue tx. refuses medications but unable to provide explanation as to why not show understanding in terms of effects of decrease oral intake on renal function. 11/15: unchanged from last week. intermittent meals, BUN mildly elevated. court tomorrow. 11/16: court deferred for BEHZAD. no change in presentation. place on 1:1 for observation of PO intake. lying all day in bed, PMR, with shades drawn, for a darkened room. refusing medications. 11/17: DC olanzapine. offer SSRI. eating and drinking this morning, after having been put on 1:1. continue current mgmt. commitment hearing likely next . 11/18: refusing to look at or speak with MD. clearly ate and drank more yesterday, up and out of room more. nevertheless, spends vast majority of his time lying in bed in the dark. refusing meds. 11/19: ate more yesterday and last night. DC 1:1. appearing catatonic today, no eye blink staring at ceiling not responding. 11/20: moderate PO intake yesterday. appearing more catatonic today. continue to offer meds. 11/21: catatonic. no report on sleep or PO intake as pt is off 1:1. continue to offer meds. 11/22: catatonic. labs reassuring. court tomorrow. 11/23: catatonic. committed and ordered meds in court. 11/24: start ativan 2 mg TID with IM back-up for catatonia. plan to start neuroleptics and anti-depressants once catatonia improved. 11/25: decrease ativan to 1mg tid as he had no response to 2 mg and might be experiencing sedation from it 11/26: More alert on lower ativan dose but remains non-verbal and lying in bed 11/27 increase ativan back to 2mg po TID back up IM. 11/28: T/C gaining IV access to facilitate delivery of ativan; plan to increase to QID dosing. remains catatonic. case d/w nursing administration and medical billing servicecancer program director. 11/29: gain IV access today, start ativan 2 mg IV QID. was out of bed, eating and speaking yesterday evening. 11/30: 1:1 as he removed IV access, apparently. was up in kitchen getting food on evening shift. continue current mgmt. 12/01: up twice in the past 24H, ate some, swore that lights in his room had been turned on. T/C adding valium 2 mg TID IV (per court order, maximum of 8 mg ativan may be given per day) and/or antipsychotic to regimen. case D/W david. 12/02: Check comprehensive metabolic labs in AM. Continue current management. 12/03: Improved post IM dose of Zyprexa last night. Ate better. More communicative. Continue current plan of care. 12/04: some improvement over w/e. increase IM zyprexa t HS to 5 mg each. continue current mgmt. 12/05: continue current mgmt. up several times yesterday, had conversation with reza nurse, observed eating dinner. 12/06: less active yesterday. did not receive IM zyprexa last night. continue current mgmt. 12/07: received zyprexa IM last night. up for breakfast this morning, exchanged some words with MD for first time in weeks. indicated he has a depressed mood. not opposed to anti-depressant. will start prozac liquid daily. 12/08: lying in bed, not responsive. several interactions with staff yesterday, limited and often non-verbal. refused PO prozac. continue current mgmt. 12/09: still catatonic. 12/10 still catatonic 12/11/22 Patient intermittently responsive often refusing p.o. meds may require ECT 12/12/2022 Patient remains mostly electively mute intermittently catatonic with some periods of verbal discourse 12/13/22 more verbal hx of recurrent depression still gets iv ativan refuses po meds 12 14 22 Continue Ativan and intravenous is encouraged fluoxetine continue olanzapine 5 mg patient does not appear to be psychotic would encourage ECT 12/15/2022 Continue plan of care labs reviewed sodium creatinine within normal limits 12/16: Continue current regimen and plans. Switch Zyprexa to a.m. use. 12/17: Continue current regimen and plans. Decrease Ativan by 2 mg and increase Zyprexa by 10 mg 12/18: continue current regimen. no change in catatonic presentation. 12/19: return ativan to 2 mg QID and zyprexa to 10 mg QHS only. 12/20: due to possibility of akathisia from zyprexa, will try lower potency anti-psychotic, thorazine. DC zyprexa and start thorazine 100 mg PO QHS with 50 mg IM if refuses PO. 12/21: received thorazine last NOC, IM. ate dinner and spoke with EMERY cobb. generally no improvement, no change in presentation. 12/22: awake briefly this morning, endorsing depression. vague, unable to state preference for Tx. continue current mgmt. hearing scheduled for next sunday re ECT. 12/23 ck labs consider iv fluids get med clearance ect 12/24/2022 Of Thorazine discontinued has not been effective can lower blood pressure and someone already with periods of dehydration strongly would benefit from ECT trial 12/25: continue current mgmt. up briefly today to move rooms. ate 3 meals yesterday, reportedly. hearing tomorrow for ECT. 12/26: staring today, no responses. hearing held today, judgment pending. decrease ativan to 2 mg TID in anticipation of ECT. medical clearance and EKG ordered. 12/26: staring today, no responses. IV access lost, will give IM ativan until IV access regained. awaiting word from court on ECT. 12/27: medically cleared for ECT, court ordered ECT. start ECT tomorrow. case d/w david in detail. taper ativan to 4 mg today, may need flumazenil tomorrow prior to ECT. continue ativan taper over w/e. 12/29: ECT #1 completed, clear improvement in mental status and insight. continue ativan taper. ECT #2 on sunday. 12/30: took PO meds yesterday morning after ECT, refusing since. continue current mgmt. 12/31: continue ativan taper. awake and verbal today. not eating or taking meds PO. ECT #2 tomorrow. 01/01: missed morning ECT due to inability to gain IV access. U/S guided IV inserted, will go for anoon ECT. PMR, inert, lying in bed; awake, however, and able to exchange a few words. 01/02 yesterday he had a he has ECT in the evening. Slight improvement. We added a midline IV access sings we could not get an IV access on the previous ECT easily. ECT tomorrow AM. 01/03: ECT #3 completed this morning. remains more alert and responsive than prior, yet still very poor PO intake and refusing PO meds. continue current mgmt. 01/04: remains alert and interactive. still PMR, poor appetite. ECT scheduled for tomorrow. 01/05: ECT #4 completed, continues more alert and engageable than prior to start of ECT. still not doing ADLs, not eating/drinking adequately. ECT #5 on sunday. 01/06: ECT #5 Sunday. Improved (known to this entry writer from interaction over a month ago.). Continue current treatment plan. 01/07: Continue current management. 01/08: s/p ECT #5. improvements continue. trimmed gallegos, ate 3 meals yesterday, taking PO meds. ECT #6 . 01/09: informed SW that while catatonic had been hearing the voice of god telling him not to eat or he would go to hell. clinical presentation as per yesterday. ECT #6 tomorrow. concerned ECT is erasing [his] mind. 01/10: notably more social and visible in the milieu today. start zyprexa 5 at bedtime and increase prozac from 20 mg daily to 40 mg daily as of tomorrow. ECT #6 completed. 01/11: stably improved presentation. ECT #7 tomorrow. continue current mgmt. 01/12: ECT #7 completed without complication. stable gains. continue current mgmt. 01/13: Continue current regimen and plans 01/14: Continue current plans and regimen 01/15: Continue current regimen and plans 01/16: day by day marginal improvements. more ambulatory and social, now making discharge plans with SW. ECT #8 tomorrow. 01/17: for ECT #8 today. daily recovery continues. 01/18: for ECT #9 tomorrow. improving daily, today wearing street clothes for the first time this hospitalization. 01/19: ECT #9 today. planning to complete series of 12 as of next sunday, discharge to [facility] shortly thereafter. 01/21/2023: No changes, With ECT 10. Scheduled for tomorrow 01/22: completed ECT 10. no change in presentation. finish course through 12, then DC home to [place]. 01/23: stable. ECT #11 tomorrow. 01/24: ECT #11 completed without incident. no side effects from ECT. mood improved. planning to DC to [facility]. 01/25: final ECT, #12, tomorrow. stable, improved. DC to [facility] in [place] on sunday. aftercare in [facility]. 01/26 Patient generally has shown marked improvement tolerated ECT disc charge scheduled Patient educated on: therapeutic strategies Informed Consent: understands Reason for continued inpatient stay Substantial Risk for: rapid decompensation Time Spent With Patient Time: Total time managing care of this patient today ____ minutes.
[2023-01-27 08:00] VITALS: BP 112/69; PULSE 86; RESP 18; TEMP 36.4; O2SAT 97
[2023-01-27] MEDS: Nicotine 7 MG PATCH.TD24 TRANSDERMA (08:44)
[2023-01-27] MEDS: FLUoxetine HCl 20 MG CAPSULE 40 MG PO (08:44)
--- NOTE | 2023-01-27 20:05 | HO.PSYCHPN ---
Subjective Subjective Date of Service: 01/27/23 Reason For Visit: catatonia Subjective Notes: Section 8 Interim History: Pt has been up and visible. He has been talking with peers and smiles. He reports feeling better. He remembers not talking and not moving. He reports he is looking forward to go to [facility]. He denies SI/HI. No aggression towards self or others. Pt reports he sleeps well but at times tells RN that he doesn't. Review of Systems Review of Systems Unremarkable Yes all other systems are reviewed and are negative and Unobtainable due to mental status Mental Status Exam Mental Status Exam Narrative: Mental Status Exam Narrative: Appearance: Casually dressed Behavior: Cooperative appropriate psychomotor: Within normal limits Speech: Normal volume and prosody Thought proccess logical and goal-directed Thought content: Future oriented no self-harming thoughts some concerns about the future Mood: Some anxiety Affect: Appropriate to mood somewhat constricted SI:denies HI:denies VH/AH:none Delusions: None Insight/judgment: Improved insight and judgment Memory/cog: Intact Diagnostics Vital Signs (24Hr): Vital Signs - 24 hr 01/26/23 21:15 01/27/23 08:00 Temperature 97.5 F 97.5 F Pulse Rate 113 H 86 Respiratory Rate 19 18 Blood Pressure 141/81 H 112/69 Pulse Oximetry 96 97 Oxygen Delivery Method Room Air Room Air BMI result Body Mass Index 24.7 Labs 12/23/22 17:51 Medications Medications Current Medications Acetaminophen (Acetaminophen 325 Mg Tablet) 650 mg PO Q6H PRN PRN Reason: Headache/Pain Mild Scale (1-3) Last Admin: 01/18/23 17:50 Dose: 650 mg Al Hydroxide/Mg Hydroxide (Magnesium Hydrox/Alum Hydrox 30 Ml Oral.Susp) 30 ml PO Q6H PRN PRN Reason: Heartburn/Nausea Artificial Tears (Artificial Tears 15 Ml Drops) 2 drop EYE-BOTH Q4H PRN PRN Reason: Dry Eyes Last Admin: 12/02/22 14:19 Dose: 2 drop Benzocaine (Throat Lozenge, Medicated Lozenge) 1 lozenge MUCOUS MEM Q2H PRN PRN Reason: Sore Throat Last Admin: 12/29/22 12:23 Dose: 1 lozenge Fluoxetine HCl (Fluoxetine Hcl 20 Mg Capsule) 40 mg PO DAILY [facility] Last Admin: 01/27/23 08:44 Dose: 40 mg Hydroxyzine HCl (Hydroxyzine Hcl 25 Mg Tablet) 25 mg PO Q6H PRN PRN Reason: Anxiety Last Admin: 01/18/23 17:49 Dose: 25 mg Magnesium Hydroxide (Milk Of Magnesia 30 Ml Oral.Susp) 30 ml PO DAILY PRN PRN Reason: Constipation Melatonin (Melatonin 3 Mg Tablet) 9 mg PO BEDTIME PRN PRN Reason: Insomnia Nicotine (Nicotine 7 Mg Patch.Td24) 7 mg TRANSDERMA DAILY [facility] Last Admin: 01/27/23 08:44 Dose: 7 mg Nicotine Polacrilex (Nicotine Polacrilex Lozenge 2 Mg Lozenge) 2 mg BUCCAL Q2H PRN PRN Reason: nicotine withdrawal Last Admin: 01/14/23 16:13 Dose: 2 mg Olanzapine (Olanzapine 5 Mg Tablet) 5 mg PO BEDTIME [facility] Last Admin: 01/26/23 21:34 Dose: 5 mg Ondansetron HCl (Ondansetron Hcl 4 Mg/2 Ml Vial) 4 mg IVPUSH ONCE PRN PRN Reason: Nausea and Vomiting Trazodone HCl (Trazodone Hcl 50 Mg Tablet) 50 mg PO BEDTIME PRN PRN Reason: Insomnia Last Admin: 01/26/23 22:30 Dose: 50 mg Allergies Allergies Allergy/AdvReac Type Severity Reaction Status Date / Time No Known Allergies Allergy Verified 10/31/22 14:47 Assessment & Plan Assessment & Plan (1) Catatonia: Status: Acute Code(s): F06.1 - Catatonic disorder due to known physiological condition (2) Cocaine use disorder: Status: Acute Code(s): F14.10 - Cocaine abuse, uncomplicated (3) Depression: Qualifiers: Active/Remission status: currently active Depression Type: major depressive disorder Major depression episode severity: severe Major depression recurrence: unspecified whether recurrent Psychotic features: with psychotic features Qualified Code(s): F32.3 - Major depressive disorder, single episode, severe with psychotic features Status: Acute Code(s): F32.A - Depression, unspecified Plan 11/03: 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 11/04: pt refusing meds and not taking anything PO. nevertheless appears slightly improved from yesterday, more verbal with less latency of response. advised to take meds and fluids. 11/05: ate and drank some last night. refusing meds. no longer grossly catatonic. continue current mgmt. 11/06: no PO intake in past 24H. refusing meds. parnell warning, 3-day up . 11/07: no food, had some water last night. recheck BMP. completed commitment paperwork. refusing meds. 11/08: denies eating or drinking but yesterday's breakfast tray was empty on return. commitment filed. refusing meds. 11/09: continues without PO intake, not attending to ADLs. refusing meds. hearing scheduled for next . labs from yesterday not indicative of concerning dehydration. 11/10 continue tx. more talkative, although guarded. No overt delusional content reported. denies SI/HI. 11/11: will order CMP for tomorrow morning given uncertainty ref PO intake 11/13: increase in BUN and Cr due to dehydration 11/14: continue tx. refuses medications but unable to provide explanation as to why not show understanding in terms of effects of decrease oral intake on renal function. 11/15: unchanged from last week. intermittent meals, BUN mildly elevated. court tomorrow. 11/16: court deferred for BEHZAD. no change in presentation. place on 1:1 for observation of PO intake. lying all day in bed, PMR, with shades drawn, for a darkened room. refusing medications. 11/17: DC olanzapine. offer SSRI. eating and drinking this morning, after having been put on 1:1. continue current mgmt. commitment hearing likely next . 11/18: refusing to look at or speak with MD. clearly ate and drank more yesterday, up and out of room more. nevertheless, spends vast majority of his time lying in bed in the dark. refusing meds. 11/19: ate more yesterday and last night. DC 1:1. appearing catatonic today, no eye blink staring at ceiling not responding. 11/20: moderate PO intake yesterday. appearing more catatonic today. continue to offer meds. 11/21: catatonic. no report on sleep or PO intake as pt is off 1:1. continue to offer meds. 11/22: catatonic. labs reassuring. court tomorrow. 11/23: catatonic. committed and ordered meds in court. 11/24: start ativan 2 mg TID with IM back-up for catatonia. plan to start neuroleptics and anti-depressants once catatonia improved. 11/25: decrease ativan to 1mg tid as he had no response to 2 mg and might be experiencing sedation from it 11/26: More alert on lower ativan dose but remains non-verbal and lying in bed 11/27 increase ativan back to 2mg po TID back up IM. 11/28: T/C gaining IV access to facilitate delivery of ativan; plan to increase to QID dosing. remains catatonic. case d/w nursing administration and medical artistenvironmental services director. 11/29: gain IV access today, start ativan 2 mg IV QID. was out of bed, eating and speaking yesterday evening. 11/30: 1:1 as he removed IV access, apparently. was up in kitchen getting food on evening shift. continue current mgmt. 12/01: up twice in the past 24H, ate some, swore that lights in his room had been turned on. T/C adding valium 2 mg TID IV (per court order, maximum of 8 mg ativan may be given per day) and/or antipsychotic to regimen. case D/W david. 12/02: Check comprehensive metabolic labs in AM. Continue current management. 12/03: Improved post IM dose of Zyprexa last night. Ate better. More communicative. Continue current plan of care. 12/04: some improvement over w/e. increase IM zyprexa t HS to 5 mg each. continue current mgmt. 12/05: continue current mgmt. up several times yesterday, had conversation with reza nurse, observed eating dinner. 12/06: less active yesterday. did not receive IM zyprexa last night. continue current mgmt. 12/07: received zyprexa IM last night. up for breakfast this morning, exchanged some words with MD for first time in weeks. indicated he has a depressed mood. not opposed to anti-depressant. will start prozac liquid daily. 12/08: lying in bed, not responsive. several interactions with staff yesterday, limited and often non-verbal. refused PO prozac. continue current mgmt. 12/09: still catatonic. 12/10 still catatonic 12/11/22 Patient intermittently responsive often refusing p.o. meds may require ECT 12/12/2022 Patient remains mostly electively mute intermittently catatonic with some periods of verbal discourse 12/13/22 more verbal hx of recurrent depression still gets iv ativan refuses po meds 12 14 22 Continue Ativan and intravenous is encouraged fluoxetine continue olanzapine 5 mg patient does not appear to be psychotic would encourage ECT 12/15/2022 Continue plan of care labs reviewed sodium creatinine within normal limits 12/16: Continue current regimen and plans. Switch Zyprexa to a.m. use. 12/17: Continue current regimen and plans. Decrease Ativan by 2 mg and increase Zyprexa by 10 mg 12/18: continue current regimen. no change in catatonic presentation. 12/19: return ativan to 2 mg QID and zyprexa to 10 mg QHS only. 12/20: due to possibility of akathisia from zyprexa, will try lower potency anti-psychotic, thorazine. DC zyprexa and start thorazine 100 mg PO QHS with 50 mg IM if refuses PO. 12/21: received thorazine last NOC, IM. ate dinner and spoke with EMERY cobb. generally no improvement, no change in presentation. 12/22: awake briefly this morning, endorsing depression. vague, unable to state preference for Tx. continue current mgmt. hearing scheduled for next sunday re ECT. 12/23 ck labs consider iv fluids get med clearance ect 12/24/2022 Of Thorazine discontinued has not been effective can lower blood pressure and someone already with periods of dehydration strongly would benefit from ECT trial 12/25: continue current mgmt. up briefly today to move rooms. ate 3 meals yesterday, reportedly. hearing tomorrow for ECT. 12/26: staring today, no responses. hearing held today, judgment pending. decrease ativan to 2 mg TID in anticipation of ECT. medical clearance and EKG ordered. 12/26: staring today, no responses. IV access lost, will give IM ativan until IV access regained. awaiting word from court on ECT. 12/27: medically cleared for ECT, court ordered ECT. start ECT tomorrow. case d/w david in detail. taper ativan to 4 mg today, may need flumazenil tomorrow prior to ECT. continue ativan taper over /. 12/29: ECT #1 completed, clear improvement in mental status and insight. continue ativan taper. ECT #2 on sunday. 12/30: took PO meds yesterday morning after ECT, refusing since. continue current mgmt. 12/31: continue ativan taper. awake and verbal today. not eating or taking meds PO. ECT #2 tomorrow. 01/01: missed morning ECT due to inability to gain IV access. U/S guided IV inserted, will go for anoon ECT. PMR, inert, lying in bed; awake, however, and able to exchange a few words. 01/02 yesterday he had a he has ECT in the evening. Slight improvement. We added a midline IV access sings we could not get an IV access on the previous ECT easily. ECT tomorrow AM. 01/03: ECT #3 completed this morning. remains more alert and responsive than prior, yet still very poor PO intake and refusing PO meds. continue current mgmt. 01/04: remains alert and interactive. still PMR, poor appetite. ECT scheduled for tomorrow. 01/05: ECT #4 completed, continues more alert and engageable than prior to start of ECT. still not doing ADLs, not eating/drinking adequately. ECT #5 on sunday. 01/06: ECT #5 Sunday. Improved (known to this technical writer and editor from interaction over a month ago.). Continue current treatment plan. 01/07: Continue current management. 01/08: s/p ECT #5. improvements continue. trimmed gallegos, ate 3 meals yesterday, taking PO meds. ECT #6 . 01/09: informed SW that while catatonic had been hearing the voice of god telling him not to eat or he would go to hell. clinical presentation as per yesterday. ECT #6 tomorrow. concerned ECT is erasing [his] mind. 01/10: notably more social and visible in the milieu today. start zyprexa 5 at bedtime and increase prozac from 20 mg daily to 40 mg daily as of tomorrow. ECT #6 completed. 01/11: stably improved presentation. ECT #7 tomorrow. continue current mgmt. 01/12: ECT #7 completed without complication. stable gains. continue current mgmt. 01/13: Continue current regimen and plans 01/14: Continue current plans and regimen 01/15: Continue current regimen and plans 01/16: day by day marginal improvements. more ambulatory and social, now making discharge plans with . ECT #8 tomorrow. 01/17: for ECT #8 today. daily recovery continues. 01/18: for ECT #9 tomorrow. improving daily, today wearing street clothes for the first time this hospitalization. 01/19: ECT #9 today. planning to complete series of 12 as of next sunday, discharge to [facility] shortly thereafter. 01/21/2023: No changes, With ECT 10. Scheduled for tomorrow 01/22: completed ECT 10. no change in presentation. finish course through 12, then DC home to [place]. 01/23: stable. ECT #11 tomorrow. 01/24: ECT #11 completed without incident. no side effects from ECT. mood improved. planning to DC to longterm. 01/25: final ECT, #12, tomorrow. stable, improved. DC to longterm in [place] on sunday. aftercare in [facility]. 01/26 continue tx. 01/27 continue tx Reason for continued inpatient stay Substantial Risk for: inability to function Time Spent With Patient Time: Total time managing care of this patient today ____ minutes.
[2023-01-27 20:07] VITALS: BP 139/93; PULSE 112; RESP 18; TEMP 37; O2SAT 98
[2023-01-27] MEDS: traZODone HCL 50 MG TABLET PO ×2 (20:34→21:32)
[2023-01-27] MEDS: OLANZapine 5 MG TABLET PO (20:34)
[2023-01-28 08:00] VITALS: BP 136/88; PULSE 110; RESP 18; TEMP 37; O2SAT 95
[2023-01-28] MEDS: Nicotine 7 MG PATCH.TD24 TRANSDERMA (08:36)
[2023-01-28] MEDS: FLUoxetine HCl 20 MG CAPSULE 40 MG PO (08:37)
[2023-01-28 18:00] VITALS: BP 141/69; PULSE 112; RESP 18; TEMP 36.9; O2SAT 95
--- NOTE | 2023-01-28 20:17 | HO.PSYCHPN ---
Subjective Subjective Date of Service: 01/28/23 Reason For Visit: catatonia Subjective Notes: Section 8 Interim History: Pt continues to present as visible on the unit and social with select peers. He has been talking with peers and smiles. He reports feeling better. He remembers not talking and not moving. He reports he is looking forward to go to [facility]. He denies SI/HI. No aggression towards self or others. Pt reports he sleeps well but at times tells RN that he doesn't. Review of Systems Review of Systems Unremarkable Yes all other systems are reviewed and are negative and Unobtainable due to mental status Mental Status Exam Mental Status Exam Narrative: Mental Status Exam Narrative: Appearance: Casually dressed Behavior: Cooperative appropriate psychomotor: Within normal limits Speech: Normal volume and prosody Thought proccess logical and goal-directed Thought content: Future oriented no self-harming thoughts some concerns about the future Mood: Some anxiety Affect: Appropriate to mood somewhat constricted SI:denies HI:denies VH/AH:none Delusions: None Insight/judgment: Improved insight and judgment Memory/cog: Intact Diagnostics Vital Signs (24Hr): Vital Signs - 24 hr 01/28/23 08:00 Temperature 98.6 F Pulse Rate 110 H Respiratory Rate 18 Blood Pressure 136/88 Pulse Oximetry 95 Oxygen Delivery Method Room Air BMI result Body Mass Index 24.7 Labs 12/23/22 17:51 Medications Medications Current Medications Acetaminophen (Acetaminophen 325 Mg Tablet) 650 mg PO Q6H PRN PRN Reason: Headache/Pain Mild Scale (1-3) Last Admin: 01/18/23 17:50 Dose: 650 mg Al Hydroxide/Mg Hydroxide (Magnesium Hydrox/Alum Hydrox 30 Ml Oral.Susp) 30 ml PO Q6H PRN PRN Reason: Heartburn/Nausea Artificial Tears (Artificial Tears 15 Ml Drops) 2 drop EYE-BOTH Q4H PRN PRN Reason: Dry Eyes Last Admin: 12/02/22 14:19 Dose: 2 drop Benzocaine (Throat Lozenge, Medicated Lozenge) 1 lozenge MUCOUS MEM Q2H PRN PRN Reason: Sore Throat Last Admin: 12/29/22 12:23 Dose: 1 lozenge Fluoxetine HCl (Fluoxetine Hcl 20 Mg Capsule) 40 mg PO DAILY GABRIEL Last Admin: 01/28/23 08:37 Dose: 40 mg Hydroxyzine HCl (Hydroxyzine Hcl 25 Mg Tablet) 25 mg PO Q6H PRN PRN Reason: Anxiety Last Admin: 01/18/23 17:49 Dose: 25 mg Magnesium Hydroxide (Milk Of Magnesia 30 Ml Oral.Susp) 30 ml PO DAILY PRN PRN Reason: Constipation Melatonin (Melatonin 3 Mg Tablet) 9 mg PO BEDTIME PRN PRN Reason: Insomnia Nicotine (Nicotine 7 Mg Patch.Td24) 7 mg TRANSDERMA DAILY GABRIEL Last Admin: 01/28/23 08:36 Dose: 7 mg Nicotine Polacrilex (Nicotine Polacrilex Lozenge 2 Mg Lozenge) 2 mg BUCCAL Q2H PRN PRN Reason: nicotine withdrawal Last Admin: 01/14/23 16:13 Dose: 2 mg Olanzapine (Olanzapine 5 Mg Tablet) 5 mg PO BEDTIME GABRIEL Last Admin: 01/27/23 20:34 Dose: 5 mg Ondansetron HCl (Ondansetron Hcl 4 Mg/2 Ml Vial) 4 mg IVPUSH ONCE PRN PRN Reason: Nausea and Vomiting Trazodone HCl (Trazodone Hcl 50 Mg Tablet) 50 mg PO BEDTIME PRN PRN Reason: Insomnia Last Admin: 01/27/23 21:32 Dose: 50 mg Allergies Allergies Allergy/AdvReac Type Severity Reaction Status Date / Time No Known Allergies Allergy Verified 10/31/22 14:47 Assessment & Plan Assessment & Plan (1) Catatonia: Status: Acute Code(s): F06.1 - Catatonic disorder due to known physiological condition (2) Cocaine use disorder: Status: Acute Code(s): F14.10 - Cocaine abuse, uncomplicated (3) Depression: Qualifiers: Active/Remission status: currently active Depression Type: major depressive disorder Major depression episode severity: severe Major depression recurrence: unspecified whether recurrent Psychotic features: with psychotic features Qualified Code(s): F32.3 - Major depressive disorder, single episode, severe with psychotic features Status: Acute Code(s): F32.A - Depression, unspecified Plan 11/03: 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 11/04: pt refusing meds and not taking anything PO. nevertheless appears slightly improved from yesterday, more verbal with less latency of response. advised to take meds and fluids. 11/05: ate and drank some last night. refusing meds. no longer grossly catatonic. continue current mgmt. 11/06: no PO intake in past 24H. refusing meds. parnell warning, 3-day up . 11/07: no food, had some water last night. recheck BMP. completed commitment paperwork. refusing meds. 11/08: denies eating or drinking but yesterday's breakfast tray was empty on return. commitment filed. refusing meds. 11/09: continues without PO intake, not attending to ADLs. refusing meds. hearing scheduled for next . labs from yesterday not indicative of concerning dehydration. 11/10 continue tx. more talkative, although guarded. No overt delusional content reported. denies SI/HI. 11/11: will order CMP for tomorrow morning given uncertainty ref PO intake 11/13: increase in BUN and Cr due to dehydration 11/14: continue tx. refuses medications but unable to provide explanation as to why not show understanding in terms of effects of decrease oral intake on renal function. 11/15: unchanged from last week. intermittent meals, BUN mildly elevated. court tomorrow. 11/16: court deferred for BEHZAD. no change in presentation. place on 1:1 for observation of PO intake. lying all day in bed, PMR, with shades drawn, for a darkened room. refusing medications. 11/17: DC olanzapine. offer SSRI. eating and drinking this morning, after having been put on 1:1. continue current mgmt. commitment hearing likely next . 11/18: refusing to look at or speak with MD. clearly ate and drank more yesterday, up and out of room more. nevertheless, spends vast majority of his time lying in bed in the dark. refusing meds. 11/19: ate more yesterday and last night. DC 1:1. appearing catatonic today, no eye blink staring at ceiling not responding. 11/20: moderate PO intake yesterday. appearing more catatonic today. continue to offer meds. 11/21: catatonic. no report on sleep or PO intake as pt is off 1:1. continue to offer meds. 11/22: catatonic. labs reassuring. court tomorrow. 7/13: catatonic. committed and ordered meds in court. 11/24: start ativan 2 mg TID with IM back-up for catatonia. plan to start neuroleptics and anti-depressants once catatonia improved. 11/25: decrease ativan to 1mg tid as he had no response to 2 mg and might be experiencing sedation from it 11/26: More alert on lower ativan dose but remains non-verbal and lying in bed 11/27 increase ativan back to 2mg po TID back up IM. 11/28: T/C gaining IV access to facilitate delivery of ativan; plan to increase to QID dosing. remains catatonic. case d/w nursing administration and medical staff managerdirector biomedical engineering. 11/29: gain IV access today, start ativan 2 mg IV QID. was out of bed, eating and speaking yesterday evening. 11/30: 1:1 as he removed IV access, apparently. was up in kitchen getting food on evening shift. continue current mgmt. 12/01: up twice in the past 24H, ate some, swore that lights in his room had been turned on. T/C adding valium 2 mg TID IV (per court order, maximum of 8 mg ativan may be given per day) and/or antipsychotic to regimen. case D/W david. 12/02: Check comprehensive metabolic labs in AM. Continue current management. 12/03: Improved post IM dose of Zyprexa last night. Ate better. More communicative. Continue current plan of care. 12/04: some improvement over w/e. increase IM zyprexa t HS to 5 mg each. continue current mgmt. 12/05: continue current mgmt. up several times yesterday, had conversation with reza nurse, observed eating dinner. 12/06: less active yesterday. did not receive IM zyprexa last night. continue current mgmt. 12/07: received zyprexa IM last night. up for breakfast this morning, exchanged some words with MD for first time in weeks. indicated he has a depressed mood. not opposed to anti-depressant. will start prozac liquid daily. 12/08: lying in bed, not responsive. several interactions with staff yesterday, limited and often non-verbal. refused PO prozac. continue current mgmt. 12/09: still catatonic. 12/10 still catatonic 12/11/22 Patient intermittently responsive often refusing p.o. meds may require ECT 12/12/2022 Patient remains mostly electively mute intermittently catatonic with some periods of verbal discourse 12/13/22 more verbal hx of recurrent depression still gets iv ativan refuses po meds 12 14 22 Continue Ativan and intravenous is encouraged fluoxetine continue olanzapine 5 mg patient does not appear to be psychotic would encourage ECT 12/15/2022 Continue plan of care labs reviewed sodium creatinine within normal limits 12/16: Continue current regimen and plans. Switch Zyprexa to a.m. use. 12/17: Continue current regimen and plans. Decrease Ativan by 2 mg and increase Zyprexa by 10 mg 12/18: continue current regimen. no change in catatonic presentation. 12/19: return ativan to 2 mg QID and zyprexa to 10 mg QHS only. 12/20: due to possibility of akathisia from zyprexa, will try lower potency anti-psychotic, thorazine. DC zyprexa and start thorazine 100 mg PO QHS with 50 mg IM if refuses PO. 12/21: received thorazine last NOC, IM. ate dinner and spoke with EMERY cobb. generally no improvement, no change in presentation. 12/22: awake briefly this morning, endorsing depression. vague, unable to state preference for Tx. continue current mgmt. hearing scheduled for next sunday re ECT. 12/23 ck labs consider iv fluids get med clearance ect 12/24/2022 Of Thorazine discontinued has not been effective can lower blood pressure and someone already with periods of dehydration strongly would benefit from ECT trial 12/25: continue current mgmt. up briefly today to move rooms. ate 3 meals yesterday, reportedly. hearing tomorrow for ECT. 12/26: staring today, no responses. hearing held today, judgment pending. decrease ativan to 2 mg TID in anticipation of ECT. medical clearance and EKG ordered. 12/26: staring today, no responses. IV access lost, will give IM ativan until IV access regained. awaiting word from court on ECT. 12/27: medically cleared for ECT, court ordered ECT. start ECT tomorrow. case d/w david in detail. taper ativan to 4 mg today, may need flumazenil tomorrow prior to ECT. continue ativan taper over w/e. 12/29: ECT #1 completed, clear improvement in mental status and insight. continue ativan taper. ECT #2 on sunday. 12/30: took PO meds yesterday morning after ECT, refusing since. continue current mgmt. 12/31: continue ativan taper. awake and verbal today. not eating or taking meds PO. ECT #2 tomorrow. 01/01: missed morning ECT due to inability to gain IV access. U/S guided IV inserted, will go for anoon ECT. PMR, inert, lying in bed; awake, however, and able to exchange a few words. 01/02 yesterday he had a he has ECT in the evening. Slight improvement. We added a midline IV access sings we could not get an IV access on the previous ECT easily. ECT tomorrow AM. 01/03: ECT #3 completed this morning. remains more alert and responsive than prior, yet still very poor PO intake and refusing PO meds. continue current mgmt. 01/04: remains alert and interactive. still PMR, poor appetite. ECT scheduled for tomorrow. 01/05: ECT #4 completed, continues more alert and engageable than prior to start of ECT. still not doing ADLs, not eating/drinking adequately. ECT #5 on sunday. 01/06: ECT #5 Sunday. Improved (known to this ad copy writer from interaction over a month ago.). Continue current treatment plan. 01/07: Continue current management. 01/08: s/p ECT #5. improvements continue. trimmed gallegos, ate 3 meals yesterday, taking PO meds. ECT #6 . 01/09: informed SW that while catatonic had been hearing the voice of god telling him not to eat or he would go to hell. clinical presentation as per yesterday. ECT #6 tomorrow. concerned ECT is erasing [his] mind. 01/10: notably more social and visible in the milieu today. start zyprexa 5 at bedtime and increase prozac from 20 mg daily to 40 mg daily as of tomorrow. ECT #6 completed. 01/11: stably improved presentation. ECT #7 tomorrow. continue current mgmt. 01/12: ECT #7 completed without complication. stable gains. continue current mgmt. 01/13: Continue current regimen and plans 01/14: Continue current plans and regimen 01/15: Continue current regimen and plans 01/16: day by day marginal improvements. more ambulatory and social, now making discharge plans with . ECT #8 tomorrow. 01/17: for ECT #8 today. daily recovery continues. 01/18: for ECT #9 tomorrow. improving daily, today wearing street clothes for the first time this hospitalization. 01/19: ECT #9 today. planning to complete series of 12 as of next sunday, discharge to [facility] shortly thereafter. 01/21/2023: No changes, With ECT 10. Scheduled for tomorrow 01/22: completed ECT 10. no change in presentation. finish course through 12, then DC home to [place]. 01/23: stable. ECT #11 tomorrow. 01/24: ECT #11 completed without incident. no side effects from ECT. mood improved. planning to DC to halfway. 01/25: final ECT, #12, tomorrow. stable, improved. DC to halfway in [place] on sunday. aftercare in [facility]. 01/26 continue tx. 01/27 continue tx. 01/28 continue tx. Reason for continued inpatient stay Substantial Risk for: inability to function Time Spent With Patient Time: Total time managing care of this patient today ____ minutes.
[2023-01-28] MEDS: OLANZapine 5 MG TABLET PO (20:36)
[2023-01-28] MEDS: Melatonin 3 MG TABLET 9 MG PO (20:37)
[2023-01-29 08:00] VITALS: BP 162/76; PULSE 89; RESP 18; TEMP 36.7; O2SAT 97
[2023-01-29] MEDS: FLUoxetine HCl 20 MG CAPSULE 40 MG PO (08:02)
[2023-01-29] MEDS: Nicotine 7 MG PATCH.TD24 TRANSDERMA (08:04)
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
== END 2023-01-29 11:21 | disposition home or self-care (01) | DRG 751 ==
PROVIDERS: Psychiatry & Neurology Psychiatry; Social Worker; Admitting Provider Psychiatry & Neurology Psychiatry; Visit Provider Psychiatry & Neurology Psychiatry
PROC: GZB4ZZZ Other Electroconvulsive Therapy (ICD-10-PCS; CPT 90870; principal; 2022-12-29 15:30)
PROC: 05H933Z Insertion of Infusion Device into Right Brachial Vein, Percutaneous Approach (ICD-10-PCS; principal; 2023-01-18 09:00)
DX: F32.3 Major depressive disorder, single episode, severe with psychotic features (principal); F06.1 Catatonic disorder due to known physiological condition; F14.10 Cocaine abuse, uncomplicated; F17.210 Nicotine dependence, cigarettes, uncomplicated; Z71.6 Tobacco abuse counseling
CPT/HCPCS: 36410; 36415; 80048; 80053; 82565; 90870; 93005; C1751; J0330; J1642; J1885; J2060; J2250; J2405; J3230

== ENCOUNTER → 2022-11-03 14:55 | Outpatient (BNV) | payer MEDICAID, SELFPAY | PROVIDERS: Admitting Provider Psychiatry & Neurology Psychiatry; Visit Provider Physician Assistant | DX: Z01.818 Encounter for other preprocedural examination (principal) | CPT/HCPCS: 99232; 99429 ==

== ENCOUNTER → 2022-11-03 14:55 | Outpatient (BNV) | payer OTHER, SELFPAY | PROVIDERS: Admitting Provider Psychiatry & Neurology Psychiatry; Visit Provider Psychiatry & Neurology Psychiatry | DX: F06.1 Catatonic disorder due to known physiological condition (principal); F14.10 Cocaine abuse, uncomplicated; F32.3 Major depressive disorder, single episode, severe with psychotic features | CPT/HCPCS: 90870; 99231; 99232; 99233; 99499 ==

== ENCOUNTER → 2022-11-03 14:55 | Outpatient (BNV) | payer OTHER, SELFPAY | PROVIDERS: Admitting Provider Psychiatry & Neurology Psychiatry; Visit Provider Psychiatry & Neurology Psychiatry | DX: F33.3 Major depressive disorder, recurrent, severe with psychotic symptoms (principal); F06.1 Catatonic disorder due to known physiological condition; F14.10 Cocaine abuse, uncomplicated | CPT/HCPCS: 90870; 99231; 99232 ==